=== PATIENT | female | born 1960 | race Caucasian/White ===

== ENCOUNTER 2016-04-17 13:51 | Emergency (ER) | payer MEDICARE, OTHER ==
[2016-04-17] MEDS ORDERED: SODIUM CHLORIDE 0.9% 1,000 ML IV STA (15:40)
[2016-04-17] MEDS ORDERED: HYDROmorphone 1 MG/ML 1 ML SYRINGE IVP STA (15:40)
[2016-04-17] MEDS ORDERED: RX INFO: IV CONTRAST WAS GIVEN 1 EACH MISC MISCELLANE PRN (15:40)
[2016-04-17] MEDS ORDERED: ONDANSETRON 4 MG/2 ML VIAL IVP STA (15:40)
--- NOTE | 2016-04-17 15:50 | ED ---
Abdominal Pain HPI - General Chief Complaint: Abdominal Pain Stated Complaint: abdominal pain/poss bowel obstruction Time Seen by Provider: 04/17/16 15:33 Source: patient, RN notes reviewed Mode of arrival: ambulatory Limitations: no limitations - History of Present Illness Initial Comments: 54 old female presents to the emergency department with a chief complaint of abdominal pain. Patient recently had an obstruction back in February and did have: Surgery due to the obstruction. Patient states that over the last week or so she's noticed some increased nausea and some abdominal pain and now her belly feels hard. She contacted her surgeon Dr. Sanchez about what she was feeling and he referred her to the emergency room. She was scheduled to have a CAT scan done outpatient we however her symptoms worsen so she came to the ER. The patient denies any fever or chills. She states she is having dry heaves. She states that she has had a bowel movement about 2 days ago. Patient states she is passing very minimal gas. Patient states she was concerned due to symptoms that she thought that they should be seen.Patient denies any recent fever, chills, shortness of breath, chest pain, back pain, numbness or tingling , dysuria or hematuria, constipation or diarrhea, headaches or visual changes, or any other current symptoms. - Related Data Home Medications Medication Instructions Recorded Confirmed ALPRAZolam [Xanax] 1 mg PO QID PRN 03/21/16 04/17/16 Albuterol Inhaler [Ventolin Hfa 2 puff INHALATION RT-Q4H PRN 03/21/16 04/17/16 Inhaler] DULoxetine HCL [Cymbalta] 60 mg PO DAILY 03/21/16 04/17/16 Fluticasone Nasal [place] [Flonase 1 spr EA NOSTRIL DAILY PRN 03/21/16 04/17/16 Nasal [place]] HYDROcodone/APAP 10-325MG [[place] 1 tab PO Q6H PRN 03/21/16 04/17/16 10-325] Ibuprofen [Motrin] 800 mg PO TID PRN 03/21/16 04/17/16 Promethazine [Phenergan] 25 mg PO HS PRN 03/21/16 04/17/16 SUMAtriptan SUCCINATE [Imitrex] 100 mg PO DAILY PRN 12/22/16 01/18/17 Topiramate [Topamax] 25 mg PO HS 03/21/16 04/17/16 carBAMazepine [TEGretol] 400 mg PO Q12H 03/21/16 04/17/16 hydrOXYzine HCL [Atarax] 50 mg PO TID PRN 03/21/16 04/17/16 Bisacodyl [Dulcolax] 5 mg PO BID PRN 04/17/16 04/17/16 Estradiol [Estrace] 1 mg PO DAILY 04/17/16 04/17/16 Previous Rx's Medication Instructions Recorded Docusate [Colace] 100 mg PO BID PRN #30 capsule 03/28/16 Allergies Allergy/AdvReac Type Severity Reaction Status Date / Time No Known Allergies Allergy Verified 04/17/16 15:55 Review of Systems ROS Statement: Those systems with pertinent positive or pertinent negative responses have been documented in the HPI. ROS Other: All systems not noted in ROS Statement are negative. Past Medical History Additional Past Medical History / Comment(s): anxiety, chronic back pain, ulcers , chronic samuel-bladder only holds 100ml per pt. History of Any Multi-Drug Resistant Organisms: None Reported Past Surgical History: Cholecystectomy, Hysterectomy Additional Past Surgical History / Comment(s): bladder suspension, gastric bypass, bowel obstruction Past Anesthesia/Blood Transfusion Reactions: No Reported Reaction Past Psychological History: Anxiety, Bipolar Smoking Status: Never smoker Past Alcohol Use History: None Reported Past Drug Use History: None Reported - Past Family History Mother Additional Family Medical History / Comment(s): no history General Exam - General Exam Comments Initial Comments: General: The patient is awake and alert, in no distress, and does not appear acutely ill. Eye: Pupils are equal, round and reactive to light, extra-ocular movements are intact; there is normal conjunctiva bilaterally. No signs of icterus. Ears, nose, mouth and throat: There are moist mucous membranes and no oral lesions. Neck: The neck is supple, there is no tenderness. Cardiovascular: There is a regular rate and rhythm. No murmur, rub or gallop is appreciated. Respiratory: Lungs are clear to auscultation, respirations are non-labored, breath sounds are equal. No wheezes, stridor, rales, or rhonchi. Gastrointestinal: Heart, distended, tenderness in lower quadrant of the abdomen without masses or organomegaly noted. There is no rebound or guarding present. No CVA tenderness. Bowel sounds are unremarkable. Back: There is no tenderness to palpation in the midline. There is no obvious deformity. No rashes noted. Musculoskeletal: Normal ROM, no tenderness, There is no pedal edema. There is no calf tenderness or swelling. Sensation intact. Pulses equal bilaterally 2+. Neurological: CN II-XII intact, There are no obvious motor or sensory deficits. Coordination appears grossly intact. Speech is normal. Skin: Skin is warm and dry and no rashes or lesions are noted. Psychiatric: Cooperative, appropriate mood & affect, normal judgment. Limitations: no limitations Course Vital Signs 04/17/16 04/17/16 14:35 16:32 Temperature 98.0 F Pulse Rate 84 76 Respiratory 18 14 Rate Blood Pressure 202/104 187/102 O2 Sat by Pulse 99 96 Oximetry Medical Decision Making - Medical Decision Making 55-year-old female presents emergency department with a chief complaint of abdominal pain with history of abdominal surgery. At this time patient's blood work is reviewed that does show hyponatremia. Patient did receive a liter of fluids when looking through previous Nae does appear that she does suffer from hyponatremia chronically. Patient's CAT scan results reviewed and Dr. Biswas was contacted via Dr. English for review. At this time Dr. Sanchez states he like to follow-up with the patient in the morning. He was informed of lab results as well as CT results he states he will see her in the morning at the office. This time the patient is in agreement with plan and does feel comfortable. At this time she will be discharged home. She states that she is feeling better. - Lab Data Result diagrams: 04/17/16 16:10 04/17/16 16:10 Lab Results 04/17/16 04/17/16 04/17/16 Range/Units 16:10 16:10 16:10 WBC 5.5 (3.8-10.6) k/uL RBC 3.83 (3.80-5.40) m/uL Hgb 11.6 (11.4-16.0) gm/dL Hct 34.5 (34.0-46.0) % MCV 90.2 D (80.0-100.0) fL MCH 30.2 (25.0-35.0) pg MCHC 33.5 (31.0-37.0) g/dL RDW 13.0 (11.5-15.5) % Plt Count 704 H (150-450) k/uL Neutrophils % 67 % Lymphocytes % 20 % Monocytes % 6 % Eosinophils % 4 % Basophils % 1 % Neutrophils # 3.7 (1.3-7.7) k/uL Lymphocytes # 1.1 (1.0-4.8) k/uL Monocytes # 0.3 (0-1.0) k/uL Eosinophils # 0.2 (0-0.7) k/uL Basophils # 0.0 (0-0.2) k/uL PT 9.4 (9.0-12.0) sec INR 0.9 (<1.1) APTT 23.5 (22.0-30.0) sec Sodium 123 L (137-145) mmol/L Potassium 4.3 (3.5-5.1) mmol/L Chloride 90 L (98-107) mmol/L Carbon Dioxide 21 L (22-30) mmol/L Anion Gap 12 mmol/L BUN 7 (7-17) mg/dL Creatinine 0.46 L (0.52-1.04) mg/dL Est GFR (MDRD) Af Amer >60 (>60 ml/min/1.73 sqM) Est GFR (MDRD) Non-Af >60 (>60 ml/min/1.73 sqM) Glucose 103 H (74-99) mg/dL Calcium 9.3 (8.4-10.2) mg/dL Total Bilirubin 0.4 (0.2-1.3) mg/dL AST 13 L (14-36) U/L ALT 49 (9-52) U/L Alkaline Phosphatase 196 H (38-126) U/L Total Protein 7.0 (6.3-8.2) g/dL Albumin 3.8 (3.5-5.0) g/dL Amylase 59 (30-110) U/L Urine Color Urine Appearance (Clear) Urine pH (5.0-8.0) Ur Specific [place] (1.001-1.035) Urine Protein (Negative) Urine Glucose (UA) (Negative) Urine Ketones (Negative) Urine Blood (Negative) Urine Nitrate (Negative) Urine Bilirubin (Negative) Urine Urobilinogen (<2.0) mg/dL Ur Leukocyte Esterase (Negative) 04/17/16 Range/Units 16:25 WBC (3.8-10.6) k/uL RBC (3.80-5.40) m/uL Hgb (11.4-16.0) gm/dL Hct (34.0-46.0) % MCV (80.0-100.0) fL MCH (25.0-35.0) pg MCHC (31.0-37.0) g/dL RDW (11.5-15.5) % Plt Count (150-450) k/uL Neutrophils % % Lymphocytes % % Monocytes % % Eosinophils % % Basophils % % Neutrophils # (1.3-7.7) k/uL Lymphocytes # (1.0-4.8) k/uL Monocytes # (0-1.0) k/uL Eosinophils # (0-0.7) k/uL Basophils # (0-0.2) k/uL PT (9.0-12.0) sec INR (<1.1) APTT (22.0-30.0) sec Sodium (137-145) mmol/L Potassium (3.5-5.1) mmol/L Chloride (98-107) mmol/L Carbon Dioxide (22-30) mmol/L Anion Gap mmol/L BUN (7-17) mg/dL Creatinine (0.52-1.04) mg/dL Est GFR (MDRD) Af Amer (>60 ml/min/1.73 sqM) Est GFR (MDRD) Non-Af (>60 ml/min/1.73 sqM) Glucose (74-99) mg/dL Calcium (8.4-10.2) mg/dL Total Bilirubin (0.2-1.3) mg/dL AST (14-36) U/L ALT (9-52) U/L Alkaline Phosphatase (38-126) U/L Total Protein (6.3-8.2) g/dL Albumin (3.5-5.0) g/dL Amylase (30-110) U/L Urine Color Colorless Urine Appearance Clear (Clear) Urine pH 6.5 (5.0-8.0) Ur Specific [place] 1.002 (1.001-1.035) Urine Protein Negative (Negative) Urine Glucose (UA) Negative (Negative) Urine Ketones Negative (Negative) Urine Blood Negative (Negative) Urine Nitrate Negative (Negative) Urine Bilirubin Negative (Negative) Urine Urobilinogen <2.0 (<2.0) mg/dL Ur Leukocyte Esterase Negative (Negative) - Radiology Data Radiology results: report reviewed, image reviewed Disposition Clinical Impression: Abdominal pain, Hyponatremia Disposition: HOME SELF-CARE Condition: Stable Instructions: Abdominal Pain (ED) Additional Instructions: Please use medication as discussed. Please follow up with family doctor if symptoms have not improved over the next two days. Please return to the emergency room if your symptoms increase or worsen or for any other concerns. Follow-up with Dr. Biswas in the morning. Referrals: Brenden Bolanos MD [Primary Care Provider] - 1-2 days Wilfrid Sanchez MD [Medical Doctor] - 1-2 days Time of Disposition: 18:05
[2016-04-17 16:35] LABS: Basophils % (A) 1 %; CH 31.4; CHCM 34.9; Eosinophils # (A) 0.2 k/uL (0-0.7); Eosinophils % (A) 4 %; HCT 34.5 % (34.0-46.0); HDW 2.94; HGB 11.6 gm/dL (11.4-16.0); Luc # (Auto) 0.14; Luc % (Auto) 3; Lymphocytes # (A) 1.1 k/uL (1.0-4.8); Lymphocytes % (A) 20 %; MCH 30.2 pg (25.0-35.0); MCHC 33.5 g/dL (31.0-37.0); Mean Platelet Volume 6.3; Monocytes # (A) 0.3 k/uL (0-1.0); Monocytes % (A) 6 %; Neutrophils # (A) 3.7 k/uL (1.3-7.7); Neutrophils % (A) 67 %; RBC 3.83 m/uL (3.80-5.40); WBC 5.5 k/uL (3.8-10.6); WBC (Perox) 5.79
[2016-04-17 16:42] LABS: INR 0.9 (<1.1); Partial Thromboplastin Time 23.5 sec (22.0-30.0); Prothrombin Time 9.4 sec (9.0-12.0)
[2016-04-17 16:43] LABS: MCV 90.2 fL (80.0-100.0)
[2016-04-17 16:46] LABS: ALT 49 U/L (9-52); AST 13 U/L (14-36); Alkaline Phosphatase 196 U/L (38-126); Amylase 59 U/L (30-110); Anion Gap 12 mmol/L; Blood Urea Nitrogen 7 mg/dL (7-17); Calcium 9.3 mg/dL (8.4-10.2); Carbon Dioxide 21 mmol/L (22-30); Chloride 90 mmol/L (98-107); Glucose 103 mg/dL (74-99); Non-African American GFR(MDRD) >60 (>60 ml/min/1.73 sqM); Potassium 4.3 mmol/L (3.5-5.1); Sodium 123 mmol/L (137-145); Total Bilirubin 0.4 mg/dL (0.2-1.3)
[2016-04-17 17:07] LABS: Appearance,Urine Clear (Clear); Bilirubin,Urine Negative (Negative); Glucose,Urine (UA) Negative (Negative); Ketones,Urine Negative (Negative); Leukocyte Esterase,Urine Negative (Negative); Nitrite,Urine Negative (Negative); PH, Urine 6.5 (5.0-8.0); Protein,Urine Negative (Negative); Specific Gravity,Urine 1.002 (1.001-1.035); UA Billing (MACRO vs. MICRO) CHEM; Urobilinogen,Urine <2.0 mg/dL (<2.0)
--- NOTE | 2016-04-17 17:09 | CT ---
EXAMINATION TYPE: CT abdomen pelvis w con DATE OF EXAM: 04/17/2016 4:52 PM COMPARISON: 03/21/2016 HISTORY: 55-year-old female 1 month post op obstruction surgery. Generalized pain with nausea TECHNIQUE: Contiguous axial scanning of the abdomen and pelvis following administration of 100 ml Omn ipaque 300 IV contrast. Delayed images through the kidneys and coronal/sagittal reconstructions perf ormed. CT DLP: 331.4 mGycm Automated exposure control for dose reduction was used. FINDINGS: Bilateral breast implants. Heart is normal size without pericardial effusion. Lung bases are clear without pleural effusion.. Redemonstrated intrahepatic and extrahepatic ductal dilatation with the bile duct measuring 1.5 cm. C holecystectomy clips are present. Portal venous system appears patent. No focal liver lesions seen. Adrenal glands, left kidney, spleen, pancreas appear grossly unremarkable. There are reticulations within the subcutaneous fat of the anterior abdomen and some focal thickening in the midline infraumbilical region along the anterior abdominal wall. Embedded within this thicken ing, there is a right paramedian area of 1.9 cm hyperdensity of unknown etiology, axial image 46 and coronal image 12. Numerous fluid-filled small bowel loops in the mid and lower abdomen. No dilated small bowel, free fl uid, or free air. Postsurgical changes of Sonia-en-Y gastric bypass. There appears to be some retained barium contrast w ithin some of the mid abdominal small bowel loops near the lower anastomosis. Paucity of intra-abdominal fat limits assessment for lymphadenopathy. Bladder is nondistended with Storey catheter in place. Uterus and ovaries not clearly delineated from clustered bowel loops. No abnormal fluid collection in the pelvis. Bones: No osseous destructive process. IMPRESSION: 1. SOME MILD INFLAMMATION ALONG THE MID TO LOWER ANTERIOR ABDOMINAL WALL COULD BE ON A POSTSURGICAL B ASIS. CORRELATE TO EXCLUDE CELLULITIS. 2. THERE IS FOCAL THICKENING OF THE INFRAUMBILICAL ABDOMINAL WALL MUSCULATURE ALONG THE MIDLINE WITH A RIGHT PARAMEDIAN FOCUS OF HYPERDENSITY MEASURING 1.9 CM EMBEDDED WITHIN THE MUSCULATURE. THE ETIOLO GY IS UNCERTAIN BUT DOES NOT APPEAR TO REPRESENT A FOCAL AREA OF HEMORRHAGE. POSSIBLE RETAINED SURGIC AL MATERIAL. CONSIDER TARGETED ULTRASOUND TO ATTEMPT FURTHER CHARACTERIZATION. 3. PERSISTENT INTRAHEPATIC AND EXTRA HEPATIC BILIARY DUCTAL DILATATION GREATER THAN EXPECTED POSTCHOL ECYSTECTOMY STATUS. FINDINGS MAY BE CHRONIC. CORRELATE WITH ALKALINE PHOSPHATASE AND BILIRUBIN LEVELS TO EXCLUDE BILIARY OBSTRUCTION.
[2016-04-17 18:51] VITALS: BP 165/95; PULSE 85; RESP 18; TEMP 99
== END 2016-04-17 18:52 | disposition home or self-care (01) ==
LOC: EC 13:51
DX: E87.1 Hypo-osmolality and hyponatremia (principal); R10.9 Unspecified abdominal pain; F41.9 Anxiety disorder, unspecified; F31.9 Bipolar disorder, unspecified; Z98.84 Bariatric surgery status; Z79.899 Other long term (current) drug therapy
CPT/HCPCS: 99284; 96374; 96375; 96361 ×2; 36415; 80053; 82150; 85025; 85610; 85730; 81003; 87040; 87086; 87077; 87186; 74177; J2405; J1170; Q9967

== ENCOUNTER 2016-04-24 18:38 | Inpatient (IN) | payer MEDICARE, OTHER ==
[2016-04-24] MEDS ORDERED: MELATONIN 3 MG TABLET PO PRN (20:09)
[2016-04-24] MEDS ORDERED: NALOXONE 0.4 MG/ML 1 ML VIAL IV PRN (20:09)
[2016-04-24] MEDS ORDERED: BISACODYL 5 MG TABLET.DR PO PRN (20:11)
[2016-04-24] MEDS ORDERED: hydrOXYzine HCL 25 MG TAB PO PRN (20:11)
[2016-04-24] MEDS ORDERED: FLUTICASONE 50MCG/SPRAY NASAL 16GM EA NOSTRIL PRN (20:11)
[2016-04-24] MEDS ORDERED: DOCUSATE 100 MG CAP PO PRN (20:11)
[2016-04-24] MEDS ORDERED: ALBUTEROL NEBULIZED 2.5 MG/3 ML INHALATION PRN (20:11)
[2016-04-24] MEDS ORDERED: LACTATED RINGERS 1,000 ML IV SCH (20:15)
[2016-04-24 21:02] LABS: ALT 28 U/L (9-52); AST 14 U/L (14-36); Alkaline Phosphatase 149 U/L (38-126); Amylase 100 U/L (30-110); Anion Gap 10 mmol/L; Blood Urea Nitrogen 10 mg/dL (7-17); Calcium 9.1 mg/dL (8.4-10.2); Carbon Dioxide 24 mmol/L (22-30); Chloride 100 mmol/L (98-107); Glucose 132 mg/dL (74-99); Non-African American GFR(MDRD) >60 (>60 ml/min/1.73 sqM); Phosphorous 4.2 mg/dL (2.5-4.5); Potassium 5.5 mmol/L (3.5-5.1); Sodium 134 mmol/L (137-145); Total Bilirubin 0.3 mg/dL (0.2-1.3); Total Protein 6.8 g/dL (6.3-8.2)
[2016-04-24 21:16] LABS: Basophils # (A) 0.1 k/uL (0-0.2); Basophils % (A) 1 %; CH 30.2; CHCM 31.8; Eosinophils # (A) 0.9 k/uL (0-0.7); Eosinophils % (A) 10 %; HCT 34.3 % (34.0-46.0); HDW 2.82; Hypochromasia Slight; Luc # (Auto) 0.18; Luc % (Auto) 2; Lymphocytes # (A) 1.8 k/uL (1.0-4.8); Lymphocytes % (A) 20 %; MCH 30.5 pg (25.0-35.0); Mean Platelet Volume 6.2; Monocytes # (A) 0.4 k/uL (0-1.0); Monocytes % (A) 4 %; Neutrophils # (A) 5.7 k/uL (1.3-7.7); Neutrophils % (A) 64 %; RDW 13.5 % (11.5-15.5); WBC (Perox) 9.42
[2016-04-24 21:24] LABS: MCV 95.4 fL (80.0-100.0)
[2016-04-24] MEDS: HYDROcodone/APAP 5-325MG 1 EACH TAB PO PRN (21:54)
[2016-04-24] MEDS: ALPRAZolam 0.5 MG TAB PO PRN (21:55)
[2016-04-24] MEDS: TOPIRAMATE 25 MG TAB PO SCH (21:56)
[2016-04-24] MEDS: carBAMazepine 200 MG TAB PO SCH (21:56)
[2016-04-24] MEDS: ZOLPIDEM 10 MG TAB PO SCH (22:59)
[2016-04-25] MEDS: HYDROcodone/APAP 5-325MG 1 EACH TAB PO PRN ×5 (02:20→19:48)
[2016-04-25] MEDS: ESTRADIOL 1 MG TAB PO SCH (08:04)
[2016-04-25] MEDS: DULoxetine HCL 60 MG CAPSULE.DR PO SCH (08:04)
[2016-04-25] MEDS: carBAMazepine 200 MG TAB PO SCH ×2 (08:04→21:15)
[2016-04-25] MEDS: ALPRAZolam 0.5 MG TAB PO PRN ×3 (09:22→22:47)
[2016-04-25] MEDS: KETOROLAC 30 MG/ML 1 ML VIAL IVP PRN ×2 (10:40→17:38)
[2016-04-25] MEDS ORDERED: IV VANCOMYCIN PER PHARMACY 1 EACH MISC MISCELLANE PRN (10:52)
[2016-04-25] MEDS: SUMAtriptan SUCCINATE 50 MG TAB PO PRN (11:45)
[2016-04-25] MEDS: VANCOMYCIN 1,000 MG in SODIUM CHLORIDE 0.9% 250 ML IVPB SCH ×2 (11:46→21:52)
[2016-04-25 11:50] LABS: ALT 30 U/L (9-52); AST 16 U/L (14-36); Alkaline Phosphatase 149 U/L (38-126); Anion Gap 9 mmol/L; Blood Urea Nitrogen 8 mg/dL (7-17); Calcium 8.8 mg/dL (8.4-10.2); Carbon Dioxide 25 mmol/L (22-30); Chloride 94 mmol/L (98-107); Glucose 82 mg/dL (74-99); Non-African American GFR(MDRD) >60 (>60 ml/min/1.73 sqM); Potassium 5.4 mmol/L (3.5-5.1); Sodium 128 mmol/L (137-145); Total Bilirubin 0.3 mg/dL (0.2-1.3); Total Protein 6.4 g/dL (6.3-8.2)
--- NOTE | 2016-04-25 15:06 | HP ---
DATE OF ADMISSION: Patient is transferred from [facility] because of gaping of her abdominal surgical wound. Patient had sigmoid colectomy. Patient went home and patient was complaining of severe pain in that area along with fever. Although fever is not evidenced here. Patient was complaining of bloody and pus coming out of it. Apparently as per the history I am able to get from the nursing staff from here and from the other hospital, apparently patient has a bloody drainage. No pus drainage was evident. Clinically patient has solid heart mass on palpation and apparently there is a mass on the pancreas, but I am trying to get the CAT scan from [facility] to be loaded to our system. CAT scan was done a couple days ago here. It did not show any such mass. As per that CAT scan, patient had ( ), although on clinical exam the mass is quite hard, appears to be fibroma. Anyways, the patient here did not have any fevers. Complaining of severe 10/10, sharp pain in that area where she has gaping of her surgical wound. REVIEW OF SYSTEMS: CONSTITUTIONAL: No fever, no malaise, no fatigue. HEENT: No recent visual problems or hearing problems. Denied any sore throat. CARDIOVASCULAR: No chest pain, orthopnea, PND, no palpitations, no syncope. PULMONARY: No shortness of breath, no cough, no hemoptysis. GASTROINTESTINAL: As described in HPI. NEUROLOGICAL: No headaches, no weakness, no numbness. HEMATOLOGICAL: Denies any bleeding or petechiae. GENITOURINARY: Denies any burning micturition, frequency, or urgency. MUSCULOSKELETAL/RHEUMATOLOGICAL: Denies any joint pain, swelling, or any muscle pain. ENDOCRINE: Denies any polyuria or polydipsia. The rest of the 14 point review of systems is negative. PAST MEDICAL HISTORY: Chronic low back pain. Patient has an ICD secondary to pain during her last hospitalization. History of bariatric surgery, bladder cancer surgery, cholecystectomy, hysterectomy, bladder suspension surgery. Anxiety, bipolar, former smoker. Quit smoking in 1998. Denied any alcohol abuse or any drug abuse. FAMILY HISTORY: Denied any family history of hypertension or diabetes mellitus, PHYSICAL EXAMINATION: Temperature 96.9, pulse of 69, respiratory rate of 16, blood pressure is 132/87. GENERAL: The patient is alert and oriented x3, not in any acute distress. Well developed, well nourished. HEENT: Pupils are round and equally reacting to light. EOMI. No scleral icterus. No conjunctival pallor. Normocephalic, atraumatic. No pharyngeal erythema. No thyromegaly. CARDIOVASCULAR: S1 and S2 present. No murmurs, rubs, or gallops. PULMONARY: Chest is clear to auscultation, no wheezing or crackles. ABDOMEN: Surgical site area, there is definitely gaping of wound. Clinically does not appear like patient had any infection, although there is some inflammation surrounding that area. Patient has a hard mass about 4 cm diameter on the surgical site area. MUSCULOSKELETAL: No joint swelling or deformity. EXTREMITIES: No cyanosis, clubbing, or pedal edema. NEUROLOGICAL: Gross neurological examination did not reveal any focal deficits. SKIN: No rashes. LABORATORY DATA: CBC and BMP are abnormal for low sodium of 134. It has actually gone down because of lactated Ringer's. As patient has SAIDH patient needs to be fluid restricted. ASSESSMENT AND PLAN: 1. Given her surgical site area infection cannot be ruled out. I will obtain wound cultures and consult Infectious Disease. Patient will be started on vancomycin for now. I suspect clinically patient does not appear to have any infection in the surgical site area. 2. Hyponatremia secondary to patient has a known history of syndrome of inappropriate antidiuretic hormone secretion and patient's sodium did go down because of lactated Ringer's. I will hold off on lactated Ringer's, fluid restriction to 1500 mL. 3. History of sigmoid colitis for which patient underwent sigmoid colectomy. 4. Anxiety disorder. 5. Dr. Sanchez and Infectious Disease were consulted. 6. For her psychiatric problems and migraine, patient will be continued on Imitrex, Tegretol and Duloxetine.
[2016-04-25] MEDS: ENOXAPARIN 40 MG/0.4 ML SYRINGE SQ SCH (15:09)
[2016-04-25] MEDS: PIPERACILLIN-TAZOBACTAM 3.375 GM in DEXTROSE/WATER 1 50ML.BAG IVPB SCH (15:14)
--- NOTE | 2016-04-25 16:12 | P.GSCN ---
History of Present Illness Consult date: 04/25/16 Reason for Consult: Abdominal wall hematoma History of present illness: Patient well-known to our service. 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 She has had intermittent abdominal discomforts postop. She was seen in the ER on 04/17 with abdominal pain. A CAT scan showed swelling of the abdominal wall. There was a lucency within a fluid collection in the abdominal wall which in retrospect likely represented a site of bleeding. She was seen in the office last week after that and had fullness of the abdominal wall thought to represent a probable hematoma. Yesterday the patient's incision opened up slightly with some bloody fluid. She went to the ER. The fluid collection actually seems somewhat smaller however the patient is having more tenderness in that location and even a little bit of erythema. She was admitted to our hospital for that reason. Additionally the CAT scan brought to our attention dilation of the biliary tree that was present previously however on this CAT scan there was concern for the possibility of a pancreatic mass. MRI was advised. Patient is otherwise eating without nausea or vomiting. Bowel function seems to be adequate. White blood cell count normal. Review of Systems The patient denies any acute changes in his vision or hearing, no dysphagia or odynophagia, no chest pain or shortness of breath, no dysuria or hematuria, no headache, no runny nose, no rectal bleeding or melena, no unexplained weight loss Past Medical History Additional Past Medical History / Comment(s): anxiety, chronic back pain, ulcers , chronic samuel-bladder only holds 100ml per pt."HAD PNE VACCINE 2 YEARS AGO , NOT SURE OF DATE" DR BEKAH ALVAREZ UNABLE TO VERIFY DATE AT TIME OF ADMIT. History of Any Multi-Drug Resistant Organisms: None Reported Past Surgical History: Bariatric Surgery, Bladder Surgery, Cholecystectomy, Hysterectomy Additional Past Surgical History / Comment(s): bladder suspension, gastric bypass, colon volvulus had exporatory lap w/lysis of adhesions and rt colectomy Past Anesthesia/Blood Transfusion Reactions: No Reported Reaction Past Psychological History: Anxiety, Bipolar Smoking Status: Former smoker Past Alcohol Use History: None Reported Additional Past Alcohol Use History / Comment(s): started smoking at age 16(1976 ) smoked 2 ppd, quit 1998 Past Drug Use History: None Reported - Past Family History Mother Additional Family Medical History / Comment(s): no history Father Additional Family Medical History / Comment(s): from alcoholism Medications and Allergies Home Medications Medication Instructions Recorded Confirmed Type ALPRAZolam [Xanax] 1 mg PO QID PRN 03/21/16 04/24/16 History Albuterol Inhaler [Ventolin Hfa 2 puff INHALATION RT-Q4H PRN 03/21/16 04/24/16 History Inhaler] DULoxetine HCL [Cymbalta] 60 mg PO DAILY 03/21/16 04/24/16 History Fluticasone Nasal [place] [Flonase 1 spr EA NOSTRIL DAILY PRN 03/21/16 04/24/16 History Nasal [place]] HYDROcodone/APAP 10-325MG [[place] 1 tab PO Q6H PRN 03/21/16 04/24/16 History 10-325] Ibuprofen [Motrin] 800 mg PO TID PRN 03/21/16 04/24/16 History Promethazine [Phenergan] 25 mg PO HS PRN 03/21/16 04/24/16 History SUMAtriptan SUCCINATE [Imitrex] 100 mg PO DAILY PRN 03/21/16 04/24/16 History Topiramate [Topamax] 25 mg PO HS 03/21/16 04/24/16 History carBAMazepine [TEGretol] 400 mg PO Q12H 03/21/16 04/24/16 History hydrOXYzine HCL [Atarax] 50 mg PO TID PRN 03/21/16 04/24/16 History Bisacodyl [Dulcolax] 10 mg PO DAILY PRN 04/17/16 04/24/16 History Estradiol [Estrace] 1 mg PO DAILY 04/17/16 04/24/16 History Zolpidem [Ambien] 10 mg PO HS 04/24/16 04/24/16 History Allergies Allergy/AdvReac Type Severity Reaction Status Date / Time No Known Allergies Allergy Verified 04/24/16 20:04 Surgical - Exam Vital Signs Temp Pulse Resp BP Pulse Ox 97.8 F 73 20 148/81 96 04/24/16 19:53 04/24/16 19:53 04/24/16 19:53 04/24/16 19:53 04/24/16 19:53 Physical exam: General: Elderly female appears older than stated age, thin-appearing HEENT: Normocephalic, sclerae nonicteric Abdomen: Nondistended, hematoma abdominal wall with some ecchymosis present slight erythema, mild tenderness, small wound measuring only a few millimeters in size with some old bloody drainage Extremities: No edema Neuro: Alert and oriented Results - Labs 04/24/16 20:33 04/25/16 11:01 Abnormal Lab Results - Last 24 Hours (Table) 04/24/16 04/24/16 04/25/16 Range/Units 20:33 20:33 11:01 RBC 3.60 L (3.80-5.40) m/uL Hgb 11.0 L (11.4-16.0) gm/dL Plt Count 781 H (150-450) k/uL Eosinophils # 0.9 H (0-0.7) k/uL Sodium 134 L 128 L (137-145) mmol/L Potassium 5.5 H 5.4 H (3.5-5.1) mmol/L Chloride 94 L (98-107) mmol/L Glucose 132 H (74-99) mg/dL Alkaline Phosphatase 149 H 149 H (38-126) U/L Albumin 3.4 L (3.5-5.0) g/dL Microbiology - Last 24 Hours (Table) 04/25/16 11:40 Wound Culture - Preliminary Abdomen 04/25/16 11:40 Anaerobic Culture - Preliminary Abdomen Diabetes panel 04/24/16 04/25/16 Range/Units 20:33 11:01 Sodium 134 L 128 L (137-145) mmol/L Potassium 5.5 H 5.4 H (3.5-5.1) mmol/L Chloride 100 94 L (98-107) mmol/L Carbon Dioxide 24 25 (22-30) mmol/L BUN 10 8 (7-17) mg/dL Creatinine 0.59 0.54 (0.52-1.04) mg/dL Glucose 132 H 82 (74-99) mg/dL Calcium 9.1 8.8 (8.4-10.2) mg/dL AST 14 16 (14-36) U/L ALT 28 30 (9-52) U/L Alkaline Phosphatase 149 H 149 H (38-126) U/L Total Protein 6.8 6.4 (6.3-8.2) g/dL Albumin 3.7 3.4 L (3.5-5.0) g/dL Calcium panel 04/24/16 04/25/16 Range/Units 20:33 11:01 Calcium 9.1 8.8 (8.4-10.2) mg/dL Phosphorus 4.2 (2.5-4.5) mg/dL Albumin 3.7 3.4 L (3.5-5.0) g/dL Pituitary panel 04/24/16 04/25/16 Range/Units 20:33 11:01 Sodium 134 L 128 L (137-145) mmol/L Potassium 5.5 H 5.4 H (3.5-5.1) mmol/L Chloride 100 94 L (98-107) mmol/L Carbon Dioxide 24 25 (22-30) mmol/L BUN 10 8 (7-17) mg/dL Creatinine 0.59 0.54 (0.52-1.04) mg/dL Glucose 132 H 82 (74-99) mg/dL Calcium 9.1 8.8 (8.4-10.2) mg/dL Adrenal panel 04/24/16 04/25/16 Range/Units 20:33 11:01 Sodium 134 L 128 L (137-145) mmol/L Potassium 5.5 H 5.4 H (3.5-5.1) mmol/L Chloride 100 94 L (98-107) mmol/L Carbon Dioxide 24 25 (22-30) mmol/L BUN 10 8 (7-17) mg/dL Creatinine 0.59 0.54 (0.52-1.04) mg/dL Glucose 132 H 82 (74-99) mg/dL Calcium 9.1 8.8 (8.4-10.2) mg/dL Total Bilirubin 0.3 0.3 (0.2-1.3) mg/dL AST 14 16 (14-36) U/L ALT 28 30 (9-52) U/L Alkaline Phosphatase 149 H 149 H (38-126) U/L Total Protein 6.8 6.4 (6.3-8.2) g/dL Albumin 3.7 3.4 L (3.5-5.0) g/dL Assessment and Plan (1) Abdominal wall hematoma Narrative/Plan: Patient's current CAT scan and the prior CAT scans were reviewed with radiologist today. They advise MRI to evaluate the head of the pancreas. The patient states that she has had this looked into in the past but of course she cannot provide any significant details. This previous workup took place in [place]. We would advise incision and drainage of the abdominal wall hematoma at this time. We'll proceed with that tomorrow. Risks of bleeding, infection, wound formation, possible identification of fistula formation was discussed. She understands and wishes to proceed. Status: Acute
--- NOTE | 2016-04-25 17:05 | CONS ---
DATE OF CONSULTATION: 04/25/2016 REASON FOR CONSULTATION: Abdominal wall abscess. HISTORY OF PRESENT ILLNESS: The patient is a 55-year-old female who was recently admitted to the [facility] back in February 2016 when the patient did have volvulus of the cecum and ascending colon. The patient is status post exploratory laparotomy with lysis of adhesions and right colectomy by Dr. Sanchez. The patient did seem to have some problem with a postoperative wound dehiscence and has been treated locally by her surgeon. The patient now mentioning that for the last few days though the wound has closed up the area is becoming more swollen, more red and painful. The patient described the pain to be throbbing 5 to 6 out of 10 and no radiation. The area later on opened up and drainage of some pus and blood for which the patient went to the [facility]. The patient has been evaluated at this facility. The patient did have a CT of the abdomen and pelvis; however, subsequently the patient had been transferred to the [facility] to bed evaluated by her surgeon. The patient denies any chest pain or shortness of breath and denies having fever and no diarrhea. No nausea or vomiting. REVIEW OF SYSTEMS: CONSTITUTIONAL: Positive for weakness. EYES: No complaint. ENT: No complaint. RESPIRATORY: No complaint. CARDIOVASCULAR: No complaint. GENITOURINARY: No complaint. GASTROINTESTINAL: As per HPI. MUSCULOSKELETAL: No complaint. INTEGUMENTARY: No complaint. PSYCHOLOGICAL: No complaint. ENDOCRINE: No complaint. NEUROLOGIC: No complaint. PAST MEDICAL HISTORY: Chronic back pain. Recent admission to the hospital with volvulus. Anxiety, bipolar disorder. PAST SURGICAL HISTORY: Bladder cancer surgery, bariatric surgery, cholecystectomy, hysterectomy, bladder suspension surgery, recent laparotomy and colectomy for the volvulus. SOCIAL HISTORY: The patient has history of smoking, quit back in 1998. Denies any drinking or drug use. FAMILY HISTORY: No pertinent findings noticed. ALLERGIES: No known drug allergies. Medications currently include the patient is on [place], Ventolin, Xanax, Dulcolax, Tegretol, Colace, Cymbalta, Lovenox, Flonase, Peridex, Toradol, melatonin, Narcan, Topamax, Vancomycin. On examination, blood pressure is 132/87, pulse of 59, temperature 96.9. She is 99% on room air. General description is a middle-age female lying in bed in no distress. No tachypnea or accessory muscles of respiration use. HEENT examination shows slight pallor. There is no scleral icterus. Oral mucous membrane is dry. NECK: Trachea central. There is no thyromegaly. LUNGS: Unlabored breathing. Clear to auscultation anteriorly. HEART: S1, S2 with regular rate and rhythm. ABDOMEN: Soft. She did have a midline incision. Area is swollen and red with slight blood stained drainage. Was tender to touch. No pus was expressed out. EXTREMITIES: No edema of feet. SKIN: No rash or mass palpable. NEUROLOGICAL: The patient is awake, alert, oriented x3. Mood and affect normal. LABS: Hemoglobin is 11, white count 9 with a BUN of 8, creatinine of 0.54. Potassium is 5.4. Cultures not done. DIAGNOSTIC IMPRESSION AND PLAN: Patient with abdominal wall possible abscess or infected seroma/hematoma in a patient who did have recent surgery for volvulus status post partial colectomy with postoperative problem with nonhealing of the wound. The likely organism we need to cover is both the entire gram-negative in addition to the gram-positive skin harjit. PLAN: 1. Blood cultures x2 stat. 2. Will request surgical culture both aerobic and anaerobic at time of surgical exploration. 3. Continue the patient on vancomycin. I will add Zosyn 3.375 grams IV piggyback q.8 hours. 4. Will follow up on the clinical condition and cultures to further adjust the medication if needed. Thank you for this consultation. We will follow the patient along with you.
[2016-04-25] MEDS: TOPIRAMATE 25 MG TAB PO SCH (21:15)
[2016-04-25] MEDS: ZOLPIDEM 10 MG TAB PO SCH (21:15)
--- NOTE | 2016-04-25 23:35 | MR ---
EXAMINATION TYPE: MR pancreas wo/w con DATE OF EXAM: 04/25/2016 7:36 PM COMPARISON: CT scan 04/17/2016 HISTORY: Biliary dilation evaluate for pancreatic mass CONTRAST: Standard multiplanar, multisequence MRI departmental protocol utilizing 12 mL intravenous MultiHance gadolinium contrast. FINDINGS: There is a dilated redundant common bile duct. Common bile duct measures up to 1.7 cm. Ther e is also dilation of the intrahepatic bile ducts. I see no filling defect. There is no evidence of a pancreatic mass. The distal common bile duct shows no filling defect. There is no evidence of a panc reatic mass. The pancreatic duct is slightly ectatic and measures up to 4 mm. There is no focal liver defect. There is no sign of ascites. There is no sign of pleural effusion. Spleen appears normal. Ki dneys have normal size and contour without evidence of hydronephrosis. I see no pathologic enhancemen t. There is no sign of retroperitoneal adenopathy. IMPRESSION: Dilated biliary tree extending down to the distal common bile duct. This could relate to a stricture. No common duct stone identified. No evidence of a pancreatic mass. Minimal ectasia of the pancreatic duct. No focal liver defect. There are some postsurgical changes with apparent scar tissue on the midline anterior abdominal wall that are unchanged compared to the last CT scan.
[2016-04-26] MEDS: KETOROLAC 30 MG/ML 1 ML VIAL IVP PRN ×4 (00:12→22:44)
[2016-04-26] MEDS: PIPERACILLIN-TAZOBACTAM 3.375 GM in DEXTROSE/WATER 1 50ML.BAG IVPB SCH ×3 (00:13→17:20)
[2016-04-26] MEDS: HYDROcodone/APAP 5-325MG 1 EACH TAB PO PRN ×5 (00:13→22:43)
[2016-04-26] MEDS: ZOLPIDEM 10 MG TAB PO SCH (01:46)
[2016-04-26] MEDS: ALPRAZolam 0.5 MG TAB PO PRN ×3 (05:57→18:24)
[2016-04-26] MEDS: SUMAtriptan SUCCINATE 50 MG TAB PO PRN (05:57)
[2016-04-26] MEDS ORDERED: hydrALAZINE HCL 20 MG/ML 1 ML VIAL IVP PRN (08:10)
[2016-04-26 08:39] LABS: ALT 30 U/L (9-52); AST 13 U/L (14-36); Alkaline Phosphatase 142 U/L (38-126); Anion Gap 10 mmol/L; Blood Urea Nitrogen 7 mg/dL (7-17); Calcium 8.8 mg/dL (8.4-10.2); Carbon Dioxide 23 mmol/L (22-30); Chloride 90 mmol/L (98-107); Glucose 88 mg/dL (74-99); Non-African American GFR(MDRD) >60 (>60 ml/min/1.73 sqM); Potassium 5.4 mmol/L (3.5-5.1); Sodium 123 mmol/L (137-145); Total Bilirubin 0.4 mg/dL (0.2-1.3); Total Protein 6.4 g/dL (6.3-8.2)
[2016-04-26] MEDS: VANCOMYCIN 1,000 MG in SODIUM CHLORIDE 0.9% 250 ML IVPB SCH (08:59)
[2016-04-26] MEDS: carBAMazepine 200 MG TAB PO SCH (09:00)
[2016-04-26] MEDS: ESTRADIOL 1 MG TAB PO SCH (09:01)
[2016-04-26] MEDS: DULoxetine HCL 60 MG CAPSULE.DR PO SCH (09:01)
[2016-04-26] MEDS: ENOXAPARIN 40 MG/0.4 ML SYRINGE SQ SCH ×2 (10:37→11:15)
[2016-04-26] MEDS ORDERED: IV FLUID CONTINUATION 1,000 ML IV ONE (13:32)
[2016-04-26] MEDS ORDERED: ONDANSETRON 4 MG/2 ML VIAL IVP ONE (13:56)
[2016-04-26] MEDS ORDERED: DEXAMETHASONE SOD PHOSPHATE 10 MG/ML 1 ML VIAL IV ONE (13:57)
[2016-04-26] MEDS ORDERED: fentaNYL (PF) 50 MCG/ML 2 ML AMP IV ONE (13:58)
[2016-04-26] MEDS ORDERED: MIDAZOLAM 2 MG/2 ML VIAL IVP ONE (13:58)
[2016-04-26] MEDS ORDERED: MIDAZOLAM 2 MG/2 ML VIAL ONE (14:23)
[2016-04-26] MEDS ORDERED: KETAMINE 10 MG/ML 20 ML VIAL ONE (14:23)
[2016-04-26] MEDS ORDERED: fentaNYL (PF) 50 MCG/ML 2 ML AMP ONE (14:23)
[2016-04-26] MEDS ORDERED: PROPOFOL 10 MG/ML 20 ML VIAL IV ONE (14:23)
[2016-04-26] MEDS ORDERED: HYDROmorphone (PF) 1 MG/ML ONE (14:23)
[2016-04-26] MEDS ORDERED: BUPIVACAIN-EPI 0.25%-1:200,000 30 ML VIAL SQ ONE (14:37)
[2016-04-26] MEDS ORDERED: NALOXONE 0.4 MG/ML 1 ML VIAL IV PRN (15:15)
--- NOTE | 2016-04-26 15:21 | P.PCN ---
Date of Procedure: 04/26/16 Procedure(s) Performed: PREOPERATIVE DIAGNOSIS: Abdominal wall hematoma POSTOPERATIVE DIAGNOSIS: Same PROCEDURE: Incision and drainage abdominal wall hematoma with control of bleeding SURGEON: Daniel EBL: See anesthesia record ANESTHESIA: mac COMPLICATIONS: None OPERATIVE PROCEDURE: Patient was kept on the stretcher for the procedure. She was sedated. She should've that time. The abdomen was prepped and draped. The lower midline incision was re-incised where the hematoma was noted. Dissection through the subcutaneous fat took place until a hematoma was identified. There did appear to be some separation of the fascia. Through this there was some visible clot that was evacuated using blunt dissection. As I was doing that I was able to visualize acute active bleeding from a rectus muscle blood vessel. This was just to the left of midline. This was felt to match the blush seen on the CAT scan from April 17. This was ligated at this time using [id number] 0 Vicryl sutures proximal and distal to this blood vessel that was running vertically. No further bleeding was seen at that time. Deep cultures were taken. The wound was irrigated with saline. The wound was then packed with Alejandro gauze. Penetration beyond the peritoneum did not take place. The tissues were very indurated and it was not felt that additional closure of the fascia would be of any benefit at this time. DISPOSITION: Stable to recovery room
--- NOTE | 2016-04-26 16:26 | PN ---
Patient is admitted for hematoma and patient has gaping of surgical wound from her sigmoid colectomy. Patient is going for incision and drainage for possible hematoma and not sure whether patient has an infection around the surgical site area. Because of which Infectious Disease evaluated the patient. Wound cultures are pending. The patient is on Zosyn and vancomycin as per Infectious Disease recommendations. Patient is hyponatremic. Patient is on carbamazepine, which can cause hyponatremia. Patient is known to have SAIDH and IV fluids were discontinued yesterday. In spite of which, patient became more hyponatremic with 123 sodium. Because of which I consulted Nephrology. We are obtaining urinary random sodium, urinary random creatinine, urine osmolarity and serum osmolarity. REVIEW OF SYSTEMS: CARDIOVASCULAR: No chest pain, no orthopnea, no PND, no palpitations. PULMONARY: Denied any shortness of breath. No cough or hemoptysis. GASTROINTESTINAL: Continued severe abdominal pain. NEUROLOGIC: No headaches, no weakness, no numbness. Medications were reviewed. PHYSICAL EXAMINATION: VITAL SIGNS: 97.7, pulse of 80, respiratory rate of 16, blood pressure is 161/97, saturating at 97% on room air. GENERAL: The patient is alert and oriented x3, not in any acute distress. Well developed, well nourished. HEENT: Pupils are round and equally reacting to light. EOMI. No scleral icterus. No conjunctival pallor. Normocephalic, atraumatic. No pharyngeal erythema. No thyromegaly. CARDIOVASCULAR: S1 and S2 present. No murmurs, rubs, or gallops. PULMONARY: Chest is clear to auscultation, no wheezing or crackles. ABDOMEN: Abdominal surgical site area, no significant change compared to yesterday. MUSCULOSKELETAL: No joint swelling or deformity. EXTREMITIES: No cyanosis, clubbing, or pedal edema. NEUROLOGICAL: Gross neurological examination did not reveal any focal deficits. SKIN: No rashes. ASSESSMENT AND PLAN: 1. Possible infection of the surgical site area with gaping of the surgical site area along with hematoma next to the surgical incision. 2. Hyponatremia due to above-mentioned reasons, probably due to SIADH with probable contribution from some of her medications including carbamazepine and hydroxyzine was discontinued as some of the antihistamines can cause hyponatremia. 3. History of sigmoid colitis status post sigmoid colectomy. 4. Mildly elevated blood pressures due to pain, which pain needs to be controlled rather than using p.r.n. antihypertensives. I do not recommend to use any p.o. or IV antihypertensives or p.r.n. antihypertensives. 5. Anxiety disorder. 6. The patient is going for incision and drainage today. Continue with present pain medication regimen. 7. Depression. 8. Migraines, for which patient is on sumatriptan and carbamazepine. I will leave it alone for now unless nephrology recommends to discontinue carbamazepine.
[2016-04-26] MEDS ORDERED: ONDANSETRON 4 MG/2 ML VIAL IVP PRN (17:14)
[2016-04-26] MEDS: amLODIPine 10 MG TAB PO SCH (17:14)
--- NOTE | 2016-04-26 18:03 | PN ---
DATE OF SERVICE: 04/26/2016 REASON FOR FOLLOW-UP: Abdominal wall abscess or hematoma. INTERVAL HISTORY: The patient is afebrile. He was taken to the OR, she is status post I&D of the area. She is noted to have bleeding vessel that has been stitched. The patient denies having any chest pain or shortness of breath or cough and no diarrhea. On examination, blood pressure is 159/100 with a pulse of 89. Temperature 97, she is 97% on room air. General description is a middle-age female lying in bed in no distress. RESPIRATORY SYSTEM: Unlabored breathing. Clear to auscultation anteriorly. HEART: S1, S2. Regular rate and rhythm. ABDOMEN: Soft, no tenderness. Extremities no edema of feet. LABS: Hemoglobin is 11, white count 9.0. BUN of 7, creatinine 0.59. Cultures obtained yesterday have been negative so far. DIAGNOSTIC IMPRESSION AND PLAN: Patient with abdominal pain and swelling with a question of possible abscess with infected seroma more likely a hematoma status post drainage, waiting for the cultures to finalize. Continue with supportive care.
[2016-04-26] MEDS ORDERED: VANCOMYCIN TROUGH DUE 1 EACH MISC MISCELLANE ONE (20:00)
[2016-04-26] MEDS: PROMETHAZINE INJ 12.5 MG in SODIUM CHLORIDE 0.9% 50 ML IVPB PRN (22:50)
[2016-04-27] MEDS: carBAMazepine 200 MG TAB PO SCH ×3 (00:13→20:55)
[2016-04-27] MEDS: TOPIRAMATE 25 MG TAB PO SCH ×2 (00:13→20:55)
[2016-04-27] MEDS: ALPRAZolam 0.5 MG TAB PO PRN ×4 (00:13→22:06)
[2016-04-27] MEDS: SODIUM CHLORIDE 0.9% 1,000 ML IV SCH ×3 (00:14→23:24)
[2016-04-27] MEDS: PIPERACILLIN-TAZOBACTAM 3.375 GM in DEXTROSE/WATER 1 50ML.BAG IVPB SCH ×4 (00:14→23:45)
[2016-04-27] MEDS: ZOLPIDEM 10 MG TAB PO SCH ×2 (00:48→23:24)
[2016-04-27] MEDS: HYDROcodone/APAP 5-325MG 1 EACH TAB PO PRN ×3 (04:44→20:33)
[2016-04-27] MEDS: PROMETHAZINE INJ 12.5 MG in SODIUM CHLORIDE 0.9% 50 ML IVPB PRN ×2 (04:45→22:06)
[2016-04-27] MEDS: SUMAtriptan SUCCINATE 50 MG TAB PO PRN (04:51)
[2016-04-27] MEDS: ENOXAPARIN 40 MG/0.4 ML SYRINGE SQ SCH (08:28)
[2016-04-27] MEDS: ESTRADIOL 1 MG TAB PO SCH (08:28)
[2016-04-27] MEDS: DULoxetine HCL 60 MG CAPSULE.DR PO SCH (08:28)
[2016-04-27 09:53] LABS: CH 31.1; CHCM 33.8; HCT 40.2 % (34.0-46.0); MCHC 32.5 g/dL (31.0-37.0); MCV 92.4 fL (80.0-100.0); Mean Platelet Volume 7.2; RBC 4.35 m/uL (3.80-5.40); RBC Fragment Flag Slight; RDW 13.7 % (11.5-15.5)
[2016-04-27 10:07] LABS: Anion Gap 17 mmol/L; Blood Urea Nitrogen 4 mg/dL (7-17); Calcium 9.8 mg/dL (8.4-10.2); Carbon Dioxide 21 mmol/L (22-30); Chloride 83 mmol/L (98-107); Glucose 160 mg/dL (74-99); Non-African American GFR(MDRD) >60 (>60 ml/min/1.73 sqM); Potassium 4.9 mmol/L (3.5-5.1); Sodium 121 mmol/L (137-145)
--- NOTE | 2016-04-27 10:19 | P.PN ---
Progress Note - Text The patient is stable awake alert. No nausea or vomiting. Had drainage of abdominal wall abscess with ligation of bleeding vessel. On examination she is awake alert vitals are stable. Dressings are dry. No evidence of any active bleeding. Labs are noted and unremarkable. Her graft impression stable postoperative course. Recommendation continue regular diet close monitoring. Wound care.
[2016-04-27] MEDS ORDERED: FUROSEMIDE 10 MG/ML 2 ML VIAL IV ONE ×2 (11:50→20:28)
--- NOTE | 2016-04-27 11:50 | P.NPCON ---
History of Present Illness - Reason for Consult hyponatremia - History of Present Illness Reason for consultation: Hyponatremia History of present illness: Patient is a 55-year-old female seen in renal consultation for hyponatremia. Patient developed a volvulus recently underwent right colectomy. Her surgical site was swollen and she subsequently underwent incision and drainage of the abdominal wall hematoma on April 26. Her sodium level has been progressively dropping. Sodium level was 134 on April 24 and has been progressively decreasing over the last few days and is down to 121 today. Her appetite remains poor. Does not feel hungry. Did have an episode of emesis yesterday. Denies any diarrhea. Does admit to nausea. Also Mr. pain at the surgical site. Denies chest pain or shortness of breath. Admits to good urine output. Vital signs are stable. General: The patient appeared well nourished and normally developed. HEENT: Head exam is unremarkable. Neck is without jugular venous distension. LUNGS: Lungs are clear to auscultation and percussion. Breath sounds decreased. HEART: Rate and Rhythm are regular. First and second heart sounds normal. No murmurs, rubs or gallops. ABDOMEN: Abdominal exam reveals normal bowel sounds. Non-tender and non- distended. No evidence of peritonitis. EXTREMITITES: No clubbing, cyanosis, or edema. Past Medical History Additional Past Medical History / Comment(s): anxiety, chronic back pain, ulcers , chronic samuel-bladder only holds 100ml per pt."HAD PNE VACCINE 2 YEARS AGO , NOT SURE OF DATE" DR BEKAH ALVAREZ UNABLE TO VERIFY DATE AT TIME OF ADMIT. History of Any Multi-Drug Resistant Organisms: None Reported Past Surgical History: Bariatric Surgery, Bladder Surgery, Cholecystectomy, Hysterectomy Additional Past Surgical History / Comment(s): bladder suspension, gastric bypass, colon volvulus had exporatory lap w/lysis of adhesions and rt colectomy Past Anesthesia/Blood Transfusion Reactions: No Reported Reaction Past Psychological History: Anxiety, Bipolar Smoking Status: Former smoker Past Alcohol Use History: None Reported Additional Past Alcohol Use History / Comment(s): started smoking at age 16(1976 ) smoked 2 ppd, quit 1998 Past Drug Use History: None Reported - Past Family History Mother Additional Family Medical History / Comment(s): no history Father Additional Family Medical History / Comment(s): from alcoholism Medications and Allergies Home Medications Medication Instructions Recorded Confirmed Type ALPRAZolam [Xanax] 1 mg PO QID PRN 03/21/16 04/24/16 History Albuterol Inhaler [Ventolin Hfa 2 puff INHALATION RT-Q4H PRN 03/21/16 04/24/16 History Inhaler] DULoxetine HCL [Cymbalta] 60 mg PO DAILY 03/21/16 04/24/16 History Fluticasone Nasal [place] [Flonase 1 spr EA NOSTRIL DAILY PRN 03/21/16 04/24/16 History Nasal [place]] HYDROcodone/APAP 10-325MG [[place] 1 tab PO Q6H PRN 03/21/16 04/24/16 History 10-325] Ibuprofen [Motrin] 800 mg PO TID PRN 03/21/16 04/24/16 History Promethazine [Phenergan] 25 mg PO HS PRN 03/21/16 04/24/16 History SUMAtriptan SUCCINATE [Imitrex] 100 mg PO DAILY PRN 03/21/16 04/24/16 History Topiramate [Topamax] 25 mg PO HS 03/21/16 04/24/16 History carBAMazepine [TEGretol] 400 mg PO Q12H 03/21/16 04/24/16 History hydrOXYzine HCL [Atarax] 50 mg PO TID PRN 03/21/16 04/24/16 History Bisacodyl [Dulcolax] 10 mg PO DAILY PRN 04/17/16 04/24/16 History Estradiol [Estrace] 1 mg PO DAILY 04/17/16 04/24/16 History Zolpidem [Ambien] 10 mg PO HS 04/24/16 04/24/16 History Allergies Allergy/AdvReac Type Severity Reaction Status Date / Time No Known Allergies Allergy Verified 04/24/16 20:04 Physical Exam Vitals: Vital Signs Temp Pulse Resp BP BP Pulse Ox 04/27/16 08:36 98.1 F 93 16 151/95 92 L 04/26/16 23:30 80 17 04/26/16 19:22 97 F L 80 17 169/84 96 04/26/16 18:04 96.7 F L 68 16 184/108 96 04/26/16 17:11 97 F L 100 14 196/126 95 04/26/16 16:13 97 F L 89 14 159/105 97 04/26/16 15:45 83 16 140/85 95 04/26/16 15:29 93 16 137/78 94 L 04/26/16 15:14 98.7 F 102 H 16 142/87 95 04/26/16 13:34 97.7 F 80 16 180/99 97 Intake and Output 04/26/16 04/27/16 04/27/16 22:59 06:59 14:59 Intake Total 100 1150 480 Output Total 3690 900 Balance -3590 250 480 Intake: IV 100 50 Piperacillin-Tazobactam 3 50 .375 gm In Dextrose/Water 1 50ml.bag @ 12.5 mls/hr IVPB Q8HR [facility] Rx#: [id number] Intake, IV Titration 600 Amount Promethazine Inj 12.5 mg 100 In Sodium Chloride 0.9% 50 ml @ 200 mls/hr IVPB Q6HR PRN Rx#:[id number] Sodium Chloride 0.9% 1, 500 000 ml @ 75 mls/hr IV . [id number] [facility] Rx#:[id number] Oral 500 480 Output: Urine 3650 900 Estimated Blood Loss 40 Other: Voiding Method Indwelling Catheter Indwelling Catheter Indwelling Catheter Results - Lab Results Most recent lab results Calcium 9.8 mg/dL (8.4-10.2) 04/27/16 08:51 Phosphorus 4.2 mg/dL (2.5-4.5) 04/24/16 20:33 04/27/16 08:51 04/27/16 08:51 Assessment and Plan Plan: Assessment: #1. Hyponatremia. Appears euvolemic in nature. Sodium level down to 121 today. She's been on normal saline at 75 mL an hour overnight. Urine osmolalities to 36 with a urine sodium of 98. Her BUN is 4. Etiology is still and toast diet along with a component of SIADH related to pain and nausea. Additionally she is on Toradol for pain as well as Tegretol which can cause hyponatremia. #2. Status post incision and drainage of abdominal wall hematoma on April 26. Plan: Hep-Lock IV fluids. Maintain 1.2 L fluid restriction. Add ensure with meals. Lasix 20 mg IV once today. Repeat sodium level at 6 PM today. Thank you for the consultation. I will continue to follow the patient with you during her hospital stay.
[2016-04-27] MEDS: HYDROmorphone 1 MG/ML 1 ML SYRINGE IVP PRN ×2 (11:52→16:28)
--- NOTE | 2016-04-27 12:16 | CT ---
EXAMINATION TYPE: CT brain wo con DATE OF EXAM: 04/27/2016 12:07 PM COMPARISON: NONE HISTORY: dizziness post op abdominal surgery yesterday. CT DLP: 981.7 mGycm Automated exposure control for dose reduction was used. FINDINGS: There is no acute intracranial hemorrhage, mass effect, or midline shift identified. There is mild generalized degenerative change. Faint periventricular low attenuation is nonspecific. IMPRESSION: 1. No acute intracranial hemorrhage, mass effect, or midline shift is seen. 2. Nonspecific white matter changes likely on the basis of remote microvascular ischemia.
[2016-04-27 14:58] LABS: Potassium 4.6 mmol/L (3.5-5.1)
--- NOTE | 2016-04-27 16:55 | US ---
EXAMINATION TYPE: US carotid duplex BILAT DATE OF EXAM: 04/27/2016 4:17 PM COMPARISON: No previous CLINICAL HISTORY: blurred vision, dizziness. EXAM MEASUREMENTS: RIGHT: Peak Systolic Velocity (PSV) cm/sec ----- Right CCA: 60.7 ----- Right ICA: 59.1 ----- Right ECA: 69.5 ICA/CCA ratio: 1.0 RIGHT: End Diastole cm/sec ----- Right CCA: 18.0 ----- Right ICA: 24.2 ----- Right ECA: 16.8 LEFT: Peak Systolic Velocity (PSV) cm/sec ----- Left CCA: 65.5 ----- Left ICA: 62.5 ----- Left ECA: 56.9 ICA/CCA ratio: 1.0 LEFT: End Diastole cm/sec ----- Left CCA: 21.5 ----- Left ICA: 25.8 ----- Left ECA: 16.8 VERTEBRALS (direction of flow): Right Vertebral: Antegrade Left Vertebral: Antegrade TECHNOLOGIST IMPRESSION: No elevated velocities, no significant stenosis IMPRESSION: There is antegrade flow in the vertebral arteries. The images and measurements suggest c lose to 0% stenosis in both internal carotid arteries. Criteria for Assigning % of Stenosis / Diameter reduction (Estimation based on the indirect measurements of the internal carotid artery velocities (ICA PSV). 1. Normal (no stenosis)=ICA PSV < 125 cm/s: ratio < 2.0: ICA EDV<40 cm/s. 2. Less than 50% stenosis=ICA PSV < 125 cm/s: ratio < 2.0: ICA EDV<40 cm/s. 3. 50 to 69% stenosis=ICA PSV of 125 to 230 cm/s: ration 2.0 ? 4.0: ICA EDV 40-100 cm/s. 4. Greater than 70% stenosis to near occlusion= ICA PSV > 230 cm/s: ratio > 4.0: ICA EDV > 100 cm/s. 5. Near occlusion= ICA PSV velocities may be low or undetectable: variable ratio and ICA EDV. 6. Total occlusion=unable to detect flow.
[2016-04-27] MEDS ORDERED: SODIUM CHLORIDE TAB 1 GM TAB PO STA (20:27)
[2016-04-27] MEDS: amLODIPine 10 MG TAB PO SCH (20:55)
--- NOTE | 2016-04-27 21:08 | PN ---
DATE OF SERVICE: 04/27/2016 This 55-year-old woman who was admitted with possible infection of surgical site with surgical wound also had hematoma also is being closely monitored. The patient also had hyponatremia. Dr. Palacios is following the patient closely. The patient also had some confusion. CT scan of the brain showed nonspecific white matter changes. Otherwise, a carotid Doppler was also done, which showed no acute changes. Patient is complaining of some diplopia at this time. The patient is receiving Dilaudid for pain management. PAST MEDICAL HISTORY: Reviewed. REVIEW OF SYSTEMS: CARDIOVASCULAR: No angina or palpitations. RESPIRATORY: As mentioned earlier. GI: As mentioned earlier. : No dysuria. Nervous: As mentioned earlier. The current medications are reviewed and include: 1. [place] 5 mg q.4 p.r.n. 3. Xanax 1 mg p.o. b.i.d. 4. Dulcolax 10 mg. 5. Tegretol. 6. Colace. 7. Cymbalta 60 mg. 8. Lovenox 40 mg subcu daily. 10. Dilaudid. 11. Toradol. 12. Melatonin 3 mg. 14. Zosyn IV. 15. Imitrex. 16. Topamax. 17. Ambien. Patient is alert and oriented x3. Pulse 87, blood pressure 140/94, respirations 18, temperature 97.8, pulse ox 97% on room air. HEENT: Conjunctivae normal. Oral mucosa moist. NECK: No jugular venous distention. No carotid bruit. No lymph node enlargement. CARDIOVASCULAR: S1, S2 muffled. RESPIRATORY: Breath sounds diminished at the bases. A few scattered rhonchi, no crackles. ABDOMEN: Soft, minimal tenderness. LEGS: No edema. No swelling. CENTRAL NERVOUS SYSTEM: No focal deficits. LABS: Sodium is 119. Otherwise, platelets ntd. Random sodium is 98. ASSESSMENT: 1. Abdominal wall abscess and infected hematoma secondary to recent surgery before right colonic wall also related to internal hernia that right colectomy. 2. Diplopia difficulty vision, possible acute transient ischemic attack. 3. Increased platelets. 4. Hyponatremia, possibly syndrome of inappropriate antidiuretic hormone. 5. Increased random blood sugar. 6. History of anxiety. 7. Degenerative joint disease, chronic back pain. 8. Chronic Storey catheter. 9. History of bariatric surgery. 10. History of bladder surgery. 11. History of hysterectomy. 12. Anxiety, bipolar. 13. History of nicotine dependence. 14. FULL CODE with instructions. RECOMMENDATIONS AND DISCUSSION: In this 55 -year-old woman who presented with multiple complex medical issues, we will monitor the patient closely. Continue the current medications. Continue symptomatic treatment. I would recommend neurochecks. Neurovascular work-up and as well as neurology evaluation because of new symptoms about regarding the vision. The wound cultures showed gram negative bacilli. Final ID is pending at this time. Recommend to continue the recurrent course of antibiotics. I would also recommend continued repeat labs and continue to monitor. Once again the prognosis extremely guarded because of multiple complex medical issues. Further recommendations to follow. See orders for further details. Closely follow with the surgical team. MADISYN
[2016-04-27 22:12] VITALS: RESP 16
--- NOTE | 2016-04-28 00:39 | P.CNNES ---
History of Present Illness Consult date: 04/27/16 Requesting physician: Bert Pantoja Reason for Consult: dizziness blurred vision Chief complaint: dizziness and blurred vision History of Present Illness: Patient is a 55-year-old female pain consult on by neurology for dizziness and blurred vision. Patient was transferred from [facility] due to an abdominal wound was severe pain and fever. Patient is also being evaluated inpatient for a solid heart mass, pancreas mass. Neurology is being requested to evaluate the patient's dizziness and blurred vision. Patient states she has approximately a 20 year plus history of migraines. Migraines occur approximately 2 times per week. States that she has had a daily baseline headache. Migraines are predominantly posterior to anterior bilaterally with a squeezing pressure-type pain especially in the frontal area. Patient has tried Tegretol in the past to manage her headaches. She also uses Imitrex as an abortive medication. Patient has not had a diagnostic workup for migraines in the last 10 years. Patient also states that she is taking Celexa and the headaches became more persistent on a daily basis since the initiation of Celexa several years ago while residing in [place]. She states that [facility] continued her Celexa upon moving to [place] and she expressed these concerns with them however no medication adjustments have been made. Patient did have a CT of the brain which noted no acute process but found microvascular disease and ischemia. On initial contact, the patient was supine in bed, resting comfortably, in no acute distress. Patient is alert and oriented 3. Review of Systems all systems not previously noted in HPI or negative. Past Medical History Past Medical History: No Reported History Additional Past Medical History / Comment(s): anxiety, chronic back pain, ulcers , chronic samuel-bladder only holds 100ml per pt."HAD PNE VACCINE 2 YEARS AGO , NOT SURE OF DATE" DR BEKAH ALVAREZ UNABLE TO VERIFY DATE AT TIME OF ADMIT. History of Any Multi-Drug Resistant Organisms: None Reported Past Surgical History: Bariatric Surgery, Bladder Surgery, Cholecystectomy, Hysterectomy Additional Past Surgical History / Comment(s): bladder suspension, gastric bypass, colon volvulus had exporatory lap w/lysis of adhesions and rt colectomy Past Anesthesia/Blood Transfusion Reactions: No Reported Reaction Past Psychological History: Anxiety, Bipolar Smoking Status: Former smoker Past Alcohol Use History: None Reported Additional Past Alcohol Use History / Comment(s): started smoking at age 16(1976 ) smoked 2 ppd, quit 1998 Past Drug Use History: None Reported - Past Family History Mother Family Medical History: No Reported History Additional Family Medical History / Comment(s): no history Father Family Medical History: No Reported History Additional Family Medical History / Comment(s): from alcoholism Medications and Allergies Home Medications Medication Instructions Recorded Confirmed Type ALPRAZolam [Xanax] 1 mg PO QID PRN 03/21/16 04/24/16 History Albuterol Inhaler [Ventolin Hfa 2 puff INHALATION RT-Q4H PRN 03/21/16 04/24/16 History Inhaler] DULoxetine HCL [Cymbalta] 60 mg PO DAILY 03/21/16 04/24/16 History Fluticasone Nasal [place] [Flonase 1 spr EA NOSTRIL DAILY PRN 03/21/16 04/24/16 History Nasal [place]] HYDROcodone/APAP 10-325MG [[place] 1 tab PO Q6H PRN 03/21/16 04/24/16 History 10-325] Ibuprofen [Motrin] 800 mg PO TID PRN 03/21/16 04/24/16 History Promethazine [Phenergan] 25 mg PO HS PRN 03/21/16 04/24/16 History SUMAtriptan SUCCINATE [Imitrex] 100 mg PO DAILY PRN 03/21/16 04/24/16 History Topiramate [Topamax] 25 mg PO HS 03/21/16 04/24/16 History carBAMazepine [TEGretol] 400 mg PO Q12H 03/21/16 04/24/16 History hydrOXYzine HCL [Atarax] 50 mg PO TID PRN 03/21/16 04/24/16 History Bisacodyl [Dulcolax] 10 mg PO DAILY PRN 04/17/16 04/24/16 History Estradiol [Estrace] 1 mg PO DAILY 04/17/16 04/24/16 History Zolpidem [Ambien] 10 mg PO HS 04/24/16 04/24/16 History Allergies Allergy/AdvReac Type Severity Reaction Status Date / Time No Known Allergies Allergy Verified 04/24/16 20:04 Physical Examination - Vital Signs Vital Signs: Vital Signs Temp Pulse Resp BP Pulse Ox 04/27/16 22:05 96.3 F L 82 16 131/74 99 04/27/16 16:00 87 18 04/27/16 14:45 97.8 F 87 18 144/94 96 04/27/16 08:36 98.1 F 93 16 151/95 92 L Intake and Output 04/27/16 04/27/16 04/28/16 14:59 22:59 06:59 Intake Total 1040 Output Total 900 Balance 140 Intake: Oral 1040 Output: Urine 900 Uretheral (Samuel) 900 Other: Voiding Method Indwelling Catheter Indwelling Catheter Constitutional: AOx3, cooperative Head: NC/AT Throat: Supple, no masses Respiratory: No increased work of breathing Cardiac: Regular rate and Rhythm GI: surgical site is open gaping wound. Patient has a mass noted. Musculoskeletal: strengths are equal bilaterally 5/5 in upper extremities, Lower extremity strengths are equal bilaterally at 5/5. Neurological: CN II-XII in tact, patient was AOx3, speech and language are normal, no unilateralizing weakness, no seizure activity note on physical exam. Sensation was normal. Integementary: no rash, no erythema Psychiatric: mood and affect appropriate Results - Laboratory Findings CBC and BMP: 04/27/16 08:51 04/27/16 18:58 Abnormal Lab Findings: Abnormal Labs 04/24/16 04/24/16 04/25/16 20:33 20:33 11:01 RBC 3.60 L Hgb 11.0 L Plt Count 781 H Eosinophils # 0.9 H Sodium 134 L 128 L Potassium 5.5 H 5.4 H Chloride 94 L Carbon Dioxide BUN Creatinine Glucose 132 H Osmolality AST Alkaline Phosphatase 149 H 149 H Albumin 3.4 L Ur Random Sodium 04/26/16 04/26/16 04/26/16 07:47 07:47 11:38 RBC Hgb Plt Count Eosinophils # Sodium 123 L Potassium 5.4 H Chloride 90 L Carbon Dioxide BUN Creatinine Glucose Osmolality 254 L AST 13 L Alkaline Phosphatase 142 H Albumin Ur Random Sodium 98 H 04/26/16 04/27/16 04/27/16 19:00 08:51 08:51 RBC Hgb Plt Count 945 H* Eosinophils # Sodium 122 L 121 L Potassium Chloride 83 L Carbon Dioxide 21 L BUN 4 L Creatinine 0.45 L Glucose 160 H Osmolality AST Alkaline Phosphatase Albumin Ur Random Sodium 04/27/16 04/27/16 14:14 18:58 RBC Hgb Plt Count Eosinophils # Sodium 119 L* 120 L* Potassium Chloride 83 L Carbon Dioxide 21 L BUN Creatinine Glucose Osmolality AST Alkaline Phosphatase Albumin Ur Random Sodium - Diagnostic Findings Additional findings: patient is hypokalemic. platelets are elevated at 945 Assessment and Plan (1) Migraine Narrative/Plan: patient does have a 20+ year history of migraine with daily headache. Migraines do occur approximately 1-2 times per week. On exam she has reproducible pain and greater occipital nerve palpation. Pain is bilateral from posterior to anterior. Pain becomes predominantly anterior and frontal as the headache progresses. Patient was using Tegretol in the past as her daily baseline prophylaxis medication and sumatriptan as her abortive medication. She states the Tegretol does not work and often contributed to electrolyte abnormalities. She states the sumatriptan did work intermittently when needed. Patient is no longer using Tegretol. Patient's blood pressure was most recently 130/84. Patient could potentially benefit from starting Calan 120 mg SR as her daily prophylaxis medication. She could continue the sumatriptan as her abortive medication. Since she has not had any diagnostic workup for migraine in greater than 10 years. I am going to request an EEG as well as an MRI of the brain without contrast at this time. my also going to request a carotid Doppler study at this time. ordered: Calan 120 mg SR, 1 tab, po, Qday EEG MRI Brain wo contrast Continue: Imitrex as abortive medication for migraine Neurology will continue to follow provide further recommendations and treatment as needed or warranted. I discussed the patient's pertinent medical information with Dr. Spivey. He agrees with the plan of care as implemented. Status: Acute
[2016-04-28] MEDS: ALPRAZolam 0.5 MG TAB PO PRN (06:11)
[2016-04-28] MEDS: HYDROcodone/APAP 5-325MG 1 EACH TAB PO PRN ×3 (06:11→20:25)
[2016-04-28 08:01] LABS: Anion Gap 12 mmol/L; Blood Urea Nitrogen 7 mg/dL (7-17); Carbon Dioxide 24 mmol/L (22-30); Chloride 88 mmol/L (98-107); Glucose 105 mg/dL (74-99); Non-African American GFR(MDRD) >60 (>60 ml/min/1.73 sqM); Sodium 124 mmol/L (137-145)
[2016-04-28 08:08] LABS: Basophils % (A) 1 %; CH 31.1; CHCM 34.4; Eosinophils # (A) 0.2 k/uL (0-0.7); Eosinophils % (A) 3 %; HCT 35.4 % (34.0-46.0); HGB 11.7 gm/dL (11.4-16.0); Luc # (Auto) 0.07; Luc % (Auto) 2; Lymphocytes # (A) 0.7 k/uL (1.0-4.8); Lymphocytes % (A) 15 %; MCH 30.1 pg (25.0-35.0); MCHC 33.2 g/dL (31.0-37.0); MCV 90.8 fL (80.0-100.0); Mean Platelet Volume 6.3; Monocytes # (A) 0.3 k/uL (0-1.0); Monocytes % (A) 6 %; Neutrophils # (A) 3.4 k/uL (1.3-7.7); Neutrophils % (A) 73 %; RDW 13.5 % (11.5-15.5); WBC 4.6 k/uL (3.8-10.6); WBC (Perox) 4.77
[2016-04-28] MEDS: HYDROmorphone 1 MG/ML 1 ML SYRINGE IVP PRN ×2 (08:34→17:57)
[2016-04-28] MEDS: SUMAtriptan SUCCINATE 50 MG TAB PO PRN (08:35)
[2016-04-28] MEDS: PIPERACILLIN-TAZOBACTAM 3.375 GM in DEXTROSE/WATER 1 50ML.BAG IVPB SCH ×2 (08:40→17:55)
[2016-04-28] MEDS: ESTRADIOL 1 MG TAB PO SCH (08:42)
[2016-04-28] MEDS: DULoxetine HCL 60 MG CAPSULE.DR PO SCH (08:42)
[2016-04-28] MEDS: VERAPAMIL SR 120 MG TABLET.ER PO SCH (08:42)
[2016-04-28] MEDS: ENOXAPARIN 40 MG/0.4 ML SYRINGE SQ SCH (08:42)
[2016-04-28] MEDS: carBAMazepine 200 MG TAB PO SCH ×2 (08:43→20:25)
--- NOTE | 2016-04-28 10:55 | P.PN ---
Subjective Principal diagnosis: Patient is seen in follow-up for hyponatremia. Sodium level is improving and is up to 124 today. She did receive 2 doses of Lasix yesterday. Her oral intake remains poor. Denies vomiting or diarrhea. Denies chest pain or shortness of breath. Vital signs are stable. General: The patient appeared well nourished and normally developed. HEENT: Head exam is unremarkable. Neck is without jugular venous distension. LUNGS: Lungs are clear to auscultation and percussion. Breath sounds decreased. HEART: Rate and Rhythm are regular. First and second heart sounds normal. No murmurs, rubs or gallops. ABDOMEN: Abdominal exam reveals normal bowel sounds. Non-tender and non- distended. No evidence of peritonitis. EXTREMITITES: No clubbing, cyanosis, or edema. Objective - Vital Signs Vital signs: Vital Signs Temp 97.6 F 04/28/16 08:24 Pulse 86 04/28/16 08:24 Resp 16 04/28/16 08:24 BP 137/92 04/28/16 08:24 Pulse Ox 96 04/28/16 08:24 Intake & Output 04/27/16 04/28/16 04/28/16 18:59 06:59 18:59 Intake Total 1040 540 Output Total 900 400 Balance 140 140 Intake: IV 100 Piperacillin-Tazobactam 3 100 .375 gm In Dextrose/Water 1 50ml.bag @ 12.5 mls/hr IVPB Q8HR [facility] Rx#: [id number] Intake, IV Titration 110 Amount Promethazine Inj 12.5 mg 100 In Sodium Chloride 0.9% 50 ml @ 200 mls/hr IVPB Q6HR PRN Rx#:[id number] Sodium Chloride 0.9% 1, 10 000 ml @ 75 mls/hr IV . [id number] [facility] Rx#:[id number] Oral 1040 330 Output: Urine 900 400 Uretheral (Storey) 900 400 Other: Voiding Method Indwelling Catheter Indwelling Catheter - Labs CBC & Chem 7: 04/28/16 07:33 04/28/16 07:33 Labs: Abnormal Lab Results - Last 24 Hours (Table) 04/27/16 04/27/16 04/28/16 Range/Units 14:14 18:58 07:33 Plt Count (150-450) k/uL Lymphocytes # (1.0-4.8) k/uL Sodium 119 L* 120 L* 124 L (137-145) mmol/L Chloride 83 L 88 L (98-107) mmol/L Carbon Dioxide 21 L (22-30) mmol/L Creatinine 0.50 L (0.52-1.04) mg/dL Glucose 105 H (74-99) mg/dL 04/28/16 Range/Units 07:33 Plt Count 766 H (150-450) k/uL Lymphocytes # 0.7 L (1.0-4.8) k/uL Sodium (137-145) mmol/L Chloride (98-107) mmol/L Carbon Dioxide (22-30) mmol/L Creatinine (0.52-1.04) mg/dL Glucose (74-99) mg/dL Microbiology - Last 24 Hours (Table) 04/25/16 14:41 Blood Culture - Preliminary Blood No Growth after 48 hours 04/25/16 13:51 Blood Culture - Preliminary Blood No Growth after 48 hours 04/25/16 11:40 Anaerobic Culture - Preliminary Abdomen 04/25/16 11:40 Gram Stain - Final Abdomen Wound Culture - Final 04/26/16 12:00 Gram Stain - Preliminary Abdomen Wound Culture - Preliminary Gram Neg Bacilli Assessment and Plan Plan: Assessment: #1. Hyponatremia. Appears euvolemic in nature. Sodium level improved to 124 today. Urine osmolalities to 236 with a urine sodium of 98. Her BUN was as low as 4. Etiology is tea and toast diet along with a component of SIADH related to pain and nausea. Additionally she is on Toradol for pain as well as Tegretol which can cause hyponatremia. #2. Status post incision and drainage of abdominal wall hematoma on April 26. Plan: Hep-Lock IV fluids. Maintain 1.2 L fluid restriction. Maintain ensure with meals. Repeat sodium level at 6 PM today.
[2016-04-28] MEDS: PROMETHAZINE INJ 12.5 MG in SODIUM CHLORIDE 0.9% 50 ML IVPB PRN ×2 (11:11→12:49)
[2016-04-28] MEDS: SODIUM CHLORIDE 0.9% 1,000 ML IV SCH (11:12)
--- NOTE | 2016-04-28 16:16 | P.PN ---
Progress Note - Text Patient is a stable. She is awake alert. Cheerful. In no distress. Tolerating a diet. Her graft on examination she is afebrile. Vitals are stable. Abdomen is soft. Packing show some serosanguineous fluid. No active bleeding. No pus or purulence noted. Impression stable status post drainage after abdominal wall hematoma. Cultures are noted with E. coli and VRE. Infectious disease is on the case. Continued local wound care.
[2016-04-28] MEDS ORDERED: FLUCONAZOLE 150 MG TAB PO STA (18:01)
[2016-04-28] MEDS: TOPIRAMATE 25 MG TAB PO SCH (20:25)
[2016-04-28] MEDS: amLODIPine 10 MG TAB PO SCH (20:25)
--- NOTE | 2016-04-28 22:25 | P.PN ---
Subjective Principal diagnosis: headache, blurred vision, dizziness INTERVAL UPDATE: The patient is a 55-year-old female being followed by neurology for dizziness and blurred vision. Patient was transferred from [facility] due to an abdominal wound. Patient is also being evaluated inpatient for a solid heart mask, pancreas mass. Neurology is being requested to evaluate the patient's dizziness and blurred vision and provide further monitoring and treatment. Patient states she has approximately a 20+ year history of migraines. Migraines occur approximately 2 times per week she states that she has a daily baseline headache. Migraines are predominately posterior to anterior bilaterally with a squeezing pressure-type pain especially in the frontal area. Patient has tried Tegretol in the past to manage her headaches which she states is unsuccessful. She has also tried Topamax which is also unsuccessful but she has continued the use. She also uses Imitrex as an abortive medication. When questioned regarding the lack of effectiveness of Tegretol and Topamax but continued use, the patient states that she has moved from [place] to [place] to [place] and in the process different providers have added multiple medications but have failed to remove her previous medications or wean medications. As indicated yesterday, the patient has not had a diagnostic workup for migraines in greater than 10 years. Yesterday she indicated she was taking Celexa and that her headaches became more persistent on a daily basis since initiation of Celexa several years ago while residing in [place], however this is inconsistent with her medication list. Patient did have a CT of the brain which noted no acute process but found microvascular disease. On initial contact, the patient was supine in bed, resting comfortably, in no acute distress. Patient is alert and oriented 3. Patient did have Calan 120 mg SR added to her medication regimen but it was started today and the patient could not determine any effectiveness at this time. I discussed with her that I would discontinue her Topamax. We also did discuss that her Tegretol use may also be contributing to hyponatremia which could cause increased headache. As previously noted, the patient states that the Tegretol is ineffective but it has been in use for a prolonged period of time and would require weaning. Objective - Vital Signs Vital signs: Vital Signs Temp 96.3 F L 04/28/16 21:24 Pulse 88 04/28/16 21:24 Resp 16 04/28/16 21:24 BP 105/64 04/28/16 21:24 Pulse Ox 95 04/28/16 21:24 Intake & Output 04/28/16 04/28/16 04/29/16 06:59 18:59 06:59 Intake Total 540 200 Output Total 400 800 Balance 140 -600 Intake: IV 100 Piperacillin-Tazobactam 3 100 .375 gm In Dextrose/Water 1 50ml.bag @ 12.5 mls/hr IVPB Q8HR [facility] Rx#: [id number] Intake, IV Titration 110 Amount Promethazine Inj 12.5 mg 100 In Sodium Chloride 0.9% 50 ml @ 200 mls/hr IVPB Q6HR PRN Rx#:[id number] Sodium Chloride 0.9% 1, 10 000 ml @ 75 mls/hr IV . [id number] [facility] Rx#:[id number] Oral 330 200 Output: Urine 400 800 Uretheral (Storey) 400 Other: Voiding Method Indwelling Catheter Indwelling Catheter - Exam Constitutional: AOx3, cooperative Head: NC/AT Throat: Supple, no masses Respiratory: No increased work of breathing Cardiac: Regular rate and Rhythm GI: non tender, non distended Musculoskeletal: strengths are equal bilaterally 5/5 in upper extremities, Lower extremity strengths are equal bilaterally at 5/5. Neurological: CN II-XII in tact, patient was AOx3, speech and language are normal, no unilateralizing weakness, no seizure activity note on physical exam. Sensation was normal. Integementary: no rash, no erythema Psychiatric: mood and affect appropriate - Labs CBC & Chem 7: 04/28/16 07:33 04/28/16 21:07 Labs: Abnormal Lab Results - Last 24 Hours (Table) 04/28/16 04/28/16 04/28/16 Range/Units 07:33 07:33 21:07 Plt Count 766 H (150-450) k/uL Lymphocytes # 0.7 L (1.0-4.8) k/uL Sodium 124 L 125 L (137-145) mmol/L Chloride 88 L (98-107) mmol/L Creatinine 0.50 L (0.52-1.04) mg/dL Glucose 105 H (74-99) mg/dL Microbiology - Last 24 Hours (Table) 04/25/16 14:41 Blood Culture - Preliminary Blood No Growth after 72 hours 04/25/16 13:51 Blood Culture - Preliminary Blood No Growth after 72 hours 04/26/16 12:00 Gram Stain - Final Abdomen Wound Culture - Final Escherichia coli 04/26/16 12:00 Anaerobic Culture - Preliminary Abdomen Assessment and Plan (1) Migraine Narrative/Plan: Patient does have a 20+ year history of migraine with daily headache. Migraines do occur approximately 1-2 times per week. On exam she has reproducible pain and greater occipital nerve palpation. Pain is bilateral from posterior to anterior. Pain becomes predominantly anterior and frontal as the headache progresses. Patient was using Tegretol in the past as her daily baseline prophylaxis medication, topamax and sumatriptan as her abortive medication. She states the Tegretol does not work and often contributed to electrolyte abnormalities. The topamax also appears to be ineffective as well. I am going to discontinue the Topamax at this time. The tegretol will require weaning and will most likely need to be started outpatient. Patient's blood pressure was most recently 130/84. patient will continue Calan 120 mg SR as her daily prophylaxis medication. She could continue the sumatriptan as her abortive medication. EEG is still pending. Carotid doppler noted no hemodynamically significant stenosis. Patient does have a CT of the brain which noted microvascular ischemic disease. Patient is currently receiving Toradol when necessary. As a result I will forgo starting 81 mg aspirin daily until discharge. ordered: Calan 120 mg SR, 1 tab, po, Qday EEG Discontinue Topamax Continue: Imitrex as abortive medication for migraine It is possible that the patient's hyponatremia may also be contributing to her increased head pain. The Tegretol may be contributing to the hyponatremia. We may also need to reassess the head pain further outpatient once the Tegretol weaning has been completed. Neurology will continue to follow provide further recommendations and treatment as needed or warranted. I discussed the patient's pertinent medical information with Dr. Spivey. He agrees with the plan of care as implemented. Status: Acute
[2016-04-29] MEDS: HYDROcodone/APAP 5-325MG 1 EACH TAB PO PRN ×5 (00:14→20:26)
[2016-04-29] MEDS: PIPERACILLIN-TAZOBACTAM 3.375 GM in DEXTROSE/WATER 1 50ML.BAG IVPB SCH ×4 (00:14→23:19)
[2016-04-29] MEDS: ALPRAZolam 0.5 MG TAB PO PRN ×4 (00:14→20:25)
[2016-04-29] MEDS: ZOLPIDEM 10 MG TAB PO SCH ×2 (00:31→20:31)
[2016-04-29] MEDS: HYDROmorphone 1 MG/ML 1 ML SYRINGE IVP PRN ×5 (02:06→22:23)
[2016-04-29] MEDS: DULoxetine HCL 60 MG CAPSULE.DR PO SCH (08:04)
[2016-04-29] MEDS: carBAMazepine 200 MG TAB PO SCH ×2 (08:04→20:28)
[2016-04-29] MEDS: VERAPAMIL SR 120 MG TABLET.ER PO SCH (08:04)
[2016-04-29] MEDS: ESTRADIOL 1 MG TAB PO SCH (08:04)
[2016-04-29] MEDS: ENOXAPARIN 40 MG/0.4 ML SYRINGE SQ SCH (08:05)
[2016-04-29 09:08] LABS: Anion Gap 13 mmol/L; Blood Urea Nitrogen 13 mg/dL (7-17); Calcium 8.7 mg/dL (8.4-10.2); Carbon Dioxide 25 mmol/L (22-30); Chloride 89 mmol/L (98-107); Glucose 94 mg/dL (74-99); Non-African American GFR(MDRD) >60 (>60 ml/min/1.73 sqM); Potassium 4.3 mmol/L (3.5-5.1); Sodium 127 mmol/L (137-145)
--- NOTE | 2016-04-29 09:55 | PN ---
DATE OF SERVICE: 04/28/2016 This is a 55-year-old woman who was admitted with abdominal abscess, also had some diplopia and possible migraine versus TIA. The patient is being closely monitored. The patient had E. coli grown from the wound and currently, the patient is on Zosyn. Infectious Disease following the patient closely as well. The E. coli is sensitive to Zosyn. No chest pain or palpitation. No fever. On exam, alert and oriented x3. Pulse 80, blood pressure 148/80, respirations 16 minutes, temperature is 97 degrees, pulse ox 97% on room air. HEENT: Conjunctivae normal. NECK: No jugular venous distension. CARDIOVASCULAR: S1, S2, muffled. RESPIRATORY: Breath sounds diminished at the bases. No rhonchi, no crackles. Abdomen is soft, mild diffuse tenderness. EXTREMITIES: Legs no edema, no swelling. NERVOUS SYSTEM: No focal deficits. Labs are at this time, the cultures are showing E. coli. Other labs are showing WBC 4.3, hemoglobin is 11.7. Sodium is 124. ASSESSMENT: 1. Abdominal abscess, infected hematoma secondary to recent surgery for right colonic volvulus, related to internal hernia with right colectomy. 2. Diplopia, difficulty with vision, possible acute transient ischemic attack versus migraines. 3. Increased platelets. 4. Hyponatremia, possibly SIADH. 5. Increased random blood sugar. 6. History of anxiety. 7. Degenerative joint disease and back pain, chronic. 8. Chronic Storey catheter. 9. History of bariatric surgery. 10. History of bladder surgery. 11. History of hysterectomy. 12. Anxiety, bipolar, not otherwise specified. 13. History of nicotine dependence. 14. FULL CODE with instructions. RECOMMENDATION: In this 55-year-old woman who presented with multiple complex medical issues, will monitor the patient closely. Continue with the current medications. Continue with the symptomatic treatment. Otherwise, at this time I would recommend continue with antibiotics. Continue with current medications. Guarded prognosis because of multiple complex medical issues and further antibiotic recommendation per ID. Will closely follow with Surgery. Further recommendations to follow.
--- NOTE | 2016-04-29 10:48 | P.PN ---
Subjective Principal diagnosis: Patient is seen in follow-up for hyponatremia. Sodium level is improving and is up to 127 today. Her oral intake remains poor but she is drinking Ensure protein shakes. Denies vomiting or diarrhea. Denies chest pain or shortness of breath. Vital signs are stable. General: The patient appeared well nourished and normally developed. HEENT: Head exam is unremarkable. Neck is without jugular venous distension. LUNGS: Lungs are clear to auscultation and percussion. Breath sounds decreased. HEART: Rate and Rhythm are regular. First and second heart sounds normal. No murmurs, rubs or gallops. ABDOMEN: Abdominal exam reveals normal bowel sounds. Non-tender and non- distended. No evidence of peritonitis. EXTREMITITES: No clubbing, cyanosis, or edema. Objective - Vital Signs Vital signs: Vital Signs Temp 98.1 F 04/29/16 08:10 Pulse 82 04/29/16 08:10 Resp 16 04/29/16 08:10 BP 119/73 04/29/16 08:10 Pulse Ox 96 04/29/16 08:10 Intake & Output 04/28/16 04/29/16 04/29/16 18:59 06:59 18:59 Intake Total 200 910 Output Total 800 900 Balance -600 910 -900 Intake: IV 50 Piperacillin-Tazobactam 3 50 .375 gm In Dextrose/Water 1 50ml.bag @ 12.5 mls/hr IVPB Q8HR [facility] Rx#: [id number] Oral 200 860 Output: Urine 800 900 Other: Voiding Method Indwelling Catheter Indwelling Catheter Indwelling Catheter # Bowel Movements 1 - Labs CBC & Chem 7: 04/28/16 07:33 04/29/16 07:54 Labs: Abnormal Lab Results - Last 24 Hours (Table) 04/28/16 04/29/16 Range/Units 21:07 07:54 Sodium 125 L 127 L (137-145) mmol/L Chloride 89 L (98-107) mmol/L Microbiology - Last 24 Hours (Table) 04/25/16 14:41 Blood Culture - Preliminary Blood No Growth after 72 hours 04/25/16 13:51 Blood Culture - Preliminary Blood No Growth after 72 hours 04/26/16 12:00 Gram Stain - Final Abdomen Wound Culture - Final Escherichia coli 04/26/16 12:00 Anaerobic Culture - Preliminary Abdomen Assessment and Plan Plan: Assessment: #1. Hyponatremia. Appears euvolemic in nature. Sodium level improved to 127 today. Urine osmolality to 236 with a urine sodium of 98. Her BUN was as low as 4. Etiology is tea and toast diet along with a component of SIADH related to pain and nausea. Additionally she is on Toradol for pain as well as Tegretol which can cause hyponatremia. #2. Status post incision and drainage of abdominal wall hematoma on April 26. Plan: Hep-Lock IV fluids. Maintain 1.2 L fluid restriction. Maintain ensure with meals. Repeat electrolytes in the morning.
--- NOTE | 2016-04-29 12:54 | P.PN ---
Subjective Principal diagnosis: headache, blurred vision, dizziness INTERVAL UPDATE: patient is a 55-year-old female was transferred from [facility] for abdominal surgical wound. Neurology was consulted and is following the patient for head pain, dizziness. Dizziness interval update. Patient does have a documented migraine history as noted in previous note. She was started on Calan 120 mg SR / verapamil yesterday. I also discontinued her Topamax yesterday. The patient states that it is the first 24 hour period where she has been able to have a restful night sleep without headache and a significantly reduced daytime headache. Further discussion regarding the patient's Tegretol concluded that the patient has now disclosed that the Tegretol is not only used for her migraine was also being used for her secondary psychiatric disorder. As a result this information we discussed that we may need to involve her psychiatric provider and an outpatient visit to determine a medication regimen for her that would be more beneficial given her hyponatremia history and perceived ineffectiveness as related to treating her head pain. Patient is still waiting for an EEG at this time. Patient also states that she has low back pain as a result of crush injury of proximally 20 years ago and was reportedly told that she has disc herniations at L4-5 and L5-S1. She states she has been under care of pain management while residing in [place]. He stated that her former pain provider was placed in senior care. Patient states that her pain is bilateral low back pain that radiates down the posterior right lower extremity. She has used pain medication in the past and states it has been intermittently effective. She has not had any diagnostic workup greater than 2 years. Objective - Vital Signs Vital signs: Vital Signs Temp 98.1 F 04/29/16 08:10 Pulse 82 04/29/16 08:10 Resp 16 04/29/16 08:10 BP 119/73 04/29/16 08:10 Pulse Ox 96 04/29/16 08:10 Intake & Output 04/28/16 04/29/16 04/29/16 18:59 06:59 18:59 Intake Total 200 910 Output Total 800 900 Balance -600 910 -900 Intake: IV 50 Piperacillin-Tazobactam 3 50 .375 gm In Dextrose/Water 1 50ml.bag @ 12.5 mls/hr IVPB Q8HR [facility] Rx#: [id number] Oral 200 860 Output: Urine 800 900 Other: Voiding Method Indwelling Catheter Indwelling Catheter Indwelling Catheter # Bowel Movements 1 - Exam Constitutional: AOx3, cooperative Head: NC/AT Throat: Supple, no masses Respiratory: No increased work of breathing Cardiac: Regular rate and Rhythm GI: non tender, non distended Musculoskeletal: strengths are equal bilaterally 5/5 in upper extremities, Lower extremity strengths are equal bilaterally at 5/5. patient has reproducible pain with both extension and flexion at the waist. Patient also has pain into the bilateral lower extremities right greater than left in the posterior legs consistent with the S1 dermatome. patient has negative straight leg raise, negative provocative testing for sacroiliac dysfunction. Neurological: CN II-XII in tact, patient was AOx3, speech and language are normal, no unilateralizing weakness, no seizure activity note on physical exam. Sensation was normal. Integementary: no rash, no erythema Psychiatric: mood and affect appropriate - Labs CBC & Chem 7: 04/28/16 07:33 04/29/16 07:54 Labs: Abnormal Lab Results - Last 24 Hours (Table) 04/28/16 04/29/16 Range/Units 21:07 07:54 Sodium 125 L 127 L (137-145) mmol/L Chloride 89 L (98-107) mmol/L Microbiology - Last 24 Hours (Table) 04/25/16 11:40 Anaerobic Culture - Final Abdomen 04/25/16 14:41 Blood Culture - Preliminary Blood No Growth after 72 hours 04/25/16 13:51 Blood Culture - Preliminary Blood No Growth after 72 hours 04/26/16 12:00 Gram Stain - Final Abdomen Wound Culture - Final Escherichia coli 04/26/16 12:00 Anaerobic Culture - Preliminary Abdomen Assessment and Plan (1) Migraine Narrative/Plan: 1. Head pain/migraine: Patient does have a 20+ year history of migraine with daily headache. Migraines do occur approximately 1-2 times per week. On exam she has reproducible pain and greater occipital nerve palpation. Pain is bilateral from posterior to anterior. Pain becomes predominantly anterior and frontal as the headache progresses. Patient was using Tegretol in the past as her daily baseline prophylaxis medication, topamax and sumatriptan as her abortive medication. She states the Tegretol does not work and often contributed to electrolyte abnormalities. Topamax was discontinued. The tegretol will require weaning and will most likely need to be started outpatient. Patient's blood pressure was most recently 130/84. Patient was started on Calan 120 mg, SR yesterday and she reports significant improvement in headache management. Patient have a CT of the brain with no acute process noted however she did have microvascular ischemia noted on imaging. EEG is still pending. Continue: Imitrex as abortive medication for migraine Calan 120 mg, SR, 1 tab, po, QDAY It is possible that the patient's hyponatremia may also be contributing to her increased head pain. The Tegretol may be contributing to the hyponatremia. We may also need to reassess the head pain further outpatient once the Tegretol weaning has been completed. If the patient's EEG is within normal limits, the patient can be cleared from a neurological standpoint for discharge.: Continue all medications as previously noted. 2. Lumbago: Patient states she has a history of low back injury with previous diagnosis of lumbar DDD and possible lumbar radiculopathy. Low back pain started as a result of a traumatic crush injury while at work. She was treating with a prior pain provider in [place] which included primarily oral pain medication. She does not have any diagnostic workup in the last 2 years. On exam her findings are consistent with possible lumbar DDD. I will conduct further workup outpatient to include an NCS/EMG of the lower extremities as well as an MRI of the lumbar spine. Further treatment options will be discussed once results of imaging and testing are received outpatient. I discussed the patient's pertinent medical information with Dr. Spivey. He agrees with the plan of care as implemented. Status: Acute
--- NOTE | 2016-04-29 13:20 | PN ---
DATE OF SERVICE: 04/28/2016 REASON FOR FOLLOW-UP: Abdominal wall abscess or infected seroma. INTERVAL HISTORY: The patient is afebrile. The patient is status post drainage of the infected hematoma. The patient tolerated the procedure. The patient denies having any chest pain, shortness of breath or cough or any diarrhea. On examination, blood pressure is 105/64 with a pulse of 80, temperature 96.3. She is 95% on room air. General description is an middle-aged female, lying in bed in no distress. RESPIRATORY SYSTEM: Unlabored breathing. Clear to auscultation anteriorly. HEART: S1, S2. Regular rate and rhythm. ABDOMEN: Soft. Wound is currently packed. Extremities no edema of feet. LABS: Hemoglobin is 11.7, white count 4.6 with a BUN of 7, creatinine 0.50. Wound culture with an E. coli. DIAGNOSTIC IMPRESSION AND PLAN: Patient with abdominal wall infected hematoma status post drainage. Cultures with an Escherichia coli. At this time, the patient will continue on Zosyn. However, will be able to finish therapy with oral antibiotics. Continue supportive care. MADISYN
--- NOTE | 2016-04-29 19:31 | PN ---
DATE OF SERVICE: 04/29/2016 This 55 -year-old woman who was admitted with abdominal abscess is being closely monitored. The patient is complaining of abdominal pain. Seen and evaluated the patient along with nurse practitioner. Please refer to the nurse practitioner notes and impression documented as a scribe for further information. Further recommendations to follow. Prognosis guarded.
--- NOTE | 2016-04-29 20:25 | P.PN ---
Subjective Principal diagnosis: Abdominal wall hematoma Patient states her pain is about the same. Decreased swelling at the surgical site. She is afebrile. Cultures are reviewed. Objective - Vital Signs Vital signs: Vital Signs Temp 98.1 F 04/29/16 08:10 Pulse 82 04/29/16 08:10 Resp 16 04/29/16 16:00 BP 119/73 04/29/16 08:10 Pulse Ox 96 04/29/16 08:10 Intake & Output 04/29/16 04/29/16 04/30/16 06:59 18:59 06:59 Intake Total 910 710 Output Total 1300 Balance 910 -590 Intake: IV 50 50 Piperacillin-Tazobactam 3 50 50 .375 gm In Dextrose/Water 1 50ml.bag @ 12.5 mls/hr IVPB Q8HR [facility] Rx#: [id number] Oral 860 660 Output: Urine 1300 Other: Voiding Method Indwelling Catheter Indwelling Catheter # Bowel Movements 1 - Exam Abdomen: Soft, mild distention, mild induration at the surgical site, wound clean with minimal serosanguineous drainage, no erythema - Labs CBC & Chem 7: 04/28/16 07:33 04/29/16 07:54 Labs: Abnormal Lab Results - Last 24 Hours (Table) 04/28/16 04/29/16 Range/Units 21:07 07:54 Sodium 125 L 127 L (137-145) mmol/L Chloride 89 L (98-107) mmol/L Microbiology - Last 24 Hours (Table) 04/25/16 14:41 Blood Culture - Preliminary Blood No Growth after 96 hours 04/25/16 13:51 Blood Culture - Preliminary Blood No Growth after 96 hours 04/25/16 11:40 Anaerobic Culture - Final Abdomen Assessment and Plan (1) Abdominal wall hematoma Narrative/Plan: Continue IV antibiotics. Continue local wound care. If the patient's pain persists would consider repeating CAT scan with oral and IV contrast. Would like to wait for the hematoma to improve prior to doing so. Status: Acute
[2016-04-29] MEDS: amLODIPine 10 MG TAB PO SCH (20:28)
--- NOTE | 2016-04-29 22:20 | P.PN ---
Subjective Date of service 04/29/2016 Progress note being dictated for Dr. Pantoja. Interval history: This is a 55-year-old female admitted with abdominal abscess/ hematoma, status post I and D. Wound cultures positive with E. coli , maintained on Zosyn as per infectious disease. Afebrile. Complains of abdominal pain. Denies chest pain, palpitations or increasing shortness of breath. Continues on fluid restrictions with Sodium improving, up to 127. Objective - Vital Signs Vital signs: Vital Signs Temp 98.1 F 04/29/16 08:10 Pulse 82 04/29/16 08:10 Resp 16 04/29/16 08:10 BP 119/73 04/29/16 08:10 Pulse Ox 96 04/29/16 08:10 Intake & Output 04/28/16 04/29/16 04/29/16 18:59 06:59 18:59 Intake Total 200 910 360 Output Total 800 900 Balance -600 910 -540 Intake: IV 50 Piperacillin-Tazobactam 3 50 .375 gm In Dextrose/Water 1 50ml.bag @ 12.5 mls/hr IVPB Q8HR [facility] Rx#: [id number] Oral 200 860 360 Output: Urine 800 900 Other: Voiding Method Indwelling Catheter Indwelling Catheter Indwelling Catheter # Bowel Movements 1 - Exam PHYSICAL EXAM: VITAL SIGNS: As above GENERAL: [Sitting up in bed, tired appearing] HEENT: conjunctiva normal.] NECK: [Supple, no JVD] RESPIRATORY EFFORT: Normal [] LUNGS: [Lungs clear, no crackles, no wheezing] CARDIOVASCULAR[regular S1 and S2, no edema] GI: [Abdomen soft, mildly distended with diffuse tenderness, dressing clean dry and intact, positive bowel sounds.] PSYCH: [Alert and oriented -3, mood and affect normal.] NEURO: [No focal deficits] Microbiology 04/25/16 14:41 Blood Blood Culture - Preliminary No Growth after 96 hours 04/25/16 13:51 Blood Blood Culture - Preliminary No Growth after 96 hours 04/25/16 11:40 Abdomen Anaerobic Culture - Final 04/26/16 12:00 Abdomen Gram Stain - Final 04/26/16 12:00 Abdomen Wound Culture - Final Escherichia coli 04/26/16 12:00 Abdomen Anaerobic Culture - Preliminary 04/25/16 11:40 Abdomen Gram Stain - Final 04/25/16 11:40 Abdomen Wound Culture - Final - Labs CBC & Chem 7: 04/28/16 07:33 04/29/16 07:54 Labs: Abnormal Lab Results - Last 24 Hours (Table) 04/28/16 04/29/16 Range/Units 21:07 07:54 Sodium 125 L 127 L (137-145) mmol/L Chloride 89 L (98-107) mmol/L Microbiology - Last 24 Hours (Table) 04/25/16 13:51 Blood Culture - Preliminary Blood No Growth after 96 hours 04/25/16 11:40 Anaerobic Culture - Final Abdomen 04/25/16 14:41 Blood Culture - Preliminary Blood No Growth after 72 hours 04/26/16 12:00 Gram Stain - Final Abdomen Wound Culture - Final Escherichia coli 04/26/16 12:00 Anaerobic Culture - Preliminary Abdomen Assessment and Plan Plan: 1. Abdominal abscess, infected hematoma secondary to recent surgery for right colonic volvulus, related to internal hernia with right colectomy. Wound Culture with E. coli 2. Diplopia, difficulty with vision, possible acute TIA versus migraines 3. Increased platelet 4. Hyponatremia, possibly SIADH 5. History of anxiety 6. Degenerative joint disease with chronic back pain 7. Chronic Storey catheter 8. Anxiety, bipolar, not otherwise specified 9. Multiple surgeries; bariatric surgery, bladder surgery, hysterectomy 10. History of nicotine dependence Plan: Continue on current medication regime, antibiotics, monitoring and symptomatic treatment. Increase ambulation. Per infectious disease, oral antibiotics at discharge. Pain management as per surgery. Maintain fluid restrictions. Close monitoring of electrolytes with repeat labs ordered for a.m. Discharge planning in progress for tomorrow, pending surgery"s clearance. Prognosis guarded given multiple complex medical issues. The impression and plan of care has been dictated as directed. : I performed a H&P examination of this patient and discussed the same with the dictator. I agree with the dictator's note. Any additional findings/opinions/ etc. will be noted.
--- NOTE | 2016-04-29 22:20 | PN ---
DATE OF SERVICE: 04/29/2016 REASON FOR FOLLOWUP: Abdominal wound infected hematoma. INTERVAL HISTORY: The patient is afebrile. She has been breathing comfortably. Pain to the abdominal wall seems to have slightly improved. Denies having any chest pain, shortness of breath or cough. On examination, blood pressure is 119/73 with a pulse of 82, temperature 98.1. She is 96% on room air. General description is a middle-aged female lying in bed in no distress. RESPIRATORY SYSTEM: Unlabored breathing. Clear to auscultation anteriorly. HEART: S1, S2. Regular rate and rhythm. ABDOMEN: Soft. Abdominal wall wound with slight blood-tinged drainage at the base. Surrounding swelling and redness have improved. No drainage. LABS: White count of 4.6. BUN of 13, creatinine 0.64. DIAGNOSTIC IMPRESSION AND PLAN: Patient with abdominal wall infected hematoma. Culture positive for E. coli. Patient is currently maintained on Zosyn, which will be switched to Rocephin. She will be able to finish therapy with p.o. Ceftin along with Aquacel Silver packing to the wound. Continue with supportive care. MADISYN
[2016-04-30] MEDS: HYDROcodone/APAP 5-325MG 1 EACH TAB PO PRN ×3 (00:50→13:49)
[2016-04-30] MEDS: PROMETHAZINE INJ 12.5 MG in SODIUM CHLORIDE 0.9% 50 ML IVPB PRN ×2 (01:10→04:26)
[2016-04-30] MEDS: ENOXAPARIN 40 MG/0.4 ML SYRINGE SQ SCH (07:47)
[2016-04-30] MEDS: PIPERACILLIN-TAZOBACTAM 3.375 GM in DEXTROSE/WATER 1 50ML.BAG IVPB SCH (07:47)
[2016-04-30] MEDS: ESTRADIOL 1 MG TAB PO SCH (07:48)
[2016-04-30] MEDS: DULoxetine HCL 60 MG CAPSULE.DR PO SCH (07:48)
[2016-04-30] MEDS: carBAMazepine 200 MG TAB PO SCH (07:48)
[2016-04-30] MEDS: VERAPAMIL SR 120 MG TABLET.ER PO SCH (07:48)
[2016-04-30] MEDS: HYDROmorphone 1 MG/ML 1 ML SYRINGE IVP PRN (07:52)
[2016-04-30 08:00] VITALS: BP 115/72; PULSE 84; TEMP 97.4
--- NOTE | 2016-04-30 08:18 | EEG ---
DATE OF SERVICE: 04/29/2016 REASON FOR TESTING: Dizziness. AGE: 55Y DESCRIPTION OF THE PROCEDURE: This EEG was performed using a 21-channel digital electroencephalograph, following international 10 to 20 system. DESCRIPTION OF THE RECORDING: From the beginning of the tracing, and with the patient's eyes closed, the background rhythm was mostly consisting of 8 to 9 Hz alpha frequency in the posterior occipital leads. No obvious asymmetry is seen. Photic stimulation was performed with a minimal driving response seen. No pathological waves were elicited. Frequent muscle and movement artifacts are seen. Hyperventilation was not performed. Later in the tracing, the patient does reach stage II of sleep and occasional sleep spindles are seen. No epileptiform discharges were seen. Her EKG lead showed a regular rate and rhythm. INTERPRETATION: This asleep and awake EEG can be considered within normal limits. There was no asymmetry seen. No epileptiform discharges were noticed. The absence of epileptiform discharges does not rule out the diagnosis of epilepsy, therefore, clinical correlation is recommended.
[2016-04-30 09:16] LABS: Anion Gap 11 mmol/L; Blood Urea Nitrogen 10 mg/dL (7-17); Calcium 8.9 mg/dL (8.4-10.2); Carbon Dioxide 25 mmol/L (22-30); Chloride 94 mmol/L (98-107); Glucose 93 mg/dL (74-99); Non-African American GFR(MDRD) >60 (>60 ml/min/1.73 sqM); Potassium 4.9 mmol/L (3.5-5.1); Sodium 130 mmol/L (137-145)
[2016-04-30] MEDS: SUMAtriptan SUCCINATE 50 MG TAB PO PRN (09:35)
[2016-04-30] MEDS: ALPRAZolam 0.5 MG TAB PO PRN (09:35)
--- NOTE | 2016-04-30 10:40 | P.PN ---
Subjective Principal diagnosis: Patient is seen in follow-up for hyponatremia. Sodium level is improving and is up to 130 today. Her oral intake remains poor but she is drinking Ensure protein shakes. Denies vomiting or diarrhea. Denies chest pain or shortness of breath. Vital signs are stable. General: The patient appeared well nourished and normally developed. HEENT: Head exam is unremarkable. Neck is without jugular venous distension. LUNGS: Lungs are clear to auscultation and percussion. Breath sounds decreased. HEART: Rate and Rhythm are regular. First and second heart sounds normal. No murmurs, rubs or gallops. ABDOMEN: Abdominal exam reveals normal bowel sounds. Non-tender and non- distended. No evidence of peritonitis. EXTREMITITES: No clubbing, cyanosis, or edema. Objective - Vital Signs Vital signs: Vital Signs Temp 97.4 F L 04/30/16 07:59 Pulse 84 04/30/16 07:59 Resp 16 04/30/16 07:59 BP 115/72 04/30/16 07:59 Pulse Ox 97 04/30/16 07:59 Intake & Output 04/29/16 04/30/16 04/30/16 18:59 06:59 18:59 Intake Total 710 140 Output Total 1300 1220 Balance -590 -1080 Intake: IV 50 50 Piperacillin-Tazobactam 3 50 50 .375 gm In Dextrose/Water 1 50ml.bag @ 12.5 mls/hr IVPB Q8HR [facility] Rx#: [id number] Intake, IV Titration 90 Amount IV Fluid Continuation 1, 40 000 ml As IV .[facility] Rx#:[id number] Promethazine Inj 12.5 mg 50 In Sodium Chloride 0.9% 50 ml @ 200 mls/hr IVPB Q6HR [facility] Rx#:[id number] Oral 660 Output: Urine 1300 1220 Other: Voiding Method Indwelling Catheter Indwelling Catheter Indwelling Catheter # Voids 1 - Labs CBC & Chem 7: 04/28/16 07:33 04/30/16 08:16 Labs: Abnormal Lab Results - Last 24 Hours (Table) 04/30/16 Range/Units 08:16 Sodium 130 L (137-145) mmol/L Chloride 94 L (98-107) mmol/L Microbiology - Last 24 Hours (Table) 04/25/16 14:41 Blood Culture - Preliminary Blood No Growth after 96 hours 04/25/16 13:51 Blood Culture - Preliminary Blood No Growth after 96 hours 04/25/16 11:40 Anaerobic Culture - Final Abdomen Assessment and Plan Plan: Assessment: #1. Hyponatremia. Appears euvolemic in nature. Sodium level improved to 130 today. Urine osmolality to 236 with a urine sodium of 98. Her BUN was as low as 4. Etiology is tea and toast diet along with a component of SIADH related to pain and nausea. Additionally she is on Toradol for pain as well as Tegretol which can cause hyponatremia. #2. Status post incision and drainage of abdominal wall hematoma on April 26. Plan: Hep-Lock IV fluids. Maintain 1.2 L fluid restriction. Maintain ensure with meals. Repeat electrolytes in the morning. Stable to be discharged home from nephrology standpoint and follow-up as an outpatient in the next 2 weeks.
--- NOTE | 2016-04-30 12:31 | PN ---
DATE OF SERVICE: 04/30/2015 Reason for followup is infected abdominal wall hematoma. INTERVAL HISTORY: The patient is afebrile. She is currently breathing comfortably. Denies any significant chest pain or shortness of breath or cough. No abdominal pain or any diarrhea. On examination, blood pressure 115/72 with a pulse of 84, temperature 97.4. She is 97% on room air. General description is a middle-age female, lying in bed in no distress. RESPIRATORY SYSTEM: Unlabored breathing. Clear to auscultation anteriorly. HEART: S1, S2 regular rate and rhythm. ABDOMEN: Soft, no tenderness. LABS: BUN of 10, creatinine 0.55. Wound culture with an E. coli. DIAGNOSTIC IMPRESSION AND PLAN: Patient with abdominal wall infected hematoma, status post drainage. Culture with an Escherichia coli. Plan will be to finish therapy with p.o. Ceftin for 10 days and outpatient follow. Continue supportive care.
--- NOTE | 2016-04-30 14:00 | P.PN ---
Subjective Principal diagnosis: Abdominal wall hematoma Patient says her pain is less today. She is quite anxious to go home today. She is tolerating her diet. She is afebrile. Objective - Vital Signs Vital signs: Vital Signs Temp 97.4 F L 04/30/16 07:59 Pulse 84 04/30/16 07:59 Resp 16 04/30/16 07:59 BP 115/72 04/30/16 07:59 Pulse Ox 97 04/30/16 07:59 Intake & Output 04/29/16 04/30/16 04/30/16 18:59 06:59 18:59 Intake Total 710 140 440 Output Total 1300 1220 Balance -590 -1080 440 Intake: IV 50 50 Piperacillin-Tazobactam 3 50 50 .375 gm In Dextrose/Water 1 50ml.bag @ 12.5 mls/hr IVPB Q8HR [facility] Rx#: [id number] Intake, IV Titration 90 Amount IV Fluid Continuation 1, 40 000 ml As IV .[facility] Rx#:[id number] Promethazine Inj 12.5 mg 50 In Sodium Chloride 0.9% 50 ml @ 200 mls/hr IVPB Q6HR [facility] Rx#:[id number] Oral 660 440 Output: Urine 1300 1220 Other: Voiding Method Indwelling Catheter Indwelling Catheter Indwelling Catheter # Voids 1 - Exam Abdomen: Soft, nondistended, mild tenderness, wound clean - Labs CBC & Chem 7: 04/28/16 07:33 04/30/16 08:16 Labs: Abnormal Lab Results - Last 24 Hours (Table) 04/30/16 Range/Units 08:16 Sodium 130 L (137-145) mmol/L Chloride 94 L (98-107) mmol/L Microbiology - Last 24 Hours (Table) 04/26/16 12:00 Anaerobic Culture - Final Abdomen 04/25/16 14:41 Blood Culture - Preliminary Blood No Growth after 96 hours 04/25/16 13:51 Blood Culture - Preliminary Blood No Growth after 96 hours 04/25/16 11:40 Anaerobic Culture - Final Abdomen Assessment and Plan (1) Abdominal wall hematoma Narrative/Plan: Continue local wound care. Continue antibiotics per infectious disease. Follow -up one week. Status: Acute
--- NOTE | 2016-05-01 11:54 | DS ---
DATE OF ADMISSION: 04/24/2016 DATE OF DISCHARGE: 04/30/2016 DATE OF SERVICE: 04/30/2016 FINAL DIAGNOSES: 1. Abdominal abscess, infected hematoma, possibly secondary to recent surgery for right colonic volvulus related to internal hernia with right colectomy. Wound culture with Escherichia coli. 2. Diplopia, difficulty with vision, possible transient ischemic attack versus migraines. 3. Increased platelets. 4. Hyponatremia, possibly syndrome of inappropriate antidiuretic hormone secretion. 5. History of anxiety. 6. Degenerative joint disease with chronic back pain. 7. Chronic indwelling Storey catheter. 8. Anxiety, bipolar, not otherwise specified. 9. Multiple surgeries, bariatric surgery, bladder surgery, hysterectomy. 10. History of nicotine dependence. DISCHARGE DISPOSITION: The patient will be discharged in a stable condition with guarded prognosis. Discharge cleared by multiple consultants including Surgery. HISTORY OF PRESENT ILLNESS: [id number] woman with a past medical history of multiple medical problems admitted with significant abdominal infection and other medical problems as mentioned earlier. Patient also was evaluated during hospitalization by Neurology and as well as Infectious Disease and Surgery. Care was coordinated. Patient improved significantly. On exam, vitals are stable. CARDIOVASCULAR: S1 and S2 muffled. ABDOMEN: Soft, nontender. NERVOUS SYSTEM: No focal deficits. LABS: 11.7. Sodium is improved to 130. The patient will be discharged in stable condition with guarded prognosis with the following advice: 1. Diet is cardiac. 2. Activity limited until followup. 3. Follow up with Dr. Brenden Bolanos in 2 to 3 days. 4. Follow up with Dr. Sanchez, Dr. Spivey, Dr. Franks, and Dr. Damico as recommended. Medications prior to admission include: 1. Xanax 1 mg p.o. q.i.d. p.r.n. 2. Ventolin HFA 2 puffs q.4 p.r.n. 3. Dulcolax 5 mg p.o. daily p.r.n. 4. Ceftin 500 mg p.o. b.i.d. for 10 days. 5. Cymbalta 60 mg p.o. daily. 6. Colace 100 mg b.i.d. p.r.n. 7. Estrace 1 mg p.o. daily. 8. Flonase one spray daily p.r.n. 9. [place] 10 mg q.6 p.r.n. 10. Phenergan 25 mg q.h.s. p.r.n. 11. Sumatriptan 100 mg daily p.r.n. 12. Topamax 25 mg p.o. q.h.s. 13. Isoptin SR 120 mg p.o. daily. 14. Ambien 10 mg q.h.s. 15. Norvasc 10 mg p.o. q.h.s. 16. Tegretol 400 mg p.o. b.i.d. 17. Atarax 50 mg t.i.d. p.r.n. Once again, the patient will be discharged in stable condition with guarded prognosis. MTDD
== END 2016-04-30 14:39 | disposition home health service (06) | DRG 908 ==
LOC: 5MS5E 19:15
PROVIDERS: ADMIT Internal Medicine; ATTEND Internal Medicine
PROC: 0W3F0ZZ Control Bleeding in Abdominal Wall, Open Approach (ICD-10-PCS; principal; 2016-04-26 11:05)
PROC: 0J980ZZ Drainage of Abdomen Subcutaneous Tissue and Fascia, Open Approach (ICD-10-PCS; principal; 2016-04-26 11:05)
DX: L76.32 Postprocedural hematoma of skin and subcutaneous tissue following other procedure (principal); L02.211 Cutaneous abscess of abdominal wall; E22.2 Syndrome of inappropriate secretion of antidiuretic hormone; G45.9 Transient cerebral ischemic attack, unspecified; M96.843 Postprocedural seroma of a musculoskeletal structure following other procedure; F31.9 Bipolar disorder, unspecified; F41.9 Anxiety disorder, unspecified; G43.909 Migraine, unspecified, not intractable, without status migrainosus; G89.29 Other chronic pain; B96.20 Unspecified Escherichia coli [E. coli] as the cause of diseases classified elsewhere; K86.9 Disease of pancreas, unspecified; Z85.51 Personal history of malignant neoplasm of bladder; Z87.891 Personal history of nicotine dependence; Z90.49 Acquired absence of other specified parts of digestive tract; Z90.710 Acquired absence of both cervix and uterus; Z95.810 Presence of automatic (implantable) cardiac defibrillator; Z98.84 Bariatric surgery status; Z79.899 Other long term (current) drug therapy
CPT/HCPCS: 70450; 74183; 80048; 80051; 80053; 82150; 83690; 83930; 83935; 84100; 84133; 84295; 84300; 85025; 85027; 87040; 87070; 87075; 87077; 87186; 87205; 93880; 95819; 99152; 99153

== ENCOUNTER → 2016-05-16 | Outpatient (CLI) | payer MEDICARE, OTHER ==
--- NOTE | 2016-05-16 13:01 | MR ---
EXAMINATION TYPE: MR lumbar spine wo con DATE OF EXAM: 05/16/2016 7:51 AM COMPARISON: CT abdomen and pelvis April 24, 2016. Outside MRI lumbar spine report August 03, 2014. HISTORY: Lumbago per order. Low back pain for years going into right lower extremity per patient. TECHNIQUE: Multiplanar, multisequence imaging of the lumbar spine is performed without IV contrast. FINDINGS: Sagittal images of the lumbar spine show vertebral body heights and alignment to appear sat isfactory. Multilevel disc desiccation is present. Disc space heights are fairly well-maintained. The re is increased signal posteriorly consistent with annular tear L5-S1 level. No large posterior disc herniations are seen on sagittal images. The conus medullaris is normal in position and signal ending at inferior L1 vertebral body level. The bone marrow signal intensity is within normal limits. No s ignificant spurring is seen. Axial images show the T12-L1, L1-L2, L2-L3, and L3-L4 levels to appear within normal limits. Axial images at L4-L5 level show mild facet degenerative changes and ligament flavum hypertrophy mild ly effacing posterior lateral thecal sac on axial image 8. Bilateral neural foramina remain patent. Axial images at the L5-S1 level show mild facet degenerative changes bilaterally. There is small cent ral disc protrusion minimally effacing anterior thecal sac, bilateral neural foramina are patent. May be partially duplicated collecting system on the right with central pelvic fullness and proximal ureter prominence redemonstrated when correlating with older CTs. 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 Consider IVP or CT urogram correlation.
== END | disposition home or self-care (01) ==
LOC: RADMRIMAIN 06:55
PROVIDERS: ATTEND Psychiatry & Neurology Pain Medicine
DX: M47.816 Spondylosis without myelopathy or radiculopathy, lumbar region (principal)
CPT/HCPCS: 72148

== ENCOUNTER → 2016-12-16 | Outpatient (CLI) | payer MEDICARE, OTHER ==
--- NOTE | 2016-12-16 15:36 | MR ---
EXAMINATION TYPE: MR brain wo con DATE OF EXAM: 12/16/2016 COMPARISON: CT 04/27/2016 HISTORY: 56-year-old female headaches, dizziness TECHNIQUE: Multiplanar, multisequence images of the brain and brainstem were acquired without IV con trast. Diffusion weighted imaging is performed. FINDINGS: No evidence for acute infarction, hemorrhage, mass, mass effect, midline shift, herniation, effacemen t of basal cisterns, or extra-axial fluid collection. The ventricles and sulci are age-appropriate with mild generalized supratentorial volume loss. Major intracranial flow voids are intact. T2/FLAIR weighted sequences show mild to moderate scattered bright white matter foci in the subcortic al and deep white matter of both cerebral hemispheres numbering approximately 10-15 left and 15-20 on the right Midline structures demonstrate normal morphology. The craniocervical junction is normal. Mucosal thickening ethmoid air cells. Globes are intact. Opacification within the left-sided mastoid air cells. IMPRESSION: 1. No acute intracranial abnormality seen. Mild age-related atrophy. 2. T2 bright white matter foci in both cerebral hemispheres with mild to moderate scattered burden. F indings are nonspecific but most likely related to changes of chronic small vessel ischemic disease. Findings can also be seen in the setting of chronic migraines, vasculitis, hypertension, and demyeli nating disease. 3. Trapped fluid in the left mastoid air cells. Correlate for any mastoid pain to exclude mastoiditis .
== END | disposition home or self-care (01) ==
LOC: RADMRIMAIN 10:35
PROVIDERS: ATTEND Psychiatry & Neurology Neurology
DX: G31.9 Degenerative disease of nervous system, unspecified (principal); R90.82 White matter disease, unspecified
CPT/HCPCS: 70551

== ENCOUNTER 2016-12-18 12:27 | Observation (INO) | payer MEDICARE, OTHER ==
[2016-12-18] MEDS ORDERED: SODIUM CHLORIDE 0.9% 500 ML IV STA (13:12)
[2016-12-18 13:31] LABS: Basophils # (A) 0.1 k/uL (0-0.2); Basophils % (A) 1 %; CH 22.8; CHCM 28.5; Eosinophils # (A) 0.4 k/uL (0-0.7); Eosinophils % (A) 6 %; HCT 26.2 % (34.0-46.0); HGB 7.7 gm/dL (11.4-16.0); Hypochromasia Marked; Luc # (Auto) 0.22; Luc % (Auto) 3; Lymphocytes # (A) 1.3 k/uL (1.0-4.8); Lymphocytes % (A) 17 %; MCH 23.6 pg (25.0-35.0); MCHC 29.4 g/dL (31.0-37.0); MCV 80.4 fL (80.0-100.0); Mean Platelet Volume 7.2; Monocytes # (A) 0.5 k/uL (0-1.0); Monocytes % (A) 7 %; Neutrophils # (A) 5.1 k/uL (1.3-7.7); Neutrophils % (A) 67 %; RBC 3.25 m/uL (3.80-5.40); RDW 15.6 % (11.5-15.5); WBC 7.7 k/uL (3.8-10.6); WBC (Perox) 7.43
--- NOTE | 2016-12-18 13:31 | ED ---
General Adult HPI - General Chief complaint: Recheck/Abnormal Lab/Rx Stated complaint: Diff Breathing Time Seen by Provider: 12/18/16 12:54 Source: patient, RN notes reviewed, old records reviewed Mode of arrival: ambulatory Limitations: no limitations - History of Present Illness Initial comments: 56-year-old female presents for evaluation generalized fatigue and weakness. This is been present for weeks to months. She does have a history of chronic anemia. She was seen by her primary care physician supporting had outpatient laboratory studies drawn yesterday noted to have a hemoglobin of 7.4. She does not know her baseline hemoglobin just no she has anemia, and according to the patient this is secondary to lack of production. Denies any symptoms of bleeding, no vaginal no rectal bleeding. No abdominal pain or chest pain. No nausea vomiting or diarrhea. Patient does report some easy bruising. - Related Data Home Medications Medication Instructions Recorded Confirmed ALPRAZolam [Xanax] 1 mg PO QID 03/21/16 12/18/16 Albuterol Inhaler [Ventolin Hfa 2 puff INHALATION RT-Q4H PRN 03/21/16 12/18/16 Inhaler] DULoxetine HCL [Cymbalta] 60 mg PO DAILY 03/21/16 12/18/16 Fluticasone Nasal [place] [Flonase 1 spr EA NOSTRIL DAILY PRN 03/21/16 12/18/16 Nasal Leckrone] HYDROcodone/APAP 10-325MG [[place] 1 tab PO Q6H PRN 03/21/16 12/18/16 10-325] Promethazine [Phenergan] 25 mg PO Q12H PRN 03/21/16 12/18/16 SUMAtriptan SUCCINATE [Imitrex] 100 mg PO DAILY PRN 03/21/16 12/18/16 carBAMazepine [TEGretol] 400 mg PO Q12H 03/21/16 12/18/16 hydrOXYzine HCL [Atarax] 50 mg PO TID PRN 03/21/16 12/18/16 Bisacodyl [Dulcolax] 10 mg PO DAILY PRN 04/17/16 12/18/16 Zolpidem [Ambien] 10 mg PO HS PRN 04/24/16 12/18/16 Aspirin 325 mg PO QID PRN 12/18/16 12/18/16 Cyclobenzaprine [Flexeril] 10 mg PO DAILY PRN 12/18/16 12/18/16 DULoxetine HCL [Cymbalta] 30 mg PO DAILY 12/18/16 12/18/16 Dicyclomine [Bentyl] 20 mg PO QID 12/18/16 12/18/16 Estradiol [Estrace] 1 mg PO DAILY 12/18/16 12/18/16 Lisinopril [Zestril] 10 mg PO DAILY 12/18/16 12/18/16 Topiramate [Topamax] 100 mg PO BID 12/18/16 12/18/16 Previous Rx's Medication Instructions Recorded amLODIPine [Norvasc] 10 mg PO HS #30 tab 04/29/16 Allergies Allergy/AdvReac Type Severity Reaction Status Date / Time No Known Allergies Allergy Verified 12/18/16 13:31 Review of Systems ROS Statement: Those systems with pertinent positive or pertinent negative responses have been documented in the HPI. ROS Other: All systems not noted in ROS Statement are negative. Past Medical History Past Medical History: Blood Disorder Additional Past Medical History / Comment(s): anxiety, chronic back pain, ulcers , chronic samuel-bladder only holds 100ml per pt."HAD PNE VACCINE 2 YEARS AGO , NOT SURE OF DATE" DR BEKAH ALVAREZ UNABLE TO VERIFY DATE AT TIME OF ADMIT. History of Any Multi-Drug Resistant Organisms: None Reported Past Surgical History: Bariatric Surgery, Bladder Surgery, Cholecystectomy, Hysterectomy Additional Past Surgical History / Comment(s): bladder suspension, gastric bypass, colon volvulus had exporatory lap w/lysis of adhesions and rt colectomy Past Anesthesia/Blood Transfusion Reactions: No Reported Reaction Past Psychological History: Anxiety, Bipolar Smoking Status: Former smoker Past Alcohol Use History: None Reported Past Drug Use History: None Reported - Past Family History Mother Family Medical History: No Reported History Additional Family Medical History / Comment(s): no history Father Family Medical History: No Reported History Additional Family Medical History / Comment(s): from alcoholism General Exam Limitations: no limitations General appearance: alert, in no apparent distress Head exam: Present: atraumatic, normocephalic Eye exam: Present: normal appearance, PERRL ENT exam: Present: normal exam, mucous membranes moist Neck exam: Present: normal inspection. Absent: meningismus Respiratory exam: Present: normal lung sounds bilaterally. Absent: respiratory distress Cardiovascular Exam: Present: regular rate, normal rhythm GI/Abdominal exam: Present: soft. Absent: distended, tenderness Rectal exam: Present: normal inspection, normal rectal tone. Absent: black stool Extremities exam: Present: normal inspection, normal capillary refill. Absent: pedal edema Neurological exam: Present: alert, oriented X3. Absent: motor sensory deficit Psychiatric exam: Present: normal affect, normal mood Skin exam: Present: warm, dry, intact. Absent: cyanosis, diaphoretic Course Vital Signs 12/18/16 12/18/16 12/18/16 12:49 13:22 13:27 Temperature 98.7 F Pulse Rate 101 H 91 Respiratory 24 26 H 18 Rate Blood Pressure 142/71 146/74 O2 Sat by Pulse 97 100 Oximetry 12/18/16 12/18/16 14:27 15:17 Temperature 97.4 F L Pulse Rate 82 82 Respiratory 18 18 Rate Blood Pressure 164/74 151/123 O2 Sat by Pulse 98 96 Oximetry EKG Findings - EKG Comments: EKG Findings:: EKG shows normal sinus rhythm, ventricular rate 93, para 160, QRS duration 102, QTC 447, no ST segment elevation or depression Medical Decision Making - Medical Decision Making 56 yo female presents with chief complaint of generalized weakness and fatigue. Outpatient laboratory studies reveal hemoglobin 7.4. Baseline in March of this year was 11.7. Repeat hemoglobin reveal 7.7. There is no active signs of bleeding, Hemoccult is negative. White blood cell count normal 7.7, there is mild hyponatremia with sodium 132. Troponin negative. Urinalysis is positive for nitrate and 1 wbc, no antibiotics were initiated, urine culture is pending. Patient's generalized weakness likely secondary to anemia. No active signs of bleeding. Patient is given 1 unit of packed RBCs. She will be admitted for further treatment and evaluation. She is placed on 75 mL normal saline per hour for mild hyponatremia. Repeat laboratory studies are ordered for the morning. Diagnosis: Symptomatically anemia - Lab Data Result diagrams: 12/18/16 13:09 12/18/16 13:09 Lab Results 12/18/16 12/18/16 12/18/16 Range/Units 13:09 13:09 13:09 WBC 7.7 (3.8-10.6) k/uL RBC 3.25 L (3.80-5.40) m/uL Hgb 7.7 L (11.4-16.0) gm/dL Hct 26.2 L (34.0-46.0) % MCV 80.4 (80.0-100.0) fL MCH 23.6 L (25.0-35.0) pg MCHC 29.4 L (31.0-37.0) g/dL RDW 15.6 H (11.5-15.5) % Plt Count 389 (150-450) k/uL Neutrophils % 67 % Lymphocytes % 17 % Monocytes % 7 % Eosinophils % 6 % Basophils % 1 % Neutrophils # 5.1 (1.3-7.7) k/uL Lymphocytes # 1.3 (1.0-4.8) k/uL Monocytes # 0.5 (0-1.0) k/uL Eosinophils # 0.4 (0-0.7) k/uL Basophils # 0.1 (0-0.2) k/uL Hypochromasia Marked PT (9.0-12.0) sec INR (<1.2) APTT (22.0-30.0) sec Sodium 132 L (137-145) mmol/L Potassium 4.1 (3.5-5.1) mmol/L Chloride 102 (98-107) mmol/L Carbon Dioxide 19 L (22-30) mmol/L Anion Gap 11 mmol/L BUN 9 (7-17) mg/dL Creatinine 0.60 (0.52-1.04) mg/dL Est GFR (MDRD) Af Amer >60 (>60 ml/min/1.73 sqM) Est GFR (MDRD) Non-Af >60 (>60 ml/min/1.73 sqM) Glucose 164 H (74-99) mg/dL Calcium 8.5 (8.4-10.2) mg/dL Magnesium 1.8 (1.6-2.3) mg/dL Total Bilirubin <0.1 L (0.2-1.3) mg/dL AST 17 (14-36) U/L ALT 31 (9-52) U/L Alkaline Phosphatase 173 H (38-126) U/L Total Creatine Kinase 65 (30-135) U/L CK-MB (CK-2) 0.9 (0.0-2.4) ng/mL CK-MB (CK-2) Rel Index 1.4 Troponin I <0.012 (0.000-0.034) ng/mL Total Protein 6.3 (6.3-8.2) g/dL Albumin 3.7 (3.5-5.0) g/dL Urine Color Urine Appearance (Clear) Urine pH (5.0-8.0) Ur Specific [place] (1.001-1.035) Urine Protein (Negative) Urine Glucose (UA) (Negative) Urine Ketones (Negative) Urine Blood (Negative) Urine Nitrite (Negative) Urine Bilirubin (Negative) Urine Urobilinogen (<2.0) mg/dL Ur Leukocyte Esterase (Negative) Urine WBC (0-5) /hpf Amorphous Sediment (None) /hpf Urine Bacteria (None) /hpf Urine Mucus (None) /hpf Stool Occult Blood (Negative) Blood Type Blood Type Recheck Antibody Screen Crossmatch Spec Expiration Date 12/18/16 12/18/16 12/18/16 Range/Units 13:09 13:09 13:09 WBC (3.8-10.6) k/uL RBC (3.80-5.40) m/uL Hgb (11.4-16.0) gm/dL Hct (34.0-46.0) % MCV (80.0-100.0) fL MCH (25.0-35.0) pg MCHC (31.0-37.0) g/dL RDW (11.5-15.5) % Plt Count (150-450) k/uL Neutrophils % % Lymphocytes % % Monocytes % % Eosinophils % % Basophils % % Neutrophils # (1.3-7.7) k/uL Lymphocytes # (1.0-4.8) k/uL Monocytes # (0-1.0) k/uL Eosinophils # (0-0.7) k/uL Basophils # (0-0.2) k/uL Hypochromasia PT 9.4 (9.0-12.0) sec INR 0.9 (<1.2) APTT 18.8 L (22.0-30.0) sec Sodium (137-145) mmol/L Potassium (3.5-5.1) mmol/L Chloride (98-107) mmol/L Carbon Dioxide (22-30) mmol/L Anion Gap mmol/L BUN (7-17) mg/dL Creatinine (0.52-1.04) mg/dL Est GFR (MDRD) Af Amer (>60 ml/min/1.73 sqM) Est GFR (MDRD) Non-Af (>60 ml/min/1.73 sqM) Glucose (74-99) mg/dL Calcium (8.4-10.2) mg/dL Magnesium (1.6-2.3) mg/dL Total Bilirubin (0.2-1.3) mg/dL AST (14-36) U/L ALT (9-52) U/L Alkaline Phosphatase (38-126) U/L Total Creatine Kinase (30-135) U/L CK-MB (CK-2) (0.0-2.4) ng/mL CK-MB (CK-2) Rel Index Troponin I (0.000-0.034) ng/mL Total Protein (6.3-8.2) g/dL Albumin (3.5-5.0) g/dL Urine Color Urine Appearance (Clear) Urine pH (5.0-8.0) Ur Specific [place] (1.001-1.035) Urine Protein (Negative) Urine Glucose (UA) (Negative) Urine Ketones (Negative) Urine Blood (Negative) Urine Nitrite (Negative) Urine Bilirubin (Negative) Urine Urobilinogen (<2.0) mg/dL Ur Leukocyte Esterase (Negative) Urine WBC (0-5) /hpf Amorphous Sediment (None) /hpf Urine Bacteria (None) /hpf Urine Mucus (None) /hpf Stool Occult Blood Negative (Negative) Blood Type A Positive Blood Type Recheck No Antibody Screen NEGATIVE Crossmatch See Detail Spec Expiration Date 12/21/2016 - 230812/18/16 Range/Units 13:30 WBC (3.8-10.6) k/uL RBC (3.80-5.40) m/uL Hgb (11.4-16.0) gm/dL Hct (34.0-46.0) % MCV (80.0-100.0) fL MCH (25.0-35.0) pg MCHC (31.0-37.0) g/dL RDW (11.5-15.5) % Plt Count (150-450) k/uL Neutrophils % % Lymphocytes % % Monocytes % % Eosinophils % % Basophils % % Neutrophils # (1.3-7.7) k/uL Lymphocytes # (1.0-4.8) k/uL Monocytes # (0-1.0) k/uL Eosinophils # (0-0.7) k/uL Basophils # (0-0.2) k/uL Hypochromasia PT (9.0-12.0) sec INR (<1.2) APTT (22.0-30.0) sec Sodium (137-145) mmol/L Potassium (3.5-5.1) mmol/L Chloride (98-107) mmol/L Carbon Dioxide (22-30) mmol/L Anion Gap mmol/L BUN (7-17) mg/dL Creatinine (0.52-1.04) mg/dL Est GFR (MDRD) Af Amer (>60 ml/min/1.73 sqM) Est GFR (MDRD) Non-Af (>60 ml/min/1.73 sqM) Glucose (74-99) mg/dL Calcium (8.4-10.2) mg/dL Magnesium (1.6-2.3) mg/dL Total Bilirubin (0.2-1.3) mg/dL AST (14-36) U/L ALT (9-52) U/L Alkaline Phosphatase (38-126) U/L Total Creatine Kinase (30-135) U/L CK-MB (CK-2) (0.0-2.4) ng/mL CK-MB (CK-2) Rel Index Troponin I (0.000-0.034) ng/mL Total Protein (6.3-8.2) g/dL Albumin (3.5-5.0) g/dL Urine Color Light Yellow Urine Appearance Clear (Clear) Urine pH 6.0 (5.0-8.0) Ur Specific [place] 1.003 (1.001-1.035) Urine Protein Negative (Negative) Urine Glucose (UA) 1+ H (Negative) Urine Ketones Negative (Negative) Urine Blood Negative (Negative) Urine Nitrite Positive H (Negative) Urine Bilirubin Negative (Negative) Urine Urobilinogen <2.0 (<2.0) mg/dL Ur Leukocyte Esterase Trace H (Negative) Urine WBC 1 (0-5) /hpf Amorphous Sediment Rare H (None) /hpf Urine Bacteria Rare H (None) /hpf Urine Mucus Rare H (None) /hpf Stool Occult Blood (Negative) Blood Type Blood Type Recheck Antibody Screen Crossmatch Spec Expiration Date Disposition Clinical Impression: Symptomatic anemia Disposition: ADMITTED IP TO THIS [facility] Condition: Stable Referrals: Brenden Bolanos MD [Primary Care Provider] - 1-2 days Decision to Admit Reason: Admit from EC Decision Date: 12/18/16 Decision Time: 15:23
[2016-12-18 13:41] LABS: ALT 31 U/L (9-52); AST 17 U/L (14-36); Alkaline Phosphatase 173 U/L (38-126); Anion Gap 11 mmol/L; Blood Urea Nitrogen 9 mg/dL (7-17); Calcium 8.5 mg/dL (8.4-10.2); Carbon Dioxide 19 mmol/L (22-30); Chloride 102 mmol/L (98-107); Glucose 164 mg/dL (74-99); Magnesium 1.8 mg/dL (1.6-2.3); Non-African American GFR(MDRD) >60 (>60 ml/min/1.73 sqM); Potassium 4.1 mmol/L (3.5-5.1); Sodium 132 mmol/L (137-145); Total Bilirubin <0.1 mg/dL (0.2-1.3); Total Protein 6.3 g/dL (6.3-8.2)
[2016-12-18 13:45] LABS: INR 0.9 (<1.2); Prothrombin Time 9.4 sec (9.0-12.0)
[2016-12-18 13:48] LABS: Partial Thromboplastin Time 18.8 sec (22.0-30.0)
[2016-12-18 13:58] LABS: Amorphous Sediment,Urine Rare /hpf; Appearance,Urine Clear (Clear); Bacteria,Urine Rare /hpf; Bilirubin,Urine Negative (Negative); Glucose,Urine (UA) 1+ (Negative); Ketones,Urine Negative (Negative); Leukocyte Esterase,Urine Trace (Negative); Mucus,Urine Rare /hpf; Nitrite,Urine Positive (Negative); Particle Count 5918; Protein,Urine Negative (Negative); Specific Gravity,Urine 1.003 (1.001-1.035); UA Billing (MACRO vs. MICRO) MICRO; Urobilinogen,Urine <2.0 mg/dL (<2.0); WBC,Urine 1 /hpf (0-5)
[2016-12-18 14:00] LABS: Creatine Kinase 65 U/L (30-135)
[2016-12-18 14:14] LABS: Creatine Kinase MB 0.9 ng/mL (0.0-2.4); Troponin I <0.012 ng/mL (0.000-0.034)
[2016-12-18] MEDS ORDERED: NALOXONE 0.4 MG/ML 1 ML VIAL IV PRN (15:18)
[2016-12-18] MEDS ORDERED: ACETAMINOPHEN TAB 325 MG TAB PO PRN (15:18)
[2016-12-18] MEDS ORDERED: TEMAZEPAM 15 MG CAP PO PRN (15:18)
[2016-12-18] MEDS ORDERED: amLODIPine 10 MG TAB PO STA (15:30)
[2016-12-18] MEDS ORDERED: SODIUM CHLORIDE 0.9% 1,000 ML IV SCH (15:30)
[2016-12-18] MEDS ORDERED: ALPRAZolam 0.5 MG TAB PO STA (15:30)
[2016-12-18 17:19] VITALS: BMI 32.8
[2016-12-18] MEDS ORDERED: ZOLPIDEM 10 MG TAB PO PRN (18:35)
[2016-12-18] MEDS ORDERED: hydrOXYzine HCL 25 MG TAB PO PRN (18:35)
[2016-12-18] MEDS ORDERED: PROMETHAZINE 25 MG TAB PO PRN (18:35)
[2016-12-18] MEDS ORDERED: RX INFO: IV CONTRAST WAS GIVEN 1 EACH MISC MISCELLANE PRN (18:49)
--- NOTE | 2016-12-18 19:11 | XR ---
EXAMINATION TYPE: XR chest 2V DATE OF EXAM: 12/18/2016 COMPARISON: NONE HISTORY: Dyspnea TECHNIQUE: Frontal and lateral views of the chest are obtained. FINDINGS: There is no focal air space opacity, pleural effusion, or pneumothorax seen. The cardiac silhouette size is within normal limits. The osseous structures are intact. IMPRESSION: No acute cardiopulmonary process.
--- NOTE | 2016-12-18 20:02 | CT ---
EXAMINATION TYPE: CT angio chest DATE OF EXAM: 12/18/2016 7:32 PM COMPARISON: NONE HISTORY: Shortness of breath and chest discomfort CT DLP: 346 mGycm Automated exposure control for dose reduction was used. CONTRAST: CTA scan of the thorax is performed with IV Contrast, patient injected with 100 mL of Omnipaque 350, pulmonary embolism protocol. . FINDINGS: LUNGS: The lungs are grossly clear, there is no concerning parenchymal mass. In the right midlung zon e anteriorly is a 1 cm calcification, consistent with incidental healed granuloma in the anterior seg ment right upper lobe. There is no pleural effusion or pneumothorax seen. The tracheobronchial tree is patent. MEDIASTINUM: There is satisfactory enhancement of the pulmonary artery and its branches, there is no CT evidence for pulmonary embolism. There are no greater than 1 cm hilar or mediastinal lymph nodes. The heart is unremarkable. No pericardial effusion is seen. OTHER: No additional significant abnormality is seen. IMPRESSION: NO ACUTE PROCESS.
[2016-12-18] MEDS: ALPRAZolam 0.5 MG TAB PO SCH (20:30)
[2016-12-18] MEDS: carBAMazepine 200 MG TAB PO SCH (20:30)
[2016-12-18] MEDS: DICYCLOMINE 20 MG TAB PO SCH (20:30)
[2016-12-18] MEDS: amLODIPine 10 MG TAB PO SCH (20:30)
[2016-12-18] MEDS: TOPIRAMATE 100 MG TAB PO SCH (20:30)
[2016-12-18] MEDS: HYDROcodone/APAP 10-325MG 1 EACH TAB PO PRN (20:31)
--- NOTE | 2016-12-18 20:59 | HP ---
HISTORY AND PHYSICAL DATE OF ADMISSION: 12/18/2016. PRESENTING COMPLAINT: Short of breath. HISTORY OF PRESENTING COMPLAINT: This is a pleasant 56-year-old patient who follows with Dr. Bolanos. Chronic stable medical conditions include anxiety, osteoarthritis, bipolar disorder, hypertension, chronic Storey for a small bladder. She follows with Dr. Spivey for back pain, looking at a TENS unit. Patient presented with a multitude of symptoms; for the last 2 months patient has been noting that she is getting more and more short of breath, getting tired very easily. Patient since March of this year has put on about 60 pounds. The patient also noticed some swelling of the lower extremity. The patient's appetite has been fair. Patient has some tender bruising on the skin, especially in the upper extremity. Sometimes she feels a bit dizzy. Bowels are okay. Denies any blood in the urine. Denies any obvious cough. REVIEW OF SYSTEMS: CONSTITUTIONAL: Weak, tired. Weight gain. HEENT: Occasional dizziness. RESPIRATORY: As above. CARDIOVASCULAR: No chest pain. GASTROINTESTINAL: As above. GENITOURINARY: Has a chronic Storey catheter. DERMATOLOGICAL: Some pain from bruising in the upper extremity. HEMATOLOGICAL: As above. LYMPHATICS: None. PSYCHIATRY: Bipolar. NEUROLOGICAL: No numbness or tingling. MUSCULOSKELETAL: Low back pain. PAST MEDICAL HISTORY: 1. Anxiety. 2. Osteoarthritis. 3. Bipolar. 4. Hypertension. 5. Chronic Storey for a small bladder. 6. Low back pain. PAST SURGICAL HISTORY: 1. Bariatric surgery. 2. Bladder surgery. 3. Cholecystectomy. 4. Hysterectomy. 5. Bladder suspension. 6. Gastric bypass. 7. Colon volvulus; had exploratory laparotomy with lysis of adhesions and right colectomy. SOCIAL HISTORY: Started smoking at the age of 16 and smoked 2 packs a day for 22 years. No alcohol. Lives by herself. FAMILY HISTORY: Reviewed; noncontributory to presentation. HOME MEDICATIONS: 1. Atarax 50 mg p.o. t.i.d. p.r.n. 2. Tegretol 400 mg p.o. q.12. 3. Norvasc 10 mg p.o. at bedtime. 4. Ambien 10 mg p.o. at bedtime p.r.n. 5. Topamax 100 mg p.o. b.i.d. 6. Imitrex 100 mg p.o. daily p.r.n. 7. Phenergan 25 mg q.12 p.r.n. 8. Zestril 10 mg p.o. daily. 9. [place] 10 one tablet q.6 p.r.n. 10.Flonase 1 spray each nostril daily p.r.n. 11.Estrace 1 mg p.o. daily. 12.Bentyl 20 mg p.o. q.i.d. 13.Cymbalta 90 mg p.o. daily. 14.Flexeril 10 mg p.o. daily p.r.n. 15.Dulcolax 10 mg p.o. daily. 16.Aspirin 325 p.o. q.i.d. p.r.n. 17.Ventolin HFA 2 puffs q.4 p.r.n. 18.Xanax 1 mg p.o. q.i.d. ALLERGIES: NONE. PHYSICAL EXAMINATION: VITAL SIGNS ON PRESENTATION: Temperature 97.4, pulse 82, respiratory rate 18, blood pressure 151/123, pulse ox 96% on 2 L. GENERAL APPEARANCE: Well built; BMI 32.8. Sitting up. Slightly short of breath. EYES: Pupils equal.. Conjunctivae normal. HEENT: Oral cavity normal. NECK: JVD not raised. Mass not palpable. RESPIRATORY: Effort normal. LUNGS: Fair air entry. CARDIOVASCULAR: First and second sounds normal with minimal edema. ABDOMEN: Soft, nontender. Liver and spleen not palpable. LYMPHATIC: No lymph node palpable in neck or axillae. PSYCHIATRY: Alert and oriented x3. Mood and affect slightly anxious-appearing. DERMATOLOGICAL: Areas of reddened and discolored skin and very slight tenderness involving the upper extremity. Irregular borders, macular in nature. INVESTIGATIONS: White count 7.7, hemoglobin 7.7, platelets 389. Pro time 9.4. Potassium 4.1, bicarb 19. BUN and creatinine are normal. Troponin negative. UA positive for glucose, negative for protein. ASSESSMENT: 1. This is a patient who has a multitude of symptoms, including shortness of breath, going on for 6 months, about a 60-pound weight gain, painful bruising on the upper extremity, headache, dizziness; could be dealing with an autoimmune disorder here. 2. Because of shortness of breath, will rule out pulmonary embolism. 3. Bipolar disorder. 4. Essential hypertension. 5. Primary osteoarthritis in multiple joints, bilateral. 6. Chronic Storey catheter for a small bladder. 7. Chronic low back pain. PLAN: At this point we will do a D-dimer and also do a CT of the chest. Will also check patient's thyroid function to make sure patient is not hypothyroid. Will also send off an ESR, CRP and antinuclear antibodies. Will do a plain chest x-ray and order a 2D echocardiogram. Care was discussed with the patient. MMODL / IJN: [id number] /
[2016-12-18] MEDS: CYCLOBENZAPRINE 10 MG TAB PO PRN (21:00)
[2016-12-19] MEDS: HYDROcodone/APAP 10-325MG 1 EACH TAB PO PRN ×3 (03:24→22:17)
[2016-12-19 06:16] LABS: Anisocytosis Slight; Basophils # (A) 0.1 k/uL (0-0.2); Basophils % (A) 1 %; CH 24.1; CHCM 30.4; Eosinophils # (A) 0.4 k/uL (0-0.7); Eosinophils % (A) 7 %; HCT 28.9 % (34.0-46.0); HDW 3.85; HGB 8.3 gm/dL (11.4-16.0); Hypochromasia Marked; Luc # (Auto) 0.12; Luc % (Auto) 2; Lymphocytes # (A) 0.9 k/uL (1.0-4.8); Lymphocytes % (A) 18 %; MCH 23.1 pg (25.0-35.0); MCHC 28.9 g/dL (31.0-37.0); MCV 79.7 fL (80.0-100.0); Mean Platelet Volume 7.2; Monocytes # (A) 0.4 k/uL (0-1.0); Monocytes % (A) 8 %; Neutrophils # (A) 3.4 k/uL (1.3-7.7); Neutrophils % (A) 64 %; Poikilocytosis Slight; RBC 3.62 m/uL (3.80-5.40); RDW 16.4 % (11.5-15.5); WBC 5.3 k/uL (3.8-10.6)
[2016-12-19 06:26] LABS: ALT 29 U/L (9-52); AST 15 U/L (14-36); Alkaline Phosphatase 168 U/L (38-126); Anion Gap 8 mmol/L; Blood Urea Nitrogen 8 mg/dL (7-17); Calcium 8.8 mg/dL (8.4-10.2); Carbon Dioxide 22 mmol/L (22-30); Chloride 103 mmol/L (98-107); Glucose 93 mg/dL (74-99); Non-African American GFR(MDRD) >60 (>60 ml/min/1.73 sqM); Potassium 5.3 mmol/L (3.5-5.1); Sodium 133 mmol/L (137-145); Total Bilirubin 0.2 mg/dL (0.2-1.3); Total Protein 6.1 g/dL (6.3-8.2)
[2016-12-19] MEDS: ESTRADIOL 0.5 MG TAB PO SCH (08:23)
[2016-12-19] MEDS: DULoxetine HCL 60 MG CAPSULE.DR PO SCH (08:24)
[2016-12-19] MEDS: LISINOPRIL 10 MG TAB PO SCH (08:24)
[2016-12-19] MEDS: carBAMazepine 200 MG TAB PO SCH ×2 (08:24→22:18)
[2016-12-19] MEDS: TOPIRAMATE 100 MG TAB PO SCH ×2 (08:24→22:19)
[2016-12-19] MEDS: ALPRAZolam 0.5 MG TAB PO SCH ×4 (08:24→22:19)
[2016-12-19] MEDS: DICYCLOMINE 20 MG TAB PO SCH ×4 (08:24→22:19)
[2016-12-19] MEDS ORDERED: SUMAtriptan SUCCINATE 50 MG TAB PO PRN (09:00)
[2016-12-19] MEDS ORDERED: SUMAtriptan SUCCINATE 50 MG TAB PO STA ×2 (09:07→09:59)
[2016-12-19] MEDS: PANTOPRAZOLE 40 MG/10 ML VIAL IV SCH (09:59)
[2016-12-19] MEDS: DULoxetine HCL 30 MG CAPSULE.DR PO SCH (09:59)
--- NOTE | 2016-12-19 11:04 | ECHOF ---
Referral Reason: MEASUREMENTS -------- HEIGHT: 154.9 cm WEIGHT: 78.5 kg BP: 127/75 RVIDd: 1.9 cm (< 3.3) IVSd: 1.0 cm (0.6 - 1.1) LVIDd: 4.5 cm (3.9 - 5.3) LVPWd: 1.1 cm (0.6 - 1.1) IVSs: 1.2 cm LVIDs: 3.6 cm LVPWs: 1.3 cm LAESV Index (A-L): 33.32 ml/m Ao Diam: 3.1 cm (2.0 - 3.7) AV Cusp: 2.0 cm (1.5 - 2.6) LA Diam: 3.4 cm (2.7 - 3.8) MV EXCURSION: 19.436 mm (> 18.000) MV EF SLOPE: 94 mm/s (70 - 150) EPSS: 1.2 cm MV E Omar: 0.67 m/s MV DecT: 275 ms MV A Omar: 1.00 m/s MV E/A Ratio: 0.67 AR PHT: 996 ms FINDINGS -------- Sinus rhythm. This was a technically adequate study. Pt. Has Breast inplants The left ventricular size is normal. Left ventricular wall thickness is normal. Overall left ventricular systolic function is normal with, an EF between 55 - 60 %. The right ventricle is normal in size and function. LA is midly dilated 29-33ml/m2. The right atrium is normal in size. Aortic valve is trileaflet and is mildly thickened. There is mild aortic regurgitation. The aortic pressure half-time by doppler is 996ms. There is no evidence of aortic stenosis. The mitral valve leaflets are mildly thickened. There is trace mitral regurgitation. Trace tricuspid regurgitation present. The pulmonic valve was not well visualized. The aortic root size is normal. Normal inferior vena cava with normal inspiratory collapse consistent with estimated right atrial pressure of 5 mmHg. The pericardium is normal. There is no pericardial effusion. CONCLUSIONS -------- 1. Sinus rhythm. 2. The mitral valve leaflets are mildly thickened. 3. There is trace mitral regurgitation. 4. Trace tricuspid regurgitation present. 5. The pulmonic valve was not well visualized. 6. The aortic root size is normal. 7. There is no pericardial effusion. 8. This was a technically adequate study. 9. Pt. Has Breast inplants 10. The left ventricular size is normal. 11. Overall left ventricular systolic function is normal with, an EF between 55 - 60 %. 12. LA is midly dilated 29-33ml/m2. 13. Aortic valve is trileaflet and is mildly thickened. 14. There is mild aortic regurgitation. 15. The aortic pressure half-time by doppler is 996ms. EDITOR IN CHIEF: Martin Goddard RDCS
--- NOTE | 2016-12-19 18:18 | PN ---
PROGRESS NOTE DATE OF SERVICE: 12/19/2016. PRESENT COMPLAINT: Short of breath. INTERVAL HISTORY: This is a patient who presents with multitude of symptoms. Ct scan, PE is ruled out. Patient feels a bit better. Psychiatry was consulted to check into if this anxiety causing the symptoms. The patient states she is overall feeling better. REVIEW OF SYSTEMS: Done for constitutional, cardiovascular, GI, pulmonary; relevant findings as above. CURRENT MEDICATIONS: Current medications are resumed. PHYSICAL EXAMINATION: Temperature 98, pulse 88, respiratory rate 18, blood pressure 159/81, pulse of 96% room air. GENERAL APPEARANCE: Sitting up, comfortable. EYES: Pupils equal. Conjunctivae normal. NECK: JVD not raised. Mass not palpable. RESPIRATORY: Effort normal. LUNGS: Fair air entry. CARDIOVASCULAR: First and second sounds normal. No edema. ABDOMEN: Soft, nontender. PSYCHIATRY: Alert and oriented x3. Slightly anxious appearing. INVESTIGATIONS: White count 5.3, hemoglobin 8.3, ESR is 26, D-dimer 0.47, BUN 8, creatinine 0.50, troponin times 1 negative. C-reactive protein normal at 5.6. TSH is normal. Chest CTA is unremarkable. 2D echocardiogram unremarkable. ASSESSMENT: 1. Bipolar disorder. 2. Essential hypertension. 3. Primary osteoarthritis of multiple joints, bilateral. 4. Chronic Storey catheter for a small bladder. 5. Chronic low back pain, probably from arthritis. PLAN: Hypothyroid has been ruled out. PE has been ruled out. 2D echocardiogram was unremarkable. Will get a pulmonary opinion to make sure there is nothing else is going on. Patient may have a significant anxiety component. Care was discussed with the patient. MMODL / IJN: [id number] /
[2016-12-19] MEDS ORDERED: RX INFO: IV CONTRAST WAS GIVEN 1 EACH MISC MISCELLANE PRN (18:54)
--- NOTE | 2016-12-19 18:55 | P.CNPUL ---
History of Present Illness Consult date: 12/19/16 Reason for consult: dyspnea History of present illness: A 56-year-old female patient who was admitted to the hospital because of worsening shortness of breath. I was asked to evaluate this patient for dyspnea. She denies having any cough sputum production chest tightness or wheezing. No pleurisy. No hemoptysis. No angina. No swelling lower extremities. She is a nonsmoker and she does not have any previous history of lung disease or disorders. CT angios the chest was done that showed no evidence of any pulmonary embolism and there was no parenchymal lung abnormalities. Echocardiogram is also within normal without any valvular heart disease and the patient has a normal LV function without evidence of any pulmonary hypertension. The patient was noted to have a drop in hemoglobin down to 7.7. This is a new onset anemia knowing that the patient's previous hemoglobin from earlier this year was as high as 13.0. Denies having any GI bleeding. No melanotic stool. No hematemesis. No abdominal distention. No previous history of hemolysis. No history of any vaginal bleeding. The patient has a chronic history of iron deficiency. She has received IV iron transfusions in the past. She has also received packed RBC transfusions. The unit of blood that was given to her during this current admission maintenance less short of breath. The patient has undergone gastric bypass surgery many years back. She has also undergone previous colon surgery for obstruction. Her MCV is low and there is potentially possibility of iron deficiency. Stool for occult was negative. Urinalysis negative. Rest of the electrodes are all negative. The cardiac enzyme is also negative. Patient has been fluctuating in her weight. At one point she is to wait 260 pounds and she underwent. It surgery and she lost weight significantly and she was around 200 pounds. Currently she is 60 pounds up. No signs of any fluid overload. No lower extremity edema. Review of Systems Constitutional: Reports fatigue, Reports weight gain Eyes: denies blurred vision, denies bulging eye, denies decreased vision Ears: deny: decreased hearing, ear discharge, earache Ears, nose, mouth and throat: Denies headache, Denies sore throat Cardiovascular: Reports decreased exercise tolerance, Reports dyspnea on exertion, Reports shortness of breath Respiratory: Reports dyspnea Gastrointestinal: Denies abdominal pain, Denies diarrhea, Denies nausea, Denies vomiting Genitourinary: Denies dysuria, Denies hematuria Musculoskeletal: Denies myalgias Musculoskeletal: absent: ankle pain, ankle stiffness, ankle swelling Integumentary: Denies pruritus, Denies rash Neurological: Denies numbness, Denies weakness Psychiatric: Denies anxiety, Denies depression Endocrine: Denies fatigue, Denies weight change Past Medical History Past Medical History: Blood Disorder, Hypertension Additional Past Medical History / Comment(s): Obesity with previous bariatric surgery, fluctuating body weight, general anxiety disorder, bipolar disorder, hypertension, chronic back pain, history of iron deficiency, history of anemia History of Any Multi-Drug Resistant Organisms: None Reported Past Surgical History: Bariatric Surgery, Bladder Surgery, Cholecystectomy, Hysterectomy Additional Past Surgical History / Comment(s): bladder suspension, gastric bypass, colon volvulus had exporatory lap w/lysis of adhesions and rt colectomy Past Anesthesia/Blood Transfusion Reactions: No Reported Reaction Past Psychological History: Anxiety, Bipolar, Depression Smoking Status: Former smoker Past Alcohol Use History: None Reported Additional Past Alcohol Use History / Comment(s): started smoking at age 16(1976 ) smoked 2 ppd, quit 1998 Past Drug Use History: None Reported - Past Family History Mother Family Medical History: No Reported History Additional Family Medical History / Comment(s): no history Father Family Medical History: No Reported History Additional Family Medical History / Comment(s): from alcoholism Medications and Allergies Home Medications Medication Instructions Recorded Confirmed Type ALPRAZolam [Xanax] 1 mg PO QID 03/21/16 12/18/16 History Albuterol Inhaler [Ventolin Hfa 2 puff INHALATION RT-Q4H PRN 03/21/16 12/18/16 History Inhaler] DULoxetine HCL [Cymbalta] 60 mg PO DAILY 03/21/16 12/18/16 History Fluticasone Nasal [place] [Flonase 1 spr EA NOSTRIL DAILY PRN 03/21/16 12/18/16 History Nasal [place]] HYDROcodone/APAP 10-325MG [[place] 1 tab PO Q6H PRN 03/21/16 12/18/16 History 10-325] Promethazine [Phenergan] 25 mg PO Q12H PRN 03/21/16 12/18/16 History SUMAtriptan SUCCINATE [Imitrex] 100 mg PO DAILY PRN 03/21/16 12/18/16 History carBAMazepine [TEGretol] 400 mg PO Q12H 03/21/16 12/18/16 History hydrOXYzine HCL [Atarax] 50 mg PO TID PRN 03/21/16 12/18/16 History Bisacodyl [Dulcolax] 10 mg PO DAILY PRN 04/17/16 12/18/16 History Zolpidem [Ambien] 10 mg PO HS PRN 04/24/16 12/18/16 History amLODIPine [Norvasc] 10 mg PO HS #30 tab 04/29/16 12/18/16 Rx Aspirin 325 mg PO QID PRN 12/18/16 12/18/16 History Cyclobenzaprine [Flexeril] 10 mg PO DAILY PRN 12/18/16 12/18/16 History DULoxetine HCL [Cymbalta] 30 mg PO DAILY 12/18/16 12/18/16 History Dicyclomine [Bentyl] 20 mg PO QID 12/18/16 12/18/16 History Estradiol [Estrace] 1 mg PO DAILY 12/18/16 12/18/16 History Lisinopril [Zestril] 10 mg PO DAILY 12/18/16 12/18/16 History Topiramate [Topamax] 100 mg PO BID 12/18/16 12/18/16 History Allergies Allergy/AdvReac Type Severity Reaction Status Date / Time No Known Allergies Allergy Verified 12/18/16 13:31 Physical Exam Vitals: Vital Signs Temp Pulse Resp BP Pulse Ox 12/19/16 16:00 88 18 12/19/16 15:41 98.0 F 88 18 159/81 96 12/19/16 12:00 99 18 12/19/16 08:00 97.9 F 99 18 158/86 98 12/19/16 03:42 76 16 12/19/16 03:37 98.4 F 85 16 127/75 97 12/18/16 23:24 84 16 12/18/16 20:00 86 16 12/18/16 19:26 98.3 F 94 16 179/80 100 Intake and Output 12/19/16 12/19/16 12/19/16 06:59 14:59 22:59 Intake Total 980 300 Output Total 450 Balance -450 980 300 Intake: Oral 980 300 Output: Urine 450 Other: Voiding Method Indwelling Catheter Indwelling Catheter Indwelling Catheter The patient appeared well nourished and normally developed. Vital signs as documented. Head exam is unremarkable. No scleral icterus or corneal arcus noted. Neck is without jugular venous distension, thyromegaly, or carotid bruits. Carotid upstrokes are brisk bilaterally. Lungs are clear to auscultation and percussion. Cardiac exam reveals the PMI to be normally sized and situated. Rhythm is regular. First and second heart sounds normal. No murmurs, rubs or gallops. Abdominal exam reveals normal bowel sounds, no masses , no organomegaly and no aortic enlargement. There is a scar of previous abdominal surgery over the anterior abdominal wall. No masses could be palpated.. Extremities are nonedematous and both femoral and pedal pulses are normal. Neurologically she is awake and alert and there is no focal neurological deficits. Skin examination is negative for ulcers wounds or cellulitis. Skeletal examination is negative for arthritis or joint swelling or deformities. Results - Laboratory Findings CBC and BMP: 12/19/16 05:50 12/19/16 05:50 PT/INR, D-dimer PT 9.4 sec (9.0-12.0) 12/18/16 13:09 INR 0.9 (<1.2) 12/18/16 13:09 D-Dimer 0.47 mg/L FEU (<0.60) 12/18/16 19:36 Abnormal lab findings: Abnormal Labs 12/18/16 12/18/16 12/18/16 13:09 13:09 13:09 RBC 3.25 L Hgb 7.7 L Hct 26.2 L MCV MCH 23.6 L MCHC 29.4 L RDW 15.6 H Lymphocytes # ESR APTT 18.8 L Sodium 132 L Potassium Carbon Dioxide 19 L Creatinine Glucose 164 H Total Bilirubin <0.1 L Alkaline Phosphatase 173 H Total Protein Urine Glucose (UA) Urine Nitrite Ur Leukocyte Esterase Amorphous Sediment Urine Bacteria Urine Mucus Crossmatch 12/18/16 12/18/16 12/18/16 13:09 13:30 19:36 RBC Hgb Hct MCV MCH MCHC RDW Lymphocytes # ESR 26 H APTT Sodium Potassium Carbon Dioxide Creatinine Glucose Total Bilirubin Alkaline Phosphatase Total Protein Urine Glucose (UA) 1+ H Urine Nitrite Positive H Ur Leukocyte Esterase Trace H Amorphous Sediment Rare H Urine Bacteria Rare H Urine Mucus Rare H Crossmatch See Detail 12/19/16 12/19/16 05:50 05:50 RBC 3.62 L Hgb 8.3 L Hct 28.9 L MCV 79.7 L MCH 23.1 L MCHC 28.9 L RDW 16.4 H Lymphocytes # 0.9 L ESR APTT Sodium 133 L Potassium 5.3 H Carbon Dioxide Creatinine 0.50 L Glucose Total Bilirubin Alkaline Phosphatase 168 H Total Protein 6.1 L Urine Glucose (UA) Urine Nitrite Ur Leukocyte Esterase Amorphous Sediment Urine Bacteria Urine Mucus Crossmatch - Diagnostic Findings CT scan - chest: image reviewed Assessment and Plan Plan: Assessment 1 exertional dyspnea, most likely on the basis of anemia. Noted the patient's hemoglobin was essentially within normal limits and the beginning of the year and she has dropped her hemoglobin to a significantly low level of 7.7. She has been transfused with a unit of packed RBC. She has low MCV. Strongly suspect iron deficiency. Other vitamin deficiency including B12 for deficiencies need to be ruled out especially with her previous gastric surgeries. Her recent 60 pounds with commands also contributes to her shortness of breath. No obvious pulmonary or cardiac causes for dyspnea. 2 previous history of obesity with bariatric surgery/gastric bypass surgery 3 previous history of right colectomy for colonic volvulus 4 generalized anxiety disorder 5 bipolar disorder 6 hypertension 7 chronic back pain Plan Check iron studies. Check B12 levels. Check folate. Hematology consultation for possible IV iron supplementation now and probably two-stage on outpatient basis. CAT scan of the abdomen and pelvis to make sure there is no gastrointestinal source of blood loss or iron deficiency. No active pulmonary issues for now and her shortness of breath is probably secondary to the above- mentioned. No evidence of hemolysis.
[2016-12-19 19:30] LABS: Iron 46 ug/dL (37-170)
[2016-12-19] MEDS: IOHEXOL 350 MG/ML 25 ML BOTTLE (ORAL USE) PO PRN ×2 (19:42→20:28)
[2016-12-19 20:20] LABS: Vitamin B12 174 pg/mL (239-931)
--- NOTE | 2016-12-19 21:25 | CT ---
EXAMINATION TYPE: CT abdomen pelvis w con DATE OF EXAM: 12/19/2016 COMPARISON: 04/24/2016 HISTORY: Anemia. CT DLP: 796 mGycm Automated exposure control for dose reduction was used. TECHNIQUE: Helical acquisition of images was performed from the lung bases through the pelvis. CONTRAST: Performed with Oral Contrast and with IV Contrast, patient injected with 100 mL of Omnipaque 300. FINDINGS: Lung bases are clear. There is no pleural effusion. There are bilateral breast implants. There is no pericardial effusion. There is dilation of the biliary tree. There are clips from cholecystectomy. The common bile duct rosalinda sures 13 mm. Common hepatic duct measures 1.5 cm. There is no evidence of a pancreatic mass. There ar e surgical clips from bariatric surgery. Spleen appears normal. There is no adrenal mass. Kidneys show satisfactory contrast opacification. There is no hydronephrosi s. There is cortical thinning in the lower pole of the right kidney. There is no retroperitoneal josé miguel opathy. There is no ascites. I see no intestinal wall thickening. There are no dilated loops. There i s a Storey catheter in the urinary bladder. There is no evidence of bowel obstruction. I see no bony d estructive process. IMPRESSION: CHRONICALLY DILATED BILIARY TREE SIMILAR TO CT SCAN OF 03/21/2016. CORTICAL THINNING IN THE LOWER POLE RIGHT KIDNEY PROBABLY IS DUE TO CHRONIC PYELONEPHRITIS THAT IS AL SO UNCHANGED. CHANGES OF BARIATRIC SURGERY ON THE STOMACH. NO SIGN OF ACUTE ABDOMEN AND PELVIS.
[2016-12-19] MEDS: amLODIPine 10 MG TAB PO SCH (22:19)
[2016-12-19 23:42] VITALS: RESP 16
[2016-12-20] MEDS: CYCLOBENZAPRINE 10 MG TAB PO PRN (00:39)
[2016-12-20 01:00] LABS: Iron Saturation 10.14 (12.00-45.00)
[2016-12-20 07:08] VITALS: BP 138/89; PULSE 94; TEMP 97.7
[2016-12-20] MEDS: PANTOPRAZOLE 40 MG/10 ML VIAL IV SCH (09:08)
[2016-12-20] MEDS: DULoxetine HCL 60 MG CAPSULE.DR PO SCH (09:09)
[2016-12-20] MEDS: carBAMazepine 200 MG TAB PO SCH (09:09)
[2016-12-20] MEDS: LISINOPRIL 10 MG TAB PO SCH (09:09)
[2016-12-20] MEDS: ALPRAZolam 0.5 MG TAB PO SCH (09:09)
[2016-12-20] MEDS: DICYCLOMINE 20 MG TAB PO SCH (09:09)
[2016-12-20] MEDS: ESTRADIOL 0.5 MG TAB PO SCH (09:09)
[2016-12-20] MEDS: TOPIRAMATE 100 MG TAB PO SCH (09:09)
[2016-12-20] MEDS: DULoxetine HCL 30 MG CAPSULE.DR PO SCH (09:09)
[2016-12-20] MEDS: HYDROcodone/APAP 10-325MG 1 EACH TAB PO PRN (09:13)
[2016-12-20] MEDS ORDERED: SODIUM FERRIC GLUCONAT-SUCROSE 125 MG in SODIUM CHLORIDE 0.9% 100 ML IVPB ONE (10:47)
--- NOTE | 2016-12-20 18:40 | DS ---
DISCHARGE SUMMARY DATE OF ADMISSION: 12/19/2016. DATE OF DISCHARGE: 12/20/2016 FINAL DIAGNOSES: 1. Short of breath from anemia. 2. Bipolar disorder, controlled. 3. Essential hypertension. 4. Primary osteoarthritis multiple joints, bilateral. 5. Chronic Storey catheter for a small bladder. 6. Chronic low back pain likely arthritis. 7. Microcytic anemia. HOSPITAL COURSE: This patient presented which shortness of breath. Chest CTA was negative for PE. 2D echocardiogram showed preserved LV function. EF 55-60%. Patient did have a CT scan of the abdomen and pelvis. That did not show any acute manifestation. Patient later on did tell me that she has been worked up for low anemia by Oncologist back in [place]. No cause was found. Patient has microcytic anemia with low iron reserves. The patient is given IV iron today. The patient's antinuclear antibody was negative. TSH was normal. The patient's folate level was normal. The patient has good microcytic anemia. The patient did have a colonoscopy and EGD that was negative she says about 3 years ago. I will have patient follow up with Dr. Moran as an outpatient. If he feels the need, then possible further endoscopy can be done. Care was discussed in detail with the patient. We also discussed with Dr. Stanley earlier today. EXAMINATION: Lungs are clear. Cardiovascular: First and second sounds are normal. DISCHARGE MEDICATIONS: 1. Xanax 1 mg p.o. q.i.d. 2. Ventolin HFA 2 puffs q.4h p.r.n. 3. Cymbalta 60 mg a day. 4. Flonase 1 spray each nostril daily p.r.n. 5. [place] 10 q.6h p.r.n. 6. Phenergan 25 mg p.o. q.12 p.r.n. 7. Imitrex 100 mg p.o. daily. 8. 400 mg p.o. q.12. 9. Atarax 50 mg p.o. t.i.d. p.r.n. 10.Dulcolax 10 mg p.o. daily. 11.Ambien 10 mg p.o. q.h.s. p.r.n. 12.Norvasc 10 mg p.o. q.h.s. 13.Aspirin 325 mg p.o. q.i.d. p.r.n. 14.Flexeril 10 mg p.o. daily p.r.n. 15.Cymbalta 30 mg p.o. daily. 16.Bentyl 20 mg p.o. q.i.d. 17.Estrace 1 mg p.o. daily. 18.Zestril 10 mg p.o. daily. 19.Topamax 100 mg p.o. b.i.d. Follow up with Dr. Moran in [address] Bolanos in 1 week. Discharge planning more than 35 minutes. MMODL / IJN: [id number] /
== END 2016-12-20 11:52 | disposition home or self-care (01) ==
LOC: EC 12:27 → 3OBS 15:18
PROVIDERS: ADMIT Hospitalist; ATTEND Hospitalist
DX: D50.9 Iron deficiency anemia, unspecified (principal); F31.9 Bipolar disorder, unspecified; F41.1 Generalized anxiety disorder; M15.9 Polyosteoarthritis, unspecified; I10 Essential (primary) hypertension; E87.1 Hypo-osmolality and hyponatremia; G89.29 Other chronic pain; E66.9 Obesity, unspecified; Z98.84 Bariatric surgery status; Z87.891 Personal history of nicotine dependence; Z79.899 Other long term (current) drug therapy; Z79.890 Hormone replacement therapy; Z90.49 Acquired absence of other specified parts of digestive tract
CPT/HCPCS: 36415; 71020; 71275; 74177; 80053; 81001; 82272; 82550; 82553; 82607; 82728; 82746; 83540; 83550; 83735; 84443; 84484; 85025; 85379; 85610; 85652; 85730; 86038; 86140; 86850; 86900; 86901; 86920; 87077; 87086; 87186; 93005; 93306; 96361; 96374; 96376; 99285

== ENCOUNTER 2017-10-20 08:51 | Inpatient (IN) | payer MEDICARE, OTHER ==
[2017-10-20] MEDS ORDERED: SODIUM CHLORIDE 0.9% 2,000 ML IV STA (09:08)
--- NOTE | 2017-10-20 09:12 | ED ---
Female Urogenital HPI - General Source: patient, RN notes reviewed Mode of arrival: ambulatory Limitations: no limitations <Abdulaziz Cook - Last Filed: 10/20/17 10:29> <Rivera Schwarz - Last Filed: 10/20/17 10:38> - General Chief complaint: Urogenital Stated complaint: UTI Time Seen by Provider: 10/20/17 09:00 - History of Present Illness Initial comments: 56-year-old female presents emergency Department chief complaint of abdominal pain and back pain. Patient states that she wears a catheter chronically secondary to bladder mesh surgery. Patient states that she wears catheter and sometimes has to self cath. She states that she was not getting much drainage so she self cathed last night and noticed that there was pus and blood. She states that she's been having on and off urinary tract infection since June. Patient states that she feels very ill at this time. She admits to some nausea no vomiting no diarrhea no constipation. Denies chest pain shortness of breath. (Abdulaziz Cook) - Related Data Home Medications Medication Instructions Recorded Confirmed ALPRAZolam [Xanax] 1 mg PO QID 03/21/16 10/20/17 Albuterol Inhaler [Ventolin Hfa 2 puff INHALATION RT-Q4H PRN 03/21/16 10/20/17 Inhaler] DULoxetine HCL [Cymbalta] 60 mg PO DAILY 03/21/16 10/20/17 HYDROcodone/APAP 10-325MG [[place] 1 tab PO Q6H PRN 03/21/16 10/20/17 10-325] SUMAtriptan SUCCINATE [Imitrex] 100 mg PO DAILY PRN 03/21/16 10/20/17 carBAMazepine [TEGretol] 400 mg PO Q12H 03/21/16 10/20/17 Zolpidem [Ambien] 10 mg PO HS PRN 04/24/16 10/20/17 Cyclobenzaprine [Flexeril] 10 mg PO DAILY PRN 12/18/16 10/20/17 DULoxetine HCL [Cymbalta] 30 mg PO DAILY 12/18/16 10/20/17 Lisinopril [Zestril] 10 mg PO DAILY 12/18/16 10/20/17 Topiramate [Topamax] 100 mg PO BID 12/18/16 10/20/17 Previous Rx's Medication Instructions Recorded amLODIPine [Norvasc] 10 mg PO HS #30 tab 04/29/16 Allergies Allergy/AdvReac Type Severity Reaction Status Date / Time No Known Allergies Allergy Verified 10/20/17 09:00 Review of Systems ROS Other: All systems not noted in ROS Statement are negative. <JoeyAbdulaziz Edgar - Last Filed: 10/20/17 10:29> ROS Other: All systems not noted in ROS Statement are negative. <Rivera Schwarz - Last Filed: 10/20/17 10:38> ROS Statement: Those systems with pertinent positive or pertinent negative responses have been documented in the HPI. Past Medical History Past Medical History: Blood Disorder, Hypertension Additional Past Medical History / Comment(s): Obesity with previous bariatric surgery, fluctuating body weight, general anxiety disorder, bipolar disorder, hypertension, chronic back pain, history of iron deficiency, history of anemia History of Any Multi-Drug Resistant Organisms: None Reported Past Surgical History: Bariatric Surgery, Bladder Surgery, Cholecystectomy, Hysterectomy Additional Past Surgical History / Comment(s): bladder suspension, gastric bypass, colon volvulus had exporatory lap w/lysis of adhesions and rt colectomy Past Anesthesia/Blood Transfusion Reactions: No Reported Reaction Past Psychological History: Anxiety, Bipolar, Depression Smoking Status: Former smoker Past Alcohol Use History: None Reported Past Drug Use History: None Reported - Past Family History Mother Family Medical History: No Reported History Additional Family Medical History / Comment(s): no history Father Family Medical History: No Reported History Additional Family Medical History / Comment(s): from alcoholism <JoeyAbdulaziz Hernández - Last Filed: 10/20/17 10:29> General Exam Limitations: no limitations General appearance: alert, in no apparent distress Respiratory exam: Present: normal lung sounds bilaterally. Absent: respiratory distress, wheezes, rales, rhonchi, stridor Cardiovascular Exam: Present: normal rhythm, tachycardia, normal heart sounds. Absent: systolic murmur, diastolic murmur, rubs, gallop, clicks GI/Abdominal exam: Present: soft, tenderness (Moderate suprapubic tenderness), normal bowel sounds. Absent: distended, guarding, rebound, rigid Back exam: Present: CVA tenderness (R), CVA tenderness (L) Skin exam: Present: warm, dry, intact, normal color. Absent: rash <JoeyAbdulaziz Hernández - Last Filed: 10/20/17 10:29> Course <Abdulaziz Cook - Last Filed: 10/20/17 10:29> <Rivera Schwarz - Last Filed: 10/20/17 10:38> Vital Signs 10/20/17 10/20/17 08:51 10:25 Temperature 97.6 F Pulse Rate 133 H 109 H Respiratory 20 18 Rate Blood Pressure 122/86 139/72 O2 Sat by Pulse 99 99 Oximetry - Reevaluation(s) Reevaluation #1: 10/20/17 10:38 I did personally see the patient and examined the patient. I reviewed and agree with the PA findings including all diagnostic interpretations and treatment plans is written was otherwise stated. I did discuss case Dr. Pantoja. Patient will be admitted for evaluation. Patient did receive IV fluids and IV antibiotics. Her heart rate he has improved markedly. She still has some mild abdominal pain she has some nonspecific tenderness to palpation with no guarding or rebound. She denies any alcohol use. She is status post cholecystectomy. (Rivera Schwarz) Medical Decision Making - Lab Data Result diagrams: 10/20/17 09:31 10/20/17 09:31 <Abdulaziz Cook - Last Filed: 10/20/17 10:29> - Lab Data Result diagrams: 10/20/17 09:31 10/20/17 09:31 <Rivera Schwarz - Last Filed: 10/20/17 10:38> - Lab Data Lab Results 10/20/17 10/20/17 10/20/17 Range/Units 09:31 09:31 09:31 WBC 6.9 (3.8-10.6) k/uL RBC 5.43 H (3.80-5.40) m/uL Hgb 15.5 (11.4-16.0) gm/dL Hct 48.0 H (34.0-46.0) % MCV 88.4 (80.0-100.0) fL MCH 28.6 (25.0-35.0) pg MCHC 32.4 (31.0-37.0) g/dL RDW 17.4 H (11.5-15.5) % Plt Count 547 H (150-450) k/uL Neutrophils % 80 % Lymphocytes % 12 % Monocytes % 6 % Eosinophils % 1 % Basophils % 0 % Neutrophils # 5.5 (1.3-7.7) k/uL Lymphocytes # 0.8 L (1.0-4.8) k/uL Monocytes # 0.4 (0-1.0) k/uL Eosinophils # 0.1 (0-0.7) k/uL Basophils # 0.0 (0-0.2) k/uL Anisocytosis Slight Sodium 130 L (137-145) mmol/L Potassium 4.3 (3.5-5.1) mmol/L Chloride 92 L (98-107) mmol/L Carbon Dioxide 23 (22-30) mmol/L Anion Gap 15 mmol/L BUN 5 L (7-17) mg/dL Creatinine 0.78 (0.52-1.04) mg/dL Est GFR (CKD-EPI)AfAm >90 (>60 ml/min/1.73 sqM) Est GFR (CKD-EPI)NonAf 84 (>60 ml/min/1.73 sqM) Glucose 122 H (74-99) mg/dL Plasma Lactic Acid Jaswinder 1.3 (0.7-2.0) mmol/L Calcium 9.8 (8.4-10.2) mg/dL Total Bilirubin 0.9 (0.2-1.3) mg/dL AST 40 H (14-36) U/L ALT 24 (9-52) U/L Alkaline Phosphatase 240 H (38-126) U/L Total Protein 7.9 (6.3-8.2) g/dL Albumin 4.5 (3.5-5.0) g/dL Amylase 182 H (30-110) U/L Lipase 793 H (23-300) U/L Urine Color Urine Appearance (Clear) Urine pH (5.0-8.0) Ur Specific [place] (1.001-1.035) Urine Protein (Negative) Urine Glucose (UA) (Negative) Urine Ketones (Negative) Urine Blood (Negative) Urine Nitrite (Negative) Urine Bilirubin (Negative) Urine Urobilinogen (<2.0) mg/dL Ur Leukocyte Esterase (Negative) Urine RBC (0-5) /hpf Urine WBC (0-5) /hpf Ur Squamous Epith Cells (0-4) /hpf Urine Bacteria (None) /hpf Hyaline Casts (0-2) /lpf Urine Mucus (None) /hpf 10/20/17 Range/Units 09:31 WBC (3.8-10.6) k/uL RBC (3.80-5.40) m/uL Hgb (11.4-16.0) gm/dL Hct (34.0-46.0) % MCV (80.0-100.0) fL MCH (25.0-35.0) pg MCHC (31.0-37.0) g/dL RDW (11.5-15.5) % Plt Count (150-450) k/uL Neutrophils % % Lymphocytes % % Monocytes % % Eosinophils % % Basophils % % Neutrophils # (1.3-7.7) k/uL Lymphocytes # (1.0-4.8) k/uL Monocytes # (0-1.0) k/uL Eosinophils # (0-0.7) k/uL Basophils # (0-0.2) k/uL Anisocytosis Sodium (137-145) mmol/L Potassium (3.5-5.1) mmol/L Chloride (98-107) mmol/L Carbon Dioxide (22-30) mmol/L Anion Gap mmol/L BUN (7-17) mg/dL Creatinine (0.52-1.04) mg/dL Est GFR (CKD-EPI)AfAm (>60 ml/min/1.73 sqM) Est GFR (CKD-EPI)NonAf (>60 ml/min/1.73 sqM) Glucose (74-99) mg/dL Plasma Lactic Acid Jaswinder (0.7-2.0) mmol/L Calcium (8.4-10.2) mg/dL Total Bilirubin (0.2-1.3) mg/dL AST (14-36) U/L ALT (9-52) U/L Alkaline Phosphatase (38-126) U/L Total Protein (6.3-8.2) g/dL Albumin (3.5-5.0) g/dL Amylase (30-110) U/L Lipase (23-300) U/L Urine Color Yellow Urine Appearance Cloudy H (Clear) Urine pH 6.0 (5.0-8.0) Ur Specific [place] 1.022 (1.001-1.035) Urine Protein 1+ H (Negative) Urine Glucose (UA) Negative (Negative) Urine Ketones 1+ H (Negative) Urine Blood Small H (Negative) Urine Nitrite Negative (Negative) Urine Bilirubin Negative (Negative) Urine Urobilinogen <2.0 (<2.0) mg/dL Ur Leukocyte Esterase Large H (Negative) Urine RBC 7 H (0-5) /hpf Urine WBC 90 H (0-5) /hpf Ur Squamous Epith Cells 5 H (0-4) /hpf Urine Bacteria Rare H (None) /hpf Hyaline Casts 13 H (0-2) /lpf Urine Mucus Rare H (None) /hpf Disposition Time of Disposition: 10:30 <Abdulaziz Cook - Last Filed: 10/20/17 10:29> <Rivera Schwarz - Last Filed: 10/20/17 10:38> Clinical Impression: Acute pancreatitis, Pyelonephritis Disposition: ADMITTED IP TO THIS [facility] Condition: Stable Referrals: Brenden Bolanos MD [Primary Care Provider] - 1-2 days Addendum entered and electronically signed by Abdulaziz Cook PA-C 10/20/17 10: 35: EKG performed at 10:06 sinus tachycardia with rate of 1:15 ND 132 QRS 86 QTC/ QTC 350/484
[2017-10-20] MEDS ORDERED: ONDANSETRON 4 MG/2 ML VIAL IVP STA (09:39)
[2017-10-20] MEDS ORDERED: KETOROLAC 30 MG/ML 1 ML VIAL IVP STA (09:39)
[2017-10-20 09:52] LABS: Anisocytosis Slight; Basophils % (A) 0 %; Eosinophils # (A) 0.1 k/uL (0-0.7); Eosinophils % (A) 1 %; HGB 15.5 gm/dL (11.4-16.0); Lymphocytes # (A) 0.8 k/uL (1.0-4.8); Lymphocytes % (A) 12 %; MCH 28.6 pg (25.0-35.0); MCHC 32.4 g/dL (31.0-37.0); MCV 88.4 fL (80.0-100.0); Mean Platelet Volume 6.5; Monocytes # (A) 0.4 k/uL (0-1.0); Monocytes % (A) 6 %; Neutrophils # (A) 5.5 k/uL (1.3-7.7); Neutrophils % (A) 80 %; Platelet Count 547 k/uL (150-450); RBC 5.43 m/uL (3.80-5.40); RDW 17.4 % (11.5-15.5); WBC 6.9 k/uL (3.8-10.6)
[2017-10-20 10:01] LABS: ALT 24 U/L (9-52); AST 40 U/L (14-36); Albumin 4.5 g/dL (3.5-5.0); Alkaline Phosphatase 240 U/L (38-126); Amylase 182 U/L (30-110); Anion Gap 15 mmol/L; Blood Urea Nitrogen 5 mg/dL (7-17); Calcium 9.8 mg/dL (8.4-10.2); Carbon Dioxide 23 mmol/L (22-30); Chloride 92 mmol/L (98-107); Glucose 122 mg/dL (74-99); Lipase 793 U/L (23-300); Sodium 130 mmol/L (137-145); Total Bilirubin 0.9 mg/dL (0.2-1.3); Total Protein 7.9 g/dL (6.3-8.2)
[2017-10-20 10:12] LABS: Appearance,Urine Cloudy (Clear); Bacteria,Urine Rare /hpf; Bilirubin,Urine Negative (Negative); Blood,Urine Small (Negative); Color,Urine Yellow; Glucose,Urine (UA) Negative (Negative); Hyaline Casts,Urine 13 /lpf (0-2); Ketones,Urine 1+ (Negative); Leukocyte Esterase,Urine Large (Negative); Mucus,Urine Rare /hpf; Nitrite,Urine Negative (Negative); Protein,Urine 1+ (Negative); RBC,Urine 7 /hpf (0-5); Specific Gravity,Urine 1.022 (1.001-1.035); Squamous Epithelial Cell,Urine 5 /hpf (0-4); Urobilinogen,Urine <2.0 mg/dL (<2.0); WBC,Urine 90 /hpf (0-5)
[2017-10-20 10:16] LABS: Potassium 4.3 mmol/L (3.5-5.1)
[2017-10-20] MEDS ORDERED: cefTRIAXone IN SWFI 1,000 MG/10 ML SYRINGE IVP STA (10:27)
[2017-10-20] MEDS ORDERED: MORPHINE SULFATE 4 MG/ML SYRINGE IV PRN (10:32)
[2017-10-20] MEDS ORDERED: ACETAMINOPHEN TAB 325 MG TAB PO PRN (10:32)
[2017-10-20] MEDS ORDERED: KETOROLAC 30 MG/ML 1 ML VIAL IVP PRN (10:32)
[2017-10-20] MEDS ORDERED: ZOLPIDEM 10 MG TAB PO PRN (10:34)
[2017-10-20] MEDS ORDERED: CYCLOBENZAPRINE 10 MG TAB PO PRN (10:34)
--- NOTE | 2017-10-20 10:54 | XR ---
EXAMINATION TYPE: XR KUB DATE OF EXAM: 10/20/2017 CLINICAL DATA: 56-year-old female with low back pain and abdominal pain, PHH COMPARISON: None FINDINGS: Lung bases are clear. Postsurgical nancy just below the GE junction. Cholecystectomy clips are also present. A single borderline dilated small bowel loop in the left paramedian mid abdomen at 3.0 cm is nonspeci fic. No differential air-fluid levels. Scattered colonic gas is present particularly on the right. No evidence for free intraperitoneal air. Pelvic phleboliths on the right. IMPRESSION: 1. Solitary prominent loop of small bowel in the left paramedian mid abdomen could represent a region al ileus or enteritis. 2. Overall nonobstructive bowel gas pattern. No free air.
[2017-10-20] MEDS: SODIUM CHLORIDE 0.9% 1,000 ML IV SCH (11:00)
[2017-10-20] MEDS ORDERED: LISINOPRIL 10 MG TAB PO STA (14:30)
[2017-10-20] MEDS: ONDANSETRON 4 MG/2 ML VIAL IVP PRN ×2 (14:33→22:50)
[2017-10-20] MEDS: HYDROcodone/APAP 10-325MG 1 EACH TAB PO PRN ×2 (14:35→19:26)
[2017-10-20] MEDS: carBAMazepine 200 MG TAB PO SCH (14:36)
[2017-10-20] MEDS: ALPRAZolam 1 MG TAB PO SCH ×2 (14:36→19:26)
[2017-10-20] MEDS ORDERED: ALBUTEROL NEBULIZED 2.5 MG/3 ML INHALATION PRN (15:02)
[2017-10-20] MEDS ORDERED: TEMAZEPAM 15 MG CAP PO PRN (15:04)
--- NOTE | 2017-10-20 16:08 | HP ---
HISTORY AND PHYSICAL DATE OF SERVICE: 10/20/2017 CHIEF COMPLAINT: Abdominal pain. HISTORY OF PRESENT ILLNESS: This 56-year-old woman with a past history of bipolar, hypertension, history of DJD, history of chronic Storey catheter, history of chronic low back pain being followed by Dr. Bolanos in the outpatient setting was complaining of abdominal pain. Patient also had chronic pain syndrome also. The pain is situated in the front of the abdomen and back of the abdomen. Patient has also had significant retching and nausea also. The patient also was evaluated by Dr. Sanchez and was planning EGD as an outpatient for GERD apparently. Because of increasing complaints, patient came to [facility] and admitted for further evaluation. Patient is admitted for further evaluation and treatment. On admission, the amylase was found to be 182, lipase 793. UA showed some evidence of UTI also. There is no history of fever, rigors. No history of headache, loss of consciousness, seizures. PAST MEDICAL HISTORY: History of hypertension, history of obesity, previous bariatric surgery, history of bladder surgery, cholecystectomy, anxiety, bipolar depression. MEDICATIONS: Prior to admission include: 1. Cymbalta 120 mg p.o. q.h.s. 2. Desyrel 100 mg p.o. q.h.s. 3. Hydrocodone 20 mg t.i.d. p.r.n. 4. BuSpar 5 mg p.o. b.i.d. 5. Tegretol 400 mg p.o. b.i.d. 6. Norvasc 10 mg p.o. q.a.m. 7. Ambien 10 mg q.h.s. 8. Imitrex 100 mg p.o. daily p.r.n. 9. Zestril 10 mg daily. 10.Flexeril 10 mg daily p.r.n. 11.Ventolin HFA 2 puffs q.4h p.r.n. 12.Xanax 1 mg p.o. q.i.d. ALLERGIES: None. FAMILY HISTORY: No history of heart disease or strokes in the family. SOCIAL HISTORY: There is previous history of smoking. No history of alcohol intake. REVIEW OF SYSTEMS: ENT: No diminished vision. No diminished hearing. CARDIOVASCULAR: No angina or palpitations. RESPIRATORY: No cough. GI: As mentioned earlier. : No dysuria. NERVOUS SYSTEM: No numbness or weakness. ALLERGY/IMMUNOLOGY: No asthma or hayfever. MUSCULOSKELETAL: As mentioned earlier. HEMATOLOGY/ONCOLOGY: No history of anemia. ENDOCRINE: No history of diabetes or hypothyroidism. CONSTITUTIONAL: As mentioned earlier. DERMATOLOGY: Negative. RHEUMATOLOGY: Negative. PSYCHIATRY: As mentioned earlier. PHYSICAL EXAMINATION: GENERAL: The patient is alert and oriented times three. VITAL SIGNS: Pulse is 108, blood pressure 172/82. Respirations 18, temperature 97.2, pulse ox 98% on room air. HEENT: Conjunctivae normal. Oral mucosa moist. NECK is no jugular venous distention. No carotid bruit. No lymph nodes enlargement. CARDIOVASCULAR: S1-S2, no S3, no S4. RESPIRATORY: Breath sounds diminished in the bases. No rhonchi. No crackles. ABDOMEN: Soft, nontender. No mass palpable. Soft, mild diffuse tenderness in the epigastrium. No guarding. No rigidity. No mass palpable. LEGS: No edema and no swelling. NERVOUS SYSTEM: Higher functions as mentioned earlier. Moves all four extremities. No focal deficits. LYMPHATICS: No lymph nodes palpable in the neck, axillae or groin. SKIN: No ulcer, rash or bleeding. LAB STUDIES: WBC 6.9, hemoglobin 15.5, sodium 130, potassium 4.3. Alkaline phosphatase 240. UA noted. ASSESSMENT: 1. Abdominal pain possible acute pancreatitis. 2. Acute urinary tract infection. 3. Hyponatremia. 4. History of bariatric surgery. 5. Hypertension. 6. History of gastroesophageal reflux disease. 7. History of anxiety. 8. History of bipolar. 9. Anxiety/bipolar depression. 10.History of nicotine dependence. 11.Chronic back pain. 12.History of iron-deficiency anemia. 13.History of gastric bypass. 14.History of colonic volvulus. RECOMMENDATIONS AND DISCUSSION: In this 56-year-old woman who presented with multiple complex medical issues, we will monitor the patient closely. Continue the current medications, management and symptomatic treatment. CT scan of the abdomen and pelvis. I would also recommend consultation with surgery and Gastroenterology. Guarded prognosis because of multiple complex medical issues. Empiric antibiotics to cover UTI, cultures, repeat labs. See orders for details. The prognosis guarded because of multiple complex medical issues and further recommendations to follow. Discussed with the patient at length. Copy forwarded to Dr. Dodd, who is the primary physician. MMODL / IJN: [id number] /
--- NOTE | 2017-10-20 17:43 | P.GSCN ---
History of Present Illness Consult date: 10/20/17 Reason for Consult: GERD, vomiting History of present illness: Patient is known to our service. She underwent a previous right colectomy for cecal volvulus. She has a history of previous gastric bypass as well. She had been scheduled for a upper endoscopy in August however the patient canceled that procedure. She said at home she was noticing her urine was quite thick and cloudy. She had a fever at home as high as 101. She had some back discomfort. She thought she may be having an ascending urinary infection. She came to the hospital with progression of her upper abdominal pain and nausea and vomiting. She has been taking Phenergan at home for her intractable vomiting issues. She was found have elevated amylase and lipase. Urinalysis does suggest the possibility of acute infection. Patient denies history of pancreatitis in the past. No hematemesis. Review of Systems The patient denies any acute changes in vision or hearing, no dysphagia or odynophagia, no chest pain or shortness of breath, no dysuria or hematuria, no headache, no runny nose, no rectal bleeding or melena, no unexplained weight loss Past Medical History Past Medical History: Blood Disorder, Hypertension Additional Past Medical History / Comment(s): past Obesity with previous bariatric surgery, fluctuating body weight, endometreosis,general anxiety disorder, bipolar disorder, hypertension, chronic back pain, history of iron deficiency,"low rbc's" history of anemia requiring blood transfusions, uti, falls and in may with fall had fx to lt hip but no sx, dizzy spells, chronic samuel cath- bladder only holds 100 ml's. pt stated it was changed today 10-20-17 History of Any Multi-Drug Resistant Organisms: None Reported Past Surgical History: Appendectomy, Bariatric Surgery, Bladder Surgery, Section, Cholecystectomy, Hysterectomy, Tubal Ligation Additional Past Surgical History / Comment(s): bladder suspension, gastric bypass, colon volvulus had exporatory lap w/lysis of adhesions and rt colectomy Past Anesthesia/Blood Transfusion Reactions: No Reported Reaction Additional Past Anesthesia/Blood Transfusion Reaction / Comm: blood trandfusion - no reaction Smoking Status: Former smoker - Past Family History Mother Family Medical History: No Reported History Additional Family Medical History / Comment(s): no history Father Family Medical History: No Reported History Additional Family Medical History / Comment(s): from alcoholism Medications and Allergies Home Medications Medication Instructions Recorded Confirmed Type ALPRAZolam [Xanax] 1 mg PO QID 03/21/16 10/20/17 History Albuterol Inhaler [Ventolin Hfa 2 puff INHALATION RT-Q4H PRN 03/21/16 10/20/17 History Inhaler] DULoxetine HCL [Cymbalta] 120 mg PO HS 03/21/16 10/20/17 History HYDROcodone/APAP 10-325MG [[place] 1 tab PO TID PRN 03/21/16 10/20/17 History 10-325] SUMAtriptan SUCCINATE [Imitrex] 100 mg PO DAILY PRN 03/21/16 10/20/17 History carBAMazepine [TEGretol] 400 mg PO Q12H 03/21/16 10/20/17 History Zolpidem [Ambien] 10 mg PO HS PRN 04/24/16 10/20/17 History amLODIPine [Norvasc] 10 mg PO HS #30 tab 04/29/16 10/20/17 Rx Cyclobenzaprine [Flexeril] 10 mg PO DAILY PRN 12/18/16 10/20/17 History Lisinopril [Zestril] 10 mg PO DAILY 12/18/16 10/20/17 History busPIRone HCl [Buspar] 5 mg PO BID 10/20/17 10/20/17 History traZODone HCL [Desyrel] 100 mg PO HS 10/20/17 10/20/17 History Allergies Allergy/AdvReac Type Severity Reaction Status Date / Time No Known Allergies Allergy Verified 10/20/17 09:00 Surgical - Exam Vital Signs Temp Pulse Resp BP Pulse Ox 97.6 F 133 H 20 122/86 99 10/20/17 08:51 10/20/17 08:51 10/20/17 08:51 10/20/17 08:51 10/20/17 08:51 Physical exam: General: Well-developed, well-nourished HEENT: Normocephalic, sclerae nonicteric Abdomen: Epigastric tenderness, nondistended Extremities: No edema Neuro: Alert and oriented Results - Labs 10/20/17 09:31 10/20/17 09:31 Abnormal Lab Results - Last 24 Hours (Table) 10/20/17 10/20/17 10/20/17 Range/Units 09:31 09:31 09:31 RBC 5.43 H (3.80-5.40) m/uL Hct 48.0 H (34.0-46.0) % RDW 17.4 H (11.5-15.5) % Plt Count 547 H (150-450) k/uL Lymphocytes # 0.8 L (1.0-4.8) k/uL Sodium 130 L (137-145) mmol/L Chloride 92 L (98-107) mmol/L BUN 5 L (7-17) mg/dL Glucose 122 H (74-99) mg/dL AST 40 H (14-36) U/L Alkaline Phosphatase 240 H (38-126) U/L Amylase 182 H (30-110) U/L Lipase 793 H (23-300) U/L Urine Appearance Cloudy H (Clear) Urine Protein 1+ H (Negative) Urine Ketones 1+ H (Negative) Urine Blood Small H (Negative) Ur Leukocyte Esterase Large H (Negative) Urine RBC 7 H (0-5) /hpf Urine WBC 90 H (0-5) /hpf Ur Squamous Epith Cells 5 H (0-4) /hpf Urine Bacteria Rare H (None) /hpf Hyaline Casts 13 H (0-2) /lpf Urine Mucus Rare H (None) /hpf Microbiology - Last 24 Hours (Table) 10/20/17 09:31 Urine Culture - Preliminary Urine,Catheterized Diabetes panel 10/20/17 Range/Units 09:31 Sodium 130 L (137-145) mmol/L Potassium 4.3 (3.5-5.1) mmol/L Chloride 92 L (98-107) mmol/L Carbon Dioxide 23 (22-30) mmol/L BUN 5 L (7-17) mg/dL Creatinine 0.78 (0.52-1.04) mg/dL Glucose 122 H (74-99) mg/dL Calcium 9.8 (8.4-10.2) mg/dL AST 40 H (14-36) U/L ALT 24 (9-52) U/L Alkaline Phosphatase 240 H (38-126) U/L Total Protein 7.9 (6.3-8.2) g/dL Albumin 4.5 (3.5-5.0) g/dL Calcium panel 10/20/17 Range/Units 09:31 Calcium 9.8 (8.4-10.2) mg/dL Albumin 4.5 (3.5-5.0) g/dL Pituitary panel 10/20/17 Range/Units 09:31 Sodium 130 L (137-145) mmol/L Potassium 4.3 (3.5-5.1) mmol/L Chloride 92 L (98-107) mmol/L Carbon Dioxide 23 (22-30) mmol/L BUN 5 L (7-17) mg/dL Creatinine 0.78 (0.52-1.04) mg/dL Glucose 122 H (74-99) mg/dL Calcium 9.8 (8.4-10.2) mg/dL Adrenal panel 10/20/17 Range/Units 09:31 Sodium 130 L (137-145) mmol/L Potassium 4.3 (3.5-5.1) mmol/L Chloride 92 L (98-107) mmol/L Carbon Dioxide 23 (22-30) mmol/L BUN 5 L (7-17) mg/dL Creatinine 0.78 (0.52-1.04) mg/dL Glucose 122 H (74-99) mg/dL Calcium 9.8 (8.4-10.2) mg/dL Total Bilirubin 0.9 (0.2-1.3) mg/dL AST 40 H (14-36) U/L ALT 24 (9-52) U/L Alkaline Phosphatase 240 H (38-126) U/L Total Protein 7.9 (6.3-8.2) g/dL Albumin 4.5 (3.5-5.0) g/dL Assessment and Plan (1) Intractable vomiting Narrative/Plan: Patient's symptoms could be on the basis of pancreatitis or the patient's underlying urinary tract infection. If symptoms persist recommend upper endoscopy during this hospitalization. We'll follow closely with you. Current Visit: Yes Status: Acute Code(s): R11.10 - VOMITING, UNSPECIFIED SNOMED Code(s): 745767093
[2017-10-20] MEDS: DULoxetine HCL 60 MG CAPSULE.DR PO SCH (20:36)
[2017-10-20] MEDS: HEPARIN SODIUM,PORCINE 5,000 UNIT/ML 1 ML VIAL SQ SCH (20:36)
[2017-10-20] MEDS: busPIRone HCl 5 MG TAB PO SCH (20:36)
[2017-10-20] MEDS: amLODIPine 10 MG TAB PO SCH (20:36)
[2017-10-20] MEDS: traZODone HCL 100 MG TAB PO SCH (20:36)
[2017-10-20] MEDS: PANTOPRAZOLE 40 MG/10 ML VIAL IVP SCH (20:37)
[2017-10-20] MEDS ORDERED: TOPIRAMATE 100 MG TAB PO SCH (21:00)
[2017-10-21] MEDS: HYDROcodone/APAP 10-325MG 1 EACH TAB PO PRN ×4 (00:53→23:21)
[2017-10-21] MEDS: ALPRAZolam 1 MG TAB PO SCH ×5 (00:53→21:38)
[2017-10-21] MEDS: carBAMazepine 200 MG TAB PO SCH ×3 (00:53→20:08)
[2017-10-21] MEDS: SODIUM CHLORIDE 0.9% 1,000 ML IV SCH ×2 (03:33→12:59)
[2017-10-21 06:27] LABS: Amphetamine Screen,Urine Not Detected (NotDetected); Barbiturate Screen,Urine Not Detected (NotDetected); Benzodiazepines Screen,Urine Detected (NotDetected); Cocaine Screen,Urine Not Detected (NotDetected); Methadone Screen, Urine Not Detected (NotDetected); Opiate Screen,Urine Detected (NotDetected); Oxycodone Screen, Urine Not Detected (NotDetected); Phencyclidine Screen,Urine Not Detected (NotDetected); Tricyclic Antidepressant,Urine Not Detected (NotDetected); Urn Cannabinoid Scrn Not Detected (NotDetected)
[2017-10-21] MEDS: SUMAtriptan SUCCINATE 50 MG TAB PO PRN (06:35)
[2017-10-21 08:29] LABS: Anisocytosis Slight; Basophils % (A) 1 %; Eosinophils # (A) 0.1 k/uL (0-0.7); Eosinophils % (A) 2 %; HCT 43.4 % (34.0-46.0); HGB 13.3 gm/dL (11.4-16.0); Lymphocytes % (A) 23 %; MCH 27.9 pg (25.0-35.0); MCHC 30.8 g/dL (31.0-37.0); MCV 90.8 fL (80.0-100.0); Mean Platelet Volume 6.3; Monocytes # (A) 0.3 k/uL (0-1.0); Monocytes % (A) 7 %; Neutrophils # (A) 2.8 k/uL (1.3-7.7); Neutrophils % (A) 66 %; Platelet Count 430 k/uL (150-450); RBC 4.78 m/uL (3.80-5.40); RDW 17.6 % (11.5-15.5); WBC 4.2 k/uL (3.8-10.6)
--- NOTE | 2017-10-21 08:33 | P.CONS ---
History of Present Illness - Reason for Consult Consult date: 10/21/17 Pancreatitis Requesting physician: Annel Pantoja - History of Present Illness 56-year-old female with a history of chronic indwelling Samuel catheter chronic UTI; pseudomonas and E. coli, gastric bypass, colonic volvulus status post surgery 2 months ago, bipolar depression, admitted abdominal pain acute on chronic chronic UTI pyuria fever. Consult requested for pancreatitis. Patient states around 10-14 days ago she developed pain in the mid epigastrium as well as in the bilateral lower abdomen retroperitoneal region thought it was related to her chronic UTIs. She is a history of remote acalculous cholecystectomy many years ago. Admission lipase 793 presently 377. Amylase 182 presently 86. Total bilirubin 0.9. AST 40. ALT 24. AP to 40. Today total bilirubin is 0.2. AST 23. ALT 36. AP 188. White count 4.2. Hemoglobin 13.3. BUN less than 2. Creatinine 0.6. No history of pancreatitis. No history of alcoholism or autoimmune disorders. Her medications have changed over the last few months she was placed on BuSpar 3 months ago, Macrobid 3 weeks ago and trazodone 2-3 months ago. Upon review of medical record she has a history of dilated biliary tree was normal liver enzymes. CT abdomen and pelvis March and November 2016 reported dilation of biliary tree intra-and extrahepatic measuring 13 mm. Common hepatic duct 1.5 cm. No evidence of pancreatic mass. MRI pancreas March 2016 reported a dilated redundant CBD measuring up to 1.7 cm with no filling defect. No evidence of pancreatic mass. Pancreatic duct slightly ectatic measuring up to 4 mm no focal liver defect. Dilated biliary tree extends down to the distal common bile duct possibly related to a stricture. RICHY screen in 2017 negative. Review of Systems Constitutional: Denies fever, chills, sweats, weight gain, or loss. HEENT: Negative for migraines, blurred vision or loss, earaches, drainage, tinnitus, oral mucosal lesions, dysphagia, or odynophagia. CARDIAC: Negative for chest pain, arrhythmias, or palpitation. RESPIRATORY: Negative for shortness of breath, hemoptysis, cough, or sputum production. GI: See HPI for pertinent findings. : Chronic indwelling catheter with chronic UTIs. GYNc: Negative vaginal discharge. MUSCULOSKELETAL: Negative for muscle aches, swelling, arthritis, and arthralgias. NEUROLOGIC: Negative for stroke or TIA. ENDOCRINE: Negative for thyroid problems. SKIN: Negative for rash or itching. PSYCHIATRIC: History of bipolar depression. Past Medical History Past Medical History: Blood Disorder, Hypertension Additional Past Medical History / Comment(s): past Obesity with previous bariatric surgery, fluctuating body weight, endometreosis,general anxiety disorder, bipolar disorder, hypertension, chronic back pain, history of iron deficiency,"low rbc's" history of anemia requiring blood transfusions, uti, falls and in may with fall had fx to lt hip but no sx, dizzy spells, chronic samuel cath- bladder only holds 100 ml's. pt stated it was changed today 10-20-17 History of Any Multi-Drug Resistant Organisms: None Reported Past Surgical History: Appendectomy, Bariatric Surgery, Bladder Surgery, Section, Cholecystectomy, Hysterectomy, Tubal Ligation Additional Past Surgical History / Comment(s): bladder suspension, gastric bypass, colon volvulus had exporatory lap w/lysis of adhesions and rt colectomy Past Anesthesia/Blood Transfusion Reactions: No Reported Reaction Additional Past Anesthesia/Blood Transfusion Reaction / Comm: blood trandfusion - no reaction Smoking Status: Former smoker - Past Family History Mother Family Medical History: No Reported History Additional Family Medical History / Comment(s): no history Father Family Medical History: No Reported History Additional Family Medical History / Comment(s): from alcoholism Medications and Allergies Home Medications Medication Instructions Recorded Confirmed Type ALPRAZolam [Xanax] 1 mg PO QID 03/21/16 10/20/17 History Albuterol Inhaler [Ventolin Hfa 2 puff INHALATION RT-Q4H PRN 03/21/16 10/20/17 History Inhaler] DULoxetine HCL [Cymbalta] 120 mg PO HS 03/21/16 10/20/17 History HYDROcodone/APAP 10-325MG [[place] 1 tab PO TID PRN 03/21/16 10/20/17 History 10-325] SUMAtriptan SUCCINATE [Imitrex] 100 mg PO DAILY PRN 03/21/16 10/20/17 History carBAMazepine [TEGretol] 400 mg PO Q12H 03/21/16 10/20/17 History Zolpidem [Ambien] 10 mg PO HS PRN 04/24/16 10/20/17 History amLODIPine [Norvasc] 10 mg PO HS #30 tab 04/29/16 10/20/17 Rx Cyclobenzaprine [Flexeril] 10 mg PO DAILY PRN 12/18/16 10/20/17 History Lisinopril [Zestril] 10 mg PO DAILY 12/18/16 10/20/17 History busPIRone HCl [Buspar] 5 mg PO BID 10/20/17 10/20/17 History traZODone HCL [Desyrel] 100 mg PO HS 10/20/17 10/20/17 History Allergies Allergy/AdvReac Type Severity Reaction Status Date / Time No Known Allergies Allergy Verified 10/20/17 09:00 Physical Exam Vitals: Vital Signs Temp Pulse Pulse Resp BP BP Pulse Ox 10/21/17 05:17 97.9 F 104 H 16 122/81 96 10/20/17 23:16 16 10/20/17 21:03 98.1 F 114 H 16 137/87 96 10/20/17 17:18 108 H 146/83 10/20/17 15:27 97.6 F 113 H 18 196/104 99 10/20/17 14:28 108 H 18 172/80 96 10/20/17 10:25 109 H 18 139/72 99 10/20/17 08:51 97.6 F 133 H 20 122/86 99 Intake and Output 10/20/17 10/21/17 10/21/17 22:59 06:59 14:59 Other: # Voids 0 General appearance: The patient is alert, oriented, in no acute distress. HET: Head is normocephalic and atraumatic. Pupils are equal and reactive. Oropharynx is clear without lesions. Neck: Supple without lymphadenopathy. Trachea midline. Heart: S1 S2. Regular rate and rhythm. Lungs: No crackles or wheezes are heard. Abdomen: Soft, very mild midepigastric tenderness, nondistended with bowel sounds. No peritoneal signs. No palpable organomegaly or masses. Extremities: Normal skin color and turgor. No cyanosis, rash, ulceration, clubbing, or edema. Radial and pedal pulses are 2/4 bilaterally. Samuel with clear rahul urine. Neurological: No focal deficits. Strength and sensation are grossly intact. Results CBC & Chem 7: 10/21/17 07:36 10/20/17 09:31 Labs: Abnormal Lab Results - Last 24 Hours (Table) 10/20/17 10/20/17 10/20/17 Range/Units 09:31 09:31 09:31 RBC 5.43 H (3.80-5.40) m/uL Hct 48.0 H (34.0-46.0) % RDW 17.4 H (11.5-15.5) % Plt Count 547 H (150-450) k/uL Lymphocytes # 0.8 L (1.0-4.8) k/uL Sodium 130 L (137-145) mmol/L Chloride 92 L (98-107) mmol/L BUN 5 L (7-17) mg/dL Glucose 122 H (74-99) mg/dL AST 40 H (14-36) U/L Alkaline Phosphatase 240 H (38-126) U/L Amylase 182 H (30-110) U/L Lipase 793 H (23-300) U/L Urine Appearance Cloudy H (Clear) Urine Protein 1+ H (Negative) Urine Ketones 1+ H (Negative) Urine Blood Small H (Negative) Ur Leukocyte Esterase Large H (Negative) Urine RBC 7 H (0-5) /hpf Urine WBC 90 H (0-5) /hpf Ur Squamous Epith Cells 5 H (0-4) /hpf Urine Bacteria Rare H (None) /hpf Hyaline Casts 13 H (0-2) /lpf Urine Mucus Rare H (None) /hpf Urine Opiates Screen (NotDetected) U Benzodiazepines Scrn (NotDetected) 10/21/17 Range/Units 05:56 RBC (3.80-5.40) m/uL Hct (34.0-46.0) % RDW (11.5-15.5) % Plt Count (150-450) k/uL Lymphocytes # (1.0-4.8) k/uL Sodium (137-145) mmol/L Chloride (98-107) mmol/L BUN (7-17) mg/dL Glucose (74-99) mg/dL AST (14-36) U/L Alkaline Phosphatase (38-126) U/L Amylase (30-110) U/L Lipase (23-300) U/L Urine Appearance (Clear) Urine Protein (Negative) Urine Ketones (Negative) Urine Blood (Negative) Ur Leukocyte Esterase (Negative) Urine RBC (0-5) /hpf Urine WBC (0-5) /hpf Ur Squamous Epith Cells (0-4) /hpf Urine Bacteria (None) /hpf Hyaline Casts (0-2) /lpf Urine Mucus (None) /hpf Urine Opiates Screen Detected H (NotDetected) U Benzodiazepines Scrn Detected H (NotDetected) Microbiology - Last 24 Hours (Table) 10/20/17 09:31 Urine Culture - Preliminary Urine,Catheterized Comments: Previous CT abdomen and pelvis/MRI pancreas [address] Jackman Assessment and Plan (1) Acute pancreatitis Narrative/Plan: 56-year-old female with a history of chronic indwelling Samuel catheter and chronic UTIs admitted with acute UTI with elevated pancreatic enzymes consistent with acute pancreatitis. Etiology of pancreatitis unclear. History of dilated biliary tree with normal liver enzymes. Previous MRI pancreas imaging suggestive of possible CBD stricture disease. Other differentials to consider is medication related but felt to be less likely. Current Visit: Yes Status: Acute Code(s): K85.90 - ACUTE PANCREATITIS WITHOUT NECROSIS OR INFECTION, UNSP SNOMED Code(s): 471789184 (2) History of gastric bypass Current Visit: Yes Status: Acute Code(s): Z98.84 - BARIATRIC SURGERY STATUS SNOMED Code(s): 195617200 (3) UTI (urinary tract infection) Current Visit: Yes Status: Acute Code(s): N39.0 - URINARY TRACT INFECTION, SITE NOT SPECIFIED SNOMED Code(s): 94107384 Plan: 1. Lipase/amylase today. Ca 19-9. Triglyceride level. 2. Clear liquids; pancreas enzymes improved. IV hydration. 3. Outpatient EUS discussed. ERCP not indicated at this time. Will follow with you. Thank you for this kind referral and the opportunity to participate in the care of your patient. This consultation was discussed with Dr. Jackman. The impression and plan of care have been directed as dictated.
[2017-10-21 08:50] LABS: ALT 36 U/L (9-52); AST 23 U/L (14-36); Albumin 3.7 g/dL (3.5-5.0); Alkaline Phosphatase 188 U/L (38-126); Amylase 86 U/L (30-110); Anion Gap 11 mmol/L; Blood Urea Nitrogen <2 mg/dL (7-17); Calcium 9.2 mg/dL (8.4-10.2); Carbon Dioxide 27 mmol/L (22-30); Chloride 99 mmol/L (98-107); Glucose 103 mg/dL (74-99); Lipase 377 U/L (23-300); Potassium 4.2 mmol/L (3.5-5.1); Sodium 137 mmol/L (137-145); Total Bilirubin 0.2 mg/dL (0.2-1.3); Total Protein 6.1 g/dL (6.3-8.2)
[2017-10-21] MEDS ORDERED: DULoxetine HCL 60 MG CAPSULE.DR PO SCH (09:00)
[2017-10-21] MEDS: cefTRIAXone IN SWFI 1,000 MG/10 ML SYRINGE IVP SCH (09:08)
[2017-10-21] MEDS: HEPARIN SODIUM,PORCINE 5,000 UNIT/ML 1 ML VIAL SQ SCH ×2 (09:08→20:09)
[2017-10-21] MEDS: PANTOPRAZOLE 40 MG/10 ML VIAL IVP SCH ×2 (09:08→20:09)
[2017-10-21] MEDS: busPIRone HCl 5 MG TAB PO SCH ×2 (09:09→20:08)
[2017-10-21] MEDS: DULoxetine HCL 60 MG CAPSULE.DR PO SCH (09:09)
[2017-10-21] MEDS: LISINOPRIL 10 MG TAB PO SCH (09:09)
[2017-10-21] MEDS ORDERED: FLUCONAZOLE 150 MG TAB PO SCH (10:45)
[2017-10-21 11:49] VITALS: BMI 26.6
--- NOTE | 2017-10-21 12:14 | ECHOF ---
Referral Reason:tachycardia MEASUREMENTS -------- HEIGHT: 157.5 cm WEIGHT: 66.2 kg BP: IVSd: 1.1 cm (0.6 - 1.1) LVIDd: 4.5 cm (3.9 - 5.3) LVPWd: 1.3 cm (0.6 - 1.1) IVSs: 1.5 cm LVIDs: 2.9 cm LVPWs: 1.6 cm LA Diam: 3.1 cm (2.7 - 3.8) Ao Diam: 3.1 cm (2.0 - 3.7) AV Cusp: 2.1 cm (1.5 - 2.6) LA Diam: 3.7 cm (2.7 - 3.8) MV EXCURSION: 16.594 mm (> 18.000) MV EF SLOPE: 71 mm/s (70 - 150) EPSS: 0.3 cm MV E Omar: 0.59 m/s MV DecT: 238 ms MV A Omar: 0.97 m/s MV E/A Ratio: 0.61 FINDINGS -------- Sinus rhythm. This was a technically good study. LV size, wall thickness and systolic function are normal, with an EF greater than 55%. The left sixto tricular size is normal. The right ventricle is normal in size. The left atrial size is normal. The right atrial size is normal. Trace to mild aortic regurgitation. Mild mitral annular calcification present. Mild mitral regurgitation is present. Mild tricuspid regurgitation present. There is no evidence of pulmonary hypertension. The right v entricular systolic pressure, as measured by Doppler, is {RVSP}. There is no pulmonic regurgitation present. The aortic root size is normal. There is no pericardial effusion. CONCLUSIONS -------- 1. LV size, wall thickness and systolic function are normal, with an EF greater than 55%. 2. The left ventricular size is normal. 3. The right ventricle is normal in size. 4. The left atrial size is normal. 5. The right atrial size is normal. 6. Trace to mild aortic regurgitation. 7. Mild mitral annular calcification present. 8. Mild mitral regurgitation is present. 9. Mild tricuspid regurgitation present. 10. There is no evidence of pulmonary hypertension. 11. The right ventricular systolic pressure, as measured by Doppler, is {RVSP}. 12. There is no pulmonic regurgitation present. 13. The aortic root size is normal. 14. There is no pericardial effusion. PROBATE JUDGE: Wendi Hurtado RDCS
--- NOTE | 2017-10-21 14:03 | PN ---
PROGRESS NOTE DATE OF SERVICE: 10/21/2017 This 56-year-old woman was admitted with abdominal pain, also had acute pancreatitis. Patient also had features of UTI. The EKG showed normal progression of R-waves in the EKG. A 2D echo which ordered today showed ejection fraction of more than 50% and mild valvular abnormalities. The CBC 4.2, hemoglobin is 13.8, and alkaline phosphatase 188, total protein 6.1, lipase of 377 today. PAST MEDICAL HISTORY: Reviewed. REVIEW OF SYSTEMS: CARDIOVASCULAR: No angina, palpitations as mentioned earlier. RESPIRATORY: No cough, no hemoptysis. GI: As mentioned earlier. : No dysuria. NERVOUS SYSTEM: No numbness or weakness. CURRENT MEDICATIONS ARE REVIEWED INCLUDE: 1. Tylenol 650 q.6 p.r.n. 2. [place] 10 mg p.r.n. 3. Xanax 1 mg p.o. q.i.d. 4. Norvasc 10 mg. 5. BuSpar 5 mg p.o. b.i.d. 6. Tegretol 400 mg b.i.d. 7. Rocephin 1 g daily. 8. Flexeril 10 mg daily. 9. Cymbalta 120 mg q.h.s. 10.Heparin 5,000 subcu b.i.d. 11.Toradol 30 mg q.6 p.r.n. 12.Zestril 10 mg p.o. daily. 13.Morphine sulfate 4 mg p.o. p.r.n. 14.Zofran 4 mg q.8 p.r.n. 15.Protonix 40 mg b.i.d. 16.Imitrex 100 mg p.o. daily. 17.Restoril 50 mg q.h.s. 18.Desyrel 200 mg q.h.s. 19.Ambien 10 mg q.h.s. p.r.n. PHYSICAL EXAM: Patient is alert, oriented x3, pulse 104, blood pressure 120/81, respiration 16, temperature 97.9, pulse ox 94% on room air. HEENT: Conjunctivae normal. Oral mucosa moist. Neck is no jugular venous distention. No lymph node enlargement. CARDIOVASCULAR: S1, S, no S3, S4. RESPIRATORY: Breath sounds diminished at the bases, no rhonchi, no crackles. ABDOMEN: Soft. Mild diffuse discomfort on palpation. No guarding. No rigidity. No mass palpable. LEGS: No edema, no swelling. NERVOUS SYSTEM: Higher functions as mentioned earlier, moves all 4 limbs. LYMPHATICS: No lymph node enlargement in neck or axillae. SKIN: No ulcer, rashes or bleeding. LABS: WBC 4.8, hemoglobin 13.3, sodium 137, potassium 4.2. Amylase 86 and lipase is 377. ASSESSMENT: 1. Abdominal pain, possibly acute pancreatitis. 2. Acute urinary tract infection. 3. Non-progression R-waves on the EKG. 4. Hyponatremia. 5. History of bariatric surgery. 6. Hypertension. 7. History of gastroesophageal reflux disease. 8. Anxiety. 9. Bipolar. 10.History of history of nicotine dependence. 11.Chronic back pain since admission. 12.History of gastric bypass. 13.History of chronic volvulus. RECOMMENDATION: Recommend to continue current management and symptomatic treatment. Will repeat the labs. Continue the current medications. Advance diet, EGD. The patient is not feeling better. Otherwise, patient might need an endoscopic ultrasound or even MRCP because of the previous history of gastric bypass. As far as the EKG findings are concerned, I would also recommend Cardiology evaluation and set of troponins as well. Overall prognosis guarded because of multiple complex medical issues as mentioned earlier. See orders for details. Discussed status with the patient. Further recommendation to follow. Will closely follow with multiple consultants. ALBA / JANUARY: [id number] /
--- NOTE | 2017-10-21 14:23 | P.CRDCN ---
History of Present Illness History of present illness: Mrs. Carlson is a pleasant 56-year-old female past medical history significant for hypertension, bipolar, iron deficient anemia requiring transfusions, chronic indwelling catheter and previous bariatric surgery. She denies history of coronary artery disease and has never seen a coordinator skill training program for any reason. We have been asked to see her in consultation for abnormal EKG. She presented to the hospital yesterday with symptoms of abdominal pain and abnormal urine and her catheter bag. She has been diagnosed with urinary tract infection as well as acute pancreatitis. She denies symptoms of chest pain, shortness of breath, palpitations, dizziness, nausea or vomiting. She has been seen in consultation by GI service as well as surgery. No plan for an acute intervention at this time. EKG reveals sinus mechanism with poor R-wave progression. Echocardiogram reveals preserved left ventricular systolic function with ejection fraction greater than 55%, mild MR and mild TR. Laboratory data reviewed, hemoglobin 13.3, platelets 430, sodium 137, potassium 4.2, creatinine 0.63, cardiac enzymes negative 1. Current cardiac medications include lisinopril 10 mg daily, Norvasc 10 mg daily. She also takes Cymbalta, Desyrel, Utopia, BuSpar, Tegretol, Ambien, Imitrex, Flexeril, Ventolin and Xanax. Review of Systems At the time my exam: CONSTITUTIONAL: Denies fever. Denies chills. EYES: Denies blurred vision. Denies vision changes. Denies eye pain. EARS, NOSE, MOUTH & THROAT: Denies headache. Denies sore throat. Denies ear pain. CARDIOVASCULAR: Denies chest pain. Denies shortness of breath. Denies orthopnea. Denies PND. Denies palpitations. RESPIRATORY: Denies cough. GASTROINTESTINAL: Complains of lower abdominal pain. Denies diarrhea. Denies constipation. Denies nausea. Denies vomiting. MUSCULOSKELETAL: Denies myalgias. INTEGUMENTARY: Denies pruitis. Denies rash. NEUROLOGIC: Denies numbness. Denies tingling. Denies weakness. PSYCHIATRIC: Denies anxiety. Denies depression. ENDOCRINE: Denies fatigue. Denies weight change. Denies polydipsia. Denies polyurina. GENITOURINARY: Denies burning, hematuria or urgency with micturation. HEMATOLOGIC: Denies history of anemia. Denies bleeding. Past Medical History Past Medical History: Blood Disorder, Hypertension Additional Past Medical History / Comment(s): past Obesity with previous bariatric surgery, fluctuating body weight, endometreosis,general anxiety disorder, bipolar disorder, hypertension, chronic back pain, history of iron deficiency,"low rbc's" history of anemia requiring blood transfusions, uti, falls and in may with fall had fx to lt hip but no sx, dizzy spells, chronic samuel cath- bladder only holds 100 ml's. pt stated it was changed today 10-20-17 History of Any Multi-Drug Resistant Organisms: None Reported Past Surgical History: Appendectomy, Bariatric Surgery, Bladder Surgery, Section, Cholecystectomy, Hysterectomy, Tubal Ligation Additional Past Surgical History / Comment(s): bladder suspension, gastric bypass, colon volvulus had exporatory lap w/lysis of adhesions and rt colectomy Past Anesthesia/Blood Transfusion Reactions: No Reported Reaction Additional Past Anesthesia/Blood Transfusion Reaction / Comment(s): blood trandfusion- no reaction Smoking Status: Former smoker - Past Family History Mother Family Medical History: No Reported History Additional Family Medical History / Comment(s): no history Father Family Medical History: No Reported History Additional Family Medical History / Comment(s): from alcoholism Medications and Allergies Home Medications Medication Instructions Recorded Confirmed Type ALPRAZolam [Xanax] 1 mg PO QID 03/21/16 10/20/17 History Albuterol Inhaler [Ventolin Hfa 2 puff INHALATION RT-Q4H PRN 03/21/16 10/20/17 History Inhaler] DULoxetine HCL [Cymbalta] 120 mg PO HS 03/21/16 10/20/17 History HYDROcodone/APAP 10-325MG [Utopia 1 tab PO TID PRN 03/21/16 10/20/17 History 10-325] SUMAtriptan SUCCINATE [Imitrex] 100 mg PO DAILY PRN 03/21/16 10/20/17 History carBAMazepine [TEGretol] 400 mg PO Q12H 03/21/16 10/20/17 History Zolpidem [Ambien] 10 mg PO HS PRN 04/24/16 10/20/17 History amLODIPine [Norvasc] 10 mg PO HS #30 tab 04/29/16 10/20/17 Rx Cyclobenzaprine [Flexeril] 10 mg PO DAILY PRN 12/18/16 10/20/17 History Lisinopril [Zestril] 10 mg PO DAILY 12/18/16 10/20/17 History busPIRone HCl [Buspar] 5 mg PO BID 10/20/17 10/20/17 History traZODone HCL [Desyrel] 100 mg PO HS 10/20/17 10/20/17 History Allergies Allergy/AdvReac Type Severity Reaction Status Date / Time No Known Allergies Allergy Verified 10/20/17 09:00 Physical Exam Vitals: Vital Signs Temp Pulse Pulse Resp BP BP Pulse Ox 10/21/17 08:00 104 H 16 10/21/17 05:17 97.9 F 104 H 16 122/81 96 10/20/17 23:16 16 10/20/17 21:03 98.1 F 114 H 16 137/87 96 10/20/17 17:18 108 H 146/83 10/20/17 15:27 97.6 F 113 H 18 196/104 99 10/20/17 14:28 108 H 18 172/80 96 Intake and Output 10/20/17 10/21/17 10/21/17 22:59 06:59 14:59 Intake Total 1780 Balance 1780 Intake: Intake, IV Titration 450 Amount Sodium Chloride 0.9% 1, 450 000 ml @ 75 mls/hr IV . [id number] [facility] Rx#:[id number] Oral 1330 Other: # Voids 0 2 Weight 66.224 kg Blood pressure 122/81 heart rate 104 afebrile maintaining oxygen saturation on room air GENERAL: This is a 56-year-old female in no apparent distress at the time of my examination. HEENT: Head is atraumatic, normocephalic. Pupils are equal, round. Sclerae anicteric. Conjunctivae are clear. Mucous membranes of the mouth are moist. Neck is supple. There is no jugular venous distention. No carotid bruit is heard. LUNGS: Clear to auscultation no wheezes, rales or rhonchi. No chest wall tenderness is noted on palpation or with deep breathing. HEART: Regular rate and rhythm without murmurs, rubs or gallops. S1 and S2 heard. ABDOMEN: Soft, nontender. Bowel sounds are heard. No organomegaly noted. EXTREMITIES: No evidence of peripheral edema and no calf tenderness noted. VASCULAR: Radial and dorsalis pedis pulses palpated, no evidence of clubbing. NEUROLOGIC: Patient is awake, alert and oriented x3. Results 10/21/17 07:36 10/21/17 07:36 Cardiac Enzymes 10/21/17 10/21/17 Range/Units 07:36 07:36 AST 23 (14-36) U/L Troponin I 0.023 (0.000-0.034) ng/mL Lipids 10/21/17 Range/Units 07:36 Triglycerides 77 (<150) mg/dL CBC 10/21/17 Range/Units 07:36 WBC 4.2 (3.8-10.6) k/uL RBC 4.78 (3.80-5.40) m/uL Hgb 13.3 (11.4-16.0) gm/dL Hct 43.4 (34.0-46.0) % Plt Count 430 (150-450) k/uL Comprehensive Metabolic Panel 10/21/17 Range/Units 07:36 Sodium 137 (137-145) mmol/L Potassium 4.2 (3.5-5.1) mmol/L Chloride 99 (98-107) mmol/L Carbon Dioxide 27 (22-30) mmol/L BUN <2 L (7-17) mg/dL Creatinine 0.63 (0.52-1.04) mg/dL Glucose 103 H (74-99) mg/dL Calcium 9.2 (8.4-10.2) mg/dL AST 23 (14-36) U/L ALT 36 (9-52) U/L Alkaline Phosphatase 188 H (38-126) U/L Total Protein 6.1 L (6.3-8.2) g/dL Albumin 3.7 (3.5-5.0) g/dL Current Medications Generic Name Dose Route Start Last Admin Trade Name Freq PRN Reason Stop Dose Admin Acetaminophen 650 mg 10/20/17 10:32 Tylenol Tab PO Q6HR PRN Mild Pain or Fever > 100.5 Hydrocodone Bitart/Acetaminophen 1 each 10/20/17 10:34 10/21/17 09:43 Utopia 10 PO 1 each Q6H PRN Administration MODERATE Pain Albuterol Sulfate 2.5 mg 10/20/17 15:02 Ventolin Nebulized INHALATION RT-Q4H PRN Shortness Of Breath Alprazolam 1 mg 10/20/17 13:00 10/21/17 12:58 Xanax PO 1 mg QID [facility] Administration Amlodipine Besylate 10 mg 10/20/17 21:00 10/20/17 20:36 Norvasc PO 10 mg HS [facility] Administration Buspirone HCl 5 mg 10/20/17 21:00 10/21/17 09:09 Buspar PO 5 mg BID [facility] Administration Carbamazepine 400 mg 10/20/17 11:00 10/21/17 09:09 Tegretol PO 400 mg Q12HR [facility] Administration Ceftriaxone Sodium 1,000 mg 10/21/17 09:00 10/21/17 09:08 Rocephin IVP 1,000 mg Q24HR [facility] Administration Cyclobenzaprine HCl 10 mg 10/20/17 10:34 Flexeril PO DAILY PRN Muscle Spasm Duloxetine HCl 120 mg 10/20/17 21:00 10/21/17 09:09 Cymbalta PO 120 mg HS [facility] Administration Heparin Sodium (Porcine) 5,000 unit 10/20/17 21:00 10/21/17 09:08 Heparin SQ 5,000 unit Q12HR [facility] Administration Sodium Chloride 1,000 mls @ 75 mls/hr 10/20/17 10:45 10/21/17 12:59 Saline 0.9% IV 75 mls/hr .[id number] [facility] Administration Ketorolac Tromethamine 30 mg 10/20/17 10:32 Toradol IVP 10/25/17 10:33 Q6HR PRN Moderate Pain Lisinopril 10 mg 10/21/17 09:00 10/21/17 09:09 Zestril PO 10 mg DAILY [facility] Administration Morphine Sulfate 4 mg 10/20/17 10:32 Morphine Sulfate (Inj) IV Q4HR PRN Severe Pain Ondansetron HCl 4 mg 10/20/17 10:32 10/20/17 22:50 Zofran IVP 4 mg Q8HR PRN Administration Nausea And Vomiting Pantoprazole Sodium 40 mg 10/20/17 21:00 10/21/17 09:08 Protonix IVP 40 mg BID [facility] Administration Sumatriptan Succinate 100 mg 10/20/17 10:34 10/21/17 06:35 Imitrex PO 100 mg DAILY PRN Administration Migraine Headache Temazepam 15 mg 10/20/17 15:04 Restoril PO HS PRN Insomnia Trazodone HCl 100 mg 10/20/17 21:00 10/20/17 20:36 Desyrel PO 100 mg HS [facility] Administration Zolpidem Tartrate 10 mg 10/20/17 10:34 Ambien PO HS PRN Insomnia Intake and Output 10/20/17 10/21/17 10/21/17 22:59 06:59 14:59 Intake Total 1780 Balance 1780 Intake: Intake, IV Titration 450 Amount Sodium Chloride 0.9% 1, 450 000 ml @ 75 mls/hr IV . [id number] [facility] Rx#:[id number] Oral 1330 Other: # Voids 0 2 Weight 66.224 kg Patient Weight 10/22/17 06:59 Weight 66.224 kg 10/21/17 07:36 10/21/17 07:36 Assessment and Plan Assessment: ASSESSMENT Abnormal EKG with evidence of poor R-wave progression. No symptoms of angina. Acute pancreatitis, amylase 182 on admission down to 86 today, lipase 793 on admission down to 377 today. Urinary tract infection Hypertension, controlled PLAN Echocardiogram has been ordered and obtained and reveals preserved left ventricular systolic function with no evidence of heart failure. Ongoing medical management of acute pancreatitis and urinary tract infection. No further cardiac workup at this time. Follow-up with Dr. Jackman in 2-3 weeks for outpatient stress testing. Thank you kindly for this consultation. Nurse Practitioner note has been reviewed, I agree with a documented findings and plan of care. Patient was seen and examined.
--- NOTE | 2017-10-21 16:20 | P.PN ---
Subjective Progress Note Date: 10/21/17 Principal diagnosis: Epigastric pain, GERD Patient feels better today. Her nausea and vomiting have improved. She is tolerating liquids. She is asking for more to drink. She was seen by GI earlier today. Pancreatic enzymes improved. Objective - Vital Signs Vital signs: Vital Signs Temp 98.3 F 10/21/17 13:59 Pulse 108 H 10/21/17 13:59 Resp 16 10/21/17 13:59 BP 154/89 10/21/17 13:59 Pulse Ox 94 L 10/21/17 13:59 Intake & Output 10/20/17 10/21/17 10/21/17 18:59 06:59 18:59 Intake Total 1780 Balance 1780 Weight 66.224 kg 66.224 kg Intake: Intake, IV Titration 450 Amount Sodium Chloride 0.9% 1, 450 000 ml @ 75 mls/hr IV . [id number] [facility] Rx#:[id number] Oral 1330 Other: # Voids 0 2 - Exam Abdomen: Soft, nondistended, mild epigastric tenderness - Labs CBC & Chem 7: 10/21/17 07:36 10/21/17 07:36 Labs: Abnormal Lab Results - Last 24 Hours (Table) 10/21/17 10/21/17 10/21/17 Range/Units 05:56 07:36 07:36 MCHC 30.8 L (31.0-37.0) g/dL RDW 17.6 H (11.5-15.5) % BUN <2 L (7-17) mg/dL Glucose 103 H (74-99) mg/dL Alkaline Phosphatase 188 H (38-126) U/L Total Protein 6.1 L (6.3-8.2) g/dL Lipase 377 H (23-300) U/L Urine Opiates Screen Detected H (NotDetected) U Benzodiazepines Scrn Detected H (NotDetected) Microbiology - Last 24 Hours (Table) 10/20/17 09:31 Urine Culture - Final Urine,Catheterized 10/20/17 09:31 Blood Culture - Preliminary Blood No Growth after 24 hours Assessment and Plan (1) Intractable vomiting Narrative/Plan: Continue clear liquids for now. Increase diet tomorrow if tolerates. Possible upper endoscopy as outpatient. Agree with GIs evaluation. Consider outpatient endoscopic ultrasound. Current Visit: Yes Status: Acute Code(s): R11.10 - VOMITING, UNSPECIFIED SNOMED Code(s): 852394085
[2017-10-21] MEDS: amLODIPine 10 MG TAB PO SCH (20:08)
[2017-10-21] MEDS: traZODone HCL 100 MG TAB PO SCH (20:08)
[2017-10-21] MEDS ORDERED: MORPHINE ORAL SOLN 10 MG/5 ML CUP PO PRN (20:46)
[2017-10-22 02:35] LABS: Anisocytosis Slight; Basophils % (A) 1 %; Eosinophils # (A) 0.2 k/uL (0-0.7); Eosinophils % (A) 4 %; HCT 39.8 % (34.0-46.0); HGB 12.1 gm/dL (11.4-16.0); Hypochromasia Slight; Lymphocytes # (A) 1.4 k/uL (1.0-4.8); Lymphocytes % (A) 39 %; MCH 27.8 pg (25.0-35.0); MCHC 30.5 g/dL (31.0-37.0); MCV 91.1 fL (80.0-100.0); Mean Platelet Volume 6.1; Monocytes # (A) 0.2 k/uL (0-1.0); Monocytes % (A) 6 %; Neutrophils # (A) 1.7 k/uL (1.3-7.7); Neutrophils % (A) 48 %; Platelet Count 395 k/uL (150-450); RBC 4.36 m/uL (3.80-5.40); RDW 17.3 % (11.5-15.5); WBC 3.6 k/uL (3.8-10.6)
[2017-10-22 02:46] LABS: ALT 32 U/L (9-52); AST 17 U/L (14-36); Albumin 2.9 g/dL (3.5-5.0); Alkaline Phosphatase 142 U/L (38-126); Amylase 126 U/L (30-110); Anion Gap 6 mmol/L; Blood Urea Nitrogen <2 mg/dL (7-17); Calcium 8.6 mg/dL (8.4-10.2); Carbon Dioxide 26 mmol/L (22-30); Chloride 104 mmol/L (98-107); Glucose 100 mg/dL (74-99); Lipase 991 U/L (23-300); Sodium 136 mmol/L (137-145); Total Bilirubin <0.1 mg/dL (0.2-1.3); Total Protein 5.1 g/dL (6.3-8.2)
[2017-10-22 03:00] LABS: Potassium 2.9 mmol/L (3.5-5.1)
[2017-10-22] MEDS ORDERED: Potassium Replacement Protocol 1 EACH MISC MISCELLANE PRN (03:02)
[2017-10-22] MEDS: SODIUM CHLORIDE 0.9% 1,000 ML IV SCH (04:02)
[2017-10-22] MEDS: POTASSIUM CHLORIDE ER 20 MEQ TAB.ER PO SCH ×3 (04:03→05:36)
[2017-10-22] MEDS: HYDROcodone/APAP 10-325MG 1 EACH TAB PO PRN (05:36)
[2017-10-22] MEDS: ONDANSETRON 4 MG/2 ML VIAL IVP PRN (05:39)
[2017-10-22] MEDS: ALPRAZolam 1 MG TAB PO SCH ×3 (09:00→17:41)
[2017-10-22] MEDS: busPIRone HCl 5 MG TAB PO SCH ×2 (09:01→21:21)
[2017-10-22] MEDS: carBAMazepine 200 MG TAB PO SCH ×2 (09:01→21:21)
[2017-10-22] MEDS: HEPARIN SODIUM,PORCINE 5,000 UNIT/ML 1 ML VIAL SQ SCH ×2 (09:02→21:20)
[2017-10-22] MEDS: cefTRIAXone IN SWFI 1,000 MG/10 ML SYRINGE IVP SCH (09:02)
[2017-10-22] MEDS: LISINOPRIL 10 MG TAB PO SCH (09:03)
[2017-10-22] MEDS: PANTOPRAZOLE 40 MG/10 ML VIAL IVP SCH ×2 (09:04→21:21)
[2017-10-22] MEDS: SUMAtriptan SUCCINATE 50 MG TAB PO PRN (09:25)
[2017-10-22] MEDS ORDERED: ONDANSETRON 4 MG/2 ML VIAL IVP STA (10:14)
--- NOTE | 2017-10-22 10:16 | P.PN ---
Subjective Progress Note Date: 10/22/17 Principal diagnosis: Pancreatitis Increase in epigastric abdominal discomfort this morning with nausea and no emesis. Afebrile. Pancreatic enzymes increase this morning. Triglyceride level and CA-19-9 unremarkable. Objective - Vital Signs Vital signs: Vital Signs Temp 97.6 F 10/22/17 05:17 Pulse 104 H 10/22/17 05:17 Resp 16 10/22/17 05:17 BP 142/76 10/22/17 05:17 Pulse Ox 99 10/22/17 05:17 Intake & Output 10/21/17 10/22/17 10/22/17 18:59 06:59 18:59 Intake Total 1780 490 Balance 1780 490 Weight 66.224 kg Intake: Intake, IV Titration 450 250 Amount Sodium Chloride 0.9% 1, 450 250 000 ml @ 75 mls/hr IV . [id number] [facility] Rx#:[id number] Oral 1330 240 Other: Voiding Method Indwelling Catheter Indwelling Catheter # Voids 2 2 - Exam General appearance: The patient is alert, oriented, in no acute distress. HET: Head is normocephalic and atraumatic. Pupils are equal and reactive. Oropharynx is clear without lesions. Neck: Supple without lymphadenopathy. Trachea midline. Heart: S1 S2. Regular rate and rhythm. Lungs: No crackles or wheezes are heard. Abdomen: Soft, midepigastric tenderness, nondistended with bowel sounds. No peritoneal signs. No palpable organomegaly or masses. Extremities: Normal skin color and turgor. No cyanosis, rash, ulceration, clubbing, or edema. Radial and pedal pulses are 2/4 bilaterally. Storey clear rahul urine. Neurological: No focal deficits. Strength and sensation are grossly intact. - Labs CBC & Chem 7: 10/22/17 02:19 10/22/17 10:52 Labs: Abnormal Lab Results - Last 24 Hours (Table) 10/22/17 10/22/17 Range/Units 02:19 02:19 WBC 3.6 L (3.8-10.6) k/uL MCHC 30.5 L (31.0-37.0) g/dL RDW 17.3 H (11.5-15.5) % Sodium 136 L (137-145) mmol/L Potassium 2.9 L* (3.5-5.1) mmol/L BUN <2 L (7-17) mg/dL Glucose 100 H (74-99) mg/dL Total Bilirubin <0.1 L (0.2-1.3) mg/dL Alkaline Phosphatase 142 H (38-126) U/L Total Protein 5.1 L (6.3-8.2) g/dL Albumin 2.9 L (3.5-5.0) g/dL Amylase 126 H (30-110) U/L Lipase 991 H (23-300) U/L Microbiology - Last 24 Hours (Table) 10/20/17 09:31 Urine Culture - Final Urine,Catheterized 10/20/17 09:31 Blood Culture - Preliminary Blood No Growth after 24 hours Assessment and Plan (1) Acute pancreatitis Narrative/Plan: 56-year-old female with a history of chronic indwelling Storey catheter and chronic UTIs admitted with acute UTI with elevated pancreatic enzymes consistent with acute pancreatitis. Etiology of pancreatitis unclear. History of dilated biliary tree with normal liver enzymes. Previous MRI pancreas imaging suggestive of possible CBD stricture disease. Other differentials to consider is peptic ulcer disease possible medication related but medications felt to be less likely. Current Visit: Yes Status: Acute Code(s): K85.90 - ACUTE PANCREATITIS WITHOUT NECROSIS OR INFECTION, UNSP SNOMED Code(s): 219300087 (2) History of gastric bypass Current Visit: Yes Status: Acute Code(s): Z98.84 - BARIATRIC SURGERY STATUS SNOMED Code(s): 160645159 (3) UTI (urinary tract infection) Current Visit: Yes Status: Acute Code(s): N39.0 - URINARY TRACT INFECTION, SITE NOT SPECIFIED SNOMED Code(s): 63957928 Plan: 1. Patient is receiving Protonix 40 mg IV twice daily. Continue with antinausea medications. Decrease diet to clear liquids. Outpatient endoscopic ultrasound recommended GI office will assist with scheduling. Repeat CMP/ pancreatic enzymes in a.m. We'll continue to follow with you. Assessment and plan a care discussed with Dr. Jackman
[2017-10-22 11:27] LABS: ALT 37 U/L (9-52); AST 21 U/L (14-36); Albumin 3.7 g/dL (3.5-5.0); Alkaline Phosphatase 175 U/L (38-126); Anion Gap 10 mmol/L; Blood Urea Nitrogen <2 mg/dL (7-17); Calcium 9.2 mg/dL (8.4-10.2); Carbon Dioxide 25 mmol/L (22-30); Chloride 102 mmol/L (98-107); Glucose 70 mg/dL (74-99); Magnesium 1.6 mg/dL (1.6-2.3); Potassium 3.4 mmol/L (3.5-5.1); Sodium 137 mmol/L (137-145); Total Bilirubin 0.1 mg/dL (0.2-1.3); Total Protein 6.3 g/dL (6.3-8.2)
[2017-10-22] MEDS: MORPHINE SULFATE 2 MG/ML SYRINGE IVP PRN ×3 (11:37→21:32)
[2017-10-22] MEDS ORDERED: SODIUM CHLORIDE 0.9% 1,000 ML with POTASSIUM CHLORIDE 40 MEQ IV SCH ×2 (11:45)
--- NOTE | 2017-10-22 12:33 | P.PN ---
Subjective Progress Note Date: 10/22/17 Principal diagnosis: Epigastric pain, GERD Patient ate some solid food this morning and following that develop some nausea and vomiting. She had some ongoing discomfort as well. Lipase increased today. CA-19-9 was normal. Objective - Vital Signs Vital signs: Vital Signs Temp 97.6 F 10/22/17 05:17 Pulse 104 H 10/22/17 05:17 Resp 16 10/22/17 05:17 BP 142/76 10/22/17 05:17 Pulse Ox 99 10/22/17 05:17 Intake & Output 10/21/17 10/22/17 10/22/17 18:59 06:59 18:59 Intake Total 1780 490 Balance 1780 490 Weight 66.224 kg Intake: Intake, IV Titration 450 250 Amount Sodium Chloride 0.9% 1, 450 250 000 ml @ 75 mls/hr IV . [id number] [facility] Rx#:[id number] Oral 1330 240 Other: Voiding Method Indwelling Catheter Indwelling Catheter # Voids 2 2 - Exam Abdomen: Soft, mild epigastric tenderness - Labs CBC & Chem 7: 10/22/17 02:19 10/22/17 10:52 Labs: Abnormal Lab Results - Last 24 Hours (Table) 10/22/17 10/22/17 10/22/17 Range/Units 02:19 02:19 10:52 WBC 3.6 L (3.8-10.6) k/uL MCHC 30.5 L (31.0-37.0) g/dL RDW 17.3 H (11.5-15.5) % Sodium 136 L (137-145) mmol/L Potassium 2.9 L* 3.4 L (3.5-5.1) mmol/L BUN <2 L <2 L (7-17) mg/dL Creatinine 0.50 L (0.52-1.04) mg/dL Glucose 100 H 70 L (74-99) mg/dL Total Bilirubin <0.1 L 0.1 L (0.2-1.3) mg/dL Alkaline Phosphatase 142 H 175 H (38-126) U/L Total Protein 5.1 L (6.3-8.2) g/dL Albumin 2.9 L (3.5-5.0) g/dL Amylase 126 H (30-110) U/L Lipase 991 H (23-300) U/L Microbiology - Last 24 Hours (Table) 10/20/17 09:31 Blood Culture - Preliminary Blood No Growth after 48 hours 10/20/17 09:31 Urine Culture - Final Urine,Catheterized Assessment and Plan (1) Intractable vomiting Narrative/Plan: Decreased diet to full liquids for now. Recheck labs tomorrow. Current Visit: Yes Status: Acute Code(s): R11.10 - VOMITING, UNSPECIFIED SNOMED Code(s): 386340408
[2017-10-22] MEDS: 0.9% NACL WITH KCL 40 MEQ/L 1,000 ML IV SCH (12:59)
[2017-10-22] MEDS ORDERED: LORazepam 2 MG/ML INJ IV PRN (13:38)
--- NOTE | 2017-10-22 15:02 | PN ---
PROGRESS NOTE DATE OF SERVICE: 10/22/2017 This is a 56-year-old woman with a past medical history of multiple medical problems, admitted with features of acute pancreatitis. The patient is complaining of abdominal pain, amylase, lipase levels are high today. No chest pain. No palpitations. No fever. PHYSICAL EXAM: Alert and oriented x3. The pulse is 104, blood pressure 140/76, respiration 16, temperature 97.6, pulse ox 91% on room air. HEENT: Conjunctivae normal. Neck is no jugular venous distension. CARDIOVASCULAR: S1, S, muffled. RESPIRATION: Breath sounds diminished at the bases, no rhonchi, no crackles. Abdomen is soft, mild diffuse tenderness. LEGS: No edema, no swelling. NERVOUS SYSTEM: No focal deficits. LABS: WBC 3.6, hemoglobin is 12.8, sodium 135, potassium 3.4. ASSESSMENT: 1. Abdominal pain, possible acute pancreatitis. 2. Urinary tract infection. 3. Non-progressive R-waves on the EKG. 4. Hyponatremia. 5. History of bariatric surgery. 6. Hypertension. 7. History of gastroesophageal reflux disease. 8. Anxiety. 9. Bipolar. 10.Remote history of nicotine dependence. 11.Chronic back pain since admission. 12.History of gastric bypass. 13.History of chronic volvulus. RECOMMENDATION: Recommend to continue current management and symptomatic treatment. Otherwise at this time, I would also recommend MRCP and continue to monitor. Guarded prognosis. Further recommendations to follow. Closely follow with Surgery. MMYENIFERL / LIBBYN: [id number] /
--- NOTE | 2017-10-22 16:34 | CT ---
EXAMINATION TYPE: CT pancreas biphase DATE OF EXAM: 10/22/2017 COMPARISON: 12/19/2016 HISTORY: 56-year-old female with pain, Pancreatitis TECHNIQUE: Contiguous axial scanning of the abdomen following administration of 100 ml Isovue-370 IV contrast. Coronal/sagittal reconstructions performed. CT DLP: 316.6 mGycm Automated exposure control for dose reduction was used. FINDINGS: Partially visualized bilateral breast implants. Heart normal size without pericardial effusion. A sma ll hiatal hernia. Post surgical changes of Tati-en-Y gastric bypass. No abnormality identified at eit her the upper or lower anastomosis. Patient is status post cholecystectomy. Suspect peribiliary cysts at the carole hepatis measuring up t o 5.3 x 2.2 cm, not significantly changed. Stable prominence to the bile duct at 9 mm and stable mild to moderate intrahepatic biliary ductal dilatation. Portal venous system is patent. Adrenal glands, left kidney, and spleen show no gross abnormal body. 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 Pancreas is atrophic with mild prominence to the main pancreatic duct, mildly dilated at 4 mm. This a ppears increased as compared to 12/19/2016. No distal obstructing mass is identified. No peripancreati c fluid collection. Relatively homogeneous enhancement throughout the pancreas. No dilated small bowel, free fluid, or free air. There is right hemicolectomy with ileocolonic anasto mosis at the transverse colon. Prominent fluid-filled small bowel loops and colon. No mesenteric or retroperitoneal lymphadenopathy seen. Bones: No osseous destructive process. IMPRESSION: 1. NO SPECIFIC CT FINDINGS OF ACUTE PANCREATITIS. THE MAIN PANCREATIC DUCT IS BORDERLINE TO MILDLY DI LATED AT 4 MM, SLIGHTLY INCREASED FROM PRIOR. NO OBSTRUCTING LESION IS IDENTIFIED. NOTE THAT MILD ACU TE PANCREATITIS MAY NOT BE EVIDENT BY CT. 2. SUSPECT PERIBILIARY CYSTS AT THE CAROLE HEPATIS MEASURING UP TO 5.3 CM, SIMILAR TO 12/19/2016. SIMIL AR MILD TO MODERATE INTRAHEPATIC BILIARY DUCTAL DILATATION. 3. SMALL HIATAL HERNIA WITH POSTSURGICAL CHANGES OF TATI-EN-Y GASTRIC BYPASS. 4. PROMINENT FLUID-FILLED SMALL BOWEL LOOPS AND FLUID WITHIN THE COLON WELL. CORRELATE FOR POSSIBL E ENTERITIS.
[2017-10-22] MEDS: amLODIPine 10 MG TAB PO SCH (21:21)
[2017-10-22] MEDS: DULoxetine HCL 60 MG CAPSULE.DR PO SCH (21:21)
[2017-10-22] MEDS: traZODone HCL 100 MG TAB PO SCH (21:22)
[2017-10-23] MEDS ORDERED: ALPRAZolam 1 MG TAB ONE (03:20)
[2017-10-23] MEDS: ALPRAZolam 1 MG TAB PO SCH ×5 (04:56→22:08)
[2017-10-23] MEDS: 0.9% NACL WITH KCL 40 MEQ/L 1,000 ML IV SCH ×2 (04:57→15:59)
[2017-10-23] MEDS: MORPHINE SULFATE 2 MG/ML SYRINGE IVP PRN ×3 (06:06→19:57)
[2017-10-23 07:50] LABS: Anisocytosis Slight; Basophils % (A) 1 %; Eosinophils # (A) 0.1 k/uL (0-0.7); Eosinophils % (A) 4 %; HCT 38.6 % (34.0-46.0); HGB 12.3 gm/dL (11.4-16.0); Lymphocytes # (A) 0.9 k/uL (1.0-4.8); Lymphocytes % (A) 32 %; MCV 90.8 fL (80.0-100.0); Mean Platelet Volume 7.2; Monocytes # (A) 0.2 k/uL (0-1.0); Monocytes % (A) 8 %; Neutrophils # (A) 1.5 k/uL (1.3-7.7); Neutrophils % (A) 54 %; Platelet Count 331 k/uL (150-450); RBC 4.24 m/uL (3.80-5.40); RDW 17.7 % (11.5-15.5); WBC 2.8 k/uL (3.8-10.6)
[2017-10-23 07:53] LABS: ALT 32 U/L (9-52); AST 15 U/L (14-36); Albumin 3.4 g/dL (3.5-5.0); Alkaline Phosphatase 150 U/L (38-126); Amylase 98 U/L (30-110); Anion Gap 9 mmol/L; Blood Urea Nitrogen <2 mg/dL (7-17); Calcium 8.9 mg/dL (8.4-10.2); Carbon Dioxide 23 mmol/L (22-30); Chloride 101 mmol/L (98-107); Glucose 97 mg/dL (74-99); Lipase 425 U/L (23-300); Potassium 4.2 mmol/L (3.5-5.1); Sodium 133 mmol/L (137-145); Total Bilirubin 0.1 mg/dL (0.2-1.3); Total Protein 5.7 g/dL (6.3-8.2)
[2017-10-23] MEDS: ONDANSETRON 4 MG/2 ML VIAL IVP PRN (08:16)
[2017-10-23] MEDS: PANTOPRAZOLE 40 MG/10 ML VIAL IVP SCH ×2 (08:17→20:05)
[2017-10-23] MEDS: HEPARIN SODIUM,PORCINE 5,000 UNIT/ML 1 ML VIAL SQ SCH ×2 (08:17→20:05)
[2017-10-23] MEDS: busPIRone HCl 5 MG TAB PO SCH ×2 (08:17→20:04)
[2017-10-23] MEDS: LISINOPRIL 10 MG TAB PO SCH (08:17)
[2017-10-23] MEDS: cefTRIAXone IN SWFI 1,000 MG/10 ML SYRINGE IVP SCH (08:17)
[2017-10-23] MEDS: carBAMazepine 200 MG TAB PO SCH ×2 (08:18→20:05)
[2017-10-23] MEDS: HYDROcodone/APAP 10-325MG 1 EACH TAB PO PRN (09:52)
[2017-10-23] MEDS: SUMAtriptan SUCCINATE 50 MG TAB PO PRN (10:55)
--- NOTE | 2017-10-23 12:25 | P.PN ---
Subjective Progress Note Date: 10/23/17 Principal diagnosis: Pancreatitis Feels better today. Abdominal pain improved. Lipase improved. Requesting diet advancement. Objective - Vital Signs Vital signs: Vital Signs Temp 97.5 F L 10/23/17 05:00 Pulse 109 H 10/23/17 05:00 Resp 16 10/23/17 05:00 BP 109/66 10/23/17 05:00 Pulse Ox 94 L 10/23/17 05:00 Intake & Output 10/22/17 10/23/17 10/23/17 18:59 06:59 18:59 Intake Total 600 1450 990 Balance 600 1450 990 Weight 66.224 kg Intake: Intake, IV Titration 600 750 Amount 0.9% NaCl with KCl 40 Meq 225 750 /l 1,000 ml @ 75 mls/hr IV .[id number] [facility] Rx#: [id number] Sodium Chloride 0.9% 1, 375 000 ml @ 75 mls/hr IV . [id number] [facility] Rx#:[id number] Oral 1450 240 Other: Voiding Method Indwelling Catheter Indwelling Catheter Indwelling Catheter # Voids 2 - Exam General appearance: The patient is alert, oriented, in no acute distress. HET: Head is normocephalic and atraumatic. Pupils are equal and reactive. Oropharynx is clear without lesions. Neck: Supple without lymphadenopathy. Trachea midline. Heart: S1 S2. Regular rate and rhythm. Lungs: No crackles or wheezes are heard. Abdomen: Soft, midepigastric tenderness, nondistended with bowel sounds. No peritoneal signs. No palpable organomegaly or masses. Extremities: Normal skin color and turgor. No cyanosis, rash, ulceration, clubbing, or edema. Radial and pedal pulses are 2/4 bilaterally. Storey clear rahul urine. Neurological: No focal deficits. Strength and sensation are grossly intact. - Labs CBC & Chem 7: 10/23/17 06:31 10/23/17 06:31 Labs: Abnormal Lab Results - Last 24 Hours (Table) 10/23/17 10/23/17 Range/Units 06:31 06:31 WBC 2.8 L (3.8-10.6) k/uL RDW 17.7 H (11.5-15.5) % Lymphocytes # 0.9 L (1.0-4.8) k/uL Sodium 133 L (137-145) mmol/L BUN <2 L (7-17) mg/dL Total Bilirubin 0.1 L (0.2-1.3) mg/dL Alkaline Phosphatase 150 H (38-126) U/L Total Protein 5.7 L (6.3-8.2) g/dL Albumin 3.4 L (3.5-5.0) g/dL Lipase 425 H (23-300) U/L Microbiology - Last 24 Hours (Table) 10/20/17 09:31 Blood Culture - Preliminary Blood No Growth after 72 hours Assessment and Plan (1) Acute pancreatitis Narrative/Plan: 56-year-old female with a history of chronic indwelling Storey catheter and chronic UTIs admitted with acute UTI with elevated pancreatic enzymes consistent with acute pancreatitis. Etiology of pancreatitis unclear. History of dilated biliary tree with normal liver enzymes. Previous MRI pancreas imaging suggestive of possible CBD stricture disease. Other differentials to consider is medication related but felt to be less likely. Current Visit: Yes Status: Acute Code(s): K85.90 - ACUTE PANCREATITIS WITHOUT NECROSIS OR INFECTION, UNSP SNOMED Code(s): 288986733 (2) History of gastric bypass Current Visit: Yes Status: Acute Code(s): Z98.84 - BARIATRIC SURGERY STATUS SNOMED Code(s): 510969759 (3) UTI (urinary tract infection) Current Visit: Yes Status: Acute Code(s): N39.0 - URINARY TRACT INFECTION, SITE NOT SPECIFIED SNOMED Code(s): 81851705 Plan: 1. ERCP/EUS arranged through [facility] system; [facility] will notify patient in next 2-4 business days. 2. Low-fat diet. Supportive measures. Assessment and plan a care discussed with Dr. Jackman
--- NOTE | 2017-10-23 15:25 | P.PN ---
Subjective Progress Note Date: 10/23/17 Principal diagnosis: Epigastric pain, GERD Patient feels better today. Pains is improved. She is tolerating her diet. Labs are likewise improved. CAT scan shows no significant new changes from prior CAT scan. Objective - Vital Signs Vital signs: Vital Signs Temp 97.6 F 10/23/17 14:04 Pulse 109 H 10/23/17 14:04 Resp 16 10/23/17 14:04 BP 131/80 10/23/17 14:04 Pulse Ox 97 10/23/17 14:04 Intake & Output 10/22/17 10/23/17 10/23/17 18:59 06:59 18:59 Intake Total 600 1450 2790 Balance 600 1450 2790 Weight 66.224 kg Intake: Intake, IV Titration 600 1350 Amount 0.9% NaCl with KCl 40 Meq 225 1350 /l 1,000 ml @ 75 mls/hr IV .[id number] [facility] Rx#: [id number] Sodium Chloride 0.9% 1, 375 000 ml @ 75 mls/hr IV . [id number] [facility] Rx#:[id number] Oral 1450 1440 Other: Voiding Method Indwelling Catheter Indwelling Catheter Indwelling Catheter # Voids 2 - Exam Abdomen: Soft, nondistended, mild epigastric tenderness - Labs CBC & Chem 7: 10/23/17 06:31 10/23/17 06:31 Labs: Abnormal Lab Results - Last 24 Hours (Table) 10/23/17 10/23/17 Range/Units 06:31 06:31 WBC 2.8 L (3.8-10.6) k/uL RDW 17.7 H (11.5-15.5) % Lymphocytes # 0.9 L (1.0-4.8) k/uL Sodium 133 L (137-145) mmol/L BUN <2 L (7-17) mg/dL Total Bilirubin 0.1 L (0.2-1.3) mg/dL Alkaline Phosphatase 150 H (38-126) U/L Total Protein 5.7 L (6.3-8.2) g/dL Albumin 3.4 L (3.5-5.0) g/dL Lipase 425 H (23-300) U/L Microbiology - Last 24 Hours (Table) 10/20/17 09:31 Blood Culture - Preliminary Blood No Growth after 72 hours Assessment and Plan (1) Intractable vomiting Narrative/Plan: Agree with advancing diet. Outpatient EUS arranged by GI. Likely discharge tomorrow. Current Visit: Yes Status: Acute Code(s): R11.10 - VOMITING, UNSPECIFIED SNOMED Code(s): 107786491
--- NOTE | 2017-10-23 18:45 | PN ---
PROGRESS NOTE DATE OF SERVICE: 10/23/2017 This 56-year-old woman presented with acute pancreatitis, also had significant possibly complicated biliary system as well as possible stenosis. The patient had biliary stricture apparently previously. Gastroenterology planning a referral for endoscopic ultrasound. No chest pain. No palpitations. No fever. Surgery is following the patient closely. EXAM: Alert and oriented x3. Pulse is 109, blood pressure 109/60, respirations 16, temperature 97.4, pulse ox 94% on room air. HEENT: Conjunctivae normal. NECK: No jugular venous distention. CARDIOVASCULAR: S1, S2 muffled. RESPIRATORY: Breath sounds diminished in the bases. No rhonchi. No crackles. ABDOMEN: Soft. Mild diffuse tenderness. LEGS: No edema. NERVOUS SYSTEM: No focal deficits. LABS: WBC 2.9, hemoglobin is 12.3. Sodium 133 and lipase is 425. ASSESSMENT: 1. Abdominal pain, possible acute pancreatitis. 2. Urinary tract infection. 3. Nonprogressive R wave on the EKG. 4. Hyponatremia. 5. History of bariatric surgery. 6. Hypertension. 7. History of gastroesophageal reflux disease. 8. Anxiety. 9. Bipolar. 10.Remote history of nicotine dependence. 11.Chronic low back pain. 12.History of gastric bypass. RECOMMENDATIONS AND DISCUSSION: Recommend to continue current medical management and continue symptomatic treatment. Otherwise, advance diet. Repeat labs. Guarded prognosis because of multiple complex medical issues. Further recommendations to follow. MMODL / IJN: [id number] /
[2017-10-23] MEDS: amLODIPine 10 MG TAB PO SCH (20:04)
[2017-10-23] MEDS: DULoxetine HCL 60 MG CAPSULE.DR PO SCH (20:05)
[2017-10-23] MEDS: traZODone HCL 100 MG TAB PO SCH (22:08)
[2017-10-24] MEDS: MORPHINE SULFATE 2 MG/ML SYRINGE IVP PRN (00:14)
[2017-10-24] MEDS: HYDROcodone/APAP 10-325MG 1 EACH TAB PO PRN (05:44)
[2017-10-24] MEDS: 0.9% NACL WITH KCL 40 MEQ/L 1,000 ML IV SCH (05:46)
[2017-10-24 05:57] VITALS: BP 129/85; PULSE 74; RESP 18; TEMP 97.6
[2017-10-24 07:55] LABS: Anisocytosis Slight; Basophils % (A) 1 %; Eosinophils # (A) 0.1 k/uL (0-0.7); Eosinophils % (A) 3 %; HCT 39.7 % (34.0-46.0); HGB 12.3 gm/dL (11.4-16.0); Lymphocytes % (A) 31 %; MCH 28.3 pg (25.0-35.0); MCHC 30.9 g/dL (31.0-37.0); MCV 91.5 fL (80.0-100.0); Mean Platelet Volume 6.9; Monocytes # (A) 0.2 k/uL (0-1.0); Monocytes % (A) 6 %; Neutrophils # (A) 1.9 k/uL (1.3-7.7); Neutrophils % (A) 58 %; Platelet Count 341 k/uL (150-450); RBC 4.34 m/uL (3.80-5.40); RDW 17.6 % (11.5-15.5); WBC 3.3 k/uL (3.8-10.6)
[2017-10-24 08:07] LABS: ALT 27 U/L (9-52); AST 15 U/L (14-36); Albumin 3.5 g/dL (3.5-5.0); Alkaline Phosphatase 145 U/L (38-126); Amylase 94 U/L (30-110); Anion Gap 8 mmol/L; Blood Urea Nitrogen 3 mg/dL (7-17); Carbon Dioxide 25 mmol/L (22-30); Chloride 98 mmol/L (98-107); Glucose 102 mg/dL (74-99); Lipase 219 U/L (23-300); Potassium 5.3 mmol/L (3.5-5.1); Sodium 131 mmol/L (137-145); Total Bilirubin 0.2 mg/dL (0.2-1.3); Total Protein 5.9 g/dL (6.3-8.2)
[2017-10-24] MEDS: HEPARIN SODIUM,PORCINE 5,000 UNIT/ML 1 ML VIAL SQ SCH (08:51)
[2017-10-24] MEDS: PANTOPRAZOLE 40 MG/10 ML VIAL IVP SCH (08:51)
[2017-10-24] MEDS: carBAMazepine 200 MG TAB PO SCH (08:52)
[2017-10-24] MEDS: LISINOPRIL 10 MG TAB PO SCH (08:52)
[2017-10-24] MEDS: busPIRone HCl 5 MG TAB PO SCH (08:52)
[2017-10-24] MEDS: ALPRAZolam 1 MG TAB PO SCH (08:58)
[2017-10-24] MEDS: cefTRIAXone IN SWFI 1,000 MG/10 ML SYRINGE IVP SCH (08:58)
[2017-10-24] MEDS: ONDANSETRON 4 MG/2 ML VIAL IVP PRN (09:11)
--- NOTE | 2017-10-24 11:47 | P.PN ---
Subjective Progress Note Date: 10/24/17 Principal diagnosis: Pancreatitis Feels better. Lipase within normal limits. Discharge anticipated today. Minimal abdominal pain. Objective - Vital Signs Vital signs: Vital Signs Temp 97.6 F 10/24/17 05:56 Pulse 74 10/24/17 05:56 Resp 18 10/24/17 05:56 BP 129/85 10/24/17 05:56 Pulse Ox 94 L 10/24/17 05:56 Intake & Output 10/23/17 10/24/17 10/24/17 18:59 06:59 18:59 Intake Total 2790 1860 Output Total 2700 Balance 2790 -840 Weight 66.224 kg Intake: Intake, IV Titration 1350 900 Amount 0.9% NaCl with KCl 40 Meq 1350 900 /l 1,000 ml @ 75 mls/hr IV .[id number] [facility] Rx#: [id number] Oral 1440 960 Output: Urine 2700 Other: Voiding Method Indwelling Catheter Indwelling Catheter Indwelling Catheter - Exam General appearance: The patient is alert, oriented, in no acute distress. HET: Head is normocephalic and atraumatic. Pupils are equal and reactive. Oropharynx is clear without lesions. Neck: Supple without lymphadenopathy. Trachea midline. Heart: S1 S2. Regular rate and rhythm. Lungs: No crackles or wheezes are heard. Abdomen: Soft, midepigastric tenderness, nondistended with bowel sounds. No peritoneal signs. No palpable organomegaly or masses. Extremities: Normal skin color and turgor. No cyanosis, rash, ulceration, clubbing, or edema. Radial and pedal pulses are 2/4 bilaterally. Storey clear rahul urine. Neurological: No focal deficits. Strength and sensation are grossly intact. - Labs CBC & Chem 7: 10/24/17 06:38 10/24/17 06:38 Labs: Abnormal Lab Results - Last 24 Hours (Table) 10/24/17 10/24/17 Range/Units 06:38 06:38 WBC 3.3 L (3.8-10.6) k/uL MCHC 30.9 L (31.0-37.0) g/dL RDW 17.6 H (11.5-15.5) % Sodium 131 L (137-145) mmol/L Potassium 5.3 H (3.5-5.1) mmol/L BUN 3 L (7-17) mg/dL Glucose 102 H (74-99) mg/dL Alkaline Phosphatase 145 H (38-126) U/L Total Protein 5.9 L (6.3-8.2) g/dL Microbiology - Last 24 Hours (Table) 10/20/17 09:31 Blood Culture - Preliminary Blood No Growth after 72 hours Assessment and Plan (1) Acute pancreatitis Narrative/Plan: 56-year-old female with a history of chronic indwelling Storey catheter and chronic UTIs admitted with acute UTI with elevated pancreatic enzymes consistent with acute pancreatitis. Etiology of pancreatitis unclear. History of dilated biliary tree with normal liver enzymes. Previous MRI pancreas imaging suggestive of possible CBD stricture disease. Other differentials to consider is medication related but felt to be less likely. Current Visit: Yes Status: Acute Code(s): K85.90 - ACUTE PANCREATITIS WITHOUT NECROSIS OR INFECTION, UNSP SNOMED Code(s): 894319883 (2) History of gastric bypass Current Visit: Yes Status: Acute Code(s): Z98.84 - BARIATRIC SURGERY STATUS SNOMED Code(s): 665896756 (3) UTI (urinary tract infection) Current Visit: Yes Status: Acute Code(s): N39.0 - URINARY TRACT INFECTION, SITE NOT SPECIFIED SNOMED Code(s): 21921946 Plan: 1. ERCP/EUS arranged through [facility] system; [facility] will notify patient in next 2-4 business days. 2. Low-fat diet. Supportive measures. DC per medicine and consultants. Assessment and plan a care discussed with Dr. Jackman
--- NOTE | 2017-10-24 15:31 | DS ---
DISCHARGE SUMMARY DATE OF SERVICE: 10/24/2017. FINAL DIAGNOSES: 1. Abdominal pain possible acute pancreatitis, improved. 2. Urinary tract infection. 4. Hyponatremia. 5. History of bariatric surgery. 6. Hypertension. 7. Gastroesophageal reflux disease. 8. Anxiety, bipolar. 9. History of remote nicotine dependence. 10.Chronic low back pain. 11.History of gastric bypass. DISCHARGE DISPOSITION: The patient is discharged in stable condition with guarded prognosis. HISTORY OF PRESENT ILLNESS: This 56-year-old woman with a past history of multiple medical problems was admitted with abdominal pain. The possibility of pancreatitis is considered. Patient treated symptomatically. Gastroenteritis saw the patient. The patient had complicated lesions and extrahepatic pancreatic duct stenosis also is a possibility. Dr. Jackman recommend outpatient endoscopic ultrasound, possibly at a tertiary care center. On exam, vitals are stable. Cardiovascular: S1, S2 Abdomen: Soft. Nervous System: No focal deficits. The patient improved significantly. Patient discharged in stable condition with guarded prognosis. DISCHARGE ADVICE: 1. Diet is soft, bland, low-fat. 2. Follow up with Dr. Bolanos in 2-3 days. 3. Follow with Gastroenterology as recommended. MEDICATIONS: 1. Ventolin HFA 2 puffs p.r.n. 2. Xanax 1 mg p.o. q.i.d. 3. buspar 5 mg p.o. b.i.d. 4. Tegretol 400 mg p.o. b.i.d. 5. Flexeril 10 mg daily. 6. Cymbalta 120 mg q.h.s. 7. [place] 10 mg t.i.d. p.r.n. 8. Zestril 10 mg p.o. daily. 9. Imitrex 100 mg p.o. daily p.r.n. 10.Desyrel 100 mg p.o. q.h.s. 11.Ambien 10 mg q.h.s. p.r.n. 12.Norvasc 10 mg p.o. q.h.s. Once again, the patient will be discharged in stable condition with guarded prognosis. MMODL / IJN: [id number] / MTDD
[2017-10-25] MEDS ORDERED: PANTOPRAZOLE 40 MG TABLET PO SCH (09:00)
== END 2017-10-24 13:11 | disposition home or self-care (01) | DRG 439 ==
LOC: EC 08:51 → 5MS5E 10:56 → OBSVTOIN 10-23 08:14
PROVIDERS: ADMIT Hospitalist; ATTEND Hospitalist
DX: K85.90 Acute pancreatitis without necrosis or infection, unspecified (principal); T83.511A Infection and inflammatory reaction due to indwelling urethral catheter, initial encounter; E87.1 Hypo-osmolality and hyponatremia; N39.0 Urinary tract infection, site not specified; K21.9 Gastro-esophageal reflux disease without esophagitis; I10 Essential (primary) hypertension; G89.4 Chronic pain syndrome; F31.9 Bipolar disorder, unspecified; F41.1 Generalized anxiety disorder; M54.5 Low back pain; Y73.2 Prosthetic and other implants, materials and accessory gastroenterology and urology devices associated with adverse incidents; Z79.899 Other long term (current) drug therapy; Z98.84 Bariatric surgery status; Z90.49 Acquired absence of other specified parts of digestive tract; Z87.891 Personal history of nicotine dependence; Z90.710 Acquired absence of both cervix and uterus; Z98.51 Tubal ligation status; Z87.440 Personal history of urinary (tract) infections; Z86.19 Personal history of other infectious and parasitic diseases
CPT/HCPCS: 36415; 51798; 74018; 74160; 80053; 80306; 81001; 82150; 83605; 83690; 83735; 84478; 84484; 85025; 86301; 87040; 87086; 93005; 93306; 96361; 96374; 96375; 96376; 99285

== ENCOUNTER 2019-02-02 11:11 | Inpatient (IN) | payer MEDICARE, OTHER ==
[2019-02-02] MEDS ORDERED: SODIUM CHLORIDE 0.9% 500 ML 500 ML IV STA (11:44)
--- NOTE | 2019-02-02 11:53 | ED ---
General Adult HPI - General Source: patient, EMS, RN notes reviewed Mode of arrival: EMS Limitations: no limitations <Abdulaziz Cook - Last Filed: 02/02/19 16:49> <Karol Purvis - Last Filed: 02/05/19 01:18> - General Chief complaint: Shortness of Breath Stated complaint: Anemia Time Seen by Provider: 02/02/19 11:18 - History of Present Illness Initial comments: This a 58-year-old female presents emergency department via EMS with chief complaint of weakness, shortness of breath. Patient states she has not felt well over the last couple weeks. Patient states that she had bladder surgery and urostomy formed. Patient states that she had a neurogenic bladder. Patient states she had stents removed weeks ago and states that she felt that symptoms worsen. She reports no fevers chills. She states she just feels very fatigued cannot ambulate without feeling short of breath. She denies any current chest p ain, headache or dizziness (Abdulaziz Cook) - Related Data Home Medications Medication Instructions Recorded Confirmed ALPRAZolam [Xanax] 1 mg PO QID 03/21/16 02/02/19 Albuterol Inhaler [Ventolin Hfa 2 puff INHALATION RT-Q4H PRN 03/21/16 02/02/19 Inhaler] DULoxetine HCL [Cymbalta] 120 mg PO DAILY 03/21/16 02/02/19 HYDROcodone/APAP 10-325MG [[place] 1 tab PO TID PRN 03/21/16 02/02/19 10-325] SUMAtriptan SUCCINATE [Imitrex] 100 mg PO DAILY PRN 03/21/16 02/02/19 carBAMazepine [TEGretol] 400 mg PO Q12H 03/21/16 02/02/19 Cyclobenzaprine [Flexeril] 10 mg PO DAILY PRN 12/18/16 02/02/19 traZODone HCL [Desyrel] 100 mg PO HS PRN 10/20/17 02/02/19 Cetirizine HCl 10 mg PO DAILY PRN 02/02/19 02/02/19 Dicyclomine [Bentyl] 20 mg PO QID 02/02/19 02/02/19 Lisinopril [Zestril] 40 mg PO HS 02/02/19 02/02/19 Metoprolol Tartrate 25 mg PO BID 02/02/19 02/02/19 Prochlorperazine [Compazine] 10 mg PO TID PRN 02/02/19 02/02/19 busPIRone HCL 15 mg PO TID 02/02/19 02/02/19 Previous Rx's Medication Instructions Recorded amLODIPine [Norvasc] 10 mg PO HS #30 tab 04/29/16 Allergies Allergy/AdvReac Type Severity Reaction Status Date / Time No Known Allergies Allergy Verified 02/02/19 17:39 Review of Systems ROS Other: All systems not noted in ROS Statement are negative. <Abdulaziz Cook - Last Filed: 02/02/19 16:49> ROS Other: All systems not noted in ROS Statement are negative. <Karol Purvis - Last Filed: 02/05/19 01:18> ROS Statement: Those systems with pertinent positive or pertinent negative responses have been documented in the HPI. Past Medical History Past Medical History: Blood Disorder, Hypertension Additional Past Medical History / Comment(s): past Obesity with previous bariatric surgery, fluctuating body weight, endometreosis,general anxiety disorder, bipolar disorder, hypertension, chronic back pain, history of iron deficiency,"low rbc's" history of anemia requiring blood transfusions, uti,falls and in may with fall had fx to lt hip but no sx, dizzy spells, chronic samuel cath- bladder only holds 100 ml's. pt stated it was changed today 10-20-17 History of Any Multi-Drug Resistant Organisms: None Reported Past Surgical History: Appendectomy, Bariatric Surgery, Bladder Surgery, Andry arean Section, Cholecystectomy, Hysterectomy, Tubal Ligation Additional Past Surgical History / Comment(s): bladder suspension, gastric bypass, colon volvulus had exporatory lap w/lysis of adhesions and rt colectomy Past Anesthesia/Blood Transfusion Reactions: No Reported Reaction Additional Past Anesthesia/Blood Transfusion Reaction / Comment(s): blood trandfusion- no reaction Past Psychological History: Anxiety, Bipolar, Depression Smoking Status: Former smoker Past Alcohol Use History: None Reported Past Drug Use History: None Reported - Past Family History Mother Family Medical History: No Reported History Additional Family Medical History / Comment(s): no history Father Family Medical History: No Reported History Additional Family Medical History / Comment(s): from alcoholism <Abdulaziz Cook - Last Filed: 02/02/19 16:49> General Exam Limitations: no limitations General appearance: alert, in no apparent distress Head exam: Present: atraumatic, normocephalic, normal inspection Eye exam: Present: normal appearance, PERRL, EOMI. Absent: scleral icterus, conjunctival injection, periorbital swelling Respiratory exam: Present: normal lung sounds bilaterally. Absent: respiratory distress, wheezes, rales, rhonchi, stridor Cardiovascular Exam: Present: normal rhythm, tachycardia, normal heart sounds. Absent: systolic murmur, diastolic murmur, rubs, gallop, clicks GI/Abdominal exam: Present: soft, normal bowel sounds, other (Urostomy noted, no erythema). Absent: distended, tenderness, guarding, rebound, rigid Back exam: Absent: CVA tenderness (R), CVA tenderness (L) Neurological exam: Present: alert Skin exam: Present: warm, dry, intact, normal color. Absent: rash <Abdulaziz Cook - Last Filed: 02/02/19 16:49> Course Vital Signs 02/02/19 02/02/19 02/02/19 11:27 11:39 12:59 Temperature 97.4 F L 97.0 F L Pulse Rate 105 H 114 H Respiratory 18 18 18 Rate Blood Pressure 118/88 119/89 O2 Sat by Pulse 99 98 Oximetry 02/02/19 02/02/19 02/02/19 13:00 14:12 16:27 Temperature 97.0 F L Pulse Rate 114 H 103 H 109 H Respiratory 18 18 18 Rate Blood Pressure 119/89 107/84 119/78 O2 Sat by Pulse 98 100 97 Oximetry 02/02/19 17:51 Temperature Pulse Rate 101 H Respiratory 18 Rate Blood Pressure 119/78 O2 Sat by Pulse 100 Oximetry Medical Decision Making - Lab Data Result diagrams: 02/02/19 13:15 02/02/19 13:15 <Abdulaziz Cook - Last Filed: 02/02/19 16:49> - Lab Data Result diagrams: 02/02/19 13:15 02/04/19 19:44 <Karol Purvis - Last Filed: 02/05/19 01:18> - Medical Decision Making Patient's found to have metabolic acidosis 9 and gap, this may related to her urostomy or other causes at this time. Patient states does have exertional dyspnea which is concerning. Patient will be admitted for further evaluation (Abdulaziz Cook) I was available for consultation in the emergency department. The history and physical exam were done by the midlevel provider. I was consulted for this patients care. I reviewed the case with the midlevel provider and based on their presentation of the patient, I agree with the assessment, medical decision making and plan of care as documented. I evaluated the patient myself. I discussed the case with Dr. Zhang who accepted admission of the patient. He requested that nephrology be placed on consult. Chart was dictated using [employer] dictation software. Attempts were made to correct any dictation errors however some typographical errors may persist. (Karol Purvis) - Lab Data Lab Results 02/02/19 02/02/19 02/02/19 Range/Units 13:15 13:15 13:15 WBC 8.3 (3.8-10.6) k/uL RBC 4.62 (3.80-5.40) m/uL Hgb 13.1 (11.4-16.0) gm/dL Hct 41.6 (34.0-46.0) % MCV 90.1 (80.0-100.0) fL MCH 28.3 (25.0-35.0) pg MCHC 31.4 (31.0-37.0) g/dL RDW 16.3 H (11.5-15.5) % Plt Count 656 H (150-450) k/uL Neutrophils % (Manual) 69 % Lymphocytes % (Manual) 23 % Monocytes % (Manual) 7 % Eosinophils % (Manual) 1 % Neutrophils # (Manual) 5.73 (1.3-7.7) k/uL Lymphocytes # (Manual) 1.91 (1.0-4.8) k/uL Monocytes # (Manual) 0.58 (0-1.0) k/uL Eosinophils # (Manual) 0.08 (0-0.7) k/uL Nucleated RBCs 0 (0-0) /100 WBC Manual Slide Review Performed Hypochromasia Marked Anisocytosis Slight PT 9.7 (9.0-12.0) sec INR 0.9 (<1.2) APTT 24.1 (22.0-30.0) sec D-Dimer 0.67 H (<0.60) mg/L FEU Sodium 135 L (137-145) mmol/L Potassium 4.5 (3.5-5.1) mmol/L Chloride 113 H (98-107) mmol/L Carbon Dioxide 8 L* (22-30) mmol/L Anion Gap 14 mmol/L BUN 22 H (7-17) mg/dL Creatinine 1.08 H (0.52-1.04) mg/dL Est GFR (CKD-EPI)AfAm 65 (>60 ml/min/1.73 sqM) Est GFR (CKD-EPI)NonAf 56 (>60 ml/min/1.73 sqM) Glucose 109 H (74-99) mg/dL Plasma Lactic Acid Jaswinder (0.7-2.0) mmol/L Calcium 10.4 H (8.4-10.2) mg/dL Magnesium 1.9 (1.6-2.3) mg/dL Total Bilirubin 0.3 (0.2-1.3) mg/dL AST 17 (14-36) U/L ALT 23 (9-52) U/L Alkaline Phosphatase 145 H (38-126) U/L Troponin I (0.000-0.034) ng/mL NT-Pro-B Natriuret Pep pg/mL Total Protein 8.1 (6.3-8.2) g/dL Albumin 4.5 (3.5-5.0) g/dL Urine Color Urine Appearance (Clear) Urine pH (5.0-8.0) Ur Specific [place] (1.001-1.035) Urine Protein (Negative) Urine Glucose (UA) (Negative) Urine Ketones (Negative) Urine Blood (Negative) Urine Nitrite (Negative) Urine Bilirubin (Negative) Urine Urobilinogen (<2.0) mg/dL Ur Leukocyte Esterase (Negative) Urine WBC (0-5) /hpf Ur Squamous Epith Cells (0-4) /hpf Amorphous Sediment (None) /hpf Urine Bacteria (None) /hpf Hyaline Casts (0-2) /lpf Urine Mucus (None) /hpf 02/02/19 02/02/19 02/02/19 Range/Units 13:15 13:15 13:15 WBC (3.8-10.6) k/uL RBC (3.80-5.40) m/uL Hgb (11.4-16.0) gm/dL Hct (34.0-46.0) % MCV (80.0-100.0) fL MCH (25.0-35.0) pg MCHC (31.0-37.0) g/dL RDW (11.5-15.5) % Plt Count (150-450) k/uL Neutrophils % (Manual) % Lymphocytes % (Manual) % Monocytes % (Manual) % Eosinophils % (Manual) % Neutrophils # (Manual) (1.3-7.7) k/uL Lymphocytes # (Manual) (1.0-4.8) k/uL Monocytes # (Manual) (0-1.0) k/uL Eosinophils # (Manual) (0-0.7) k/uL Nucleated RBCs (0-0) /100 WBC Manual Slide Review Hypochromasia Anisocytosis PT (9.0-12.0) sec INR (<1.2) APTT (22.0-30.0) sec D-Dimer (<0.60) mg/L FEU Sodium (137-145) mmol/L Potassium (3.5-5.1) mmol/L Chloride (98-107) mmol/L Carbon Dioxide (22-30) mmol/L Anion Gap mmol/L BUN (7-17) mg/dL Creatinine (0.52-1.04) mg/dL Est GFR (CKD-EPI)AfAm (>60 ml/min/1.73 sqM) Est GFR (CKD-EPI)NonAf (>60 ml/min/1.73 sqM) Glucose (74-99) mg/dL Plasma Lactic Acid Jaswinder 1.1 (0.7-2.0) mmol/L Calcium (8.4-10.2) mg/dL Magnesium (1.6-2.3) mg/dL Total Bilirubin (0.2-1.3) mg/dL AST (14-36) U/L ALT (9-52) U/L Alkaline Phosphatase (38-126) U/L Troponin I <0.012 (0.000-0.034) ng/mL NT-Pro-B Natriuret Pep 42 pg/mL Total Protein (6.3-8.2) g/dL Albumin (3.5-5.0) g/dL Urine Color Urine Appearance (Clear) Urine pH (5.0-8.0) Ur Specific [place] (1.001-1.035) Urine Protein (Negative) Urine Glucose (UA) (Negative) Urine Ketones (Negative) Urine Blood (Negative) Urine Nitrite (Negative) Urine Bilirubin (Negative) Urine Urobilinogen (<2.0) mg/dL Ur Leukocyte Esterase (Negative) Urine WBC (0-5) /hpf Ur Squamous Epith Cells (0-4) /hpf Amorphous Sediment (None) /hpf Urine Bacteria (None) /hpf Hyaline Casts (0-2) /lpf Urine Mucus (None) /hpf 02/02/19 02/03/19 02/03/19 Range/Units 14:09 09:49 18:05 WBC (3.8-10.6) k/uL RBC (3.80-5.40) m/uL Hgb (11.4-16.0) gm/dL Hct (34.0-46.0) % MCV (80.0-100.0) fL MCH (25.0-35.0) pg MCHC (31.0-37.0) g/dL RDW (11.5-15.5) % Plt Count (150-450) k/uL Neutrophils % (Manual) % Lymphocytes % (Manual) % Monocytes % (Manual) % Eosinophils % (Manual) % Neutrophils # (Manual) (1.3-7.7) k/uL Lymphocytes # (Manual) (1.0-4.8) k/uL Monocytes # (Manual) (0-1.0) k/uL Eosinophils # (Manual) (0-0.7) k/uL Nucleated RBCs (0-0) /100 WBC Manual Slide Review Hypochromasia Anisocytosis PT (9.0-12.0) sec INR (<1.2) APTT (22.0-30.0) sec D-Dimer (<0.60) mg/L FEU Sodium 134 L (137-145) mmol/L Potassium 3.7 (3.5-5.1) mmol/L Chloride 112 H (98-107) mmol/L Carbon Dioxide 14 L (22-30) mmol/L Anion Gap 8 mmol/L BUN 20 H (7-17) mg/dL Creatinine 0.95 (0.52-1.04) mg/dL Est GFR (CKD-EPI)AfAm 76 (>60 ml/min/1.73 sqM) Est GFR (CKD-EPI)NonAf 66 (>60 ml/min/1.73 sqM) Glucose 111 H (74-99) mg/dL Plasma Lactic Acid [place] (0.7-2.0) mmol/L Calcium 9.3 (8.4-10.2) mg/dL Magnesium (1.6-2.3) mg/dL Total Bilirubin (0.2-1.3) mg/dL AST (14-36) U/L ALT (9-52) U/L Alkaline Phosphatase (38-126) U/L Troponin I (0.000-0.034) ng/mL NT-Pro-B Natriuret Pep pg/mL Total Protein (6.3-8.2) g/dL Albumin (3.5-5.0) g/dL Urine Color Yellow Yellow Urine Appearance Cloudy H Clear (Clear) Urine pH 7.0 7.0 (5.0-8.0) Ur Specific [place] 1.011 1.014 (1.001-1.035) Urine Protein 1+ H 1+ H (Negative) Urine Glucose (UA) Negative Negative (Negative) Urine Ketones Negative Negative (Negative) Urine Blood Trace H Negative (Negative) Urine Nitrite Negative Negative (Negative) Urine Bilirubin Negative Negative (Negative) Urine Urobilinogen 2.0 <2.0 (<2.0) mg/dL Ur Leukocyte Esterase Large H Moderate H (Negative) Urine WBC 7 H 5 (0-5) /hpf Ur Squamous Epith Cells <1 <1 (0-4) /hpf Amorphous Sediment Occasional H Few H (None) /hpf Urine Bacteria Many H (None) /hpf Hyaline Casts 5 H (0-2) /lpf Urine Mucus Rare H (None) /hpf Disposition <Abdulaziz Cook - Last Filed: 02/02/19 16:49> <Karol Purvis - Last Filed: 02/05/19 01:18> Clinical Impression: Metabolic acidosis, normal anion gap (NAG), Exertional dyspnea Disposition: ADMITTED IP TO THIS [facility] Condition: Fair
--- NOTE | 2019-02-02 12:34 | XR ---
EXAMINATION TYPE: XR chest 2V DATE OF EXAM: 02/02/2019 COMPARISON: 12/18/2016 HISTORY: Shortness of breath for 2 weeks TECHNIQUE: Frontal and lateral views of the chest are obtained. FINDINGS: Pulmonary hyperinflation suggests underlying COPD. There is no focal air space opacity, pl eural effusion, or pneumothorax seen. The cardiac silhouette size is within normal limits. The oss eous structures are intact. Thoracic nerve root stimulator is seen, new from the prior. Cholecystecto my clips are present. Diffuse osseous demineralization is present. Thoracic kyphosis is noted with mi ld degenerative changes of the thoracic spine. IMPRESSION: No acute cardiopulmonary process. Findings suggest underlying COPD.
[2019-02-02 13:50] LABS: INR 0.9 (<1.2); Partial Thromboplastin Time 24.1 sec (22.0-30.0); Prothrombin Time 9.7 sec (9.0-12.0)
[2019-02-02 13:52] LABS: Albumin 4.5 g/dL (3.5-5.0); Calcium 10.4 mg/dL (8.4-10.2); Magnesium 1.9 mg/dL (1.6-2.3); Potassium 4.5 mmol/L (3.5-5.1); Total Bilirubin 0.3 mg/dL (0.2-1.3); Total Protein 8.1 g/dL (6.3-8.2)
[2019-02-02 14:00] LABS: D-Dimer 0.67 mg/L FEU (<0.60)
[2019-02-02 14:20] LABS: Anisocytosis Slight; HCT 41.6 % (34.0-46.0); HGB 13.1 gm/dL (11.4-16.0); Hypochromasia Marked; MCH 28.3 pg (25.0-35.0); MCHC 31.4 g/dL (31.0-37.0); MCV 90.1 fL (80.0-100.0); Mean Platelet Volume 5.5; Platelet Count 656 k/uL (150-450); RBC 4.62 m/uL (3.80-5.40); RDW 16.3 % (11.5-15.5); WBC 8.3 k/uL (3.8-10.6)
[2019-02-02 14:39] LABS: Amorphous Sediment,Urine Occasional /hpf; Appearance,Urine Cloudy (Clear); Bacteria,Urine Many /hpf; Bilirubin,Urine Negative (Negative); Blood,Urine Trace (Negative); Color,Urine Yellow; Glucose,Urine (UA) Negative (Negative); Hyaline Casts,Urine 5 /lpf (0-2); Ketones,Urine Negative (Negative); Leukocyte Esterase,Urine Large (Negative); Mucus,Urine Rare /hpf; Nitrite,Urine Negative (Negative); Protein,Urine 1+ (Negative); Specific Gravity,Urine 1.011 (1.001-1.035); Squamous Epithelial Cell,Urine <1 /hpf (0-4)
[2019-02-02 14:49] LABS: Eosinophils # (M) 0.08 k/uL (0-0.7); Lymphocytes # (M) 1.91 k/uL (1.0-4.8); Monocytes # (M) 0.58 k/uL (0-1.0); Neutrophils % (M) 69 %; Nucleated Red Blood Cells 0 /100 WBC (0-0); Total Cells Counted 100
--- NOTE | 2019-02-02 15:16 | CT ---
EXAMINATION TYPE: CT abdomen pelvis w con DATE OF EXAM: 02/02/2019 HISTORY: pain recent bladder surgery. Abdominal pain. CT DLP: 410.5mGycm Automated Exposure Control for Dose Reduction was Utilized. CONTRAST: CT scan of the abdomen and pelvis is performed with IV Contrast, patient injected with 800 mL of Isov ue 370. COMPARISON: CT dated 10/22/2017 FINDINGS: LUNG BASES: Visualized portions of the chest are discussed on the CT chest dictation of the same date . LIVER/GB: There is similar appearance of intrahepatic and extra hepatic biliary ductal dilatation in comparison to the exam of 10/22/2017. This is preferential within the left hepatic lobe. Gallbladder s urgically absent. Again choledochal cyst is possible as etiology. Main pancreatic duct is upper limit s of normal but has not increased in size from the prior exam. The liver is enlarged in craniocaudal dimension measuring 20.0 cm. PANCREAS: Pancreatic duct is upper limits of normal. Pancreas enhances homogeneously. SPLEEN: No splenomegaly. ADRENALS: No nodularity or thickening. KIDNEYS: Urinary bladder is surgically absent. Ileal conduit has been performed. There is a duplex co llecting system on the right with atrophic lower pole moiety, stable from the prior of 10/22/2017. Luke ateral mild hydronephrosis is new, right greater than left. Kidneys are overall enhance symmetrically with delayed excretion BOWEL: Postsurgical changes are seen of the bowel with multiple small bowel anastomotic sites to form ileal conduit. Small bowel displays air-fluid levels without dilation suggesting ileus. LYMPH NODES: No greater than 1cm abdominal or pelvic lymph nodes are appreciated. OSSEOUS STRUCTURES: No significant abnormality is seen. OTHER: Bilateral breast implants are partially visualized. Spinal nerve root stimulator is also parti ally visualized IMPRESSION: 1. Small bowel air-fluid levels and postoperative changes, likely postoperative ileus. No dilated bow el to suggest obstruction. 2. New hydronephrosis, right greater than left, but overall mild bilaterally.
--- NOTE | 2019-02-02 15:27 | CT ---
EXAMINATION TYPE: CT chest angio for PE DATE OF EXAM: 02/02/2019 COMPARISON: NONE HISTORY: pain recent bladder surgery CT DLP: 237 mGycm. Automated Exposure Control for Dose Reduction was Utilized. CONTRAST: CTA scan of the thorax is performed with IV Contrast, patient injected with 80 mL of Isovue 370, pulm onary embolism protocol. MIP Images are created on CT scanner and reviewed. FINDINGS: LUNGS: The lungs are grossly clear, there is no concerning parenchymal mass or nodule identified. T here is no pleural effusion or pneumothorax seen. The tracheobronchial tree is patent. Calcified pul monary nodule in the right middle lobe measures 8 mm and represents a benign granuloma. MEDIASTINUM: There is satisfactory enhancement of the pulmonary artery and its branches, there is no CT evidence for pulmonary embolism. There are no greater than 1 cm hilar or mediastinal lymph nodes. No cardiomegaly or pericardial effusion is seen. No significant coronary calcifications are seen g iven the limitation of the angiographic phase of enhancement. OTHER: Posterior diaphragmatic rent and herniation of mesenteric fat is seen on sagittal image 123 an d axial image 121 on the left. Postsurgical changes of the stomach. Bilateral breast implants are par tially visualized. IMPRESSION: 1. No evidence of pulmonary embolus. 2. No acute pulmonary pathology is seen.
[2019-02-02] MEDS ORDERED: ACETAMINOPHEN TAB 325 MG TAB PO PRN (16:52)
[2019-02-02] MEDS ORDERED: NALOXONE 0.4 MG/ML 1 ML VIAL IV PRN (16:52)
[2019-02-02] MEDS ORDERED: HYDROcodone/APAP 10-325MG 1 EACH TAB PO ONE (16:55)
[2019-02-02] MEDS ORDERED: SODIUM CHLORIDE 0.9% 1,000 ML IV SCH (17:00)
[2019-02-02] MEDS: ALPRAZolam 1 MG TAB PO SCH ×2 (19:32→21:04)
[2019-02-02] MEDS ORDERED: ALBUTEROL NEBULIZED 2.5 MG/3 ML INHALATION PRN (20:15)
[2019-02-02] MEDS ORDERED: CYCLOBENZAPRINE 10 MG TAB PO PRN (20:15)
[2019-02-02] MEDS ORDERED: LORATADINE 10 MG TAB PO PRN (20:15)
[2019-02-02] MEDS ORDERED: traZODone HCL 100 MG TAB PO PRN (20:15)
[2019-02-02] MEDS ORDERED: PROCHLORPERAZINE 10 MG TAB PO PRN (20:15)
[2019-02-02] MEDS ORDERED: busPIRone HCl 5 MG TAB PO SCH (21:00)
[2019-02-02] MEDS ORDERED: LISINOPRIL 20 MG TAB PO SCH (21:00)
[2019-02-02] MEDS ORDERED: amLODIPine 10 MG TAB PO SCH (21:00)
[2019-02-02] MEDS: METOPROLOL TARTRATE 25 MG TAB PO SCH (21:03)
[2019-02-02] MEDS: carBAMazepine 200 MG TAB PO SCH (21:04)
[2019-02-02] MEDS: busPIRone HCl 5 MG TAB PO SCH (21:04)
[2019-02-02] MEDS: DICYCLOMINE 20 MG TAB PO SCH (21:07)
[2019-02-02] MEDS: SUMAtriptan SUCCINATE 50 MG TAB PO PRN (21:58)
[2019-02-03] MEDS: DEXTROSE 5% IN WATER 1,000 ML with SODIUM BICARB (1 MEQ/ML) 150 ML IV SCH ×3 (00:03→20:26)
[2019-02-03] MEDS: HYDROcodone/APAP 10-325MG 1 EACH TAB PO PRN ×2 (03:35→10:57)
[2019-02-03] MEDS ORDERED: LISINOPRIL 10 MG TAB PO SCH (09:00)
[2019-02-03] MEDS ORDERED: INFLUENZA VACCINE (6 MOS+) 60 MCG/0.5 ML SYRINGE IM ONE (09:00)
[2019-02-03 10:16] LABS: Calcium 9.3 mg/dL (8.4-10.2); Potassium 3.7 mmol/L (3.5-5.1)
[2019-02-03] MEDS: METOPROLOL TARTRATE 25 MG TAB PO SCH ×2 (10:25→20:39)
[2019-02-03] MEDS: DULoxetine HCL 60 MG CAPSULE.DR PO SCH (10:32)
[2019-02-03] MEDS: ALPRAZolam 1 MG TAB PO SCH ×2 (10:33→12:47)
[2019-02-03] MEDS: busPIRone HCl 5 MG TAB PO SCH ×3 (10:33→21:51)
[2019-02-03] MEDS: DICYCLOMINE 20 MG TAB PO SCH ×4 (10:33→21:51)
[2019-02-03] MEDS: carBAMazepine 200 MG TAB PO SCH ×2 (10:33→20:40)
--- NOTE | 2019-02-03 14:35 | CONS ---
CONSULTATION REASON FOR CONSULT: Renal failure, metabolic acidosis. HISTORY OF PRESENT ILLNESS: Patient is a 58-year-old female who recently had bladder surgery with creation of urostomy. This was done about 2 weeks ago. Details are not available. Patient states that since surgery she has been feeling sick. She has not been eating much. She was increasingly weak and came into the hospital. There is no prior history of kidney diseases. Serum creatinine was 1.0 mg/dL. CO2 was only 8. Patient has had output from her urostomy. She was started on bicarb drip yesterday. CO2 is up to 14 today, serum creatinine 0.95. No history of use of metformin prior to admission. PAST MEDICAL HISTORY: Significant for obesity with previous history of bariatric surgery, endometriosis, bipolar disorder, hypertension, chronic back pain. History of multiple UTIs. Previous chronic Storey catheter placement with the history of neurogenic bladder. PAST SURGICAL HISTORY: Appendectomy, bariatric surgery, multiple bladder surgeries, , cholecystectomy, hysterectomy, tubal ligation, gastric bypass surgery for colon volvulus and explorative lap with lysis of adhesions and right colectomy. SOCIAL HISTORY: Patient is a former smoker. No history of drug abuse or alcohol abuse. MEDICATIONS: At home prior to admission included Norvasc, Zestril, BuSpar, Flexeril, Ambien, Desyrel, Xanax, Cymbalta, Imitrex, Tegretol. ALLERGIES: None. PHYSICAL EXAMINATION: Patient is comfortable, awake. She is not in any acute distress. She is, however, not feeling well. Blood pressure this morning was 85/60, heart rate 101 per minute, she is afebrile Examination of the heart S1, S2. Examination of the lungs, bilateral breath sounds are heard. Abdomen is soft, non-tender. Examination of lower extremities shows no evidence of edema. CREDENTIALING ANALYST exam grossly intact, urostomy is intact. LABS: Reveal sodium 134, potassium 3.7, chloride 112, CO2 is 14, BUN 20, creatinine 0.95. UA shows 1+ protein, large leukocyte esterase, WBC 7, hyaline cast 5. ASSESSMENT: 1. Acute kidney injury, prerenal currently improved. 2. Severe metabolic acidosis and anion non gap associated with gastrointestinal fluid loss with formation of ileal loop urostomy. Currently maintained on IV bicarb and improving. 3. Mild hypercalcemia. Initially, currently improved, mainly associated with volume depletion. 4. Status post recent bladder surgery, details not available with creation of a urostomy. 5. History of right colectomy for a volvulus. 6. History of repeated urinary tract infections. 7. Pyuria rule out urinary tract infection. PLAN: Continue IV bicarb. Increase bicarb drip to 100 mL an hour. Blood pressure is not elevated. Continue off the TAYLOR inhibitors. If blood pressure remains low, we can also hold the Lopressor. I will discontinue the Norvasc as well for now. \Follow up on urine cultures and repeat labs in a.m. Thank you for this consultation. Will continue to follow the patient with you during her hospitalization. MMODL / IJN: [id number] /
--- NOTE | 2019-02-03 16:50 | P.HPIM ---
History of Present Illness H&P Date: 02/03/19 Chief Complaint: Weak and tired History of presenting complaint: This is a 58-year-old patient of Dr. Bolanos. Chronic stable medical conditions include hypertension, obesity with previous pediatric surgery, anxiety disorder, bipolar disorder, hypertension, chronic back pain,. Patient had repeated blood infection with UTI and a chronic Samuel catheter for 2 years. Because of that patient underwent partial bladder resection on January 08 undergo [facility]. urostomy was created. Subsequently bilateral kidney stents were removed. The urostomy bag has been working fine. But patient since then has noted that she been having increasing pain which she describes in the kidneys. Decreased oral intake. Having chills. Becoming tired rundown and lethargic. She lives in [facility] and because [place] is a long drive reluctant for the same she decided to come in to the ER here. Patient is found to be severely acidotic with a bicarb of 8. IV fluids and bicarbonate was started. Patient denies any fever but has had chills. Oral intake has not been good. Review of systems: GEN.: Weak tired chills EYES: None HEENT: None NECK: None RESPIRATORY: None CARDIOVASCULAR: None GASTROINTESTINAL: None GENITOURINARY: As above MUSCULOSKELETAL: Some joint complaints LYMPHATICS: None HEMATOLOGICAL: None PSYCHIATRY: Anxious NEUROLOGICAL: None Social history: Patient otherwise lives alone some to has a daughter at home. May use a cane. Patient smoked for close to 20 years and stopped in 1998. After 2 packs a day. No alcohol. Family history: Reviewed, noncontributory to presentation Physical examination: VITAL SIGNS: 97.4, 105, 18, 11 8/88, 99% on 2 L GENERAL: BMI 25.6, sitting up in bed rather tired lethargic but arousable able to talk. EYES: Pupils equal. Conjunctiva normal. HEENT: External appearance of nose and ears normal, oral cavity grossly normal. NECK: JVD not raised; masses not palpable. HEART: First and second heart sounds are normal; no edema. LUNGS: Respiratory rate normal; clear to auscultation. ABDOMEN: Soft, nontender, liver spleen not palpable, no masses palpable, midline scar is present, urostomy bag with urine in place. PSYCH: Patient able to answer questions, lethargic but able to answer questionsl. NEUROLOGICAL: Cranial nerves grossly intact; no facial asymmetry, power and sensation grossly intact. LYMPHATICS: No lymph nodes palpable in the axilla and neck INVESTIGATIONS, reviewed in the clinical context: White count 8.3 hemoglobin 13.1 platelets 656 potassium 4.5. Bicarb 8 BUN 22 creatinine 1.08 UA positive for leukoesterase, 7 wbc, bacteria Assessment: -This is a patient with rather extensive medical history with recurrent UTIs and cystitis. Patient had what appears to be a partial bladder surgery with the creation of urostomy. Patient also had stents removed from both the kidneys. Patient is having increasing pain including chills poor oral intake. Concern for underlying infection -Acute metabolic encephalopathy, could be from infection, also note that patient is rather hefty dose of Xanax -Acute UTI with infection of the urinary tract -Acute metabolic acidosis with hyperchloremia -Clinical dehydration -Essential hypertension -Bipolar disorder Plan: -Patient started on IV fluids. Bicarb supplementation. Home medications resumed. We'll cut back on the dose of Xanax 0.5 mg 3 times a day as patient rather lethargic. Nephrology was consulted. Home medications resumed. Patient started and IV ceftriaxone. Urine and blood cultures will be done. Care was discussed with the patient. Lovenox for DVT prophylaxis. Past Medical History Past Medical History: Blood Disorder, Hypertension Additional Past Medical History / Comment(s): past Obesity with previous bariatric surgery, fluctuating body weight, endometreosis,general anxiety disorder, bipolar disorder, hypertension, chronic back pain, history of iron deficiency,"low rbc's" history of anemia requiring blood transfusions, uti,falls and in may with fall had fx to lt hip but no sx, dizzy spells, chronic samuel cath- bladder only holds 100 ml's. pt stated it was changed today 10-20-17 History of Any Multi-Drug Resistant Organisms: None Reported Past Surgical History: Appendectomy, Bariatric Surgery, Bladder Surgery, Section, Cholecystectomy, Hysterectomy, Tubal Ligation Additional Past Surgical History / Comment(s): bladder suspension, gastric bypass, colon volvulus had exporatory lap w/lysis of adhesions and rt colectomy Past Anesthesia/Blood Transfusion Reactions: No Reported Reaction Additional Past Anesthesia/Blood Transfusion Reaction / Comment(s): blood trandfusion- no reaction Past Psychological History: Anxiety, Bipolar, Depression Additional Psychological History / Comment(s): pt lives alone in [address] [facility] home but she stays on first floor. uses cane or walker-has dizzy spells at times and hx of falls. idc Smoking Status: Former smoker Past Alcohol Use History: None Reported Additional Past Alcohol Use History / Comment(s): started smoking at age 16(1976) smoked 2 ppd, quit 1998 Past Drug Use History: None Reported - Past Family History Mother Family Medical History: No Reported History Additional Family Medical History / Comment(s): no history Father Family Medical History: No Reported History Additional Family Medical History / Comment(s): from alcoholism Medications and Allergies Home Medications Medication Instructions Recorded Confirmed Type ALPRAZolam [Xanax] 1 mg PO QID 03/21/16 02/02/19 History Albuterol Inhaler [Ventolin Hfa 2 puff INHALATION RT-Q4H PRN 03/21/16 02/02/19 History Inhaler] DULoxetine HCL [Cymbalta] 120 mg PO DAILY 03/21/16 02/02/19 History HYDROcodone/APAP 10-325MG [Lerona 1 tab PO TID PRN 03/21/16 02/02/19 History 10-325] SUMAtriptan SUCCINATE [Imitrex] 100 mg PO DAILY PRN 03/21/16 02/02/19 History carBAMazepine [TEGretol] 400 mg PO Q12H 03/21/16 02/02/19 History amLODIPine [Norvasc] 10 mg PO HS #30 tab 04/29/16 02/02/19 Rx Cyclobenzaprine [Flexeril] 10 mg PO DAILY PRN 12/18/16 02/02/19 History traZODone HCL [Desyrel] 100 mg PO HS PRN 10/20/17 02/02/19 History Cetirizine HCl 10 mg PO DAILY PRN 02/02/19 02/02/19 History Dicyclomine [Bentyl] 20 mg PO QID 02/02/19 02/02/19 History Lisinopril [Zestril] 40 mg PO HS 02/02/19 02/02/19 History Metoprolol Tartrate 25 mg PO BID 02/02/19 02/02/19 History Prochlorperazine [Compazine] 10 mg PO TID PRN 02/02/19 02/02/19 History busPIRone HCL 15 mg PO TID 02/02/19 02/02/19 History Allergies Allergy/AdvReac Type Severity Reaction Status Date / Time No Known Allergies Allergy Verified 02/02/19 17:39 Physical Exam Vitals: Vital Signs Temp Pulse Pulse Resp BP BP Pulse Ox 02/03/19 07:35 97.6 F 101 H 18 85/60 99 02/03/19 04:00 97.4 F L 100 18 113/80 99 02/03/19 00:00 97.6 F 79 18 113/79 100 02/02/19 19:00 98.5 F 113 H 18 137/83 100 02/02/19 17:51 101 H 18 119/78 100 02/02/19 16:27 109 H 18 119/78 97 02/02/19 14:12 103 H 18 107/84 100 02/02/19 13:00 97.0 F L 114 H 18 119/89 98 02/02/19 12:59 97.0 F L 114 H 18 119/89 98 02/02/19 11:39 18 02/02/19 11:27 97.4 F L 105 H 18 118/88 99 Intake and Output 02/02/19 02/03/19 02/03/19 22:59 06:59 14:59 Intake Total 160 540 Output Total 750 Balance -590 540 Intake: Intake, IV Titration 160 Amount Dextrose 5% in Water 1, 160 000 ml @ 80 mls/hr IV . [id number] HARRIET with Sodium Bicarb (1 Meq/ml) 150 ml Rx#:[id number] Oral 240 Other 300 Output: Urine 750 Other: Voiding Method Ileal Conduit (Right) Ileal Conduit (Right) Results CBC & Chem 7: 02/02/19 13:15 02/03/19 09:49 Labs: Abnormal Lab Results - Last 24 Hours (Table) 02/02/19 02/02/19 02/02/19 Range/Units 13:15 13:15 13:15 RDW 16.3 H (11.5-15.5) % Plt Count 656 H (150-450) k/uL D-Dimer 0.67 H (<0.60) mg/L FEU Sodium 135 L (137-145) mmol/L Chloride 113 H (98-107) mmol/L Carbon Dioxide 8 L* (22-30) mmol/L BUN 22 H (7-17) mg/dL Creatinine 1.08 H (0.52-1.04) mg/dL Glucose 109 H (74-99) mg/dL Calcium 10.4 H (8.4-10.2) mg/dL Alkaline Phosphatase 145 H (38-126) U/L Urine Appearance (Clear) Urine Protein (Negative) Urine Blood (Negative) Ur Leukocyte Esterase (Negative) Urine WBC (0-5) /hpf Amorphous Sediment (None) /hpf Urine Bacteria (None) /hpf Hyaline Casts (0-2) /lpf Urine Mucus (None) /hpf 02/02/19 02/03/19 Range/Units 14:09 09:49 RDW (11.5-15.5) % Plt Count (150-450) k/uL D-Dimer (<0.60) mg/L FEU Sodium 134 L (137-145) mmol/L Chloride 112 H (98-107) mmol/L Carbon Dioxide 14 L (22-30) mmol/L BUN 20 H (7-17) mg/dL Creatinine (0.52-1.04) mg/dL Glucose 111 H (74-99) mg/dL Calcium (8.4-10.2) mg/dL Alkaline Phosphatase (38-126) U/L Urine Appearance Cloudy H (Clear) Urine Protein 1+ H (Negative) Urine Blood Trace H (Negative) Ur Leukocyte Esterase Large H (Negative) Urine WBC 7 H (0-5) /hpf Amorphous Sediment Occasional H (None) /hpf Urine Bacteria Many H (None) /hpf Hyaline Casts 5 H (0-2) /lpf Urine Mucus Rare H (None) /hpf Thrombosis Risk Factor Assmnt - Choose All That Apply Each Factor Represents 1 point: Age 41-60 years, Obesity (BMI >25) Thrombosis Risk Factor Assessment Total Risk Factor Score: 2 Thrombosis Risk Factor Assessment Level: Low Risk
[2019-02-03] MEDS: ENOXAPARIN 40 MG/0.4 ML SYRINGE SQ SCH (17:06)
[2019-02-03] MEDS: ALPRAZolam 0.5 MG TAB PO SCH ×2 (18:19→21:54)
[2019-02-03] MEDS: ONDANSETRON 4 MG/2 ML VIAL IVP PRN (18:19)
[2019-02-03 18:54] LABS: Amorphous Sediment,Urine Few /hpf; Appearance,Urine Clear (Clear); Bilirubin,Urine Negative (Negative); Blood,Urine Negative (Negative); Color,Urine Yellow; Glucose,Urine (UA) Negative (Negative); Ketones,Urine Negative (Negative); Leukocyte Esterase,Urine Moderate (Negative); Nitrite,Urine Negative (Negative); Protein,Urine 1+ (Negative); Specific Gravity,Urine 1.014 (1.001-1.035); Squamous Epithelial Cell,Urine <1 /hpf (0-4); Urobilinogen,Urine <2.0 mg/dL (<2.0)
[2019-02-03] MEDS: LACTATED RINGERS 250 ML IV SCH ×4 (20:26→22:47)
[2019-02-04] MEDS: LACTATED RINGERS 250 ML IV SCH ×4 (02:38→19:47)
[2019-02-04] MEDS ORDERED: DEXTROSE 5% IN WATER 1,000 ML with SODIUM BICARB (1 MEQ/ML) 150 ML IV SCH (05:15)
[2019-02-04] MEDS: METOPROLOL TARTRATE 25 MG TAB PO SCH ×2 (07:51→20:16)
[2019-02-04] MEDS: busPIRone HCl 5 MG TAB PO SCH ×3 (07:59→20:15)
[2019-02-04] MEDS: ONDANSETRON 4 MG/2 ML VIAL IVP PRN (07:59)
[2019-02-04] MEDS: ENOXAPARIN 40 MG/0.4 ML SYRINGE SQ SCH (08:00)
[2019-02-04] MEDS: carBAMazepine 200 MG TAB PO SCH ×2 (08:00→20:16)
[2019-02-04] MEDS: ALPRAZolam 0.5 MG TAB PO SCH ×4 (08:00→20:17)
[2019-02-04] MEDS: DULoxetine HCL 60 MG CAPSULE.DR PO SCH (08:00)
[2019-02-04] MEDS: DICYCLOMINE 20 MG TAB PO SCH ×4 (08:00→20:16)
[2019-02-04 09:43] LABS: Calcium 8.5 mg/dL (8.4-10.2); Magnesium 1.6 mg/dL (1.6-2.3); Potassium 3.1 mmol/L (3.5-5.1)
[2019-02-04] MEDS: POTASSIUM CHLORIDE ER 20 MEQ TAB.ER PO SCH ×2 (10:03→10:58)
[2019-02-04] MEDS: SODIUM CHLORIDE 0.9% 1,000 ML IV SCH (10:04)
--- NOTE | 2019-02-04 10:13 | P.PN ---
Subjective Patient is seen in follow-up for acute kidney injury. GFR is back to baseline. Denies chest pain. Does get dyspneic with exertion. Continues to have good output from urostomy. Oral intake is gradually improving. Vital signs are stable. General: The patient appeared well nourished and normally developed. HEENT: Head exam is unremarkable. Neck is without jugular venous distension. LUNGS: Lungs are clear to auscultation and percussion. Breath sounds decreased. HEART: Rate and Rhythm are regular. First and second heart sounds normal. No mu rmurs, rubs or gallops. ABDOMEN: Abdominal exam reveals normal bowel sounds. Non-tender and non-dis tended. No evidence of peritonitis. EXTREMITITES: No clubbing, cyanosis, or edema. Objective - Vital Signs Vital signs: Vital Signs Temp 97.7 F 02/04/19 07:15 Pulse 87 02/04/19 07:15 Resp 18 02/04/19 07:15 BP 99/60 02/04/19 08:07 Pulse Ox 100 02/04/19 07:15 Intake & Output 02/03/19 02/04/19 02/04/19 18:59 06:59 18:59 Intake Total 540 600 240 Output Total 900 Balance 540 -300 240 Intake: Oral 240 600 240 Other 300 Output: Urine 900 Other: Voiding Method Ileal Conduit (Right) Ileal Conduit (Right) Ileal Conduit (Right) # Voids 2 - Labs CBC & Chem 7: 02/02/19 13:15 02/04/19 09:15 Labs: Abnormal Lab Results - Last 24 Hours (Table) 02/03/19 02/03/19 02/04/19 Range/Units 09:49 18:05 09:15 Sodium 134 L 133 L (137-145) mmol/L Potassium 3.1 L (3.5-5.1) mmol/L Chloride 112 H (98-107) mmol/L Carbon Dioxide 14 L 21 L (22-30) mmol/L BUN 20 H 19 H (7-17) mg/dL Glucose 111 H 120 H (74-99) mg/dL Urine Protein 1+ H (Negative) Ur Leukocyte Esterase Moderate H (Negative) Amorphous Sediment Few H (None) /hpf Microbiology - Last 24 Hours (Table) 02/03/19 18:15 Urine Culture - Preliminary Urine,Clean Catch 02/02/19 16:02 Blood Culture - Preliminary Blood No Growth after 24 hours Assessment and Plan Plan: Assessment: 1. Mild acute kidney injury mostly prerenal improving with IV hydration. GFR back to baseline. 2. Metabolic acidosis, non-gap, secondary to GI losses. Improving with bicarb drip. 3. Hypokalemia secondary to intracellular shifting from IV bicarb. 4. Mild hypomagnesemia from GI losses. 5. Recent bladder surgery with creation of urostomy. 6. Hypercalcemia secondary to volume contraction. Resolved. Plan: Discontinue bicarbonate drip. Start normal saline at 70 mL an hour. Add oral sodium bicarbonate. Replace potassium. Replace magnesium. Encourage oral intake. Repeat electrolytes in the morning.
[2019-02-04] MEDS: MAGNESIUM SULFATE-D5W PMX 1 GM in DEXTROSE/WATER 1 100ML.BAG IVPB SCH ×2 (10:16→12:04)
[2019-02-04] MEDS: SODIUM BICARBONATE TAB 650 MG TAB PO SCH ×2 (10:58→20:16)
[2019-02-04] MEDS: HYDROcodone/APAP 10-325MG 1 EACH TAB PO PRN ×2 (12:18→20:16)
[2019-02-04 20:24] LABS: Magnesium 2.2 mg/dL (1.6-2.3); Potassium 3.7 mmol/L (3.5-5.1)
--- NOTE | 2019-02-04 21:44 | P.PN ---
Progress Note - Text Progress Note Date: 02/04/19 Chief Complaint: Weak and tired History of presenting complaint: This is a 58-year-old patient of Dr. Bolanos. Chronic stable medical conditions include hypertension, obesity with previous pediatric surgery, anxiety disorder, bipolar disorder, hypertension, chronic back pain,. Patient had repeated blood infection with UTI and a chronic Storey catheter for 2 years. Because of that patient underwent partial bladder resection on January 08 undergo [facility]. urostomy was created. Subsequently bilateral kidney stents were removed. The urostomy bag has been working fine. But patient since then has noted that she been having increasing pain which she describes in the kidneys. Decreased oral intake. Having chills. Becoming tired rundown and lethargic. She lives in [facility] and because [place] is a long drive reluctant for the same she decided to come in to the ER here. Patient is found to be severely acidotic with a bicarb of 8. IV fluids and bicarbonate was started. Patient denies any fever but has had chills. Oral intake has not been good. Admitted with-severe acidosis, acute UTI, metabolic encephalopathy, dehydration. Does of Xanax was cut back to half. Today-patient is more awake today. Still tired. Reluctant to be out of bed. Did eat some food.. Getting IV fluids. Review of systems: Was done for constitutional, cardiovascular, GI, pulmonary. relevant finding as above Active Medications Acetaminophen (Tylenol Tab) 650 mg PO Q6HR PRN PRN Reason: Mild Pain or Fever > 100.5 Last Admin: 02/03/19 16:55 Dose: 650 mg Documented by: Hydrocodone Bitart/Acetaminophen ([place] 10) 1 each PO TID PRN PRN Reason: Pain Last Admin: 02/04/19 20:16 Dose: 1 each Documented by: Albuterol Sulfate (Ventolin Nebulized) 2.5 mg INHALATION RT-Q4H PRN PRN Reason: Shortness Of Breath Alprazolam (Xanax) 0.5 mg PO QID [facility] Stop: 02/05/19 06:00 Last Admin: 02/04/19 20:17 Dose: 0.5 mg Documented by: Buspirone HCl (Buspar) 15 mg PO TID [facility] Last Admin: 02/04/19 20:15 Dose: 15 mg Documented by: Carbamazepine (Tegretol) 400 mg PO Q12H [facility] Last Admin: 02/04/19 20:16 Dose: 400 mg Documented by: Cyclobenzaprine HCl (Flexeril) 10 mg PO DAILY PRN PRN Reason: Muscle Spasm Dicyclomine HCl (Bentyl) 10 mg PO TID [facility] Duloxetine HCl (Cymbalta) 120 mg PO DAILY [facility] Last Admin: 02/04/19 08:00 Dose: 120 mg Documented by: Enoxaparin Sodium (Lovenox) 40 mg SQ DAILY [facility] Last Admin: 02/04/19 08:00 Dose: 40 mg Documented by: Ceftriaxone Sodium 1 gm/ (Sodium Chloride) 50 mls @ 100 mls/hr IVPB Q24HR [facility] Last Admin: 02/04/19 08:39 Dose: 100 mls/hr Documented by: Sodium Chloride (Saline 0.9%) 1,000 mls @ 70 mls/hr IV .[id number] [facility] Last Admin: 02/04/19 10:04 Dose: 70 mls/hr Documented by: Loratadine (Claritin) 10 mg PO DAILY PRN PRN Reason: Allergy Symptoms Metoprolol Tartrate (Lopressor) 25 mg PO BID [facility] Last Admin: 02/04/19 20:16 Dose: 25 mg Documented by: Naloxone HCl (Narcan) 0.2 mg IV Q2M PRN PRN Reason: Opioid Reversal Ondansetron HCl (Zofran) 4 mg IVP Q8HR PRN PRN Reason: Nausea And Vomiting Last Admin: 02/04/19 07:59 Dose: 4 mg Documented by: Prochlorperazine Maleate (Compazine) 10 mg PO TID PRN PRN Reason: Nausea Sodium Bicarbonate (Sodium Bicarbonate Tab) 650 mg PO BID [facility] Last Admin: 02/04/19 20:16 Dose: 650 mg Documented by: Sumatriptan Succinate (Imitrex) 100 mg PO DAILY PRN PRN Reason: Migraine Headache Last Admin: 02/02/19 21:58 Dose: 100 mg Documented by: Trazodone HCl (Desyrel) 100 mg PO HS PRN PRN Reason: Insomnia Physical examination: VITAL SIGNS: 97.7, 87, 18, 99/68, her percent room air GENERAL: Sitting up in bed, tired but a bit more awake. EYES: Pupils equal. Conjunctiva normal. HEENT: External appearance of nose and ears normal, oral cavity grossly normal. NECK: JVD not raised; masses not palpable. HEART: First and second heart sounds are normal; no edema. LUNGS: Respiratory rate normal; clear to auscultation. ABDOMEN: Soft, nontender, liver spleen not palpable, no masses palpable, midline scar is present, urostomy bag with urine in place. PSYCH: Answering questions. INVESTIGATIONS, reviewed in the clinical context: Potassium 3.1 creatinine 0.9 urine culture gram-negative bacilli, bicarb 21 Previous testing White count 8.3 hemoglobin 13.1 platelets 656 potassium 4.5. Bicarb 8 BUN 22 creatinine 1.08 UA positive for leukoesterase, 7 wbc, bacteria Assessment: -Acute metabolic encephalopathy, could be from infection, also note that patient is rather hefty dose of Xanax -Acute UTI with infection of the urinary tract -Acute metabolic acidosis with hyperchloremia, bicarb coming up -Clinical dehydration -Essential hypertension -Bipolar disorder -Symptomatic hypotension from fluid loss -Hypokalemia improving Plan: Xanax will be discontinued later tonight. That'll can also make sedated. We'll cut the dose to half. Patient continues on IV ceftriaxone. Other medications to continue. Being followed by nephrology.
[2019-02-04] MEDS: DICYCLOMINE 10 MG CAP PO SCH (21:51)
[2019-02-05] MEDS: ONDANSETRON 4 MG/2 ML VIAL IVP PRN ×2 (03:32→08:53)
[2019-02-05] MEDS: SODIUM CHLORIDE 0.9% 1,000 ML IV SCH ×2 (03:56→15:54)
[2019-02-05 05:59] LABS: Calcium 8.5 mg/dL (8.4-10.2); Magnesium 2.2 mg/dL (1.6-2.3); Potassium 3.8 mmol/L (3.5-5.1)
[2019-02-05] MEDS: ENOXAPARIN 40 MG/0.4 ML SYRINGE SQ SCH (08:41)
[2019-02-05] MEDS: METOPROLOL TARTRATE 25 MG TAB PO SCH ×2 (08:42→21:21)
[2019-02-05] MEDS: DULoxetine HCL 60 MG CAPSULE.DR PO SCH (08:42)
[2019-02-05] MEDS: DICYCLOMINE 10 MG CAP PO SCH ×2 (08:42→16:31)
[2019-02-05] MEDS: busPIRone HCl 5 MG TAB PO SCH ×3 (08:42→21:21)
[2019-02-05] MEDS: SODIUM BICARBONATE TAB 650 MG TAB PO SCH ×2 (08:44→21:21)
[2019-02-05] MEDS: carBAMazepine 200 MG TAB PO SCH ×2 (08:44→21:21)
[2019-02-05] MEDS: HYDROcodone/APAP 10-325MG 1 EACH TAB PO PRN ×2 (08:44→16:18)
--- NOTE | 2019-02-05 16:11 | P.PN ---
Progress Note - Text Progress Note Date: 02/05/19 Chief Complaint: Weak and tired History of presenting complaint: This is a 58-year-old patient of Dr. Bolanos. Chronic stable medical conditions include hypertension, obesity with previous pediatric surgery, anxiety disorder, bipolar disorder, hypertension, chronic back pain,. Patient had repeated blood infection with UTI and a chronic Storey catheter for 2 years. Because of that patient underwent partial bladder resection on January 08 undergo [facility]. urostomy was created. Subsequently bilateral kidney stents were removed. The urostomy bag has been working fine. But patient since then has noted that she been having increasing pain which she describes in the kidneys. Decreased oral intake. Having chills. Becoming tired rundown and lethargic. She lives in [facility] and because [place] is a long drive reluctant for the same she decided to come in to the ER here. Patient is found to be severely acidotic with a bicarb of 8. IV fluids and bicarbonate was started. Patient denies any fever but has had chills. Oral intake has not been good. Admitted with-severe acidosis, acute UTI, metabolic encephalopathy, dehydration. Dose of Bentyl was cut back. Has that can cause sedation lethargic. Xanax was discontinued that reason 2. Zestril was discontinued because of low blood pressure. Today-Remains tired. more awake. Xanax was discontinued). Dose of Bentyl was cut back. Oral intake has been variable. Review of systems: Was done for constitutional, cardiovascular, GI, pulmonary. relevant finding as above Active Medications Acetaminophen (Tylenol Tab) 650 mg PO Q6HR PRN PRN Reason: Mild Pain or Fever > 100.5 Last Admin: 02/03/19 16:55 Dose: 650 mg Documented by: Hydrocodone Bitart/Acetaminophen ([place] 10) 1 each PO TID PRN PRN Reason: Pain Last Admin: 02/05/19 08:44 Dose: 1 each Documented by: Albuterol Sulfate (Ventolin Nebulized) 2.5 mg INHALATION RT-Q4H PRN PRN Reason: Shortness Of Breath Buspirone HCl (Buspar) 15 mg PO TID [facility] Last Admin: 02/05/19 08:42 Dose: 15 mg Documented by: Carbamazepine (Tegretol) 400 mg PO Q12H [facility] Last Admin: 02/05/19 08:44 Dose: 400 mg Documented by: Cyclobenzaprine HCl (Flexeril) 10 mg PO DAILY PRN PRN Reason: Muscle Spasm Last Admin: 02/05/19 12:26 Dose: 10 mg Documented by: Dicyclomine HCl (Bentyl) 10 mg PO TID [facility] Last Admin: 02/05/19 08:42 Dose: 10 mg Documented by: Duloxetine HCl (Cymbalta) 120 mg PO DAILY [facility] Last Admin: 02/05/19 08:42 Dose: 120 mg Documented by: Enoxaparin Sodium (Lovenox) 40 mg SQ DAILY [facility] Last Admin: 02/05/19 08:41 Dose: 40 mg Documented by: Ceftriaxone Sodium 1 gm/ (Sodium Chloride) 50 mls @ 100 mls/hr IVPB Q24HR [facility] Last Admin: 02/05/19 08:53 Dose: 100 mls/hr Documented by: Sodium Chloride (Saline 0.9%) 1,000 mls @ 70 mls/hr IV .[id number] [facility] Last Admin: 02/05/19 15:54 Dose: Not Given Documented by: Loratadine (Claritin) 10 mg PO DAILY PRN PRN Reason: Allergy Symptoms Metoprolol Tartrate (Lopressor) 25 mg PO BID [facility] Last Admin: 02/05/19 08:42 Dose: 25 mg Documented by: Naloxone HCl (Narcan) 0.2 mg IV Q2M PRN PRN Reason: Opioid Reversal Ondansetron HCl (Zofran) 4 mg IVP Q8HR PRN PRN Reason: Nausea And Vomiting Last Admin: 02/05/19 08:53 Dose: 4 mg Documented by: Prochlorperazine Maleate (Compazine) 10 mg PO TID PRN PRN Reason: Nausea Sodium Bicarbonate (Sodium Bicarbonate Tab) 650 mg PO BID [facility] Last Admin: 02/05/19 08:44 Dose: 650 mg Documented by: Sumatriptan Succinate (Imitrex) 100 mg PO DAILY PRN PRN Reason: Migraine Headache Last Admin: 02/02/19 21:58 Dose: 100 mg Documented by: Trazodone HCl (Desyrel) 100 mg PO HS PRN PRN Reason: Insomnia Physical examination: VITAL SIGNS: 97.8, 85, 16, 11 8/78, 98% room air GENERAL: Sitting up in bed, tired, but more awake. EYES: Pupils equal. Conjunctiva normal. HEENT: External appearance of nose and ears normal, oral cavity grossly normal. NECK: JVD not raised; masses not palpable. HEART: First and second heart sounds are normal; no edema. LUNGS: Respiratory rate normal; clear to auscultation. ABDOMEN: Soft, nontender, liver spleen not palpable, no masses palpable, midline scar is present, urostomy bag with urine in place. PSYCH: AAO 3 INVESTIGATIONS, reviewed in the clinical context: Potassium 3.8 creatinine 0.83 Urine culture gram-negative bacilli Previous testing White count 8.3 hemoglobin 13.1 platelets 656 potassium 4.5. Bicarb 8 BUN 22 creatinine 1.08 UA positive for leukoesterase, 7 wbc, bacteria Assessment: -Acute metabolic encephalopathy, could be from infection, also note that patient is rather hefty dose of Xanax. Dose of Bentyl was cut back and also Xanax was discontinued. -Acute UTI with infection of the urinary tract, but gram-negative bacilli -Acute metabolic acidosis with hyperchloremia, bicarb coming up -Clinical dehydration -Essential hypertension -Bipolar disorder -Symptomatic hypotension from fluid loss -Hypokalemia improving -Recent urostomy creation with removal of stents from both the kidneys recently Plan: We'll stop the Bentyl also completely. Continue with IV fluids. Patient encouraged to be out of bed. Follow with nephrology. Awaiting urine culture. We'll consult psychiatrist to see if some of the psych meds can be scaled back.
[2019-02-06] MEDS: HYDROcodone/APAP 10-325MG 1 EACH TAB PO PRN ×3 (00:30→15:37)
[2019-02-06] MEDS: ONDANSETRON 4 MG/2 ML VIAL IVP PRN (05:09)
[2019-02-06] MEDS: SODIUM CHLORIDE 0.9% 1,000 ML IV SCH (05:53)
[2019-02-06 07:32] VITALS: RESP 19
[2019-02-06] MEDS: ENOXAPARIN 40 MG/0.4 ML SYRINGE SQ SCH (08:25)
[2019-02-06] MEDS: SODIUM BICARBONATE TAB 650 MG TAB PO SCH (08:25)
[2019-02-06] MEDS: carBAMazepine 200 MG TAB PO SCH (08:25)
[2019-02-06] MEDS: DULoxetine HCL 60 MG CAPSULE.DR PO SCH (08:26)
[2019-02-06] MEDS: busPIRone HCl 5 MG TAB PO SCH ×2 (08:26→16:47)
[2019-02-06] MEDS: METOPROLOL TARTRATE 25 MG TAB PO SCH (08:26)
[2019-02-06] MEDS: SUMAtriptan SUCCINATE 50 MG TAB PO PRN (10:10)
--- NOTE | 2019-02-06 13:06 | P.DS ---
Providers Date of admission: 02/04/19 09:11 Attending physician: Maurilio Zhang Consults: 02/02/19 16:53 Consult Physician Urgent Consulting Provider: Reta Landers Consult Reason/Comments: Metabolic acidosis non-anion gap Do you want consulting provider notified?: Yes 02/05/19 16:09 Consult Physician Routine Consulting Provider: Juan Cooper Consult Reason/Comments: eval psy meds-lethargic Do you want consulting provider notified?: Yes Primary care physician: [facility] Course: 4-year-old female was admitted with altered mental status probably secondary to toxic encephalopathy from medications rather than urinary Tract infection. Patient has Klebsiella in the urine which is pansensitive and this is secondary to asymptomatic bacteriuria patient already received antibiotics and completed therapy with 3 more days of antibiotics. Patient is on multiple medications that can cause confusion and altered mental status including trazodone which was cut down into half and patient is on high-dose of Xanax which is being discontinued at this time. Patient blood pressure is low amlodipine was discontinued. Bentyl was discontinued as well. PHYSICAL EXAMINATION: GENERAL: The patient is alert and oriented x3, not in any acute distress. Well developed, well nourished. HEENT: Pupils are round and equally reacting to light. EOMI. No scleral icterus. No conjunctival pallor. Normocephalic, atraumatic. No pharyngeal erythema. No thyromegaly. CARDIOVASCULAR: S1 and S2 present. No murmurs, rubs, or gallops. PULMONARY: Chest is clear to auscultation, no wheezing or crackles. ABDOMEN: Soft, nontender, nondistended, normoactive bowel sounds. No palpable organomegaly. MUSCULOSKELETAL: No joint swelling or deformity. EXTREMITIES: No cyanosis, clubbing, or pedal edema. NEUROLOGICAL: Gross neurological examination did not reveal any focal deficits. SKIN: No rashes. -acute toxic encephalopathy from medications. -Possibly of urinary tract infection cannot be ruled out completely but most probably has asymptomatic bacteriuria -essential hypertension -bipolar disorder for other medical problems and hospice physician course please refer to dictation from Dr. Zhang from yesterday Patient Condition at Discharge: Fair Plan - Discharge Summary New Discharge Prescriptions: New Cefuroxime Axetil [Ceftin] 500 mg PO BID 3 Days #6 tab Continue carBAMazepine [TEGretol] 400 mg PO Q12H SUMAtriptan SUCCINATE [Imitrex] 100 mg PO DAILY PRN PRN Reason: Migraine Headache Albuterol Inhaler [Ventolin Hfa Inhaler] 2 puff INHALATION RT-Q4H PRN PRN Reason: Shortness Of Breath HYDROcodone/APAP 10-325MG [[place] 10-325] 1 tab PO TID PRN PRN Reason: Pain DULoxetine HCL [Cymbalta] 120 mg PO DAILY Cyclobenzaprine [Flexeril] 10 mg PO DAILY PRN PRN Reason: Muscle Spasm busPIRone HCL 15 mg PO TID Lisinopril [Zestril] 40 mg PO HS Metoprolol Tartrate 25 mg PO BID Cetirizine HCl 10 mg PO DAILY PRN PRN Reason: Allergy Symptoms Discontinued ALPRAZolam [Xanax] 1 mg PO QID amLODIPine [Norvasc] 10 mg PO HS #30 tab traZODone HCL [Desyrel] 100 mg PO HS PRN PRN Reason: Insomnia Dicyclomine [Bentyl] 20 mg PO QID Prochlorperazine [Compazine] 10 mg PO TID PRN PRN Reason: Nausea Discharge Medication List Albuterol Inhaler [Ventolin Hfa Inhaler] 2 puff INHALATION RT-Q4H PRN 03/21/16 [History] DULoxetine HCL [Cymbalta] 120 mg PO DAILY 03/21/16 [History] HYDROcodone/APAP 10-325MG [[place] 10-325] 1 tab PO TID PRN 03/21/16 [History] SUMAtriptan SUCCINATE [Imitrex] 100 mg PO DAILY PRN 03/21/16 [History] carBAMazepine [TEGretol] 400 mg PO Q12H 03/21/16 [History] Cyclobenzaprine [Flexeril] 10 mg PO DAILY PRN 12/18/16 [History] Cetirizine HCl 10 mg PO DAILY PRN 02/02/19 [History] Lisinopril [Zestril] 40 mg PO HS 02/02/19 [History] Metoprolol Tartrate 25 mg PO BID 02/02/19 [History] busPIRone HCL 15 mg PO TID 02/02/19 [History] Cefuroxime Axetil [Ceftin] 500 mg PO BID 3 Days #6 tab 02/06/19 [Rx] Follow up Appointment(s)/Referral(s): Brenden Bolanos MD [Primary Care Provider] - 3 Days (office closed at time of discharge. Please call to make appointment.) Discharge Disposition: HOME SELF-CARE
[2019-02-06 15:09] VITALS: BP 132/88; PULSE 82; TEMP 97.9
--- NOTE | 2019-02-06 16:01 | PN ---
PROGRESS NOTE Patient is seen for followup for acute kidney injury, severe metabolic acidosis. Renal function is improved. Acidosis is improved as well. The patient is off of the IV bicarb. She is maintained on oral bicarb. Serum creatinine is down to 0.8 from 1.0 on initial admission. The patient feels well. She has good output from the urostomy. She is being discharged today. PHYSICAL EXAMINATION: Blood pressure this morning was 163/95, heart rate 63 per minute, she is afebrile. Examination of the heart S1, S2. Examination of lungs, decreased breath sounds at the bases. Abdomen is soft, nontender. CRISIS INTERVENTION SPECIALIST exam grossly intact. LABS: Show sodium 135, potassium 3.8, chloride 109, BUN 15, creatinine 0.83. UA unremarkable with 1+ protein noted. ASSESSMENT: 1. Acute kidney injury, prerenal, currently resolved. 2. Severe metabolic acidosis secondary to GI fluid loss through the ileal loop urostomy, currently improved post bicarb drip. Continue with oral sodium bicarb for now. 3. Urinary tract infection with urine culture growing Klebsiella oxytoca, maintained on antibiotics. PLAN: Continue oral sodium bicarb. Okay for discharge. Follow up as outpatient in about 2 weeks time. MMODL / IJN: [id number] /
--- NOTE | 2019-02-06 19:38 | CONS ---
CONSULTATION DATE OF SERVICE: 02/06/2019 IDENTIFYING DATA: This patient is a 58-year-old female who was admitted to the medical floor for acute mental status changes. We are asked to consult regarding the same. HISTORY OF PRESENT ILLNESS: The patient has been seen by internal medicine and worked up. They have already written the order for her to be discharged once psychiatrically clear. The assumption is that the patient experienced a delirium secondary to polypharmacy. She had undergone a bladder procedure recently and was placed on [place] and Flexeril. This was in the context of her already taking Xanax 1 mg 4 times daily. During this hospitalization, the Xanax was discontinued. She was continued on her other psychotropic medications including BuSpar, Cymbalta, trazodone, and Tegretol. The patient states that her mood is fine. She does feel a little anxious. She reports no symptoms of depression. She does not feel sad. She endorses no tearfulness or crying spells. She reports no hopeless thinking. She denies having any suicidal ideation, intent, or plan. She is endorsing no auditory or visual hallucinations or any specific delusions. She does report a history of manic episodes where she will have decreased need for sleep, increased energy, racing thoughts, increased goal-directed activity, etc. She feels that these symptoms have been sufficiently managed with the Tegretol. She reports having no access to firearms at home. PAST PSYCHIATRIC HISTORY: She has had approximately 2 prior inpatient psychiatric hospitalizations. The last one was 10 years ago. She currently works with a Dr. Douglas via [employer] through [facility]. She works with a therapist at [facility] in [place]. No history of suicide attempts. She is currently prescribed BuSpar 15 mg 3 times daily, Cymbalta 120 mg daily, trazodone 100 mg at bedtime but she states that is unnecessary, Tegretol 400 mg twice daily. She was on Xanax 1 mg 4 times daily, but that was discontinued during this hospitalization. PAST MEDICAL HISTORY: She presented with metabolic acidosis, hypertension, chronic back pain, suspected urinary tract infection. CHEMICAL DEPENDENCY HISTORY: She reports no use of alcohol, marijuana, or illicit drugs. She has never been placed in residential treatment for chemical dependency reasons. FAMILY PSYCHIATRIC HISTORY: Several family members known to have depression and anxiety. No suicides in the family. FAMILY CHEMICAL DEPENDENCY HISTORY: Her father was known to have an alcohol use disorder. SOCIAL HISTORY: The patient is 58 years old. She is . She has 3 children. She currently resides with her son. She is unemployed and is on disability for her psychiatric illness. She went as far as high school. LEGAL HISTORY: Unknown. ABUSE HISTORY: None reported. MENTAL STATUS EXAM: The patient is a female appearing her stated age. She is seated upright in bed. She is dressed in hospital attire. Eye contact is appropriate. She is alert throughout our interaction. Speech is fluent, spontaneous, nonpressured. She answers questions appropriately. She reports her mood is mildly anxious. She denies having any suicidal ideation, intent, or plan. She is reporting no homicidal ideation, intent, or plan. She does not feel hopeless. She is endorsing no auditory visual hallucinations or any specific delusions. There is no observed evidence of psychosis. She demonstrates no tangential thinking, loose associations or flight of ideas. She does not appear hypomanic or manic at this time. Insight and judgment have improved. In reviewing the records, she is oriented to person, place, and date. She demonstrates no verbal or physical aggressiveness. She demonstrates future oriented thinking. IMPRESSIONS: Bipolar 1 disorder, most recent depressed; anxiety, unspecified. PLAN: The patient will continue on her BuSpar 15 mg 3 times daily, Cymbalta 120 mg daily. She states she does not really need the trazodone. I would recommend discontinuing it in that case. She will continue on Tegretol 400 mg twice daily. It was noted that her sodium level has been mildly low. This could be affect from the Tegretol which could be looked into further. No Tegretol level was drawn. I agree with discontinuing the Xanax. We discussed the dangers of using a benzodiazepine with opiate analgesics. Additionally, the dose seemed to be high given her age and the chronic use. She is encouraged to speak with her outpatient psychiatrist to discuss this further. She may benefit from changing the Cymbalta as she is unsure if it is still providing benefit and more help is needed and prevent anxiety symptoms. She will continue working with her individual therapist. At this time, there is no imminent safety risk. She does not require inpatient psychiatric hospitalization. She is instructed to return to the hospital with any acute safety concerns. MMODL / IJN: [id number] /
== END 2019-02-06 17:20 | disposition home health service (06) | DRG 682 ==
LOC: EC 11:11 → 1SOBS 16:56 → OBSVTOIN 02-04 09:11 → 4SSUR 02-05 09:49
PROVIDERS: ADMIT Hospitalist; ATTEND Hospitalist
DX: N17.9 Acute kidney failure, unspecified (principal); G92 Toxic encephalopathy; E87.2 Acidosis; I95.9 Hypotension, unspecified; E87.8 Other disorders of electrolyte and fluid balance, not elsewhere classified; E83.42 Hypomagnesemia; E83.52 Hypercalcemia; N31.9 Neuromuscular dysfunction of bladder, unspecified; R82.71 Bacteriuria; E86.0 Dehydration; Z23 Encounter for immunization; T50.905A Adverse effect of unspecified drugs, medicaments and biological substances, initial encounter; Z43.6 Encounter for attention to other artificial openings of urinary tract; D50.9 Iron deficiency anemia, unspecified; E87.6 Hypokalemia; I10 Essential (primary) hypertension; F31.9 Bipolar disorder, unspecified; F41.1 Generalized anxiety disorder; G89.29 Other chronic pain; M54.9 Dorsalgia, unspecified; Z79.899 Other long term (current) drug therapy; Z87.440 Personal history of urinary (tract) infections; Z98.84 Bariatric surgery status; Z91.81 History of falling; Z90.710 Acquired absence of both cervix and uterus; Z90.49 Acquired absence of other specified parts of digestive tract; Z90.6 Acquired absence of other parts of urinary tract; Z98.51 Tubal ligation status; Z87.891 Personal history of nicotine dependence; Z81.1 Family history of alcohol abuse and dependence; Z87.81 Personal history of (healed) traumatic fracture
CPT/HCPCS: 36415; 71046; 71275; 74177; 80048; 80053; 81001; 83605; 83735; 83880; 84132; 84484; 85025; 85379; 85610; 85730; 87040; 87077; 87086; 87186; 90686; 93005; 96360; 96361; 99285

== ENCOUNTER 2019-04-20 10:18 | Inpatient (IN) | payer MEDICARE ==
[2019-04-20] MEDS ORDERED: SODIUM CHLORIDE 0.9% 1,000 ML IV STA (10:41)
[2019-04-20] MEDS ORDERED: ONDANSETRON 4 MG/2 ML VIAL IVP STA (10:41)
[2019-04-20] MEDS ORDERED: MORPHINE SULFATE 4 MG/ML SYRINGE IV STA (10:41)
--- NOTE | 2019-04-20 10:42 | ED ---
Abdominal Pain HPI <Rivera Kinney - Last Filed: 04/20/19 13:18> - General Source: patient, EMS Mode of arrival: EMS Limitations: no limitations <Lee Mustafa - Last Filed: 04/20/19 20:58> - General Chief Complaint: Abdominal Pain Stated Complaint: abdominal pain Time Seen by Provider: 04/20/19 10:33 - History of Present Illness Initial Comments: Patient is 58-year-old female presenting to the emergency department with a chief complaint of possible kidney infection. Patient reports she had an uroostomy placed in December due to recurrent UTIs from self cathing after many years. Patient states she had 3 kidney infections ever since December. Patient reports is currently feels like that as well. Patient reports nausea with multiple episodes of nonbilious, nonbloody vomiting. Patient reports over the last day she has dry heaves because she cannot keep anything down. Patient does report chills but denies any fevers. Patient states the urine is drastically darker. Patient also reports diffuse abdominal tenderness and bilateral flank pain. Patient states she went to her primary care and was started on Bactrim. Patient denies any improvement in symptoms. (Lee Mustafa) - Related Data Home Medications Medication Instructions Recorded Confirmed Albuterol Inhaler [Ventolin Hfa 2 puff INHALATION RT-Q4H PRN 03/21/16 04/20/19 Inhaler] DULoxetine HCL [Cymbalta] 120 mg PO DAILY 03/21/16 04/20/19 HYDROcodone/APAP 10-325MG [[place] 1 tab PO TID PRN 03/21/16 04/20/19 10-325] SUMAtriptan SUCCINATE [Imitrex] 100 mg PO DAILY PRN 03/21/16 04/20/19 carBAMazepine [TEGretol] 400 mg PO Q12H 03/21/16 04/20/19 Lisinopril [Zestril] 40 mg PO HS 02/02/19 04/20/19 Metoprolol Tartrate 25 mg PO BID 02/02/19 04/20/19 busPIRone HCL 15 mg PO TID 02/02/19 04/20/19 ALPRAZolam [Xanax] 1 mg PO QID PRN 04/20/19 04/20/19 Cetirizine HCl [Zyrtec] 10 mg PO DAILY 04/20/19 04/20/19 Clobetasol Propionate [Temovate 1 applic TOPICAL DAILY PRN 04/20/19 04/20/19 0.05% Cream] Dicyclomine HCl 20 mg PO TID PRN 04/20/19 04/20/19 Diphenoxylate HCl/Atropine 1 tab PO QID PRN 04/20/19 04/20/19 [Lomotil 2.5-0.025 mg Tablet] Fluticasone Nasal [place] [Flonase 1 spray EA NOSTRIL DAILY 04/20/19 04/20/19 Nasal [place]] Promethazine HCl 25 mg PO Q12H 04/20/19 04/20/19 Sulfamethox-Tmp 800-160Mg [Bactrim 1 tab PO Q12HR 04/20/19 04/20/19 DS 800-160 mg] Tiotropium [place] [Spiriva] 1 cap INHALATION RT-DAILY 04/20/19 04/20/19 Topiramate [Topamax] 100 mg PO QID 04/20/19 04/20/19 Allergies Allergy/AdvReac Type Severity Reaction Status Date / Time No Known Allergies Allergy Verified 04/20/19 14:40 Review of Systems ROS Other: All systems not noted in ROS Statement are negative. <Rivera Kinney - Last Filed: 04/20/19 13:18> ROS Other: All systems not noted in ROS Statement are negative. <Lee Mustafa - Last Filed: 04/20/19 20:58> ROS Statement: Those systems with pertinent positive or pertinent negative responses have been documented in the HPI. Past Medical History Past Medical History: Blood Disorder, Hypertension Additional Past Medical History / Comment(s): past Obesity with previous bariatric surgery, fluctuating body weight, endometreosis,general anxiety disorder, bipolar disorder, hypertension, chronic back pain, history of iron deficiency,"low rbc's" history of anemia requiring blood transfusions, uti,falls and in may with fall had fx to lt hip but no sx, dizzy spells, chronic samuel cath- bladder only holds 100 ml's. pt stated it was changed today 10-20-17 History of Any Multi-Drug Resistant Organisms: None Reported Past Surgical History: Appendectomy, Bariatric Surgery, Bladder Surgery, Section, Cholecystectomy, Hysterectomy, Tubal Ligation Additional Past Surgical History / Comment(s): bladder suspension, gastric bypass, colon volvulus had exporatory lap w/lysis of adhesions and rt colectomy Past Anesthesia/Blood Transfusion Reactions: No Reported Reaction Additional Past Anesthesia/Blood Transfusion Reaction / Comment(s): blood trandfusion- no reaction Past Psychological History: Anxiety, Bipolar, Depression Smoking Status: Former smoker Past Alcohol Use History: None Reported Past Drug Use History: None Reported - Past Family History Mother Family Medical History: No Reported History Additional Family Medical History / Comment(s): no history Father Family Medical History: No Reported History Additional Family Medical History / Comment(s): from alcoholism <Lee Mustafa - Last Filed: 04/20/19 20:58> General Exam Limitations: no limitations <Lee Mustafa - Last Filed: 04/20/19 20:58> Course <Rivera Kinney - Last Filed: 04/20/19 13:18> Vital Signs 04/20/19 04/20/19 04/20/19 10:26 11:05 13:00 Temperature 97.9 F Pulse Rate 67 87 87 Respiratory 20 18 18 Rate Blood Pressure 97/70 87/70 129/74 O2 Sat by Pulse 90 L 99 98 Oximetry 04/20/19 14:40 Temperature Pulse Rate 98 Respiratory 18 Rate Blood Pressure 105/75 O2 Sat by Pulse 98 Oximetry - Reevaluation(s) Reevaluation #1: 04/20/19 13:18 EKG: Normal sinus rhythm, incomplete left bundle branch block, rate of 86, MO interval 176, QRS duration 108 on the QTC 461, no ST segment elevation, similar compared to previous EKG January 2019. (Rivera Kinney) Medical Decision Making - Lab Data Result diagrams: 04/20/19 10:57 04/20/19 10:57 <Rivera Kinney - Last Filed: 04/20/19 13:18> - Lab Data Result diagrams: 04/20/19 10:57 04/20/19 10:57 <Lee Mustafa - Last Filed: 04/20/19 20:58> - Lab Data Lab Results 01/21/20 01/21/20 01/21/20 Range/Units 10:57 10:57 10:57 WBC 9.4 (3.8-10.6) k/uL RBC 4.36 (3.80-5.40) m/uL Hgb 13.4 (11.4-16.0) gm/dL Hct 43.9 (34.0-46.0) % MCV 100.7 H (80.0-100.0) fL MCH 30.8 (25.0-35.0) pg MCHC 30.6 L (31.0-37.0) g/dL RDW 20.3 H (11.5-15.5) % Plt Count 677 H (150-450) k/uL Neutrophils % 87 % Lymphocytes % 7 % Monocytes % 4 % Eosinophils % 1 % Basophils % 1 % Neutrophils # 8.2 H (1.3-7.7) k/uL Lymphocytes # 0.6 L (1.0-4.8) k/uL Monocytes # 0.3 (0-1.0) k/uL Eosinophils # 0.1 (0-0.7) k/uL Basophils # 0.1 (0-0.2) k/uL Hypochromasia Marked Anisocytosis Moderate Macrocytosis Moderate Sodium 135 L (137-145) mmol/L Potassium 5.0 (3.5-5.1) mmol/L Chloride 111 H (98-107) mmol/L Carbon Dioxide 6 L* (22-30) mmol/L Anion Gap 18 mmol/L BUN 43 H (7-17) mg/dL Creatinine 3.76 H (0.52-1.04) mg/dL Est GFR (CKD-EPI)AfAm 14 (>60 ml/min/1.73 sqM) Est GFR (CKD-EPI)NonAf 12 (>60 ml/min/1.73 sqM) Glucose 113 H (74-99) mg/dL Plasma Lactic Acid J[place] (0.7-2.0) mmol/L Calcium 9.4 (8.4-10.2) mg/dL Total Bilirubin 0.6 (0.2-1.3) mg/dL AST 22 (14-36) U/L ALT 17 (4-34) U/L Alkaline Phosphatase 160 H (38-126) U/L Total Protein 8.5 H (6.3-8.2) g/dL Albumin 4.9 (3.5-5.0) g/dL Urine Color Yellow Urine Appearance Clear (Clear) Urine pH 8.0 (5.0-8.0) Ur Specific [place] 1.011 (1.001-1.035) Urine Protein 1+ H (Negative) Urine Glucose (UA) Negative (Negative) Urine Ketones Negative (Negative) Urine Blood Trace H (Negative) Urine Nitrite Negative (Negative) Urine Bilirubin Negative (Negative) Urine Urobilinogen <2.0 (<2.0) mg/dL Ur Leukocyte Esterase Trace H (Negative) Urine RBC 2 (0-5) /hpf Urine WBC 4 (0-5) /hpf Urine Bacteria Rare H (None) /hpf Urine Mucus Rare H (None) /hpf 04/20/19 Range/Units 10:57 WBC (3.8-10.6) k/uL RBC (3.80-5.40) m/uL Hgb (11.4-16.0) gm/dL Hct (34.0-46.0) % MCV (80.0-100.0) fL MCH (25.0-35.0) pg MCHC (31.0-37.0) g/dL RDW (11.5-15.5) % Plt Count (150-450) k/uL Neutrophils % % Lymphocytes % % Monocytes % % Eosinophils % % Basophils % % Neutrophils # (1.3-7.7) k/uL Lymphocytes # (1.0-4.8) k/uL Monocytes # (0-1.0) k/uL Eosinophils # (0-0.7) k/uL Basophils # (0-0.2) k/uL Hypochromasia Anisocytosis Macrocytosis Sodium (137-145) mmol/L Potassium (3.5-5.1) mmol/L Chloride (98-107) mmol/L Carbon Dioxide (22-30) mmol/L Anion Gap mmol/L BUN (7-17) mg/dL Creatinine (0.52-1.04) mg/dL Est GFR (CKD-EPI)AfAm (>60 ml/min/1.73 sqM) Est GFR (CKD-EPI)NonAf (>60 ml/min/1.73 sqM) Glucose (74-99) mg/dL Plasma Lactic Acid J[place]inder 1.2 (0.7-2.0) mmol/L Calcium (8.4-10.2) mg/dL Total Bilirubin (0.2-1.3) mg/dL AST (14-36) U/L ALT (4-34) U/L Alkaline Phosphatase (38-126) U/L Total Protein (6.3-8.2) g/dL Albumin (3.5-5.0) g/dL Urine Color Urine Appearance (Clear) Urine pH (5.0-8.0) Ur Specific [place] (1.001-1.035) Urine Protein (Negative) Urine Glucose (UA) (Negative) Urine Ketones (Negative) Urine Blood (Negative) Urine Nitrite (Negative) Urine Bilirubin (Negative) Urine Urobilinogen (<2.0) mg/dL Ur Leukocyte Esterase (Negative) Urine RBC (0-5) /hpf Urine WBC (0-5) /hpf Urine Bacteria (None) /hpf Urine Mucus (None) /hpf Disposition <Rivera Kinney - Last Filed: 04/20/19 13:18> Is patient prescribed a controlled substance at d/c from ED?: No Time of Disposition: 14:17 <Lee Mustafa - Last Filed: 04/20/19 20:58> Clinical Impression: Acute kidney injury Disposition: ADMITTED IP TO THIS HOSP Condition: Fair
[2019-04-20 11:14] LABS: Anisocytosis Moderate; Basophils # (A) 0.1 k/uL (0-0.2); Basophils % (A) 1 %; Eosinophils # (A) 0.1 k/uL (0-0.7); Eosinophils % (A) 1 %; HCT 43.9 % (34.0-46.0); HGB 13.4 gm/dL (11.4-16.0); Hypochromasia Marked; Lymphocytes # (A) 0.6 k/uL (1.0-4.8); Lymphocytes % (A) 7 %; MCH 30.8 pg (25.0-35.0); MCHC 30.6 g/dL (31.0-37.0); MCV 100.7 fL (80.0-100.0); Macrocytosis Moderate; Monocytes # (A) 0.3 k/uL (0-1.0); Monocytes % (A) 4 %; Neutrophils # (A) 8.2 k/uL (1.3-7.7); Neutrophils % (A) 87 %; Platelet Count 677 k/uL (150-450); RBC 4.36 m/uL (3.80-5.40); RDW 20.3 % (11.5-15.5); WBC 9.4 k/uL (3.8-10.6)
[2019-04-20 11:18] LABS: Appearance,Urine Clear (Clear); Bacteria,Urine Rare /hpf; Bilirubin,Urine Negative (Negative); Blood,Urine Trace (Negative); Color,Urine Yellow; Glucose,Urine (UA) Negative (Negative); Ketones,Urine Negative (Negative); Leukocyte Esterase,Urine Trace (Negative); Mucus,Urine Rare /hpf; Nitrite,Urine Negative (Negative); Protein,Urine 1+ (Negative); RBC,Urine 2 /hpf (0-5); Specific Gravity,Urine 1.011 (1.001-1.035); Urobilinogen,Urine <2.0 mg/dL (<2.0); WBC,Urine 4 /hpf (0-5)
[2019-04-20 11:22] LABS: Albumin 4.9 g/dL (3.5-5.0); Calcium 9.4 mg/dL (8.4-10.2); Total Bilirubin 0.6 mg/dL (0.2-1.3); Total Protein 8.5 g/dL (6.3-8.2)
[2019-04-20] MEDS ORDERED: SODIUM CHLORIDE 0.9% 500 ML 500 ML IV ONE (12:13)
[2019-04-20] MEDS ORDERED: SODIUM CHLORIDE 0.9% 1,000 ML IV SCH (12:15)
--- NOTE | 2019-04-20 12:43 | CT ---
EXAMINATION TYPE: CT abdomen pelvis wo con DATE OF EXAM: 04/20/2019 COMPARISON: 02/02/2019 HISTORY: Generalized abdominal pain, nausea, vomiting CT DLP: 378.6 mGycm Automated exposure control for dose reduction was used. TECHNIQUE: Helical acquisition of images was performed from the lung bases through the pelvis. FINDINGS: LUNG BASES: No significant abnormality is appreciated. LIVER/GB: There is similar appearance of intrahepatic and extra hepatic biliary ductal dilatation in comparison to the prior exam. This is preferential within the left hepatic lobe. Gallbladder surgical ly absent. Again choledochal cyst is possible as etiology. Main pancreatic duct is upper limits of no rmal but has not increased in size from the prior exam. The liver is enlarged in craniocaudal dimensi on measuring 20.0 cm. PANCREAS: No significant abnormality is seen. SPLEEN: No significant abnormality is seen. ADRENALS: No significant abnormality is seen. KIDNEYS: Urinary bladder is surgically absent. Ileal conduit has been performed. There is a duplex co llecting system on the right with atrophic lower pole moiety, stable from the prior exam. Right-sided mild pelvocaliectasis is stable. Kidneys are overall enhance symmetrically with delayed excretion ADENOPATHY: None visualized. OSSEOUS STRUCTURES: Vacuum disc at L2-3 degenerative disc. BOWEL: Postsurgical changes are seen of the bowel with multiple small bowel anastomotic sites to for m ileal conduit. Bowel gas pattern nonspecific. OTHER: Bilateral breast implants are partially visualized. Spinal nerve root stimulator is also parti ally visualized . Aorta of normal caliber. IMPRESSION: 1. Extensive postsurgical change with a few prominent small bowel loops which are fluid-filled may be postoperative although an ileus or partial obstructive pattern in the differential diagnosis. 2 intra and extrahepatic biliary ductal dilation likely related to previous cholecystectomy. Correlat e with MRCP or ERCP as clinically warranted. Lack of contrast limits assessment of the ampullary and pancreatic region. 3. Mild bilateral pelvocaliectasis greater on the right is stable from the prior exam. No obstructing stone. Suspect a duplicated collecting system on the right with atrophy of the lower pole right kidn ey.
[2019-04-20] MEDS ORDERED: HYDROmorphone 1 MG/ML 1 ML SYRINGE IVP STA (13:20)
[2019-04-20] MEDS ORDERED: cefTRIAXone IN SWFI 1,000 MG/10 ML SYRINGE IVP STA (13:20)
[2019-04-20] MEDS ORDERED: HYDROmorphone 1 MG/ML 1 ML SYRINGE IVP PRN (14:15)
[2019-04-20] MEDS ORDERED: HYDROmorphone 0.5 MG/0.5 ML SYRINGE IVP PRN (14:15)
[2019-04-20] MEDS ORDERED: NALOXONE 0.4 MG/ML 1 ML VIAL IV PRN (14:15)
[2019-04-20] MEDS ORDERED: ONDANSETRON 4 MG/2 ML VIAL IVP PRN (14:15)
--- NOTE | 2019-04-20 14:49 | US ---
EXAMINATION TYPE: US abdomen limited DATE OF EXAM: 04/20/2019 COMPARISON: CT earlier today and older CTs CLINICAL HISTORY: ruq abd us . abd pain, cholecystectomy, abn CT EXAM MEASUREMENTS: Liver Length: 15.9 cm Gallbladder Wall: N/A CBD: 1.4 cm Right Kidney: 9.9 x 4.5 x 3.4 cm pt has urostomy under ribcage and bowel gas that limits views Pancreas: very limited views Liver: dilated intrahepatic ducts with no obvious source Gallbladder: Surgically absent Evidence for sonographic Hyman's sign: no CBD: dilated with no obvious obstruction seen Right Kidney: appearance of double collecting system with atrophied inferior lobe as seen on CT Suboptimal study due to urostomy and overlying bowel gas. Suboptimal evaluation of pancreas on images saved, recent CT shows no obvious pancreatic mass, portions of duct appear dilated. Visualized liver is heterogeneously hyperechoic confirmation of moderate central intrahepatic biliary dilatation. Als o demonstration of mild to moderate dilatation of common bile duct. Gallbladder surgically absent. Li mited images right kidney show no gross hydronephrosis. IMPRESSION: Suboptimal study, Patient has persistent fairly moderate central intrahepatic and extra h epatic biliary dilatation which has not significantly changed from original CT March 21, 2016 and multiple interval CTs and MRIs. More mild pancreatic ductal dilatation with double duct sign also not significantly changed from prior studies. Correlate clinically.
[2019-04-20 15:41] LABS: VBG PH 7.04 (7.31-7.41)
[2019-04-20] MEDS: DEXTROSE 5% IN WATER 1,000 ML with SODIUM BICARB (1 MEQ/ML) 150 ML IV SCH (18:21)
[2019-04-20] MEDS ORDERED: ALBUTEROL NEBULIZED 2.5 MG/3 ML INHALATION PRN (20:01)
[2019-04-20] MEDS ORDERED: SUMAtriptan SUCCINATE 50 MG TAB PO PRN (20:01)
[2019-04-20] MEDS ORDERED: DIPHENOX-ATROP 2.5-0.025 MG 1 EACH TAB PO PRN (20:01)
[2019-04-20] MEDS ORDERED: DICYCLOMINE 20 MG TAB PO PRN (20:01)
[2019-04-20] MEDS ORDERED: CLOBETASOL PROP 0.05% CR 15GM TOPICAL PRN (20:01)
[2019-04-20] MEDS ORDERED: LISINOPRIL 20 MG TAB PO SCH (21:00)
[2019-04-20] MEDS: carBAMazepine 200 MG TAB PO SCH (21:13)
[2019-04-20] MEDS: METOPROLOL TARTRATE 25 MG TAB PO SCH (21:13)
[2019-04-20] MEDS: PROMETHAZINE 25 MG TAB PO SCH (21:14)
[2019-04-20] MEDS: busPIRone HCl 5 MG TAB PO SCH (21:14)
[2019-04-20] MEDS: TOPIRAMATE 100 MG TAB PO SCH (21:14)
[2019-04-20] MEDS: HYDROcodone/APAP 10-325MG 1 EACH TAB PO PRN (21:14)
[2019-04-21] MEDS: DEXTROSE 5% IN WATER 1,000 ML with SODIUM BICARB (1 MEQ/ML) 150 ML IV SCH ×3 (03:51→20:51)
[2019-04-21 07:00] LABS: Glucose,Whole Blood 120 mg/dL (75-99)
[2019-04-21] MEDS: IPRATROPIUM 0.5 MG/2.5 ML NEBU INHALATION SCH ×4 (07:27→19:38)
[2019-04-21 08:03] LABS: Calcium 8.2 mg/dL (8.4-10.2); Magnesium 2.2 mg/dL (1.6-2.3)
[2019-04-21] MEDS: DULoxetine HCL 60 MG CAPSULE.DR PO SCH (08:31)
[2019-04-21] MEDS: FLUTICASONE 50MCG/SPRAY NASAL 16GM EA NOSTRIL SCH (08:31)
[2019-04-21] MEDS: PROMETHAZINE 25 MG TAB PO SCH ×2 (08:32→21:16)
[2019-04-21] MEDS: METOPROLOL TARTRATE 25 MG TAB PO SCH ×2 (08:32→21:16)
[2019-04-21] MEDS: TOPIRAMATE 100 MG TAB PO SCH ×4 (08:32→22:23)
[2019-04-21] MEDS: busPIRone HCl 5 MG TAB PO SCH ×3 (08:32→22:22)
[2019-04-21] MEDS: LORATADINE 10 MG TAB PO SCH (08:32)
[2019-04-21] MEDS: carBAMazepine 200 MG TAB PO SCH ×2 (08:32→21:17)
[2019-04-21] MEDS: LORazepam 2 MG/ML INJ IV PRN ×2 (08:40→21:17)
[2019-04-21] MEDS: HYDROcodone/APAP 10-325MG 1 EACH TAB PO PRN ×2 (08:41→21:16)
--- NOTE | 2019-04-21 10:02 | P.NPCON ---
History of Present Illness - Reason for Consult acute renal failure, metabolic acidosis - History of Present Illness Reason for consultation: Acute kidney injury and metabolic acidosis History of present illness: Patient is a 58-year-old female seen in renal consultation for acute kidney injury and metabolic acidosis. Patient's creatinine on admission was 3.76 and is 3.5 today. Bicarb level was 6 and I started her on isotonic bicarbonate drip last night. It is up to 10 this morning. Patient has a urostomy and states she's had multiple urinary infections since. Patient states the last few days oral intake has been poor and she's been having episodes of vomiting and diarrhea. She admits to a fall lower to her urine and also dark color. She denies regular use of nonsteroidals. She does report chills. Patient states she was started on Bactrim for the UTI and has been taking it for the last few days. However she has not noticed improvement in her symptoms. Patient is afebrile. Hemodynamically stable. She is also taking lisinopril 40 mg once daily. Last dose was given last night. She did receive a dose of IV Rocephin in the ER last night. No hydronephrosis noted on CAT scan. Vital signs are stable. General: The patient appeared well nourished and normally developed. HEENT: Head exam is unremarkable. Neck is without jugular venous distension. LUNGS: Lungs are clear to auscultation and percussion. Breath sounds decreased. HEART: Rate and Rhythm are regular. First and second heart sounds normal. No murmurs, rubs or gallops. ABDOMEN: Abdominal exam reveals normal bowel sounds. Non-tender and non- distended. No evidence of peritonitis. EXTREMITITES: No clubbing, cyanosis, or edema. Past Medical History Past Medical History: Blood Disorder, Hypertension Additional Past Medical History / Comment(s): past Obesity with previous bariatric surgery, fluctuating body weight, endometreosis,general anxiety di sorder, bipolar disorder, hypertension, chronic back pain, history of iron deficiency,"low rbc's" history of anemia requiring blood transfusions, uti,falls and in may with fall had fx to lt hip but no sx, dizzy spells, chronic samuel cath- bladder only holds 100 ml's. pt stated it was changed today 10-20-17 History of Any Multi-Drug Resistant Organisms: None Reported Past Surgical History: Appendectomy, Bariatric Surgery, Bladder Surgery, Kanu suman Section, Cholecystectomy, Hysterectomy, Tubal Ligation Additional Past Surgical History / Comment(s): bladder suspension, gastric bypass, colon volvulus had exporatory lap w/lysis of adhesions and rt colectomy Past Anesthesia/Blood Transfusion Reactions: No Reported Reaction Additional Past Anesthesia/Blood Transfusion Reaction / Comment(s): blood trandfusion- no reaction Past Psychological History: Anxiety, Bipolar, Depression Smoking Status: Former smoker Past Alcohol Use History: None Reported Past Drug Use History: None Reported - Past Family History Mother Family Medical History: No Reported History Additional Family Medical History / Comment(s): no history Father Family Medical History: No Reported History Additional Family Medical History / Comment(s): from alcoholism Medications and Allergies Home Medications Medication Instructions Recorded Confirmed Type Albuterol Inhaler [Ventolin Hfa 2 puff INHALATION RT-Q4H PRN 03/21/16 04/20/19 History Inhaler] DULoxetine HCL [Cymbalta] 120 mg PO DAILY 03/21/16 04/20/19 History HYDROcodone/APAP 10-325MG [[place] 1 tab PO TID PRN 03/21/16 04/20/19 History 10-325] SUMAtriptan SUCCINATE [Imitrex] 100 mg PO DAILY PRN 03/21/16 04/20/19 History carBAMazepine [TEGretol] 400 mg PO Q12H 03/21/16 04/20/19 History Lisinopril [Zestril] 40 mg PO HS 02/02/19 04/20/19 History Metoprolol Tartrate 25 mg PO BID 02/02/19 04/20/19 History busPIRone HCL 15 mg PO TID 02/02/19 04/20/19 History ALPRAZolam [Xanax] 1 mg PO QID PRN 04/20/19 04/20/19 History Cetirizine HCl [Zyrtec] 10 mg PO DAILY 04/20/19 04/20/19 History Clobetasol Propionate [Temovate 1 applic TOPICAL DAILY PRN 04/20/19 04/20/19 History 0.05% Cream] Dicyclomine HCl 20 mg PO TID PRN 04/20/19 04/20/19 History Diphenoxylate HCl/Atropine 1 tab PO QID PRN 04/20/19 04/20/19 History [Lomotil 2.5-0.025 mg Tablet] Fluticasone Nasal [place] [Flonase 1 spray EA NOSTRIL DAILY 04/20/19 04/20/19 History Nasal [place]] Promethazine HCl 25 mg PO Q12H 04/20/19 04/20/19 History Sulfamethox-Tmp 800-160Mg [Bactrim 1 tab PO Q12HR 04/20/19 04/20/19 History DS 800-160 mg] Tiotropium [place] [Spiriva] 1 cap INHALATION RT-DAILY 04/20/19 04/20/19 History Topiramate [Topamax] 100 mg PO QID 04/20/19 04/20/19 History Allergies Allergy/AdvReac Type Severity Reaction Status Date / Time No Known Allergies Allergy Verified 04/20/19 14:40 Physical Exam Vitals: Vital Signs Temp Pulse Pulse Resp BP BP Pulse Ox 04/21/19 07:39 70 04/21/19 07:28 74 04/21/19 04:46 97.6 F 79 16 92/60 93 L 04/20/19 22:31 98.1 F 91 16 119/64 100 04/20/19 15:30 97.7 F 89 18 137/77 98 04/20/19 14:40 98 18 105/75 98 04/20/19 13:00 87 18 129/74 98 04/20/19 11:05 87 18 87/70 99 04/20/19 10:26 97.9 F 67 20 97/70 90 L Intake and Output 04/20/19 04/21/19 04/21/19 22:59 06:59 14:59 Intake Total 590 1500 Balance 590 1500 Intake: Intake, IV Titration 1500 Amount Dextrose 5% in Water 1, 1500 000 ml @ 125 mls/hr IV . Q9H12M HARRIET with Sodium Bicarb (1 Meq/ml) 150 ml Rx#:[id number] Oral 590 Other: Voiding Method Ileal Conduit (Right) Ileal Conduit (Right) Weight 61.689 kg Results - Lab Results Most recent lab results Calcium 8.2 mg/dL (8.4-10.2) L 04/21/19 07:20 Magnesium 2.2 mg/dL (1.6-2.3) 04/21/19 07:20 04/20/19 10:57 04/21/19 07:20 Assessment and Plan Plan: Assessment: 1. Acute kidney injury mostly prerenal secondary to intravascular volume depletion from vomiting, diarrhea and further worsened with the use of lisinopril. She was also on Bactrim which will impair creatinine secretion. Creatinine 3.76 on admission and is 2.5 today. Baseline creatinine near 1. 2. Metabolic acidosis secondary to acute kidney injury, diarrhea and fluid loss through ileal loop urostomy. Additionally she is also on Topamax which will induce bicarb loss leading to acidosis. 3. Hyponatremia secondary to acute kidney injury. 4. Benign hypertension. Controlled. 5. Status post urinary bladder removal with ileal conduit. Plan: Maintain isotonic bicarbonate drip to be run at 125 mL an hour. Discontinue lisinopril. Follow-up cultures. Repeat electrolytes in the morning. Thank you for the consultation. I will continue to follow the patient with you during her hospital stay.
--- NOTE | 2019-04-21 11:52 | P.GSCN ---
History of Present Illness Consult date: 04/21/19 Reason for Consult: Abdominal pain History of present illness: 4-year-old female known to our service. Patient with history of previous gastri c bypass. 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 Patient with known intra-abdominal adhesions. Apparently was having recurrent urinary infections and decided to undergo cystectomy with ileal loop conduit. Recently he has had some abdominal bloating, dry heaves, back pain. Describes recent kidney infections and believes that is the etiology. Last bowel movement 2 days ago. Was taking Imodium for diarrhea which she deals with on a chronic basis. CAT scan was performed which showed some distended bowel loops ileus versus obstruction cannot be excluded. Review of Systems The patient denies any acute changes in vision or hearing, no dysphagia or odynophagia, no chest pain or shortness of breath, no dysuria or hematuria, no headache, no runny nose, no rectal bleeding or melena, no unexplained weight loss Past Medical History Past Medical History: Blood Disorder, Hypertension Additional Past Medical History / Comment(s): past Obesity with previous mc atric surgery, fluctuating body weight, endometreosis,general anxiety disorder, bipolar disorder, hypertension, chronic back pain, history of iron deficiency,"low rbc's" history of anemia requiring blood transfusions, uti,falls and in may with fall had fx to lt hip but no sx, dizzy spells, chronic samuel cath- bladder only holds 100 ml's. pt stated it was changed today 10-20-17 History of Any Multi-Drug Resistant Organisms: None Reported Past Surgical History: Appendectomy, Bariatric Surgery, Bladder Surgery, Section, Cholecystectomy, Hysterectomy, Tubal Ligation Additional Past Surgical History / Comment(s): bladder suspension, gastric bypass, colon volvulus had exporatory lap w/lysis of adhesions and rt colectomy Past Anesthesia/Blood Transfusion Reactions: No Reported Reaction Additional Past Anesthesia/Blood Transfusion Reaction / Comm: blood trandfusion- no reaction Past Psychological History: Anxiety, Bipolar, Depression Smoking Status: Former smoker Past Alcohol Use History: None Reported Past Drug Use History: None Reported - Past Family History Mother Family Medical History: No Reported History Additional Family Medical History / Comment(s): no history Father Family Medical History: No Reported History Additional Family Medical History / Comment(s): from alcoholism Medications and Allergies Home Medications Medication Instructions Recorded Confirmed Type Albuterol Inhaler [Ventolin Hfa 2 puff INHALATION RT-Q4H PRN 03/21/16 04/20/19 History Inhaler] DULoxetine HCL [Cymbalta] 120 mg PO DAILY 03/21/16 04/20/19 History HYDROcodone/APAP 10-325MG [[place] 1 tab PO TID PRN 03/21/16 04/20/19 History 10-325] SUMAtriptan SUCCINATE [Imitrex] 100 mg PO DAILY PRN 03/21/16 04/20/19 History carBAMazepine [TEGretol] 400 mg PO Q12H 03/21/16 04/20/19 History Lisinopril [Zestril] 40 mg PO HS 02/02/19 04/20/19 History Metoprolol Tartrate 25 mg PO BID 02/02/19 04/20/19 History busPIRone HCL 15 mg PO TID 02/02/19 04/20/19 History ALPRAZolam [Xanax] 1 mg PO QID PRN 04/20/19 04/20/19 History Cetirizine HCl [Zyrtec] 10 mg PO DAILY 04/20/19 04/20/19 History Clobetasol Propionate [Temovate 1 applic TOPICAL DAILY PRN 04/20/19 04/20/19 History 0.05% Cream] Dicyclomine HCl 20 mg PO TID PRN 04/20/19 04/20/19 History Diphenoxylate HCl/Atropine 1 tab PO QID PRN 04/20/19 04/20/19 History [Lomotil 2.5-0.025 mg Tablet] Fluticasone Nasal [place] [Flonase 1 spray EA NOSTRIL DAILY 04/20/19 04/20/19 History Nasal [place]] Promethazine HCl 25 mg PO Q12H 04/20/19 04/20/19 History Sulfamethox-Tmp 800-160Mg [Bactrim 1 tab PO Q12HR 04/20/19 04/20/19 History DS 800-160 mg] Tiotropium [place] [Spiriva] 1 cap INHALATION RT-DAILY 04/20/19 04/20/19 History Topiramate [Topamax] 100 mg PO QID 04/20/19 04/20/19 History Allergies Allergy/AdvReac Type Severity Reaction Status Date / Time No Known Allergies Allergy Verified 04/20/19 14:40 Surgical - Exam Vital Signs Temp Pulse Resp BP Pulse Ox 97.9 F 67 20 97/70 90 L 04/20/19 10:26 04/20/19 10:26 04/20/19 10:26 04/20/19 10:26 04/20/19 10:26 Physical exam: General: Well-developed, well-nourished HEENT: Normocephalic, sclerae nonicteric Abdomen: Mild distention, mild diffuse tenderness, right-sided ostomy, midline incision healed nicely Extremities: No edema Neuro: Alert and oriented Results - Labs 04/20/19 10:57 04/21/19 07:20 Abnormal Lab Results - Last 24 Hours (Table) 04/20/19 04/21/19 04/21/19 Range/Units 15:01 06:58 07:20 VBG pH 7.04 L* (7.31-7.41) VBG pCO2 27 L (37-51) mmHg VBG HCO3 7 L* (24-28) mmol/L Sodium 132 L (137-145) mmol/L Chloride 110 H (98-107) mmol/L Carbon Dioxide 10 L (22-30) mmol/L BUN 47 H (7-17) mg/dL Creatinine 3.50 H (0.52-1.04) mg/dL POC Glucose (mg/dL) 120 H (75-99) mg/dL Calcium 8.2 L (8.4-10.2) mg/dL Diabetes panel 04/21/19 Range/Units 07:20 Sodium 132 L (137-145) mmol/L Potassium 4.0 (3.5-5.1) mmol/L Chloride 110 H (98-107) mmol/L Carbon Dioxide 10 L (22-30) mmol/L BUN 47 H (7-17) mg/dL Creatinine 3.50 H (0.52-1.04) mg/dL Glucose 99 (74-99) mg/dL Calcium 8.2 L (8.4-10.2) mg/dL Calcium panel 04/21/19 Range/Units 07:20 Calcium 8.2 L (8.4-10.2) mg/dL Pituitary panel 04/21/19 Range/Units 07:20 Sodium 132 L (137-145) mmol/L Potassium 4.0 (3.5-5.1) mmol/L Chloride 110 H (98-107) mmol/L Carbon Dioxide 10 L (22-30) mmol/L BUN 47 H (7-17) mg/dL Creatinine 3.50 H (0.52-1.04) mg/dL Glucose 99 (74-99) mg/dL Calcium 8.2 L (8.4-10.2) mg/dL Adrenal panel 04/21/19 Range/Units 07:20 Sodium 132 L (137-145) mmol/L Potassium 4.0 (3.5-5.1) mmol/L Chloride 110 H (98-107) mmol/L Carbon Dioxide 10 L (22-30) mmol/L BUN 47 H (7-17) mg/dL Creatinine 3.50 H (0.52-1.04) mg/dL Glucose 99 (74-99) mg/dL Calcium 8.2 L (8.4-10.2) mg/dL Assessment and Plan (1) Abdominal pain Narrative/Plan: Patient with abdominal pain and dry heaves. Some distention. Ileus versus small bowel obstruction suspected. Continue IV hydration for acute renal injury. Will begin clear liquids and advance to full liquids if tolerates. We'll follow. Current Visit: Yes Status: Acute Code(s): R10.9 - UNSPECIFIED ABDOMINAL PAIN SNOMED Code(s): 44402336
--- NOTE | 2019-04-21 17:35 | P.HPIM ---
History of Present Illness H&P Date: 04/21/19 Chief Complaint: Weak and tired History of presenting complaint: This is a 58-year-old patient of Dr. Bolanos. Chronic stable medical conditions include hypertension, obesity with previous bariatric surgery, anxiety disorder, bipolar disorder, hypertension, chronic back pain,. Patient had repeated blood infection with UTI and a chronic Samuel catheter for 2 years. Therefore patient underwent partial bladder resection on January 08, 2019 [facility]. urostomy was created. Subsequently bilateral kidney stents were removed. Patient presents feeling weak tired rundown very poor appetite. Tired lethargic. Low-grade fever. Barely eating. Decreased output through the urostomy bag. Found to be hypotensive in the ER. No bowel movement for 4 days. Normally has a bowel movement every day. Review of systems: GEN.: Weak tired chills EYES: None HEENT: None NECK: None RESPIRATORY: None CARDIOVASCULAR: None GASTROINTESTINAL: None GENITOURINARY: As above MUSCULOSKELETAL: Some joint complaints LYMPHATICS: None HEMATOLOGICAL: None PSYCHIATRY: Anxious NEUROLOGICAL: None Social history: lives alone, sometimes daughter at home. May use a cane. Patient smoked for close to 20 years and stopped in 1998. 2 packs a day. No alcohol. Family history: Reviewed, noncontributory to presentation Physical examination: VITAL SIGNS: 97.9, 67, 20, 97/70, 90% on room air GENERAL: BMI 24.9, laying in bed rather tired a bit lethargic EYES: Pupils equal. Conjunctiva normal. HEENT: External appearance of nose and ears normal, oral cavity grossly normal. NECK: JVD not raised; masses not palpable. HEART: First and second heart sounds are normal; no edema. LUNGS: Respiratory rate normal; clear to auscultation. ABDOMEN: Soft, nontender, liver spleen not palpable, no masses palpable, midline scar is present, urostomy bag PSYCH: Tired but able to answer questions NEUROLOGICAL: Cranial nerves grossly intact; no facial asymmetry, power and sensation grossly intact. LYMPHATICS: No lymph nodes palpable in the axilla and neck INVESTIGATIONS, reviewed in the clinical context: White count 9.4 hemoglobin 13.4 platelets 677 Sodium 135 potassium 5 bicarb 6 bun 43 crit was 3.76 Labs from 02/05/2019 showed a BUN [address] abdomen-possible ileus or partial obstructive pattern Assessment: -Severe AK I, likely prerenal from decreased oral intake and also patient being on Bactrim -Probable ileus, cannot rule out mechanical bowel obstruction less appears less likely. Abdomen otherwise is soft -Acute metabolic encephalopathy, probably from renal failure -Acute UTI with infection of the urinary tract -Acute severe metabolic acidosis from renal failure -Clinical dehydration -Essential hypertension -Bipolar disorder -Bladder surgery with ileal conduit Plan: Patient started and IV fluids. Bicarbonate. Bactrim has been discontinued. Follow I's closely. General surgery and nephrology was consulted. Patient was initially nothing by mouth started on clear liquid diet. Advance to full liquid as tolerated-per surgery. Repeat labs. Possible UTI. Discussed with patient. Past Medical History Past Medical History: Blood Disorder, Hypertension Additional Past Medical History / Comment(s): past Obesity with previous bariatric surgery, fluctuating body weight, endometreosis,general anxiety disorder, bipolar disorder, hypertension, chronic back pain, history of iron deficiency,"low rbc's" history of anemia requiring blood transfusions, uti,falls and in may with fall had fx to lt hip but no sx, dizzy spells, chronic samuel cath- bladder only holds 100 ml's. pt stated it was changed today 10-20-17 History of Any Multi-Drug Resistant Organisms: None Reported Past Surgical History: Appendectomy, Bariatric Surgery, Bladder Surgery, Section, Cholecystectomy, Hysterectomy, Tubal Ligation Additional Past Surgical History / Comment(s): bladder suspension, gastric bypass, colon volvulus had exporatory lap w/lysis of adhesions and rt colectomy Past Anesthesia/Blood Transfusion Reactions: No Reported Reaction Additional Past Anesthesia/Blood Transfusion Reaction / Comment(s): blood trandfusion- no reaction Past Psychological History: Anxiety, Bipolar, Depression Smoking Status: Former smoker Past Alcohol Use History: None Reported Past Drug Use History: None Reported - Past Family History Mother Family Medical History: No Reported History Additional Family Medical History / Comment(s): no history Father Family Medical History: No Reported History Additional Family Medical History / Comment(s): from alcoholism Medications and Allergies Home Medications Medication Instructions Recorded Confirmed Type Albuterol Inhaler [Ventolin Hfa 2 puff INHALATION RT-Q4H PRN 03/21/16 04/20/19 History Inhaler] DULoxetine HCL [Cymbalta] 120 mg PO DAILY 03/21/16 04/20/19 History HYDROcodone/APAP 10-325MG [[place] 1 tab PO TID PRN 03/21/16 04/20/19 History 10-325] SUMAtriptan SUCCINATE [Imitrex] 100 mg PO DAILY PRN 03/21/16 04/20/19 History carBAMazepine [TEGretol] 400 mg PO Q12H 03/21/16 04/20/19 History Lisinopril [Zestril] 40 mg PO HS 02/02/19 04/20/19 History Metoprolol Tartrate 25 mg PO BID 02/02/19 04/20/19 History busPIRone HCL 15 mg PO TID 02/02/19 04/20/19 History ALPRAZolam [Xanax] 1 mg PO QID PRN 04/20/19 04/20/19 History Cetirizine HCl [Zyrtec] 10 mg PO DAILY 04/20/19 04/20/19 History Clobetasol Propionate [Temovate 1 applic TOPICAL DAILY PRN 04/20/19 04/20/19 History 0.05% Cream] Dicyclomine HCl 20 mg PO TID PRN 04/20/19 04/20/19 History Diphenoxylate HCl/Atropine 1 tab PO QID PRN 04/20/19 04/20/19 History [Lomotil 2.5-0.025 mg Tablet] Fluticasone Nasal [place] [Flonase 1 spray EA NOSTRIL DAILY 04/20/19 04/20/19 History Nasal [place]] Promethazine HCl 25 mg PO Q12H 04/20/19 04/20/19 History Sulfamethox-Tmp 800-160Mg [Bactrim 1 tab PO Q12HR 04/20/19 04/20/19 History DS 800-160 mg] Tiotropium [place] [Spiriva] 1 cap INHALATION RT-DAILY 04/20/19 04/20/19 History Topiramate [Topamax] 100 mg PO QID 04/20/19 04/20/19 History Allergies Allergy/AdvReac Type Severity Reaction Status Date / Time No Known Allergies Allergy Verified 04/20/19 14:40 Physical Exam Vitals: Vital Signs Temp Pulse Pulse Resp BP BP Pulse Ox 04/21/19 07:39 70 04/21/19 07:28 74 04/21/19 04:46 97.6 F 79 16 92/60 93 L 04/20/19 22:31 98.1 F 91 16 119/64 100 04/20/19 15:30 97.7 F 89 18 137/77 98 04/20/19 14:40 98 18 105/75 98 04/20/19 13:00 87 18 129/74 98 04/20/19 11:05 87 18 87/70 99 Intake and Output 04/20/19 04/21/19 04/21/19 22:59 06:59 14:59 Intake Total 590 1500 Balance 590 1500 Intake: Intake, IV Titration 1500 Amount Dextrose 5% in Water 1, 1500 000 ml @ 125 mls/hr IV . Q9H12M [place] with Sodium Bicarb (1 Meq/ml) 150 ml Rx#:[id number] Oral 590 Other: Voiding Method Ileal Conduit (Right) Ileal Conduit (Right) Weight 61.689 kg Results CBC & Chem 7: 04/20/19 10:57 04/21/19 07:20 Labs: Abnormal Lab Results - Last 24 Hours (Table) 04/20/19 04/20/19 04/20/19 Range/Units 10:57 10:57 10:57 MCV 100.7 H (80.0-100.0) fL MCHC 30.6 L (31.0-37.0) g/dL RDW 20.3 H (11.5-15.5) % Plt Count 677 H (150-450) k/uL Neutrophils # 8.2 H (1.3-7.7) k/uL Lymphocytes # 0.6 L (1.0-4.8) k/uL VBG pH (7.31-7.41) VBG pCO2 (37-51) mmHg VBG HCO3 (24-28) mmol/L Sodium 135 L (137-145) mmol/L Chloride 111 H (98-107) mmol/L Carbon Dioxide 6 L* (22-30) mmol/L BUN 43 H (7-17) mg/dL Creatinine 3.76 H (0.52-1.04) mg/dL Glucose 113 H (74-99) mg/dL POC Glucose (mg/dL) (75-99) mg/dL Calcium (8.4-10.2) mg/dL Alkaline Phosphatase 160 H (38-126) U/L Total Protein 8.5 H (6.3-8.2) g/dL Urine Protein 1+ H (Negative) Urine Blood Trace H (Negative) Ur Leukocyte Esterase Trace H (Negative) Urine Bacteria Rare H (None) /hpf Urine Mucus Rare H (None) /hpf 04/20/19 04/21/19 04/21/19 Range/Units 15:01 06:58 07:20 MCV (80.0-100.0) fL MCHC (31.0-37.0) g/dL RDW (11.5-15.5) % Plt Count (150-450) k/uL Neutrophils # (1.3-7.7) k/uL Lymphocytes # (1.0-4.8) k/uL VBG pH 7.04 L* (7.31-7.41) VBG pCO2 27 L (37-51) mmHg VBG HCO3 7 L* (24-28) mmol/L Sodium 132 L (137-145) mmol/L Chloride 110 H (98-107) mmol/L Carbon Dioxide 10 L (22-30) mmol/L BUN 47 H (7-17) mg/dL Creatinine 3.50 H (0.52-1.04) mg/dL Glucose (74-99) mg/dL POC Glucose (mg/dL) 120 H (75-99) mg/dL Calcium 8.2 L (8.4-10.2) mg/dL Alkaline Phosphatase (38-126) U/L Total Protein (6.3-8.2) g/dL Urine Protein (Negative) Urine Blood (Negative) Ur Leukocyte Esterase (Negative) Urine Bacteria (None) /hpf Urine Mucus (None) /hpf Thrombosis Risk Factor Assmnt - Choose All That Apply Each Factor Represents 1 point: Age 41-60 years Each Risk Factor Represents 3 Points: History of DVT/PE Thrombosis Risk Factor Assessment Total Risk Factor Score: 4 Thrombosis Risk Factor Assessment Level: Moderate Risk
[2019-04-21] MEDS: ENOXAPARIN 40 MG/0.4 ML SYRINGE SQ SCH (18:11)
[2019-04-22] MEDS: DEXTROSE 5% IN WATER 1,000 ML with SODIUM BICARB (1 MEQ/ML) 150 ML IV SCH (05:26)
[2019-04-22] MEDS: IPRATROPIUM 0.5 MG/2.5 ML NEBU INHALATION SCH ×4 (07:07→21:37)
[2019-04-22 07:54] LABS: Calcium 8.2 mg/dL (8.4-10.2); Magnesium 2.1 mg/dL (1.6-2.3); Potassium 3.4 mmol/L (3.5-5.1)
[2019-04-22] MEDS: DULoxetine HCL 60 MG CAPSULE.DR PO SCH (08:45)
[2019-04-22] MEDS: FLUTICASONE 50MCG/SPRAY NASAL 16GM EA NOSTRIL SCH (08:45)
[2019-04-22] MEDS: METOPROLOL TARTRATE 25 MG TAB PO SCH ×2 (08:45→21:43)
[2019-04-22] MEDS: busPIRone HCl 5 MG TAB PO SCH ×3 (08:45→21:51)
[2019-04-22] MEDS: carBAMazepine 200 MG TAB PO SCH ×2 (08:45→21:43)
[2019-04-22] MEDS: LORATADINE 10 MG TAB PO SCH (08:47)
[2019-04-22] MEDS: PROMETHAZINE 25 MG TAB PO SCH ×2 (08:47→21:43)
[2019-04-22] MEDS: TOPIRAMATE 100 MG TAB PO SCH ×4 (08:47→21:43)
[2019-04-22] MEDS: HYDROcodone/APAP 10-325MG 1 EACH TAB PO PRN ×2 (08:56→18:21)
[2019-04-22] MEDS: LORazepam 2 MG/ML INJ IV PRN ×2 (08:56→21:51)
[2019-04-22] MEDS ORDERED: POTASSIUM CHLORIDE ER 20 MEQ TAB.ER PO STA (10:44)
--- NOTE | 2019-04-22 10:45 | P.PN ---
Subjective Patient is seen in follow-up for acute kidney injury and metabolic acidosis. Renal function is improving. Metabolic acidosis is also improving. She is currently maintained on bicarb drip. Currently on full liquid diet but had diarrhea as she states she is lactose intolerant. No chest pain or shortness of breath. No edema. Vital signs are stable. General: The patient appeared well nourished and normally developed. HEENT: Head exam is unremarkable. Neck is without jugular venous distension. LUNGS: Lungs are clear to auscultation and percussion. Breath sounds decreased. HEART: Rate and Rhythm are regular. First and second heart sounds normal. No murmurs, rubs or gallops. ABDOMEN: Abdominal exam reveals normal bowel sounds. Non-tender and non- distended. No evidence of peritonitis. EXTREMITITES: No clubbing, cyanosis, or edema. Objective - Vital Signs Vital signs: Vital Signs Temp 98.2 F 04/22/19 04:59 Pulse 70 04/22/19 04:59 Resp 16 04/22/19 04:59 BP 103/55 04/22/19 04:59 Pulse Ox 99 04/22/19 04:59 Intake & Output 04/21/19 04/22/19 04/22/19 18:59 06:59 18:59 Intake Total 1600 1375 Balance 1600 1375 Intake: Intake, IV Titration 1000 1375 Amount Dextrose 5% in Water 1, 1000 1375 000 ml @ 125 mls/hr IV . Q9H12M [place] with Sodium Bicarb (1 Meq/ml) 150 ml Rx#:[id number] Oral 600 Other: Voiding Method Ileal Conduit (Right) Ileal Conduit (Right) # Voids 4 1 - Labs CBC & Chem 7: 04/20/19 10:57 04/22/19 06:56 Labs: Abnormal Lab Results - Last 24 Hours (Table) 04/22/19 Range/Units 06:56 Sodium 133 L (137-145) mmol/L Potassium 3.4 L (3.5-5.1) mmol/L Carbon Dioxide 19 L (22-30) mmol/L BUN 39 H (7-17) mg/dL Creatinine 1.83 H (0.52-1.04) mg/dL Glucose 114 H (74-99) mg/dL Calcium 8.2 L (8.4-10.2) mg/dL Microbiology - Last 24 Hours (Table) 04/20/19 15:01 Blood Culture - Preliminary Blood No Growth after 24 hours Assessment and Plan Plan: Assessment: 1. Acute kidney injury mostly prerenal secondary to intravascular volume depletion from vomiting, diarrhea and further worsened with the use of lisinopril. She was also on Bactrim which will impair creatinine secretion. Creatinine 3.76 on admission and is 1.83 today. Baseline creatinine near 1. 2. Metabolic acidosis secondary to acute kidney injury, diarrhea and fluid loss through ileal loop urostomy. Additionally she is also on Topamax which will induce bicarb loss leading to acidosis. Improving. 3. Hyponatremia secondary to acute kidney injury. Better. 4. Benign hypertension. Controlled. 5. Status post urinary bladder removal with ileal conduit. 6. Hypokalemia secondary to intracellular shifting from IV bicarb. Magnesium normal. Plan: Discontinue bicarbonate drip. Add oral sodium bicarbonate. Start normal saline at 75 mL an hour. Replace potassium. 40 mEq today. Discontinued lisinopril. Repeat electrolytes in the morning.
[2019-04-22] MEDS: SODIUM CHLORIDE 0.9% 1,000 ML IV SCH (12:08)
[2019-04-22] MEDS: SODIUM BICARBONATE TAB 650 MG TAB PO SCH ×2 (12:08→21:43)
--- NOTE | 2019-04-22 15:20 | P.PN ---
Subjective Progress Note Date: 04/22/19 Principal diagnosis: Abdominal pain Patient doing better today. Her pain is improved. She did move her bowels. They were loose. No nausea or vomiting. Tolerating full liquids. She would like more solid food now. Objective - Vital Signs Vital signs: Vital Signs Temp 98 F 04/22/19 11:18 Pulse 75 04/22/19 13:10 Resp 16 04/22/19 11:18 BP 132/76 04/22/19 11:18 Pulse Ox 98 04/22/19 11:18 Intake & Output 04/21/19 04/22/19 04/22/19 18:59 06:59 18:59 Intake Total 1600 1375 Balance 1600 1375 Intake: Intake, IV Titration 1000 1375 Amount Dextrose 5% in Water 1, 1000 1375 000 ml @ 125 mls/hr IV . Q9H12M [place] with Sodium Bicarb (1 Meq/ml) 150 ml Rx#:[id number] Oral 600 Other: Voiding Method Ileal Conduit (Right) Ileal Conduit (Right) Ileal Conduit (Right) # Voids 4 1 - Exam Abdomen: Soft, nondistended, nontender, ostomy functioning - Labs CBC & Chem 7: 04/20/19 10:57 04/22/19 06:56 Labs: Abnormal Lab Results - Last 24 Hours (Table) 04/22/19 Range/Units 06:56 Sodium 133 L (137-145) mmol/L Potassium 3.4 L (3.5-5.1) mmol/L Carbon Dioxide 19 L (22-30) mmol/L BUN 39 H (7-17) mg/dL Creatinine 1.83 H (0.52-1.04) mg/dL Glucose 114 H (74-99) mg/dL Calcium 8.2 L (8.4-10.2) mg/dL Microbiology - Last 24 Hours (Table) 04/20/19 15:01 Blood Culture - Preliminary Blood No Growth after 24 hours Assessment and Plan (1) Abdominal pain Narrative/Plan: Begin dysphagia diet. Ambulate. Suspect ileus rather than PSBO. I will be out of town after this evening. We'll sign off. Please reconsult service with any issues. Current Visit: Yes Status: Acute Code(s): R10.9 - UNSPECIFIED ABDOMINAL PAIN SNOMED Code(s): 48800096
[2019-04-22] MEDS: ENOXAPARIN 40 MG/0.4 ML SYRINGE SQ SCH (18:13)
[2019-04-23] MEDS: SODIUM CHLORIDE 0.9% 1,000 ML IV SCH ×2 (00:26→14:43)
[2019-04-23] MEDS: IPRATROPIUM 0.5 MG/2.5 ML NEBU INHALATION SCH ×4 (07:29→20:34)
[2019-04-23 07:53] LABS: Calcium 8.2 mg/dL (8.4-10.2); Potassium 3.7 mmol/L (3.5-5.1)
[2019-04-23] MEDS: TOPIRAMATE 100 MG TAB PO SCH ×4 (08:31→21:02)
[2019-04-23] MEDS: PROMETHAZINE 25 MG TAB PO SCH ×2 (08:31→20:26)
[2019-04-23] MEDS: DULoxetine HCL 60 MG CAPSULE.DR PO SCH (08:31)
[2019-04-23] MEDS: SODIUM BICARBONATE TAB 650 MG TAB PO SCH ×3 (08:31→21:03)
[2019-04-23] MEDS: carBAMazepine 200 MG TAB PO SCH ×2 (08:31→20:27)
[2019-04-23] MEDS: METOPROLOL TARTRATE 25 MG TAB PO SCH ×2 (08:31→20:26)
[2019-04-23] MEDS: busPIRone HCl 5 MG TAB PO SCH ×3 (08:31→21:03)
[2019-04-23] MEDS: FLUTICASONE 50MCG/SPRAY NASAL 16GM EA NOSTRIL SCH (08:31)
[2019-04-23] MEDS: LORATADINE 10 MG TAB PO SCH (08:31)
[2019-04-23] MEDS: HYDROcodone/APAP 10-325MG 1 EACH TAB PO PRN ×2 (09:22→17:43)
--- NOTE | 2019-04-23 11:02 | P.PN ---
Subjective Patient is seen in follow-up for acute kidney injury and metabolic acidosis. Renal function is improving. Bicarb is stable. She is currently maintained on normal saline. She is complaining of abdominal cramping and diarrhea. Oral intake is fair. Vital signs are stable. General: The patient appeared well nourished and normally developed. HEENT: Head exam is unremarkable. Neck is without jugular venous distension. LUNGS: Lungs are clear to auscultation and percussion. Breath sounds decreased. HEART: Rate and Rhythm are regular. First and second heart sounds normal. No murmurs, rubs or gallops. ABDOMEN: Abdominal exam reveals normal bowel sounds. Soft. Generalized tenderness. EXTREMITITES: No clubbing, cyanosis, or edema. Objective - Vital Signs Vital signs: Vital Signs Temp 97.6 F 04/23/19 05:00 Pulse 72 04/23/19 07:46 Resp 16 04/23/19 05:00 BP 90/60 04/23/19 05:00 Pulse Ox 98 04/23/19 05:00 Intake & Output 04/22/19 04/23/19 04/23/19 18:59 06:59 18:59 Intake Total 300 825 Output Total 600 Balance -300 825 Intake: Intake, IV Titration 300 825 Amount Sodium Chloride 0.9% 1, 300 825 000 ml @ 75 mls/hr IV . [id number] [facility] Rx#:[id number] Output: Urine 600 Other: Voiding Method Ileal Conduit (Right) Ileal Conduit (Right) # Voids 2 - Labs CBC & Chem 7: 04/20/19 10:57 04/23/19 06:59 Labs: Abnormal Lab Results - Last 24 Hours (Table) 04/23/19 Range/Units 06:59 Chloride 111 H (98-107) mmol/L Carbon Dioxide 18 L (22-30) mmol/L BUN 28 H (7-17) mg/dL Calcium 8.2 L (8.4-10.2) mg/dL Microbiology - Last 24 Hours (Table) 04/20/19 15:01 Blood Culture - Preliminary Blood No Growth after 48 hours Assessment and Plan Plan: Assessment: 1. Acute kidney injury mostly prerenal secondary to intravascular volume depletion from vomiting, diarrhea and further worsened with the use of lisinopril. She was also on Bactrim which will impair creatinine secretion. Creatinine 3.76 on admission and is 1.04 today. Baseline creatinine near 1. 2. Metabolic acidosis secondary to acute kidney injury, diarrhea and fluid loss through ileal loop urostomy. Additionally she is also on Topamax which will induce bicarb loss leading to acidosis. Improving. 3. Hyponatremia secondary to acute kidney injury. Better. 4. Benign hypertension. Controlled. 5. Status post urinary bladder removal with ileal conduit. 6. Hypokalemia secondary to intracellular shifting from IV bicarb. Magnesium normal. Better. Plan: Maintain normal saline at 75 mL an hour. Increase bicarb dose to 1300 mg 3 times a day. Discontinued lisinopril. Repeat electrolytes in the morning.
--- NOTE | 2019-04-23 11:16 | P.PN ---
Progress Note - Text Progress Note Date: 04/22/19 Chief Complaint: Weak and tired History of presenting complaint: This is a 58-year-old patient of Dr. Bolanos. Chronic stable medical conditions include hypertension, obesity with previous bariatric surgery, anxiety disorder, bipolar disorder, hypertension, chronic back pain,. Patient had repeated blood infection with UTI and a chronic Storey catheter for 2 years. Therefore patient underwent partial bladder resection on January 08, 2019 [facility]. urostomy was created. Subsequently bilateral kidney stents were removed. Patient presents feeling weak tired rundown very poor appetite. Tired lethargic. Low-grade fever. Barely eating. Decreased output through the urostomy bag. Found to be hypotensive in the ER. No bowel movement for 4 days. Normally has a bowel movement every day. Patient admitted with-acute kidney injury, prerenal and also being on Bactrim, probable ileus, acute metabolic encephalopathy from renal failure, acute UTI and acute metabolic acidosis from renal failure. Today-more alert. Did tolerate a full liquid diet. Wishing the diet to be advanced. Has been out of bed. Urostomy is working better. Urine color is lightened up Review of systems: Was done for constitutional, cardiovascular, GI, pulmonary. relevant finding as above Active Medications Hydrocodone Bitart/Acetaminophen ([place] 10) 1 each PO TID PRN PRN Reason: Moderate Pain Last Admin: 04/23/19 09:22 Dose: 1 each Documented by: Albuterol Sulfate (Ventolin Nebulized) 2.5 mg INHALATION RT-Q4H PRN PRN Reason: Shortness Of Breath Buspirone HCl (Buspar) 15 mg PO TID [facility] Last Admin: 04/23/19 08:31 Dose: 15 mg Documented by: Carbamazepine (Tegretol) 400 mg PO Q12HR [facility] Last Admin: 04/23/19 08:31 Dose: 400 mg Documented by: Clobetasol Propionate (Temovate) 1 applic TOPICAL DAILY PRN PRN Reason: Rash Dicyclomine HCl (Bentyl) 20 mg PO TID PRN PRN Reason: Stomach Pain Diphenoxylate HCl/Atropine (Lomotil) 1 each PO QID PRN PRN Reason: Diarrhea Duloxetine HCl (Cymbalta) 120 mg PO DAILY [facility] Last Admin: 04/23/19 08:31 Dose: 120 mg Documented by: Enoxaparin Sodium (Lovenox) 40 mg SQ DAILY@1800 [facility] Last Admin: 04/22/19 18:13 Dose: 40 mg Documented by: Fluticasone Propionate (Flonase Nasal [place]) 1 spray EA NOSTRIL DAILY [facility] Last Admin: 04/23/19 08:31 Dose: 1 spray Documented by: Sodium Chloride (Saline 0.9%) 1,000 mls @ 75 mls/hr IV .[id number] [facility] Last Admin: 04/23/19 00:26 Dose: 75 mls/hr Documented by: Ipratropium [place] (Atrovent Nebulized) 0.5 mg INHALATION RT-QID [facility] Last Admin: 04/23/19 10:56 Dose: 0.5 mg Documented by: Loratadine (Claritin) 10 mg PO DAILY [facility] Last Admin: 04/23/19 08:31 Dose: 10 mg Documented by: Lorazepam (Ativan) 0.5 mg IV Q6HR PRN PRN Reason: Anxiety Last Admin: 04/22/19 21:51 Dose: 0.5 mg Documented by: Metoprolol Tartrate (Lopressor) 25 mg PO BID [facility] Last Admin: 04/23/19 08:31 Dose: 25 mg Documented by: Naloxone HCl (Narcan) 0.2 mg IV Q2M PRN PRN Reason: Opioid Reversal Ondansetron HCl (Zofran) 4 mg IVP Q8HR PRN PRN Reason: Nausea And Vomiting Last Admin: 04/22/19 15:45 Dose: 4 mg Documented by: Promethazine HCl (Phenergan) 25 mg PO Q12HR [facility] Last Admin: 04/23/19 08:31 Dose: 25 mg Documented by: Sodium Bicarbonate (Sodium Bicarbonate Tab) 1,300 mg PO TID [facility] Sumatriptan Succinate (Imitrex) 100 mg PO DAILY PRN PRN Reason: Migraine Headache Last Admin: 04/22/19 15:46 Dose: 100 mg Documented by: Topiramate (Topamax) 100 mg PO QID [facility] Last Admin: 04/23/19 08:31 Dose: 100 mg Documented by: Physical examination: VITAL SIGNS: 98, 71, 18, 132/76, 98% on room air GENERAL: Laying in bed, for more awake EYES: Pupils equal. Conjunctiva normal. HEENT: External appearance of nose and ears normal, oral cavity grossly normal. NECK: JVD not raised; masses not palpable. HEART: First and second heart sounds are normal; no edema. LUNGS: Respiratory rate normal; clear to auscultation. ABDOMEN: Soft, nontender, liver spleen not palpable, no masses palpable, midline scar is present, urostomy bag PSYCH: AO three. Mood and affect normal NEUROLOGICAL: Cranial nerves grossly intact; no facial asymmetry, power and sensation grossly intact. LYMPHATICS: No lymph nodes palpable in the axilla and neck INVESTIGATIONS, reviewed in the clinical context: Potassium 3.4 bun 39 and creatinine 1.83 bicarbonate 19 Previous testing White count 9.4 hemoglobin 13.4 platelets 677 Sodium 135 potassium 5 bicarb 6 bun 43 crit was 3.76 Labs from 02/05/2019 showed a BUN [address] abdomen-possible ileus or partial obstructive pattern Assessment: -Severe AK I, likely prerenal from decreased oral intake and also patient being on Bactrim, improving significantly -Probable ileus, cannot rule out mechanical bowel obstruction less appears less likely. Abdomen otherwise is soft -Acute metabolic encephalopathy, probably from renal failure, improving -Acute UTI with infection of the urinary tract -Acute severe metabolic acidosis from renal failure, improving -Clinical dehydration -Essential hypertension -Bipolar disorder -Bladder surgery with ileal conduit Plan: Patient doing much better. More awake. That has been addressed. Repeat labs in the morning. Hopefully can be discharged tomorrow.
[2019-04-23] MEDS: ENOXAPARIN 40 MG/0.4 ML SYRINGE SQ SCH (17:41)
[2019-04-23 21:57] VITALS: RESP 16
[2019-04-24] MEDS: SODIUM CHLORIDE 0.9% 1,000 ML IV SCH (02:00)
[2019-04-24] MEDS: DULoxetine HCL 60 MG CAPSULE.DR PO SCH (07:05)
[2019-04-24] MEDS: LORATADINE 10 MG TAB PO SCH (07:06)
[2019-04-24] MEDS: SODIUM BICARBONATE TAB 650 MG TAB PO SCH (07:06)
[2019-04-24] MEDS: carBAMazepine 200 MG TAB PO SCH (07:06)
[2019-04-24] MEDS: TOPIRAMATE 100 MG TAB PO SCH ×2 (07:06→12:43)
[2019-04-24] MEDS: PROMETHAZINE 25 MG TAB PO SCH (07:07)
[2019-04-24] MEDS: METOPROLOL TARTRATE 25 MG TAB PO SCH (07:07)
[2019-04-24] MEDS: FLUTICASONE 50MCG/SPRAY NASAL 16GM EA NOSTRIL SCH (07:07)
[2019-04-24] MEDS: busPIRone HCl 5 MG TAB PO SCH (07:12)
[2019-04-24] MEDS: IPRATROPIUM 0.5 MG/2.5 ML NEBU INHALATION SCH ×2 (07:13→11:36)
[2019-04-24] MEDS: HYDROcodone/APAP 10-325MG 1 EACH TAB PO PRN (07:29)
[2019-04-24 08:00] LABS: African American GFR (CKD) >90 (>60 ml/min/1.73 sqM); Anion Gap 8 mmol/L; Blood Urea Nitrogen 21 mg/dL (7-17); Calcium 8.3 mg/dL (8.4-10.2); Carbon Dioxide 18 mmol/L (22-30); Chloride 114 mmol/L (98-107); Glucose 92 mg/dL (74-99); Magnesium 1.7 mg/dL (1.6-2.3); Non-African American GFR(CKD) 84 (>60 ml/min/1.73 sqM); Potassium 3.6 mmol/L (3.5-5.1); Sodium 140 mmol/L (137-145)
--- NOTE | 2019-04-24 12:16 | P.PN ---
Subjective Principal diagnosis: Acute kidney injury Probable ileus Acute metabolic encephalopathy Acute UTI Acute metabolic acidosis from renal failure. 58-year-old patient of Dr. Bolanos. Chronic stable medical conditions include hypertension, obesity with previous bariatric surgery, anxiety disorder, bipolar disorder, hypertension, chronic back pain,. Patient had repeated blood infection with UTI and a chronic Storey catheter for 2 years. Therefore patient underwent partial bladder resection on January 08, 2019 [facility]. urostomy was created. Subsequently bilateral kidney stents were removed. Patient presents feeling weak tired rundown very poor appetite. Tired lethargic. Low-grade fever. Barely eating. Decreased output through the urostomy bag. Found to be hypotensive in the ER. No bowel movement for 4 days. Normally has a bowel movement every day. Patient admitted with-acute kidney injury, prerenal and also being on Bactrim, probable ileus, acute metabolic encephalopathy from renal failure, acute UTI and acute metabolic acidosis from renal failure. Objective - Vital Signs Vital signs: Vital Signs Temp 97.5 F L 04/23/19 12:34 Pulse 68 04/23/19 17:11 Resp 18 04/23/19 12:34 BP 105/71 04/23/19 12:34 Pulse Ox 98 04/23/19 12:34 Intake & Output 04/23/19 04/23/19 04/24/19 06:59 18:59 06:59 Intake Total 825 600 Balance 825 600 Intake: Intake, IV Titration 825 600 Amount Sodium Chloride 0.9% 1, 825 600 000 ml @ 75 mls/hr IV . [id number] [facility] Rx#:[id number] Other: Voiding Method Ileal Conduit (Right) Ileal Conduit (Right) # Voids 2 - Exam - Constitutional General appearance: Present: average body habitus, cooperative, no acute distress - EENT Eyes: Present: anicteric sclerae, EOMI, PERRLA, normal appearance ENT: Present: hearing grossly normal, normal oropharynx Ears: bilateral: normal - Neck Neck: Present: normal ROM. Absent: lymphadenopathy, rigidity, thyromegaly Carotids: negative: bruit present Thyroid: bilateral: normal size, negative: enlarged, nodule - Respiratory Respiratory: bilateral: CTA, negative: rales, rhonchi, wheezing - Cardiovascular Rhythm: regular Heart sounds: normal: S1, S2 Abnormal Heart Sounds: Absent: systolic murmur, diastolic murmur - Gastrointestinal General gastrointestinal: Present: normal bowel sounds, soft. Absent: distended, organomegaly, tenderness - Genitourinary Genitourinary Comment(s): deferred - Integumentary Integumentary: Present: normal turgor. Absent: jaundiced, rash, ulcer - Neurologic Neurologic: Present: CNII-XII intact. Absent: focal deficits - Musculoskeletal Musculoskeletal: Present: gait normal, strength equal bilaterally - Psychiatric Psychiatric: Present: A&O x's 3, appropriate affect, intact judgment & insight - Labs CBC & Chem 7: 04/20/19 10:57 04/24/19 07:13 Labs: Abnormal Lab Results - Last 24 Hours (Table) 04/23/19 Range/Units 06:59 Chloride 111 H (98-107) mmol/L Carbon Dioxide 18 L (22-30) mmol/L BUN 28 H (7-17) mg/dL Calcium 8.2 L (8.4-10.2) mg/dL Microbiology - Last 24 Hours (Table) 04/20/19 15:01 Blood Culture - Preliminary Blood No Growth after 72 hours Assessment and Plan Assessment: -Severe AK I, likely prerenal from decreased oral intake and also patient being on Bactrim, improving significantly -Probable ileus, cannot rule out mechanical bowel obstruction less appears less likely. Abdomen otherwise is soft -Acute metabolic encephalopathy, probably from renal failure, improving -Acute UTI with infection of the urinary tract -Acute severe metabolic acidosis from renal failure, improving -Clinical dehydration -Essential hypertension -Bipolar disorder -Bladder surgery with ileal conduit Patient has shown marked clinical improvement; I will plan to continue current management and monitor blood work closely with possible discharge in next 24 hours if remains stable
[2019-04-24 12:17] VITALS: BP 113/75; PULSE 74; TEMP 97.8
== END 2019-04-24 14:24 | disposition home or self-care (01) | DRG 682 ==
LOC: EC 10:18 → 5NMEDONC 13:52
PROVIDERS: ADMIT Hospitalist; ATTEND Hospitalist
DX: N17.9 Acute kidney failure, unspecified (principal); G93.41 Metabolic encephalopathy; E87.1 Hypo-osmolality and hyponatremia; E87.2 Acidosis; N39.0 Urinary tract infection, site not specified; K56.7 Ileus, unspecified; E86.0 Dehydration; E87.6 Hypokalemia; F31.9 Bipolar disorder, unspecified; F41.1 Generalized anxiety disorder; I10 Essential (primary) hypertension; Z79.899 Other long term (current) drug therapy; Z87.440 Personal history of urinary (tract) infections; Z87.891 Personal history of nicotine dependence; Z90.710 Acquired absence of both cervix and uterus; Z93.6 Other artificial openings of urinary tract status; Z98.84 Bariatric surgery status; Z98.51 Tubal ligation status; Z90.49 Acquired absence of other specified parts of digestive tract; Z98.890 Other specified postprocedural states
CPT/HCPCS: 36415; 74176; 76705; 80048; 80053; 81001; 82803; 83605; 83735; 85025; 87040; 93005; 94640; 94760; 96361; 96374; 96375; 99285

== ENCOUNTER 2019-06-10 10:47 | Emergency (ER) | payer MEDICARE, OTHER ==
[2019-06-10 11:04] VITALS: RESP 18; TEMP 98.1
[2019-06-10] MEDS ORDERED: MORPHINE SULFATE 4 MG/ML SYRINGE IV STA (11:23)
[2019-06-10] MEDS ORDERED: SODIUM CHLORIDE 0.9% 500 ML 500 ML IV STA (11:23)
[2019-06-10] MEDS ORDERED: SODIUM CHLORIDE 0.9% 1,000 ML IV STA (11:23)
[2019-06-10] MEDS ORDERED: ONDANSETRON 4 MG/2 ML VIAL IVP STA (11:23)
[2019-06-10 11:55] LABS: Anisocytosis Slight; Basophils % (A) 1 %; Eosinophils # (A) 0.1 k/uL (0-0.7); Eosinophils % (A) 3 %; HCT 41.2 % (34.0-46.0); HGB 13.1 gm/dL (11.4-16.0); Hypochromasia Slight; Lymphocytes # (A) 0.6 k/uL (1.0-4.8); Lymphocytes % (A) 15 %; MCH 30.6 pg (25.0-35.0); MCHC 31.8 g/dL (31.0-37.0); MCV 96.2 fL (80.0-100.0); Macrocytosis Slight; Mean Platelet Volume 6.8; Monocytes # (A) 0.3 k/uL (0-1.0); Monocytes % (A) 8 %; Neutrophils # (A) 2.9 k/uL (1.3-7.7); Neutrophils % (A) 72 %; Platelet Count 546 k/uL (150-450); RBC 4.28 m/uL (3.80-5.40); RDW 17.1 % (11.5-15.5)
[2019-06-10 12:08] LABS: Albumin 4.8 g/dL (3.5-5.0); Calcium 9.7 mg/dL (8.4-10.2); Potassium 3.9 mmol/L (3.5-5.1); Total Bilirubin 0.3 mg/dL (0.2-1.3); Total Protein 8.1 g/dL (6.3-8.2)
--- NOTE | 2019-06-10 12:08 | XR ---
EXAMINATION TYPE: XR chest 2V DATE OF EXAM: 06/10/2019 COMPARISON: 02/02/2019 TECHNIQUE: PA and lateral views submitted. HISTORY: Shortness of breath FINDINGS: The lungs are clear and there is no pneumothorax, pleural effusion, or focal pneumonia. Stimulator device overlying the thoracic spine. No overt failure. Hyperinflation of the lungs. I curvature the s pine. Vague nodule right lung apex measuring 1 cm. Hypertrophic and degenerative change of the spine. Surgical clips in the abdomen. IMPRESSION: 1. No acute process. Vague nodule right lung apex measuring 1 cm. Recommend apical lordotic view of t he chest. 2. Correlate for COPD
[2019-06-10 12:22] LABS: Amorphous Sediment,Urine Rare /hpf; Appearance,Urine Cloudy (Clear); Bacteria,Urine Rare /hpf; Bilirubin,Urine Negative (Negative); Blood,Urine Negative (Negative); Color,Urine Yellow; Glucose,Urine (UA) Negative (Negative); Hyaline Casts,Urine 1 /lpf (0-2); Ketones,Urine Negative (Negative); Leukocyte Esterase,Urine Small (Negative); Nitrite,Urine Negative (Negative); Protein,Urine Trace (Negative); RBC,Urine 1 /hpf (0-5); Specific Gravity,Urine 1.011 (1.001-1.035); Urobilinogen,Urine <2.0 mg/dL (<2.0); WBC,Urine 5 /hpf (0-5)
--- NOTE | 2019-06-10 12:44 | ED ---
General Adult HPI - General Chief complaint: Nausea/Vomiting/Diarrhea Stated complaint: SOB, back pain Time Seen by Provider: 06/10/19 11:06 Source: patient, RN notes reviewed Mode of arrival: ambulatory Limitations: no limitations - History of Present Illness Initial comments: This a 58-year-old female presents emergency Department chief complaint nausea vomiting. Patient states that she feels that she is dehydrated, and renal failure again. Patient had 2 bouts of renal failure related to her urinary stoma. Patient states that she's had hospitalizations for hydration. Patient denies any fevers or chills. She states she has had intermittent right flank pain no chest pain. She has ongoing shortness of breath which has been evaluated extensively states has not worsened usual. She has no exertional symptoms. Patient denies any leg pain, leg swelling. - Related Data Home Medications Medication Instructions Recorded Confirmed Albuterol Inhaler [Ventolin Hfa 2 puff INHALATION RT-Q4H PRN 03/21/16 04/20/19 Inhaler] DULoxetine HCL [Cymbalta] 120 mg PO DAILY 03/21/16 04/20/19 HYDROcodone/APAP 10-325MG [[place] 1 tab PO TID PRN 03/21/16 04/20/19 10-325] SUMAtriptan SUCCINATE [Imitrex] 100 mg PO DAILY PRN 03/21/16 04/20/19 carBAMazepine [TEGretol] 400 mg PO Q12H 03/21/16 04/20/19 Lisinopril [Zestril] 40 mg PO HS 02/02/19 04/20/19 Metoprolol Tartrate 25 mg PO BID 02/02/19 04/20/19 busPIRone HCL 15 mg PO TID 02/02/19 04/20/19 ALPRAZolam [Xanax] 1 mg PO QID PRN 04/20/19 04/20/19 Cetirizine HCl [Zyrtec] 10 mg PO DAILY 04/20/19 04/20/19 Clobetasol Propionate [Temovate 1 applic TOPICAL DAILY PRN 04/20/19 04/20/19 0.05% Cream] Dicyclomine HCl 20 mg PO TID PRN 04/20/19 04/20/19 Diphenoxylate HCl/Atropine 1 tab PO QID PRN 04/20/19 04/20/19 [Lomotil 2.5-0.025 mg Tablet] Fluticasone Nasal [place] [Flonase 1 spray EA NOSTRIL DAILY 04/20/19 04/20/19 Nasal [place]] Promethazine HCl 25 mg PO Q12H 04/20/19 04/20/19 Tiotropium [place] [Spiriva] 1 cap INHALATION RT-DAILY 04/20/19 04/20/19 Topiramate [Topamax] 100 mg PO QID 04/20/19 04/20/19 Previous Rx's Medication Instructions Recorded Sodium Bicarbonate Tab 1,300 mg PO TID #30 tab 04/24/19 Ondansetron Odt [Zofran Odt] 4 mg PO Q8HR PRN #14 tab 06/10/19 Allergies Allergy/AdvReac Type Severity Reaction Status Date / Time No Known Allergies Allergy Verified 06/10/19 11:04 Review of Systems ROS Statement: Those systems with pertinent positive or pertinent negative responses have been documented in the HPI. ROS Other: All systems not noted in ROS Statement are negative. Past Medical History Past Medical History: Blood Disorder, Hypertension Additional Past Medical History / Comment(s): past Obesity with previous bariatric surgery, fluctuating body weight, endometreosis,general anxiety disor tk, bipolar disorder, hypertension, chronic back pain, history of iron deficiency,"low rbc's" history of anemia requiring blood transfusions, uti,falls and in may with fall had fx to lt hip but no sx, dizzy spells, chronic samuel cath- bladder only holds 100 ml's. pt stated it was changed today 10-20-17 History of Any Multi-Drug Resistant Organisms: None Reported Past Surgical History: Appendectomy, Bariatric Surgery, Bladder Surgery, Section, Cholecystectomy, Hysterectomy, Tubal Ligation Additional Past Surgical History / Comment(s): bladder suspension, gastric bypass, colon volvulus had exporatory lap w/lysis of adhesions and rt colectomy Past Anesthesia/Blood Transfusion Reactions: No Reported Reaction Additional Past Anesthesia/Blood Transfusion Reaction / Comment(s): blood trandfusion- no reaction Past Psychological History: Anxiety, Bipolar, Depression Smoking Status: Former smoker Past Alcohol Use History: None Reported Past Drug Use History: None Reported - Past Family History Mother Family Medical History: No Reported History Additional Family Medical History / Comment(s): no history Father Family Medical History: No Reported History Additional Family Medical History / Comment(s): from alcoholism General Exam Limitations: no limitations General appearance: alert, in no apparent distress Head exam: Present: atraumatic, normocephalic, normal inspection Eye exam: Present: normal appearance, PERRL, EOMI. Absent: scleral icterus, conjunctival injection, periorbital swelling ENT exam: Present: normal exam, normal oropharynx, mucous membranes moist, TM's normal bilaterally Neck exam: Present: normal inspection, full ROM. Absent: tenderness, meningismus, lymphadenopathy Respiratory exam: Present: normal lung sounds bilaterally. Absent: respiratory distress, wheezes, rales, rhonchi, stridor Cardiovascular Exam: Present: normal rhythm, tachycardia, normal heart sounds. Absent: systolic murmur, diastolic murmur, rubs, gallop, clicks GI/Abdominal exam: Present: soft, tenderness (Mild right upper), normal bowel sounds. Absent: distended, guarding, rebound, rigid Back exam: Present: CVA tenderness (R). Absent: CVA tenderness (L) Neurological exam: Present: alert, oriented X3, CN II-XII intact Skin exam: Present: warm, dry, intact, normal color. Absent: rash Course Vital Signs 06/10/19 06/10/19 06/10/19 11:01 12:00 12:52 Temperature 98.1 F Pulse Rate 120 H 103 H 111 H Respiratory 18 18 18 Rate Blood Pressure 125/88 143/111 160/110 O2 Sat by Pulse 98 97 97 Oximetry Medical Decision Making - Medical Decision Making 4-year-old female presented emergency from for right flank pain, nausea vomiting up feeling well. She has no complaints of chest pain or shortness breath at this time. She was concerned that she was in renal failure as she's had recurrent symptoms of this. Patient was hydrated given antiemetics she feels greatly improved. Patient we discharged stable condition return parameters were discussed. - Lab Data Result diagrams: 06/10/19 11:30 06/10/19 11:30 Lab Results 06/10/19 06/10/19 06/10/19 Range/Units 11:30 11:30 11:30 WBC 4.0 (3.8-10.6) k/uL RBC 4.28 (3.80-5.40) m/uL Hgb 13.1 (11.4-16.0) gm/dL Hct 41.2 (34.0-46.0) % MCV 96.2 (80.0-100.0) fL MCH 30.6 (25.0-35.0) pg MCHC 31.8 (31.0-37.0) g/dL RDW 17.1 H (11.5-15.5) % Plt Count 546 H (150-450) k/uL Neutrophils % 72 % Lymphocytes % 15 % Monocytes % 8 % Eosinophils % 3 % Basophils % 1 % Neutrophils # 2.9 (1.3-7.7) k/uL Lymphocytes # 0.6 L (1.0-4.8) k/uL Monocytes # 0.3 (0-1.0) k/uL Eosinophils # 0.1 (0-0.7) k/uL Basophils # 0.0 (0-0.2) k/uL Hypochromasia Slight Anisocytosis Slight Macrocytosis Slight Sodium 132 L (137-145) mmol/L Potassium 3.9 (3.5-5.1) mmol/L Chloride 97 L (98-107) mmol/L Carbon Dioxide 24 (22-30) mmol/L Anion Gap 11 mmol/L BUN 9 (7-17) mg/dL Creatinine 1.01 (0.52-1.04) mg/dL Est GFR (CKD-EPI)AfAm 70 (>60 ml/min/1.73 sqM) Est GFR (CKD-EPI)NonAf 61 (>60 ml/min/1.73 sqM) Glucose 116 H (74-99) mg/dL Plasma Lactic Acid [place] (0.7-2.0) mmol/L Calcium 9.7 (8.4-10.2) mg/dL Total Bilirubin 0.3 (0.2-1.3) mg/dL AST 22 (14-36) U/L ALT 15 (4-34) U/L Alkaline Phosphatase 135 H (38-126) U/L Troponin I (0.000-0.034) ng/mL Total Protein 8.1 (6.3-8.2) g/dL Albumin 4.8 (3.5-5.0) g/dL Amylase 165 H (30-110) U/L Lipase 257 (23-300) U/L Urine Color Yellow Urine Appearance Cloudy H (Clear) Urine pH 7.0 (5.0-8.0) Ur Specific [place] 1.011 (1.001-1.035) Urine Protein Trace H (Negative) Urine Glucose (UA) Negative (Negative) Urine Ketones Negative (Negative) Urine Blood Negative (Negative) Urine Nitrite Negative (Negative) Urine Bilirubin Negative (Negative) Urine Urobilinogen <2.0 (<2.0) mg/dL Ur Leukocyte Esterase Small H (Negative) Urine RBC 1 (0-5) /hpf Urine WBC 5 (0-5) /hpf Amorphous Sediment Rare H (None) /hpf Urine Bacteria Rare H (None) /hpf Hyaline Casts 1 (0-2) /lpf 06/10/19 06/10/19 Range/Units 11:30 11:30 WBC (3.8-10.6) k/uL RBC (3.80-5.40) m/uL Hgb (11.4-16.0) gm/dL Hct (34.0-46.0) % MCV (80.0-100.0) fL MCH (25.0-35.0) pg MCHC (31.0-37.0) g/dL RDW (11.5-15.5) % Plt Count (150-450) k/uL Neutrophils % % Lymphocytes % % Monocytes % % Eosinophils % % Basophils % % Neutrophils # (1.3-7.7) k/uL Lymphocytes # (1.0-4.8) k/uL Monocytes # (0-1.0) k/uL Eosinophils # (0-0.7) k/uL Basophils # (0-0.2) k/uL Hypochromasia Anisocytosis Macrocytosis Sodium (137-145) mmol/L Potassium (3.5-5.1) mmol/L Chloride (98-107) mmol/L Carbon Dioxide (22-30) mmol/L Anion Gap mmol/L BUN (7-17) mg/dL Creatinine (0.52-1.04) mg/dL Est GFR (CKD-EPI)AfAm (>60 ml/min/1.73 sqM) Est GFR (CKD-EPI)NonAf (>60 ml/min/1.73 sqM) Glucose (74-99) mg/dL Plasma Lactic Acid [place] 1.8 (0.7-2.0) mmol/L Calcium (8.4-10.2) mg/dL Total Bilirubin (0.2-1.3) mg/dL AST (14-36) U/L ALT (4-34) U/L Alkaline Phosphatase (38-126) U/L Troponin I <0.012 (0.000-0.034) ng/mL Total Protein (6.3-8.2) g/dL Albumin (3.5-5.0) g/dL Amylase (30-110) U/L Lipase (23-300) U/L Urine Color Urine Appearance (Clear) Urine pH (5.0-8.0) Ur Specific [place] (1.001-1.035) Urine Protein (Negative) Urine Glucose (UA) (Negative) Urine Ketones (Negative) Urine Blood (Negative) Urine Nitrite (Negative) Urine Bilirubin (Negative) Urine Urobilinogen (<2.0) mg/dL Ur Leukocyte Esterase (Negative) Urine RBC (0-5) /hpf Urine WBC (0-5) /hpf Amorphous Sediment (None) /hpf Urine Bacteria (None) /hpf Hyaline Casts (0-2) /lpf Disposition Clinical Impression: Nausea & vomiting, Abdominal pain Disposition: HOME SELF-CARE Condition: Stable Instructions (If sedation given, give patient instructions): Acute Nausea and Vomiting (ED) Additional Instructions: Please return to the Emergency Department if symptoms worsen or any other concerns. Prescriptions: Ondansetron Odt [Zofran Odt] 4 mg PO Q8HR PRN #14 tab PRN Reason: Nausea Is patient prescribed a controlled substance at d/c from ED?: No Referrals: Brenden Bolanos MD [Primary Care Provider] - 1-2 days Time of Disposition: 13:37
[2019-06-10 13:54] VITALS: BP 156/106; PULSE 110
== END 2019-06-10 13:51 | disposition home or self-care (01) ==
LOC: EC 10:47
DX: R11.2 Nausea with vomiting, unspecified (principal); R10.9 Unspecified abdominal pain; F41.9 Anxiety disorder, unspecified; F31.9 Bipolar disorder, unspecified; I10 Essential (primary) hypertension; G89.29 Other chronic pain; M54.9 Dorsalgia, unspecified; D64.9 Anemia, unspecified; Z79.899 Other long term (current) drug therapy; Z90.49 Acquired absence of other specified parts of digestive tract; Z98.84 Bariatric surgery status; Z87.19 Personal history of other diseases of the digestive system; Z87.891 Personal history of nicotine dependence
CPT/HCPCS: 36415; 93005; 80053; 82150; 83605; 83690; 84484; 85025; 81001; 71046; 96374; 96375; 96361 ×2; 99285; J2270; J2405

== ENCOUNTER 2019-08-04 11:51 | Inpatient (IN) | payer MEDICARE, OTHER ==
[2019-08-04] MEDS ORDERED: ONDANSETRON 4 MG/2 ML VIAL IVP STA (12:08)
[2019-08-04] MEDS ORDERED: HYDROmorphone 1 MG/ML 1 ML SYRINGE IVP STA (12:08)
[2019-08-04] MEDS ORDERED: SODIUM CHLORIDE 0.9% 1,000 ML IV STA ×2 (12:08)
[2019-08-04] MEDS ORDERED: IOPAMIDOL CONTRAST (ORAL USE) VIAL PO PRN (12:08)
[2019-08-04] MEDS ORDERED: FAMOTIDINE 20 MG/2 ML VIAL IV STA (12:09)
--- NOTE | 2019-08-04 12:12 | ED ---
General Adult HPI - General Stated complaint: Nausea Vomiting Time Seen by Provider: 08/04/19 11:52 Source: patient, RN notes reviewed Mode of arrival: EMS Limitations: no limitations - History of Present Illness Initial comments: Patient is a pleasant 58-year-old female presenting to the emergency Department with complaints of nausea and vomiting and dry heaves. Patient states symptoms have been occurring for the past 6 days. Patient does have history of similar symptoms previously. Patient does have urostomy and gets discomfort in this area with associated dry heaves. Patient is unclear why. No constipation or diarrhea. No fevers. - Related Data Home Medications Medication Instructions Recorded Confirmed Albuterol Inhaler (Mhu) [Ventolin 2 puff INHALATION RT-Q4H PRN 03/21/16 04/20/19 Hfa Inhaler (Mhu)] DULoxetine HCL [Cymbalta] 120 mg PO DAILY 03/21/16 04/20/19 HYDROcodone/APAP 10-325MG [[place] 1 tab PO TID PRN 03/21/16 04/20/19 10-325] SUMAtriptan SUCCINATE [Imitrex] 100 mg PO DAILY PRN 03/21/16 04/20/19 carBAMazepine [TEGretol] 400 mg PO Q12H 03/21/16 04/20/19 Lisinopril [Zestril] 40 mg PO HS 02/02/19 04/20/19 Metoprolol Tartrate 25 mg PO BID 02/02/19 04/20/19 busPIRone HCL 15 mg PO TID 02/02/19 04/20/19 ALPRAZolam [Xanax] 1 mg PO QID PRN 04/20/19 04/20/19 Cetirizine HCl [Zyrtec] 10 mg PO DAILY 04/20/19 04/20/19 Clobetasol Propionate [Temovate 1 applic TOPICAL DAILY PRN 04/20/19 04/20/19 0.05% Cream] Dicyclomine HCl 20 mg PO TID PRN 04/20/19 04/20/19 Diphenoxylate HCl/Atropine 1 tab PO QID PRN 04/20/19 04/20/19 [Lomotil 2.5-0.025 mg Tablet] Fluticasone Nasal [place] [Flonase 1 spray EA NOSTRIL DAILY 04/20/19 04/20/19 Nasal [place]] Promethazine HCl 25 mg PO Q12H 04/20/19 04/20/19 Tiotropium [place] [Spiriva] 1 cap INHALATION RT-DAILY 04/20/19 04/20/19 Topiramate [Topamax] 100 mg PO QID 04/20/19 04/20/19 Previous Rx's Medication Instructions Recorded Sodium Bicarbonate Tab 1,300 mg PO TID #30 tab 04/24/19 Ondansetron Odt [Zofran Odt] 4 mg PO Q8HR PRN #14 tab 06/10/19 Allergies Allergy/AdvReac Type Severity Reaction Status Date / Time No Known Allergies Allergy Verified 06/10/19 11:04 Review of Systems ROS Statement: Those systems with pertinent positive or pertinent negative responses have been documented in the HPI. ROS Other: All systems not noted in ROS Statement are negative. Constitutional: Denies: fever Eyes: Denies: eye pain ENT: Denies: ear pain Respiratory: Denies: dyspnea Cardiovascular: Denies: chest pain Endocrine: Denies: fatigue Gastrointestinal: Reports: abdominal pain, nausea, vomiting Genitourinary: Denies: dysuria Musculoskeletal: Denies: arthralgia Skin: Denies: rash Neurological: Denies: weakness Past Medical History Past Medical History: Blood Disorder, Hypertension Additional Past Medical History / Comment(s): past Obesity with previous bariatric surgery, fluctuating body weight, endometreosis,general anxiety disorder, bipolar disorder, hypertension, chronic back pain, history of iron deficiency,"low rbc's" history of anemia requiring blood transfusions, uti,falls and in may with fall had fx to lt hip but no sx, dizzy spells, chronic samuel cath- bladder only holds 100 ml's. pt stated it was changed today 10-20-17 History of Any Multi-Drug Resistant Organisms: None Reported Past Surgical History: Appendectomy, Bariatric Surgery, Bladder Surgery, Section, Cholecystectomy, Hysterectomy, Tubal Ligation Additional Past Surgical History / Comment(s): bladder suspension, gastric bypass, colon volvulus had exporatory lap w/lysis of adhesions and rt colectomy Past Anesthesia/Blood Transfusion Reactions: No Reported Reaction Additional Past Anesthesia/Blood Transfusion Reaction / Comment(s): blood trandfusion- no reaction Past Psychological History: Anxiety, Bipolar, Depression Smoking Status: Former smoker Past Alcohol Use History: None Reported Past Drug Use History: None Reported - Past Family History Mother Family Medical History: No Reported History Additional Family Medical History / Comment(s): no history Father Family Medical History: No Reported History Additional Family Medical History / Comment(s): from alcoholism General Exam Limitations: no limitations General appearance: alert, in no apparent distress Eye exam: Present: normal appearance, PERRL ENT exam: Present: normal oropharynx Neck exam: Present: normal inspection Respiratory exam: Present: normal lung sounds bilaterally Cardiovascular Exam: Present: regular rate, normal rhythm Expanded Peripheral pulses: 2+: Posterior Tibialis (R), Posterior Tibialis (L) GI/Abdominal exam: Present: soft, tenderness (Moderate, more so in the epigastric and right side), normal bowel sounds, other (Urostomy is present). Absent: distended, guarding, rebound, rigid, pulsatile mass Extremities exam: Present: normal inspection Neurological exam: Present: alert Psychiatric exam: Present: normal affect, normal mood Skin exam: Present: normal color Course Vital Signs 08/04/19 08/04/19 08/04/19 11:56 12:00 12:11 Temperature 98.3 F Pulse Rate 79 80 Respiratory 26 H 16 Rate Blood Pressure 162/113 172/103 O2 Sat by Pulse 100 100 98 Oximetry 08/04/19 08/04/19 08/04/19 12:30 13:00 13:30 Temperature Pulse Rate 73 84 84 Respiratory 17 14 14 Rate Blood Pressure 166/110 160/110 O2 Sat by Pulse 100 100 99 Oximetry EKG Findings - EKG Comments: EKG Findings:: Normal sinus rhythm 78. NH 126. QRS 92. QT 426. QTc 45. Left axis. Septal Q waves. No acute ST change. Medical Decision Making - Medical Decision Making Patient evaluated and resting comfortably in bed. Patient updated on results and plan. Patient states she does have history of pancreatitis once previously. Patient states she does not drink alcohol. Patient states she has had previous cholecystectomy. - Lab Data Result diagrams: 08/04/19 12:05 08/04/19 12:05 Lab Results 08/04/19 08/04/19 08/04/19 Range/Units 12:05 12:05 12:05 WBC 5.8 (3.8-10.6) k/uL RBC 4.69 (3.80-5.40) m/uL Hgb 14.2 (11.4-16.0) gm/dL Hct 46.0 (34.0-46.0) % MCV 97.9 (80.0-100.0) fL MCH 30.2 (25.0-35.0) pg MCHC 30.8 L (31.0-37.0) g/dL RDW 16.5 H (11.5-15.5) % Plt Count 551 H (150-450) k/uL Neutrophils % 88 % Lymphocytes % 6 % Monocytes % 4 % Eosinophils % 0 % Basophils % 0 % Neutrophils # 5.1 (1.3-7.7) k/uL Lymphocytes # 0.4 L (1.0-4.8) k/uL Monocytes # 0.3 (0-1.0) k/uL Eosinophils # 0.0 (0-0.7) k/uL Basophils # 0.0 (0-0.2) k/uL Hypochromasia Slight Anisocytosis Slight Macrocytosis Slight PT 9.5 (9.0-12.0) sec INR 0.9 (<1.2) APTT 20.8 L (22.0-30.0) sec Sodium (137-145) mmol/L Potassium (3.5-5.1) mmol/L Chloride (98-107) mmol/L Carbon Dioxide (22-30) mmol/L Anion Gap mmol/L BUN (7-17) mg/dL Creatinine (0.52-1.04) mg/dL Est GFR (CKD-EPI)AfAm (>60 ml/min/1.73 sqM) Est GFR (CKD-EPI)NonAf (>60 ml/min/1.73 sqM) Glucose (74-99) mg/dL Calcium (8.4-10.2) mg/dL Total Bilirubin (0.2-1.3) mg/dL AST (14-36) U/L ALT (4-34) U/L Alkaline Phosphatase (38-126) U/L Total Protein (6.3-8.2) g/dL Albumin (3.5-5.0) g/dL Amylase (30-110) U/L Lipase (23-300) U/L Urine Color Yellow Urine Appearance Turbid H (Clear) Urine pH 7.0 (5.0-8.0) Ur Specific [place] 1.014 (1.001-1.035) Urine Protein 1+ H (Negative) Urine Glucose (UA) Negative (Negative) Urine Ketones Negative (Negative) Urine Blood Small H (Negative) Urine Nitrite Negative (Negative) Urine Bilirubin Negative (Negative) Urine Urobilinogen <2.0 (<2.0) mg/dL Ur Leukocyte Esterase Negative (Negative) Urine RBC 3 (0-5) /hpf Urine WBC 5 (0-5) /hpf Ur Squamous Epith Cells <1 (0-4) /hpf Amorphous Sediment Rare H (None) /hpf Urine Bacteria Occasional H (None) /hpf Urine Mucus Rare H (None) /hpf 08/04/19 Range/Units 12:05 WBC (3.8-10.6) k/uL RBC (3.80-5.40) m/uL Hgb (11.4-16.0) gm/dL Hct (34.0-46.0) % MCV (80.0-100.0) fL MCH (25.0-35.0) pg MCHC (31.0-37.0) g/dL RDW (11.5-15.5) % Plt Count (150-450) k/uL Neutrophils % % Lymphocytes % % Monocytes % % Eosinophils % % Basophils % % Neutrophils # (1.3-7.7) k/uL Lymphocytes # (1.0-4.8) k/uL Monocytes # (0-1.0) k/uL Eosinophils # (0-0.7) k/uL Basophils # (0-0.2) k/uL Hypochromasia Anisocytosis Macrocytosis PT (9.0-12.0) sec INR (<1.2) APTT (22.0-30.0) sec Sodium 132 L (137-145) mmol/L Potassium 3.8 (3.5-5.1) mmol/L Chloride 106 (98-107) mmol/L Carbon Dioxide 13 L (22-30) mmol/L Anion Gap 13 mmol/L BUN 15 (7-17) mg/dL Creatinine 1.10 H (0.52-1.04) mg/dL Est GFR (CKD-EPI)AfAm 63 (>60 ml/min/1.73 sqM) Est GFR (CKD-EPI)NonAf 55 (>60 ml/min/1.73 sqM) Glucose 133 H (74-99) mg/dL Calcium 9.7 (8.4-10.2) mg/dL Total Bilirubin 0.4 (0.2-1.3) mg/dL AST 22 (14-36) U/L ALT 14 (4-34) U/L Alkaline Phosphatase 119 (38-126) U/L Total Protein 8.0 (6.3-8.2) g/dL Albumin 4.7 (3.5-5.0) g/dL Amylase 246 H (30-110) U/L Lipase 1325 H (23-300) U/L Urine Color Urine Appearance (Clear) Urine pH (5.0-8.0) Ur Specific [place] (1.001-1.035) Urine Protein (Negative) Urine Glucose (UA) (Negative) Urine Ketones (Negative) Urine Blood (Negative) Urine Nitrite (Negative) Urine Bilirubin (Negative) Urine Urobilinogen (<2.0) mg/dL Ur Leukocyte Esterase (Negative) Urine RBC (0-5) /hpf Urine WBC (0-5) /hpf Ur Squamous Epith Cells (0-4) /hpf Amorphous Sediment (None) /hpf Urine Bacteria (None) /hpf Urine Mucus (None) /hpf - Radiology Data Radiology results: report reviewed (Computed tomography scan of the abdomen pelvis does not show any acute abnormality.) Disposition Clinical Impression: Acute pancreatitis Disposition: ADMITTED IP TO THIS HOSP Is patient prescribed a controlled substance at d/c from ED?: No Referrals: Brenden Bolanos MD [Primary Care Provider] - 1-2 days Decision Time: 13:55
[2019-08-04 12:45] LABS: Anisocytosis Slight; Basophils % (A) 0 %; Eosinophils % (A) 0 %; HGB 14.2 gm/dL (11.4-16.0); Hypochromasia Slight; Lymphocytes # (A) 0.4 k/uL (1.0-4.8); Lymphocytes % (A) 6 %; MCH 30.2 pg (25.0-35.0); MCHC 30.8 g/dL (31.0-37.0); MCV 97.9 fL (80.0-100.0); Macrocytosis Slight; Mean Platelet Volume 6.8; Monocytes # (A) 0.3 k/uL (0-1.0); Monocytes % (A) 4 %; Neutrophils # (A) 5.1 k/uL (1.3-7.7); Neutrophils % (A) 88 %; Platelet Count 551 k/uL (150-450); RBC 4.69 m/uL (3.80-5.40); RDW 16.5 % (11.5-15.5); WBC 5.8 k/uL (3.8-10.6)
[2019-08-04 13:04] LABS: Amorphous Sediment,Urine Rare /hpf; Appearance,Urine Turbid (Clear); Bacteria,Urine Occasional /hpf; Bilirubin,Urine Negative (Negative); Blood,Urine Small (Negative); Color,Urine Yellow; Glucose,Urine (UA) Negative (Negative); Ketones,Urine Negative (Negative); Leukocyte Esterase,Urine Negative (Negative); Mucus,Urine Rare /hpf; Nitrite,Urine Negative (Negative); Protein,Urine 1+ (Negative); RBC,Urine 3 /hpf (0-5); Specific Gravity,Urine 1.014 (1.001-1.035); Squamous Epithelial Cell,Urine <1 /hpf (0-4); Urobilinogen,Urine <2.0 mg/dL (<2.0); WBC,Urine 5 /hpf (0-5)
[2019-08-04 13:10] LABS: INR 0.9 (<1.2); Prothrombin Time 9.5 sec (9.0-12.0)
[2019-08-04 13:13] LABS: Partial Thromboplastin Time 20.8 sec (22.0-30.0)
--- NOTE | 2019-08-04 13:31 | CT ---
EXAMINATION TYPE: CT abdomen pelvis w con DATE OF EXAM: 08/04/2019 HISTORY: Abdominal pain. CT DLP: 532.8mGycm Automated Exposure Control for Dose Reduction was Utilized. CONTRAST: CT scan of the abdomen and pelvis is performed without oral but with IV Contrast, patient injected wi th 100 mL of Isovue 300. COMPARISON: Prior CT April 20, 2019 and older CTs FINDINGS: LUNG BASES: Partial visualization of bilateral breast implants. LIVER/GB: Redemonstration of cholecystectomy clips. Redemonstration of mild to moderate central predo minating left intrahepatic biliary dilatation and mild extra hepatic biliary dilatation without obstr ucting mass or calculus. Right lobe hepatomegaly redemonstrated PANCREAS: No significant abnormality is seen. SPLEEN: No significant abnormality is seen. ADRENALS: No significant abnormality is seen. KIDNEYS: Cortical scarring lower pole of the right kidney redemonstrated. Symmetric cortical medullar y uptake and excretion with persistent mild right-sided hydronephrosis. Absent bladder redemonstrated . BOWEL: Suboptimal evaluation without enteric contrast. Surgical changes epigastric region from gastri c bypass procedure again seen. Additional surgical sutures scattered throughout the abdomen and upper pelvis. Slightly prominent fecal filled colonic loop near sutures in the anterior midabdomen below u mbilicus. Stable right mid abdominal ostomy. No suspicious overall smaller large bowel dilatation. UTERUS/ADNEXA: Uterus surgically absent or markedly atrophic. Surgical clips bilateral pelvis. Scatte red bilateral pelvic phleboliths. LYMPH NODES: No greater than 1cm abdominal or pelvic lymph nodes are appreciated. OSSEOUS STRUCTURES: No significant abnormality is seen. OTHER: Left posterior Spinal stimulator device ascends the thoracic spinal canal. IMPRESSION: No significant new or acute finding is seen to account for patient's clinical symptoms. N o significant change from prior CTs.
[2019-08-04 13:37] LABS: Albumin 4.7 g/dL (3.5-5.0); Calcium 9.7 mg/dL (8.4-10.2); Potassium 3.8 mmol/L (3.5-5.1); Total Bilirubin 0.4 mg/dL (0.2-1.3)
[2019-08-04] MEDS ORDERED: LABETALOL 5 MG/ML VIAL MDV IVP STA (13:45)
[2019-08-04] MEDS ORDERED: NALOXONE 0.4 MG/ML 1 ML VIAL IV PRN (13:56)
[2019-08-04] MEDS ORDERED: PANTOPRAZOLE 40 MG/10 ML VIAL IV SCH (14:00)
[2019-08-04] MEDS: ONDANSETRON 4 MG/2 ML VIAL IVP PRN (14:05)
[2019-08-04] MEDS: SODIUM CHLORIDE 0.9% 1,000 ML IV SCH ×2 (15:52→21:18)
[2019-08-04] MEDS: HYDROmorphone 1 MG/ML 1 ML SYRINGE IVP PRN ×2 (16:53→20:21)
[2019-08-04] MEDS ORDERED: SUMAtriptan SUCCINATE 50 MG TAB PO PRN (17:43)
[2019-08-04] MEDS ORDERED: DICYCLOMINE 20 MG TAB PO PRN (17:43)
[2019-08-04] MEDS ORDERED: TRIMETHOBENZAMIDE 100 MG/ML 2 ML VIAL IM PRN (19:26)
--- NOTE | 2019-08-04 19:45 | P.HPIM ---
History of Present Illness H&P Date: 08/04/19 Chief Complaint: Abdominal pain History of presenting complaint: This is a 58-year-old patient of Dr. Bolanos. Chronic stable medical conditions include hypertension, obesity with previous bariatric surgery, anxiety disorder, bipolar disorder, hypertension, chronic back pain,. Patient had repeated blood infection with UTI and a chronic Storey catheter for 2 years. underwent partial bladder resection on January 08, 2019 [facility]. urostomy was created. Subsequently bilateral kidney stents were removed. Patient now presents with nausea vomiting predominantly dry heaving for about 6 days. Having upper abdominal epigastric pain going to the back. Denies any fever or chills. Not able to keep much down. Tired rundown. Occasional bowel movement. Patient found to have acute pancreatitis admitted for the same. Review of systems: GEN.: Weak tired EYES: None HEENT: None NECK: None RESPIRATORY: None CARDIOVASCULAR: None GASTROINTESTINAL: As above GENITOURINARY: None MUSCULOSKELETAL: Some joint complaints LYMPHATICS: None HEMATOLOGICAL: None PSYCHIATRY: Anxious NEUROLOGICAL: None Social history: Lives with son. May use a cane. Patient smoked for close to 20 years and stopped in 1998. 2 packs a day. No alcohol. Family history: Reviewed, noncontributory to presentation Physical examination: VITAL SIGNS: 98.3, 80, 16, 170 201 103, 98% on room air GENERAL: BMI 21.3, sitting up in bed, tired awake EYES: Pupils equal. Conjunctiva normal. HEENT: External appearance of nose and ears normal, oral cavity grossly normal. NECK: JVD not raised; masses not palpable. HEART: First and second heart sounds are normal; no edema. LUNGS: Respiratory rate normal; clear to auscultation. ABDOMEN: Soft, upper abdominal tenderness, no guarding or rigidity, liver spleen not palpable, no masses palpable, midline scar is present, urostomy bag-with wyatt ar urine PSYCH: AO - times three. Mood and affect normal NEUROLOGICAL: Cranial nerves grossly intact; no facial asymmetry, power and sensation grossly intact. LYMPHATICS: No lymph nodes palpable in the axilla and neck INVESTIGATIONS, reviewed in the clinical context: White count 5.8 hemoglobin 14.2 platelets 551 potassium 3.8 bun 15 creatinine 1.10 bicarb 13 Amylase 246 lipase 1325 EKG tracing personally reviewed by me-no sinus rhythm Computed tomography scan of the abdomen-no significant acute findings Previous testing: Creatinine was 0.77 on April 24 Assessment: -Acute idiopathic pancreatitis in the patient's was previously had cholecystectomy -Acute kidney injury likely prerenal to baseline creatinine of 0.77 -Acute metabolic acidosis from renal failure, -Essential hypertension -Bipolar disorder -Bladder surgery with ileal conduit Plan: Patient has been made nothing by mouth. Been given IV fluids. We'll add bicarbonate. Lovenox for DVT prophylaxis. Other medications to continue. Care was discussed with the patient. Questions answered. Past Medical History Past Medical History: Blood Disorder, Hypertension Additional Past Medical History / Comment(s): past Obesity with previous bariatric surgery, fluctuating body weight, endometreosis,general anxiety disorder, bipolar disorder, hypertension, chronic back pain, history of iron deficiency,"low rbc's" history of anemia requiring blood transfusions, uti,falls and in may with fall had fx to lt hip but no sx, dizzy spells, History of Any Multi-Drug Resistant Organisms: None Reported Past Surgical History: Appendectomy, Bariatric Surgery, Bladder Surgery, Section, Cholecystectomy, Hysterectomy, Tubal Ligation Additional Past Surgical History / Comment(s): bladder suspension, gastric bypass, colon volvulus had exporatory lap w/lysis of adhesions and rt colectomy Past Anesthesia/Blood Transfusion Reactions: No Reported Reaction Additional Past Anesthesia/Blood Transfusion Reaction / Comment(s): blood tr andfusion- no reaction Past Psychological History: Anxiety, Bipolar, Depression Additional Psychological History / Comment(s): pt lives alone in 2 story home but she stays on first floor. uses cane or walker-has dizzy spells at times and hx of falls. idc Smoking Status: Former smoker Past Alcohol Use History: None Reported Additional Past Alcohol Use History / Comment(s): started smoking at age 16(1976) smoked 2 ppd, quit 1998 Past Drug Use History: None Reported - Past Family History Mother Family Medical History: No Reported History Additional Family Medical History / Comment(s): no history Father Family Medical History: No Reported History Additional Family Medical History / Comment(s): from alcoholism Medications and Allergies Home Medications Medication Instructions Recorded Confirmed Type DULoxetine HCL [Cymbalta] 60 mg PO BID 03/21/16 08/04/19 History HYDROcodone/APAP 10-325MG [[place] 1 tab PO TID 03/21/16 08/04/19 History 10-325] SUMAtriptan SUCCINATE [Imitrex] 100 mg PO BID PRN 03/21/16 08/04/19 History carBAMazepine [TEGretol] 400 mg PO BID 03/21/16 08/04/19 History Lisinopril [Zestril] 40 mg PO DAILY 02/02/19 08/04/19 History Metoprolol Tartrate 25 mg PO BID 02/02/19 08/04/19 History busPIRone HCL 15 mg PO TID 02/02/19 08/04/19 History ALPRAZolam [Xanax] 1 mg PO QID 04/20/19 08/04/19 History Dicyclomine HCl 20 mg PO TID PRN 04/20/19 08/04/19 History Diphenoxylate HCl/Atropine 1 tab PO BID 04/20/19 08/04/19 History [Lomotil 2.5-0.025 mg Tablet] Fluticasone Nasal [place] [Flonase 1 spray EA NOSTRIL DAILY 04/20/19 08/04/19 History Nasal [place]] Promethazine HCl 25 mg PO BID 04/20/19 08/04/19 History Albuterol Inhaler [Ventolin Hfa 2 puff INHALATION RT-DAILY 08/04/19 08/04/19 History Inhaler] Butalb/APAP/Caff 50-325-40Mg 1 tab PO Q4H PRN 08/04/19 08/04/19 History [Fioricet 50-325-40] amLODIPine [Norvasc] 10 mg PO DAILY 08/04/19 08/04/19 History traZODone HCL [Desyrel] 100 mg PO HS 08/04/19 08/04/19 History Allergies Allergy/AdvReac Type Severity Reaction Status Date / Time No Known Allergies Allergy Verified 08/04/19 16:34 Physical Exam Vitals: Vital Signs Temp Pulse Pulse Resp BP BP Pulse Ox 08/04/19 16:12 98 F 77 18 157/108 99 08/04/19 16:00 77 18 08/04/19 14:13 71 16 135/97 98 08/04/19 13:30 84 14 160/110 99 08/04/19 13:00 84 14 100 08/04/19 12:30 73 17 166/110 100 08/04/19 12:11 98.3 F 80 16 172/103 98 08/04/19 12:00 79 26 H 162/113 100 08/04/19 11:56 100 Intake and Output 08/04/19 08/04/19 08/04/19 06:59 14:59 22:59 Other: Weight 54.431 kg 54.431 kg Results CBC & Chem 7: 08/04/19 12:05 08/04/19 12:05 Labs: Abnormal Lab Results - Last 24 Hours (Table) 08/04/19 08/04/19 08/04/19 Range/Units 12:05 12:05 12:05 MCHC 30.8 L (31.0-37.0) g/dL RDW 16.5 H (11.5-15.5) % Plt Count 551 H (150-450) k/uL Lymphocytes # 0.4 L (1.0-4.8) k/uL APTT 20.8 L (22.0-30.0) sec Sodium (137-145) mmol/L Carbon Dioxide (22-30) mmol/L Creatinine (0.52-1.04) mg/dL Glucose (74-99) mg/dL Amylase (30-110) U/L Lipase (23-300) U/L Urine Appearance Turbid H (Clear) Urine Protein 1+ H (Negative) Urine Blood Small H (Negative) Amorphous Sediment Rare H (None) /hpf Urine Bacteria Occasional H (None) /hpf Urine Mucus Rare H (None) /hpf 08/04/19 Range/Units 12:05 MCHC (31.0-37.0) g/dL RDW (11.5-15.5) % Plt Count (150-450) k/uL Lymphocytes # (1.0-4.8) k/uL APTT (22.0-30.0) sec Sodium 132 L (137-145) mmol/L Carbon Dioxide 13 L (22-30) mmol/L Creatinine 1.10 H (0.52-1.04) mg/dL Glucose 133 H (74-99) mg/dL Amylase 246 H (30-110) U/L Lipase 1325 H (23-300) U/L Urine Appearance (Clear) Urine Protein (Negative) Urine Blood (Negative) Amorphous Sediment (None) /hpf Urine Bacteria (None) /hpf Urine Mucus (None) /hpf
[2019-08-04] MEDS: ENOXAPARIN 40 MG/0.4 ML SYRINGE SQ SCH (20:14)
[2019-08-04] MEDS: carBAMazepine 200 MG TAB PO SCH (20:59)
[2019-08-04] MEDS: DULoxetine HCL 60 MG CAPSULE.DR PO SCH (20:59)
[2019-08-04] MEDS: PROMETHAZINE 25 MG TAB PO SCH (20:59)
[2019-08-04] MEDS: METOPROLOL TARTRATE 25 MG TAB PO SCH ×2 (20:59→21:17)
[2019-08-04] MEDS: traZODone HCL 100 MG TAB PO SCH (21:00)
[2019-08-04] MEDS: busPIRone HCl 5 MG TAB PO SCH (21:08)
[2019-08-04] MEDS: ALPRAZolam 1 MG TAB PO PRN (21:17)
[2019-08-04] MEDS ORDERED: ASPIRIN 325 MG TAB PO STA (21:19)
[2019-08-05] MEDS: ONDANSETRON 4 MG/2 ML VIAL IVP PRN (05:44)
[2019-08-05] MEDS: HYDROmorphone 1 MG/ML 1 ML SYRINGE IVP PRN ×5 (05:47→22:14)
[2019-08-05 07:37] LABS: African American GFR (CKD) >90 (>60 ml/min/1.73 sqM); Amylase 264 U/L (30-110); Anion Gap 11 mmol/L; Blood Urea Nitrogen 10 mg/dL (7-17); Calcium 8.5 mg/dL (8.4-10.2); Carbon Dioxide 12 mmol/L (22-30); Chloride 110 mmol/L (98-107); Glucose 96 mg/dL (74-99); Non-African American GFR(CKD) >90 (>60 ml/min/1.73 sqM); Potassium 3.6 mmol/L (3.5-5.1); Sodium 133 mmol/L (137-145)
[2019-08-05] MEDS: ALBUTEROL NEBULIZED 2.5 MG/3 ML INHALATION SCH (07:42)
[2019-08-05] MEDS: PROMETHAZINE 25 MG TAB PO SCH ×2 (08:55→21:21)
[2019-08-05] MEDS: ALPRAZolam 1 MG TAB PO PRN ×2 (08:55→17:07)
[2019-08-05] MEDS: LISINOPRIL 20 MG TAB PO SCH (08:55)
[2019-08-05] MEDS: METOPROLOL TARTRATE 25 MG TAB PO SCH ×2 (08:56→21:20)
[2019-08-05] MEDS: carBAMazepine 200 MG TAB PO SCH ×2 (08:56→21:20)
[2019-08-05] MEDS: DULoxetine HCL 60 MG CAPSULE.DR PO SCH ×2 (08:56→21:20)
[2019-08-05] MEDS: amLODIPine 10 MG TAB PO SCH (08:57)
[2019-08-05] MEDS: ASPIRIN 81 MG PO SCH (08:57)
[2019-08-05] MEDS: busPIRone HCl 5 MG TAB PO SCH ×3 (08:57→21:21)
[2019-08-05] MEDS: FLUTICASONE 50MCG/SPRAY NASAL 16GM EA NOSTRIL SCH (09:01)
[2019-08-05] MEDS: SODIUM CHLORIDE 0.9% 1,000 ML IV SCH ×3 (09:04→21:23)
[2019-08-05 09:42] LABS: Cholesterol 237 mg/dL (<200); Triglycerides 173 mg/dL (<150)
--- NOTE | 2019-08-05 09:42 | ECHOF ---
Referral Reason:Trop elevated MEASUREMENTS -------- HEIGHT: 160.0 cm WEIGHT: 54.4 kg BP: 150/90 IVSd: 1.7 cm (0.6 - 1.1) LVIDd: 2.3 cm (3.9 - 5.3) LVPWd: 1.6 cm (0.6 - 1.1) IVSs: 1.4 cm LVIDs: 1.3 cm LVPWs: 1.9 cm Ao Diam: 2.6 cm (2.0 - 3.7) AV Cusp: 1.4 cm (1.5 - 2.6) LA Diam: 2.8 cm (2.7 - 3.8) MV EXCURSION: 19.027 mm (> 18.000) MV EF SLOPE: 46 mm/s (70 - 150) EPSS: 0.9 cm MV E Omar: 0.54 m/s MV DecT: 164 ms MV A Omar: 0.95 m/s MV E/A Ratio: 0.57 AV maxP.80 mmHg AV meanP.71 mmHg AR PHT: 574 ms RAP: 5.00 mmHg RVSP: 13.83 mmHg FINDINGS -------- Sinus rhythm. This was a technically adequate study. Pt. Has Breast inplants The left ventricular size is normal. There is severe concentric left ventricular hypertrophy. Ove rall left ventricular systolic function is normal with, an EF between 60 - 65 %. Possible LVOT Obst ruction with a max gradient of 22mmHg. The right ventricle is normal in size. The left atrial size is normal. The right atrial size is normal. Aortic valve is trileaflet and is mildly thickened. There is mild aortic valve sclerosis. There i s mild aortic regurgitation. Peak/mean gradient across the Aortic Valve is 16.80mmHg / 9.71mmHg. The mitral valve is normal. There is trace mitral regurgitation. The tricuspid valve appears structurally normal. Trace tricuspid regurgitation present. There is no pulmonic regurgitation present. The aortic root size is normal. Normal inferior vena cava with normal inspiratory collapse consistent with estimated right atrial pre ssure of 5 mmHg. There is a trivial pericardial effusion present. CONCLUSIONS -------- 1. Sinus rhythm. 2. This was a technically adequate study. 3. Pt. Has Breast inplants 4. The left ventricular size is normal. 5. There is severe concentric left ventricular hypertrophy. 6. Overall left ventricular systolic function is normal with, an EF between 60 - 65 %. 7. Possible LVOT Obstruction with a max peak gradientof 22 mmHg. 8. The right ventricle is normal in size. 9. The left atrial size is normal. 10. The right atrial size is normal. 11. Aortic valve is trileaflet and is mildly thickened. 12. There is mild aortic valve sclerosis. 13. There is mild aortic regurgitation. 14. Peak/mean gradient across the Aortic Valve is 16.80mmHg / 9.71mmHg. 15. The mitral valve is normal. 16. There is trace mitral regurgitation. 17. The tricuspid valve appears structurally normal. 18. Trace tricuspid regurgitation present. 19. There is no pulmonic regurgitation present. 20. The aortic root size is normal. 21. Normal inferior vena cava with normal inspiratory collapse consistent with estimated right atrial pressure of 5 mmHg. 22. There is a trivial pericardial effusion present. IRRIGATION PUMP INSTALLER: Tea Ureña RDCS
[2019-08-05 09:50] LABS: LDL Cholesterol,Calculated 63 mg/dL (0-99)
[2019-08-05 09:53] LABS: HDL Cholesterol 139 mg/dL (40-60)
[2019-08-05] MEDS ORDERED: FAMOTIDINE 20 MG TAB PO SCH (10:15)
--- NOTE | 2019-08-05 10:47 | P.CRDCN ---
History of Present Illness History of present illness: HISTORY OF PRESENTING ILLNESS This is a pleasant 58-year-old female past medical history significant for hypertension, bariatric surgery, anemia requiring blood transfusions, multiple abdominal surgeries and bipolar disorder. She denies prior history of coronary artery disease and does not follow in the office with a neuro intensivist physician. She states she has never undergone any cardiac testing in the past. We have been asked to see in consultation for elevated troponin. She presented to the hospital with symptoms of nausea, vomiting, weakness, right upper quadrant abdominal pain and shortness of breath that has been going on for the previous one week. She states she has been unable to tolerate oral intake and has been feeling increasingly weak and short of breath. On arrival her lipase was noted to be 1325 with an amylase of 246. She has been diagnosed with acute pancreatitis and being treated with antibiotics and pain management. Troponin levels were tract indicating 0.336 and 0.272. She denies chest pain, dizziness or palpitations. She attributes her shortness of breath to increased weakness secondary to poor oral intake. Prior to becoming ill she states she walked reg ularly and denied exertional chest pain or shortness of breath. Echocardiogram revealed preserved LV systolic function with ejection fraction 60-65%, severe concentric LVH, possible LVOT obstruction with a peak max gradient of 22 mmHg, mild aortic regurgitation with a mean gradient of 9 mmHg across the valve. DIAGNOSTICS EKG reveals sinus mechanism heart rate of 78, poor R-wave progression and n onspecific ST changes with left axis deviation. Consistent with previous EKGs. No acute changes noted. CT of the abdomen and pelvis unremarkable. Laboratory reviewed, troponin 0.336, 0.272, and T proBNP 1200, sodium 133, potassium 3.6, creatinine 0.69 down from 1.1 on admission, triglycerides 173, LDL 63, HDL 139 and total cholesterol 237, WBC 5.8, hemoglobin 14.2 and platelets 551. Current cardiac medications include lisinopril 40 mg daily, metoprolol 25 mg twice a day and amlodipine 10 mg daily. REVIEW OF SYSTEMS At the time of my exam: CONSTITUTIONAL: Denies fever or chills. CARDIOVASCULAR: Denies chest pain, shortness of breath, orthopnea, PND or palpitations. RESPIRATORY: Denies cough. GASTROINTESTINAL: Complains of right upper quadrant abdominal pain. Denies diarrhea, constipation, nausea or vomiting. MUSCULOSKELETAL: Denies myalgias. NEUROLOGIC: Denies numbness, tingling or weakness. ENDOCRINE: Denies fatigue, weight change, polydipsia or polyurina. GENITOURINARY: Denies burning, hematuria or urgency with micturation. HEMATOLOGIC: Denies history of anemia or bleeding. PHYSICAL EXAMINATION Blood pressure 150/90 heart rate 92 afebrile and maintaining oxygen saturation on nasal cannula. CONSTITUTIONAL: No apparent distress. HEENT: Head is normocephalic. Pupils are equal, round. Sclerae anicteric. Mucous membranes of the mouth are moist. No JVD. No carotid bruit. CHEST EXAMINATION: Lungs are clear to auscultation. No chest wall tenderness is noted on palpation or with deep breathing. HEART EXAMINATION: Regular rate and rhythm. S1, S2 heard. Soft systolic ejec tion murmur at the left sternal border, no gallops or rub. ABDOMEN: Soft, mildly tender on the right. Positive bowel sounds. EXTREMITIES: 2+ peripheral pulses, no lower extremity edema and no calf ten derness. NEUROLOGIC EXAMINATION: Patient is awake, alert and oriented x3. ASSESSMENT Acute pancreatitis Troponin elevation of unclear etiology, no symptoms suggestive of angina and no EKG changes. Echocardiogram reviewed and reveals no evidence of wall motion abnormality. Hypertension History of anemia PLAN Echocardiogram reviewed reveals no evidence of wall motion abnormality. She has no symptoms suggestive of acute coronary syndrome. Recommend optimizing her medical therapy at this time. When pancreatitis has resolved we will pursue outpatient stress testing. Initiate aspirin 81 mg daily and atorvastatin 40 mg daily. Continue lisinopril, metoprolol and amlodipine as previously ordered. Thank you kindly for this consultation. Nurse Practitioner note has been reviewed, I agree with a documented findings and plan of care. Patient was seen and examined. Past Medical History Past Medical History: Blood Disorder, Hypertension Additional Past Medical History / Comment(s): past Obesity with previous bariatric surgery, fluctuating body weight, endometreosis,general anxiety disorder, bipolar disorder, hypertension, chronic back pain, history of iron deficiency,"low rbc's" history of anemia requiring blood transfusions, uti,falls and in may with fall had fx to lt hip but no sx, dizzy spells, History of Any Multi-Drug Resistant Organisms: None Reported Past Surgical History: Appendectomy, Bariatric Surgery, Bladder Surgery, Section, Cholecystectomy, Hysterectomy, Tubal Ligation Additional Past Surgical History / Comment(s): bladder suspension, gastric bypass, colon volvulus had exporatory lap w/lysis of adhesions and rt colectomy Past Anesthesia/Blood Transfusion Reactions: No Reported Reaction Additional Past Anesthesia/Blood Transfusion Reaction / Comment(s): blood trandfusion- no reaction Past Psychological History: Anxiety, Bipolar, Depression Additional Psychological History / Comment(s): pt lives alone in 2 story home but she stays on first floor. uses cane or walker-has dizzy spells at times and hx of falls. idc Smoking Status: Former smoker Past Alcohol Use History: None Reported Additional Past Alcohol Use History / Comment(s): started smoking at age 16(1976) smoked 2 ppd, quit 1998 Past Drug Use History: None Reported - Past Family History Mother Family Medical History: No Reported History Additional Family Medical History / Comment(s): no history Father Family Medical History: No Reported History Additional Family Medical History / Comment(s): from alcoholism Medications and Allergies Home Medications Medication Instructions Recorded Confirmed Type DULoxetine HCL [Cymbalta] 60 mg PO BID 03/21/16 08/04/19 History HYDROcodone/APAP 10-325MG [[place] 1 tab PO TID 03/21/16 08/04/19 History 10-325] SUMAtriptan SUCCINATE [Imitrex] 100 mg PO BID PRN 03/21/16 08/04/19 History carBAMazepine [TEGretol] 400 mg PO BID 03/21/16 08/04/19 History Lisinopril [Zestril] 40 mg PO DAILY 02/02/19 08/04/19 History Metoprolol Tartrate 25 mg PO BID 02/02/19 08/04/19 History busPIRone HCL 15 mg PO TID 02/02/19 08/04/19 History ALPRAZolam [Xanax] 1 mg PO QID 04/20/19 08/04/19 History Dicyclomine HCl 20 mg PO TID PRN 04/20/19 08/04/19 History Diphenoxylate HCl/Atropine 1 tab PO BID 04/20/19 08/04/19 History [Lomotil 2.5-0.025 mg Tablet] Fluticasone Nasal [place] [Flonase 1 spray EA NOSTRIL DAILY 04/20/19 08/04/19 History Nasal [place]] Promethazine HCl 25 mg PO BID 04/20/19 08/04/19 History Albuterol Inhaler [Ventolin Hfa 2 puff INHALATION RT-DAILY 08/04/19 08/04/19 History Inhaler] Butalb/APAP/Caff 50-325-40Mg 1 tab PO Q4H PRN 08/04/19 08/04/19 History [Fioricet 50-325-40] amLODIPine [Norvasc] 10 mg PO DAILY 08/04/19 08/04/19 History traZODone HCL [Desyrel] 100 mg PO HS 08/04/19 08/04/19 History Allergies Allergy/AdvReac Type Severity Reaction Status Date / Time No Known Allergies Allergy Verified 08/04/19 16:34 Physical Exam Vitals: Vital Signs Temp Pulse Pulse Resp BP BP Pulse Ox 08/05/19 07:55 92 08/05/19 07:43 92 08/05/19 05:00 98.1 F 90 16 150/90 96 08/04/19 21:00 97.5 F L 92 16 160/99 97 08/04/19 16:12 98 F 77 18 157/108 99 08/04/19 16:00 77 18 08/04/19 14:13 71 16 135/97 98 08/04/19 13:30 84 14 160/110 99 08/04/19 13:00 84 14 100 08/04/19 12:30 73 17 166/110 100 08/04/19 12:11 98.3 F 80 16 172/103 98 08/04/19 12:00 79 26 H 162/113 100 08/04/19 11:56 100 Intake and Output 08/04/19 08/05/19 08/05/19 22:59 06:59 14:59 Intake Total 480 960 Output Total 750 Balance 480 210 Intake: Intake, IV Titration 480 960 Amount Sodium Chloride 0.9% 1, 480 960 000 ml @ 120 mls/hr IV . Q8H20M [facility] Rx#:[id number] Output: Urine 750 Other: Voiding Method Ileal Conduit (Right) Ileal Conduit (Right) Weight 54.431 kg Results 08/04/19 12:05 08/05/19 05:50 Cardiac Enzymes 08/04/19 08/04/19 08/05/19 Range/Units 12:05 20:03 05:50 AST 22 (14-36) U/L Troponin I 0.336 H* 0.272 H* (0.000-0.034) ng/mL Coagulation 08/04/19 Range/Units 12:05 PT 9.5 (9.0-12.0) sec APTT 20.8 L (22.0-30.0) sec Lipids 08/05/19 Range/Units 05:50 Triglycerides 173 H (<150) mg/dL Cholesterol 237 H (<200) mg/dL HDL Cholesterol 139 H (40-60) mg/dL CBC 08/04/19 Range/Units 12:05 WBC 5.8 (3.8-10.6) k/uL RBC 4.69 (3.80-5.40) m/uL Hgb 14.2 (11.4-16.0) gm/dL Hct 46.0 (34.0-46.0) % Plt Count 551 H (150-450) k/uL Comprehensive Metabolic Panel 08/04/19 08/05/19 Range/Units 12:05 05:50 Sodium 132 L 133 L (137-145) mmol/L Potassium 3.8 3.6 (3.5-5.1) mmol/L Chloride 106 110 H (98-107) mmol/L Carbon Dioxide 13 L 12 L (22-30) mmol/L BUN 15 10 (7-17) mg/dL Creatinine 1.10 H 0.69 (0.52-1.04) mg/dL Glucose 133 H 96 (74-99) mg/dL Calcium 9.7 8.5 (8.4-10.2) mg/dL AST 22 (14-36) U/L ALT 14 (4-34) U/L Alkaline Phosphatase 119 (38-126) U/L Total Protein 8.0 (6.3-8.2) g/dL Albumin 4.7 (3.5-5.0) g/dL Current Medications Generic Name Dose Route Start Last Admin Trade Name Freq PRN Reason Stop Dose Admin Acetaminophen/Butalbital/Caffeine 1 each 08/04/19 17:43 Fioricet 50-325-40 PO Q4H PRN Migraine Headache Albuterol Sulfate 2.5 mg 08/05/19 08:00 08/05/19 07:42 Ventolin Nebulized INHALATION 2.5 mg RT-DAILY [facility]RIET Administration Alprazolam 1 mg 08/04/19 17:43 08/05/19 08:55 Xanax PO 1 mg QID PRN Administration Anxiety Amlodipine Besylate 10 mg 08/05/19 09:00 08/05/19 08:57 Norvasc PO 10 mg DAILY HARRIET Administration Aspirin 81 mg 08/05/19 09:00 08/05/19 08:57 Aspirin PO 81 mg DAILY HARRIET Administration Atorvastatin Calcium 40 mg 08/05/19 09:30 Lipitor PO DAILY HARRIET Buspirone HCl 15 mg 08/04/19 22:00 08/05/19 08:57 Buspar PO 15 mg TID HARRIET Administration Carbamazepine 400 mg 08/04/19 21:00 08/05/19 08:56 Tegretol PO 400 mg BID [facility] Administration Dicyclomine HCl 20 mg 08/04/19 17:43 Bentyl PO TID PRN Pain Diphenoxylate HCl/Atropine 1 each 08/04/19 21:00 Lomotil PO BID PRN Diarrhea Duloxetine HCl 60 mg 08/04/19 21:00 08/05/19 08:56 Cymbalta PO 60 mg BID [facility] Administration Enoxaparin Sodium 40 mg 08/04/19 20:00 08/04/19 20:14 Lovenox SQ 40 mg DAILY [facility] Administration Famotidine 20 mg 08/05/19 10:15 Pepcid PO BID [facility] Fluticasone Propionate 1 spray 08/05/19 09:00 08/05/19 09:01 Flonase Nasal [place] EA NOSTRIL Not Given DAILY [facility] Hydromorphone HCl 1 mg 08/04/19 13:56 08/05/19 08:54 Dilaudid IVP 1 mg Q3HR PRN Administration Severe Pain Sodium Chloride 1,000 mls @ 120 mls/hr 08/04/19 14:00 08/05/19 09:04 Saline 0.9% IV 120 mls/hr .Q8H20M [facility] Administration Iopamidol 30 ml 08/04/19 12:08 Isovue-300 (For Oral Use) PO 08/05/19 12:[address] Scan Lisinopril 40 mg 08/05/19 09:00 08/05/19 08:55 Zestril PO 40 mg DAILY [facility] Administration Metoprolol Tartrate 25 mg 08/04/19 21:00 08/05/19 08:56 Lopressor PO 25 mg BID [facility] Administration Naloxone HCl 0.2 mg 08/04/19 13:56 Narcan IV Q2M PRN Opioid Reversal Ondansetron HCl 4 mg 08/04/19 13:56 08/05/19 05:44 Zofran IVP 4 mg Q8HR PRN Administration Nausea And Vomiting Promethazine HCl 25 mg 08/04/19 21:00 08/05/19 08:55 Phenergan PO 25 mg BID [facility] Administration Sumatriptan Succinate 100 mg 08/04/19 17:43 Imitrex PO BID PRN Migraine Headache Trazodone HCl 100 mg 08/04/19 21:00 08/04/19 21:00 Desyrel PO Not Given HS [facility] Trimethobenzamide HCl 200 mg 08/04/19 19:26 08/04/19 20:14 Tigan IM 200 mg Q6HR PRN Administration Nausea And Vomiting Intake and Output 08/04/19 08/05/19 08/05/19 22:59 06:59 14:59 Intake Total 480 960 Output Total 750 Balance 480 210 Intake: Intake, IV Titration 480 960 Amount Sodium Chloride 0.9% 1, 480 960 000 ml @ 120 mls/hr IV . Q8H20M [facility] Rx#:[id number] Output: Urine 750 Other: Voiding Method Ileal Conduit (Right) Ileal Conduit (Right) Weight 54.431 kg 08/04/19 12:05 08/05/19 05:50
--- NOTE | 2019-08-05 12:37 | XR ---
EXAMINATION TYPE: XR chest 1V DATE OF EXAM: 08/05/2019 HISTORY: Shortness of breath. COMPARISON: 06/10/2019 TECHNIQUE: Single view of the chest is submitted. FINDINGS: Demonstrated are scattered senescent parenchymal change. There is no evidence for focal infiltrate. The heart is stable. Hilar and mediastinal structures are within normal limits. Degenerative changes are seen of the dorsal spine. IMPRESSION: 1. Chronic changes without evidence for acute pulmonary disease.
[2019-08-05] MEDS: ENOXAPARIN 40 MG/0.4 ML SYRINGE SQ SCH (13:44)
[2019-08-05] MEDS: PANTOPRAZOLE 40 MG/10 ML VIAL IVP SCH ×2 (13:45→21:21)
[2019-08-05] MEDS: ATORVASTATIN 40 MG TAB PO SCH (13:45)
--- NOTE | 2019-08-05 15:28 | P.CONS ---
History of Present Illness - Reason for Consult Consult date: 08/05/19 Pancreatitis Requesting physician: Maurilio Zhang - Chief Complaint Nausea, abdominal pain, dry heaving - History of Present Illness 58-year-old female with multiple medical comorbidities including hypertension, bariatric surgery, anxiety, bipolar disorder, hypertension, chronic back pain and partial bladder resection in 2019 with urostomy formation who presented due to nausea, dry heaving and abdominal pain. The patient for symptoms of one week of nausea, weakness and dry heaving. She does have a remote history of gastric bypass. She was also hospitalized in the past for acute uncomplicated pancreatitis. At that time no triggers were found as the patient reports a prior history of cholecystectomy at the time of her gastric bypass and no history of heavy alcohol use. The patient does believe she had EGD and colonoscopy within the past few years. She did have 1 episode of diarrhea a few days ago however this is resolved. She denies any problems with dysphagia or odynophagia but does report frequent episodes of reflux with associated nausea. Review of Systems REVIEW OF SYSTEMS: CONSTITUTIONAL: Denies any fevers, chills, weight change or fatigue. CARDIOVASCULAR: Denies any chest pain, palpitations high or low blood pressures RESPIRATORY: Denies any shortness of breath, hemoptysis or cough. GENITOURINARY: Extensive genitourinary history with prior partial bladder resection with urostomy formation. MUSCULOSKELETAL: No weakness reported. SKIN: Denies any new rashes or lesions, jaundice or pallor. PSYCHIATRIC: Denies any depression at this time but does have a history of anxiety and bipolar disorder. NEUROLOGY: Denies headache, denies any new focal deficits. EARS/NOSE/THROAT: No recent hearing change, congestion, nasal discharge or sore throat. EYES: No pain in eyes, discharge or change in vision. GASTROINTESTINAL: As per HPI. Past Medical History Past Medical History: Blood Disorder, Hypertension Additional Past Medical History / Comment(s): past Obesity with previous bariatric surgery, fluctuating body weight, endometreosis,general anxiety disorder, bipolar disorder, hypertension, chronic back pain, history of iron deficiency,"low rbc's" history of anemia requiring blood transfusions, uti,falls and in may with fall had fx to lt hip but no sx, dizzy spells, History of Any Multi-Drug Resistant Organisms: None Reported Past Surgical History: Appendectomy, Bariatric Surgery, Bladder Surgery, Section, Cholecystectomy, Hysterectomy, Tubal Ligation Additional Past Surgical History / Comment(s): bladder suspension, gastric bypass, colon volvulus had exporatory lap w/lysis of adhesions and rt colectomy Past Anesthesia/Blood Transfusion Reactions: No Reported Reaction Additional Past Anesthesia/Blood Transfusion Reaction / Comm: blood trandfusion- no reaction Past Psychological History: Anxiety, Bipolar, Depression Additional Psychological History / Comment(s): pt lives alone in 2 story home but she stays on first floor. uses cane or walker-has dizzy spells at times and hx of falls. idc Smoking Status: Former smoker Past Alcohol Use History: None Reported Additional Past Alcohol Use History / Comment(s): started smoking at age 16(1976) smoked 2 ppd, quit 1998 Past Drug Use History: None Reported - Past Family History Mother Family Medical History: No Reported History Additional Family Medical History / Comment(s): no history Father Family Medical History: No Reported History Additional Family Medical History / Comment(s): from alcoholism Medications and Allergies Home Medications Medication Instructions Recorded Confirmed Type DULoxetine HCL [Cymbalta] 60 mg PO BID 03/21/16 08/04/19 History HYDROcodone/APAP 10-325MG [[place] 1 tab PO TID 03/21/16 08/04/19 History 10-325] SUMAtriptan SUCCINATE [Imitrex] 100 mg PO BID PRN 03/21/16 08/04/19 History carBAMazepine [TEGretol] 400 mg PO BID 03/21/16 08/04/19 History Lisinopril [Zestril] 40 mg PO DAILY 02/02/19 08/04/19 History Metoprolol Tartrate 25 mg PO BID 02/02/19 08/04/19 History busPIRone HCL 15 mg PO TID 02/02/19 08/04/19 History ALPRAZolam [Xanax] 1 mg PO QID 04/20/19 08/04/19 History Dicyclomine HCl 20 mg PO TID PRN 04/20/19 08/04/19 History Diphenoxylate HCl/Atropine 1 tab PO BID 04/20/19 08/04/19 History [Lomotil 2.5-0.025 mg Tablet] Fluticasone Nasal [place] [Flonase 1 spray EA NOSTRIL DAILY 04/20/19 08/04/19 History Nasal [place]] Promethazine HCl 25 mg PO BID 04/20/19 08/04/19 History Albuterol Inhaler [Ventolin Hfa 2 puff INHALATION RT-DAILY 08/04/19 08/04/19 History Inhaler] Butalb/APAP/Caff 50-325-40Mg 1 tab PO Q4H PRN 08/04/19 08/04/19 History [Fioricet 50-325-40] amLODIPine [Norvasc] 10 mg PO DAILY 08/04/19 08/04/19 History traZODone HCL [Desyrel] 100 mg PO HS 08/04/19 08/04/19 History Allergies Allergy/AdvReac Type Severity Reaction Status Date / Time No Known Allergies Allergy Verified 08/04/19 16:34 Physical Exam Vitals: Vital Signs Temp Pulse Pulse Resp BP Pulse Ox 08/05/19 12:01 97.4 F L 75 16 133/88 100 08/05/19 07:55 92 08/05/19 07:43 92 08/05/19 05:00 98.1 F 90 16 150/90 96 08/04/19 21:00 97.5 F L 92 16 160/99 97 08/04/19 16:12 98 F 77 18 157/108 99 08/04/19 16:00 77 18 Intake and Output 08/05/19 08/05/19 08/05/19 06:59 14:59 22:59 Intake Total 960 Output Total 750 Balance 210 Intake: Intake, IV Titration 960 Amount Sodium Chloride 0.9% 1, 960 000 ml @ 120 mls/hr IV . Q8H20M [facility] Rx#:[id number] Output: Urine 750 Other: Voiding Method Ileal Conduit (Right) On physical examination, patient appears comfortable in no apparent distress. HEAD: Normocephalic, atraumatic. EYES: No scleral icterus. No conjunctival injection. MOUTH: No lesions, tongue midline. NECK: Trachea midline, no gross abnormalities. CHEST: Clear to auscultation with no wheezing or rhonchi appreciated. HEART: Regular rate and rhythm. ABDOMEN: Soft, mildly tender to palpation. Bowel sounds are positive. No org anomegaly. No guarding or rigidity. EXTREMITIES: No pedal edema. SKIN: No rashes, no jaundice. NEUROLOGIC: Alert and oriented x3. No focal deficits. Results CBC & Chem 7: 08/04/19 12:05 08/05/19 05:50 Labs: Abnormal Lab Results - Last 24 Hours (Table) 08/04/19 08/05/19 08/05/19 Range/Units 20:03 05:50 05:50 Sodium 133 L (137-145) mmol/L Chloride 110 H (98-107) mmol/L Carbon Dioxide 12 L (22-30) mmol/L Troponin I 0.336 H* 0.272 H* (0.000-0.034) ng/mL Triglycerides (<150) mg/dL Cholesterol (<200) mg/dL HDL Cholesterol (40-60) mg/dL Amylase 264 H (30-110) U/L Lipase 2351 H (23-300) U/L 08/05/19 Range/Units 05:50 Sodium (137-145) mmol/L Chloride (98-107) mmol/L Carbon Dioxide (22-30) mmol/L Troponin I (0.000-0.034) ng/mL Triglycerides 173 H (<150) mg/dL Cholesterol 237 H (<200) mg/dL HDL Cholesterol 139 H (40-60) mg/dL Amylase (30-110) U/L Lipase (23-300) U/L CT scan - abdomen: report reviewed (No significant new or acute findings on computed tomography scan of the abdomen) Assessment and Plan (1) Acute pancreatitis Narrative/Plan: 58-year-old female presenting with complaints of nausea, retching, vomiting, weakness and abdominal pain. Found to have markedly elevated lipase at 2314 with amylase elevated at 264. Liver enzymes within normal limits with total bilirubin 0.4, alkaline phosphatase 119, AST 22 and ALT 14. No acute findings on computed tomography scan of the abdomen but given patient's reports of abdominal pain in association with nausea and elevated lipase patient is being treated for acute uncomplicated pancreatitis. Prior episode in the past with no trigger found at that time. She reports prior history of cholecystectomy. She denies any excessive alcohol use. At this time we'll continue supportive care and order autoimmune workup for pancreatitis. Current Visit: Yes Status: Acute Code(s): K85.90 - ACUTE PANCREATITIS WITHOUT NECROSIS OR INFECTION, UNSP SNOMED Code(s): 485370652 (2) Abdominal pain Current Visit: No Status: Acute Code(s): R10.9 - UNSPECIFIED ABDOMINAL PAIN SNOMED Code(s): 98242736 (3) History of gastric bypass Current Visit: No Status: Acute Code(s): Z98.84 - BARIATRIC SURGERY STATUS SNOMED Code(s): 896151304 (4) Intractable vomiting Current Visit: No Status: Acute Code(s): R11.10 - VOMITING, UNSPECIFIED SNOMED Code(s): 226464558 Plan: Supportive care Clear liquid diet IV fluid hydration Pain control RICHY and IgG 4 ordered to rule out autoimmune pancreatitis Protonix twice daily added with Pepcid change to nightly for possible uncontr olled reflux Ultrasound of the abdomen ordered Thank you for allowing us to participate in the care of the patient we will continue to follow
--- NOTE | 2019-08-05 19:26 | P.PN ---
Progress Note - Text Progress Note Date: 08/05/19 Chief Complaint: Abdominal pain History of presenting complaint: This is a 58-year-old patient of Dr. Bolanos. Chronic stable medical conditions include hypertension, obesity with previous bariatric surgery, anxiety disorder, bipolar disorder, hypertension, chronic back pain,. Patient had repeated blood infection with UTI and a chronic Storey catheter for 2 years. underwent partial bladder resection on January 08, 2019 [facility]. urostomy was created. Subsequently bilateral kidney stents were removed. Patient now presents with nausea vomiting predominantly dry heaving for about 6 days. Having upper abdominal epigastric pain going to the back. Denies any fever or chills. Not able to keep much down. Tired rundown. Occasional bowel movement. Admitted-with acute pancreatitis. Made nothing by mouth. Start on IV fluids. Patient also had positive troponins. No cardiac symptoms. Today-slightly decreased epigastric pain. Did tolerate some clear liquid.. Review of systems: Was done for constitutional, cardiovascular, GI, pulmonary. relevant finding as above Active Medications Acetaminophen/Butalbital/Caffeine (Fioricet 50-325-40) 1 each PO Q4H PRN PRN Reason: Migraine Headache Albuterol Sulfate (Ventolin Nebulized) 2.5 mg INHALATION RT-DAILY [facility] Last Admin: 08/05/19 07:42 Dose: 2.5 mg Documented by: Alprazolam (Xanax) 1 mg PO QID PRN PRN Reason: Anxiety Last Admin: 08/05/19 17:07 Dose: 1 mg Documented by: Amlodipine Besylate (Norvasc) 10 mg PO DAILY [facility] Last Admin: 08/05/19 08:57 Dose: 10 mg Documented by: Aspirin (Aspirin) 81 mg PO DAILY [facility] Last Admin: 08/05/19 08:57 Dose: 81 mg Documented by: Atorvastatin Calcium (Lipitor) 40 mg PO DAILY [facility] Last Admin: 08/05/19 13:45 Dose: 40 mg Documented by: Buspirone HCl (Buspar) 15 mg PO TID [facility] Last Admin: 08/05/19 17:08 Dose: 15 mg Documented by: Carbamazepine (Tegretol) 400 mg PO BID [facility] Last Admin: 08/05/19 08:56 Dose: 400 mg Documented by: Dicyclomine HCl (Bentyl) 20 mg PO TID PRN PRN Reason: Pain Diphenoxylate HCl/Atropine (Lomotil) 1 each PO BID PRN PRN Reason: Diarrhea Duloxetine HCl (Cymbalta) 60 mg PO BID [facility] Last Admin: 08/05/19 08:56 Dose: 60 mg Documented by: Enoxaparin Sodium (Lovenox) 40 mg SQ DAILY [facility] Last Admin: 08/05/19 13:44 Dose: 40 mg Documented by: Famotidine (Pepcid) 20 mg PO [facility] Fluticasone Propionate (Flonase Nasal [place]) 1 spray EA NOSTRIL DAILY [facility] Last Admin: 08/05/19 09:01 Dose: Not Given Documented by: Hydromorphone HCl (Dilaudid) 1 mg IVP Q3HR PRN PRN Reason: Severe Pain Last Admin: 08/05/19 17:07 Dose: 1 mg Documented by: Sodium Chloride (Saline 0.9%) 1,000 mls @ 120 mls/hr IV .Q8H20M [facility] Last Admin: 08/05/19 09:04 Dose: 120 mls/hr Documented by: Lisinopril (Zestril) 40 mg PO DAILY [facility] Last Admin: 08/05/19 08:55 Dose: 40 mg Documented by: Metoprolol Tartrate (Lopressor) 25 mg PO BID [facility] Last Admin: 08/05/19 08:56 Dose: 25 mg Documented by: Naloxone HCl (Narcan) 0.2 mg IV Q2M PRN PRN Reason: Opioid Reversal Ondansetron HCl (Zofran) 4 mg IVP Q8HR PRN PRN Reason: Nausea And Vomiting Last Admin: 08/05/19 05:44 Dose: 4 mg Documented by: Pantoprazole Sodium (Protonix) 40 mg IVP BID [facility] Last Admin: 08/05/19 13:45 Dose: 40 mg Documented by: Promethazine HCl (Phenergan) 25 mg PO BID [facility] Last Admin: 08/05/19 08:55 Dose: 25 mg Documented by: Sumatriptan Succinate (Imitrex) 100 mg PO BID PRN PRN Reason: Migraine Headache Trazodone HCl (Desyrel) 100 mg PO [facility] Last Admin: 08/04/19 21:00 Dose: Not Given Documented by: Trimethobenzamide HCl (Tigan) 200 mg IM Q6HR PRN PRN Reason: Nausea And Vomiting Last Admin: 08/04/19 20:14 Dose: 200 mg Documented by: Physical examination: VITAL SIGNS: 97.4, 75, 16, 133/88, 100% on room air GENERAL: Propped up in bed, not in distress EYES: Pupils equal. Conjunctiva normal. HEENT: External appearance of nose and ears normal, oral cavity grossly normal. NECK: JVD not raised; masses not palpable. HEART: First and second heart sounds are normal; no edema. LUNGS: Respiratory rate normal; clear to auscultation. ABDOMEN: Soft, some upper abdominal tenderness, no guarding or rigidity, liver spleen not palpable, no masses palpable, midline scar is present, urostomy bag- with clear urine PSYCH: AO - times three. Mood and affect normal INVESTIGATIONS, reviewed in the clinical context: Progression 3.6 creatinine 0.69 Troponin I 0.336, 0.272 proBNP 1200 Amylase 264 lipase 2351 2-D echocardiogram-EF 60%. No wall motion a day. Previous testing White count 5.8 hemoglobin 14.2 platelets 551 potassium 3.8 bun 15 creatinine 1.10 bicarb 13 Amylase 246 lipase 1325 EKG tracing personally reviewed by me-no sinus rhythm Computed tomography scan of the abdomen-no significant acute findings Creatinine was 0.77 on April 24 Assessment: -Acute idiopathic pancreatitis in the patient's was previously had cholecystectomy-biochemically worsening -Acute kidney injury likely prerenal to baseline creatinine of 0.77, POA- improved -Acute metabolic acidosis from renal failure,-slow to respond -Essential hypertension -Bipolar disorder -Bladder surgery with ileal conduit -Troponin leak but no cardiac symptoms. Seen by cardiac surgery. For further o utpatient workup Plan: Acute the patient on clear liquids. Not addressed is currently. Follow with GI. That's and also autoimmune antibody testing. Patient denies any chest pain. Discussed with the patient. Repeat labs.
[2019-08-05] MEDS: BUTALB/APAP/CAFF 50-325-40MG TAB PO PRN (19:39)
[2019-08-05] MEDS: FAMOTIDINE 20 MG TAB PO SCH (21:20)
[2019-08-05] MEDS: traZODone HCL 100 MG TAB PO SCH (21:21)
[2019-08-05] MEDS ORDERED: HYDROmorphone 1 MG/ML 1 ML SYRINGE ONE (23:53)
[2019-08-06] MEDS: SODIUM CHLORIDE 0.9% 1,000 ML IV SCH ×3 (05:43→21:06)
[2019-08-06] MEDS: HYDROmorphone 1 MG/ML 1 ML SYRINGE IVP PRN ×4 (05:44→20:53)
[2019-08-06 06:31] LABS: African American GFR (CKD) >90 (>60 ml/min/1.73 sqM); Anion Gap 5 mmol/L; Calcium 7.8 mg/dL (8.4-10.2); Carbon Dioxide 16 mmol/L (22-30); Chloride 111 mmol/L (98-107); Glucose 94 mg/dL (74-99); Non-African American GFR(CKD) >90 (>60 ml/min/1.73 sqM); Sodium 132 mmol/L (137-145)
[2019-08-06 06:35] LABS: Blood Urea Nitrogen 4 mg/dL (7-17); Potassium 3.1 mmol/L (3.5-5.1)
[2019-08-06] MEDS: ALBUTEROL NEBULIZED 2.5 MG/3 ML INHALATION SCH (07:38)
[2019-08-06] MEDS ORDERED: Potassium Replacement Protocol 1 EACH MISC MISCELLANE PRN (07:43)
[2019-08-06] MEDS: ONDANSETRON 4 MG/2 ML VIAL IVP PRN (08:34)
[2019-08-06] MEDS: PANTOPRAZOLE 40 MG/10 ML VIAL IVP SCH ×2 (08:38→20:54)
[2019-08-06] MEDS: ATORVASTATIN 40 MG TAB PO SCH (08:38)
[2019-08-06] MEDS: LISINOPRIL 20 MG TAB PO SCH (08:38)
[2019-08-06] MEDS: ENOXAPARIN 40 MG/0.4 ML SYRINGE SQ SCH (08:38)
[2019-08-06] MEDS: FLUTICASONE 50MCG/SPRAY NASAL 16GM EA NOSTRIL SCH (08:38)
[2019-08-06] MEDS: amLODIPine 10 MG TAB PO SCH (08:38)
[2019-08-06] MEDS: POTASSIUM CHLORIDE ER 20 MEQ TAB.ER PO SCH ×2 (08:39→08:43)
[2019-08-06] MEDS: METOPROLOL TARTRATE 25 MG TAB PO SCH ×2 (08:39→20:57)
[2019-08-06] MEDS: busPIRone HCl 5 MG TAB PO SCH ×3 (08:39→20:54)
[2019-08-06] MEDS: ASPIRIN 81 MG PO SCH (08:39)
[2019-08-06] MEDS: PROMETHAZINE 25 MG TAB PO SCH ×2 (08:39→20:59)
[2019-08-06] MEDS: DULoxetine HCL 60 MG CAPSULE.DR PO SCH ×2 (08:41→20:55)
[2019-08-06] MEDS: carBAMazepine 200 MG TAB PO SCH ×2 (08:41→20:56)
[2019-08-06] MEDS: ALPRAZolam 1 MG TAB PO PRN (08:52)
--- NOTE | 2019-08-06 10:45 | P.PN ---
Subjective HISTORY OF PRESENTING ILLNESS This is a pleasant 58-year-old female past medical history significant for hypertension, bariatric surgery, anemia requiring blood transfusions, multiple abdominal surgeries and bipolar disorder. 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 She is seen and examined sitting up in bed in no acute distress. She continues to be mildly nauseated but no vomiting. She is tolerating a clear liquid diet. No complaints of chest pain, shortness of breath or palpitations. Blood pressure 104/69 heart rate 84 afebrile and maintaining oxygen saturation on room air. Laboratory data reviewed, sodium 132, potassium 3.1, creatinine 0.64 and lipase 1718. PHYSICAL EXAMINATION CONSTITUTIONAL: No apparent distress. HEENT: Head is normocephalic. Pupils are equal, round. Sclerae anicteric. Mucous membranes of the mouth are moist. No JVD. No carotid bruit. CHEST EXAMINATION: Lungs are clear to auscultation. No chest wall tenderness is noted on palpation or with deep breathing. HEART EXAMINATION: Regular rate and rhythm. S1, S2 heard. Soft systolic ejection murmur at the left sternal border, no gallops or rub. EXTREMITIES: 2+ peripheral pulses, no lower extremity edema and no calf tenderness. ASSESSMENT Acute pancreatitis Troponin elevation of unclear etiology, no symptoms suggestive of angina and no EKG changes. Echocardiogram reviewed and reveals no evidence of wall motion abnormality. Hypokalemia Hypertension History of anemia PLAN Replace potassium per protocol. Ongoing medical management and treatment of pancreatitis. Recommend stress test in the office in one to 2 weeks after discharge. Continue aspirin, atorvastatin and beta blockers previously ordered. Nurse Practitioner note has been reviewed, I agree with a documented findings and plan of care. Patient was seen and examined. Objective - Vital Signs Vital signs: Vital Signs Temp 97.9 F 08/06/19 05:00 Pulse 84 08/06/19 07:50 Resp 16 08/06/19 05:00 BP 104/69 08/06/19 05:00 Pulse Ox 99 08/06/19 05:00 Intake & Output 08/05/19 08/06/19 08/06/19 18:59 06:59 18:59 Intake Total 960 2240 Output Total 1000 Balance 960 1240 Intake: Intake, IV Titration 960 1440 Amount Sodium Chloride 0.9% 1, 960 1440 000 ml @ 120 mls/hr IV . Q8H20M [facility] Rx#:[id number] Oral 800 Output: Urine 1000 Other: Voiding Method Ileal Conduit (Right) Ileal Conduit (Right) Ileal Conduit (Right) - Labs CBC & Chem 7: 08/04/19 12:05 08/06/19 05:27 Labs: Abnormal Lab Results - Last 24 Hours (Table) 08/06/19 Range/Units 05:27 Sodium 132 L (137-145) mmol/L Potassium 3.1 L (3.5-5.1) mmol/L Chloride 111 H (98-107) mmol/L Carbon Dioxide 16 L (22-30) mmol/L BUN 4 L (7-17) mg/dL Calcium 7.8 L (8.4-10.2) mg/dL Lipase 1718 H (23-300) U/L
--- NOTE | 2019-08-06 11:05 | US ---
EXAMINATION TYPE: US abdomen complete DATE OF EXAM: 08/06/2019 COMPARISON: CT dated 08/04/2019 CLINICAL HISTORY: pancreatitis. EXAM MEASUREMENTS: Liver Length: 15.9 cm Gallbladder Wall: Surgically absent CBD: 1.4 cm Spleen: 8.4 cm Right Kidney: 10.4 x 3.2 x 4.2 cm Left Kidney: 10.0 5.7 x 5.1 cm Patient of small stature with tight intercostal spaces and ostomy right midline taking up large port ion of abdomen. Technically difficult, limited study. Pancreas: Obscured by bowel gas Liver: wnl as seen, limited views other than intrahepatic biliary ductal dilatation. Gallbladder: Surgically absent Evidence for sonographic Hyman's sign: CBD: dilated with intrahepatic duct dilitation Spleen: very limited visualization Right Kidney: portions visualized wnl, limited visualization Left Kidney: portions visualized wnl, limited visualization Upper IVC: wnl Abd Aorta: wnl The liver is homogenous with intrahepatic and extra hepatic biliary ductal dilatation. The intrahepa tic portion of the IVC and proximal abdominal aorta are within normal limits. Common bile duct is dil ated and gallbladder surgically absent. The visualized portions of the pancreas are homogenous. The spleen is poorly visualized. Kidneys are symmetric and free of hydronephrosis. No renal lesions ar e seen. IMPRESSION: 1. Pancreas is obscured by bowel gas in this patient with pancreatitis. 2. Degree of common bile duct dilatation is above expected for a postcholecystectomy patient and intr ahepatic biliary ductal dilatation is present. Therefore MRCP could evaluate for distal biliary stric ture or obstructing calculus. Correlate with serum laboratory values.
[2019-08-06 11:50] LABS: Total Bilirubin 0.3 mg/dL (0.2-1.3)
[2019-08-06 13:30] LABS: IgG Subclass 3 31.7 mg/dL (11.0-85.0); IgG Subclass 4 55.2 mg/dL (3.0-175.0)
[2019-08-06] MEDS ORDERED: BISACODYL 10 MG SUPP RECTAL STA (13:31)
--- NOTE | 2019-08-06 17:26 | P.PN ---
Progress Note - Text Progress Note Date: 08/06/19 Chief Complaint: Abdominal pain History of presenting complaint: This is a 58-year-old patient of Dr. Bolanos. Chronic stable medical conditions include hypertension, obesity with previous bariatric surgery, anxiety disorder, bipolar disorder, hypertension, chronic back pain,. Patient had repeated blood infection with UTI and a chronic Storey catheter for 2 years. underwent partial bladder resection on January 08, 2019 [facility]. urostomy was created. Subsequently bilateral kidney stents were removed. Patient now presents with nausea vomiting predominantly dry heaving for about 6 days. Having upper abdominal epigastric pain going to the back. Denies any fever or chills. Not able to keep much down. Tired rundown. Occasional bowel movement. Admitted-with acute pancreatitis. Made nothing by mouth. Start on IV fluids. Patient also had positive troponins. No cardiac symptoms.-Not felt to be acute Sylvester syndrome. Today-. Remains on clear liquids. Still having epigastric discomfort. No fever no chills. Review of systems: Was done for constitutional, cardiovascular, GI, pulmonary. relevant finding as above Active Medications Acetaminophen/Butalbital/Caffeine (Fioricet 50-325-40) 1 each PO Q4H PRN PRN Reason: Migraine Headache Last Admin: 08/05/19 19:39 Dose: 1 each Documented by: Albuterol Sulfate (Ventolin Nebulized) 2.5 mg INHALATION RT-DAILY [facility] Last Admin: 08/06/19 07:38 Dose: 2.5 mg Documented by: Alprazolam (Xanax) 1 mg PO QID PRN PRN Reason: Anxiety Last Admin: 08/06/19 08:52 Dose: 1 mg Documented by: Amlodipine Besylate (Norvasc) 10 mg PO DAILY [facility] Last Admin: 08/06/19 08:38 Dose: 10 mg Documented by: Aspirin (Aspirin) 81 mg PO DAILY [facility] Last Admin: 08/06/19 08:39 Dose: 81 mg Documented by: Atorvastatin Calcium (Lipitor) 40 mg PO DAILY [facility] Last Admin: 08/06/19 08:38 Dose: 40 mg Documented by: Buspirone HCl (Buspar) 15 mg PO TID [facility] Last Admin: 08/06/19 17:20 Dose: 15 mg Documented by: Carbamazepine (Tegretol) 400 mg PO BID [facility] Last Admin: 08/06/19 08:41 Dose: 400 mg Documented by: Dicyclomine HCl (Bentyl) 20 mg PO TID PRN PRN Reason: Pain Diphenoxylate HCl/Atropine (Lomotil) 1 each PO BID PRN PRN Reason: Diarrhea Duloxetine HCl (Cymbalta) 60 mg PO BID [facility] Last Admin: 08/06/19 08:41 Dose: 60 mg Documented by: Enoxaparin Sodium (Lovenox) 40 mg SQ DAILY [facility] Last Admin: 08/06/19 08:38 Dose: 40 mg Documented by: Famotidine (Pepcid) 20 mg PO HS [facility] Last Admin: 08/05/19 21:20 Dose: 20 mg Documented by: Fluticasone Propionate (Flonase Nasal [place]) 1 spray EA NOSTRIL DAILY [facility] Last Admin: 08/06/19 08:38 Dose: 1 spray Documented by: Hydromorphone HCl (Dilaudid) 1 mg IVP Q3HR PRN PRN Reason: Severe Pain Last Admin: 08/06/19 12:05 Dose: 1 mg Documented by: Sodium Chloride (Saline 0.9%) 1,000 mls @ 120 mls/hr IV .Q8H20M [facility] Last Admin: 08/06/19 12:06 Dose: 120 mls/hr Documented by: Lisinopril (Zestril) 40 mg PO DAILY [facility] Last Admin: 08/06/19 08:38 Dose: 40 mg Documented by: Metoprolol Tartrate (Lopressor) 25 mg PO BID [facility] Last Admin: 08/06/19 08:39 Dose: 25 mg Documented by: Miscellaneous Information (Potassium Per Protocol) 1 each MISCELLANE DAILY PRN; Protocol PRN Reason: Per Protocol Naloxone HCl (Narcan) 0.2 mg IV Q2M PRN PRN Reason: Opioid Reversal Ondansetron HCl (Zofran) 4 mg IVP Q8HR PRN PRN Reason: Nausea And Vomiting Last Admin: 08/06/19 08:34 Dose: 4 mg Documented by: Pantoprazole Sodium (Protonix) 40 mg IVP BID [facility] Last Admin: 08/06/19 08:38 Dose: 40 mg Documented by: Promethazine HCl (Phenergan) 25 mg PO BID [facility] Last Admin: 08/06/19 08:39 Dose: 25 mg Documented by: Sumatriptan Succinate (Imitrex) 100 mg PO BID PRN PRN Reason: Migraine Headache Trazodone HCl (Desyrel) 100 mg PO HS [facility] Last Admin: 08/05/19 21:21 Dose: 100 mg Documented by: Trimethobenzamide HCl (Tigan) 200 mg IM Q6HR PRN PRN Reason: Nausea And Vomiting Last Admin: 08/04/19 20:14 Dose: 200 mg Documented by: Physical examination: VITAL SIGNS: 97.9, 78, 16, 104/69, 99% room air GENERAL: Sitting at the edge of the bed, slightly uncomfortable EYES: Pupils equal. Conjunctiva normal. HEENT: External appearance of nose and ears normal, oral cavity grossly normal. NECK: JVD not raised; masses not palpable. HEART: First and second heart sounds are normal; no edema. LUNGS: Respiratory rate normal; clear to auscultation. ABDOMEN: Soft, upper abdominal tenderness, no guarding or rigidity, liver spleen not palpable, no masses palpable, midline scar is present, urostomy bag- with clear urine PSYCH: AO - times three. Mood and affect normal INVESTIGATIONS, reviewed in the clinical context: Potassium 3.1 creatinine 0.64 Lipase 1718 IgG1 5.0, IgG 2-53, IgG 331.7, IgG 455.2, RICHY screen-negative Previous testing White count 5.8 hemoglobin 14.2 platelets 551 potassium 3.8 bun 15 creatinine 1.10 bicarb 13 Amylase 246 lipase 1325 EKG tracing personally reviewed by me-no sinus rhythm Computed tomography scan of the abdomen-no significant acute findings Creatinine was 0.77 on April 24 Troponin I 0.336, 0.272 proBNP 1200 Amylase 264 lipase 2351 2-D echocardiogram-EF 60%. No wall motion abnormality Assessment: -Acute idiopathic pancreatitis in the patient's was previously had cholecystectomy-biochemically slow to respond -Acute kidney injury likely prerenal to baseline creatinine of 0.77, POA- improved -Acute metabolic acidosis from renal failure,-slow to respond -Essential hypertension -Bipolar disorder -Bladder surgery with ileal conduit -Troponin leak but no cardiac symptoms. Seen by cardiac surgery. For further outpatient workup Plan: Discussed with the patient. We'll keep the patient on clear liquids for today. Hopefully can start full liquids the morning. Repeat lipase in the morning. Discussed with the patient. Increase activity.
[2019-08-06] MEDS: traZODone HCL 100 MG TAB PO SCH (20:55)
[2019-08-06] MEDS: FAMOTIDINE 20 MG TAB PO SCH (20:55)
[2019-08-07] MEDS: HYDROmorphone 1 MG/ML 1 ML SYRINGE IVP PRN ×5 (02:45→21:07)
[2019-08-07] MEDS: ALPRAZolam 1 MG TAB PO PRN (02:46)
[2019-08-07] MEDS: SODIUM CHLORIDE 0.9% 1,000 ML IV SCH ×3 (05:16→21:03)
[2019-08-07] MEDS: ALBUTEROL NEBULIZED 2.5 MG/3 ML INHALATION SCH (07:28)
--- NOTE | 2019-08-07 08:23 | P.PN ---
Subjective Progress Note Date: 08/06/19 Principal diagnosis: Abdominal pain, pancreatitis Patient is lying in bed still reporting abdominal pain. No nausea vomiting. Has tolerated some liquids. No bowel movements reported. Objective - Vital Signs Vital signs: Vital Signs Temp 97.6 F 08/07/19 05:00 Pulse 88 08/07/19 07:50 Resp 16 08/07/19 05:00 BP 100/66 08/07/19 05:00 Pulse Ox 100 08/07/19 05:00 Intake & Output 08/06/19 08/07/19 08/07/19 18:59 06:59 18:59 Intake Total 960 830 Balance 960 830 Intake: IV 240 Sodium Chloride 0.9% 1, 240 000 ml @ 120 mls/hr IV . Q8H20M [facility] Rx#:[id number] Intake, IV Titration 960 Amount Sodium Chloride 0.9% 1, 960 000 ml @ 120 mls/hr IV . Q8H20M [facility] Rx#:[id number] Oral 590 Other: Voiding Method Ileal Conduit (Right) Ileal Conduit (Right) - Exam On physical examination, patient appears comfortable in no apparent distress. HEAD: Normocephalic, atraumatic. EYES: No scleral icterus. No conjunctival injection. MOUTH: No lesions, tongue midline. NECK: Trachea midline, no gross abnormalities. ABDOMEN: Soft, urostomy noted intact. Bowel sounds are positive. No organomegaly. No guarding or rigidity. EXTREMITIES: No pedal edema. SKIN: No rashes, no jaundice. NEUROLOGIC: Alert and oriented x3. No focal deficits. - Labs CBC & Chem 7: 08/04/19 12:05 08/06/19 05:27 Assessment and Plan (1) Acute pancreatitis Narrative/Plan: 58-year-old female presenting with complaints of nausea, retching, vomiting, weakness and abdominal pain. Found to have markedly elevated lipase at 2314 with amylase elevated at 264. Liver enzymes within normal limits with total bilirubin 0.4, alkaline phosphatase 119, AST 22 and ALT 14. No acute findings on computed tomography scan of the abdomen but given patient's reports of abdominal pain in association with nausea and elevated lipase patient is being treated for acute uncomplicated pancreatitis. Prior episode in the past with no trigger found at that time. She reports prior history of cholecystectomy. She denies any excessive alcohol use. At this time we'll continue supportive care and order autoimmune workup for pancreatitis. Current Visit: Yes Status: Acute Code(s): K85.90 - ACUTE PANCREATITIS WITHOUT NECROSIS OR INFECTION, UNSP SNOMED Code(s): 335881690 (2) Abdominal pain Current Visit: No Status: Acute Code(s): R10.9 - UNSPECIFIED ABDOMINAL PAIN SNOMED Code(s): 98011111 (3) History of gastric bypass Current Visit: No Status: Acute Code(s): Z98.84 - BARIATRIC SURGERY STATUS SNOMED Code(s): 710617490 (4) Intractable vomiting Current Visit: No Status: Acute Code(s): R11.10 - VOMITING, UNSPECIFIED SNOMED Code(s): 168984246 Plan: Supportive care Clear liquid diet, advance as tolerated IV fluid hydration Pain control RICHY and IgG 4 ordered to rule out autoimmune pancreatitis Protonix twice daily added with Pepcid change to nightly for possible uncontrolled reflux Dulcolax suppository ordered Ultrasound of the abdomen reviewed, no plan for MRCP in the setting of normal liver enzymes Thank you for allowing us to participate in the care of the patient we will continue to follow
[2019-08-07] MEDS: ENOXAPARIN 40 MG/0.4 ML SYRINGE SQ SCH (08:39)
[2019-08-07] MEDS: PROMETHAZINE 25 MG TAB PO SCH ×2 (08:39→21:00)
[2019-08-07] MEDS: ASPIRIN 81 MG PO SCH (08:39)
[2019-08-07] MEDS: amLODIPine 10 MG TAB PO SCH (08:39)
[2019-08-07] MEDS: ATORVASTATIN 40 MG TAB PO SCH (08:39)
[2019-08-07] MEDS: LISINOPRIL 20 MG TAB PO SCH (08:39)
[2019-08-07] MEDS: carBAMazepine 200 MG TAB PO SCH ×2 (08:39→21:00)
[2019-08-07] MEDS: PANTOPRAZOLE 40 MG/10 ML VIAL IVP SCH ×2 (08:39→21:00)
[2019-08-07] MEDS: busPIRone HCl 5 MG TAB PO SCH ×3 (08:39→21:00)
[2019-08-07] MEDS: DULoxetine HCL 60 MG CAPSULE.DR PO SCH ×2 (08:39→21:00)
[2019-08-07] MEDS: METOPROLOL TARTRATE 25 MG TAB PO SCH ×2 (08:39→21:00)
[2019-08-07] MEDS: FLUTICASONE 50MCG/SPRAY NASAL 16GM EA NOSTRIL SCH (08:49)
--- NOTE | 2019-08-07 09:55 | P.PN ---
Subjective This is a 58-year-old patient of Dr. Bolanos. Chronic stable medical conditions include hypertension, obesity with previous bariatric surgery, anxiety disorder, bipolar disorder, hypertension, chronic back pain,. Patient had repeated blood infection with UTI and a chronic Storey catheter for 2 years. underwent partial bladder resection on January 08, 2019 [facility]. urostomy was created. Subsequently bilateral kidney stents were removed. Patient now presents with nausea vomiting predominantly dry heaving for about 6 days. Having upper abdominal epigastric pain going to the back. Denies any fever or chills. Not able to keep much down. Tired rundown. Occasional bowel movement. Admitted-with acute pancreatitis. Made nothing by mouth. Start on IV fluids. Patient also had positive troponins. No cardiac symptoms.-Not felt to be acute Sylvester syndrome. Today-. Remains on clear liquids. Still having epigastric discomfort. No fever no chills. 08/07/2019 Patient is awake and alert, in bed comfortable. She tolerated her liquid diet but she denies nausea vomiting, she still complaining from abdominal pain stating that's is about 8.5-9/10 in severity however significantly improved compared to admission. Yesterday she had laxative suppository and since then this morning she had some good bowel movement. Her blood pressure on the low normal signs and this morning it was 100/66, she is also normal saline and 120 m L per hour. She is on 3 blood pressure medication and we going to hold Norvasc and continue with lisinopril and metoprolol Patient feels hungry and wants her diet to be advanced. When asked she does not know why she takes Tegretol at home, she denies history of seizure but could be due to her bipolar disorder Abdominal ultrasound showing biliary dilatation and recommended MRCP by radiologist however when asked patient has neurostimulator for her back pain. We got to follow up with GI service Discussed with staff Review of systems CONSTITUTIONAL: No fever, no malaise, no fatigue. HEENT: No recent visual problems or hearing problems. Denied any sore throat. CARDIOVASCULAR: No orthopnea, PND, no palpitations, no syncope. PULMONARY: No shortness of breath, no cough, no hemoptysis. NEUROLOGICAL: No headaches, no weakness, no numbness. HEMATOLOGICAL: Denies any bleeding or petechiae. GENITOURINARY: Denies any burning micturition, frequency, or urgency. MUSCULOSKELETAL/RHEUMATOLOGICAL: Denies any joint pain, swelling, or any muscle pain. ENDOCRINE: Denies any polyuria or polydipsia. Active Medications Generic Name Dose Route Start Last Admin Trade Name Freq PRN Reason Stop Dose Admin Acetaminophen/Butalbital/Caffeine 1 each 08/04/19 17:43 08/05/19 19:39 Fioricet 50-325-40 PO 1 each Q4H PRN Administration Migraine Headache Albuterol Sulfate 2.5 mg 08/05/19 08:00 08/07/19 07:28 Ventolin Nebulized INHALATION 2.5 mg RT-DAILY [facility] Administration Alprazolam 1 mg 08/04/19 17:43 08/07/19 02:46 Xanax PO 1 mg QID PRN Administration Anxiety Aspirin 81 mg 08/05/19 09:00 08/07/19 08:39 Aspirin PO 81 mg DAILY [facility] Administration Atorvastatin Calcium 40 mg 08/05/19 09:30 08/07/19 08:39 Lipitor PO 40 mg DAILY [facility] Administration Buspirone HCl 15 mg 08/04/19 22:00 08/07/19 08:39 Buspar PO 15 mg TID [facility] Administration Carbamazepine 400 mg 08/04/19 21:00 08/07/19 08:39 Tegretol PO 400 mg BID [facility] Administration Dicyclomine HCl 20 mg 08/04/19 17:43 Bentyl PO TID PRN Pain Diphenoxylate HCl/Atropine 1 each 08/04/19 21:00 Lomotil PO BID PRN Diarrhea Duloxetine HCl 60 mg 08/04/19 21:00 08/07/19 08:39 Cymbalta PO 60 mg BID [facility] Administration Enoxaparin Sodium 40 mg 08/04/19 20:00 08/07/19 08:39 Lovenox SQ 40 mg DAILY [facility] Administration Famotidine 20 mg 08/05/19 21:00 08/06/19 20:55 Pepcid PO 20 mg HS [facility] Administration Fluticasone Propionate 1 spray 08/05/19 09:00 08/07/19 08:49 Flonase Nasal [place] EA NOSTRIL 1 spray DAILY HAR[facility]ET Administration Hydromorphone HCl 1 mg 08/04/19 13:56 08/07/19 08:46 Dilaudid IVP 1 mg Q3HR PRN Administration Severe Pain Sodium Chloride 1,000 mls @ 120 mls/hr 08/04/19 14:00 08/07/19 05:16 Saline 0.9% IV 120 mls/hr .Q8H20M [facility] Administration Lisinopril 40 mg 08/05/19 09:00 08/07/19 08:39 Zestril PO 40 mg DAILY HAR[facility]ET Administration Metoprolol Tartrate 25 mg 08/04/19 21:00 08/07/19 08:39 Lopressor PO 25 mg BID [facility] Administration Miscellaneous Information 1 each 08/06/19 07:43 Potassium Per Protocol MISCELLANE DAILY PRN Per Protocol Protocol Naloxone HCl 0.2 mg 08/04/19 13:56 Narcan IV Q2M PRN Opioid Reversal Ondansetron HCl 4 mg 08/04/19 13:56 08/06/19 08:34 Zofran IVP 4 mg Q8HR PRN Administration Nausea And Vomiting Pantoprazole Sodium 40 mg 08/05/19 12:00 08/07/19 08:39 Protonix IVP 40 mg BID [facility] Administration Promethazine HCl 25 mg 08/04/19 21:00 08/07/19 08:39 Phenergan PO 25 mg BID [facility] Administration Sumatriptan Succinate 100 mg 08/04/19 17:43 Imitrex PO BID PRN Migraine Headache Trazodone HCl 100 mg 08/04/19 21:00 08/06/19 20:55 Desyrel PO 100 mg HS [facility] Administration Trimethobenzamide HCl 200 mg 08/04/19 19:26 08/04/19 20:14 Tigan IM 200 mg Q6HR PRN Administration Nausea And Vomiting Objective - Vital Signs Vital signs: Vital Signs Temp 97.6 F 08/07/19 05:00 Pulse 88 08/07/19 07:50 Resp 16 08/07/19 05:00 BP 100/66 08/07/19 05:00 Pulse Ox 100 08/07/19 05:00 Intake & Output 08/06/19 08/07/19 08/07/19 18:59 06:59 18:59 Intake Total 960 830 Balance 960 830 Intake: IV 240 Sodium Chloride 0.9% 1, 240 000 ml @ 120 mls/hr IV . Q8H20M [facility] Rx#:[id number] Intake, IV Titration 960 Amount Sodium Chloride 0.9% 1, 960 000 ml @ 120 mls/hr IV . Q8H20M [facility] Rx#:[id number] Oral 590 Other: Voiding Method Ileal Conduit (Right) Ileal Conduit (Right) Ileal Conduit (Right) - Exam GENERAL: The patient is alert and oriented x3, not in any acute distress. Well developed, well nourished. HEENT: Pupils are round and equally reacting to light. EOMI. No scleral icterus. No conjunctival pallor. Normocephalic, atraumatic. No pharyngeal erythema. No thyromegaly. CARDIOVASCULAR: S1 and S2 present. No murmurs, rubs, or gallops. PULMONARY: Chest is clear to auscultation, no wheezing or crackles. -ABDOMEN: Soft, epigastric tenderness, nondistended, normoactive bowel sounds. No palpable organomegaly. urostomy bag-with clear urine MUSCULOSKELETAL: No joint swelling or deformity. EXTREMITIES: No cyanosis, clubbing, or pedal edema. NEUROLOGICAL: Gross neurological examination did not reveal any focal deficits. SKIN: No rashes. no petechiae. - Labs CBC & Chem 7: 08/04/19 12:05 08/06/19 05:27 Assessment and Plan Assessment: -Acute idiopathic pancreatitis in the patient's was previously had continue with IV fluid, Protonix, pain management -Biliary tract dilatation, internal more than external. 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 With known to follow up with GI service -Acute kidney injury likely prerenal, improved -Troponin leak but no cardiac symptoms. Seen by cardiac surgery. For further outpatient workup. Continue with medical therapy -Essential hypertension -Bipolar disorder, not in activity -History of Bladder surgery with ileal conduit DVT prophylaxis: Lovenox GI prophylaxis: Protonix Prognosis is guarded
[2019-08-07] MEDS: BUTALB/APAP/CAFF 50-325-40MG TAB PO PRN (15:29)
[2019-08-07] MEDS: ONDANSETRON 4 MG/2 ML VIAL IVP PRN (16:55)
[2019-08-07] MEDS: traZODone HCL 100 MG TAB PO SCH (21:00)
[2019-08-07] MEDS: FAMOTIDINE 20 MG TAB PO SCH (21:00)
[2019-08-08] MEDS: HYDROmorphone 1 MG/ML 1 ML SYRINGE IVP PRN ×3 (03:56→21:58)
[2019-08-08] MEDS: SODIUM CHLORIDE 0.9% 1,000 ML IV SCH ×2 (05:13→21:18)
[2019-08-08 06:27] LABS: Anisocytosis Slight; Basophils % (A) 1 %; Eosinophils # (A) 0.3 k/uL (0-0.7); Eosinophils % (A) 6 %; HCT 33.8 % (34.0-46.0); Hypochromasia Marked; Lymphocytes # (A) 1.3 k/uL (1.0-4.8); Lymphocytes % (A) 25 %; MCH 31.4 pg (25.0-35.0); MCHC 31.1 g/dL (31.0-37.0); MCV 101.1 fL (80.0-100.0); Macrocytosis Moderate; Mean Platelet Volume 7.3; Monocytes # (A) 0.3 k/uL (0-1.0); Monocytes % (A) 6 %; Neutrophils # (A) 3.1 k/uL (1.3-7.7); Neutrophils % (A) 62 %; Platelet Count 375 k/uL (150-450); RBC 3.34 m/uL (3.80-5.40); RDW 17.2 % (11.5-15.5)
[2019-08-08 06:41] LABS: HGB 10.5 gm/dL (11.4-16.0)
[2019-08-08 06:50] LABS: ALT 10 U/L (4-34); AST 15 U/L (14-36); African American GFR (CKD) >90 (>60 ml/min/1.73 sqM); Albumin 2.6 g/dL (3.5-5.0); Alkaline Phosphatase 72 U/L (38-126); Anion Gap 6 mmol/L; Bilirubin,Unconjugated 0.2 mg/dL (0.0-1.1); Blood Urea Nitrogen 3 mg/dL (7-17); Calcium 7.8 mg/dL (8.4-10.2); Carbon Dioxide 16 mmol/L (22-30); Chloride 111 mmol/L (98-107); Glucose 80 mg/dL (74-99); Non-African American GFR(CKD) >90 (>60 ml/min/1.73 sqM); Potassium 3.8 mmol/L (3.5-5.1); Sodium 133 mmol/L (137-145); Total Bilirubin <0.1 mg/dL (0.2-1.3); Total Protein 5.1 g/dL (6.3-8.2)
[2019-08-08] MEDS: ALBUTEROL NEBULIZED 2.5 MG/3 ML INHALATION SCH (07:25)
[2019-08-08] MEDS: DULoxetine HCL 60 MG CAPSULE.DR PO SCH ×2 (09:37→21:09)
[2019-08-08] MEDS: METOPROLOL TARTRATE 25 MG TAB PO SCH ×2 (09:37→21:09)
[2019-08-08] MEDS: PROMETHAZINE 25 MG TAB PO SCH ×2 (09:37→21:10)
[2019-08-08] MEDS: busPIRone HCl 5 MG TAB PO SCH ×3 (09:37→22:48)
[2019-08-08] MEDS: ATORVASTATIN 40 MG TAB PO SCH (09:37)
[2019-08-08] MEDS: ENOXAPARIN 40 MG/0.4 ML SYRINGE SQ SCH (09:37)
[2019-08-08] MEDS: ASPIRIN 81 MG PO SCH (09:37)
[2019-08-08] MEDS: PANTOPRAZOLE 40 MG/10 ML VIAL IVP SCH ×2 (09:37→21:10)
[2019-08-08] MEDS: LISINOPRIL 20 MG TAB PO SCH (09:38)
[2019-08-08] MEDS: carBAMazepine 200 MG TAB PO SCH ×2 (09:38→21:10)
--- NOTE | 2019-08-08 09:50 | P.PN ---
Subjective This is a 58-year-old patient of Dr. Bolanos. Chronic stable medical conditions include hypertension, obesity with previous bariatric surgery, anxiety disorder, bipolar disorder, hypertension, chronic back pain,. Patient had repeated blood infection with UTI and a chronic Storey catheter for 2 years. underwent partial bladder resection on January 08, 2019 [facility]. urostomy was created. Subsequently bilateral kidney stents were removed. Patient now presents with nausea vomiting predominantly dry heaving for about 6 days. Having upper abdominal epigastric pain going to the back. Denies any fever or chills. Not able to keep much down. Tired rundown. Occasional bowel movement. Admitted-with acute pancreatitis. Made nothing by mouth. Start on IV fluids. Patient also had positive troponins. No cardiac symptoms.-Not felt to be acute Sylvester syndrome. Today-. Remains on clear liquids. Still having epigastric discomfort. No fever no chills. 08/07/2019 Patient is awake and alert, in bed comfortable. She tolerated her liquid diet but she denies nausea vomiting, she still complaining from abdominal pain stating that's is about 8.5-9/10 in severity however significantly improved compared to admission. Yesterday she had laxative suppository and since then this morning she had some good bowel movement. Her blood pressure on the low normal signs and this morning it was 100/66, she is also normal saline and 120 m L per hour. She is on 3 blood pressure medication and we going to hold Norvasc and continue with lisinopril and metoprolol Patient feels hungry and wants her diet to be advanced. When asked she does not know why she takes Tegretol at home, she denies history of seizure but could be due to her bipolar disorder Abdominal ultrasound showing biliary dilatation and recommended MRCP by radiologist however when asked patient has neurostimulator for her back pain. We got to follow up with GI service Discussed with staff 08/08/2019 Patient still complaining from same abdominal pain, however she needs her diet slowly because she has nausea however she is on antiemetic medication. Patient denies vomiting. She had bowel movement yesterday after suppository. She is passing gases. She is able to walk in the room with no difficulties. Radiologist recommended MRCP for her dilated biliary tract, however MRI cannot be done because of her neurostimulator, follow-up with GI team for further recommendation Review of systems CONSTITUTIONAL: No fever, no malaise, no fatigue. HEENT: No recent visual problems or hearing problems. Denied any sore throat. CARDIOVASCULAR: No orthopnea, PND, no palpitations, no syncope. PULMONARY: No shortness of breath, no cough, no hemoptysis. NEUROLOGICAL: No headaches, no weakness, no numbness. HEMATOLOGICAL: Denies any bleeding or petechiae. GENITOURINARY: Denies any burning micturition, frequency, or urgency. MUSCULOSKELETAL/RHEUMATOLOGICAL: Denies any joint pain, swelling, or any muscle pain. ENDOCRINE: Denies any polyuria or polydipsia. Active Medications Generic Name Dose Route Start Last Admin Trade Name Freq PRN Reason Stop Dose Admin Acetaminophen/Butalbital/Caffeine 1 each 08/04/19 17:43 08/07/19 15:29 Fioricet 50-325-40 PO 1 each Q4H PRN Administration Migraine Headache Albuterol Sulfate 2.5 mg 08/05/19 08:00 08/08/19 07:25 Ventolin Nebulized INHALATION 2.5 mg RT-DAILY [facility] Administration Alprazolam 1 mg 08/04/19 17:43 08/07/19 02:46 Xanax PO 1 mg QID PRN Administration Anxiety Aspirin 81 mg 08/05/19 09:00 08/08/19 09:37 Aspirin PO 81 mg DAILY [facility] Administration Atorvastatin Calcium 40 mg 08/05/19 09:30 08/08/19 09:37 Lipitor PO 40 mg DAILY [facility] Administration Buspirone HCl 15 mg 08/04/19 22:00 08/08/19 09:37 Buspar PO 15 mg TID [facility]ET Administration Carbamazepine 400 mg 08/04/19 21:00 08/08/19 09:38 Tegretol PO 400 mg BID HAR[facility]ET Administration Dicyclomine HCl 20 mg 08/04/19 17:43 Bentyl PO TID PRN Pain Diphenoxylate HCl/Atropine 1 each 08/04/19 21:00 Lomotil PO BID PRN Diarrhea Duloxetine HCl 60 mg 08/04/19 21:00 08/08/19 09:37 Cymbalta PO 60 mg BID HAR[facility] Administration Enoxaparin Sodium 40 mg 08/04/19 20:00 08/08/19 09:37 Lovenox SQ 40 mg DAILY HARRIET Administration Famotidine 20 mg 08/05/19 21:00 08/07/19 21:00 Pepcid PO 20 mg HS HARRIET Administration Fluticasone Propionate 1 spray 08/05/19 09:00 08/07/19 08:49 Flonase Nasal [place] EA NOSTRIL 1 spray DAILY HARRIET Administration Hydromorphone HCl 1 mg 08/04/19 13:56 08/08/19 03:56 Dilaudid IVP 1 mg Q3HR PRN Administration Severe Pain Sodium Chloride 1,000 mls @ 120 mls/hr 08/04/19 14:00 08/08/19 05:13 Saline 0.9% IV 120 mls/hr .Q8H20M [facility] Administration Lisinopril 40 mg 08/05/19 09:00 08/08/19 09:38 Zestril PO 40 mg DAILY HAR[facility] Administration Metoprolol Tartrate 25 mg 08/04/19 21:00 08/08/19 09:37 Lopressor PO 25 mg BID HARRIET Administration Miscellaneous Information 1 each 08/06/19 07:43 Potassium Per Protocol MISCELLANE DAILY PRN Per Protocol Protocol Naloxone HCl 0.2 mg 08/04/19 13:56 Narcan IV Q2M PRN Opioid Reversal Ondansetron HCl 4 mg 08/04/19 13:56 08/07/19 16:55 Zofran IVP 4 mg Q8HR PRN Administration Nausea And Vomiting Pantoprazole Sodium 40 mg 08/05/19 12:00 08/08/19 09:37 Protonix IVP 40 mg BID HAR[facility] Administration Promethazine HCl 25 mg 08/04/19 21:00 08/08/19 09:37 Phenergan PO 25 mg BID HAR[facility]ET Administration Sumatriptan Succinate 100 mg 08/04/19 17:43 Imitrex PO BID PRN Migraine Headache Trazodone HCl 100 mg 08/04/19 21:00 08/07/19 21:00 Desyrel PO 100 mg HS [facility] Administration Trimethobenzamide HCl 200 mg 08/04/19 19:26 08/04/19 20:14 Tigan IM 200 mg Q6HR PRN Administration Nausea And Vomiting Objective - Vital Signs Vital signs: Vital Signs Temp 97.4 F L 08/08/19 03:59 Pulse 99 08/08/19 07:35 Resp 16 08/08/19 03:59 BP 123/84 08/08/19 03:59 Pulse Ox 99 08/08/19 07:26 Intake & Output 08/07/19 08/08/19 08/08/19 18:59 06:59 18:59 Intake Total 940 2030 Balance 940 2030 Intake: IV 940 480 Sodium Chloride 0.9% 1, 940 480 000 ml @ 120 mls/hr IV . Q8H20M [facility] Rx#:[id number] Intake, IV Titration 960 Amount Sodium Chloride 0.9% 1, 960 000 ml @ 120 mls/hr IV . Q8H20M [facility] Rx#:[id number] Oral 590 Other: Voiding Method Ileal Conduit (Right) Ileal Conduit (Right) - Exam GENERAL: The patient is alert and oriented x3, not in any acute distress. Well developed, well nourished. HEENT: Pupils are round and equally reacting to light. EOMI. No scleral icterus. No conjunctival pallor. Normocephalic, atraumatic. No pharyngeal erythema. No thyromegaly. CARDIOVASCULAR: S1 and S2 present. No murmurs, rubs, or gallops. PULMONARY: Chest is clear to auscultation, no wheezing or crackles. -ABDOMEN: Soft, epigastric tenderness, nondistended, normoactive bowel sounds. No palpable organomegaly. urostomy bag-with clear urine MUSCULOSKELETAL: No joint swelling or deformity. EXTREMITIES: No cyanosis, clubbing, or pedal edema. NEUROLOGICAL: Gross neurological examination did not reveal any focal deficits. SKIN: No rashes. no petechiae. - Labs CBC & Chem 7: 08/08/19 05:31 08/08/19 05:31 Labs: Abnormal Lab Results - Last 24 Hours (Table) 08/07/19 08/08/19 08/08/19 Range/Units 09:45 05:31 05:31 RBC 3.34 L (3.80-5.40) m/uL Hgb 10.5 L D (11.4-16.0) gm/dL Hct 33.8 L (34.0-46.0) % MCV 101.1 H (80.0-100.0) fL RDW 17.2 H (11.5-15.5) % Sodium 133 L (137-145) mmol/L Chloride 111 H (98-107) mmol/L Carbon Dioxide 16 L (22-30) mmol/L BUN 3 L (7-17) mg/dL Calcium 7.8 L (8.4-10.2) mg/dL Total Bilirubin <0.1 L (0.2-1.3) mg/dL Total Protein 5.1 L (6.3-8.2) g/dL Albumin 2.6 L (3.5-5.0) g/dL Lipase 725 H 573 H (23-300) U/L Assessment and Plan Assessment: -Acute idiopathic pancreatitis in the patient's was previously had continue with IV fluid, Protonix, pain management -Biliary tract dilatation, internal more than external. 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 With known to follow up with GI service -Acute kidney injury likely prerenal, improved -Troponin leak but no cardiac symptoms. Seen by cardiac surgery. For further outpatient workup. Continue with medical therapy -Essential hypertension -Bipolar disorder, not in activity -History of Bladder surgery with ileal conduit DVT prophylaxis: Lovenox GI prophylaxis: Protonix Prognosis is guarded
--- NOTE | 2019-08-08 10:08 | P.PN ---
Subjective Progress Note Date: 08/07/19 Principal diagnosis: Abdominal pain, pancreatitis Patient is lying in bed reporting that she is feeling somewhat better. Bowel movement after suppository yesterday. No nausea or vomiting. Objective - Vital Signs Vital signs: Vital Signs Temp 97.6 F 08/07/19 13:00 Pulse 87 08/07/19 13:00 Resp 18 08/07/19 13:00 BP 107/71 08/07/19 13:00 Pulse Ox 99 08/07/19 13:00 Intake & Output 08/06/19 08/07/19 08/07/19 18:59 06:59 18:59 Intake Total 960 830 940 Balance 960 830 940 Intake: IV 240 940 Sodium Chloride 0.9% 1, 240 940 000 ml @ 120 mls/hr IV . Q8H20M [facility] Rx#:[id number] Intake, IV Titration 960 Amount Sodium Chloride 0.9% 1, 960 000 ml @ 120 mls/hr IV . Q8H20M [facility] Rx#:[id number] Oral 590 Other: Voiding Method Ileal Conduit (Right) Ileal Conduit (Right) Ileal Conduit (Right) - Exam On physical examination, patient appears comfortable in no apparent distress. HEAD: Normocephalic, atraumatic. EYES: No scleral icterus. No conjunctival injection. MOUTH: No lesions, tongue midline. NECK: Trachea midline, no gross abnormalities. ABDOMEN: Soft, urostomy noted intact. Bowel sounds are positive. No organomegaly. No guarding or rigidity. EXTREMITIES: No pedal edema. SKIN: No rashes, no jaundice. NEUROLOGIC: Alert and oriented x3. No focal deficits. - Labs CBC & Chem 7: 08/08/19 05:31 08/08/19 05:31 Labs: Abnormal Lab Results - Last 24 Hours (Table) 08/07/19 Range/Units 09:45 Lipase 725 H (23-300) U/L Assessment and Plan (1) Acute pancreatitis Narrative/Plan: 58-year-old female presenting with complaints of nausea, retching, vomiting, weakness and abdominal pain. Found to have markedly elevated lipase at 2314 with amylase elevated at 264. Liver enzymes within normal limits with total bilirubin 0.4, alkaline phosphatase 119, AST 22 and ALT 14. No acute findings on computed tomography scan of the abdomen but given patient's reports of abdominal pain in association with nausea and elevated lipase patient is being treated for acute uncomplicated pancreatitis. Prior episode in the past with no trigger found at that time. She reports prior history of cholecystectomy. She denies any excessive alcohol use. 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
[2019-08-08] MEDS: ONDANSETRON 4 MG/2 ML VIAL IVP PRN (10:59)
[2019-08-08] MEDS: FLUTICASONE 50MCG/SPRAY NASAL 16GM EA NOSTRIL SCH (10:59)
[2019-08-08] MEDS: BUTALB/APAP/CAFF 50-325-40MG TAB PO PRN (10:59)
[2019-08-08] MEDS: DIPHENOX-ATROP 2.5-0.025 MG 1 EACH TAB PO PRN (17:44)
--- NOTE | 2019-08-08 19:55 | P.PN ---
Subjective Progress Note Date: 08/08/19 Principal diagnosis: Abdominal pain, pancreatitis Patient is lying in bed reporting that she is feeling somewhat better. She has been able to tolerate oral for diet. Abdominal pain slowly improving. Objective - Vital Signs Vital signs: Vital Signs Temp 97.4 F L 08/08/19 03:59 Pulse 99 08/08/19 07:35 Resp 16 08/08/19 03:59 BP 123/84 08/08/19 03:59 Pulse Ox 99 08/08/19 07:26 Intake & Output 08/07/19 08/08/19 08/08/19 18:59 06:59 18:59 Intake Total 940 2030 Output Total 1000 Balance 940 2030 -1000 Intake: IV 940 480 Sodium Chloride 0.9% 1, 940 480 000 ml @ 120 mls/hr IV . Q8H20M [facility] Rx#:[id number] Intake, IV Titration 960 Amount Sodium Chloride 0.9% 1, 960 000 ml @ 120 mls/hr IV . Q8H20M [facility] Rx#:[id number] Oral 590 Output: Urine 1000 Other: Voiding Method Ileal Conduit (Right) Ileal Conduit (Right) - Exam On physical examination, patient appears comfortable in no apparent distress. HEAD: Normocephalic, atraumatic. EYES: No scleral icterus. No conjunctival injection. MOUTH: No lesions, tongue midline. NECK: Trachea midline, no gross abnormalities. ABDOMEN: Soft, urostomy noted intact. Bowel sounds are positive. No organomeg tara. No guarding or rigidity. EXTREMITIES: No pedal edema. SKIN: No rashes, no jaundice. NEUROLOGIC: Alert and oriented x3. No focal deficits. - Labs CBC & Chem 7: 08/08/19 05:31 08/08/19 05:31 Labs: Abnormal Lab Results - Last 24 Hours (Table) 08/08/19 08/08/19 Range/Units 05:31 05:31 RBC 3.34 L (3.80-5.40) m/uL Hgb 10.5 L D (11.4-16.0) gm/dL Hct 33.8 L (34.0-46.0) % MCV 101.1 H (80.0-100.0) fL RDW 17.2 H (11.5-15.5) % Sodium 133 L (137-145) mmol/L Chloride 111 H (98-107) mmol/L Carbon Dioxide 16 L (22-30) mmol/L BUN 3 L (7-17) mg/dL Calcium 7.8 L (8.4-10.2) mg/dL Total Bilirubin <0.1 L (0.2-1.3) mg/dL Total Protein 5.1 L (6.3-8.2) g/dL Albumin 2.6 L (3.5-5.0) g/dL Lipase 573 H (23-300) U/L Assessment and Plan (1) Acute pancreatitis Narrative/Plan: 58-year-old female presenting with complaints of nausea, retching, vomiting, weakness and abdominal pain. Found to have markedly elevated lipase at 2314 with amylase elevated at 264. Liver enzymes within normal limits with total bilirubin 0.4, alkaline phosphatase 119, AST 22 and ALT 14. No acute findings on computed tomography scan of the abdomen but given patient's reports of abdominal pain in association with nausea and elevated lipase patient is being treated for acute uncomplicated pancreatitis. Prior episode in the past with no trigger found at that time. She reports prior history of cholecystectomy. She denies any excessive alcohol use. 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
[2019-08-08] MEDS: FAMOTIDINE 20 MG TAB PO SCH (21:09)
[2019-08-08] MEDS: traZODone HCL 100 MG TAB PO SCH (21:10)
[2019-08-09] MEDS: HYDROmorphone 1 MG/ML 1 ML SYRINGE IVP PRN ×2 (04:57→08:24)
[2019-08-09] MEDS: SODIUM CHLORIDE 0.9% 1,000 ML IV SCH ×3 (05:05→20:28)
[2019-08-09 06:19] LABS: Anisocytosis Slight; Basophils % (A) 1 %; Eosinophils # (A) 0.3 k/uL (0-0.7); Eosinophils % (A) 7 %; HCT 37.7 % (34.0-46.0); HGB 11.4 gm/dL (11.4-16.0); Hypochromasia Marked; Lymphocytes # (A) 0.8 k/uL (1.0-4.8); Lymphocytes % (A) 15 %; MCH 31.1 pg (25.0-35.0); MCHC 30.3 g/dL (31.0-37.0); MCV 102.5 fL (80.0-100.0); Macrocytosis Moderate; Mean Platelet Volume 7.3; Monocytes # (A) 0.3 k/uL (0-1.0); Monocytes % (A) 6 %; Neutrophils # (A) 3.6 k/uL (1.3-7.7); Neutrophils % (A) 71 %; Platelet Count 363 k/uL (150-450); RBC 3.68 m/uL (3.80-5.40); RDW 17.5 % (11.5-15.5)
[2019-08-09 06:41] LABS: ALT 11 U/L (4-34); AST 16 U/L (14-36); African American GFR (CKD) >90 (>60 ml/min/1.73 sqM); Albumin 2.8 g/dL (3.5-5.0); Alkaline Phosphatase 76 U/L (38-126); Anion Gap 5 mmol/L; Blood Urea Nitrogen 4 mg/dL (7-17); Calcium 7.9 mg/dL (8.4-10.2); Carbon Dioxide 18 mmol/L (22-30); Chloride 113 mmol/L (98-107); Glucose 84 mg/dL (74-99); Non-African American GFR(CKD) >90 (>60 ml/min/1.73 sqM); Potassium 3.9 mmol/L (3.5-5.1); Sodium 136 mmol/L (137-145); Total Bilirubin 0.1 mg/dL (0.2-1.3); Total Protein 5.5 g/dL (6.3-8.2)
[2019-08-09] MEDS: ASPIRIN 81 MG PO SCH (08:09)
[2019-08-09] MEDS: ONDANSETRON 4 MG/2 ML VIAL IVP PRN (08:09)
[2019-08-09] MEDS: busPIRone HCl 5 MG TAB PO SCH ×3 (08:09→23:02)
[2019-08-09] MEDS: ENOXAPARIN 40 MG/0.4 ML SYRINGE SQ SCH (08:09)
[2019-08-09] MEDS: LISINOPRIL 20 MG TAB PO SCH (08:10)
[2019-08-09] MEDS: PROMETHAZINE 25 MG TAB PO SCH ×2 (08:11→20:44)
[2019-08-09] MEDS: METOPROLOL TARTRATE 25 MG TAB PO SCH ×2 (08:11→20:44)
[2019-08-09] MEDS: PANTOPRAZOLE 40 MG/10 ML VIAL IVP SCH ×2 (08:11→20:44)
[2019-08-09] MEDS: DULoxetine HCL 60 MG CAPSULE.DR PO SCH ×2 (08:11→20:44)
[2019-08-09] MEDS: ATORVASTATIN 40 MG TAB PO SCH (08:11)
[2019-08-09] MEDS: carBAMazepine 200 MG TAB PO SCH ×2 (08:12→20:45)
[2019-08-09] MEDS: FLUTICASONE 50MCG/SPRAY NASAL 16GM EA NOSTRIL SCH (08:13)
[2019-08-09] MEDS: DIPHENOX-ATROP 2.5-0.025 MG 1 EACH TAB PO PRN (08:24)
[2019-08-09] MEDS: ALBUTEROL NEBULIZED 2.5 MG/3 ML INHALATION SCH (08:58)
[2019-08-09] MEDS ORDERED: HYDROcodone/APAP 5-325MG 1 EACH TAB PO SCH (09:02)
[2019-08-09] MEDS ORDERED: DICYCLOMINE 20 MG TAB PO STA (09:03)
--- NOTE | 2019-08-09 09:06 | P.PN ---
Subjective This is a 58-year-old patient of Dr. Bolanos. Chronic stable medical conditions include hypertension, obesity with previous bariatric surgery, anxiety disorder, bipolar disorder, hypertension, chronic back pain,. Patient had repeated blood infection with UTI and a chronic Storey catheter for 2 years. underwent partial bladder resection on January 08, 2019 [facility]. urostomy was created. Subsequently bilateral kidney stents were removed. Patient now presents with nausea vomiting predominantly dry heaving for about 6 days. Having upper abdominal epigastric pain going to the back. Denies any fever or chills. Not able to keep much down. Tired rundown. Occasional bowel movement. Admitted-with acute pancreatitis. Made nothing by mouth. Start on IV fluids. Patient also had positive troponins. No cardiac symptoms.-Not felt to be acute Sylvester syndrome. Today-. Remains on clear liquids. Still having epigastric discomfort. No fever no chills. 08/07/2019 Patient is awake and alert, in bed comfortable. She tolerated her liquid diet but she denies nausea vomiting, she still complaining from abdominal pain stating that's is about 8.5-9/10 in severity however significantly improved compared to admission. Yesterday she had laxative suppository and since then this morning she had some good bowel movement. Her blood pressure on the low normal signs and this morning it was 100/66, she is also normal saline and 120 m L per hour. She is on 3 blood pressure medication and we going to hold Norvasc and continue with lisinopril and metoprolol Patient feels hungry and wants her diet to be advanced. When asked she does not know why she takes Tegretol at home, she denies history of seizure but could be due to her bipolar disorder Abdominal ultrasound showing biliary dilatation and recommended MRCP by radiologist however when asked patient has neurostimulator for her back pain. We got to follow up with GI service Discussed with staff 08/08/2019 Patient still complaining from same abdominal pain, however she needs her diet slowly because she has nausea however she is on antiemetic medication. Patient denies vomiting. She had bowel movement yesterday after suppository. She is passing gases. She is able to walk in the room with no difficulties. Radiologist recommended MRCP for her dilated biliary tract, however MRI cannot be done because of her neurostimulator, follow-up with GI team for further recommendation 08/09/2019 Patient states that her abdominal pain still there but improved since admission, she still have some nausea. And today she reports diarrhea although yesterday told me she has 2 bowel movements with suppositories. Patient expected to be discharged today since she's been cleared by GI service however due to her new development of diarrhea we will monitor her one day and check the stool for C. diff Objective - Vital Signs Vital signs: Vital Signs Temp 98.0 F 08/09/19 05:00 Pulse 99 08/09/19 08:10 Resp 16 08/09/19 05:00 BP 114/76 08/09/19 08:10 Pulse Ox 98 08/09/19 05:00 Intake & Output 08/08/19 08/09/19 08/09/19 18:59 06:59 18:59 Intake Total 540 1550 Output Total 4200 2600 Balance -3660 -1050 Intake: Intake, IV Titration 960 Amount Sodium Chloride 0.9% 1, 960 000 ml @ 120 mls/hr IV . Q8H20M [facility] Rx#:[id number] Oral 540 590 Output: Urine 4200 2600 Other: Voiding Method Ileal Conduit (Right) Ileal Conduit (Right) # Bowel Movements 1 - Exam GENERAL: The patient is alert and oriented x3, not in any acute distress. Well developed, well nourished. HEENT: Pupils are round and equally reacting to light. EOMI. No scleral icterus. No conjunctival pallor. Normocephalic, atraumatic. No pharyngeal erythema. No thyromegaly. CARDIOVASCULAR: S1 and S2 present. No murmurs, rubs, or gallops. PULMONARY: Chest is clear to auscultation, no wheezing or crackles. -ABDOMEN: Soft, epigastric tenderness, no rebound tenderness. nondistended, normoactive bowel sounds. No palpable organomegaly. urostomy bag-with clear urine MUSCULOSKELETAL: No joint swelling or deformity. EXTREMITIES: No cyanosis, clubbing, or pedal edema. NEUROLOGICAL: Gross neurological examination did not reveal any focal deficits. SKIN: No rashes. no petechiae. - Labs CBC & Chem 7: 08/09/19 05:56 08/09/19 05:56 Labs: Abnormal Lab Results - Last 24 Hours (Table) 08/09/19 08/09/19 Range/Units 05:56 05:56 RBC 3.68 L (3.80-5.40) m/uL MCV 102.5 H (80.0-100.0) fL MCHC 30.3 L (31.0-37.0) g/dL RDW 17.5 H (11.5-15.5) % Lymphocytes # 0.8 L (1.0-4.8) k/uL Sodium 136 L (137-145) mmol/L Chloride 113 H (98-107) mmol/L Carbon Dioxide 18 L (22-30) mmol/L BUN 4 L (7-17) mg/dL Calcium 7.9 L (8.4-10.2) mg/dL Total Bilirubin 0.1 L (0.2-1.3) mg/dL Total Protein 5.5 L (6.3-8.2) g/dL Albumin 2.8 L (3.5-5.0) g/dL Lipase 534 H (23-300) U/L Assessment and Plan Assessment: -Acute idiopathic pancreatitis. Discontinue IV fluid, encourage oral hydration. Continue with Protonix, pain management. But because of her diarrhea we will check for C. diff and monitor -Biliary tract dilatation, internal more than external. No need for MRCP in view of normal liver enzymes by GI service -Acute kidney injury likely prerenal, resolved -Troponin leak but no cardiac symptoms. Seen by cardiac surgery. For further outpatient workup. Continue with medical therapy -Essential hypertension -Bipolar disorder, not in activity -History of Bladder surgery with ileal conduit DVT prophylaxis: Lovenox GI prophylaxis: Protonix Prognosis is guarded Possible discharge in 2448 hrs.
[2019-08-09] MEDS: HYDROcodone/APAP 5-325MG 1 EACH TAB PO PRN (14:52)
[2019-08-09] MEDS: BUTALB/APAP/CAFF 50-325-40MG TAB PO PRN (15:48)
[2019-08-09] MEDS ORDERED: ALPRAZolam 0.5 MG TAB PO STA (15:59)
[2019-08-09 20:43] VITALS: RESP 16
[2019-08-09] MEDS: traZODone HCL 100 MG TAB PO SCH (20:44)
[2019-08-09] MEDS: FAMOTIDINE 20 MG TAB PO SCH (20:45)
[2019-08-10] MEDS: BUTALB/APAP/CAFF 50-325-40MG TAB PO PRN (03:38)
[2019-08-10 05:38] VITALS: TEMP 97.4
[2019-08-10] MEDS: SODIUM CHLORIDE 0.9% 1,000 ML IV SCH ×2 (06:54→08:49)
[2019-08-10] MEDS: METOPROLOL TARTRATE 25 MG TAB PO SCH (06:56)
--- NOTE | 2019-08-10 08:22 | P.DS ---
Providers Date of admission: 08/04/19 13:56 Attending physician: Maurilio Zhang Consults: 08/05/19 04:23 Consult Physician Routine Consulting Provider: Meagan Brantley Consult Reason/Comments: Elevated trop Do you want consulting provider notified?: Yes, Notify in am Primary care physician: Brenden Cici [facility] Course: Diagnoses: -Acute idiopathic pancreatitis -Biliary tract dilatation, internal more than external. -Sinusitis with postnasal drip -Acute kidney injury likely prerenal, improved -Troponin leak but no cardiac symptoms. -Essential hypertension -Bipolar disorder, not in activity -History of Bladder surgery with ileal conduit Hospital course: This is a 58-year-old patient of Dr. Bolanos. Chronic stable medical conditions include hypertension, obesity with previous bariatric surgery, anxiety disorder, bipolar disorder, hypertension, chronic back pain,. Patient had repeated blood infection with UTI and a chronic Storey catheter for 2 years. underwent partial bladder resection on January 08, 2019 [facility]. urostomy was created. Subsequently bilateral kidney stents were removed. Patient now presents with nausea vomiting for about 6 days. Having upper abdominal epigastric pain going to the back. Patient found to have acute pancreatitis with elevated lipase up to 1325, she was treated with IV fluids, pain management and bowel rest as well as Protonix. Patient has been evaluated by manager ems. Patient showed interval improvement and on the day of discharge patient is tolerating diet, no nausea vomiting, having regular bowel movement and abdominal pain is significantly improved and patient does not want pain medication upon discharge. Workup for the cause of pancreatitis was unrevealing including normal RICHY and IgG4. for her biliary dilatation No need for MRCP in view of normal liver enzymes as per GI team. Also patient found to have troponin leak but no evidence of cardiac injury. Patient has been evaluated by skoog operator recommended to continue with medical treatment with aspirin, statin and beta emma with a recommendation for outpatient follow-up for possible stress test in the office in 1-2 weeks. Patient agrees with her appointment with Dr. Gutiérrez The day of discharge patient has no chest pain no dyspnea, no change in urine habits. No fever. Patient wants to go home. However she has some sinusitis and postnasal drip and asking for some medicine to help her with that, patient was started on Claritin and 1 dose of pseudoephedrine Patient was cleared for discharge by gastroenterology and cardiology services Problems and management plan were discussed with the patient and he verbalized understanding and acceptance Patient was found stable and can be discharged home however he needs follow-up as an outpatient. Patient was instructed to follow up with PCP Dr. Cici Wilcox within one week and patient agrees. Also patient agrees with appointment with Dr. Gutiérrez on 08/18. Also patient agrees with Dr. Jackman manager ems appointment on 08/24 -Gen: patient is a AAOx3, no distress, mild sinus tenderness CVS: S1-S2, RRR, no murmur Lungs: B/L CTA, no wheezing -Abdomen: soft, no distention, mild epigastric tenderness with no rebound tenderness or guarding and significantly improved, positive bowel sounds Extremity: no leg edema or induration Time spent more than 35 minutes Plan - Discharge Summary Discharge Rx Participant: No New Discharge Prescriptions: No Action carBAMazepine [TEGretol] 400 mg PO BID SUMAtriptan SUCCINATE [Imitrex] 100 mg PO BID PRN PRN Reason: Migraine Headache HYDROcodone/APAP 10-325MG [[place] 10-325] 1 tab PO TID DULoxetine HCL [Cymbalta] 60 mg PO BID busPIRone HCL 15 mg PO TID Lisinopril [Zestril] 40 mg PO DAILY Metoprolol Tartrate 25 mg PO BID ALPRAZolam [Xanax] 1 mg PO QID Fluticasone Nasal [place] [Flonase Nasal [place]] 1 spray EA NOSTRIL DAILY Promethazine HCl 25 mg PO BID Diphenoxylate HCl/Atropine [Lomotil 2.5-0.025 mg Tablet] 1 tab PO BID Dicyclomine HCl 20 mg PO TID PRN PRN Reason: Pain Albuterol Inhaler [Ventolin Hfa Inhaler] 2 puff INHALATION RT-DAILY amLODIPine [Norvasc] 10 mg PO DAILY Butalb/APAP/Caff 50-325-40Mg [Fioricet 50-325-40] 1 tab PO Q4H PRN PRN Reason: Migraine Headache traZODone HCL [Desyrel] 100 mg PO HS Discharge Medication List DULoxetine HCL [Cymbalta] 60 mg PO BID 03/21/16 [History] HYDROcodone/APAP 10-325MG [[place] 10-325] 1 tab PO TID 03/21/16 [History] SUMAtriptan SUCCINATE [Imitrex] 100 mg PO BID PRN 03/21/16 [History] carBAMazepine [TEGretol] 400 mg PO BID 03/21/16 [History] Lisinopril [Zestril] 40 mg PO DAILY 02/02/19 [History] Metoprolol Tartrate 25 mg PO BID 02/02/19 [History] busPIRone HCL 15 mg PO TID 02/02/19 [History] ALPRAZolam [Xanax] 1 mg PO QID 04/20/19 [History] Dicyclomine HCl 20 mg PO TID PRN 04/20/19 [History] Diphenoxylate HCl/Atropine [Lomotil 2.5-0.025 mg Tablet] 1 tab PO BID 04/20/19 [History] Fluticasone Nasal [place] [Flonase Nasal [place]] 1 spray EA NOSTRIL DAILY 04/20/19 [History] Promethazine HCl 25 mg PO BID 04/20/19 [History] Albuterol Inhaler [Ventolin Hfa Inhaler] 2 puff INHALATION RT-DAILY 08/04/19 [History] Butalb/APAP/Caff 50-325-40Mg [Fioricet 50-325-40] 1 tab PO Q4H PRN 08/04/19 [History] amLODIPine [Norvasc] 10 mg PO DAILY 08/04/19 [History] traZODone HCL [Desyrel] 100 mg PO HS 08/04/19 [History] Follow up Appointment(s)/Referral(s): Ren Christopher MD [STAFF PHYSICIAN] - 08/19/19 10:30 am Brenden Bolanos MD [Primary Care Provider] - 1-2 days Angeline Jackman MD [STAFF PHYSICIAN] - 08/25/19 1:15 pm (Concert Singer, for your pancreatitis and biliary dilatation)
[2019-08-10 08:37] VITALS: BP 123/84
[2019-08-10] MEDS: busPIRone HCl 5 MG TAB PO SCH (08:46)
[2019-08-10] MEDS: PROMETHAZINE 25 MG TAB PO SCH (08:46)
[2019-08-10] MEDS: carBAMazepine 200 MG TAB PO SCH (08:46)
[2019-08-10] MEDS: LISINOPRIL 20 MG TAB PO SCH (08:46)
[2019-08-10] MEDS: ASPIRIN 81 MG PO SCH (08:46)
[2019-08-10] MEDS: ATORVASTATIN 40 MG TAB PO SCH (08:46)
[2019-08-10] MEDS: DULoxetine HCL 60 MG CAPSULE.DR PO SCH (08:46)
[2019-08-10] MEDS: ENOXAPARIN 40 MG/0.4 ML SYRINGE SQ SCH (08:47)
[2019-08-10] MEDS: PANTOPRAZOLE 40 MG/10 ML VIAL IVP SCH (08:48)
[2019-08-10] MEDS: FLUTICASONE 50MCG/SPRAY NASAL 16GM EA NOSTRIL SCH (08:48)
[2019-08-10] MEDS ORDERED: PSEUDOEPHEDRINE 30 MG TAB PO ONE (09:00)
[2019-08-10] MEDS ORDERED: LORATADINE 10 MG TAB PO SCH (09:00)
[2019-08-10] MEDS: ALBUTEROL NEBULIZED 2.5 MG/3 ML INHALATION SCH (09:05)
[2019-08-10 09:14] VITALS: PULSE 90
[2019-08-10] MEDS: HYDROcodone/APAP 5-325MG 1 EACH TAB PO PRN (09:57)
== END 2019-08-10 10:52 | disposition home or self-care (01) | DRG 439 ==
LOC: EC 11:51 → 5NMEDONC 13:56
PROVIDERS: ADMIT Hospitalist; ATTEND Hospitalist
DX: K85.00 Idiopathic acute pancreatitis without necrosis or infection (principal); N17.9 Acute kidney failure, unspecified; E87.2 Acidosis; K83.8 Other specified diseases of biliary tract; E87.6 Hypokalemia; F31.9 Bipolar disorder, unspecified; F41.1 Generalized anxiety disorder; G89.29 Other chronic pain; I10 Essential (primary) hypertension; K21.9 Gastro-esophageal reflux disease without esophagitis; R09.82 Postnasal drip; R19.7 Diarrhea, unspecified; R79.89 Other specified abnormal findings of blood chemistry; M54.9 Dorsalgia, unspecified; J32.9 Chronic sinusitis, unspecified; Z11.59 Encounter for screening for other viral diseases; Z79.899 Other long term (current) drug therapy; Z87.891 Personal history of nicotine dependence; Z90.49 Acquired absence of other specified parts of digestive tract; Z90.710 Acquired absence of both cervix and uterus; Z91.81 History of falling; Z98.84 Bariatric surgery status; Z98.51 Tubal ligation status; Z90.6 Acquired absence of other parts of urinary tract; Z87.440 Personal history of urinary (tract) infections; Z81.1 Family history of alcohol abuse and dependence
CPT/HCPCS: 36415; 71045; 74177; 76700; 80048; 80053; 80061; 81001; 82150; 82247; 82248; 82787; 83690; 83880; 84075; 84450; 84460; 84484; 85025; 85610; 85730; 86038; 87635; 93005; 93306; 94640; 94760; 96361; 96374; 96375; 99285

== ENCOUNTER 2019-12-14 11:10 | Inpatient (IN) | payer MEDICARE, OTHER ==
[2019-12-14] MEDS ORDERED: ONDANSETRON 4 MG/2 ML VIAL IVP STA (11:33)
[2019-12-14] MEDS ORDERED: SODIUM CHLORIDE 0.9% 1,000 ML IV STA ×2 (11:33)
[2019-12-14] MEDS ORDERED: MORPHINE SULFATE 4 MG/ML SYRINGE IV STA (11:33)
--- NOTE | 2019-12-14 11:38 | ED ---
Abdominal Pain HPI - General Source: patient, RN notes reviewed, old records reviewed Mode of arrival: ambulatory Limitations: no limitations <Venus Waller - Last Filed: 12/14/19 15:45> <Bird Devlin - Last Filed: 12/14/19 16:02> - General Chief Complaint: Abdominal Pain Stated Complaint: chest pain Time Seen by Provider: 12/14/19 11:16 - History of Present Illness Initial Comments: Patient is a 59-year-old female who presents emergency department today for evaluation for upper abdominal pain radiating towards her back. She reports it feels like a vice rappelled to squeezing on her abdomen. Patient has extensive surgical history including cholecystectomy as well as Patient does have a colostomy. Patient states that she feels like this is her previous bouts of pancreatitis. Patient states that she has been feeling sick with nausea and dry heaving for the past week. She's been laying in bed most of the time. Patient states that she's had morbid diarrhea loose stool output in her ostomy site. She states that her urine is very dark. (Venus Waller) - Related Data Home Medications Medication Instructions Recorded Confirmed DULoxetine HCL [Cymbalta] 60 mg PO BID 03/21/16 12/14/19 HYDROcodone/APAP 10-325MG [[place] 1 tab PO TID 03/21/16 12/14/19 10-325] SUMAtriptan SUCCINATE [Imitrex] 100 mg PO BID PRN 03/21/16 12/14/19 carBAMazepine [TEGretol] 400 mg PO BID 03/21/16 12/14/19 Metoprolol Tartrate 25 mg PO BID 02/02/19 12/14/19 busPIRone HCL 15 mg PO TID 02/02/19 12/14/19 lisinopriL [Zestril] 40 mg PO DAILY 02/02/19 12/14/19 ALPRAZolam [Xanax] 1 mg PO QID 04/20/19 12/14/19 Dicyclomine HCl 20 mg PO TID PRN 04/20/19 12/14/19 Fluticasone Nasal [place] [Flonase 1 spray EA NOSTRIL DAILY 04/20/19 12/14/19 Nasal [place]] Promethazine HCl 25 mg PO BID 04/20/19 12/14/19 Albuterol Inhaler [Ventolin Hfa 2 puff INHALATION RT-DAILY 08/04/19 12/14/19 Inhaler] Butalb/APAP/Caff 50-325-40Mg 1 tab PO Q4H PRN 08/04/19 12/14/19 [Fioricet 50-325-40] traZODone HCL [Desyrel] 100 mg PO HS 08/04/19 12/14/19 Pantoprazole [Protonix] 40 mg PO DAILY 12/14/19 12/14/19 Pravastatin Sodium [Pravachol] 10 mg PO DAILY 12/14/19 12/14/19 Tiotropium 18 Mcg/Puff [Spiriva] 1 puff INHALATION RT-DAILY 12/14/19 12/14/19 Previous Rx's Medication Instructions Recorded Aspirin 81 mg PO DAILY #30 chew 08/10/19 Famotidine [Pepcid] 20 mg PO HS #30 tab 08/10/19 Ondansetron [Zofran] 4 mg PO Q8HR PRN #20 tab 08/10/19 Allergies Allergy/AdvReac Type Severity Reaction Status Date / Time No Known Allergies Allergy Verified 12/14/19 11:52 Review of Systems ROS Other: All systems not noted in ROS Statement are negative. <Venus Waller - Last Filed: 12/14/19 15:45> ROS Other: All systems not noted in ROS Statement are negative. <Bird Devlin - Last Filed: 12/14/19 16:02> ROS Statement: Those systems with pertinent positive or pertinent negative responses have been documented in the HPI. Past Medical History Past Medical History: Blood Disorder, Hypertension Additional Past Medical History / Comment(s): past Obesity with previous bariatric surgery, fluctuating body weight, endometreosis,general anxiety disorder, bipolar disorder, hypertension, chronic back pain, history of iron deficiency,"low rbc's" history of anemia requiring blood transfusions, uti,falls and in may with fall had fx to lt hip but no sx, dizzy spells, History of Any Multi-Drug Resistant Organisms: None Reported Past Surgical History: Appendectomy, Bariatric Surgery, Bladder Surgery, Section, Cholecystectomy, Hysterectomy, Tubal Ligation Additional Past Surgical History / Comment(s): bladder suspension, gastric bypass, colon volvulus had exporatory lap w/lysis of adhesions and rt colectomy Past Anesthesia/Blood Transfusion Reactions: No Reported Reaction Additional Past Anesthesia/Blood Transfusion Reaction / Comment(s): blood trandfusion- no reaction Past Psychological History: Anxiety, Bipolar, Depression Smoking Status: Current every day smoker Past Alcohol Use History: Occasional Past Drug Use History: None Reported - Past Family History Mother Family Medical History: No Reported History Additional Family Medical History / Comment(s): no history Father Family Medical History: No Reported History Additional Family Medical History / Comment(s): from alcoholism <Venus Waller - Last Filed: 12/14/19 15:45> General Exam Limitations: no limitations General appearance: alert, in no apparent distress Head exam: Present: atraumatic, normocephalic, normal inspection Eye exam: Present: normal appearance, PERRL, EOMI. Absent: scleral icterus, conjunctival injection, periorbital swelling ENT exam: Present: normal exam, mucous membranes moist Neck exam: Present: normal inspection. Absent: tenderness, meningismus, lymphadenopathy Respiratory exam: Present: normal lung sounds bilaterally. Absent: respiratory distress, wheezes, rales, rhonchi, stridor Cardiovascular Exam: Present: regular rate, normal rhythm, normal heart sounds. Absent: systolic murmur, diastolic murmur, rubs, gallop, clicks GI/Abdominal exam: Present: tenderness, guarding (epigastric ), normal bowel sounds. Absent: soft, distended, rebound, rigid Extremities exam: Present: normal inspection, full ROM, normal capillary refill. Absent: tenderness, pedal edema, joint swelling, calf tenderness Back exam: Present: normal inspection Neurological exam: Present: alert, oriented X3, CN II-XII intact Psychiatric exam: Present: normal affect, normal mood Skin exam: Present: warm, dry, intact, normal color. Absent: rash <Venus Waller - Last Filed: 12/14/19 15:45> - General Exam Comments Initial Comments: 59-year-old female. Patient appears in moderate discomfort. Generally weak. (Venus Waller) Course <Venus Waller - Last Filed: 12/14/19 15:45> Vital Signs 12/14/19 12/14/19 12/14/19 11:13 12:40 13:28 Temperature 98.0 F Pulse Rate 93 82 79 Respiratory 18 18 16 Rate Blood Pressure 182/115 200/106 185/104 O2 Sat by Pulse 99 98 99 Oximetry 12/14/19 15:08 Temperature Pulse Rate 92 Respiratory 18 Rate Blood Pressure 158/88 O2 Sat by Pulse 99 Oximetry - Reevaluation(s) Reevaluation #1: 12/14/19 14:16 Patient was found be hypertensive. She states she's not been on her blood pressure medication for the past week. (Venus Waller) Medical Decision Making - Lab Data Result diagrams: 12/14/19 11:47 12/14/19 11:47 - Radiology Data Radiology results: report reviewed <Venus Waller - Last Filed: 12/14/19 15:45> - Lab Data Result diagrams: 12/14/19 11:47 12/14/19 11:47 <Bird Devlin - Last Filed: 12/14/19 16:02> - Medical Decision Making Patient is a 59-year-old female who presents today with severe upper abdominal pain. She feels like it is a squeezing band on her upper abdomen for the past week. She had nausea and vomiting. Patient appears in significant discomfort. Patient was given IV fluids and lab work obtained. Labs reviewed, amylase lipase were within normal limits as Patient suspect she had pancreatitis. had persistent abdominal pain and ended up going for CT. There is evidence of biliary dilation. Patient may need further evaluation with ERCP. She has had previous cholecystectomy and has ostomy. Patient continued to have severe pain after multiple doses of pain medication. I did discuss with Dr. Devlin from discussed with Dr. Baeza, with consult to GI. (Venus Waller) Patient reevaluated and reexamined by myself, Dr. Devlin. I do agree with NINI sandhu. This includes diagnostic interpretation treatment plan. Patient is resting comfortably in bed stating that second dose of pain medication and starting to improve things. Abdomen is soft with moderate epigastric tenderness. Patient updated on results and plan. Case was discussed in detail with Dr. Zhang, who will admit covered for Dr. Bolanos. Gastroenterology will be placed on consult for probable ERCP. (Bird Devlin) - Lab Data Lab Results 12/14/19 12/14/19 12/14/19 Range/Units 11:47 11:47 11:47 WBC 9.0 (3.8-10.6) k/uL RBC 3.69 L (3.80-5.40) m/uL Hgb 10.6 L (11.4-16.0) gm/dL Hct 35.4 (34.0-46.0) % MCV 95.9 (80.0-100.0) fL MCH 28.9 (25.0-35.0) pg MCHC 30.1 L (31.0-37.0) g/dL RDW 16.8 H (11.5-15.5) % Plt Count 611 H (150-450) k/uL Neutrophils % 75 % Lymphocytes % 13 % Monocytes % 7 % Eosinophils % 3 % Basophils % 1 % Neutrophils # 6.8 (1.3-7.7) k/uL Lymphocytes # 1.1 (1.0-4.8) k/uL Monocytes # 0.7 (0-1.0) k/uL Eosinophils # 0.3 (0-0.7) k/uL Basophils # 0.0 (0-0.2) k/uL Hypochromasia Marked Poikilocytosis Slight Anisocytosis Slight PT 9.6 (9.0-12.0) sec INR 0.9 (<1.2) APTT 21.4 L (22.0-30.0) sec Sodium 131 L (137-145) mmol/L Potassium 4.2 (3.5-5.1) mmol/L Chloride 103 (98-107) mmol/L Carbon Dioxide 20 L (22-30) mmol/L Anion Gap 8 mmol/L BUN 7 (7-17) mg/dL Creatinine 0.74 (0.52-1.04) mg/dL Est GFR (CKD-EPI)AfAm >90 (>60 ml/min/1.73 sqM) Est GFR (CKD-EPI)NonAf 88 (>60 ml/min/1.73 sqM) Glucose 107 H (74-99) mg/dL Plasma Lactic Acid Jaswinder (0.7-2.0) mmol/L Calcium 9.1 (8.4-10.2) mg/dL Total Bilirubin 0.5 (0.2-1.3) mg/dL AST 23 (14-36) U/L ALT 9 (4-34) U/L Alkaline Phosphatase 128 H (38-126) U/L Troponin I (0.000-0.034) ng/mL Total Protein 7.1 (6.3-8.2) g/dL Albumin 4.2 (3.5-5.0) g/dL Amylase 147 H (30-110) U/L Lipase 213 (23-300) U/L Urine Color Urine Appearance (Clear) Urine pH (5.0-8.0) Ur Specific [place] (1.001-1.035) Urine Protein (Negative) Urine Glucose (UA) (Negative) Urine Ketones (Negative) Urine Blood (Negative) Urine Nitrite (Negative) Urine Bilirubin (Negative) Urine Urobilinogen (<2.0) mg/dL Ur Leukocyte Esterase (Negative) Urine RBC (0-5) /hpf Urine WBC (0-5) /hpf Amorphous Sediment (None) /hpf Urine Bacteria (None) /hpf Hyaline Casts (0-2) /lpf 12/14/19 12/14/19 12/14/19 Range/Units 11:47 11:47 12:14 WBC (3.8-10.6) k/uL RBC (3.80-5.40) m/uL Hgb (11.4-16.0) gm/dL Hct (34.0-46.0) % MCV (80.0-100.0) fL MCH (25.0-35.0) pg MCHC (31.0-37.0) g/dL RDW (11.5-15.5) % Plt Count (150-450) k/uL Neutrophils % % Lymphocytes % % Monocytes % % Eosinophils % % Basophils % % Neutrophils # (1.3-7.7) k/uL Lymphocytes # (1.0-4.8) k/uL Monocytes # (0-1.0) k/uL Eosinophils # (0-0.7) k/uL Basophils # (0-0.2) k/uL Hypochromasia Poikilocytosis Anisocytosis PT (9.0-12.0) sec INR (<1.2) APTT (22.0-30.0) sec Sodium (137-145) mmol/L Potassium (3.5-5.1) mmol/L Chloride (98-107) mmol/L Carbon Dioxide (22-30) mmol/L Anion Gap mmol/L BUN (7-17) mg/dL Creatinine (0.52-1.04) mg/dL Est GFR (CKD-EPI)AfAm (>60 ml/min/1.73 sqM) Est GFR (CKD-EPI)NonAf (>60 ml/min/1.73 sqM) Glucose (74-99) mg/dL Plasma Lactic Acid Jas[place]inder 1.0 (0.7-2.0) mmol/L Calcium (8.4-10.2) mg/dL Total Bilirubin (0.2-1.3) mg/dL AST (14-36) U/L ALT (4-34) U/L Alkaline Phosphatase (38-126) U/L Troponin I <0.012 (0.000-0.034) ng/mL Total Protein (6.3-8.2) g/dL Albumin (3.5-5.0) g/dL Amylase (30-110) U/L Lipase (23-300) U/L Urine Color Yellow Urine Appearance Cloudy H (Clear) Urine pH 6.5 (5.0-8.0) Ur Specific [place] 1.016 (1.001-1.035) Urine Protein Trace H (Negative) Urine Glucose (UA) Negative (Negative) Urine Ketones Negative (Negative) Urine Blood Negative (Negative) Urine Nitrite Positive H (Negative) Urine Bilirubin Negative (Negative) Urine Urobilinogen <2.0 (<2.0) mg/dL Ur Leukocyte Esterase Large H (Negative) Urine RBC 1 (0-5) /hpf Urine WBC 7 H (0-5) /hpf Amorphous Sediment Rare H (None) /hpf Urine Bacteria Moderate H (None) /hpf Hyaline Casts 1 (0-2) /lpf - Radiology Data EKG shows normal sinus rhythm with sinus arrhythmia. Anteroseptal infarct age undetermined. Abnormal EKG. Ventricular rate 60 bpm. Pulse 148 ms. She taoism is 92 ms. QT QTc is 380/412 ms. Borderline heart size. Otherwise just chronic changes underlying COPD. Acute process noted. X-ray she has diffuse small air-fluid levels in the midabdomen representing regional ileus or enteritis. Overall noninjected bowel gas pattern given colonic air. Right lower quadrant ostomy. Surgical changes below GE junction. (Venus Waller) Disposition Is patient prescribed a controlled substance at d/c from ED?: No Time of Disposition: 15:48 <Venus Waller - Last Filed: 12/14/19 15:45> <Bird Devlin - Last Filed: 12/14/19 16:02> Clinical Impression: Dilation of biliary tract, Intractable abdominal pain Disposition: ADMITTED IP TO THIS HOSP Condition: Stable Referrals: Brenden Bolanos MD [Primary Care Provider] - 1-2 days
[2019-12-14 12:06] LABS: Anisocytosis Slight; Basophils % (A) 1 %; Eosinophils # (A) 0.3 k/uL (0-0.7); Eosinophils % (A) 3 %; HCT 35.4 % (34.0-46.0); HGB 10.6 gm/dL (11.4-16.0); Hypochromasia Marked; Lymphocytes # (A) 1.1 k/uL (1.0-4.8); Lymphocytes % (A) 13 %; MCH 28.9 pg (25.0-35.0); MCHC 30.1 g/dL (31.0-37.0); MCV 95.9 fL (80.0-100.0); Mean Platelet Volume 6.5; Monocytes # (A) 0.7 k/uL (0-1.0); Monocytes % (A) 7 %; Neutrophils # (A) 6.8 k/uL (1.3-7.7); Neutrophils % (A) 75 %; Platelet Count 611 k/uL (150-450); Poikilocytosis Slight; RBC 3.69 m/uL (3.80-5.40); RDW 16.8 % (11.5-15.5)
[2019-12-14 12:18] LABS: ALT 9 U/L (4-34); AST 23 U/L (14-36); African American GFR (CKD) >90 (>60 ml/min/1.73 sqM); Albumin 4.2 g/dL (3.5-5.0); Alkaline Phosphatase 128 U/L (38-126); Amylase 147 U/L (30-110); Anion Gap 8 mmol/L; Blood Urea Nitrogen 7 mg/dL (7-17); Calcium 9.1 mg/dL (8.4-10.2); Carbon Dioxide 20 mmol/L (22-30); Chloride 103 mmol/L (98-107); Glucose 107 mg/dL (74-99); Non-African American GFR(CKD) 88 (>60 ml/min/1.73 sqM); Sodium 131 mmol/L (137-145); Total Bilirubin 0.5 mg/dL (0.2-1.3); Total Protein 7.1 g/dL (6.3-8.2)
[2019-12-14 12:27] LABS: Potassium 4.2 mmol/L (3.5-5.1)
[2019-12-14 12:36] LABS: INR 0.9 (<1.2); Prothrombin Time 9.6 sec (9.0-12.0)
[2019-12-14 12:41] LABS: Partial Thromboplastin Time 21.4 sec (22.0-30.0)
[2019-12-14] MEDS ORDERED: SODIUM CHLORIDE 0.9% 1,000 ML IV ONE (12:46)
[2019-12-14 12:47] LABS: Amorphous Sediment,Urine Rare /hpf; Appearance,Urine Cloudy (Clear); Bacteria,Urine Moderate /hpf; Bilirubin,Urine Negative (Negative); Blood,Urine Negative (Negative); Color,Urine Yellow; Glucose,Urine (UA) Negative (Negative); Hyaline Casts,Urine 1 /lpf (0-2); Ketones,Urine Negative (Negative); Leukocyte Esterase,Urine Large (Negative); Nitrite,Urine Positive (Negative); PH, Urine 6.5 (5.0-8.0); Protein,Urine Trace (Negative); RBC,Urine 1 /hpf (0-5); Specific Gravity,Urine 1.016 (1.001-1.035); Urobilinogen,Urine <2.0 mg/dL (<2.0); WBC,Urine 7 /hpf (0-5)
--- NOTE | 2019-12-14 13:02 | XR ---
EXAMINATION TYPE: XR chest 2V DATE OF EXAM: 12/14/2019 COMPARISON: 08/05/2019 HISTORY: 59-year-old female with chest and abdominal pain TECHNIQUE: PA and lateral views FINDINGS: Heart borderline enlarged. Aorta and pulmonary vasculature within normal limits. Mild interstitial pr ominence is unchanged. Mild hyperinflation. No consolidation or pleural effusion. Spinal stimulator a rray extending to the mid thoracic spinal canal. IMPRESSION: Borderline heart size. Otherwise, chronic changes, possible underlying COPD, without acute process se en.
--- NOTE | 2019-12-14 13:04 | XR ---
EXAMINATION TYPE: XR KUB DATE OF EXAM: 12/14/2019 Comparison: 10/20/2017 Clinical History: 59-year-old female chest, abdominal pain Findings: Generator device projects at the left SI joint. Spinal stimulator array extending up into the thoraci c spinal canal. Cholecystectomy clips. Surgical nancy below the GE junction. An ostomy is noted at the right lower quadrant. Scattered colonic air with air and stool extending distally to the rectum. Surgical clips in both gin es of the pelvis. Small air-fluid levels in the mid abdomen. No dilated small bowel seen. No evidence for free intraperitoneal air. Impression: 1. A few small air-fluid levels in the mid abdomen could represent a regional ileus or enteritis. Ove rall nonobstructive pattern given the colonic air. 2. Right lower quadrant ostomy. Surgical changes below the GE junction.
[2019-12-14] MEDS ORDERED: LABETALOL 5 MG/ML VIAL MDV IVP STA ×2 (13:34→16:47)
[2019-12-14] MEDS ORDERED: HYDROmorphone 1 MG/ML 1 ML SYRINGE IVP STA ×2 (15:17→16:20)
--- NOTE | 2019-12-14 15:25 | CT ---
EXAMINATION TYPE: CT abdomen pelvis w con DATE OF EXAM: 12/14/2019 COMPARISON: CT 08/04/2019 HISTORY: RUQ pain, nausea, vomiting CT DLP: 538.9 mGycm Automated exposure control for dose reduction was used. TECHNIQUE: Helical acquisition of images from the lung bases through the pelvis have been completed. CONTRAST: Performed without Oral Contrast and with IV Contrast, patient injected with 100 mL of Isovue 300. FINDINGS: Postop changes are noted to the bowel. There is an ostomy in the right lower quadrant. LUNG BASES: No significant abnormality is appreciated. AORTA: No significant abnormality is appreciated. LIVER/GB: The dilated intra and extrahepatic biliary ducts, postcholecystectomy change shows a simila r appearance, there is some slight interval progression in dilation of the biliary system however. PANCREAS: Pancreatic duct shows some progression in dilated appearance as compared to prior to approx imately 5 to 6 mm SPLEEN: No significant abnormality is seen. ADRENALS: No significant abnormality is seen. KIDNEYS: No significant abnormality is seen. REPRODUCTIVE ORGANS: Not seen as on prior BOWEL: No evident bowel obstruction. Postop changes are noted the gastroesophageal junction as on pr ior. Small bowel folds show some areas of thickening fluid-filled appearance. FREE AIR: No Free Air visible. ASCITES: None visible. PELVIC ADENOPATHY: None visualized. RETROPERITONEAL ADENOPATHY: No Retroperitoneal Adenopathy visible. URINARY BLADDER: No significant abnormality is seen. OSSEOUS STRUCTURES: No significant interval change is seen. There is left gluteal generator present, leads are present in the posterior thoracic spinal canal as on prior IMPRESSION: THERE HAS BEEN PROGRESSIVE INTERVAL DILATION OF THE BILIARY SYSTEM, CONSIDER ENDOSCOPY TO EVALUATE FO R AMPULLARY MASS OR DISTAL OBSTRUCTION. POSTOP CHANGES.
[2019-12-14] MEDS ORDERED: IBUPROFEN 400 MG TAB PO PRN (15:49)
[2019-12-14] MEDS ORDERED: ACETAMINOPHEN TAB 325 MG TAB PO PRN (15:49)
[2019-12-14] MEDS ORDERED: MORPHINE SULFATE 4 MG/ML SYRINGE IV PRN (15:49)
[2019-12-14] MEDS ORDERED: NALOXONE 0.4 MG/ML 1 ML VIAL IV PRN (15:49)
[2019-12-14] MEDS ORDERED: ONDANSETRON 4 MG/2 ML VIAL IVP PRN (15:49)
[2019-12-14] MEDS ORDERED: SODIUM CHLORIDE 0.9% 1,000 ML IV SCH (16:00)
[2019-12-14] MEDS: ALPRAZolam 1 MG TAB PO SCH ×2 (17:52→20:57)
[2019-12-14] MEDS: HYDROmorphone 1 MG/ML 1 ML SYRINGE IVP PRN ×2 (20:08→23:12)
--- NOTE | 2019-12-14 20:46 | P.HPIM ---
History of Present Illness H&P Date: 12/14/19 Chief Complaint: Epigastric pain History of presenting complaint: This is a 59-year-old patient of Dr. Bolanos. Chronic stable medical conditions include hypertension, obesity with previous bariatric surgery, , bipolar disorder, hypertension, chronic back pain,. Patient had repeated blood infection with UTI and a chronic Storey catheter for 2 years. underwent partial bladder resection on January 08, 2019 [facility]. urostomy was created. Subsequently bilateral kidney stents were removed. In June of this 2019 patient been admitted with acute idiopathic pancreatitis. Patient now presenting with 1 week of increasing pain in the epigastric area she described as stabbing pain. Also feels like a tight band across the area. Significant nausea. Not able to eat because of the same. Daughter has an appetite. No fever no chills. Computed tomography scan in the ER was nonspecific.. Review of systems: GEN.: tired EYES: None HEENT: None NECK: None RESPIRATORY: None CARDIOVASCULAR: None GASTROINTESTINAL: As above GENITOURINARY: None MUSCULOSKELETAL: Some joint pains LYMPHATICS: None HEMATOLOGICAL: None PSYCHIATRY: Anxious NEUROLOGICAL: None Past medical history to include: Hypertension, obesity with previous bariatric surgery, bipolar disorder, hypertension, chronic back pain, partial bladder resection with the urostomy, pancreatitis, chronic back pain with pain stimulator Social history: Lives alone . Patient smoked for close to 20 years and stopped in 1998. 2 packs a day. Recently started smoking again. No alcohol. Family history: Reviewed, noncontributory to presentation Physical examination: VITAL SIGNS: 98, 93, 18, 180-115, 99% on room air GENERAL: BMI 24.3, sitting up in bed, uncomfortable EYES: Pupils equal. Conjunctiva normal. HEENT: External appearance of nose and ears normal, oral cavity grossly normal. NECK: JVD not raised; masses not palpable. HEART: First and second heart sounds are normal; no edema. LUNGS: Respiratory rate normal; clear to auscultation. ABDOMEN: Soft, epigastric tenderness, no guarding or rigidity, liver spleen not palpable, no masses palpable, midline scar is present, urostomy bag-with clear urine PSYCH: AO - times three. Mood and affect normal NEUROLOGICAL: Cranial nerves grossly intact; no facial asymmetry, power and sensation grossly intact. LYMPHATICS: No lymph nodes palpable in the axilla and neck INVESTIGATIONS, reviewed in the clinical context: White count 9 hemoglobin 10.6 platelets 611 potassium 4.2 sodium 131 creatinine 0.74 amylase 147 lipase 213 UA positive for nitrite leukoesterase WBC EKG tracing personally reviewed by me-normal sinus rhythm with poor R-wave progression Chest x-ray film personally reviewed by me-lungs clear Previous testing: Creatinine was 0.77 on April 24 Assessment: -Acute epigastric pain in a patient for a week. Nausea. No vomiting. Computed tomography scan of the abdomen is unremarkable. Lipase is normal. Patient's had a previous gastric bypass surgery. Several years ago. This could be a low- grade pancreatitis. -Acute metabolic acidosis -Essential hypertension -Bipolar disorder -History of Bladder surgery with ileal conduit -Hyponatremia -Acute UTI with cystitis Plan: We will make the patient nothing by mouth. IV fluids with bicarbonate. Medications to continue. Consult GI and general surgery. DVT prophylaxis. Care was discussed with the patient. Past Medical History Past Medical History: Asthma, Blood Disorder, Chest Pain / Angina, Hearing Disorder / Deafness, Hypertension, Musculoskeletal Disorder, Osteoarthritis (OA), Pneumonia Additional Past Medical History / Comment(s): fluctuating body weight, endometreosis, chronic back pain with pain stimulator, history of iron deficiency,"low rbc's" history of anemia requiring blood transfusions, uti, falls and in may with fall had fx to left hip but no sx, dizzy spells, carpal tunnel History of Any Multi-Drug Resistant Organisms: None Reported Past Surgical History: Appendectomy, Bariatric Surgery, Bladder Surgery, Section, Cholecystectomy, Hysterectomy, Tubal Ligation Additional Past Surgical History / Comment(s): bladder suspension, gastric bypass, colon volvulus had exporatory lap w/lysis of adhesions and rt colectomy, urostomy Past Anesthesia/Blood Transfusion Reactions: No Reported Reaction Additional Past Anesthesia/Blood Transfusion Reaction / Comment(s): blood trandfusion- no reaction Past Psychological History: Anxiety, Bipolar, Depression Additional Psychological History / Comment(s): pt lives alone in 2 story home but she stays on first floor. uses cane or walker-has dizzy spells at times and hx of falls. idc Smoking Status: Current every day smoker Past Alcohol Use History: Occasional Additional Past Alcohol Use History / Comment(s): started smoking at age 16(1976) smoked 2 ppd, quit 1998, restarted smoking recently less than a pack a day Past Drug Use History: None Reported - Past Family History Mother Family Medical History: No Reported History Additional Family Medical History / Comment(s): no history Father Family Medical History: No Reported History Additional Family Medical History / Comment(s): from alcoholism, gout Brother(s) Additional Family Medical History / Comment(s): seizure Medications and Allergies Home Medications Medication Instructions Recorded Confirmed Type DULoxetine HCL [Cymbalta] 60 mg PO BID 03/21/16 12/14/19 History HYDROcodone/APAP 10-325MG [[place] 1 tab PO TID 03/21/16 12/14/19 History 10-325] SUMAtriptan SUCCINATE [Imitrex] 100 mg PO BID PRN 03/21/16 12/14/19 History carBAMazepine [TEGretol] 400 mg PO BID 03/21/16 12/14/19 History Metoprolol Tartrate 25 mg PO BID 02/02/19 12/14/19 History busPIRone HCL 15 mg PO TID 02/02/19 12/14/19 History lisinopriL [Zestril] 40 mg PO DAILY 02/02/19 12/14/19 History ALPRAZolam [Xanax] 1 mg PO QID 04/20/19 12/14/19 History Dicyclomine HCl 20 mg PO TID PRN 04/20/19 12/14/19 History Fluticasone Nasal [place] [Flonase 1 spray EA NOSTRIL DAILY 04/20/19 12/14/19 History Nasal [place]] Promethazine HCl 25 mg PO BID 04/20/19 12/14/19 History Albuterol Inhaler [Ventolin Hfa 2 puff INHALATION RT-DAILY 08/04/19 12/14/19 History Inhaler] Butalb/APAP/Caff 50-325-40Mg 1 tab PO Q4H PRN 08/04/19 12/14/19 History [Fioricet 50-325-40] traZODone HCL [Desyrel] 100 mg PO HS 08/04/19 12/14/19 History Aspirin 81 mg PO DAILY #30 chew 08/10/19 12/14/19 Rx Famotidine [Pepcid] 20 mg PO HS #30 tab 08/10/19 12/14/19 Rx Ondansetron [Zofran] 4 mg PO Q8HR PRN #20 tab 08/10/19 12/14/19 Rx Pantoprazole [Protonix] 40 mg PO DAILY 12/14/19 12/14/19 History Pravastatin Sodium [Pravachol] 10 mg PO DAILY 12/14/19 12/14/19 History Tiotropium 18 Mcg/Puff [Spiriva] 1 puff INHALATION RT-DAILY 12/14/19 12/14/19 History Allergies Allergy/AdvReac Type Severity Reaction Status Date / Time No Known Allergies Allergy Verified 12/14/19 11:52 Physical Exam Vitals: Vital Signs Temp Pulse Pulse Resp BP BP Pulse Ox 12/14/19 20:22 98.0 F 70 17 99 12/14/19 17:21 98 F 71 16 174/99 99 12/14/19 17:00 71 18 159/99 96 12/14/19 16:44 74 18 188/104 98 12/14/19 16:19 84 18 190/99 98 12/14/19 15:08 92 18 158/88 99 12/14/19 13:28 79 16 185/104 99 12/14/19 12:40 82 18 200/106 98 12/14/19 11:13 98.0 F 93 18 182/115 99 Intake and Output 12/14/19 12/14/19 12/14/19 06:59 14:59 22:59 Other: Voiding Method Ileal Conduit (Right) Weight 61.235 kg 60.2 kg Results CBC & Chem 7: 12/14/19 11:47 12/14/19 11:47 Labs: Abnormal Lab Results - Last 24 Hours (Table) 12/14/19 12/14/19 12/14/19 Range/Units 11:47 11:47 11:47 RBC 3.69 L (3.80-5.40) m/uL Hgb 10.6 L (11.4-16.0) gm/dL MCHC 30.1 L (31.0-37.0) g/dL RDW 16.8 H (11.5-15.5) % Plt Count 611 H (150-450) k/uL APTT 21.4 L (22.0-30.0) sec Sodium 131 L (137-145) mmol/L Carbon Dioxide 20 L (22-30) mmol/L Glucose 107 H (74-99) mg/dL Alkaline Phosphatase 128 H (38-126) U/L Amylase 147 H (30-110) U/L Urine Appearance (Clear) Urine Protein (Negative) Urine Nitrite (Negative) Ur Leukocyte Esterase (Negative) Urine WBC (0-5) /hpf Amorphous Sediment (None) /hpf Urine Bacteria (None) /hpf 12/14/19 Range/Units 12:14 RBC (3.80-5.40) m/uL Hgb (11.4-16.0) gm/dL MCHC (31.0-37.0) g/dL RDW (11.5-15.5) % Plt Count (150-450) k/uL APTT (22.0-30.0) sec Sodium (137-145) mmol/L Carbon Dioxide (22-30) mmol/L Glucose (74-99) mg/dL Alkaline Phosphatase (38-126) U/L Amylase (30-110) U/L Urine Appearance Cloudy H (Clear) Urine Protein Trace H (Negative) Urine Nitrite Positive H (Negative) Ur Leukocyte Esterase Large H (Negative) Urine WBC 7 H (0-5) /hpf Amorphous Sediment Rare H (None) /hpf Urine Bacteria Moderate H (None) /hpf Thrombosis Risk Factor Assmnt - Choose All That Apply Other Risk Factors: Yes Each Risk Factor Represents 2 Points: Age 61-74 years Other congenital or acquired thrombophilia - If yes, enter type in comment: No Thrombosis Risk Factor Assessment Total Risk Factor Score: 2 Thrombosis Risk Factor Assessment Level: Low Risk
[2019-12-14] MEDS: METOPROLOL TARTRATE 25 MG TAB PO SCH (20:57)
[2019-12-14] MEDS: DULoxetine HCL 60 MG CAPSULE.DR PO SCH (20:57)
[2019-12-14] MEDS: busPIRone HCl 5 MG TAB PO SCH (20:57)
[2019-12-14] MEDS: carBAMazepine 200 MG TAB PO SCH (20:58)
[2019-12-14] MEDS: DEXTROSE 5%-0.45% NACL 1,000 ML with SODIUM BICARB (1 MEQ/ML) 50 ML IV SCH ×2 (22:21)
[2019-12-15] MEDS: HYDROmorphone 1 MG/ML 1 ML SYRINGE IVP PRN ×7 (02:36→21:22)
[2019-12-15] MEDS: DEXTROSE 5%-0.45% NACL 1,000 ML with SODIUM BICARB (1 MEQ/ML) 50 ML IV SCH ×6 (05:48→21:26)
[2019-12-15] MEDS: DULoxetine HCL 60 MG CAPSULE.DR PO SCH ×2 (08:02→21:19)
[2019-12-15] MEDS: carBAMazepine 200 MG TAB PO SCH ×2 (08:02→21:20)
[2019-12-15] MEDS: lisinopriL 20 MG TAB PO SCH (08:02)
[2019-12-15] MEDS: ALPRAZolam 1 MG TAB PO SCH ×4 (08:02→21:20)
[2019-12-15] MEDS: busPIRone HCl 5 MG TAB PO SCH ×3 (08:02→21:20)
[2019-12-15] MEDS: PANTOPRAZOLE 40 MG/10 ML VIAL IV SCH (08:03)
[2019-12-15] MEDS: METOPROLOL TARTRATE 25 MG TAB PO SCH ×2 (08:07→21:19)
[2019-12-15] MEDS: ALBUTEROL NEBULIZED 2.5 MG/3 ML INHALATION SCH (09:05)
[2019-12-15 09:23] LABS: ALT 8 U/L (4-34); AST 17 U/L (14-36); African American GFR (CKD) >90 (>60 ml/min/1.73 sqM); Albumin 3.1 g/dL (3.5-5.0); Alkaline Phosphatase 89 U/L (38-126); Amylase 83 U/L (30-110); Anion Gap 4 mmol/L; Blood Urea Nitrogen 2 mg/dL (7-17); Calcium 8.3 mg/dL (8.4-10.2); Carbon Dioxide 26 mmol/L (22-30); Chloride 105 mmol/L (98-107); Glucose 121 mg/dL (74-99); Non-African American GFR(CKD) >90 (>60 ml/min/1.73 sqM); Potassium 3.8 mmol/L (3.5-5.1); Sodium 135 mmol/L (137-145); Total Bilirubin 0.2 mg/dL (0.2-1.3); Total Protein 5.6 g/dL (6.3-8.2)
[2019-12-15] MEDS: METOCLOPRAMIDE 5 MG/ML 2 ML VIAL IVP SCH ×2 (13:03→18:27)
[2019-12-15] MEDS: SUMAtriptan succinate 50 MG TAB PO PRN (13:03)
--- NOTE | 2019-12-15 13:23 | P.GSCN ---
<Alejandrina Rey - Last Filed: 12/15/19 13:13> History of Present Illness Consult date: 12/15/19 History of present illness: CHIEF COMPLAINT: Abdominal pain HISTORY OF PRESENT ILLNESS: This is a 59-year-old female with a known past medical history of gastric bypass, right colectomy for a right sided colonic volvulus and known intra-abdominal adhesions. Patient has urostomy due to recurrent blood infections with UTI. She also has a history of chronic pancreatitis, iron deficiency anemia and pancreatitis. Patient presents to the emergency room with complaints of epigastric abdominal pain that radiates to her back. She has had the pain for about a week. She reports the pain is intermi ttent didn't and it can become sharp and squeezing. She has been having dry heaves no actual vomiting. She admits to having chills. Denies fever. And we have been consulted for patient's abdominal pain. PAST MEDICAL HISTORY: See list. PAST SURGICAL HISTORY: See list. MEDICATIONS: See list. ALLERGIES: See list. SOCIAL HISTORY: No illicit drug use. REVIEW OF SYSTEMS: CONSTITUTIONAL: Denies fever or chills. HEENT: Denies blurred vision, vision changes, or eye pain. Denies hemoptysis CARDIOVASCULAR: Denies chest pain or pressure. RESPIRATORY: No shortness of breath. GASTROINTESTINAL: See HPI for pertinent findings HEMATOLOGIC: Denies bleeding disorders. GENITOURINARY: Denies any blood in urine or increased urinary frequency. SKIN: Denies pruitis. Denies rash. PHYSICAL EXAM: VITAL SIGNS: Reviewed GENERAL: Well-developed in no acute distress. HEENT: No sclera icterus. Extraocular movements grossly intact. Moist buccal mucosa. Head is atraumatic, normocephalic. No nasal drainage. ABDOMEN: Soft. Epigastric tenderness to palpation. Nondistended NEUROLOGIC: Alert and oriented. Cranial nerves II through XII grossly intact. LABORATORY DATA: WBC 9.0 hemoglobin 10.6 AST 17 ALT 8 alk phos 128 down to 89 lipase 245 amylase 147 down to 83 IMAGING: Computed tomography scan of the abdomen and pelvis there has been progressive interval dilation of the biliary system. ASSESSMENT: 1. Epigastric abdominal pain 2. Chronic pancreatitis 3. History of gastric bypass PLAN: -No surgical intervention planned -Await GI evaluation and recommendations Physician Automatic Oven Operator note has been reviewed by physician. Signing provider agrees with the documented findings, assessment, and plan of care. Past Medical History Past Medical History: Asthma, Blood Disorder, Chest Pain / Angina, Hearing Disorder / Deafness, Hypertension, Musculoskeletal Disorder, Osteoarthritis (OA), Pneumonia Additional Past Medical History / Comment(s): fluctuating body weight, endometreosis, chronic back pain with pain stimulator, history of iron deficiency,"low rbc's" history of anemia requiring blood transfusions, uti, falls and in may with fall had fx to left hip but no sx, dizzy spells, carpal tunnel History of Any Multi-Drug Resistant Organisms: None Reported Past Surgical History: Appendectomy, Bariatric Surgery, Bladder Surgery, Section, Cholecystectomy, Hysterectomy, Tubal Ligation Additional Past Surgical History / Comment(s): bladder suspension, gastric bypass, colon volvulus had exporatory lap w/lysis of adhesions and rt colectomy, urostomy Past Anesthesia/Blood Transfusion Reactions: No Reported Reaction Additional Past Anesthesia/Blood Transfusion Reaction / Comm: blood trandfusion- no reaction Past Psychological History: Anxiety, Bipolar, Depression Additional Psychological History / Comment(s): pt lives alone in 2 story home but she stays on first floor. uses cane or walker-has dizzy spells at times and hx of falls. idc Smoking Status: Current every day smoker Past Alcohol Use History: Occasional Additional Past Alcohol Use History / Comment(s): started smoking at age 16(1976) smoked 2 ppd, quit 1998, restarted smoking recently less than a pack a day Past Drug Use History: None Reported - Past Family History Mother Family Medical History: No Reported History Additional Family Medical History / Comment(s): no history Father Family Medical History: No Reported History Additional Family Medical History / Comment(s): from alcoholism, gout Brother(s) Additional Family Medical History / Comment(s): seizure Medications and Allergies Home Medications Medication Instructions Recorded Confirmed Type DULoxetine HCL [Cymbalta] 60 mg PO BID 03/21/16 12/14/19 History HYDROcodone/APAP 10-325MG [[place] 1 tab PO TID 03/21/16 12/14/19 History 10-325] SUMAtriptan SUCCINATE [Imitrex] 100 mg PO BID PRN 03/21/16 12/14/19 History carBAMazepine [TEGretol] 400 mg PO BID 03/21/16 12/14/19 History Metoprolol Tartrate 25 mg PO BID 02/02/19 12/14/19 History busPIRone HCL 15 mg PO TID 02/02/19 12/14/19 History lisinopriL [Zestril] 40 mg PO DAILY 02/02/19 12/14/19 History ALPRAZolam [Xanax] 1 mg PO QID 04/20/19 12/14/19 History Dicyclomine HCl 20 mg PO TID PRN 04/20/19 12/14/19 History Fluticasone Nasal [place] [Flonase 1 spray EA NOSTRIL DAILY 04/20/19 12/14/19 Hi story Nasal [place]] Promethazine HCl 25 mg PO BID 04/20/19 12/14/19 History Albuterol Inhaler [Ventolin Hfa 2 puff INHALATION RT-DAILY 08/04/19 12/14/19 History Inhaler] Butalb/APAP/Caff 50-325-40Mg 1 tab PO Q4H PRN 08/04/19 12/14/19 History [Fioricet 50-325-40] traZODone HCL [Desyrel] 100 mg PO HS 08/04/19 12/14/19 History Aspirin 81 mg PO DAILY #30 chew 08/10/19 12/14/19 Rx Famotidine [Pepcid] 20 mg PO HS #30 tab 08/10/19 12/14/19 Rx Ondansetron [Zofran] 4 mg PO Q8HR PRN #20 tab 08/10/19 12/14/19 Rx Pantoprazole [Protonix] 40 mg PO DAILY 12/14/19 12/14/19 History Pravastatin Sodium [Pravachol] 10 mg PO DAILY 12/14/19 12/14/19 History Tiotropium 18 Mcg/Puff [Spiriva] 1 puff INHALATION RT-DAILY 12/14/19 12/14/19 History Allergies Allergy/AdvReac Type Severity Reaction Status Date / Time No Known Allergies Allergy Verified 12/14/19 11:52 Surgical - Exam Vital Signs Temp Pulse Resp BP Pulse Ox 98.0 F 93 18 182/115 99 12/14/19 11:13 12/14/19 11:13 12/14/19 11:13 12/14/19 11:13 12/14/19 11:13 Results - Labs 12/14/19 11:47 12/15/19 08:57 Abnormal Lab Results - Last 24 Hours (Table) 12/15/19 Range/Units 08:57 Sodium 135 L (137-145) mmol/L BUN 2 L (7-17) mg/dL Glucose 121 H (74-99) mg/dL Calcium 8.3 L (8.4-10.2) mg/dL Total Protein 5.6 L (6.3-8.2) g/dL Albumin 3.1 L (3.5-5.0) g/dL Microbiology - Last 24 Hours (Table) 12/14/19 12:14 Urine Culture - Preliminary Urine,Clean Catch Diabetes panel 12/15/19 Range/Units 08:57 Sodium 135 L (137-145) mmol/L Potassium 3.8 (3.5-5.1) mmol/L Chloride 105 (98-107) mmol/L Carbon Dioxide 26 (22-30) mmol/L BUN 2 L (7-17) mg/dL Creatinine 0.52 (0.52-1.04) mg/dL Glucose 121 H (74-99) mg/dL Calcium 8.3 L (8.4-10.2) mg/dL AST 17 (14-36) U/L ALT 8 (4-34) U/L Alkaline Phosphatase 89 (38-126) U/L Total Protein 5.6 L (6.3-8.2) g/dL Albumin 3.1 L (3.5-5.0) g/dL Calcium panel 12/15/19 Range/Units 08:57 Calcium 8.3 L (8.4-10.2) mg/dL Albumin 3.1 L (3.5-5.0) g/dL Pituitary panel 12/15/19 Range/Units 08:57 Sodium 135 L (137-145) mmol/L Potassium 3.8 (3.5-5.1) mmol/L Chloride 105 (98-107) mmol/L Carbon Dioxide 26 (22-30) mmol/L BUN 2 L (7-17) mg/dL Creatinine 0.52 (0.52-1.04) mg/dL Glucose 121 H (74-99) mg/dL Calcium 8.3 L (8.4-10.2) mg/dL Adrenal panel 12/15/19 Range/Units 08:57 Sodium 135 L (137-145) mmol/L Potassium 3.8 (3.5-5.1) mmol/L Chloride 105 (98-107) mmol/L Carbon Dioxide 26 (22-30) mmol/L BUN 2 L (7-17) mg/dL Creatinine 0.52 (0.52-1.04) mg/dL Glucose 121 H (74-99) mg/dL Calcium 8.3 L (8.4-10.2) mg/dL Total Bilirubin 0.2 (0.2-1.3) mg/dL AST 17 (14-36) U/L ALT 8 (4-34) U/L Alkaline Phosphatase 89 (38-126) U/L Total Protein 5.6 L (6.3-8.2) g/dL Albumin 3.1 L (3.5-5.0) g/dL <Wilfrid Sanchez - Last Filed: 12/15/19 18:23> History of Present Illness History of present illness: As above. Patient with history of choledocholithiasis. CAT scan results noted. Await GI input. Will follow. Surgical - Exam Vital Signs Temp Pulse Resp BP Pulse Ox 98.0 F 93 18 182/115 99 12/14/19 11:13 12/14/19 11:13 12/14/19 11:13 12/14/19 11:13 12/14/19 11:13 Results - Labs 12/14/19 11:47 12/15/19 08:57 Abnormal Lab Results - Last 24 Hours (Table) 12/15/19 Range/Units 08:57 Sodium 135 L (137-145) mmol/L BUN 2 L (7-17) mg/dL Glucose 121 H (74-99) mg/dL Calcium 8.3 L (8.4-10.2) mg/dL Total Protein 5.6 L (6.3-8.2) g/dL Albumin 3.1 L (3.5-5.0) g/dL Microbiology - Last 24 Hours (Table) 12/14/19 12:14 Urine Culture - Preliminary Urine,Clean Catch Diabetes panel 12/15/19 Range/Units 08:57 Sodium 135 L (137-145) mmol/L Potassium 3.8 (3.5-5.1) mmol/L Chloride 105 (98-107) mmol/L Carbon Dioxide 26 (22-30) mmol/L BUN 2 L (7-17) mg/dL Creatinine 0.52 (0.52-1.04) mg/dL Glucose 121 H (74-99) mg/dL Calcium 8.3 L (8.4-10.2) mg/dL AST 17 (14-36) U/L ALT 8 (4-34) U/L Alkaline Phosphatase 89 (38-126) U/L Total Protein 5.6 L (6.3-8.2) g/dL Albumin 3.1 L (3.5-5.0) g/dL Calcium panel 12/15/19 Range/Units 08:57 Calcium 8.3 L (8.4-10.2) mg/dL Albumin 3.1 L (3.5-5.0) g/dL Pituitary panel 12/15/19 Range/Units 08:57 Sodium 135 L (137-145) mmol/L Potassium 3.8 (3.5-5.1) mmol/L Chloride 105 (98-107) mmol/L Carbon Dioxide 26 (22-30) mmol/L BUN 2 L (7-17) mg/dL Creatinine 0.52 (0.52-1.04) mg/dL Glucose 121 H (74-99) mg/dL Calcium 8.3 L (8.4-10.2) mg/dL Adrenal panel 12/15/19 Range/Units 08:57 Sodium 135 L (137-145) mmol/L Potassium 3.8 (3.5-5.1) mmol/L Chloride 105 (98-107) mmol/L Carbon Dioxide 26 (22-30) mmol/L BUN 2 L (7-17) mg/dL Creatinine 0.52 (0.52-1.04) mg/dL Glucose 121 H (74-99) mg/dL Calcium 8.3 L (8.4-10.2) mg/dL Total Bilirubin 0.2 (0.2-1.3) mg/dL AST 17 (14-36) U/L ALT 8 (4-34) U/L Alkaline Phosphatase 89 (38-126) U/L Total Protein 5.6 L (6.3-8.2) g/dL Albumin 3.1 L (3.5-5.0) g/dL
--- NOTE | 2019-12-15 15:31 | P.PN ---
Progress Note - Text Progress Note Date: 12/15/19 Chief Complaint: Epigastric pain History of presenting complaint: This is a 59-year-old patient of Dr. Bolanos. Chronic stable medical conditions include hypertension, obesity with previous bariatric surgery, , bipolar disorder, hypertension, chronic back pain,. Patient had repeated blood infection with UTI and a chronic Storey catheter for 2 years. underwent partial bladder resection on January 08, 2019 [facility]. urostomy was created. Subsequently bilateral kidney stents were removed. In June of this 2019 patient been admitted with acute idiopathic pancreatitis. Patient now presenting with 1 week of increasing pain in the epigastric area she described as stabbing pain. Also feels like a tight band across the area. Significant nausea. Not able to eat because of the same. she has a fair appetite. No fever no chills. Computed tomography scan in the ER was nonspecific.. today-patient has been nothing by mouth except for ice chips. Getting IV fluids. Having nausea. Epigastric still pain present but to be decreased Review of systems: Was done for constitutional, cardiovascular, GI, pulmonary. relevant finding as above Active Medications Acetaminophen (Acetaminophen Tab 325 Mg Tab) 650 mg PO Q6HR PRN PRN Reason: Mild Pain or Fever > 100.5 Last Admin: 12/15/19 08:06 Dose: 650 mg Documented by: Albuterol Sulfate (Albuterol Nebulized 2.5 Mg/3 Ml) 2.5 mg INHALATION RT-DAILY [facility] Last Admin: 12/15/19 09:05 Dose: 2.5 mg Documented by: Alprazolam (Alprazolam 1 Mg Tab) 1 mg PO QID [facility] Last Admin: 12/15/19 13:03 Dose: 1 mg Documented by: Buspirone HCl (Buspirone Hcl 5 Mg Tab) 15 mg PO TID [facility] Last Admin: 12/15/19 15:11 Dose: 15 mg Documented by: Carbamazepine (Carbamazepine 200 Mg Tab) 400 mg PO BID [facility] Last Admin: 12/15/19 08:02 Dose: 400 mg Documented by: Duloxetine HCl (Duloxetine Hcl 60 Mg Capsule.) 60 mg PO BID [facility] Last Admin: 12/15/19 08:02 Dose: 60 mg Documented by: Hydromorphone HCl (Hydromorphone 1 Mg/Ml 1 Ml Syringe) 1 mg IVP Q3HR PRN PRN Reason: Severe Pain Last Admin: 12/15/19 15:08 Dose: 1 mg Documented by: Ceftriaxone Sodium 1 gm/ (Sodium Chloride) 50 mls @ 100 mls/hr IVPB Q24H [facility] Last Admin: 12/14/19 20:14 Dose: 100 mls/hr Documented by: Sodium Bicarbonate 50 ml/ (Dextrose/Sodium Chloride) 1,050 mls @ 130 mls/hr IV .Q8H5M [facility] Last Admin: 12/15/19 13:32 Dose: 130 mls/hr Documented by: Ibuprofen (Ibuprofen 400 Mg Tab) 400 mg PO Q6HR PRN PRN Reason: Mild Pain or Fever > 100.5 Lisinopril (Lisinopril 20 Mg Tab) 40 mg PO DAILY [facility] Last Admin: 12/15/19 08:02 Dose: 40 mg Documented by: Metoclopramide HCl (Metoclopramide 5 Mg/Ml 2 Ml Vial) 10 mg IVP Q6HR [facility] Last Admin: 12/15/19 13:03 Dose: 10 mg Documented by: Metoprolol Tartrate (Metoprolol Tartrate 25 Mg Tab) 25 mg PO BID [facility] Last Admin: 12/15/19 08:07 Dose: 25 mg Documented by: Morphine Sulfate (Morphine Sulfate 4 Mg/Ml Syringe) 4 mg IV Q4HR PRN PRN Reason: Severe Pain Naloxone HCl (Naloxone 0.4 Mg/Ml 1 Ml Vial) 0.2 mg IV Q2M PRN PRN Reason: Opioid Reversal Pantoprazole Sodium (Pantoprazole 40 Mg/10 Ml Vial) 40 mg IV DAILY [facility] Last Admin: 12/15/19 08:03 Dose: 40 mg Documented by: Sumatriptan Succinate (Sumatriptan Succinate 50 Mg Tab) 100 mg PO BID PRN PRN Reason: Migraine Headache Last Admin: 12/15/19 13:03 Dose: 100 mg Documented by: Physical examination: VITAL SIGNS: 97.9, 80, 16, 139/75, 97% on room air GENERAL: sitting on bed, awake EYES: Pupils equal. Conjunctiva normal. HEENT: External appearance of nose and ears normal, oral cavity grossly normal. NECK: JVD not raised; masses not palpable. HEART: First and second heart sounds are normal; no edema. LUNGS: Respiratory rate normal; clear to auscultation. ABDOMEN: Soft, epigastric tenderness, no guarding or rigidity, liver spleen not palpable, no masses palpable, midline scar is present, urostomy bag-with clear urine PSYCH: AO - times three. Mood and affect normal INVESTIGATIONS, reviewed in the clinical context: Potassium 3.8 creatinine 0.5 bicarbonate 26 Admission testing White count 9 hemoglobin 10.6 platelets 611 potassium 4.2 sodium 131 creatinine 0.74 amylase 147 lipase 213 UA positive for nitrite leukoesterase WBC EKG tracing personally reviewed by me-normal sinus rhythm with poor R-wave progression Chest x-ray film personally reviewed by me-lungs clear Previous testing: Creatinine was 0.77 on April 24 Assessment: -Acute epigastric pain in a patient for a week. Nausea. No vomiting. Computed tomography scan of the abdomen is unremarkable. Lipase is normal. Patient's had a previous gastric bypass surgery. Several years ago. This could be a low- grade pancreatitis.acute gastritis is in the differential -Acute metabolic acidosis -improved -Essential hypertension -Bipolar disorder -History of Bladder surgery with ileal conduit -Hyponatremia -Acute UTI with cystitis Plan: await input from GI. Patient may benefit from EGD. Still having nausea. change antiemetic to Reglan
--- NOTE | 2019-12-15 22:41 | CONS ---
CONSULTATION DATE OF DICTATION: 12/15/2019 REASON FOR CONSULTATION: Epigastric pain. HISTORY OF PRESENT ILLNESS: The patient is a 59-year-old pleasant white female who came to the emergency room complaining of epigastric pain for the last one week's duration. She has been having these symptoms intermittently on and off for the last 2 years' duration. She states that she had about 3 episodes of acute pancreatitis requiring hospitalization. However, for the last one week her epigastric pain is progressively getting worse associated with multiple episodes of nausea and vomiting. She denies any heartburn, reports no dysphagia or odynophagia. She did have a CT of the abdomen and pelvis done that showed dilated common bile duct and pancreatic duct. However, serum transaminases are within normal limits. Review of the office records showed that she was evaluated in the office in May of 2018. She had an endoscopic ultrasound of the pancreas at [facility] because of dilated biliary system which did not show any pancreatic mass. PAST MEDICAL HISTORY: Her past medical history is significant for prior bariatric surgery, history of bipolar disorder, hypertension, chronic back pain, hyperlipidemia, history of recurrent pancreatitis, bladder cancer, for which she underwent bladder resection with urostomy, and pain stimulator for chronic back pain. PAST SURGICAL HISTORY: Bladder resection with urostomy, pain stimulator placement, history of cholecystectomy. MEDICATIONS: Medications at home include Spiriva, Desyrel, Zestril, tegretol, buspirone, Imitrex, promethazine, Pravachol, Protonix, Zofran, metoprolol, Flonase, Pepcid, [place], Cymbalta, Ventolin, Xanax, aspirin and dicyclomine. ALLERGIES: NONE. SOCIAL HISTORY: No smoking. No alcohol use. FAMILY HISTORY: Unremarkable. REVIEW OF SYSTEMS: CARDIOPULMONARY: No chest pain or shortness of breath. GENITOURINARY: No dysuria or hematuria. MUSCULOSKELETAL: Unremarkable. SKIN: Unremarkable. ENDOCRINE: Unremarkable. PSYCHIATRIC: Unremarkable. NEUROLOGY: Unremarkable. ENT/VISION: Unremarkable. CONSTITUTIONAL: No recent weight loss. No fever, chills, night sweats. PHYSICAL EXAMINATION: She appears comfortable. No apparent distress. Vital signs are stable. Blood pressure 139/75, pulse rate 80, temperature 97.9. HEENT examination unremarkable. Conjunctivae pink. Sclerae anicteric. Oral cavity no lesions. NECK: No JVD or lymph node enlargement. CHEST: Clear to auscultation. HEART: Regular rate and rhythm. ABDOMEN: Soft. Tenderness in the epigastric area. Bowel sounds are positive. No organomegaly. EXTREMITIES: No pedal edema. SKIN: No rashes. NEUROLOGIC: Alert and oriented x3. No focal deficits. LABS: Amylase is 147, lipase is 213. AST, ALT, T-bilirubin and alkaline phosphatase are within normal limits. WBC 9, hemoglobin 10.6. Platelets 611. PT/INR normal. Basic metabolic panel is normal. Urinalysis showed positive nitrite and large leukocyte esterase. IMPRESSION: Severe epigastric pain for the last one week's duration. Normal amylase and lipase. CT of the abdomen showed dilated biliary system but normal serum transaminases noted. As mentioned earlier, she did have an EUS of the pancreas done for dilated CBD and PD in May of 2018 at [facility] that was unremarkable. Recent CT scan did not show any evidence of any pancreatic mass. Her last upper endoscopy was again done at the time of EUS in May of 2018. That was unremarkable other than prior bariatric surgery. RECOMMENDATIONS: 1. Protonix 40 mg twice daily. 2. Start her on a clear liquid diet. 3. Pain medications as needed. 4. Antiemetics. 5. Repeat labs in the morning. 6. No plans for any endoscopic intervention at the present time. 7. Will follow with you closely. Thank you for this consultation. MMODL / IJN: [id number] /
[2019-12-16] MEDS: METOCLOPRAMIDE 5 MG/ML 2 ML VIAL IVP SCH ×3 (00:30→12:01)
[2019-12-16] MEDS: HYDROmorphone 1 MG/ML 1 ML SYRINGE IVP PRN ×4 (00:30→12:01)
[2019-12-16] MEDS: SUMAtriptan succinate 50 MG TAB PO PRN (05:04)
[2019-12-16] MEDS: DEXTROSE 5%-0.45% NACL 1,000 ML with SODIUM BICARB (1 MEQ/ML) 50 ML IV SCH ×4 (05:51→13:00)
[2019-12-16] MEDS: ALBUTEROL NEBULIZED 2.5 MG/3 ML INHALATION SCH (07:19)
[2019-12-16 07:56] VITALS: PULSE 79; RESP 16
[2019-12-16] MEDS: ALPRAZolam 1 MG TAB PO SCH ×2 (08:02→12:01)
[2019-12-16] MEDS: METOPROLOL TARTRATE 25 MG TAB PO SCH (08:02)
[2019-12-16] MEDS: DULoxetine HCL 60 MG CAPSULE.DR PO SCH (08:02)
[2019-12-16] MEDS: lisinopriL 20 MG TAB PO SCH (08:02)
[2019-12-16] MEDS: busPIRone HCl 5 MG TAB PO SCH ×2 (08:02→16:13)
[2019-12-16] MEDS: PANTOPRAZOLE 40 MG/10 ML VIAL IV SCH (08:02)
[2019-12-16] MEDS: carBAMazepine 200 MG TAB PO SCH (08:08)
[2019-12-16] MEDS ORDERED: PANTOPRAZOLE 40 MG/10 ML VIAL IVP SCH (09:00)
[2019-12-16 09:38] LABS: Amylase 82 U/L (30-110)
--- NOTE | 2019-12-16 12:51 | P.PN ---
Subjective Progress Note Date: 12/16/19 Principal diagnosis: epigastric pain This is 59-year-old white female who came to the emergency department complaining of epigastric pain for the last week. She's been having these symptoms intermittently on and off for the past 2 years. She's also had a approximately 3 episodes of pancreatitis requiring hospitalization, she states the anus reminding her of the pain she has with the pancreatitis. She had several episodes of nausea and vomiting, has not had any since hospitalization. She states she still has some mild epigastric pain however is somewhat better. She had a CT of the abdomen and pelvis which showed dilated common bile duct and pancreatic duct however her serum transaminases are within normal limits. She is also had prior CT scans in the past showing common bile duct and pancreatic duct dilation. A repeat amylase and lipase was done this morning, amylase 82, Lipase 180. Objective - Vital Signs Vital signs: Vital Signs Temp 97.9 F 12/16/19 07:55 Pulse 79 12/16/19 08:11 Resp 16 12/16/19 08:11 BP 129/78 12/16/19 07:55 Pulse Ox 97 12/16/19 07:55 Intake & Output 12/15/19 12/16/19 12/16/19 18:59 06:59 18:59 Intake Total 1560 Output Total 900 1375 Balance -900 185 Intake: Intake, IV Titration 1560 Amount Dextrose 5%-0.45% NaCl 1, 1560 000 ml @ 130 mls/hr IV . Q8H5M HAR[place] with Sodium Bicarb (1 Meq/ml) 50 ml Rx#:[id number] Output: Urine 900 1375 Other: Voiding Method Ileal Conduit (Right) Ileal Conduit (Right) # Voids 1 - Exam General appearance: The patient is alert, oriented, in no acute distress. HET: Head is normocephalic and atraumatic. Conjunctiva pink. Sclera anicteric. Neck: Supple without lymphadenopathy. Trachea midline. Abdomen: Soft, mild tenderness in the epigastric region nondistended with bowel sounds. No palpable organomegaly or masses. No guarding or rigidity. Extremities: Normal skin color and turgor. Pedal edema. Neurological: No focal deficits. And oriented 3. - Labs CBC & Chem 7: 12/14/19 11:47 12/15/19 08:57 Labs: Microbiology - Last 24 Hours (Table) 12/14/19 12:14 Urine Culture - Preliminary Urine,Clean Catch Gram Neg Bacilli Assessment and Plan Assessment: Severe epigastric pain for the last week's duration. Normal amylase and lipase. CT of the abdomen showed dilated biliary system but normal serum transaminases noted. As mentioned earlier she did have an EUS of the pancreas done for dilated CBD and PD in May 2018 at [facility] that was unremarkable. Recent computed tomography scan did not show any evidence of any pancreatic mass. Her last upper endoscopy was again done at the time of the EUS in May 2018. That was unremarkable other than prior bariatric surgery. Plan: 1. Protonix 40 mg twice daily 2. Advance diet as tolerated 3. Pain medications as needed 4. Antiemetics 5. Repeat labs in the morning 6. No plans for any endoscopic interventions at the present time. 7. She may be discharged home from a gastroenterology standpoint. The impression and plan of care has been dictated as directed. Dr. Emely Jackman I performed a history and examination of this patient, discussed the same with the dictator. I agree with the dictator's note ,documented as a scribe. Any additional findings or plans will be noted.
--- NOTE | 2019-12-16 12:54 | P.PN ---
Subjective Progress Note Date: 12/16/19 Principal diagnosis: Epigastric pain Patient still having upper abdominal pain however it is improved. She is asking more food choices at this time. No nausea or vomiting. No bowel movement. Labs are normal. GI evaluation noted. Objective - Vital Signs Vital signs: Vital Signs Temp 97.9 F 12/16/19 07:55 Pulse 79 12/16/19 08:11 Resp 16 12/16/19 08:11 BP 129/78 12/16/19 07:55 Pulse Ox 97 12/16/19 07:55 Intake & Output 12/15/19 12/16/19 12/16/19 18:59 06:59 18:59 Intake Total 1560 Output Total 900 1375 Balance -900 185 Intake: Intake, IV Titration 1560 Amount Dextrose 5%-0.45% NaCl 1, 1560 000 ml @ 130 mls/hr IV . Q8H5M [place] with Sodium Bicarb (1 Meq/ml) 50 ml Rx#:[id number] Output: Urine 900 1375 Other: Voiding Method Ileal Conduit (Right) Ileal Conduit (Right) # Voids 1 - Exam Abdomen: Soft, nondistended, mild epigastric tenderness - Labs CBC & Chem 7: 12/14/19 11:47 12/15/19 08:57 Labs: Microbiology - Last 24 Hours (Table) 12/14/19 12:14 Urine Culture - Preliminary Urine,Clean Catch Gram Neg Bacilli Assessment and Plan (1) Abdominal pain Narrative/Plan: Patient's abdominal pain has been improving. Etiology certainly may represent chronic pancreatitis. No surgical intervention planned at this time. We'll advance diet. Continue antiacids. Current Visit: No Status: Acute Code(s): R10.9 - UNSPECIFIED ABDOMINAL PAIN SNOMED Code(s): 49715006
[2019-12-16 14:59] VITALS: BP 141/84; TEMP 97.8
--- NOTE | 2019-12-17 22:52 | P.DS ---
Providers Date of admission: 12/14/19 16:00 Expected date of discharge: 12/16/19 Attending physician: Maurilio Zhang Consults: 12/14/19 15:49 Consult Physician Stat Consulting Provider: Angeline Jackman Consult Reason/Comments: biliary dilation Do you want consulting provider notified?: Yes 12/14/19 20:08 Consult Physician Routine Consulting Provider: Wilfrid Sanchez Consult Reason/Comments: abd pain Do you want consulting provider notified?: Yes Primary care physician: [facility] Course: Chief Complaint: Epigastric pain History of presenting complaint: This is a 59-year-old patient of Dr. Bolanos. Chronic stable medical conditions include hypertension, obesity with previous bariatric surgery, , bipolar disorder, hypertension, chronic back pain,. Patient had repeated blood infection with UTI and a chronic Storey catheter for 2 years. underwent partial bladder resection on January 08, 2019 [facility]. urostomy was created. Subsequently bilateral kidney stents were removed. In June of this year 2019 patient been admitted with acute idiopathic pancreatitis. Patient now presenting with 1 week of increasing pain in the epigastric area she described as stabbing pain. Also feels like a tight band across the area. Significant nausea. Not able to eat because of the same. she has a fair appetite. No fever no chills. Computed tomography scan in the ER was nonspecific.. Per gastroenterology-patient had endoscopic ultrasound the pancreas and an different hospital because of a dilated bili system and did not show any band headache mass. today-patient has been nothing by mouth except for ice chips. Getting IV fluids. Having nausea. She was managed conservatively. Started back on liquids. She tolerated. Told her to remain on full liquids and advance to soft bland diet. She may need a repeat EGD down the road. Care was discussed with GI and patient in detail. Questions answered. Discussion and discharge planning more than 35 minutes Consultation: Dr. Emely Jackman from GI Dr. Gomez from general surgery Physical examination: VITAL SIGNS: 97.9, 79, 16, 129/78, 97% room air GENERAL: sitting on bed, awake EYES: Pupils equal. Conjunctiva normal. HEENT: External appearance of nose and ears normal, oral cavity grossly normal. NECK: JVD not raised; masses not palpable. HEART: First and second heart sounds are normal; no edema. LUNGS: Respiratory rate normal; clear to auscultation. ABDOMEN: Soft, decreased epigastric tenderness, no guarding or rigidity, liver spleen not palpable, no masses palpable, midline scar is present, urostomy bag- with clear urine PSYCH: AO - times three. Mood and affect normal INVESTIGATIONS, reviewed in the clinical context: Potassium 3.8 creatinine 0.5 bicarbonate 26 amylase 82, lipase 180 Admission testing White count 9 hemoglobin 10.6 platelets 611 potassium 4.2 sodium 131 creatinine 0.74 amylase 147 lipase 213 UA positive for nitrite leukoesterase WBC EKG tracing personally reviewed by me-normal sinus rhythm with poor R-wave progression Chest x-ray film personally reviewed by me-lungs clear Previous testing: Creatinine was 0.77 on April 24 Assessment: -Acute epigastric pain in a patient for a week. Nausea. No vomiting. Computed tomography scan of the abdomen is unremarkable. Lipase is normal. Patient's had a previous gastric bypass surgery. Several years ago. This could be a low- grade pancreatitis.acute gastritis is in the differential. Endoscopy ultrasound at an different hospital in 2019 unremarkable. -Acute metabolic acidosis -improved -Essential hypertension -Bipolar disorder -History of Bladder surgery with ileal conduit -Hyponatremia -Acute UTI with cystitis from Klebsiella pneumoniae Plan: [place] home Patient Condition at Discharge: Stable Plan - Discharge Summary Discharge Rx Participant: Yes New Discharge Prescriptions: New Cephalexin [Keflex] 250 mg PO Q8HR #9 capsule Continue carBAMazepine [TEGretol] 400 mg PO BID SUMAtriptan SUCCINATE [Imitrex] 100 mg PO BID PRN PRN Reason: Migraine Headache DULoxetine HCL [Cymbalta] 60 mg PO BID busPIRone HCL 15 mg PO TID lisinopriL [Zestril] 40 mg PO DAILY Metoprolol Tartrate 25 mg PO BID ALPRAZolam [Xanax] 1 mg PO QID Fluticasone Nasal [place] [Flonase Nasal [place]] 1 spray EA NOSTRIL DAILY Dicyclomine HCl 20 mg PO TID PRN PRN Reason: Pain Albuterol Inhaler [Ventolin Hfa Inhaler] 2 puff INHALATION RT-DAILY Butalb/APAP/Caff 50-325-40Mg [Fioricet 50-325-40] 1 tab PO Q4H PRN PRN Reason: Migraine Headache traZODone HCL [Desyrel] 100 mg PO HS Aspirin 81 mg PO DAILY #30 chew Ondansetron [Zofran] 4 mg PO Q8HR PRN #20 tab PRN Reason: Nausea And Vomiting Pravastatin Sodium [Pravachol] 10 mg PO DAILY Tiotropium 18 Mcg/Puff [Spiriva] 1 puff INHALATION RT-DAILY Changed HYDROcodone/APAP 10-325MG [[place] 10-325] 1 tab PO TID PRN #0 PRN Reason: Pain Pantoprazole [Protonix] 40 mg PO BID #60 tab Discontinued Promethazine HCl 25 mg PO BID Famotidine [Pepcid] 20 mg PO HS #30 tab Discharge Medication List DULoxetine HCL [Cymbalta] 60 mg PO BID 03/21/16 [History] SUMAtriptan SUCCINATE [Imitrex] 100 mg PO BID PRN 03/21/16 [History] carBAMazepine [TEGretol] 400 mg PO BID 03/21/16 [History] Metoprolol Tartrate 25 mg PO BID 02/02/19 [History] busPIRone HCL 15 mg PO TID 02/02/19 [History] lisinopriL [Zestril] 40 mg PO DAILY 02/02/19 [History] ALPRAZolam [Xanax] 1 mg PO QID 04/20/19 [History] Dicyclomine HCl 20 mg PO TID PRN 04/20/19 [History] Fluticasone Nasal [place] [Flonase Nasal [place]] 1 spray EA NOSTRIL DAILY 04/20/19 [History] Albuterol Inhaler [Ventolin Hfa Inhaler] 2 puff INHALATION RT-DAILY 08/04/19 [History] Butalb/APAP/Caff 50-325-40Mg [Fioricet 50-325-40] 1 tab PO Q4H PRN 08/04/19 [ History] traZODone HCL [Desyrel] 100 mg PO HS 08/04/19 [History] Aspirin 81 mg PO DAILY #30 chew 08/10/19 [Rx] Ondansetron [Zofran] 4 mg PO Q8HR PRN #20 tab 08/10/19 [Rx] Pravastatin Sodium [Pravachol] 10 mg PO DAILY 12/14/19 [History] Tiotropium 18 Mcg/Puff [Spiriva] 1 puff INHALATION RT-DAILY 12/14/19 [History] Cephalexin [Keflex] 250 mg PO Q8HR #9 capsule 12/16/19 [Rx] HYDROcodone/APAP 10-325MG [[place] 10-325] 1 tab PO TID PRN #0 12/16/19 [Rx] Pantoprazole [Protonix] 40 mg PO BID #60 tab 12/16/19 [Rx] Follow up Appointment(s)/Referral(s): Wilfrid Sanchez MD [Medical Doctor] - 1 Week Brenden Bolanos MD [Primary Care Provider] - 1-2 days Patient Instructions/Handouts: Soft Diet (DC), Full Liquid Diet (DC) Activity/Diet/Wound Care/Special Instructions: Soft diet Discharge Disposition: HOME SELF-CARE
--- NOTE | 2019-12-23 06:13 | CDI ---
Documentation Clarification Form Date: 12/23/2019 05:00:00 AM From: Yolanda Dawn Phone: If you have a question about this query, please contact Patricia Taylor Evidence Specialist at [phone] between 8am and 5pm. Admit Date: 12/16/2019 12:50:00 PM Patient Name: Nehemiah Carlson Visit Number: [id number] Discharge Date: 12/16/2019 05:42:00 PM ATTENTION: The Clinical Documentation Specialists (CDI) and [facility] Coding Staff appreciate your assistance in clarifying documentation. Please respond to the clarification below the line at the bottom and electronically sign. The CDI & [facility] Coding staff will review the response and follow-up if needed. Please note: Queries are made part of the Legal Health Record. If you have any questions, please contact the author of this message via ITS. Dr. Maurilio Zhang Pancreatitis is documented in the DCS as "This could be a low grade pancreatitis. Acute gastritis is in the differential. GI consult documents chronic pancreattis. Please clarify the acuity of the patients low grade pancreatitis. Patient history/risk factors: Clinical Indicators: Radiology: dilation of biliary system Labs:Amylast 147 Vital Signs: 98.0 F, 93 bpm, 18, 182/115, 99% RA Other Clinical Indicators: epigastric pain Treatment: NPO IV fluids with bcarbonate, home meds to continue Consults: GI consult chronic pancreatitis In your professional opinion, can you clarify the acuity of the pancreatitis: Acuity Acute Acute on Chronic Chronic Other, please specify ____ Unable to determine Etiology Alcohol induced Biliary Cytomegaloviral Drug induced Gallstone Idiopathic Other, please specify Unable to determine unable to determine MTDD
== END 2019-12-16 17:42 | disposition home or self-care (01) | DRG 391 ==
LOC: EC 11:10 → 1SOBS 16:00 → OBSVTOIN 12-16 12:50 → UNDODISOB 12-16 17:42
PROVIDERS: ADMIT Hospitalist; ATTEND Hospitalist
DX: K29.00 Acute gastritis without bleeding (principal); K85.90 Acute pancreatitis without necrosis or infection, unspecified; N30.00 Acute cystitis without hematuria; E87.1 Hypo-osmolality and hyponatremia; E87.2 Acidosis; K86.1 Other chronic pancreatitis; B96.1 Klebsiella pneumoniae [K. pneumoniae] as the cause of diseases classified elsewhere; J45.909 Unspecified asthma, uncomplicated; Z98.84 Bariatric surgery status; E78.5 Hyperlipidemia, unspecified; F17.210 Nicotine dependence, cigarettes, uncomplicated; F31.9 Bipolar disorder, unspecified; F41.1 Generalized anxiety disorder; H91.90 Unspecified hearing loss, unspecified ear; I10 Essential (primary) hypertension; K83.8 Other specified diseases of biliary tract; Z91.81 History of falling; Z90.710 Acquired absence of both cervix and uterus; Z93.3 Colostomy status; Z93.6 Other artificial openings of urinary tract status; Z79.82 Long term (current) use of aspirin; Z79.899 Other long term (current) drug therapy; Z85.51 Personal history of malignant neoplasm of bladder; Z90.49 Acquired absence of other specified parts of digestive tract; D50.9 Iron deficiency anemia, unspecified; Z60.2 Problems related to living alone; Z87.01 Personal history of pneumonia (recurrent); M19.90 Unspecified osteoarthritis, unspecified site; Z87.440 Personal history of urinary (tract) infections; Z98.51 Tubal ligation status; Z87.81 Personal history of (healed) traumatic fracture; M54.9 Dorsalgia, unspecified; G89.29 Other chronic pain; Z90.6 Acquired absence of other parts of urinary tract; Z81.1 Family history of alcohol abuse and dependence; Z82.0 Family history of epilepsy and other diseases of the nervous system
CPT/HCPCS: 36415; 71046; 74018; 74177; 80053; 81001; 82150; 83605; 83690; 84484; 85025; 85610; 85730; 87077; 87086; 87186; 93005; 94640; 96361; 96374; 96375; 99285

== ENCOUNTER 2020-02-14 09:35 | Emergency (ER) | payer MEDICARE, OTHER ==
[2020-02-14 09:41] VITALS: PULSE 85; RESP 18; TEMP 98.2
[2020-02-14] MEDS ORDERED: HYDROmorphone 0.5 MG/0.5 ML SYRINGE IVP STA (10:03)
[2020-02-14] MEDS ORDERED: ONDANSETRON 4 MG/2 ML VIAL IVP STA (10:03)
[2020-02-14] MEDS ORDERED: SODIUM CHLORIDE 0.9% 1,000 ML IV STA (10:03)
--- NOTE | 2020-02-14 10:10 | ED ---
General Adult HPI - General Chief complaint: Abdominal Pain Stated complaint: Abd pain Time Seen by Provider: 02/14/20 09:43 Source: patient Mode of arrival: ambulatory Limitations: no limitations - History of Present Illness Initial comments: Dictation was produced using [employer] dictation software. please excuse any grammatical, word or spelling errors. This patient was cared for during a federal and state declared state of emergency secondary to Covid 19 Chief Complaint: 59-year-old female with extensive history of abdominal surgery presents with abdominal pain for a couple weeks. History of Present Illness: An is a 59-year-old female she has extensive history of abdominal surgery. Patient states she has multiple episodes of bowel obstructions, biliary duct obstruction, urostomy. She states for the last couple weeks she's been having dry heaving, vomiting and low-grade temperatures. She states that she has not measured a temperature that her temperatures are subjective. She decided come to the emergency department because her symptoms haven't been getting better. Patient has had multiple surgeries in multiple [facility] states. Her surgeon in this area is Dr. Sanchez. Most recently patient was admitted to the hospital for for abdominal pain 2 months ago where she was evaluated by gastroenterology and general surgery. She the CT done at that time showing no acute processes. At that time she was diagnosed with acute urinary tract infection. The ROS documented in this emergency department record has been reviewed and confirmed by me. Those systems with pertinent positive or negative responses have been documented in the HPI. All other systems are other negative and/or noncontributory. PHYSICAL EXAM: General Impression: Alert and oriented x3, not in acute distress HEENT: Normocephalic atraumatic, extra-ocular movements intact, pupils equal and reactive to light bilaterally, mucous membranes moist. Cardiovascular: Heart regular rate and rhythm Chest: Able to complete full sentences, no retractions, no tachypnea Abdomen: abdomen soft, diffuse abdominal tenderness worse in the left upper and left lower quadrant, urostomy bag in place, stoma is pink and well perfused, multiple abdominal scars non-distended, no organomegaly Musculoskeletal: Pulses present and equal in all extremities, no peripheral edema Motor: no focal deficits noted Neurological: CN II-XII grossly intact, no focal motor or sensory deficits noted Skin: Intact with no visualized rashes Psych: Normal affect and mood ED course: 59-year-old female with history of chronic abdominal pain, extensive history of abdominal surgeries presents today with abdominal pain for a couple weeks. vital signs upon arrival are within acceptable limits. Laboratory evaluation obtained. CBC is within patient's usual limits. Coag panel is negative. Metabolic panel within acceptable limits. Lipase is negative. Abdominal labs are within acceptable limits. Urinalysis shows positive for nitrites. Acute abdominal series shows nonobstructive bowel gas pattern. Patient reevaluated at bedside and found to be stable medical condition. She is tolerating oral intake. Patient given 1 g ceftriaxone. She is given antibiotics for urinary tract infection. Patient is strongly advised to follow-up with her general surgeon in the area for outpatient management of symptoms. Also advised follow-up with PCP. Return parameters discussed. Patient requested Imitrex for her headache that she did not complain of upon initial arrival. She continues to have benign physical examination. No neuro deficits noted. He continues to look well-appearing. Patient be discharged. - Related Data Home Medications Medication Instructions Recorded Confirmed DULoxetine HCL [Cymbalta] 60 mg PO BID 03/21/16 02/14/20 SUMAtriptan SUCCINATE [Imitrex] 100 mg PO DAILY PRN 03/21/16 02/14/20 carBAMazepine [TEGretol] 400 mg PO BID 03/21/16 02/14/20 Metoprolol Tartrate 25 mg PO BID 02/02/19 02/14/20 busPIRone HCL 15 mg PO TID 02/02/19 02/14/20 ALPRAZolam [Xanax] 1 mg PO QID 04/20/19 02/14/20 Dicyclomine HCl 20 mg PO TID PRN 04/20/19 02/14/20 Fluticasone Nasal [place] [Flonase 1 spray EA NOSTRIL DAILY 04/20/19 02/14/20 Nasal [place]] Albuterol Inhaler [Ventolin Hfa 2 puff INHALATION RT-Q4H PRN 08/04/19 02/14/20 Inhaler] Butalb/APAP/Caff 50-325-40Mg 1 tab PO Q4H PRN 08/04/19 02/14/20 [Fioricet 50-325-40] traZODone HCL [Desyrel] 100 mg PO HS 08/04/19 02/14/20 Pravastatin Sodium [Pravachol] 10 mg PO HS 12/14/19 02/14/20 Tiotropium 18 Mcg/Puff [Spiriva] 1 puff INHALATION RT-DAILY 12/14/19 02/14/20 HYDROcodone/APAP 10-325MG [[place] 1 tab PO BID PRN 02/14/20 02/14/20 10-325] Promethazine [Phenergan] 25 mg PO Q12H PRN 02/14/20 02/14/20 Previous Rx's Medication Instructions Recorded Ondansetron [Zofran] 4 mg PO Q8HR PRN #20 tab 08/10/19 Pantoprazole [Protonix] 40 mg PO BID #60 tab 12/16/19 Allergies Allergy/AdvReac Type Severity Reaction Status Date / Time No Known Allergies Allergy Verified 02/14/20 10:33 Review of Systems ROS Statement: Those systems with pertinent positive or pertinent negative responses have been documented in the HPI. ROS Other: All systems not noted in ROS Statement are negative. Past Medical History Past Medical History: Asthma, Blood Disorder, Chest Pain / Angina, Hearing Disorder / Deafness, Hypertension, Musculoskeletal Disorder, Osteoarthritis (OA), Pneumonia Additional Past Medical History / Comment(s): fluctuating body weight, endometreosis, chronic back pain with pain stimulator, history of iron defici ency,"low rbc's" history of anemia requiring blood transfusions, uti, falls and in may with fall had fx to left hip but no sx, dizzy spells, carpal tunnel History of Any Multi-Drug Resistant Organisms: None Reported Past Surgical History: Appendectomy, Bariatric Surgery, Bladder Surgery, Section, Cholecystectomy, Hysterectomy, Tubal Ligation Additional Past Surgical History / Comment(s): bladder suspension, gastric bypass, colon volvulus had exporatory lap w/lysis of adhesions and rt colectomy, urostomy Past Anesthesia/Blood Transfusion Reactions: No Reported Reaction Additional Past Anesthesia/Blood Transfusion Reaction / Comment(s): blood trandfusion- no reaction Past Psychological History: Anxiety, Bipolar, Depression Smoking Status: Current every day smoker Past Alcohol Use History: None Reported Past Drug Use History: None Reported - Past Family History Mother Family Medical History: No Reported History Additional Family Medical History / Comment(s): no history Father Family Medical History: No Reported History Additional Family Medical History / Comment(s): from alcoholism, gout Brother(s) Additional Family Medical History / Comment(s): seizure General Exam Limitations: no limitations Course Vital Signs 02/14/20 09:36 Temperature 98.2 F Pulse Rate 85 Respiratory 18 Rate Blood Pressure 157/93 O2 Sat by Pulse 100 Oximetry Medical Decision Making - Lab Data Result diagrams: 02/14/20 10:00 02/14/20 10:00 Lab Results 02/14/20 02/14/20 02/14/20 Range/Units 10:00 10:00 10:00 WBC 10.4 (3.8-10.6) k/uL RBC 3.67 L (3.80-5.40) m/uL Hgb 9.5 L (11.4-16.0) gm/dL Hct 32.6 L (34.0-46.0) % MCV 88.7 D (80.0-100.0) fL MCH 26.0 (25.0-35.0) pg MCHC 29.3 L (31.0-37.0) g/dL RDW 16.1 H (11.5-15.5) % Plt Count 615 H (150-450) k/uL MPV 7.3 Neutrophils % 86 % Lymphocytes % 5 % Monocytes % 6 % Eosinophils % 1 % Basophils % 0 % Neutrophils # 9.0 H (1.3-7.7) k/uL Lymphocytes # 0.5 L (1.0-4.8) k/uL Monocytes # 0.6 (0-1.0) k/uL Eosinophils # 0.1 (0-0.7) k/uL Basophils # 0.0 (0-0.2) k/uL Hypochromasia Marked Anisocytosis Slight PT (9.0-12.0) sec INR (<1.2) APTT (22.0-30.0) sec Sodium 131 L (137-145) mmol/L Potassium 4.0 (3.5-5.1) mmol/L Chloride 101 (98-107) mmol/L Carbon Dioxide 23 (22-30) mmol/L Anion Gap 7 mmol/L BUN 6 L (7-17) mg/dL Creatinine 0.65 (0.52-1.04) mg/dL Est GFR (CKD-EPI)AfAm >90 (>60 ml/min/1.73 sqM) Est GFR (CKD-EPI)NonAf >90 (>60 ml/min/1.73 sqM) Glucose 101 H (74-99) mg/dL Plasma Lactic Acid Jaswinder (0.7-2.0) mmol/L Calcium 8.8 (8.4-10.2) mg/dL Total Bilirubin 0.3 (0.2-1.3) mg/dL Conjugated Bilirubin 0.0 (0.0-0.3) mg/dL Unconjugated Bilirubin 0.0 (0.0-1.1) mg/dL Delta Bilirubin 0.3 H (0.0-0.2) mg/dL AST 32 (14-36) U/L ALT 29 (4-34) U/L Alkaline Phosphatase 168 H (38-126) U/L Total Protein 6.8 (6.3-8.2) g/dL Albumin 3.9 (3.5-5.0) g/dL Lipase 41 (23-300) U/L Urine Color Yellow Urine Appearance Clear (Clear) Urine pH 6.5 (5.0-8.0) Ur Specific [place] 1.017 (1.001-1.035) Urine Protein Trace H (Negative) Urine Glucose (UA) Negative (Negative) Urine Ketones Negative (Negative) Urine Blood Negative (Negative) Urine Nitrite Positive H (Negative) Urine Bilirubin Negative (Negative) Urine Urobilinogen <2.0 (<2.0) mg/dL Ur Leukocyte Esterase Small H (Negative) Urine RBC <1 (0-5) /hpf Urine WBC 4 (0-5) /hpf Urine Bacteria Occasional H (None) /hpf 02/14/20 02/14/20 Range/Units 10:00 10:00 WBC (3.8-10.6) k/uL RBC (3.80-5.40) m/uL Hgb (11.4-16.0) gm/dL Hct (34.0-46.0) % MCV (80.0-100.0) fL MCH (25.0-35.0) pg MCHC (31.0-37.0) g/dL RDW (11.5-15.5) % Plt Count (150-450) k/uL MPV Neutrophils % % Lymphocytes % % Monocytes % % Eosinophils % % Basophils % % Neutrophils # (1.3-7.7) k/uL Lymphocytes # (1.0-4.8) k/uL Monocytes # (0-1.0) k/uL Eosinophils # (0-0.7) k/uL Basophils # (0-0.2) k/uL Hypochromasia Anisocytosis PT 9.3 (9.0-12.0) sec INR 0.9 (<1.2) APTT 22.1 (22.0-30.0) sec Sodium (137-145) mmol/L Potassium (3.5-5.1) mmol/L Chloride (98-107) mmol/L Carbon Dioxide (22-30) mmol/L Anion Gap mmol/L BUN (7-17) mg/dL Creatinine (0.52-1.04) mg/dL Est GFR (CKD-EPI)AfAm (>60 ml/min/1.73 sqM) Est GFR (CKD-EPI)NonAf (>60 ml/min/1.73 sqM) Glucose (74-99) mg/dL Plasma Lactic Acid Jaswinder 1.7 (0.7-2.0) mmol/L Calcium (8.4-10.2) mg/dL Total Bilirubin (0.2-1.3) mg/dL Conjugated Bilirubin (0.0-0.3) mg/dL Unconjugated Bilirubin (0.0-1.1) mg/dL Delta Bilirubin (0.0-0.2) mg/dL AST (14-36) U/L ALT (4-34) U/L Alkaline Phosphatase (38-126) U/L Total Protein (6.3-8.2) g/dL Albumin (3.5-5.0) g/dL Lipase (23-300) U/L Urine Color Urine Appearance (Clear) Urine pH (5.0-8.0) Ur Specific [place] (1.001-1.035) Urine Protein (Negative) Urine Glucose (UA) (Negative) Urine Ketones (Negative) Urine Blood (Negative) Urine Nitrite (Negative) Urine Bilirubin (Negative) Urine Urobilinogen (<2.0) mg/dL Ur Leukocyte Esterase (Negative) Urine RBC (0-5) /hpf Urine WBC (0-5) /hpf Urine Bacteria (None) /hpf Disposition Clinical Impression: UTI (urinary tract infection), Abdominal pain Disposition: HOME SELF-CARE Condition: Good Instructions (If sedation given, give patient instructions): Abdominal Pain (ED) Additional Instructions: Please seek immediate medical attention with any worsening abdominal symptoms especially worsening abdominal pain, intractable nausea and vomiting and c onstitutional symptoms. Otherwise you are strongly advised to follow up with your primary care physician and your general surgeon. Is patient prescribed a controlled substance at d/c from ED?: No Referrals: Brenden Bolanos MD [Primary Care Provider] - 1-2 days Wilfrid Sanchez MD [Medical Doctor] - 1-2 days Time of Disposition: 11:36
[2020-02-14 10:48] LABS: Anisocytosis Slight; Basophils % (A) 0 %; Eosinophils # (A) 0.1 k/uL (0-0.7); Eosinophils % (A) 1 %; HCT 32.6 % (34.0-46.0); HGB 9.5 gm/dL (11.4-16.0); Hypochromasia Marked; Lymphocytes # (A) 0.5 k/uL (1.0-4.8); Lymphocytes % (A) 5 %; MCHC 29.3 g/dL (31.0-37.0); Mean Platelet Volume 7.3; Monocytes # (A) 0.6 k/uL (0-1.0); Monocytes % (A) 6 %; Neutrophils % (A) 86 %; Platelet Count 615 k/uL (150-450); RBC 3.67 m/uL (3.80-5.40); RDW 16.1 % (11.5-15.5); WBC 10.4 k/uL (3.8-10.6)
[2020-02-14 10:55] LABS: ALT 29 U/L (4-34); AST 32 U/L (14-36); African American GFR (CKD) >90 (>60 ml/min/1.73 sqM); Albumin 3.9 g/dL (3.5-5.0); Alkaline Phosphatase 168 U/L (38-126); Anion Gap 7 mmol/L; Bilirubin, Delta 0.3 mg/dL (0.0-0.2); Blood Urea Nitrogen 6 mg/dL (7-17); Calcium 8.8 mg/dL (8.4-10.2); Carbon Dioxide 23 mmol/L (22-30); Chloride 101 mmol/L (98-107); Glucose 101 mg/dL (74-99); Lipase 41 U/L (23-300); Non-African American GFR(CKD) >90 (>60 ml/min/1.73 sqM); Sodium 131 mmol/L (137-145); Total Bilirubin 0.3 mg/dL (0.2-1.3); Total Protein 6.8 g/dL (6.3-8.2)
[2020-02-14 10:58] LABS: Appearance,Urine Clear (Clear); Bacteria,Urine Occasional /hpf; Bilirubin,Urine Negative (Negative); Blood,Urine Negative (Negative); Color,Urine Yellow; Glucose,Urine (UA) Negative (Negative); Ketones,Urine Negative (Negative); Leukocyte Esterase,Urine Small (Negative); Nitrite,Urine Positive (Negative); PH, Urine 6.5 (5.0-8.0); Protein,Urine Trace (Negative); RBC,Urine <1 /hpf (0-5); Specific Gravity,Urine 1.017 (1.001-1.035); Urobilinogen,Urine <2.0 mg/dL (<2.0); WBC,Urine 4 /hpf (0-5)
[2020-02-14 11:04] LABS: MCV 88.7 fL (80.0-100.0)
[2020-02-14 11:05] LABS: INR 0.9 (<1.2); Partial Thromboplastin Time 22.1 sec (22.0-30.0); Prothrombin Time 9.3 sec (9.0-12.0)
[2020-02-14] MEDS ORDERED: cefTRIAXone IN SWFI 1,000 MG/10 ML SYRINGE IVP STA (11:10)
--- NOTE | 2020-02-14 11:22 | XR ---
EXAMINATION TYPE: XR abdomen acute w cxr DATE OF EXAM: 02/14/2020 COMPARISON: NONE HISTORY: Pain TECHNIQUE: Single view of the chest and 2 views of the abdomen are submitted. FINDINGS: Single view of the chest fails demonstrate evidence for acute pulmonary disease. There is no evidence for pneumoperitoneum. Few small scattered air-fluid levels are noted. No definite obstructive change. No sizeable air fluid levels.No mass effects are seen. It sided ostomy noted. No unusual calcifications. IMPRESSION: 1. Nonspecific nonobstructive bowel gas pattern.
[2020-02-14] MEDS ORDERED: SUMAtriptan succinate 25 MG TAB PO STA (11:35)
[2020-02-14 11:41] VITALS: BP 169/101
--- NOTE | 2020-02-14 12:03 | ED ---
Medical Decision Making - Lab Data Result diagrams: 02/14/20 10:00 02/14/20 10:00 Lab Results 02/14/20 02/14/20 02/14/20 Range/Units 10:00 10:00 10:00 WBC 10.4 (3.8-10.6) k/uL RBC 3.67 L (3.80-5.40) m/uL Hgb 9.5 L (11.4-16.0) gm/dL Hct 32.6 L (34.0-46.0) % MCV 88.7 D (80.0-100.0) fL MCH 26.0 (25.0-35.0) pg MCHC 29.3 L (31.0-37.0) g/dL RDW 16.1 H (11.5-15.5) % Plt Count 615 H (150-450) k/uL MPV 7.3 Neutrophils % 86 % Lymphocytes % 5 % Monocytes % 6 % Eosinophils % 1 % Basophils % 0 % Neutrophils # 9.0 H (1.3-7.7) k/uL Lymphocytes # 0.5 L (1.0-4.8) k/uL Monocytes # 0.6 (0-1.0) k/uL Eosinophils # 0.1 (0-0.7) k/uL Basophils # 0.0 (0-0.2) k/uL Hypochromasia Marked Anisocytosis Slight PT (9.0-12.0) sec INR (<1.2) APTT (22.0-30.0) sec Sodium 131 L (137-145) mmol/L Potassium 4.0 (3.5-5.1) mmol/L Chloride 101 (98-107) mmol/L Carbon Dioxide 23 (22-30) mmol/L Anion Gap 7 mmol/L BUN 6 L (7-17) mg/dL Creatinine 0.65 (0.52-1.04) mg/dL Est GFR (CKD-EPI)AfAm >90 (>60 ml/min/1.73 sqM) Est GFR (CKD-EPI)NonAf >90 (>60 ml/min/1.73 sqM) Glucose 101 H (74-99) mg/dL Plasma Lactic Acid Jaswinder (0.7-2.0) mmol/L Calcium 8.8 (8.4-10.2) mg/dL Total Bilirubin 0.3 (0.2-1.3) mg/dL Conjugated Bilirubin 0.0 (0.0-0.3) mg/dL Unconjugated Bilirubin 0.0 (0.0-1.1) mg/dL Delta Bilirubin 0.3 H (0.0-0.2) mg/dL AST 32 (14-36) U/L ALT 29 (4-34) U/L Alkaline Phosphatase 168 H (38-126) U/L Total Protein 6.8 (6.3-8.2) g/dL Albumin 3.9 (3.5-5.0) g/dL Lipase 41 (23-300) U/L Urine Color Yellow Urine Appearance Clear (Clear) Urine pH 6.5 (5.0-8.0) Ur Specific [place] 1.017 (1.001-1.035) Urine Protein Trace H (Negative) Urine Glucose (UA) Negative (Negative) Urine Ketones Negative (Negative) Urine Blood Negative (Negative) Urine Nitrite Positive H (Negative) Urine Bilirubin Negative (Negative) Urine Urobilinogen <2.0 (<2.0) mg/dL Ur Leukocyte Esterase Small H (Negative) Urine RBC <1 (0-5) /hpf Urine WBC 4 (0-5) /hpf Urine Bacteria Occasional H (None) /hpf 02/14/20 02/14/20 Range/Units 10:00 10:00 WBC (3.8-10.6) k/uL RBC (3.80-5.40) m/uL Hgb (11.4-16.0) gm/dL Hct (34.0-46.0) % MCV (80.0-100.0) fL MCH (25.0-35.0) pg MCHC (31.0-37.0) g/dL RDW (11.5-15.5) % Plt Count (150-450) k/uL MPV Neutrophils % % Lymphocytes % % Monocytes % % Eosinophils % % Basophils % % Neutrophils # (1.3-7.7) k/uL Lymphocytes # (1.0-4.8) k/uL Monocytes # (0-1.0) k/uL Eosinophils # (0-0.7) k/uL Basophils # (0-0.2) k/uL Hypochromasia Anisocytosis PT 9.3 (9.0-12.0) sec INR 0.9 (<1.2) APTT 22.1 (22.0-30.0) sec Sodium (137-145) mmol/L Potassium (3.5-5.1) mmol/L Chloride (98-107) mmol/L Carbon Dioxide (22-30) mmol/L Anion Gap mmol/L BUN (7-17) mg/dL Creatinine (0.52-1.04) mg/dL Est GFR (CKD-EPI)AfAm (>60 ml/min/1.73 sqM) Est GFR (CKD-EPI)NonAf (>60 ml/min/1.73 sqM) Glucose (74-99) mg/dL Plasma Lactic Acid Jaswinder 1.7 (0.7-2.0) mmol/L Calcium (8.4-10.2) mg/dL Total Bilirubin (0.2-1.3) mg/dL Conjugated Bilirubin (0.0-0.3) mg/dL Unconjugated Bilirubin (0.0-1.1) mg/dL Delta Bilirubin (0.0-0.2) mg/dL AST (14-36) U/L ALT (4-34) U/L Alkaline Phosphatase (38-126) U/L Total Protein (6.3-8.2) g/dL Albumin (3.5-5.0) g/dL Lipase (23-300) U/L Urine Color Urine Appearance (Clear) Urine pH (5.0-8.0) Ur Specific [place] (1.001-1.035) Urine Protein (Negative) Urine Glucose (UA) (Negative) Urine Ketones (Negative) Urine Blood (Negative) Urine Nitrite (Negative) Urine Bilirubin (Negative) Urine Urobilinogen (<2.0) mg/dL Ur Leukocyte Esterase (Negative) Urine RBC (0-5) /hpf Urine WBC (0-5) /hpf Urine Bacteria (None) /hpf Disposition Clinical Impression: UTI (urinary tract infection), Abdominal pain Disposition: HOME SELF-CARE Condition: Good Instructions (If sedation given, give patient instructions): Abdominal Pain (ED) Additional Instructions: Please seek immediate medical attention with any worsening abdominal symptoms especially worsening abdominal pain, intractable nausea and vomiting and constitutional symptoms. Otherwise you are strongly advised to follow up with your primary care physician and your general surgeon. Prescriptions: Cephalexin [Keflex] 500 mg PO Q6HR 7 Days #28 cap Is patient prescribed a controlled substance at d/c from ED?: No Referrals: Wilfrid Sanchez MD [Medical Doctor] - 1-2 days Brenden Bolanos MD [Primary Care Provider] - 1-2 days Time of Disposition: 12:03
== END 2020-02-14 11:55 | disposition home or self-care (01) ==
LOC: EC 09:35
DX: N39.0 Urinary tract infection, site not specified (principal); F41.9 Anxiety disorder, unspecified; F31.9 Bipolar disorder, unspecified; J45.909 Unspecified asthma, uncomplicated; I10 Essential (primary) hypertension; M19.90 Unspecified osteoarthritis, unspecified site; F17.200 Nicotine dependence, unspecified, uncomplicated; Z79.899 Other long term (current) drug therapy; Z90.89 Acquired absence of other organs; Z90.49 Acquired absence of other specified parts of digestive tract; Z98.51 Tubal ligation status
CPT/HCPCS: 36415; 80053; 82248; 83605; 83690; 85025; 85610; 85730; 81001; 74022; 99284; 96374; 96375 ×2; 96361; J2405; J0696; J1170

== ENCOUNTER 2020-03-11 09:51 | Emergency (ER) | payer MEDICARE, OTHER ==
[2020-03-11] MEDS ORDERED: SODIUM CHLORIDE 0.9% 1,000 ML IV STA (10:12)
[2020-03-11] MEDS ORDERED: SODIUM CHLORIDE 0.9% 500 ML 500 ML IV STA (10:12)
[2020-03-11] MEDS ORDERED: ONDANSETRON 4 MG/2 ML VIAL IVP STA (10:12)
[2020-03-11] MEDS ORDERED: HYDROmorphone 0.5 MG/0.5 ML SYRINGE IVP STA (10:12)
[2020-03-11 10:40] LABS: Calcium 9.2 mg/dL (8.4-10.2); Potassium 3.6 mmol/L (3.5-5.1); Total Bilirubin 0.4 mg/dL (0.2-1.3); Total Protein 7.8 g/dL (6.3-8.2)
[2020-03-11 10:58] LABS: Amorphous Sediment,Urine Occasional /hpf; Appearance,Urine Clear (Clear); Bacteria,Urine Occasional /hpf; Bilirubin,Urine Negative (Negative); Blood,Urine Negative (Negative); Color,Urine Yellow; Glucose,Urine (UA) Negative (Negative); Hyaline Casts,Urine 3 /lpf (0-2); Ketones,Urine Negative (Negative); Leukocyte Esterase,Urine Small (Negative); Mucus,Urine Rare /hpf; Nitrite,Urine Positive (Negative); PH, Urine 6.5 (5.0-8.0); Protein,Urine 1+ (Negative); RBC,Urine 1 /hpf (0-5); Specific Gravity,Urine 1.011 (1.001-1.035); Urobilinogen,Urine <2.0 mg/dL (<2.0); WBC,Urine 9 /hpf (0-5)
[2020-03-11 11:10] LABS: Anisocytosis Slight; Basophils # (A) 0.1 k/uL (0-0.2); Basophils % (A) 1 %; Eosinophils # (A) 0.1 k/uL (0-0.7); Eosinophils % (A) 0 %; HCT 37.6 % (34.0-46.0); HGB 11.7 gm/dL (11.4-16.0); Hypochromasia Moderate; Lymphocytes # (A) 0.8 k/uL (1.0-4.8); Lymphocytes % (A) 6 %; MCH 26.1 pg (25.0-35.0); MCHC 31.1 g/dL (31.0-37.0); Mean Platelet Volume 7.5; Monocytes # (A) 0.7 k/uL (0-1.0); Monocytes % (A) 5 %; Neutrophils # (A) 12.9 k/uL (1.3-7.7); Neutrophils % (A) 88 %; Platelet Count 869 k/uL (150-450); RBC 4.48 m/uL (3.80-5.40); RDW 18.1 % (11.5-15.5); WBC 14.6 k/uL (3.8-10.6)
[2020-03-11] MEDS ORDERED: cefTRIAXone IN SWFI 1,000 MG/10 ML SYRINGE IVP STA (12:11)
--- NOTE | 2020-03-11 12:11 | ED ---
Abdominal Pain HPI - General Chief Complaint: Abdominal Pain Stated Complaint: abd. pain nausea Time Seen by Provider: 03/11/20 09:58 Source: patient, RN notes reviewed Mode of arrival: ambulatory Limitations: no limitations - History of Present Illness Initial Comments: This a 59-year-old female presents emergency Department with chief complaint of chronic abdominal pain, nausea. Patient has chronic abdominal issues in which she's had pancreatitis, multiple abdominal surgeries, patient has urostomy secondary to prior chronic indwelling catheter and neurogenic bladder. Patient has been emergency from several times for similar complaints she states this is not new which she just feels worse today. Patient denies any fevers or chills no chest pain no sick but shortness breath fevers chills. Patient states that she did not complete her antibiotics from prior ER visit. Patient has not follow-up with her PCP in office. - Related Data Home Medications Medication Instructions Recorded Confirmed DULoxetine HCL [Cymbalta] 60 mg PO BID 03/21/16 03/11/20 SUMAtriptan SUCCINATE [Imitrex] 100 mg PO DAILY PRN 03/21/16 03/11/20 carBAMazepine [TEGretol] 400 mg PO BID 03/21/16 03/11/20 Metoprolol Tartrate 25 mg PO BID 02/02/19 03/11/20 busPIRone HCL 15 mg PO TID 02/02/19 03/11/20 ALPRAZolam [Xanax] 1 mg PO QID 04/20/19 03/11/20 Dicyclomine HCl 20 mg PO TID PRN 04/20/19 03/11/20 Fluticasone Nasal [place] [Flonase 1 spray EA NOSTRIL DAILY 04/20/19 03/11/20 Nasal [place]] Albuterol Inhaler [Ventolin Hfa 2 puff INHALATION RT-Q4H PRN 08/04/19 03/11/20 Inhaler] Butalb/APAP/Caff 50-325-40Mg 1 tab PO Q4H PRN 08/04/19 03/11/20 [Fioricet 50-325-40] traZODone HCL [Desyrel] 100 mg PO HS 08/04/19 03/11/20 Pravastatin Sodium [Pravachol] 10 mg PO HS 12/14/19 03/11/20 Tiotropium 18 Mcg/Puff [Spiriva] 1 puff INHALATION RT-DAILY 12/14/19 03/11/20 HYDROcodone/APAP 10-325MG [[place] 1 tab PO BID PRN 02/14/20 03/11/20 10-325] Promethazine [Phenergan] 25 mg PO Q12H PRN 02/14/20 03/11/20 Acetaminophen Tab [Tylenol] 650 mg PO Q4H PRN 03/11/20 03/11/20 Ascorbic Acid [Vitamin C] 1,000 mg PO DAILY 03/11/20 03/11/20 Glucosam/Mukund-Msm1/C/Steve/Bosw 1 tab PO DAILY 03/11/20 03/11/20 [Glucosamine-Chondroitin Tablet] Multivitamins, Thera [Multivitamin 1 tab PO DAILY 03/11/20 03/11/20 (formulary)] Previous Rx's Medication Instructions Recorded Ondansetron [Zofran] 4 mg PO Q8HR PRN #20 tab 08/10/19 Pantoprazole [Protonix] 40 mg PO BID #60 tab 12/16/19 Nitrofurantoin Monohyd/M-Cryst 100 mg PO Q12HR #14 cap 03/11/20 [Macrobid] Omeprazole [PriLOSEC] 40 mg PO DAILY #14 cap 03/11/20 Ondansetron Odt [Zofran Odt] 4 mg PO Q8HR PRN #14 tab 03/11/20 Promethazine Suppository 25 mg RECTAL QID PRN #14 supp 03/11/20 [Phenergan] Allergies Allergy/AdvReac Type Severity Reaction Status Date / Time No Known Allergies Allergy Verified 03/11/20 10:44 Review of Systems ROS Statement: Those systems with pertinent positive or pertinent negative responses have been documented in the HPI. ROS Other: All systems not noted in ROS Statement are negative. Past Medical History Past Medical History: Asthma, Blood Disorder, Chest Pain / Angina, Hearing Disorder / Deafness, Hypertension, Musculoskeletal Disorder, Osteoarthritis (OA), Pneumonia Additional Past Medical History / Comment(s): fluctuating body weight, endometreosis, chronic back pain with pain stimulator, history of iron deficiency,"low rbc's" history of anemia requiring blood transfusions, uti, fa lls and in may with fall had fx to left hip but no sx, dizzy spells, carpal tunnel History of Any Multi-Drug Resistant Organisms: None Reported Past Surgical History: Appendectomy, Bariatric Surgery, Bladder Surgery, Section, Cholecystectomy, Hysterectomy, Tubal Ligation Additional Past Surgical History / Comment(s): bladder suspension, gastric bypass, colon volvulus had exporatory lap w/lysis of adhesions and rt colectomy, urostomy Past Anesthesia/Blood Transfusion Reactions: No Reported Reaction Additional Past Anesthesia/Blood Transfusion Reaction / Comment(s): blood trandfusion- no reaction Past Psychological History: Anxiety, Bipolar, Depression Smoking Status: Current every day smoker Past Alcohol Use History: None Reported Past Drug Use History: None Reported - Past Family History Mother Family Medical History: No Reported History Additional Family Medical History / Comment(s): no history Father Family Medical History: No Reported History Additional Family Medical History / Comment(s): from alcoholism, gout Brother(s) Additional Family Medical History / Comment(s): seizure General Exam Limitations: no limitations General appearance: alert, in no apparent distress Head exam: Present: atraumatic, normocephalic, normal inspection Eye exam: Present: normal appearance, PERRL, EOMI. Absent: scleral icterus, conjunctival injection, periorbital swelling ENT exam: Present: normal exam, normal oropharynx, mucous membranes moist Neck exam: Present: normal inspection, full ROM. Absent: tenderness, mening ismus, lymphadenopathy Respiratory exam: Present: normal lung sounds bilaterally. Absent: respiratory distress, wheezes, rales, rhonchi, stridor Cardiovascular Exam: Present: regular rate, normal rhythm, normal heart sounds. Absent: systolic murmur, diastolic murmur, rubs, gallop, clicks GI/Abdominal exam: Present: soft, tenderness (Mild diffuse), normal bowel sounds. Absent: distended, guarding, rebound, rigid Course Vital Signs 03/11/20 09:54 Temperature 97.9 F Pulse Rate 99 Respiratory 16 Rate Blood Pressure 116/89 O2 Sat by Pulse 99 Oximetry - Reevaluation(s) Reevaluation #1: 03/11/20 12:08 I did go in and reevaluate the patient patient has progressively comfortably sitting up in no signs of distress and no pain. Updated on results Medical Decision Making - Medical Decision Making 59-year-old with chronic abdominal pain presented for reevaluation. Patient has mild dehydration, mild acute kidney injury. Patient has had no vomiting she is tolerated oral intake. Patient checked that she's up with GI and PCP. She does have nitrite positive urine and which she'll be given antibiotics for urine culture was performed. Patient will be discharged with antiemetics orally and rectally. - Lab Data Result diagrams: 03/11/20 10:22 03/11/20 10:22 Lab Results 03/11/20 03/11/20 03/11/20 Range/Units 10:22 10: 10:22 WBC 14.6 H (3.8-10.6) k/uL RBC 4.48 (3.80-5.40) m/uL Hgb 11.7 (11.4-16.0) gm/dL Hct 37.6 (34.0-46.0) % MCV 84.0 (80.0-100.0) fL MCH 26.1 (25.0-35.0) pg MCHC 31.1 (31.0-37.0) g/dL RDW 18.1 H (11.5-15.5) % Plt Count 869 H (150-450) k/uL MPV 7.5 Neutrophils % 88 % Lymphocytes % 6 % Monocytes % 5 % Eosinophils % 0 % Basophils % 1 % Neutrophils # 12.9 H (1.3-7.7) k/uL Lymphocytes # 0.8 L (1.0-4.8) k/uL Monocytes # 0.7 (0-1.0) k/uL Eosinophils # 0.1 (0-0.7) k/uL Basophils # 0.1 (0-0.2) k/uL Hypochromasia Moderate Anisocytosis Slight Sodium 130 L (137-145) mmol/L Potassium 3.6 (3.5-5.1) mmol/L Chloride 103 (98-107) mmol/L Carbon Dioxide 14 L (22-30) mmol/L Anion Gap 13 mmol/L BUN 13 (7-17) mg/dL Creatinine 1.11 H (0.52-1.04) mg/dL Est GFR (CKD-EPI)AfAm 62 (>60 ml/min/1.73 sqM) Est GFR (CKD-EPI)NonAf 54 (>60 ml/min/1.73 sqM) Glucose 144 H (74-99) mg/dL Plasma Lactic Acid [place] (0.7-2.0) mmol/L Calcium 9.2 (8.4-10.2) mg/dL Total Bilirubin 0.4 (0.2-1.3) mg/dL AST 22 (14-36) U/L ALT 10 (4-34) U/L Alkaline Phosphatase 151 H (38-126) U/L Total Protein 7.8 (6.3-8.2) g/dL Albumin 4.0 (3.5-5.0) g/dL Amylase 77 (30-110) U/L Lipase 135 (23-300) U/L Urine Color Yellow Urine Appearance Clear (Clear) Urine pH 6.5 (5.0-8.0) Ur Specific [place] 1.011 (1.001-1.035) Urine Protein 1+ H (Negative) Urine Glucose (UA) Negative (Negative) Urine Ketones Negative (Negative) Urine Blood Negative (Negative) Urine Nitrite Positive H (Negative) Urine Bilirubin Negative (Negative) Urine Urobilinogen <2.0 (<2.0) mg/dL Ur Leukocyte Esterase Small H (Negative) Urine RBC 1 (0-5) /hpf Urine WBC 9 H (0-5) /hpf Amorphous Sediment Occasional H (None) /hpf Urine Bacteria Occasional H (None) /hpf Hyaline Casts 3 H (0-2) /lpf Urine Mucus Rare H (None) /hpf 12/12 Range/Units 10:22 WBC (3.8-10.6) k/uL RBC (3.80-5.40) m/uL Hgb (11.4-16.0) gm/dL Hct (34.0-46.0) % MCV (80.0-100.0) fL MCH (25.0-35.0) pg MCHC (31.0-37.0) g/dL RDW (11.5-15.5) % Plt Count (150-450) k/uL MPV Neutrophils % % Lymphocytes % % Monocytes % % Eosinophils % % Basophils % % Neutrophils # (1.3-7.7) k/uL Lymphocytes # (1.0-4.8) k/uL Monocytes # (0-1.0) k/uL Eosinophils # (0-0.7) k/uL Basophils # (0-0.2) k/uL Hypochromasia Anisocytosis Sodium (137-145) mmol/L Potassium (3.5-5.1) mmol/L Chloride (98-107) mmol/L Carbon Dioxide (22-30) mmol/L Anion Gap mmol/L BUN (7-17) mg/dL Creatinine (0.52-1.04) mg/dL Est GFR (CKD-EPI)AfAm (>60 ml/min/1.73 sqM) Est GFR (CKD-EPI)NonAf (>60 ml/min/1.73 sqM) Glucose (74-99) mg/dL Plasma Lactic Acid [place] 1.4 (0.7-2.0) mmol/L Calcium (8.4-10.2) mg/dL Total Bilirubin (0.2-1.3) mg/dL AST (14-36) U/L ALT (4-34) U/L Alkaline Phosphatase (38-126) U/L Total Protein (6.3-8.2) g/dL Albumin (3.5-5.0) g/dL Amylase (30-110) U/L Lipase (23-300) U/L Urine Color Urine Appearance (Clear) Urine pH (5.0-8.0) Ur Specific [place] (1.001-1.035) Urine Protein (Negative) Urine Glucose (UA) (Negative) Urine Ketones (Negative) Urine Blood (Negative) Urine Nitrite (Negative) Urine Bilirubin (Negative) Urine Urobilinogen (<2.0) mg/dL Ur Leukocyte Esterase (Negative) Urine RBC (0-5) /hpf Urine WBC (0-5) /hpf Amorphous Sediment (None) /hpf Urine Bacteria (None) /hpf Hyaline Casts (0-2) /lpf Urine Mucus (None) /hpf Disposition Clinical Impression: UTI (urinary tract infection), Chronic abdominal pain, Nausea & vomiting, Abdominal pain Disposition: HOME SELF-CARE Condition: Stable Instructions (If sedation given, give patient instructions): Abdominal Pain (ED) Additional Instructions: Please return to the Emergency Department if symptoms worsen or any other concerns. Prescriptions: Nitrofurantoin Monohyd/M-Cryst [Macrobid] 100 mg PO Q12HR #14 cap Promethazine Suppository [Phenergan] 25 mg RECTAL QID PRN #14 supp PRN Reason: Nausea Omeprazole [PriLOSEC] 40 mg PO DAILY #14 cap Ondansetron Odt [Zofran Odt] 4 mg PO Q8HR PRN #14 tab PRN Reason: Nausea Is patient prescribed a controlled substance at d/c from ED?: No Referrals: Brenden Bolanos MD [Primary Care Provider] - 1-2 days Angeline Jackman MD [STAFF PHYSICIAN] - 1-2 days Time of Disposition: 12:11
[2020-03-11] MEDS ORDERED: cefTRIAXone 1,000 MG VIAL (IM USE) IM STA (12:24)
[2020-03-11 12:49] VITALS: BP 114/84; PULSE 94; RESP 18; TEMP 98.3
== END 2020-03-11 12:49 | disposition home or self-care (01) ==
LOC: EC 09:51
DX: N39.0 Urinary tract infection, site not specified (principal); E86.0 Dehydration; J45.909 Unspecified asthma, uncomplicated; F41.9 Anxiety disorder, unspecified; F31.9 Bipolar disorder, unspecified; I10 Essential (primary) hypertension; F17.200 Nicotine dependence, unspecified, uncomplicated; Z79.51 Long term (current) use of inhaled steroids; Z79.899 Other long term (current) drug therapy; Z90.49 Acquired absence of other specified parts of digestive tract; Z90.710 Acquired absence of both cervix and uterus
CPT/HCPCS: 36415; 80053; 82150; 83605; 83690; 85025; 81001; 99284; 96374; 96375; 96372; 96361; J2405; J0696; J1170

== ENCOUNTER 2020-06-02 10:24 | Day surgery (SDC) | payer MEDICARE, OTHER ==
[2020-05-30 10:05] VITALS: BMI 19.8
[~2020-06-02 10:24] MED LIST: LACTATED RINGERS 1,000 ML IV SCH
[2020-06-02 10:59] VITALS: TEMP 98
[2020-06-02] MEDS ORDERED: ONDANSETRON 4 MG/2 ML VIAL ONE ×2 (11:16→13:03)
[2020-06-02] MEDS ORDERED: LIDOCAINE 1% (10MG/ML) FOR IV START INTRADERMA ONE (11:20)
[2020-06-02] MEDS ORDERED: LIDOCAINE 1% INJ 10MG/ML (20 ML MDV) ONE (12:09)
[2020-06-02] MEDS ORDERED: PROPOFOL 10 MG/ML 20 ML VIAL IV ONE (12:09)
--- NOTE | 2020-06-02 12:21 | P.PCN ---
Date of Procedure: 06/02/20 Procedure(s) Performed: BRIEF HISTORY: Patient is a 59-year-old, pleasant, white female scheduled for an upper endoscopy as a part of evaluation of severe epigastric pain for the last 2 months duration. She lost 40 pounds since onset of the symptoms. recent CAT scan of the abdomen and pelvis showed dilated common bile and pancreatic duct but no evidence of pancreatic mass. LFTs are normal. She did have years of the pancreas at [facility] in October 2017 for similar findings that was unremarkable. She also has prior history of gastric bypass surgery. PROCEDURE PERFORMED: Esophagogastroduodenoscopy The biopsy. PREOPERATIVE DIAGNOSIS: Severe epigastric pain and progressive weight loss of 40 pounds of 2 months duration. IV sedation per anesthesia. PROCEDURE: After informed consent was obtained, the patient was brought into the endoscopy unit. IV sedation was administered by Anesthesia under continuous monitoring. Initially the Olympus GIF-140 video endoscope was inserted into the mouth. Esophagus intubated without any difficulty. It was gradually advanced into the stomach. The gastric pouch appeared normal. The Sonia-en-Y anastomosis appeared normal. The scope was advanced into 60 cm into the jejunum that appeared normal. At this time the scope was withdrawn. There was no anastomotic ulcers The pathology.. The scope was then withdrawn into the esophagus. The GE junction was located at 35 cm from the incisors. Small hiatal hernia noted. The esophagus appeared normal. There were no erosions or ulcerations seen Biopsies were done from the distal esophagus and the patient tolerated the procedure well. IMPRESSION: 1. Normal gastric pouch with Sonia-en-Y anastomosis. No evidence of or anastomotic ulcer 2. Small hiatal hernia. RECOMMENDATIONS: The findings of this examination were discussed with the patient as well as a family. She was advised to follow with the biopsy results. In the meantime because of the severe ongoing symptoms , recommended surgical evaluation by Dr. Alvarado..
[2020-06-02] MEDS ORDERED: ONDANSETRON 4 MG/2 ML VIAL IVP ONE (13:04)
[2020-06-02 13:09] VITALS: BP 120/71; PULSE 90; RESP 20
== END 2020-06-02 13:32 | disposition home or self-care (01) ==
LOC: ORWHC2ENDO 10:24
PROVIDERS: ATTEND Internal Medicine Gastroenterology
DX: K20.90 Esophagitis, unspecified without bleeding (principal); K44.9 Diaphragmatic hernia without obstruction or gangrene; R10.13 Epigastric pain; J45.909 Unspecified asthma, uncomplicated; F17.210 Nicotine dependence, cigarettes, uncomplicated; Z79.899 Other long term (current) drug therapy; Z98.84 Bariatric surgery status
CPT/HCPCS: 88305; 43239; J2405; J2001; J2704

== ENCOUNTER 2020-06-28 20:26 | Inpatient (IN) | payer MEDICARE, OTHER ==
[2020-06-28 22:18] LABS: Amorphous Sediment,Urine Rare /hpf; Appearance,Urine Clear (Clear); Bacteria,Urine Moderate /hpf; Bilirubin,Urine Negative (Negative); Blood,Urine Trace (Negative); Color,Urine Light Yellow; Glucose,Urine (UA) Negative (Negative); Ketones,Urine Negative (Negative); Leukocyte Esterase,Urine Large (Negative); Nitrite,Urine Negative (Negative); PH, Urine 7.5 (5.0-8.0); Protein,Urine 1+ (Negative); RBC,Urine 4 /hpf (0-5); Specific Gravity,Urine 1.011 (1.001-1.035); Squamous Epithelial Cell,Urine <1 /hpf (0-4); Urobilinogen,Urine <2.0 mg/dL (<2.0); WBC,Urine 37 /hpf (0-5)
[2020-06-28] MEDS ORDERED: SODIUM CHLORIDE 0.9% 1,000 ML IV STA ×2 (23:37)
[2020-06-28] MEDS ORDERED: MORPHINE SULFATE 4 MG/ML SYRINGE IV STA (23:37)
[2020-06-28] MEDS ORDERED: ONDANSETRON 4 MG/2 ML VIAL IVP STA (23:37)
--- NOTE | 2020-06-28 23:40 | ED ---
Abdominal Pain HPI - General Chief Complaint: Abdominal Pain Stated Complaint: ABD pain Time Seen by Provider: 06/28/20 23:10 Source: patient, RN notes reviewed, old records reviewed Mode of arrival: ambulatory Limitations: no limitations - History of Present Illness Initial Comments: This is a 59-year-old female to the ER for evaluation of severe abdominal pain diffuse and bilateral abdominal pain with significant swelling distention, no modifying factors for pain. Pain continues to get worse. Symptoms for a few weeks now. Patient is without fever. Decreased bowel movements MD Complaint: abdominal pain -: week(s) Location: diffuse Radiation: none Severity: severe Severity scale (1-10): 9 Quality: cramping, stabbing, aching Consistency: intermittent Improves With: nothing Worsens With: nothing Context: recent surgery/procedure Associated Symptoms: denies other symptoms - Related Data Home Medications Medication Instructions Recorded Confirmed DULoxetine HCL [Cymbalta] 60 mg PO BID 03/21/16 06/29/20 SUMAtriptan SUCCINATE [Imitrex] 100 mg PO DAILY PRN 03/21/16 06/29/20 carBAMazepine [TEGretol] 400 mg PO BID 03/21/16 06/29/20 Metoprolol Tartrate 25 mg PO BID 02/02/19 06/29/20 busPIRone HCL 15 mg PO TID 02/02/19 06/29/20 ALPRAZolam [Xanax] 1 mg PO QID 04/20/19 06/29/20 Dicyclomine HCl 20 mg PO TID PRN 04/20/19 06/29/20 Fluticasone Nasal [place] [Flonase 1 spray EA NOSTRIL DAILY 04/20/19 06/29/20 Nasal [place]] Albuterol Inhaler [Ventolin Hfa 2 puff INHALATION RT-Q4H PRN 08/04/19 06/29/20 Inhaler] Butalb/APAP/Caff 50-325-40Mg 1 tab PO Q4H PRN 08/04/19 06/29/20 [Fioricet 50-325-40] traZODone HCL [Desyrel] 100 mg PO HS 08/04/19 06/29/20 Pravastatin Sodium [Pravachol] 10 mg PO HS 12/14/19 06/29/20 Tiotropium 18 Mcg/Puff [Spiriva] 1 puff INHALATION RT-DAILY 12/14/19 06/29/20 HYDROcodone/APAP 10-325MG [[place] 1 tab PO BID PRN 02/14/20 06/29/20 10-325] Promethazine [Phenergan] 25 mg PO Q12H PRN 02/14/20 06/29/20 Acetaminophen Tab [Tylenol] 650 mg PO Q4H PRN 03/11/20 06/29/20 Ascorbic Acid [Vitamin C] 1,000 mg PO DAILY 03/11/20 06/29/20 Glucosam/Mukund-Msm1/C/Steve/Bosw 1 tab PO DAILY 03/11/20 06/29/20 [Glucosamine-Chondroitin Tablet] Multivitamins, Thera [Multivitamin 1 tab PO DAILY 03/11/20 06/29/20 (formulary)] Cholecalciferol [Vitamin D3 (25 25 mcg PO DAILY 05/30/20 06/29/20 Mcg = 1000 Iu)] Zinc 50 mg PO DAILY 05/30/20 06/29/20 Diphenoxylate HCl/Atropine 1 - 2 tab PO QID PRN 06/29/20 06/29/20 [Lomotil 2.5-0.025 mg Tablet] amLODIPine [Norvasc] 10 mg PO DAILY 06/29/20 06/29/20 lisinopriL 40 mg PO DAILY 06/29/20 06/29/20 Previous Rx's Medication Instructions Recorded Ondansetron [Zofran] 4 mg PO Q8HR PRN #20 tab 08/10/19 Pantoprazole [Protonix] 40 mg PO BID #60 tab 12/16/19 Omeprazole [PriLOSEC] 40 mg PO DAILY #14 cap 03/11/20 Allergies Allergy/AdvReac Type Severity Reaction Status Date / Time No Known Allergies Allergy Verified 06/29/20 06:53 Review of Systems ROS Statement: Those systems with pertinent positive or pertinent negative responses have been documented in the HPI. ROS Other: All systems not noted in ROS Statement are negative. Past Medical History Past Medical History: Asthma, Blood Disorder, Chest Pain / Angina, Hearing Disorder / Deafness, Hypertension, Musculoskeletal Disorder, Osteoarthritis (O A), Pneumonia Additional Past Medical History / Comment(s): fluctuating body weight, chronic back pain with pain stimulator, history of iron deficiency,"low rbc's" & anemia requiring blood transfusions, uti, Hx falls & fx to left hip but no sx, dizzy spells, carpal tunnel, BOWEL OBSTRUCTIONS, pt has urostomy., States nausea and vomiting with abd pain-wt loss of 40 # History of Any Multi-Drug Resistant Organisms: None Reported Past Surgical History: Appendectomy, Bariatric Surgery, Bladder Surgery, Breast Surgery, Section, Cholecystectomy, Hysterectomy, Tubal Ligation Additional Past Surgical History / Comment(s): bladder suspension,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, gastric bypass, colon volvulus had exporatory lap w/lysis of adhesions and rt colectomy, urostomy Past Anesthesia/Blood Transfusion Reactions: No Reported Reaction Additional Past Anesthesia/Blood Transfusion Reaction / Comment(s): blood trandfusion- no reaction Past Psychological History: Anxiety, Bipolar, Depression Smoking Status: Current every day smoker Past Alcohol Use History: None Reported Past Drug Use History: None Reported - Past Family History Mother Family Medical History: No Reported History Additional Family Medical History / Comment(s): no history Father Family Medical History: No Reported History Additional Family Medical History / Comment(s): from alcoholism, gout Brother(s) Additional Family Medical History / Comment(s): seizure General Exam Limitations: no limitations General appearance: alert, in no apparent distress, anxious Head exam: Present: atraumatic, normocephalic, normal inspection Eye exam: Present: normal appearance, PERRL, EOMI. Absent: scleral icterus, conjunctival injection, periorbital swelling ENT exam: Present: normal exam, mucous membranes moist Neck exam: Present: normal inspection. Absent: tenderness, meningismus, lymphadenopathy Respiratory exam: Present: normal lung sounds bilaterally. Absent: respiratory distress, wheezes, rales, rhonchi, stridor Cardiovascular Exam: Present: regular rate, normal rhythm, normal heart sounds. Absent: systolic murmur, diastolic murmur, rubs, gallop, clicks GI/Abdominal exam: Present: distended, tenderness, guarding, normal bowel sounds. Absent: rebound, rigid Extremities exam: Present: normal inspection, full ROM, normal capillary refill. Absent: tenderness, pedal edema, joint swelling, calf tenderness Back exam: Present: normal inspection Neurological exam: Present: alert, oriented X3, CN II-XII intact Psychiatric exam: Present: normal affect, normal mood Skin exam: Present: warm, dry, intact, normal color. Absent: rash Course Vital Signs 06/28/20 06/29/20 06/29/20 21:44 01:37 05:28 Temperature 98.1 F 97.1 F L Pulse Rate 98 87 91 Respiratory 20 20 18 Rate Blood Pressure 151/97 144/96 137/98 O2 Sat by Pulse 100 100 98 Oximetry - Reevaluation(s) Reevaluation #1: Medical record is reviewed Patient has persistent significant abdominal pain here in the ER Spoke patient regarding findings and results questions answered Medical Decision Making - Medical Decision Making 59 female to be admitted for intractable nausea and vomiting with abdominal pain. Patient is a postop patient - Lab Data Result diagrams: 07/05/20 05:22 07/05/20 05:22 Lab Results 06/28/20 06/29/20 06/29/20 Range/Units 22:01 00:04 00:04 WBC 16.3 H (3.8-10.6) k/uL RBC 2.99 L (3.80-5.40) m/uL Hgb 8.2 L (11.4-16.0) gm/dL Hct 26.0 L (34.0-46.0) % MCV 87.0 (80.0-100.0) fL MCH 27.4 (25.0-35.0) pg MCHC 31.5 (31.0-37.0) g/dL RDW 17.7 H (11.5-15.5) % Plt Count 930 H (150-450) k/uL MPV 7.4 Neutrophils % 87 % Lymphocytes % 5 % Monocytes % 5 % Eosinophils % 2 % Basophils % 0 % Neutrophils # 14.2 H (1.3-7.7) k/uL Lymphocytes # 0.9 L (1.0-4.8) k/uL Monocytes # 0.9 (0-1.0) k/uL Eosinophils # 0.3 (0-0.7) k/uL Basophils # 0.1 (0-0.2) k/uL Hypochromasia Moderate Poikilocytosis Slight Anisocytosis Slight Sodium 132 L (137-145) mmol/L Potassium 5.3 H (3.5-5.1) mmol/L Chloride 103 (98-107) mmol/L Carbon Dioxide 20 L (22-30) mmol/L Anion Gap 9 mmol/L BUN 29 H (7-17) mg/dL Creatinine 1.29 H (0.52-1.04) mg/dL Est GFR (CKD-EPI)AfAm 52 (>60 ml/min/1.73 sqM) Est GFR (CKD-EPI)NonAf 45 (>60 ml/min/1.73 sqM) Glucose 108 H (74-99) mg/dL Plasma Lactic Acid Jas[place] (0.7-2.0) mmol/L Calcium 9.1 (8.4-10.2) mg/dL Total Bilirubin 0.3 (0.2-1.3) mg/dL AST 16 (14-36) U/L ALT 12 (4-34) U/L Alkaline Phosphatase 174 H (38-126) U/L Total Protein 6.9 (6.3-8.2) g/dL Albumin 3.7 (3.5-5.0) g/dL Amylase 243 H (30-110) U/L Lipase 185 (23-300) U/L Urine Color Light Yellow Urine Appearance Clear (Clear) Urine pH 7.5 (5.0-8.0) Ur Specific [place] 1.011 (1.001-1.035) Urine Protein 1+ H (Negative) Urine Glucose (UA) Negative (Negative) Urine Ketones Negative (Negative) Urine Blood Trace H (Negative) Urine Nitrite Negative (Negative) Urine Bilirubin Negative (Negative) Urine Urobilinogen <2.0 (<2.0) mg/dL Ur Leukocyte Esterase Large H (Negative) Urine RBC 4 (0-5) /hpf Urine WBC 37 H (0-5) /hpf Ur Squamous Epith Cells <1 (0-4) /hpf Amorphous Sediment Rare H (None) /hpf Urine Bacteria Moderate H (None) /hpf Coronavirus (PCR) (Not Detectd) 06/29/20 06/29/20 06/30/20 Range/Units 00:04 04:27 05:45 WBC 8.0 (3.8-10.6) k/uL RBC 2.84 L (3.80-5.40) m/uL Hgb 7.8 L (11.4-16.0) gm/dL Hct 24.8 L (34.0-46.0) % MCV 87.5 (80.0-100.0) fL MCH 27.5 (25.0-35.0) pg MCHC 31.4 (31.0-37.0) g/dL RDW 17.7 H (11.5-15.5) % Plt Count 838 H (150-450) k/uL MPV 6.3 Neutrophils % 77 % Lymphocytes % 11 % Monocytes % 7 % Eosinophils % 4 % Basophils % 1 % Neutrophils # 6.2 (1.3-7.7) k/uL Lymphocytes # 0.9 L (1.0-4.8) k/uL Monocytes # 0.5 (0-1.0) k/uL Eosinophils # 0.3 (0-0.7) k/uL Basophils # 0.0 (0-0.2) k/uL Hypochromasia Moderate Poikilocytosis Slight Anisocytosis Slight Sodium (137-145) mmol/L Potassium (3.5-5.1) mmol/L Chloride (98-107) mmol/L Carbon Dioxide (22-30) mmol/L Anion Gap mmol/L BUN (7-17) mg/dL Creatinine (0.52-1.04) mg/dL Est GFR (CKD-EPI)AfAm (>60 ml/min/1.73 sqM) Est GFR (CKD-EPI)NonAf (>60 ml/min/1.73 sqM) Glucose (74-99) mg/dL Plasma Lactic Acid [place] 1.1 (0.7-2.0) mmol/L Calcium (8.4-10.2) mg/dL Total Bilirubin (0.2-1.3) mg/dL AST (14-36) U/L ALT (4-34) U/L Alkaline Phosphatase (38-126) U/L Total Protein (6.3-8.2) g/dL Albumin (3.5-5.0) g/dL Amylase (30-110) U/L Lipase (23-300) U/L Urine Color Urine Appearance (Clear) Urine pH (5.0-8.0) Ur Specific [place] (1.001-1.035) Urine Protein (Negative) Urine Glucose (UA) (Negative) Urine Ketones (Negative) Urine Blood (Negative) Urine Nitrite (Negative) Urine Bilirubin (Negative) Urine Urobilinogen (<2.0) mg/dL Ur Leukocyte Esterase (Negative) Urine RBC (0-5) /hpf Urine WBC (0-5) /hpf Ur Squamous Epith Cells (0-4) /hpf Amorphous Sediment (None) /hpf Urine Bacteria (None) /hpf Coronavirus (PCR) Not Detected (Not Detectd) 06/30/20 Range/Units 05:45 WBC (3.8-10.6) k/uL RBC (3.80-5.40) m/uL Hgb (11.4-16.0) gm/dL Hct (34.0-46.0) % MCV (80.0-100.0) fL MCH (25.0-35.0) pg MCHC (31.0-37.0) g/dL RDW (11.5-15.5) % Plt Count (150-450) k/uL MPV Neutrophils % % Lymphocytes % % Monocytes % % Eosinophils % % Basophils % % Neutrophils # (1.3-7.7) k/uL Lymphocytes # (1.0-4.8) k/uL Monocytes # (0-1.0) k/uL Eosinophils # (0-0.7) k/uL Basophils # (0-0.2) k/uL Hypochromasia Poikilocytosis Anisocytosis Sodium 135 L (137-145) mmol/L Potassium 4.7 (3.5-5.1) mmol/L Chloride 108 H (98-107) mmol/L Carbon Dioxide 22 (22-30) mmol/L Anion Gap 5 mmol/L BUN 15 (7-17) mg/dL Creatinine 1.11 H (0.52-1.04) mg/dL Est GFR (CKD-EPI)AfAm 62 (>60 ml/min/1.73 sqM) Est GFR (CKD-EPI)NonAf 54 (>60 ml/min/1.73 sqM) Glucose 96 (74-99) mg/dL Plasma Lactic Acid [place] (0.7-2.0) mmol/L Calcium 8.7 (8.4-10.2) mg/dL Total Bilirubin 0.3 (0.2-1.3) mg/dL AST 12 L (14-36) U/L ALT 8 (4-34) U/L Alkaline Phosphatase 153 H (38-126) U/L Total Protein 5.8 L (6.3-8.2) g/dL Albumin 2.8 L (3.5-5.0) g/dL Amylase (30-110) U/L Lipase (23-300) U/L Urine Color Urine Appearance (Clear) Urine pH (5.0-8.0) Ur Specific [place] (1.001-1.035) Urine Protein (Negative) Urine Glucose (UA) (Negative) Urine Ketones (Negative) Urine Blood (Negative) Urine Nitrite (Negative) Urine Bilirubin (Negative) Urine Urobilinogen (<2.0) mg/dL Ur Leukocyte Esterase (Negative) Urine RBC (0-5) /hpf Urine WBC (0-5) /hpf Ur Squamous Epith Cells (0-4) /hpf Amorphous Sediment (None) /hpf Urine Bacteria (None) /hpf Coronavirus (PCR) (Not Detectd) - Radiology Data Radiology results: report reviewed (CT abdomen and pelvis shows large stool Kathy in with bilateral hydronephrosis), image reviewed Disposition Clinical Impression: Intractable vomiting, History of gastric bypass, Abdominal pain, UTI (urinary tract infection) Disposition: ADMITTED IP TO THIS HOSP Condition: Fair Is patient prescribed a controlled substance at d/c from ED?: No
[2020-06-29 00:53] LABS: Anisocytosis Slight; Basophils # (A) 0.1 k/uL (0-0.2); Basophils % (A) 0 %; Eosinophils # (A) 0.3 k/uL (0-0.7); Eosinophils % (A) 2 %; HGB 8.2 gm/dL (11.4-16.0); Hypochromasia Moderate; Lymphocytes # (A) 0.9 k/uL (1.0-4.8); Lymphocytes % (A) 5 %; MCH 27.4 pg (25.0-35.0); MCHC 31.5 g/dL (31.0-37.0); Mean Platelet Volume 7.4; Monocytes # (A) 0.9 k/uL (0-1.0); Monocytes % (A) 5 %; Neutrophils # (A) 14.2 k/uL (1.3-7.7); Neutrophils % (A) 87 %; Platelet Count 930 k/uL (150-450); Poikilocytosis Slight; RBC 2.99 m/uL (3.80-5.40); RDW 17.7 % (11.5-15.5); WBC 16.3 k/uL (3.8-10.6)
[2020-06-29 01:30] LABS: Albumin 3.7 g/dL (3.5-5.0); Calcium 9.1 mg/dL (8.4-10.2); Potassium 5.3 mmol/L (3.5-5.1); Total Bilirubin 0.3 mg/dL (0.2-1.3); Total Protein 6.9 g/dL (6.3-8.2)
--- NOTE | 2020-06-29 02:17 | CT ---
EXAM: CT Abdomen and Pelvis Without Intravenous Contrast CLINICAL HISTORY: ITS.REASON CT Reason: abdominal pain TECHNIQUE: Axial computed tomography images of the abdomen and pelvis without intravenous contrast. CTDI is 6.57 mGy and DLP is 350.2 mGy-cm. This CT exam was performed using one or more of the following dose reduction techniques: automated exposure control, adjustment of the mA and/or kV according to patient size, and/or use of iterative reconstruction technique. COMPARISON: 12/14/2019 FINDINGS: Lung bases: Bilateral breast implants in place. No mass. No consolidation. ABDOMEN: Liver: Hepatomegaly. Gallbladder and bile ducts: Surgically absent. Dilated intrahepatic and extrahepatic biliary ducts, with common bile duct measuring up to 20 mm in diameter, unchanged from 12/14/2019. Pancreas: Unremarkable. No ductal dilation. Spleen: Unremarkable. No splenomegaly. Adrenals: Unremarkable. No mass. Kidneys and ureters: Moderate bilateral hydroureteronephrosis, new from prior study. Stomach and bowel: Postsurgical changes from prior gastric surgery with a gastrojejunal anastomosis in the epigastrium, jejunojejunal anastomosis in the left upper quadrant, and additional anastomoses in the right lower quadrant. And colonic resection with anastomosis in the right lower quadrant. No obstruction. No mucosal thickening. Large fecal burden throughout the colon. Right lower quadrant ostomy in place. Throughout the colon. PELVIS: Reproductive: Status post hysterectomy. ABDOMEN and PELVIS: Intraperitoneal space: Unremarkable. No free air. No significant fluid collection. Bones/joints: No acute fracture. No dislocation. Soft tissues: Left flank neurostimulator generator in place with leads terminating above [id number]. Surgical clips along the right pelvic sidewall. Vasculature: Mild calcific atherosclerotic plaque of the infrarenal abdominal aorta and bilateral common iliac artery branches.. No abdominal aortic aneurysm. Lymph nodes: Unremarkable. No enlarged lymph nodes. IMPRESSION: 1. Moderate bilateral hydroureteronephrosis, new from prior study. 2. Dilated intrahepatic and extrahepatic biliary ducts, with common bile duct measuring up to 20 mm in diameter, unchanged from 12/14/2019. Status post cholecystectomy. 3. Postsurgical changes from prior gastric bypass and small bowel surgeries. No evidence of bowel obstruction. Large fecal burden throughout the colon. Right lower quadrant ostomy in place.
[2020-06-29] MEDS ORDERED: MORPHINE SULFATE 4 MG/ML SYRINGE IVP PRN (02:50)
[2020-06-29] MEDS ORDERED: MORPHINE SULFATE 4 MG/ML SYRINGE IVP STA (02:50)
[2020-06-29] MEDS ORDERED: HYDROmorphone 1 MG/ML 1 ML SYRINGE IVP STA ×2 (03:00→03:14)
[2020-06-29] MEDS ORDERED: HYDROmorphone 1 MG/ML 1 ML SYRINGE IVP PRN (03:14)
[2020-06-29] MEDS ORDERED: NALOXONE 0.4 MG/ML 1 ML VIAL IV PRN (03:14)
[2020-06-29] MEDS: SODIUM CHLORIDE 0.9% 1,000 ML IV SCH ×2 (05:34→12:06)
[2020-06-29] MEDS: HYDROmorphone 1 MG/ML 1 ML SYRINGE IVP PRN ×5 (09:02→22:28)
[2020-06-29] MEDS: NICOTINE 14MG/24HR PATCH TRANSDERM SCH (11:03)
[2020-06-29] MEDS: ONDANSETRON 4 MG/2 ML VIAL IVP PRN (11:20)
[2020-06-29 13:12] VITALS: BMI 21.4
[2020-06-29] MEDS: METOPROLOL TARTRATE 25 MG TAB PO SCH (14:14)
[2020-06-29] MEDS: HEPARIN SODIUM,PORCINE/PF 5,000 UNIT/0.5 ML SYRINGE SQ SCH (14:15)
[2020-06-29] MEDS: PANTOPRAZOLE 40 MG/10 ML VIAL IVP SCH (14:15)
[2020-06-29] MEDS: busPIRone HCl 5 MG TAB PO SCH ×2 (14:15→22:02)
[2020-06-29] MEDS: ALPRAZolam 1 MG TAB PO SCH ×2 (14:15→22:02)
[2020-06-29] MEDS: DULoxetine HCL 60 MG CAPSULE.DR PO SCH (14:15)
[2020-06-29] MEDS: lisinopriL 20 MG TAB PO SCH (14:27)
[2020-06-29] MEDS: PIPERACILLIN-TAZOBACTAM 3.375 GM in SODIUM CHLORIDE 0.9% 100 ML IVPB SCH ×2 (14:27→22:12)
--- NOTE | 2020-06-29 14:45 | HP ---
HISTORY AND PHYSICAL DATE OF SERVICE: 06/29/2020 CHIEF COMPLAINT: Abdominal pain. HISTORY OF PRESENT ILLNESS: This 59-year-old woman with a past medical history of multiple medical problems including history of asthma, history of chest pain, history of DJD, history of pneumonia, history of fluctuating body weight, history of bariatric surgery being followed by Dr. Bolanos in the outpatient setting, was complaining of abdominal pain. The patient also had features of UTI. The pain was diffusely situated. The patient also had a urostomy bag at this time. There is no history of fever. COVID-19 was negative. The patient underwent a CAT scan of the abdomen and pelvis in the ER which showed moderate bilateral hydroureteronephrosis new from prior study and dilated intrahepatic and extrahepatic biliary ducts and postsurgical changes from prior gastric bypass surgery. The patient admitted for further evaluation and treatment. There is no history any fever, any rigors, chills at this time. 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 MEDICATIONS: Home medications are: 1. Lisinopril. 2. Norvasc. 3. Lomotil. 4. Desyrel. 5. Tegretol. 6. Buspirone. 7. Zinc. 8. Spiriva. 9. Imitrex. 10.Pravachol. 11.Protonix. 12.Zofran. 13.Prilosec. 14.Multivitamin. 15.[place]iver. 16.Flonase. 17.Cymbalta. 18.Vitamin D3. 19.Fioricet. 20.Ventolin. 21.Xanax. ALLERGIES: None. FAMILY HISTORY: No history of heart disease or strokes in the family. SOCIAL HISTORY: Previous history of smoking. No history of alcohol intake. REVIEW OF SYSTEMS: ENT: No diminished hearing or diminished vision. CARDIOVASCULAR SYSTEM: No angina. RESPIRATORY SYSTEM: No cough or hemoptysis. GI: As mentioned earlier. : As mentioned earlier. NERVOUS SYSTEM: No numbness or weakness. ALLERGY/IMMUNOLOGY: Asthma. MUSCULOSKELETAL: As mentioned earlier. HEMATOLOGY: No history of anemia. ENDOCRINE: No history of diabetes or hypothyroidism. CONSTITUTIONAL: As mentioned earlier. DERMATOLOGY: Negative. RHEUMATOLOGY: Negative. PSYCHIATRY: As mentioned earlier. PHYSICAL EXAMINATION: The patient is alert and oriented x3. Pulse 88, blood pressure 141/83, respirations 16, temperature 98.1, pulse ox 96% on room air. HEENT: Conjunctivae normal. NECK: No jugular venous distention. CARDIOVASCULAR: S1, S2 muffled. RESPIRATORY: Breath sounds diminished at the bases. Bilateral scattered rhonchi. ABDOMEN: Soft, mild diffuse distention, mild diffuse tenderness present in the left lower quadrant. Urostomy present otherwise. LEGS: No edema, no swelling. NERVOUS SYSTEM: Higher function as mentioned earlier. Moves all 4 limbs. No focal motor or sensory deficits. LYMPHATICS: No lymphadenopathy of the neck, axillae or groin. SKIN: No ulcer, rash or bleeding. JOINTS: No active deforming arthropathy. LABS: WBC 16.3, hemoglobin is 8.2, sodium 132, potassium 5.3, creatinine is 1.29. ASSESSMENT: 1. Abdominal pain with acute urinary tract infection with sepsis, present on admission. 2. Acute renal failure with acute tubular necrosis and prerenal renal failure. 3. Moderate bilateral hydroureteronephrosis from the CAT scan. 4. Dilated intrahepatic and extrahepatic ducts on the CT scan. 5. Post surgical changes of the gastric bypass and small bowel surgeries. 6. Intractable vomiting. 7. Increased WBC. 8. Anemia, normocytic. 9. Increased platelets. 10.Hyponatremia. 11.Hyperkalemia. 12.Elevated alkaline phosphatase. 13.Increased amylase. 14.History of asthma. 15.History of chest pain. 16.Hypertension. 17.History of degenerative joint disease. 18.History of pneumonia. 19.History of fluctuating body weight. 20.History of transfusions. 21.History of bowel obstructions. 22.History of bladder resection because of long-standing indwelling catheter. 23.History of gastric bypass. 24.History of colonic volvulus. 25.History of anxiety, bipolar, depression. 26.History of nicotine dependence. 27.FULL CODE. RECOMMENDATIONS AND DISCUSSION: This 59-year-old woman who presented with multiple complex medical issues, we will monitor the patient closely. Continue the current medications, continue symptomatic treatment. Will initiate broad-spectrum IV antibiotics. Obtain the cultures, urine culture. I would also recommend surgical and urology consultations also. Prognosis guarded because of multiple complex medical issues. Further recommendations to follow. A copy of this dictation is being forwarded to Dr. Bolanos who is the primary physician. See orders for further details. The patient is on multiple home medications. Medications are reconciled and carefully restarted at this time. Prognosis guarded. DVT prophylaxis. See orders for details. Proton pump inhibitors. MMODL / IJN: [id number] /
--- NOTE | 2020-06-29 15:09 | P.GSCN ---
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 Patient presents to the emergency room with complaints of lower abdominal pain with abdominal distention for the past week. She did have an episode of vomiting yesterday. Patient does report that she has been having bowel movements. Her last bowel movement was yesterday morning. She has had a decrease in appetite. She is passing some gas. She had a computed tomography scan of the abdomen and pelvis which showed moderate bilateral hydronephrosis. Dilated intrahepatic and extrahepatic biliary ducts with common bile duct measuring up to 20 mm in diameter unchanged from prior study. Status post cholecystectomy. Postsurgical changes from prior gastric bypass and small bowel surgeries. No evidence of bowel obstruction. Large fecal burden throughout the colon. Patient denies any fever or chills or sweats. She denies any burning with urination. She was found have evidence of UTI is on antibiotics. Surgical service was consulted regarding abdominal pain. PAST MEDICAL HISTORY: See list. PAST SURGICAL HISTORY: See list. MEDICATIONS: See list. ALLERGIES: See list. SOCIAL HISTORY: No illicit drug use. REVIEW OF SYSTEMS: CONSTITUTIONAL: Denies fever or chills. HEENT: Denies blurred vision, vision changes, or eye pain. Denies hemoptysis CARDIOVASCULAR: Denies chest pain or pressure. RESPIRATORY: No shortness of breath. GASTROINTESTINAL: See HPI for pertinent findings HEMATOLOGIC: Denies bleeding disorders. GENITOURINARY: Denies any blood in urine or increased urinary frequency. SKIN: Denies pruitis. Denies rash. PHYSICAL EXAM: VITAL SIGNS: Reviewed GENERAL: Well-developed in no acute distress. HEENT: No sclera icterus. Extraocular movements grossly intact. Moist buccal mucosa. Head is atraumatic, normocephalic. No nasal drainage. ABDOMEN: Soft. Distended. Patient has tenderness to palpation of the lower abdomen. She has a urostomy and right side of the abdomen. NEUROLOGIC: Alert and oriented. Cranial nerves II through XII grossly intact. LABORATORY DATA: WBC 16.3 Hgb 8.2 platelets 9:30 sodium 132 potassium 5.3 BUN is 29 creatinine is 1.29 Urinalysis positive for UTI IMAGING: computed tomography scan of the abdomen and pelvis which showed moderate bilateral hydronephrosis. Dilated intrahepatic and extrahepatic biliary ducts with common bile duct measuring up to 20 mm in diameter unchanged from prior study. Status post cholecystectomy. Postsurgical changes from prior gastric bypass and small bowel surgeries. No evidence of bowel obstruction. Large fecal burden throughout the colon. ASSESSMENT: 1. Abdominal pain possibly due to large fecal burden throughout the colon 2. History of Multiple abdominal surgeries 3. Moderate bilateral hydronephrosis 4. UTI PLAN: -Soap esther enemas x3 ordered for large fecal burden -Agree with urology consult -Continue supportive care -Start full liquid diet -Continue antibiotics for UTI -No surgical intervention planned Thank you for this consultation Physician Wine Master note has been reviewed by physician. Signing provider agrees with the documented findings, assessment, and plan of care. Past Medical History Past Medical History: Asthma, Blood Disorder, Chest Pain / Angina, Hearing Disorder / Deafness, Hypertension, Musculoskeletal Disorder, Osteoarthritis (OA), Pneumonia Additional Past Medical History / Comment(s): fluctuating body weight, chronic back pain with pain stimulator, history of iron deficiency,"low rbc's" & anemia requiring blood transfusions, uti, Hx falls & fx to left hip but no sx, dizzy spells, carpal tunnel, BOWEL OBSTRUCTIONS, pt has urostomy., States nausea and vomiting with abd pain-wt loss of 40 # History of Any Multi-Drug Resistant Organisms: None Reported Past Surgical History: Appendectomy, Bariatric Surgery, Bladder Surgery, Breast Surgery, Section, Cholecystectomy, Hysterectomy, Tubal Ligation Additional Past Surgical History / Comment(s): bladder suspension,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, gastric bypass, colon volvulus had exporatory lap w/lysis of adhesions and rt colectomy, urostomy Past Anesthesia/Blood Transfusion Reactions: No Reported Reaction Additional Past Anesthesia/Blood Transfusion Reaction / Comm: blood transfusion- no reaction Past Psychological History: Anxiety, Bipolar, Depression Smoking Status: Current every day smoker Past Alcohol Use History: None Reported Additional Past Alcohol Use History / Comment(s): started smoking at age 16(1976) smoked 2 ppd, quit 1998, restarted smoking recently -smoking 1/2ppd Past Drug Use History: None Reported - Past Family History Mother Family Medical History: No Reported History Additional Family Medical History / Comment(s): no history Father Family Medical History: No Reported History Additional Family Medical History / Comment(s): from alcoholism, gout Brother(s) Additional Family Medical History / Comment(s): seizure Medications and Allergies Home Medications Medication Instructions Recorded Confirmed Type DULoxetine HCL [Cymbalta] 60 mg PO BID 03/21/16 06/29/20 History SUMAtriptan SUCCINATE [Imitrex] 100 mg PO DAILY PRN 03/21/16 06/29/20 History carBAMazepine [TEGretol] 400 mg PO BID 03/21/16 06/29/20 History Metoprolol Tartrate 25 mg PO BID 02/02/19 06/29/20 History busPIRone HCL 15 mg PO TID 02/02/19 06/29/20 History ALPRAZolam [Xanax] 1 mg PO QID 04/20/19 06/29/20 History Dicyclomine HCl 20 mg PO TID PRN 04/20/19 06/29/20 History Fluticasone Nasal [place] [Flonase 1 spray EA NOSTRIL DAILY 04/20/19 06/29/20 History Nasal [place]] Albuterol Inhaler [Ventolin Hfa 2 puff INHALATION RT-Q4H PRN 08/04/19 06/29/20 History Inhaler] Butalb/APAP/Caff 50-325-40Mg 1 tab PO Q4H PRN 08/04/19 06/29/20 History [Fioricet 50-325-40] traZODone HCL [Desyrel] 100 mg PO HS 08/04/19 06/29/20 History Ondansetron [Zofran] 4 mg PO Q8HR PRN #20 tab 08/10/19 06/29/20 Rx Pravastatin Sodium [Pravachol] 10 mg PO HS 12/14/19 06/29/20 History Tiotropium 18 Mcg/Puff [Spiriva] 1 puff INHALATION RT-DAILY 12/14/19 06/29/20 History Pantoprazole [Protonix] 40 mg PO BID #60 tab 12/16/19 06/29/20 Rx HYDROcodone/APAP 10-325MG [[place] 1 tab PO BID PRN 02/14/20 06/29/20 History 10-325] Promethazine [Phenergan] 25 mg PO Q12H PRN 02/14/20 06/29/20 History Acetaminophen Tab [Tylenol] 650 mg PO Q4H PRN 03/11/20 06/29/20 History Ascorbic Acid [Vitamin C] 1,000 mg PO DAILY 03/11/20 06/29/20 History Glucosam/Mukund-Msm1/C/Steve/Bosw 1 tab PO DAILY 03/11/20 06/29/20 History [Glucosamine-Chondroitin Tablet] Multivitamins, Thera [Multivitamin 1 tab PO DAILY 03/11/20 06/29/20 History (formulary)] Omeprazole [PriLOSEC] 40 mg PO DAILY #14 cap 03/11/20 06/29/20 Rx Cholecalciferol [Vitamin D3 (25 25 mcg PO DAILY 05/30/20 06/29/20 History Mcg = 1000 Iu)] Zinc 50 mg PO DAILY 05/30/20 06/29/20 History Diphenoxylate HCl/Atropine 1 - 2 tab PO QID PRN 06/29/20 06/29/20 History [Lomotil 2.5-0.025 mg Tablet] amLODIPine [Norvasc] 10 mg PO DAILY 06/29/20 06/29/20 History lisinopriL 40 mg PO DAILY 06/29/20 06/29/20 History Allergies Allergy/AdvReac Type Severity Reaction Status Date / Time No Known Allergies Allergy Verified 06/29/20 06:53 Surgical - Exam Vital Signs Temp Pulse Resp BP Pulse Ox 98.1 F 98 20 151/97 100 06/28/20 21:44 06/28/20 21:44 06/28/20 21:44 06/28/20 21:44 06/28/20 21:44 Results - Labs 06/29/20 00:04 06/29/20 00:04 Abnormal Lab Results - Last 24 Hours (Table) 06/28/20 06/29/20 06/29/20 Range/Units 22:01 00:04 00:04 WBC 16.3 H (3.8-10.6) k/uL RBC 2.99 L (3.80-5.40) m/uL Hgb 8.2 L (11.4-16.0) gm/dL Hct 26.0 L (34.0-46.0) % RDW 17.7 H (11.5-15.5) % Plt Count 930 H (150-450) k/uL Neutrophils # 14.2 H (1.3-7.7) k/uL Lymphocytes # 0.9 L (1.0-4.8) k/uL Sodium 132 L (137-145) mmol/L Potassium 5.3 H (3.5-5.1) mmol/L Carbon Dioxide 20 L (22-30) mmol/L BUN 29 H (7-17) mg/dL Creatinine 1.29 H (0.52-1.04) mg/dL Glucose 108 H (74-99) mg/dL Alkaline Phosphatase 174 H (38-126) U/L Amylase 243 H (30-110) U/L Urine Protein 1+ H (Negative) Urine Blood Trace H (Negative) Ur Leukocyte Esterase Large H (Negative) Urine WBC 37 H (0-5) /hpf Amorphous Sediment Rare H (None) /hpf Urine Bacteria Moderate H (None) /hpf Microbiology - Last 24 Hours (Table) 06/28/20 22:01 Urine Culture - Preliminary Urine,Voided Diabetes panel 06/29/20 Range/Units 00:04 Sodium 132 L (137-145) mmol/L Potassium 5.3 H (3.5-5.1) mmol/L Chloride 103 (98-107) mmol/L Carbon Dioxide 20 L (22-30) mmol/L BUN 29 H (7-17) mg/dL Creatinine 1.29 H (0.52-1.04) mg/dL Glucose 108 H (74-99) mg/dL Calcium 9.1 (8.4-10.2) mg/dL AST 16 (14-36) U/L ALT 12 (4-34) U/L Alkaline Phosphatase 174 H (38-126) U/L Total Protein 6.9 (6.3-8.2) g/dL Albumin 3.7 (3.5-5.0) g/dL Calcium panel 06/29/20 Range/Units 00:04 Calcium 9.1 (8.4-10.2) mg/dL Albumin 3.7 (3.5-5.0) g/dL Pituitary panel 06/29/20 Range/Units 00:04 Sodium 132 L (137-145) mmol/L Potassium 5.3 H (3.5-5.1) mmol/L Chloride 103 (98-107) mmol/L Carbon Dioxide 20 L (22-30) mmol/L BUN 29 H (7-17) mg/dL Creatinine 1.29 H (0.52-1.04) mg/dL Glucose 108 H (74-99) mg/dL Calcium 9.1 (8.4-10.2) mg/dL Adrenal panel 06/29/20 Range/Units 00:04 Sodium 132 L (137-145) mmol/L Potassium 5.3 H (3.5-5.1) mmol/L Chloride 103 (98-107) mmol/L Carbon Dioxide 20 L (22-30) mmol/L BUN 29 H (7-17) mg/dL Creatinine 1.29 H (0.52-1.04) mg/dL Glucose 108 H (74-99) mg/dL Calcium 9.1 (8.4-10.2) mg/dL Total Bilirubin 0.3 (0.2-1.3) mg/dL AST 16 (14-36) U/L ALT 12 (4-34) U/L Alkaline Phosphatase 174 H (38-126) U/L Total Protein 6.9 (6.3-8.2) g/dL Albumin 3.7 (3.5-5.0) g/dL
[2020-06-29] MEDS: BUTALB/APAP/CAFF 50-325-40MG TAB PO PRN (15:36)
[2020-06-29] MEDS: ZINC SULFATE 220 MG CAP PO SCH (15:36)
--- NOTE | 2020-06-29 18:04 | P.GSCN ---
History of Present Illness Consult date: 06/29/20 History of present illness: 59 yo female admitted for a uti and abdominal pain. The ptient had a ct scan identifying bilateral hydronephrosis which is new since last summer. The patiet has a very complicated surgical and Urological history. She has had c section, hysterectomy, cholecystectomy colectomy an lysis of adhesions. From a urological standpoint she related that she had a bladder neck suspension years ago with mesh that led to recuriing infection, chronic indwelling catheter. She states that this led to a cystectomy with ileal loop 1 and 1/2 years ago a [facility] in [place]. SHe follows there and was last seen in the fall. She states that her loop has been functioning well although she has had uti since the cystectomy. Review of Systems All systems: negative - Constitutional Denies fever, Denies weight loss - EENT Eyes: denies blurred vision Ears, nose, mouth and throat: Denies dysphagia - Cardiovascular Denies chest pain, Denies shortness of breath - Respiratory Denies cough, Denies 7 - Gastrointestinal Reports as per HPI - Genitourinary Genitourinary: Denies dysuria, Denies hematuria - Integumentary Denies rash, Denies unusual bruising - Neurological Denies headaches, Denies syncope - Hematologic/Lymphatic Denies easy bleeding, Denies easy bruising Past Medical History Past Medical History: Asthma, Blood Disorder, Chest Pain / Angina, Hearing Disorder / Deafness, Hypertension, Musculoskeletal Disorder, Osteoarthritis (OA), Pneumonia Additional Past Medical History / Comment(s): fluctuating body weight, chronic back pain with pain stimulator, history of iron deficiency,"low rbc's" & anemia requiring blood transfusions, uti, Hx falls & fx to left hip but no sx, dizzy spells, carpal tunnel, BOWEL OBSTRUCTIONS, pt has urostomy., States nausea and vomiting with abd pain-wt loss of 40 # History of Any Multi-Drug Resistant Organisms: None Reported Past Surgical History: Appendectomy, Bariatric Surgery, Bladder Surgery, Breast Surgery, Section, Cholecystectomy, Hysterectomy, Tubal Ligation Additional Past Surgical History / Comment(s): bladder suspension,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, gastric bypass, colon volvulus had exporatory lap w/lysis of adhesions and rt colectomy, urostomy Past Anesthesia/Blood Transfusion Reactions: No Reported Reaction Additional Past Anesthesia/Blood Transfusion Reaction / Comm: blood transfusion- no reaction Past Psychological History: Anxiety, Bipolar, Depression Smoking Status: Current every day smoker Past Alcohol Use History: None Reported Additional Past Alcohol Use History / Comment(s): started smoking at age 16(1976) smoked 2 ppd, quit 1998, restarted smoking recently -smoking 1/2ppd Past Drug Use History: None Reported - Past Family History Mother Family Medical History: No Reported History Additional Family Medical History / Comment(s): no history Father Family Medical History: No Reported History Additional Family Medical History / Comment(s): from alcoholism, gout Brother(s) Additional Family Medical History / Comment(s): seizure Medications and Allergies Home Medications Medication Instructions Recorded Confirmed Type DULoxetine HCL [Cymbalta] 60 mg PO BID 03/21/16 06/29/20 History SUMAtriptan SUCCINATE [Imitrex] 100 mg PO DAILY PRN 03/21/16 06/29/20 History carBAMazepine [TEGretol] 400 mg PO BID 03/21/16 06/29/20 History Metoprolol Tartrate 25 mg PO BID 02/02/19 06/29/20 History busPIRone HCL 15 mg PO TID 02/02/19 06/29/20 History ALPRAZolam [Xanax] 1 mg PO QID 04/20/19 06/29/20 History Dicyclomine HCl 20 mg PO TID PRN 04/20/19 06/29/20 History Fluticasone Nasal [place] [Flonase 1 spray EA NOSTRIL DAILY 04/20/19 06/29/20 History Nasal [place]] Albuterol Inhaler [Ventolin Hfa 2 puff INHALATION RT-Q4H PRN 08/04/19 06/29/20 History Inhaler] Butalb/APAP/Caff 50-325-40Mg 1 tab PO Q4H PRN 08/04/19 06/29/20 History [Fioricet 50-325-40] traZODone HCL [Desyrel] 100 mg PO HS 08/04/19 06/29/20 History Ondansetron [Zofran] 4 mg PO Q8HR PRN #20 tab 08/10/19 06/29/20 Rx Pravastatin Sodium [Pravachol] 10 mg PO HS 12/14/19 06/29/20 History Tiotropium 18 Mcg/Puff [Spiriva] 1 puff INHALATION RT-DAILY 12/14/19 06/29/20 History Pantoprazole [Protonix] 40 mg PO BID #60 tab 12/16/19 06/29/20 Rx HYDROcodone/APAP 10-325MG [[place] 1 tab PO BID PRN 02/14/20 06/29/20 History 10-325] Promethazine [Phenergan] 25 mg PO Q12H PRN 02/14/20 06/29/20 History Acetaminophen Tab [Tylenol] 650 mg PO Q4H PRN 03/11/20 06/29/20 History Ascorbic Acid [Vitamin C] 1,000 mg PO DAILY 03/11/20 06/29/20 History Glucosam/Mukund-Msm1/C/Steve/Bosw 1 tab PO DAILY 03/11/20 06/29/20 History [Glucosamine-Chondroitin Tablet] Multivitamins, Thera [Multivitamin 1 tab PO DAILY 03/11/20 06/29/20 History (formulary)] Omeprazole [PriLOSEC] 40 mg PO DAILY #14 cap 03/11/20 06/29/20 Rx Cholecalciferol [Vitamin D3 (25 25 mcg PO DAILY 05/30/20 06/29/20 History Mcg = 1000 Iu)] Zinc 50 mg PO DAILY 05/30/20 06/29/20 History Diphenoxylate HCl/Atropine 1 - 2 tab PO QID PRN 06/29/20 06/29/20 History [Lomotil 2.5-0.025 mg Tablet] amLODIPine [Norvasc] 10 mg PO DAILY 06/29/20 06/29/20 History lisinopriL 40 mg PO DAILY 06/29/20 06/29/20 History Allergies Allergy/AdvReac Type Severity Reaction Status Date / Time No Known Allergies Allergy Verified 06/29/20 06:53 Surgical - Exam Vital Signs Temp Pulse Resp BP Pulse Ox 98.1 F 98 20 151/97 100 06/28/20 21:44 06/28/20 21:44 06/28/20 21:44 06/28/20 21:44 06/28/20 21:44 - General mild pain well developed, well nourished - Eyes PERRL - ENT no hearing loss - Neck trachea midline - Respiratory normal expansion, normal respiratory effort - Cardiovascular Rhythm: regular - Abdomen mild tenderness, rlq ileal loop , multiple scars, gaseous distention Abdomen: soft - Neurologic normal coordination, normal sensation - Musculoskeletal normal posture - Psychiatric oriented to time, oriented to person, oriented to place, speech is normal, memory intact Results - Labs 06/29/20 00:04 06/29/20 00:04 Abnormal Lab Results - Last 24 Hours (Table) 06/28/20 06/29/20 06/29/20 Range/Units 22:01 00:04 00:04 WBC 16.3 H (3.8-10.6) k/uL RBC 2.99 L (3.80-5.40) m/uL Hgb 8.2 L (11.4-16.0) gm/dL Hct 26.0 L (34.0-46.0) % RDW 17.7 H (11.5-15.5) % Plt Count 930 H (150-450) k/uL Neutrophils # 14.2 H (1.3-7.7) k/uL Lymphocytes # 0.9 L (1.0-4.8) k/uL Sodium 132 L (137-145) mmol/L Potassium 5.3 H (3.5-5.1) mmol/L Carbon Dioxide 20 L (22-30) mmol/L BUN 29 H (7-17) mg/dL Creatinine 1.29 H (0.52-1.04) mg/dL Glucose 108 H (74-99) mg/dL Alkaline Phosphatase 174 H (38-126) U/L Amylase 243 H (30-110) U/L Urine Protein 1+ H (Negative) Urine Blood Trace H (Negative) Ur Leukocyte Esterase Large H (Negative) Urine WBC 37 H (0-5) /hpf Amorphous Sediment Rare H (None) /hpf Urine Bacteria Moderate H (None) /hpf Microbiology - Last 24 Hours (Table) 06/28/20 22:01 Urine Culture - Preliminary Urine,Voided Diabetes panel 06/29/20 Range/Units 00:04 Sodium 132 L (137-145) mmol/L Potassium 5.3 H (3.5-5.1) mmol/L Chloride 103 (98-107) mmol/L Carbon Dioxide 20 L (22-30) mmol/L BUN 29 H (7-17) mg/dL Creatinine 1.29 H (0.52-1.04) mg/dL Glucose 108 H (74-99) mg/dL Calcium 9.1 (8.4-10.2) mg/dL AST 16 (14-36) U/L ALT 12 (4-34) U/L Alkaline Phosphatase 174 H (38-126) U/L Total Protein 6.9 (6.3-8.2) g/dL Albumin 3.7 (3.5-5.0) g/dL Calcium panel 06/29/20 Range/Units 00:04 Calcium 9.1 (8.4-10.2) mg/dL Albumin 3.7 (3.5-5.0) g/dL Pituitary panel 06/29/20 Range/Units 00:04 Sodium 132 L (137-145) mmol/L Potassium 5.3 H (3.5-5.1) mmol/L Chloride 103 (98-107) mmol/L Carbon Dioxide 20 L (22-30) mmol/L BUN 29 H (7-17) mg/dL Creatinine 1.29 H (0.52-1.04) mg/dL Glucose 108 H (74-99) mg/dL Calcium 9.1 (8.4-10.2) mg/dL Adrenal panel 06/29/20 Range/Units 00:04 Sodium 132 L (137-145) mmol/L Potassium 5.3 H (3.5-5.1) mmol/L Chloride 103 (98-107) mmol/L Carbon Dioxide 20 L (22-30) mmol/L BUN 29 H (7-17) mg/dL Creatinine 1.29 H (0.52-1.04) mg/dL Glucose 108 H (74-99) mg/dL Calcium 9.1 (8.4-10.2) mg/dL Total Bilirubin 0.3 (0.2-1.3) mg/dL AST 16 (14-36) U/L ALT 12 (4-34) U/L Alkaline Phosphatase 174 H (38-126) U/L Total Protein 6.9 (6.3-8.2) g/dL Albumin 3.7 (3.5-5.0) g/dL - Imaging CT scan - abdomen: report reviewed, image reviewed CT scan - pelvis: report reviewed, image reviewed Assessment and Plan Assessment: Impression: Uti with sepsis. New onset hydronephrosis, bilateral. History of cystetomy with ileal loop. Multiple surgical procedures. Recommendation For now c/w the iv ab. I will investigate further with her presumed surgeon at [facility][ the patient gave a vague reference to a colleague there]. She was not real certain of his name. She may need to go radha to [facility] for furthere evaluation and treatment of the hydronephrosis if it doesnt get btter with the ab treatment Time with Patient: Greater than 30
[2020-06-29] MEDS ORDERED: PANTOPRAZOLE 40 MG TABLET PO SCH (21:00)
[2020-06-29] MEDS: carBAMazepine 200 MG TAB PO SCH (21:55)
[2020-06-29] MEDS: PRAVASTATIN SODIUM 20 MG TAB PO SCH (21:57)
[2020-06-29] MEDS: traZODone HCL 100 MG TAB PO SCH (22:00)
[2020-06-29] MEDS: SUMAtriptan succinate 50 MG TAB PO PRN (22:05)
[2020-06-30] MEDS: METOPROLOL TARTRATE 25 MG TAB PO SCH ×3 (00:47→20:54)
[2020-06-30] MEDS: PANTOPRAZOLE 40 MG/10 ML VIAL IVP SCH ×3 (00:47→20:59)
[2020-06-30] MEDS: DULoxetine HCL 60 MG CAPSULE.DR PO SCH ×3 (00:47→20:54)
[2020-06-30] MEDS: HEPARIN SODIUM,PORCINE/PF 5,000 UNIT/0.5 ML SYRINGE SQ SCH ×3 (00:48→21:03)
[2020-06-30] MEDS: SODIUM CHLORIDE 0.9% 1,000 ML IV SCH ×3 (00:58→18:03)
[2020-06-30] MEDS: HYDROmorphone 1 MG/ML 1 ML SYRINGE IVP PRN ×5 (05:01→21:05)
--- NOTE | 2020-06-30 05:44 | P.PN ---
Subjective Progress Note Date: 06/30/20 The patient is in the hospital with a uti with sepsis and abdominal pain she is feeling beter. SHe is afebrile Urine c&s is pending. I will try to figure out who her urologist at [facility] and notify him/her of her hydro for future evaluation and if necessary treatment Objective - Vital Signs Vital signs: Vital Signs Temp 98.6 F 06/30/20 02:35 Pulse 77 06/30/20 02:35 Resp 16 06/30/20 02:35 BP 105/71 06/30/20 02:35 Pulse Ox 95 06/30/20 02:35 Intake & Output 06/29/20 06/29/20 06/30/20 06:59 18:59 06:59 Intake Total 2880 200 Output Total 1850 1999 Balance 1030 -1800 Weight 53.2 kg 53.2 kg Intake: Intake, IV Titration 1100 Amount Piperacillin-Tazobactam 3 100 .375 gm In Sodium Chloride 0.9% 100 ml @ 25 mls/hr IVPB Q8H [place] Rx#: [id number] Sodium Chloride 0.9% 1, 1000 000 ml @ 100 mls/hr IV . Q10H [facility] Rx#:[id number] Oral 1780 200 Output: Urine 1850 1999 Right Lower Abdomen [id number] Other: Voiding Method Ileal Conduit (Right) Ileal Conduit (Right) Ileal Conduit (Right) # Bowel Movements 1 - Labs CBC & Chem 7: 06/29/20 00:04 06/29/20 00:04 Labs: Microbiology - Last 24 Hours (Table) 06/28/20 22:01 Urine Culture - Preliminary Urine,Voided Gram Neg Bacilli
[2020-06-30 06:20] LABS: Anisocytosis Slight; Basophils % (A) 1 %; Eosinophils # (A) 0.3 k/uL (0-0.7); Eosinophils % (A) 4 %; HCT 24.8 % (34.0-46.0); HGB 7.8 gm/dL (11.4-16.0); Hypochromasia Moderate; Lymphocytes # (A) 0.9 k/uL (1.0-4.8); Lymphocytes % (A) 11 %; MCH 27.5 pg (25.0-35.0); MCHC 31.4 g/dL (31.0-37.0); MCV 87.5 fL (80.0-100.0); Mean Platelet Volume 6.3; Monocytes # (A) 0.5 k/uL (0-1.0); Monocytes % (A) 7 %; Neutrophils # (A) 6.2 k/uL (1.3-7.7); Neutrophils % (A) 77 %; Platelet Count 838 k/uL (150-450); Poikilocytosis Slight; RBC 2.84 m/uL (3.80-5.40); RDW 17.7 % (11.5-15.5)
[2020-06-30] MEDS: PIPERACILLIN-TAZOBACTAM 3.375 GM in SODIUM CHLORIDE 0.9% 100 ML IVPB SCH ×3 (06:25→21:12)
[2020-06-30] MEDS: ONDANSETRON 4 MG/2 ML VIAL IVP PRN ×2 (06:30→18:02)
[2020-06-30 06:33] LABS: Albumin 2.8 g/dL (3.5-5.0); Calcium 8.7 mg/dL (8.4-10.2); Potassium 4.7 mmol/L (3.5-5.1); Total Bilirubin 0.3 mg/dL (0.2-1.3); Total Protein 5.8 g/dL (6.3-8.2)
[2020-06-30] MEDS: IPRATROPIUM 0.5 MG/2.5 ML NEBU INHALATION SCH ×4 (07:31→19:17)
[2020-06-30] MEDS: FLUTICASONE 50MCG/SPRAY NASAL 16GM EA NOSTRIL SCH (08:29)
[2020-06-30] MEDS: MULTIVITAMINS, THERA 1 EACH TAB PO SCH (08:29)
[2020-06-30] MEDS: carBAMazepine 200 MG TAB PO SCH ×2 (08:29→20:53)
[2020-06-30] MEDS: ALPRAZolam 1 MG TAB PO SCH ×4 (08:29→21:15)
[2020-06-30] MEDS: ZINC SULFATE 220 MG CAP PO SCH (08:29)
[2020-06-30] MEDS: lisinopriL 20 MG TAB PO SCH (08:29)
[2020-06-30] MEDS: NICOTINE 14MG/24HR PATCH TRANSDERM SCH (08:29)
[2020-06-30] MEDS: CHOLECALCIFEROL 25 MCG (1000 IU) TABLET PO SCH (08:29)
[2020-06-30] MEDS: amLODIPine 10 MG TAB PO SCH (08:29)
[2020-06-30] MEDS: busPIRone HCl 5 MG TAB PO SCH ×3 (08:29→21:15)
[2020-06-30] MEDS: ASCORBIC ACID 500 MG TAB PO SCH (09:47)
[2020-06-30] MEDS: BUTALB/APAP/CAFF 50-325-40MG TAB PO PRN (11:00)
[2020-06-30] MEDS: DOCUSATE 100 MG CAP PO SCH ×2 (11:25→20:54)
[2020-06-30] MEDS: LACTULOSE 20 GM/30 ML CUP PO SCH ×4 (14:11→17:07)
--- NOTE | 2020-06-30 16:15 | P.PN ---
Progress Note - Text Progress Note Date: 06/30/20 Patient has had limited success with soapsuds enemas. She still feels constipated. On exam vital signs are stable. Abdomen is soft Constipation. Patient will be given lactulose today. We will start with 30 mL by mouth every hour 4 doses.
--- NOTE | 2020-06-30 16:44 | PN ---
PROGRESS NOTE DATE OF SERVICE: 06/30/2020 This 59-year-old woman who was admitted with abdominal pain with acute UTI with sepsis also has elevated WBC. The patient also has anemia with a hemoglobin of 7.8. Creatinine is 1.11. The patient also had previous bladder surgery for possible bladder atonia with urostomy at [facility]. Cultures are negative at this time. Abdomen and pelvis CT scan is noted. Patient is still complaining of abdominal pain and some constipation also. Surgery is following the patient closely. Past medical history reviewed. REVIEW OF SYSTEMS: CARDIOVASCULAR SYSTEM: No angina, palpitations. RESPIRATORY SYSTEM: As mentioned earlier. GI: As mentioned earlier. : As mentioned earlier. NERVOUS SYSTEM: No numbness, weakness. CURRENT MEDICATIONS: Reviewed. They include Tylenol, Fioricet, [place], Ventolin, Norvasc, Tegretol, vitamin D3, heparin, Dilaudid, multivitamin, Zosyn. PHYSICAL EXAMINATION: Patient is alert, oriented x3. Pulse 80, blood pressure 101/64, respirations 16, temperature 98 degrees, pulse ox 97% on room air. HEENT: Conjunctivae normal. NECK: No jugular venous distention. CARDIOVASCULAR SYSTEM: S1, S2 muffled. RESPIRATORY SYSTEM: Breath sounds diminished at the bases. No rhonchi. No crackles. ABDOMEN: Soft. Mild diffuse distention. Mild diffuse tenderness on the left side of the abdomen. No guarding. No rigidity. No mass palpable. LEGS: No edema. No swelling. NERVOUS SYSTEM: No focal deficit. LABS: WBC 8, hemoglobin 7.8, sodium 135. ASSESSMENT: 1. Abdominal pain with acute urinary tract infection with sepsis, present on admission. 2. Acute renal failure with acute tubular necrosis and prerenal factors. 3. Moderate bilateral hydroureteronephrosis from the CT scan. 4. Dilated intra- and extrahepatic ducts on the CT scan. 5. Abdominal ileus and constipation. 6. Post-surgical changes in the gastric bypass and small bowel surgeries. 7. Intractable vomiting. 8. Increased white count. 9. Anemia, normocytic. 10.Constipation. 11.Increased platelets. 12.Hyponatremia. 13.Hyperkalemia. 14.Elevated alkaline phosphatase. 15.Increased amylase. 16.History of asthma. 17.History of chest pain. 18.Hypertension. 19.History of degenerative joint disease. 20.History of pneumonia. 21.History of fluctuating body weight. 22.History of transfusions. 23.History of bowel obstructions. 24.History of bladder resection because of longstanding indwelling [place] catheter. 25.History of gastric bypass. 26.Colonic volvulus history. 27.History of anxiety, bipolar depression. 28.History of nicotine dependence. 29.FULL CODE. RECOMMENDATIONS AND DISCUSSION: I recommend to continue current medications, continue with the monitoring, symptomatic treatment. Continue with the IV antibiotics. Monitor fluid/electrolyte balance closely. Repeat labs. Urology input appreciated. Surgery is also consulted. Surgery has recommended enemas and supportive care. Overall prognosis extremely guarded because of multiple complex medical issues, as mentioned earlier. Final urine culture is pending at this time. Initial culture showed Gram-negative bacilli. Further recommendations to follow. MMODL / IJN: [id number] /
[2020-06-30] MEDS: PRAVASTATIN SODIUM 20 MG TAB PO SCH (20:55)
[2020-07-01] MEDS: HYDROmorphone 1 MG/ML 1 ML SYRINGE IVP PRN ×6 (00:08→21:00)
[2020-07-01] MEDS: traZODone HCL 100 MG TAB PO SCH (00:08)
[2020-07-01] MEDS: SODIUM CHLORIDE 0.9% 1,000 ML IV SCH ×2 (04:50→11:58)
[2020-07-01] MEDS: PIPERACILLIN-TAZOBACTAM 3.375 GM in SODIUM CHLORIDE 0.9% 100 ML IVPB SCH ×3 (06:53→22:55)
[2020-07-01] MEDS: FLUTICASONE 50MCG/SPRAY NASAL 16GM EA NOSTRIL SCH (08:21)
[2020-07-01] MEDS: NICOTINE 14MG/24HR PATCH TRANSDERM SCH (08:22)
[2020-07-01] MEDS: ALPRAZolam 1 MG TAB PO SCH ×3 (08:22→18:07)
[2020-07-01] MEDS: busPIRone HCl 5 MG TAB PO SCH ×2 (08:22→15:55)
[2020-07-01] MEDS: carBAMazepine 200 MG TAB PO SCH ×2 (08:23→21:09)
[2020-07-01] MEDS: ASCORBIC ACID 500 MG TAB PO SCH (08:23)
[2020-07-01] MEDS: DOCUSATE 100 MG CAP PO SCH ×2 (08:23→21:08)
[2020-07-01] MEDS: CHOLECALCIFEROL 25 MCG (1000 IU) TABLET PO SCH (08:23)
[2020-07-01] MEDS: MULTIVITAMINS, THERA 1 EACH TAB PO SCH (08:24)
[2020-07-01] MEDS: HEPARIN SODIUM,PORCINE/PF 5,000 UNIT/0.5 ML SYRINGE SQ SCH ×2 (08:24→21:12)
[2020-07-01] MEDS: DULoxetine HCL 60 MG CAPSULE.DR PO SCH ×2 (08:24→21:08)
[2020-07-01] MEDS: PANTOPRAZOLE 40 MG/10 ML VIAL IVP SCH ×2 (08:24→21:00)
[2020-07-01] MEDS: ZINC SULFATE 220 MG CAP PO SCH (08:24)
[2020-07-01] MEDS: IPRATROPIUM 0.5 MG/2.5 ML NEBU INHALATION SCH ×4 (08:29→20:08)
[2020-07-01] MEDS: METOPROLOL TARTRATE 25 MG TAB PO SCH ×2 (08:46→21:08)
[2020-07-01] MEDS: lisinopriL 20 MG TAB PO SCH (08:46)
[2020-07-01] MEDS: amLODIPine 10 MG TAB PO SCH (08:46)
[2020-07-01] MEDS: DICYCLOMINE 20 MG TAB PO PRN ×2 (08:56→17:06)
[2020-07-01] MEDS ORDERED: LACTULOSE 20 GM/30 ML CUP PO SCH (11:30)
[2020-07-01] MEDS: LACTULOSE 20 GM/30 ML CUP PO SCH ×3 (13:59→15:56)
--- NOTE | 2020-07-01 14:28 | P.PN ---
Progress Note - Text Progress Note Date: 07/01/20 Patient still has not had any significant bowel movements. On exam vitals are stable. Abdomen soft. There is some firmness in the lower quadrants. Constipation. Patient will be re-given lactulose every hour today.
[2020-07-01] MEDS: HYDROcodone/APAP 10-325MG 1 EACH TAB PO PRN (14:57)
[2020-07-01] MEDS: ONDANSETRON 4 MG/2 ML VIAL IVP PRN (16:02)
--- NOTE | 2020-07-01 20:20 | PN ---
PROGRESS NOTE DATE OF SERVICE: 07/01/2020 This 59-year-old woman who had been admitted with abdominal pain and UTI with sepsis. Also had significant constipation. Multiple medication has been given. Surgery is following the patient closely. Urology has also seen the patient. Cultures are showing Klebsiella pneumoniae which is sensitive to most of the antibiotics. PAST MEDICAL HISTORY: Reviewed. REVIEW OF SYSTEMS: CARDIOVASCULAR SYSTEM: No angina. RESPIRATORY: As mentioned earlier. GI: As mentioned earlier. : As mentioned earlier. NERVOUS SYSTEM: No numbness, weakness. CURRENT MEDICATIONS: Reviewed include Tylenol, Fioricet, Flint, vitamin C, Tegretol, morphine, IV Zosyn. Other medication doses are reviewed. PHYSICAL EXAMINATION: Alert oriented x3. Pulse 75, blood pressure 149/80, respirations 16, temperature 97.8, pulse ox 98% on room air. HEENT: Conjunctivae normal. Oral mucosa moist. NECK: No jugular venous distention. No lymph node enlargement. CARDIOVASCULAR: S1, S2, muffled. No S3, no S4, RESPIRATORY: Diminished breath sounds at the bases. A few scattered rhonchi. ABDOMEN: Soft, nontender. LEGS: No edema, no swelling. NERVOUS SYSTEM: No focal deficits. LABS: WBC 8, hemoglobin 11.8, sodium 135, potassium 4.7. UA noted. ASSESSMENT: 1. Abdominal pain with acute UTI with sepsis, present on admission. 2. Acute renal failure with acute tubular necrosis, prerenal factors. 3. Moderate bilateral hydronephrosis on the CT scan. 4. Dilated intra and extrahepatic ducts on the CT scan. 5. Abdominal ileus and constipation. 6. Postsurgical changes in the gastric bypass and bowel surgery. 7. Intractable vomiting. 8. Increased WBC. 9. Anemia, normocytic. 10.Constipation. 11.Increased platelets. 12.Hyponatremia. 13.Hyperkalemia. 14.Increased alkaline phosphatase. 15.Increased amylase. 16.History of asthma. 17.History of chest pain. 18.Hypertension. 19.History of DJD. 20.History of pneumonia. 21.History of fluctuating body weight. 22.History of transfusion. 23.History of bowel resection. 24.History of bladder resection because of long-standing daily Storey catheter. 25.History of gastric bypass. 26.Colonic volvulus history. 27.History of anxiety bipolar depression. 28.History of nicotine dependence. 29.FULL CODE. RECOMMENDATIONS: Continue current management, continue symptomatic treatment. Continue with empiric antibiotics. Cultures are noted. Otherwise, I would also recommend lactulose for constipation. Closely follow with multiple consultants. Guarded prognosis. Further recommendations to follow. MMODL / IJN: [id number] /
[2020-07-01] MEDS: PRAVASTATIN SODIUM 20 MG TAB PO SCH (21:09)
[2020-07-02] MEDS: SODIUM CHLORIDE 0.9% 1,000 ML IV SCH ×2 (00:44→14:08)
[2020-07-02] MEDS: traZODone HCL 100 MG TAB PO SCH ×2 (00:54→20:41)
[2020-07-02] MEDS: ALPRAZolam 1 MG TAB PO SCH ×6 (00:54→22:29)
[2020-07-02] MEDS: HYDROcodone/APAP 10-325MG 1 EACH TAB PO PRN (00:54)
[2020-07-02] MEDS: busPIRone HCl 5 MG TAB PO SCH ×4 (00:55→20:42)
[2020-07-02] MEDS: PIPERACILLIN-TAZOBACTAM 3.375 GM in SODIUM CHLORIDE 0.9% 100 ML IVPB SCH ×3 (05:43→22:29)
[2020-07-02] MEDS: HYDROmorphone 1 MG/ML 1 ML SYRINGE IVP PRN ×5 (06:55→20:27)
[2020-07-02] MEDS: NICOTINE 14MG/24HR PATCH TRANSDERM SCH (08:01)
[2020-07-02] MEDS: amLODIPine 10 MG TAB PO SCH (08:02)
[2020-07-02] MEDS: ASCORBIC ACID 500 MG TAB PO SCH (08:02)
[2020-07-02] MEDS: DOCUSATE 100 MG CAP PO SCH ×2 (08:03→20:38)
[2020-07-02] MEDS: HEPARIN SODIUM,PORCINE/PF 5,000 UNIT/0.5 ML SYRINGE SQ SCH ×2 (08:03→20:39)
[2020-07-02] MEDS: FLUTICASONE 50MCG/SPRAY NASAL 16GM EA NOSTRIL SCH (08:03)
[2020-07-02] MEDS: CHOLECALCIFEROL 25 MCG (1000 IU) TABLET PO SCH (08:03)
[2020-07-02] MEDS: carBAMazepine 200 MG TAB PO SCH ×2 (08:03→20:39)
[2020-07-02] MEDS: lisinopriL 20 MG TAB PO SCH (08:04)
[2020-07-02] MEDS: METOPROLOL TARTRATE 25 MG TAB PO SCH ×2 (08:04→20:40)
[2020-07-02] MEDS: ZINC SULFATE 220 MG CAP PO SCH (08:04)
[2020-07-02] MEDS: MULTIVITAMINS, THERA 1 EACH TAB PO SCH (08:04)
[2020-07-02] MEDS: PANTOPRAZOLE 40 MG/10 ML VIAL IVP SCH ×2 (08:04→20:40)
[2020-07-02] MEDS: DULoxetine HCL 60 MG CAPSULE.DR PO SCH ×2 (08:11→20:38)
[2020-07-02] MEDS ORDERED: PEG 3350-NA SULF,BICARB,CL/KCL 4,000 ML BOTTLE PO ONE (09:36)
--- NOTE | 2020-07-02 09:36 | P.PN ---
Subjective Progress Note Date: 07/02/20 The patient is feeling much better after good bowel activity. I discussed with her surgeon at [facility]. She will need a loopogram and follow- up with him up. She should see the urologist at [facility] Dr. Rl Zelaya, this has been discussed with the patient and she understands the importance of follow-up there. Objective - Vital Signs Vital signs: Vital Signs Temp 97.8 F 07/02/20 07:51 Pulse 76 07/02/20 07:52 Resp 16 07/02/20 07:51 BP 136/82 07/02/20 07:51 Pulse Ox 98 07/02/20 07:51 Intake & Output 07/01/20 07/02/20 07/02/20 18:59 06:59 18:59 Intake Total 800 Output Total 1650 1600 Balance -850 -1600 Intake: Oral 800 Output: Urine 1650 1000 Stool 600 Other: Voiding Method Ileal Conduit (Right) Ileal Conduit (Right) Ileal Conduit (Right) # Voids 1 # Bowel Movements 1 3 - Labs CBC & Chem 7: 06/30/20 05:45 06/30/20 05:45 Labs: Microbiology - Last 24 Hours (Table) 06/29/20 15:13 Blood Culture - Preliminary Blood No Growth after 48 hours
[2020-07-02] MEDS: IPRATROPIUM 0.5 MG/2.5 ML NEBU INHALATION SCH ×4 (09:45→21:54)
[2020-07-02] MEDS: ONDANSETRON 4 MG/2 ML VIAL IVP PRN ×2 (09:59→20:36)
--- NOTE | 2020-07-02 09:59 | P.PN ---
Progress Note - Text Progress Note Date: 07/02/20 Patient had limited bowel movements with lactulose yesterday. On exam vital signs are stable. Abdomen soft. Chronic constipation. Patiently given GoLYTELY 2 L by mouth today.
[2020-07-02] MEDS: BUTALB/APAP/CAFF 50-325-40MG TAB PO PRN (14:19)
[2020-07-02] MEDS: DICYCLOMINE 20 MG TAB PO PRN (15:49)
[2020-07-02] MEDS ORDERED: MICONAZOLE NITRATE 4%/2% VAG CREAM KIT VAGINAL SCH (16:00)
[2020-07-02] MEDS: MICONAZOLE 2% VAGINAL CREAM 45 GM TUBE/KIT VAGINAL SCH (16:15)
[2020-07-02] MEDS: PRAVASTATIN SODIUM 20 MG TAB PO SCH (20:40)
--- NOTE | 2020-07-02 22:24 | PN ---
PROGRESS NOTE DATE OF SERVICE: 07/02/2020 This 59-year-old woman was admitted with abdominal pain, UTI, also had significant constipation. Culture showed Klebsiella pneumoniae which is rather sensitive to multiple antibiotics. No chest pain. No palpitations. No fever. PHYSICAL EXAMINATION: Alert and oriented x3. The pulse is 70. Blood pressure 143/82, respiration 16, temperature 97.8, pulse ox 98% on room air. HEENT: Conjunctivae normal. NECK: No JVD. CARDIOVASCULAR: S1, S2 muffled. RESPIRATORY SYSTEM: Breath sounds diminished at the bases. A few scattered rhonchi. ABDOMEN: Soft, mild diffuse distention. Mild diffuse discomfort. No guarding. No rigidity. No mass palpable. LEGS are no edema. No swelling. NERVOUS SYSTEM: No focal deficits. LABS: WBC 8, hemoglobin 7.2, sodium is 135. UA noted. ASSESSMENT: 1. Abdominal pain as well as acute urinary tract infection with sepsis, present on admission. 2. Acute renal failure with acute tubular necrosis with prerenal factors. 3. Moderate bilateral hydronephrosis in the CT scan. 4. Dilated intra and extrahepatic ducts in the CT scan. 5. Abdominal ileus and constipation. 6. Postsurgical changes in the gastric bypass and bowel surgery. 7. Intractable vomiting. 8. Increased WBC. 9. Anemia, normocytic. 10.Constipation. 11.Increased platelets. 12.Hyponatremia. 13.Hyperkalemia. 14.Increased alkaline phosphatase. 15.Increased amylase. 16.History of asthma. 17.History of chest pain. 18.History of hypertension. 19.History of degenerative joint disease. 20.History of pneumonia. 21.History of fluctuating body weight. 22.History of transfusion. 23.History of bowel resection. 24.History of bladder resection because of long-standing daily Storey catheter. 25.History of gastric bypass. 26.Colonic volvulus history. 27.History of anxiety, bipolar depression. 28.History of nicotine dependence. 29.FULL CODE. RECOMMENDATIONS AND DISCUSSION: Continue current medications, monitoring and symptomatic treatment. Creatinine slightly improved. Otherwise, continue the current antibiotics. Otherwise closely follow with surgery and measures of constipation. Guarded prognosis. Further recommendations to follow. MMODL / IJN: [id number] /
[2020-07-03] MEDS: SODIUM CHLORIDE 0.9% 1,000 ML IV SCH ×3 (00:14→16:45)
[2020-07-03] MEDS: HYDROmorphone 1 MG/ML 1 ML SYRINGE IVP PRN ×6 (01:33→20:54)
[2020-07-03] MEDS: DICYCLOMINE 20 MG TAB PO PRN (06:07)
[2020-07-03] MEDS: PIPERACILLIN-TAZOBACTAM 3.375 GM in SODIUM CHLORIDE 0.9% 100 ML IVPB SCH ×3 (06:12→22:01)
[2020-07-03] MEDS: FLUTICASONE 50MCG/SPRAY NASAL 16GM EA NOSTRIL SCH (08:13)
[2020-07-03] MEDS: PANTOPRAZOLE 40 MG/10 ML VIAL IVP SCH ×2 (08:13→19:49)
[2020-07-03] MEDS: ALPRAZolam 1 MG TAB PO SCH ×4 (08:14→22:01)
[2020-07-03] MEDS: MULTIVITAMINS, THERA 1 EACH TAB PO SCH (08:14)
[2020-07-03] MEDS: lisinopriL 20 MG TAB PO SCH (08:14)
[2020-07-03] MEDS: carBAMazepine 200 MG TAB PO SCH ×2 (08:14→19:50)
[2020-07-03] MEDS: CHOLECALCIFEROL 25 MCG (1000 IU) TABLET PO SCH (08:14)
[2020-07-03] MEDS: METOPROLOL TARTRATE 25 MG TAB PO SCH ×2 (08:14→19:48)
[2020-07-03] MEDS: DULoxetine HCL 60 MG CAPSULE.DR PO SCH ×2 (08:14→19:50)
[2020-07-03] MEDS: ASCORBIC ACID 500 MG TAB PO SCH (08:14)
[2020-07-03] MEDS: ZINC SULFATE 220 MG CAP PO SCH (08:14)
[2020-07-03] MEDS: HEPARIN SODIUM,PORCINE/PF 5,000 UNIT/0.5 ML SYRINGE SQ SCH ×2 (08:14→19:49)
[2020-07-03] MEDS: amLODIPine 10 MG TAB PO SCH (08:14)
[2020-07-03] MEDS: busPIRone HCl 5 MG TAB PO SCH ×3 (08:14→19:51)
[2020-07-03] MEDS: NICOTINE 14MG/24HR PATCH TRANSDERM SCH (08:14)
[2020-07-03] MEDS: DOCUSATE 100 MG CAP PO SCH ×2 (08:16→19:49)
[2020-07-03] MEDS: IPRATROPIUM 0.5 MG/2.5 ML NEBU INHALATION SCH ×4 (09:01→19:49)
[2020-07-03] MEDS: ONDANSETRON 4 MG/2 ML VIAL IVP PRN (09:53)
[2020-07-03] MEDS: BUTALB/APAP/CAFF 50-325-40MG TAB PO PRN (10:01)
--- NOTE | 2020-07-03 11:07 | P.PN ---
Progress Note - Text Progress Note Date: 07/03/20 Patient drinks 3 L of GoLYTELY yesterday. She has had very minimal output. She feels slightly distended. On exam her vital signs stable. Abdomen soft. There is mild tenderness. There is distended distention. Patient will undergo computed tomography scan of the abdomen pelvis oral contrast to evaluate for possible small bowel obstruction. We will follow with you.
[2020-07-03] MEDS: diphenhydrAMINE 25 MG CAP PO PRN ×2 (12:22→20:17)
[2020-07-03] MEDS: IOPAMIDOL CONTRAST (ORAL USE) VIAL PO PRN ×2 (13:00→15:33)
--- NOTE | 2020-07-03 16:29 | PN ---
PROGRESS NOTE DATE OF SERVICE: 07/03/2020 This 59-year-old woman who was admitted with abdominal pain as well as UTI with sepsis is being closely monitored at this time. The patient still complaining of persistent abdominal pain. Repeat CT scan has been planned by Surgery. The cultures are showing Klebsiella pneumoniae which is sensitive to multiple antibiotics. The patient has constipation. PHYSICAL EXAMINATION: The patient is alert and oriented x3. Pulse 76, blood pressure 134/84, respiration 16, temperature 97.9, pulse ox 98% on room air. HEENT: Conjunctivae normal. NECK: No jugular venous distention. CARDIOVASCULAR: S1, S2 muffled. RESPIRATORY: Breath sounds diminished at the bases. Scattered rhonchi. ABDOMEN: Soft. Mild diffuse distention and mild tenderness. Otherwise, no guarding, no rigidity. No mass palpable. LEGS: No edema. No swelling. NERVOUS SYSTEM: No focal deficits. LABS: WBC 18, hemoglobin 7.8, platelets noted. Sodium 135. ASSESSMENT: 1. Abdominal pain as well as acute urinary tract infection with sepsis, present on admission. 2. Acute renal failure with acute tubular necrosis with prerenal factors. 3. Moderate bilateral hydronephrosis on the CT scan. 4. Dilated intra and extrahepatic ducts on the CT scan of the abdomen. 5. Abdominal ileus and constipation. 6. Post surgical changes of the gastric bypass and bowel surgery. 7. Intractable vomiting. 8. Increased WBC. 9. Anemia, normocytic. 10.Constipation. 11.Increased platelets. 12.Hyponatremia. 13.Hyperkalemia. 14.Increased alkaline phosphatase. 15.Increased amylase. 16.History of asthma. 17.History of chest pain. 18.History of hypertension. 19.History of degenerative joint disease. 20.History of pneumonia. 21.History of fluctuating body weight. 22.History of transfusions. 23.History of bowel resection. 24.History of bladder resection because of long-standing Storey catheter. 25.History of gastric bypass. 26.Colonic volvulus history. 27.History of anxiety, bipolar, depression. 28.History of nicotine dependence. 29.FULL CODE. RECOMMENDATIONS AND DISCUSSION: I recommend to continue current medications, continue symptomatic treatment. Otherwise at this time continue with GoLYTELY hemoglobin has gone down to 7.8. I would recommend repeat labs and continue with antibiotics. Guarded prognosis because of multiple complex medical issues. Closely follow. Further recommendations to follow. Repeat CT scan. Surgery will evaluate the repeat CT scan and assess any changes in the stomach. This patient needs more than 2 nights of hospital stay for complete evaluation and treatment of the above mentioned multiple complex medical issues. Prognosis also guarded. ALBA / JANUARY: [id number] / MTDD
[2020-07-03] MEDS: PRAVASTATIN SODIUM 20 MG TAB PO SCH (19:54)
[2020-07-03] MEDS: MICONAZOLE 2% VAGINAL CREAM 45 GM TUBE/KIT VAGINAL SCH (20:58)
--- NOTE | 2020-07-03 21:07 | CT ---
EXAMINATION TYPE: CT abdomen pelvis w con DATE OF EXAM: 07/03/2020 COMPARISON: 06/29/2020. HISTORY: Abdominal distention CT DLP: 463.30 mGycm Automated exposure control for dose reduction was used. TECHNIQUE: Helical acquisition of images was performed from the lung bases through the pelvis. CONTRAST: Performed with Oral Contrast and with IV Contrast, patient injected with 80 mL of Isovue 300. FINDINGS: LUNG BASES: Bilateral trace pleural effusions with adjacent minimal atelectasis. LIVER/GB: Unchanged cholecystectomy with moderate biliary dilatation ductal dilatation. The common bi le duct diameter is approximately 17 mm. PANCREAS: No significant abnormality is seen. SPLEEN: No significant abnormality is seen. ADRENALS: No significant abnormality is seen. KIDNEYS: Persistent moderate bilateral hydroureteronephrosis without obstructing calculi. FREE AIR: No free air is visualized. RETROPERITONEAL ADENOPATHY: None visualized REPRODUCTIVE ORGANS: No significant abnormality is seen URINARY BLADDER: No significant abnormality is seen. PELVIC ADENOPATHY: None visualized. OSSEOUS STRUCTURES: No significant abnormality is seen. BOWEL: Interval several dilated small bowel loops with transition point in the right lower quadrant. Intraluminal contrast is suggested level of the transition point. Small free fluid. No free air. Rig ht ostomy and gastric bypass seen. Anasarca is noted. OTHER: Stable bilateral breast implants and left pelvic neurostimulator device. IMPRESSION: INTERVAL MODERATE TO HIGH GRADE DISTAL SMALL BOWEL OBSTRUCTION. SMALL FREE FLUID. PERSISTENT BILATERAL MODERATE HYDROURETERONEPHROSIS CHRONIC AND INCIDENTAL FINDINGS ABOVE.
[2020-07-03] MEDS: traZODone HCL 100 MG TAB PO SCH (22:01)
[2020-07-04] MEDS: HYDROmorphone 1 MG/ML 1 ML SYRINGE IVP PRN ×5 (02:20→21:56)
[2020-07-04] MEDS: SODIUM CHLORIDE 0.9% 1,000 ML IV SCH (04:34)
[2020-07-04] MEDS: PIPERACILLIN-TAZOBACTAM 3.375 GM in SODIUM CHLORIDE 0.9% 100 ML IVPB SCH ×3 (05:39→23:27)
[2020-07-04] MEDS: IPRATROPIUM 0.5 MG/2.5 ML NEBU INHALATION SCH ×4 (09:31→20:44)
[2020-07-04] MEDS: NICOTINE 14MG/24HR PATCH TRANSDERM SCH (10:49)
[2020-07-04] MEDS: HEPARIN SODIUM,PORCINE/PF 5,000 UNIT/0.5 ML SYRINGE SQ SCH ×2 (10:55→21:54)
[2020-07-04] MEDS: lisinopriL 20 MG TAB PO SCH (10:55)
[2020-07-04] MEDS: METOPROLOL TARTRATE 25 MG TAB PO SCH ×2 (11:00→21:56)
[2020-07-04] MEDS: ZINC SULFATE 220 MG CAP PO SCH (11:01)
[2020-07-04] MEDS: ALPRAZolam 1 MG TAB PO SCH ×4 (11:02→23:27)
[2020-07-04] MEDS: ASCORBIC ACID 500 MG TAB PO SCH (11:03)
[2020-07-04] MEDS: amLODIPine 10 MG TAB PO SCH (11:03)
[2020-07-04] MEDS: busPIRone HCl 5 MG TAB PO SCH ×3 (11:04→23:27)
[2020-07-04] MEDS: CHOLECALCIFEROL 25 MCG (1000 IU) TABLET PO SCH (11:05)
[2020-07-04] MEDS: carBAMazepine 200 MG TAB PO SCH ×2 (11:05→21:55)
[2020-07-04] MEDS: DOCUSATE 100 MG CAP PO SCH ×2 (11:06→21:56)
[2020-07-04] MEDS: FLUTICASONE 50MCG/SPRAY NASAL 16GM EA NOSTRIL SCH (11:07)
[2020-07-04] MEDS: diphenhydrAMINE 25 MG CAP PO PRN (11:27)
[2020-07-04] MEDS: MULTIVITAMINS, THERA 1 EACH TAB PO SCH (11:27)
[2020-07-04] MEDS: DULoxetine HCL 60 MG CAPSULE.DR PO SCH ×2 (11:27→21:56)
[2020-07-04] MEDS: PANTOPRAZOLE 40 MG/10 ML VIAL IVP SCH ×2 (11:28→21:54)
--- NOTE | 2020-07-04 12:58 | P.PN ---
Subjective Progress Note Date: 07/04/20 CHIEF COMPLAINT: Abdominal pain HISTORY OF PRESENT ILLNESS: Patient is followed for her abdominal pain and constipation. She had very minimal output with GoLYTELY. Today she had clear stools with blood. She feels that her abdomen is more distended. She had a computed tomography scan of the abdomen and pelvis that did show interval moderate to high-grade distal small bowel obstruction. She has been having nausea. No vomiting. Afebrile. PHYSICAL EXAM: VITAL SIGNS: Reviewed. GENERAL: Well-developed in no acute distress. HEENT: No sclera icterus. Extraocular movements grossly intact. Moist buccal mucosa. Head is atraumatic, normocephalic. ABDOMEN: Distended and tender with palpation NEUROLOGIC: Alert and oriented. Cranial nerves II through XII grossly intact. ASSESSMENT: 1. Abdominal pain 2. Moderate to high-grade distal small bowel obstruction suspect secondary to adhesions 3. History of small bowel obstruction with prior bowel resection 4. History of multiple abdominal surgeries PLAN: -Patient scheduled for exploratory laparotomy with small bowel resection tomorrow, 07/05/[address] Munoz -Keep patient nothing by mouth -Continue IV fluids -Continue pain medication as needed Physician Human Resources Professional note has been reviewed by physician. Signing provider agrees with the documented findings, assessment, and plan of care. Objective - Vital Signs Vital signs: Vital Signs Temp 97.9 F 07/04/20 08:38 Pulse 80 07/04/20 08:38 Resp 20 07/04/20 08:38 BP 122/75 07/04/20 08:38 Pulse Ox 99 07/04/20 08:38 Intake & Output 07/03/20 07/04/20 07/04/20 18:59 06:59 18:59 Intake Total 1380 1600 Output Total 1550 3600 Balance -170 -1999 Intake: Oral 1380 1600 Output: Urine 1550 3600 Other: Voiding Method Ileal Conduit (Right) # Bowel Movements 1 1 - Labs CBC & Chem 7: 06/30/20 05:45 06/30/20 05:45 Labs: Microbiology - Last 24 Hours (Table) 06/29/20 15:13 Blood Culture - Preliminary Blood No Growth after 96 hours
[2020-07-04 14:18] LABS: Anisocytosis Slight; Basophils # (A) 0.1 k/uL (0-0.2); Basophils % (A) 1 %; Eosinophils # (A) 0.4 k/uL (0-0.7); Eosinophils % (A) 6 %; HCT 24.7 % (34.0-46.0); HGB 7.9 gm/dL (11.4-16.0); Hypochromasia Moderate; Lymphocytes % (A) 13 %; MCH 27.9 pg (25.0-35.0); MCHC 31.8 g/dL (31.0-37.0); MCV 87.5 fL (80.0-100.0); Mean Platelet Volume 6.8; Monocytes # (A) 0.4 k/uL (0-1.0); Monocytes % (A) 5 %; Neutrophils # (A) 5.5 k/uL (1.3-7.7); Neutrophils % (A) 74 %; Platelet Count 698 k/uL (150-450); RBC 2.82 m/uL (3.80-5.40); RDW 17.4 % (11.5-15.5); WBC 7.4 k/uL (3.8-10.6)
[2020-07-04] MEDS: MICONAZOLE 2% VAGINAL CREAM 45 GM TUBE/KIT VAGINAL SCH (21:00)
[2020-07-04] MEDS: PRAVASTATIN SODIUM 20 MG TAB PO SCH (21:54)
[2020-07-04] MEDS: traZODone HCL 100 MG TAB PO SCH (22:15)
--- NOTE | 2020-07-04 22:55 | PN ---
PROGRESS NOTE DATE OF SERVICE: 07/04/2020 This 59-year-old woman who was admitted with abdominal pain as well as some constipation also had some features of small-bowel obstruction on the CT scan. The patient is also having liquids draining at this time. Surgery has seen the patient and exploratory laparotomy with small-bowel resection is scheduled by Dr. Munoz. No chest pain. No palpitations. No fever. PHYSICAL EXAMINATION: Alert and oriented x3. Pulse 71, blood pressure 120/76, respiration 16, temperature 97.1, pulse ox 93% on room air. HEENT: Conjunctivae normal. NECK: No jugular venous distention. CARDIOVASCULAR SYSTEM: S1, S2 muffled. RESPIRATORY SYSTEM: Breath sounds diminished at the bases. ABDOMEN: Soft, non-tender. LEGS: No edema. No swelling. NERVOUS SYSTEM: No focal deficit. LABS: WBC 7.4, hemoglobin 7.9. ASSESSMENT: 1. Abdominal pain as well as possible acute bowel obstruction for exploratory laparotomy with small-bowel resection. 2. Acute urinary tract infection with Klebsiella pneumoniae infection, present on admission. 3. Acute renal failure with acute tubular necrosis with prerenal factors. 4. Moderate bilateral hydronephrosis on the CT scan. 5. Dilated intrahepatic ducts on the CT scan of the abdomen. 6. Abdominal ileus and constipation. 7. Post-surgical changes of the gastric bypass and bowel surgery. 8. Intractable vomiting. 9. Increased white count. 10.Anemia, normocytic. 11.Constipation. 12.Increased platelets. 13.Hyponatremia. 14.Hyperkalemia. 15.Increased alkaline phosphatase. 16.Increased amylase. 17.History of asthma. 18.History of chest pain. 19.History of hypertension. 20.History of degenerative joint disease. 21.History of pneumonia. 22.History of fluctuating body weight. 23.History of transfusion. 24.History of bowel resection. 25.History of bladder resection because of long-standing Storey catheter. 26.History of gastric bypass. 27.Colonic volvulus history. 28.History of anxiety, bipolar, depression. 29.History of nicotine dependence. 30.FULL CODE. RECOMMENDATIONS AND DISCUSSION: I recommend to continue current medications, continue with the monitoring, symptomatic treatment. Continue with antibiotics. Closely follow with Surgery. Possible exploratory laparotomy. Prognosis guarded because of multiple complex medical issues. Further recommendations to follow. MMODL / IJN: [id number] /
[2020-07-05] MEDS: HYDROmorphone 1 MG/ML 1 ML SYRINGE IVP PRN ×4 (04:53→20:47)
[2020-07-05] MEDS ORDERED: LIDOCAINE 1% (10MG/ML) FOR IV START INTRADERMA PRN (05:00)
[2020-07-05] MEDS ORDERED: ONDANSETRON 4 MG/2 ML VIAL IVP ONE ×2 (05:00→14:20)
[2020-07-05] MEDS ORDERED: DEXAMETHASONE SOD PHOSPHATE 4 MG/ML 1 ML VIAL IV ONE (05:00)
[2020-07-05] MEDS: ALBUTEROL HFA INHALER INHALATION PRN ×4 (05:01→21:10)
[2020-07-05] MEDS: PIPERACILLIN-TAZOBACTAM 3.375 GM in SODIUM CHLORIDE 0.9% 100 ML IVPB SCH ×3 (06:08→21:03)
[2020-07-05 06:33] LABS: Anisocytosis Slight; Basophils # (A) 0.1 k/uL (0-0.2); Basophils % (A) 1 %; Eosinophils # (A) 0.6 k/uL (0-0.7); Eosinophils % (A) 6 %; HCT 28.3 % (34.0-46.0); HGB 8.7 gm/dL (11.4-16.0); Hypochromasia Marked; Lymphocytes # (A) 1.4 k/uL (1.0-4.8); Lymphocytes % (A) 15 %; MCH 27.3 pg (25.0-35.0); MCHC 30.7 g/dL (31.0-37.0); MCV 88.8 fL (80.0-100.0); Mean Platelet Volume 6.6; Monocytes # (A) 0.6 k/uL (0-1.0); Monocytes % (A) 7 %; Neutrophils # (A) 6.3 k/uL (1.3-7.7); Neutrophils % (A) 70 %; Platelet Count 785 k/uL (150-450); Poikilocytosis Slight; RBC 3.19 m/uL (3.80-5.40); RDW 17.3 % (11.5-15.5)
[2020-07-05] MEDS ORDERED: diphenhydrAMINE 50 MG/ML 1 ML VIAL IVP ONE (06:35)
[2020-07-05 06:49] LABS: African American GFR (CKD) 47 (>60 ml/min/1.73 sqM); Anion Gap 8 mmol/L; Blood Urea Nitrogen 7 mg/dL (7-17); Calcium 8.9 mg/dL (8.4-10.2); Carbon Dioxide 20 mmol/L (22-30); Chloride 108 mmol/L (98-107); Glucose 71 mg/dL (74-99); Non-African American GFR(CKD) 41 (>60 ml/min/1.73 sqM); Potassium 4.3 mmol/L (3.5-5.1); Sodium 136 mmol/L (137-145)
[2020-07-05] MEDS ORDERED: MIDAZOLAM 2 MG/2 ML VIAL IV PRN (07:00)
[2020-07-05] MEDS ORDERED: fentaNYL (PF) 50 MCG/ML 2 ML AMP IVP PRN (07:00)
[2020-07-05] MEDS: IPRATROPIUM 0.5 MG/2.5 ML NEBU INHALATION SCH ×4 (09:12→21:10)
[2020-07-05] MEDS: METOPROLOL TARTRATE 25 MG TAB PO SCH ×2 (09:46→20:46)
[2020-07-05] MEDS: ALPRAZolam 1 MG TAB PO SCH ×4 (09:46→21:03)
[2020-07-05] MEDS: FLUTICASONE 50MCG/SPRAY NASAL 16GM EA NOSTRIL SCH (09:47)
[2020-07-05] MEDS: PANTOPRAZOLE 40 MG/10 ML VIAL IVP SCH ×2 (09:48→20:46)
[2020-07-05] MEDS: MULTIVITAMINS, THERA 1 EACH TAB PO SCH (09:49)
[2020-07-05] MEDS: HEPARIN SODIUM,PORCINE/PF 5,000 UNIT/0.5 ML SYRINGE SQ SCH (09:49)
[2020-07-05] MEDS: DULoxetine HCL 60 MG CAPSULE.DR PO SCH ×2 (09:49→20:47)
[2020-07-05] MEDS: DOCUSATE 100 MG CAP PO SCH ×2 (09:49→20:47)
[2020-07-05] MEDS: lisinopriL 20 MG TAB PO SCH (09:49)
[2020-07-05] MEDS: ZINC SULFATE 220 MG CAP PO SCH (09:50)
[2020-07-05] MEDS: NICOTINE 14MG/24HR PATCH TRANSDERM SCH (09:50)
[2020-07-05] MEDS ORDERED: IV FLUID CONTINUATION 1,000 ML IV ONE ×2 (10:05→10:06)
[2020-07-05] MEDS ORDERED: LIDOCAINE 1% INJ 10MG/ML (20 ML MDV) ONE ×2 (11:06→12:03)
[2020-07-05] MEDS: ASCORBIC ACID 500 MG TAB PO SCH (11:18)
[2020-07-05] MEDS: amLODIPine 10 MG TAB PO SCH (11:18)
[2020-07-05] MEDS: busPIRone HCl 5 MG TAB PO SCH ×3 (11:18→21:03)
[2020-07-05] MEDS: CHOLECALCIFEROL 25 MCG (1000 IU) TABLET PO SCH (11:19)
[2020-07-05] MEDS: carBAMazepine 200 MG TAB PO SCH ×2 (11:19→20:47)
[2020-07-05] MEDS ORDERED: MIDAZOLAM 2 MG/2 ML VIAL IV ONE (11:31)
[2020-07-05] MEDS ORDERED: HEPARIN SODIUM,PORCINE 5,000 UNIT/ML 1 ML VIAL ONE (12:03)
[2020-07-05] MEDS ORDERED: ROCURONIUM 10 MG/ML (5 ML VIAL) IV ONE (12:03)
[2020-07-05] MEDS ORDERED: ONDANSETRON 4 MG/2 ML VIAL ONE (12:03)
[2020-07-05] MEDS ORDERED: fentaNYL (PF) 50 MCG/ML 2 ML AMP ONE (12:03)
[2020-07-05] MEDS ORDERED: GLYCOPYRROLATE 0.2 MG/ML 2 ML VIAL ONE (12:03)
[2020-07-05] MEDS ORDERED: SUCCINYLCHOLINE CHLORIDE 100 MG/5 ML SYR IV ONE (12:03)
[2020-07-05] MEDS ORDERED: MIDAZOLAM 2 MG/2 ML VIAL ONE (12:03)
[2020-07-05] MEDS ORDERED: ROPIVACAINE 5 MG/ML 30 ML VIAL ONE (12:03)
[2020-07-05] MEDS ORDERED: NEOSTIGMINE 1 MG/ML 10 ML VIAL ONE (12:03)
[2020-07-05] MEDS ORDERED: PROPOFOL 10 MG/ML 20 ML VIAL IV ONE (12:03)
[2020-07-05] MEDS ORDERED: HYDROmorphone (PF) 1 MG/ML ONE (12:03)
[2020-07-05] MEDS ORDERED: PHENYLEPHRINE-0.9% NACL SYG 1,000 MCG/10 ML SYRINGE ONE (12:03)
[2020-07-05] MEDS ORDERED: LACTATED RINGERS 1,000 ML IV ONE (12:30)
--- NOTE | 2020-07-05 13:31 | P.OP ---
Date of Procedure: 07/05/20 Preoperative Diagnosis: Small bowel obstruction Postoperative Diagnosis: frozen abdomen Procedure(s) Performed: Exploratory laparotomy Lysis of adhesions Enteroenterostomy between dilated small bowel and transverse colon Anesthesia: WALE Surgeon: Saeed Munoz Estimated Blood Loss (ml): 25 Pathology: none sent Condition: stable Disposition: PACU Description of Procedure: The patient's placed on the operative table in supine position. She received general anesthesia. Patient had previous multiple midline scars. She also had an urostomy in the right lower quadrant. The skin was incised midline and then using cautery and sharp dissection the abdominal wall was entered. There was dense adhesions to the anterior abdominal wall. The adhesions were quite extensive. It took approximately 30 minutes to enter the abdomen. Upon entering the abdomen there was a frozen abdomen. There was dense scar tissue between multiple loops of small bowel. In the pelvis there was very dense scar tissue related to the patient's previous cystectomy. At this point the collapsed distal small bowel could not be found. It was decided to perform a enteroenterostomy between the dilated small bowel and the transverse colon. Using the BRITTANY and TA stapler. A [id number] functional end-to-end staple S was created. 3-0 GI silk was used as a crotch stitch the area was irrigated there is no bleeding seen. The fascia was closed loop #1 PDS suture. Skin was closed nancy. Patient top she will was sent to recovery in stable condition.
[2020-07-05] MEDS: LACTATED RINGERS 1,000 ML IV SCH ×2 (13:40→15:17)
[2020-07-05] MEDS: SODIUM CHLORIDE 0.9% 1,000 ML IV SCH (13:40)
[2020-07-05] MEDS ORDERED: fentaNYL (PF) 50 MCG/ML 2 ML AMP IVP ONE (14:00)
[2020-07-05] MEDS ORDERED: HYDROmorphone 0.5 MG/0.5 ML SYRINGE IVP ONE (14:38)
[2020-07-05] MEDS: DEXTROSE 5%-0.9% NACL 1,000 ML IV SCH (16:43)
[2020-07-05] MEDS: PRAVASTATIN SODIUM 20 MG TAB PO SCH (20:47)
[2020-07-05] MEDS: traZODone HCL 100 MG TAB PO SCH (20:47)
--- NOTE | 2020-07-05 20:47 | PN ---
PROGRESS NOTE DATE OF SERVICE: 07/05/2020 This 59-year-old woman who was admitted with abdominal pain as well as bowel obstruction underwent exploratory laparotomy and lysis of adhesions and enteroenterostomy between dilated small bowel and transverse colon by Dr. Munoz. The patient is being closely monitored. No chest pain. No palpitations. No fever. PHYSICAL EXAMINATION: Alert and oriented x3. Pulse is 58, blood pressure 160/74, respiration 18, temperature 98.6, pulse ox 94% on room air. HEENT: Conjunctivae normal. NECK: No jugular venous distention. CARDIOVASCULAR SYSTEM: S1, S2 muffled. RESPIRATORY SYSTEM: Breath sounds diminished at the bases. No rhonchi. No crackles. ABDOMEN: Soft. Status post surgery. LEGS: No edema. No swelling. NERVOUS SYSTEM: No focal deficit. LABS: Hemoglobin 8.6, sodium 136. Other labs are noted. ASSESSMENT: 1. Abdominal pain with possible acute bowel obstruction with exploratory laparotomy as well as lysis of adhesions and enteroenterostomy. 2. Acute urinary tract infection with Klebsiella pneumoniae infection, present on admission. 3. Acute renal failure with acute tubular necrosis with prerenal factors. 4. Moderate bilateral hydronephrosis on the CT scan. 5. Dilated intrahepatic and extrahepatic ducts on the CT scan of the abdomen. 6. Abdominal ileus and constipation. 7. Post-surgical changes of gastric bypass and bowel surgery. 8. Intractable vomiting history. 9. Increased white count. 10.Anemia, normocytic. 11.Constipation history. 12.Increased platelets. 13.Hyponatremia. 14.Hyperkalemia. 15.Increased alkaline phosphatase. 16.Increased amylase. 17.History of asthma. 18.History of chest pain. 19.History of hypertension. 20.History of degenerative joint disease. 21.History of pneumonia. 22.History of fluctuating body weight. 23.History of transfusion. 24.History of bowel resection. 25.History of bladder resection because of longstanding Storey catheter. 26.History of gastric bypass. 27.Colonic volvulus history. 28.History of anxiety, bipolar, depression. 29.History of nicotine dependence. 30.FULL CODE. RECOMMENDATIONS AND DISCUSSION: I recommend to continue current medications, continue with the monitoring, symptomatic treatment. Continue with incentive spirometry. Continue with DVT prophylaxis. Monitor closely. Otherwise, the patient is on Lovenox, proton pump inhibitors. Guarded prognosis. Further recommendations to follow. MMODL / IJN: [id number] /
[2020-07-05] MEDS: ONDANSETRON 4 MG/2 ML VIAL IVP PRN (20:54)
[2020-07-05] MEDS: MICONAZOLE 2% VAGINAL CREAM 45 GM TUBE/KIT VAGINAL SCH (21:00)
[2020-07-06] MEDS: DEXTROSE 5%-0.9% NACL 1,000 ML IV SCH ×3 (00:38→15:17)
[2020-07-06] MEDS: HYDROmorphone 1 MG/ML 1 ML SYRINGE IVP PRN ×5 (00:40→18:08)
[2020-07-06] MEDS: SODIUM CHLORIDE 0.9% 1,000 ML IV SCH ×2 (02:50→22:20)
[2020-07-06] MEDS: ONDANSETRON 4 MG/2 ML VIAL IVP PRN ×2 (04:05→18:08)
[2020-07-06] MEDS: PIPERACILLIN-TAZOBACTAM 3.375 GM in SODIUM CHLORIDE 0.9% 100 ML IVPB SCH ×3 (05:21→22:10)
[2020-07-06] MEDS: IPRATROPIUM 0.5 MG/2.5 ML NEBU INHALATION SCH ×5 (07:11→18:52)
[2020-07-06] MEDS: ALBUTEROL HFA INHALER INHALATION PRN ×4 (07:15→18:52)
--- NOTE | 2020-07-06 07:26 | P.ANPRN ---
Procedure Note - Anesthesia - Nerve Block Performed Bilateral Erector Spinae Single Time Out Performed: Yes Date of Procedure: 07/05/20 Procedure Start Time: 11:30 Procedure Stop Time: 11:37 Location of Patient: PreOp Indication: Acute Post-Operative Pain, Requested by Surgeon Sedation Type: Sedate with meaningful contact maintained Preparation: Sterile Prep Position: Prone Needle Types: Pajunk Needle Gauge: 21 Ultrasound used to visualize needle placement: Yes Ultrasound used to observe medication spread: Yes Blood Aspirated: No Pain Paresthesia on Injection Noted: No Resistance on Injection: Normal Image Stored and Saved: Yes Events: Uneventful and Well Tolerated (ropi .5% 15cc plus xylo 1% 15cc at t10 bilaterally)
[2020-07-06 08:47] LABS: Anisocytosis Slight; Basophils % (A) 0 %; Eosinophils # (A) 0.3 k/uL (0-0.7); Eosinophils % (A) 2 %; HGB 8.7 gm/dL (11.4-16.0); Hypochromasia Marked; Lymphocytes # (A) 0.6 k/uL (1.0-4.8); Lymphocytes % (A) 3 %; MCH 27.6 pg (25.0-35.0); Mean Platelet Volume 6.9; Monocytes # (A) 0.8 k/uL (0-1.0); Monocytes % (A) 5 %; Neutrophils # (A) 15.9 k/uL (1.3-7.7); Neutrophils % (A) 90 %; Platelet Count 906 k/uL (150-450); Poikilocytosis Slight; RBC 3.15 m/uL (3.80-5.40); RDW 17.3 % (11.5-15.5); WBC 17.7 k/uL (3.8-10.6)
[2020-07-06] MEDS: METOPROLOL TARTRATE 25 MG TAB PO SCH ×2 (09:06→22:01)
[2020-07-06] MEDS: ENOXAPARIN 40 MG/0.4 ML SYRINGE SQ SCH (09:06)
[2020-07-06] MEDS: PANTOPRAZOLE 40 MG/10 ML VIAL IVP SCH ×2 (09:06→22:01)
[2020-07-06] MEDS: NICOTINE 14MG/24HR PATCH TRANSDERM SCH (09:06)
[2020-07-06] MEDS: lisinopriL 20 MG TAB PO SCH (09:07)
[2020-07-06] MEDS: ALPRAZolam 1 MG TAB PO SCH ×4 (09:07→22:03)
[2020-07-06] MEDS: amLODIPine 10 MG TAB PO SCH (09:07)
[2020-07-06] MEDS: MULTIVITAMINS, THERA 1 EACH TAB PO SCH (09:07)
[2020-07-06] MEDS: ZINC SULFATE 220 MG CAP PO SCH (09:07)
[2020-07-06] MEDS: DOCUSATE 100 MG CAP PO SCH ×2 (09:07→22:02)
[2020-07-06] MEDS: ASCORBIC ACID 500 MG TAB PO SCH (09:07)
[2020-07-06] MEDS: busPIRone HCl 5 MG TAB PO SCH ×3 (09:07→22:03)
[2020-07-06] MEDS: CHOLECALCIFEROL 25 MCG (1000 IU) TABLET PO SCH (09:08)
[2020-07-06] MEDS: carBAMazepine 200 MG TAB PO SCH ×2 (09:08→22:02)
[2020-07-06] MEDS: FLUTICASONE 50MCG/SPRAY NASAL 16GM EA NOSTRIL SCH (09:09)
[2020-07-06] MEDS: DULoxetine HCL 60 MG CAPSULE.DR PO SCH ×2 (09:09→22:02)
[2020-07-06 09:12] LABS: African American GFR (CKD) 49 (>60 ml/min/1.73 sqM); Anion Gap 8 mmol/L; Blood Urea Nitrogen 7 mg/dL (7-17); Calcium 8.5 mg/dL (8.4-10.2); Carbon Dioxide 18 mmol/L (22-30); Chloride 109 mmol/L (98-107); Glucose 118 mg/dL (74-99); Non-African American GFR(CKD) 42 (>60 ml/min/1.73 sqM); Potassium 4.5 mmol/L (3.5-5.1); Sodium 135 mmol/L (137-145)
--- NOTE | 2020-07-06 13:20 | P.PN ---
Subjective Progress Note Date: 07/06/20 CHIEF COMPLAINT: Abdominal pain HISTORY OF PRESENT ILLNESS: Patient is postop day #1 status post exploratory laparotomy, lysis of adhesions, Enteroenterostomy between dilated small bowel and transverse colon for frozen abdomen and small bowel obstruction. Patient is sitting up at bedside chair. She has worked with physical therapy. She is passing gas and did have a BM. She reports that her pain is controlled. She did get a nerve block. Afebrile. WBC 17.7 Hgb 8.7 platelets 906 sodium 135 CO2 18 creatinine 1.36 Patient seen and examined with Dr. howard PHYSICAL EXAM: VITAL SIGNS: Reviewed. GENERAL: Well-developed in no acute distress. HEENT: No sclera icterus. Extraocular movements grossly intact. Moist buccal mucosa. Head is atraumatic, normocephalic. ABDOMEN: Soft incisional dressing clean dry and intact NEUROLOGIC: Alert and oriented. Cranial nerves II through XII grossly intact. ASSESSMENT: 1. Frozen abdomen with small bowel obstruction status post exploratory laparotomy, lysis of adhesions, enteroenterostomy between dilated small bowel and transverse colon 2. Leukocytosis probably due to steroids. We'll monitor PLAN: -Advance diet to sips of clear liquids -Continue pain medication as needed -Continue IV fluids -Encourage patient to increase activity -Encourage patient to use incentive spirometer -GI prophylaxis Protonix and DVT prophylaxis Lovenox Physician Set Making Machine Operator note has been reviewed by physician. Signing provider agrees with the documented findings, assessment, and plan of care. Objective - Vital Signs Vital signs: Vital Signs Temp 98.2 F 07/06/20 07:34 Pulse 75 07/06/20 07:34 Resp 18 07/06/20 07:34 BP 134/84 07/06/20 07:34 Pulse Ox 94 L 07/06/20 07:34 Intake & Output 07/05/20 07/06/20 07/06/20 18:59 06:59 18:59 Intake Total 1900 100 Output Total 650 Balance 1250 100 Intake: IV 1900 Intake, IV Titration 100 Amount Piperacillin-Tazobactam 3 100 .375 gm In Sodium Chloride 0.9% 100 ml @ 25 mls/hr IVPB Q8H HARRIET Rx#: [id number] Output: Urine 600 Estimated Blood Loss 50 Other: Voiding Method Ileal Conduit (Right) Ileal Conduit (Right) Ileal Conduit (Right) - Labs CBC & Chem 7: 07/06/20 08:13 07/06/20 08:13 Labs: Abnormal Lab Results - Last 24 Hours (Table) 07/06/20 07/06/20 Range/Units 08:13 08:13 WBC 17.7 H (3.8-10.6) k/uL RBC 3.15 L (3.80-5.40) m/uL Hgb 8.7 L (11.4-16.0) gm/dL Hct 28.0 L (34.0-46.0) % RDW 17.3 H (11.5-15.5) % Plt Count 906 H (150-450) k/uL Neutrophils # 15.9 H (1.3-7.7) k/uL Lymphocytes # 0.6 L (1.0-4.8) k/uL Sodium 135 L (137-145) mmol/L Chloride 109 H (98-107) mmol/L Carbon Dioxide 18 L (22-30) mmol/L Creatinine 1.36 H (0.52-1.04) mg/dL Glucose 118 H (74-99) mg/dL Microbiology - Last 24 Hours (Table) 06/29/20 15:13 Blood Culture - Final Blood No Growth after 144 hours
[2020-07-06] MEDS: HYDROcodone/APAP 10-325MG 1 EACH TAB PO PRN (13:36)
[2020-07-06] MEDS ORDERED: FUROSEMIDE 10 MG/ML 4 ML VIAL IV STA (13:55)
--- NOTE | 2020-07-06 14:06 | P.PN ---
Subjective This is a pleasant 59 years old female with past medical history of asthma, hearing difficulty, hypertension, osteoarthritis, chronic back pain status post bariatric surgery and gastric bypass surgery, urinary bladder surgery after 12 years of indwelling urine catheter, Depression and bipolar disorder. She was admitted with signs and symptoms of bowel obstruction, she underwent exploratory laparotomy yesterday with the lysis of adhesions. Today is postoperative day #1., Patient is doing well and she is tolerating water this morning, diet will be assessed and advanced per surgery team, she has some nausea but no vomiting, just some mild expected abdominal pain and tenderness. No bowel movement or passing gas. On exam patient has no colostomy but ileal loop conduit for her previous bladder surgery with urine back connected. Has clear urine. Her labs showed leukocytosis, mostly reactive secondary to surgery. She has ch ronic high platelet count, currently 9/ K. Creatinine 1.3 with baseline 1.1, it looks like patient has chronic kidney disease as well as March her creatinine was 1.1. Vitals are stable. She is on Zosyn and IV fluid but wasn't running today. Also she had small dose of Lasix Review of systems CONSTITUTIONAL: No fever, no malaise, no fatigue. HEENT: No recent visual problems or hearing problems. Denied any sore throat. CARDIOVASCULAR: No orthopnea, PND, no palpitations, no syncope. PULMONARY: No shortness of breath, no cough, no hemoptysis. GASTROINTESTINAL: No diarrhea, no vomiting NEUROLOGICAL: No headaches, no weakness, no numbness. Active Medications Generic Name Dose Route Start Last Admin Trade Name Freq PRN Reason Stop Dose Admin Acetaminophen 650 mg 06/29/20 13:42 Acetaminophen Tab 325 Mg Tab PO Q4H PRN Pain Acetaminophen/Butalbital/Caffeine 1 each 06/29/20 13:42 07/03/20 10:01 Butalb/Apap/Caff 50-325-40mg Tab PO 1 each Q4H PRN Administration Migraine Headache Hydrocodone Bitart/Acetaminophen 1 each 06/29/20 13:42 07/06/20 13:36 Hydrocodone/Apap 10-325mg 1 Each Tab PO 1 each BID PRN Administration Pain Albuterol Sulfate 2 puff 06/29/20 13:42 07/06/20 10:36 Albuterol Hfa Inhaler INHALATION 2 puff RT-Q4H PRN Administration Shortness Of Breath Alprazolam 1 mg 06/29/20 18:00 07/06/20 13:33 Alprazolam 1 Mg Tab PO 1 mg QID [facility] Administration Amlodipine Besylate 10 mg 06/30/20 09:00 07/06/20 09:07 Amlodipine 10 Mg Tab PO 10 mg DAILY [facility] Administration Ascorbic Acid 1,000 mg 06/30/20 09:00 07/06/20 09:07 Ascorbic Acid 500 Mg Tab PO 1,000 mg DAILY [facility] Administration Buspirone HCl 15 mg 06/29/20 16:00 07/06/20 09:07 Buspirone Hcl 5 Mg Tab PO 15 mg TID [facility] Administration Carbamazepine 400 mg 06/29/20 21:00 07/06/20 09:08 Carbamazepine 200 Mg Tab PO 400 mg BID [facility] Administration Cholecalciferol 25 mcg 06/30/20 09:00 07/06/20 09:08 Cholecalciferol 25 Mcg (1000 Iu) Tablet PO 25 mcg DAILY [facility] Administration Dicyclomine HCl 20 mg 06/29/20 13:42 07/03/20 06:07 Dicyclomine 20 Mg Tab PO 20 mg TID PRN Administration Pain Diphenhydramine HCl 25 mg 07/03/20 12:04 07/04/20 11:27 Diphenhydramine 25 Mg Cap PO 25 mg QID PRN Administration Itching Docusate Sodium 100 mg 06/30/20 11:15 07/06/20 09:07 Docusate 100 Mg Cap PO 100 mg BID [facility] Administration Duloxetine HCl 60 mg 06/29/20 13:45 07/06/20 09:09 Duloxetine Hcl 60 Mg Capsule.Dr PO 60 mg BID [facility] Administration Enoxaparin Sodium 40 mg 07/06/20 09:00 07/06/20 09:06 Enoxaparin 40 Mg/0.4 Ml Syringe SQ 40 mg DAILY [facility] Administration Fluticasone Propionate 1 spray 06/30/20 09:00 07/06/20 09:09 Fluticasone 50mcg/[place] Nasal 16gm EA NOSTRIL 1 spray DAILY [facility] Administration Hydromorphone HCl 1 mg 06/29/20 09:00 07/06/20 08:27 Hydromorphone 1 Mg/Ml 1 Ml Syringe IVP 1 mg Q3HR PRN Administration Pain Sodium Chloride 1,000 mls @ 50 mls/hr 06/29/20 03:15 07/06/20 02:50 Saline 0.9% IV Not Given .Q20H [facility] Piperacillin Sod/Tazobactam 100 mls @ 25 mls/hr 06/29/20 14:00 07/06/20 05:21 Sod 3.375 gm/ Sodium Chloride IVPB 25 mls/hr Q8H [facility] Administration Lactated Ringer's 1,000 mls @ 20 mls/hr 07/05/20 05:00 07/05/20 15:17 Lactated Ringers IV 50 mls .Q24H [facility] Administration Dextrose/Sodium Chloride 1,000 mls @ 125 mls/hr 07/05/20 16:15 07/06/20 09:07 Dextrose 5%-Ns Iv Soln IV 125 mls/hr .Q8H [facility] Administration Ipratropium [place] 0.5 mg 06/30/20 08:00 07/06/20 10:36 Ipratropium 0.5 Mg/2.5 Ml Nebu INHALATION Not Given RT-QID [facility] Lisinopril 40 mg 06/29/20 13:45 07/06/20 09:07 Lisinopril 20 Mg Tab PO 40 mg DAILY [facility] Administration Metoprolol Tartrate 25 mg 06/29/20 13:45 07/06/20 09:06 Metoprolol Tartrate 25 Mg Tab PO 25 mg BID [facility] Administration Miconazole Nitrate 1 applic 07/02/20 17:00 07/05/20 21:00 Miconazole 2% Vaginal Cream 45 Gm Tube/Kit VAGINAL Not Given HS [facility] Morphine Sulfate 4 mg 06/29/20 02:50 Morphine Sulfate 4 Mg/Ml Syringe IVP Q4HR PRN Pain Multivitamins 1 each 06/30/20 09:00 07/06/20 09:07 Multivitamins, Thera 1 Each Tab PO 1 each DAILY [facility] Administration Naloxone HCl 0.2 mg 06/29/20 03:14 Naloxone 0.4 Mg/Ml 1 Ml Vial IV Q2M PRN Opioid Reversal Nicotine 1 patch 06/29/20 11:15 07/06/20 09:06 Nicotine 14mg/24hr Patch TRANSDERM 1 patch DAILY [facility] Administration Ondansetron HCl 4 mg 06/29/20 03:14 07/06/20 04:05 Ondansetron 4 Mg/2 Ml Vial IVP 4 mg Q8HR PRN Administration Nausea And Vomiting Pantoprazole Sodium 40 mg 06/29/20 14:00 07/06/20 09:06 Pantoprazole 40 Mg/10 Ml Vial IVP 40 mg BID [facility] Administration Pravastatin Sodium 10 mg 06/29/20 21:00 07/05/20 20:47 Pravastatin Sodium 20 Mg Tab PO 10 mg HS [facility] Administration Promethazine HCl 25 mg 06/29/20 13:42 Promethazine 25 Mg Tab PO Q12H PRN Nausea Sumatriptan Succinate 100 mg 06/29/20 13:42 06/29/20 22:05 Sumatriptan Succinate 50 Mg Tab PO 100 mg DAILY PRN Administration Migraine Headache Trazodone HCl 100 mg 06/29/20 21:00 07/05/20 20:47 Trazodone Hcl 100 Mg Tab PO 100 mg HS [facility] Administration Zinc Sulfate 220 mg 06/29/20 13:45 07/06/20 09:07 Zinc Sulfate 220 Mg Cap PO 220 mg DAILY [facility] Administration Objective - Vital Signs Vital signs: Vital Signs Temp 98 F 07/06/20 13:34 Pulse 78 07/06/20 13:34 Resp 18 07/06/20 13:34 BP 134/81 07/06/20 13:34 Pulse Ox 99 07/06/20 13:34 Intake & Output 07/05/20 07/06/20 07/06/20 18:59 06:59 18:59 Intake Total 1900 100 Output Total 650 Balance 1250 100 Intake: IV 1900 Intake, IV Titration 100 Amount Piperacillin-Tazobactam 3 100 .375 gm In Sodium Chloride 0.9% 100 ml @ 25 mls/hr IVPB Q8H [facility] Rx#: [id number] Output: Urine 600 Estimated Blood Loss 50 Other: Voiding Method Ileal Conduit (Right) Ileal Conduit (Right) Ileal Conduit (Right) - Exam GENERAL: The patient is alert and oriented x3, not in any acute distress. Well developed, well nourished. HEENT: Pupils are round and equally reacting to light. EOMI. No scleral icterus. No conjunctival pallor. Normocephalic, atraumatic. No pharyngeal erythema. No thyromegaly. CARDIOVASCULAR: S1 and S2 present. No murmurs, rubs, or gallops. PULMONARY: Chest is clear to auscultation, no wheezing or crackles. -ABDOMEN: Soft, nontender, nondistended, normoactive bowel sounds. No palpable organomegaly. Right lower abdomen Uro-bag MUSCULOSKELETAL: No joint swelling or deformity. EXTREMITIES: No cyanosis, clubbing, or pedal edema. NEUROLOGICAL: Gross neurological examination did not reveal any focal deficits. SKIN: No rashes. no petechiae. - Labs CBC & Chem 7: 07/06/20 08:13 07/06/20 08:13 Labs: Abnormal Lab Results - Last 24 Hours (Table) 07/06/20 07/06/20 Range/Units 08:13 08:13 WBC 17.7 H (3.8-10.6) k/uL RBC 3.15 L (3.80-5.40) m/uL Hgb 8.7 L (11.4-16.0) gm/dL Hct 28.0 L (34.0-46.0) % RDW 17.3 H (11.5-15.5) % Plt Count 906 H (150-450) k/uL Neutrophils # 15.9 H (1.3-7.7) k/uL Lymphocytes # 0.6 L (1.0-4.8) k/uL Sodium 135 L (137-145) mmol/L Chloride 109 H (98-107) mmol/L Carbon Dioxide 18 L (22-30) mmol/L Creatinine 1.36 H (0.52-1.04) mg/dL Glucose 118 H (74-99) mg/dL Microbiology - Last 24 Hours (Table) 06/29/20 15:13 Blood Culture - Final Blood No Growth after 144 hours Assessment and Plan Assessment: Small bowel obstruction status post exploratory laparotomy and lysis of adhesio ns on 07/05. Klebsiella urinary tract infection Acute kidney injury on chronic kidney disease, stable Moderate bilateral hydronephrosis, evaluated by his urologist and recommended follow-up with her surgeon at [facility] History of cystectomy with ileo-loop. History of multiple surgical procedures Chronic hypertrophic count Leukocytosis, mostly reactive Plan: This is a pleasant 59 years old female presents with SBO status post exploratory laparotomy. Continue with Zosyn, continue gentle hydration. Surgery primary team on the case. Urologist already evaluated the patient and recommended that she follows up with her urologist Rl Ash at [facility], patient informed and she agrees .Labs and medication were reviewed.. Continue same treatment. Continue with symptomatic treatment. Resume home medication. Monitor lytes and vitals. DVT and GI prophylaxis. Further recommendationsas per clinical course of the patient DVT prophylaxis: Subcutaneous Lovenox GI Prophylaxis: Ppi PT/OT: Pending Prognosis is guarded
[2020-07-06] MEDS: BUTALB/APAP/CAFF 50-325-40MG TAB PO PRN (18:07)
[2020-07-06] MEDS: MICONAZOLE 2% VAGINAL CREAM 45 GM TUBE/KIT VAGINAL SCH (21:40)
[2020-07-06] MEDS: PRAVASTATIN SODIUM 20 MG TAB PO SCH (22:01)
[2020-07-06] MEDS: traZODone HCL 100 MG TAB PO SCH (22:02)
[2020-07-06] MEDS: SUMAtriptan succinate 50 MG TAB PO PRN (22:02)
[2020-07-07] MEDS: LACTATED RINGERS 1,000 ML IV SCH ×2 (00:07→23:09)
[2020-07-07] MEDS: HYDROmorphone 1 MG/ML 1 ML SYRINGE IVP PRN ×6 (00:43→20:11)
[2020-07-07] MEDS: DEXTROSE 5%-0.9% NACL 1,000 ML IV SCH ×4 (01:49→20:12)
[2020-07-07] MEDS: PIPERACILLIN-TAZOBACTAM 3.375 GM in SODIUM CHLORIDE 0.9% 100 ML IVPB SCH ×3 (05:42→20:11)
[2020-07-07] MEDS: HYDROcodone/APAP 10-325MG 1 EACH TAB PO PRN ×2 (07:34→18:30)
[2020-07-07] MEDS: IPRATROPIUM 0.5 MG/2.5 ML NEBU INHALATION SCH ×4 (09:36→22:15)
[2020-07-07] MEDS: ALBUTEROL HFA INHALER INHALATION PRN ×3 (09:36→16:55)
[2020-07-07] MEDS: METOPROLOL TARTRATE 25 MG TAB PO SCH ×2 (09:40→20:00)
[2020-07-07] MEDS: amLODIPine 10 MG TAB PO SCH (09:40)
[2020-07-07] MEDS: busPIRone HCl 5 MG TAB PO SCH ×3 (09:40→20:01)
[2020-07-07] MEDS: ALPRAZolam 1 MG TAB PO SCH ×4 (09:41→22:52)
[2020-07-07] MEDS: CHOLECALCIFEROL 25 MCG (1000 IU) TABLET PO SCH (09:42)
[2020-07-07] MEDS: ZINC SULFATE 220 MG CAP PO SCH (09:42)
[2020-07-07] MEDS: DOCUSATE 100 MG CAP PO SCH ×2 (09:42→20:00)
[2020-07-07] MEDS: MULTIVITAMINS, THERA 1 EACH TAB PO SCH (09:42)
[2020-07-07] MEDS: carBAMazepine 200 MG TAB PO SCH ×2 (09:43→20:00)
[2020-07-07] MEDS: ASCORBIC ACID 500 MG TAB PO SCH (09:44)
[2020-07-07] MEDS: lisinopriL 20 MG TAB PO SCH (09:44)
[2020-07-07] MEDS: DULoxetine HCL 60 MG CAPSULE.DR PO SCH ×2 (09:45→20:00)
[2020-07-07] MEDS: ENOXAPARIN 40 MG/0.4 ML SYRINGE SQ SCH (09:46)
[2020-07-07] MEDS: NICOTINE 14MG/24HR PATCH TRANSDERM SCH (09:46)
[2020-07-07] MEDS: PANTOPRAZOLE 40 MG/10 ML VIAL IVP SCH ×2 (09:46→20:00)
[2020-07-07] MEDS: FLUTICASONE 50MCG/SPRAY NASAL 16GM EA NOSTRIL SCH (09:47)
[2020-07-07] MEDS: ONDANSETRON 4 MG/2 ML VIAL IVP PRN ×2 (09:50→23:12)
[2020-07-07 10:56] LABS: Anisocytosis (M) 2+; Basophils # (A) 0.02 X 10*3/uL (0.00-0.10); Basophils % (A) 0.1 %; Eosinophils # (A) 1.03 X 10*3/uL (0.04-0.35); Eosinophils % (A) 6.8 %; HCT 23.4 % (37.2-46.3); HGB 6.9 g/dL (12.0-15.0); Hypochromasia (M) 2+; Lymphocytes % (A) 5.9 %; MCH 27.2 pg (27.0-32.0); MCHC 29.5 g/dL (32.0-37.0); MCV 92.1 fL (80.0-97.0); Monocytes # (A) 1.76 X 10*3/uL (0.20-1.00); Monocytes % (A) 11.6 %; Neutrophils # (A) 11.38 X 10*3/uL (1.80-7.70); Neutrophils % (A) 74.9 %; Platelet Count 613 X 10*3/uL (140-440); RBC 2.54 X 10*6/uL (4.10-5.20); RDW 17.6 % (11.5-14.5)
[2020-07-07 12:11] LABS: African American GFR (CKD) 46.9 (60.0-200.0); Anion Gap 13.5 mmol/L (4.00-12.00); BUN/Creat Ratio 7.14 Ratio (12.00-20.00); Calcium 8.1 mg/dL (8.7-10.3); Carbon Dioxide 14.5 mmol/L (21.6-31.8); Non-African American GFR(CKD) 40.5 (60.0-200.0); Potassium 4.3 mmol/L (3.5-5.5)
--- NOTE | 2020-07-07 13:21 | P.PN ---
Subjective Progress Note Date: 07/07/20 CHIEF COMPLAINT: Abdominal pain HISTORY OF PRESENT ILLNESS: Patient is postop day #2 status post exploratory laparotomy, lysis of adhesions, Enteroenterostomy between dilated small bowel and transverse colon for frozen abdomen and small bowel obstruction. Patient is sitting up at bedside chair. She is passing gas and did have diarrhea. Patient does report her stool is firming up. Her pain is controlled. She did receive the nerve block. Denies any blood in the stools. Afebrile. WBC trending down 15.20 hemoglobin down to 6.9 platelet 613 creatinine 1.4 Patient seen and examined with Dr. howard PHYSICAL EXAM: VITAL SIGNS: Reviewed. GENERAL: Well-developed in no acute distress. HEENT: No sclera icterus. Extraocular movements grossly intact. Moist buccal mucosa. Head is atraumatic, normocephalic. ABDOMEN: Soft mildly distended incisional dressing clean dry and intact NEUROLOGIC: Alert and oriented. Cranial nerves II through XII grossly intact. ASSESSMENT: 1. Frozen abdomen with small bowel obstruction status post exploratory laparotomy, lysis of adhesions, enteroenterostomy between dilated small bowel and transverse colon 2. Leukocytosis probably due to steroids. We'll monitor 3. Anemia likely aida-dilutional, secondary to IV fluids PLAN: -Transfuse 1 unit of blood for hemoglobin of 6.9 -Advance diet to full liquids -Continue antibiotic -Continue pain medication as needed -Continue IV fluids -Encourage patient to increase activity -Encourage patient to use incentive spirometer -GI prophylaxis Protonix and DVT prophylaxis Lovenox Physician [employer] note has been reviewed by physician. Signing provider agrees with the documented findings, assessment, and plan of care. Objective - Vital Signs Vital signs: Vital Signs Temp 97.8 F 07/07/20 08:00 Pulse 76 07/07/20 08:00 Resp 16 07/07/20 08:00 BP 151/91 07/07/20 08:00 Pulse Ox 98 07/07/20 08:00 Intake & Output 07/06/20 07/07/20 07/07/20 18:59 06:59 18:59 Intake Total 100 Output Total 600 700 Balance -500 -700 Weight 53.2 kg Intake: Intake, IV Titration 100 Amount Piperacillin-Tazobactam 3 100 .375 gm In Sodium Chloride 0.9% 100 ml @ 25 mls/hr IVPB Q8H [facility] Rx#: [id number] Output: Urine 600 700 Other: Voiding Method Ileal Conduit (Right) Ileal Conduit (Right) Ileal Conduit (Right) # Bowel Movements 3 - Labs CBC & Chem 7: 07/07/20 04:20 07/07/20 04:20 Labs: Abnormal Lab Results - Last 24 Hours (Table) 07/05/20 07/07/20 07/07/20 Range/Units 09:29 04:20 04:20 WBC 15.20 H (4.50-10.00) X 10*3/uL RBC 2.54 L (4.10-5.20) X 10*6/uL Hgb 6.9 L* (12.0-15.0) g/dL Hct 23.4 L (37.2-46.3) % MCHC 29.5 L (32.0-37.0) g/dL RDW 17.6 H (11.5-14.5) % Plt Count 613 H (140-440) X 10*3/uL Plt Count Comment INCREASED A MPV 9.0 L (9.5-12.2) fL Immature Gran # 0.11 H (0.00-0.04) X 10*3/uL Neutrophils # 11.38 H (1.80-7.70) X 10*3/uL Monocytes # 1.76 H (0.20-1.00) X 10*3/uL Eosinophils # 1.03 H (0.04-0.35) X 10*3/uL Carbon Dioxide 14.5 L (21.6-31.8) mmol/L Anion Gap 13.50 H (4.00-12.00) mmol/L Est GFR (CKD-EPI)AfAm 46.9 L (60.0-200.0) Est GFR (CKD-EPI)NonAf 40.5 L (60.0-200.0) BUN/Creatinine Ratio 7.14 L (12.00-20.00) Ratio Glucose 113 H (70-110) mg/dL Calcium 8.1 L (8.7-10.3) mg/dL Crossmatch See Detail
[2020-07-07] MEDS: ACETAMINOPHEN TAB 325 MG TAB PO PRN ×2 (14:20→23:13)
[2020-07-07] MEDS: MICONAZOLE 2% VAGINAL CREAM 45 GM TUBE/KIT VAGINAL SCH (20:06)
[2020-07-07] MEDS: PRAVASTATIN SODIUM 20 MG TAB PO SCH (20:13)
[2020-07-07] MEDS: SODIUM CHLORIDE 0.9% 1,000 ML IV SCH (20:14)
[2020-07-07] MEDS ORDERED: FUROSEMIDE 10 MG/ML 4 ML VIAL IV STA (21:26)
--- NOTE | 2020-07-07 21:31 | P.PN ---
Subjective This is a pleasant 59 years old female with past medical history of asthma, hearing difficulty, hypertension, osteoarthritis, chronic back pain status post bariatric surgery and gastric bypass surgery, urinary bladder surgery after 12 years of indwelling urine catheter, Depression and bipolar disorder. She was admitted with signs and symptoms of bowel obstruction, she underwent exploratory laparotomy yesterday with the lysis of adhesions. Today is postoperative day #1., Patient is doing well and she is tolerating water this morning, diet will be assessed and advanced per surgery team, she has some nausea but no vomiting, just some mild expected abdominal pain and tenderness. No bowel movement or passing gas. On exam patient has no colostomy but ileal loop conduit for her previous bladder surgery with urine back connected. Has clear urine. Her labs showed leukocytosis, mostly reactive secondary to surgery. She has chronic high platelet count, currently 12/04 K. Creatinine 1.3 with baseline 1.1, it looks like patient has chronic kidney disease as well as March her creatinine was 1.1. Vitals are stable. She is on Zosyn and IV fluid but wasn't running today. Also she had small dose of Lasix 07/07/2020 Patient is tolerating liquid diet and today it was advanced to full liquid diet, she has some nausea but no vomiting, abdominal pain is mild, she has diarrhea today about twice in the morning She denies signs and symptoms of bipolar depression or suicidal ideation Daily labs showing a drop of her hemoglobin from 8.7 down to 6.9 and 1 unit of blood transfusion is provided. WBC is pending down also from 17,000-58, creat inine 1.3 up to 1.4. Platelets improved down to 613. She still on Zosyn and D5 normal saline at 125 mL/h. Also got 1 dose of Lasix Review of systems CONSTITUTIONAL: No fever, no malaise, no fatigue. HEENT: No recent visual problems or hearing problems. Denied any sore throat. CARDIOVASCULAR: No orthopnea, PND, no palpitations, no syncope. PULMONARY: No shortness of breath, no cough, no hemoptysis. GASTROINTESTINAL: No diarrhea, no vomiting NEUROLOGICAL: No headaches, no weakness, no numbness. Active Medications Generic Name Dose Route Start Last Admin Trade Name Freq PRN Reason Stop Dose Admin Acetaminophen 650 mg 06/29/20 13:42 07/07/20 14:20 Acetaminophen Tab 325 Mg Tab PO 650 mg Q4H PRN Administration Pain Acetaminophen/Butalbital/Caffeine 1 each 06/29/20 13:42 07/06/20 18:07 Butalb/Apap/Caff 50-325-40mg Tab PO 1 each Q4H PRN Administration Migraine Headache Hydrocodone Bitart/Acetaminophen 1 each 06/29/20 13:42 07/07/20 18:30 Hydrocodone/Apap 10-325mg 1 Each Tab PO 1 each BID PRN Administration Pain Albuterol Sulfate 2 puff 06/29/20 13:42 07/07/20 16:55 Albuterol Hfa Inhaler INHALATION 2 puff RT-Q4H PRN Administration Shortness Of Breath Alprazolam 1 mg 06/29/20 18:00 07/07/20 18:56 Alprazolam 1 Mg Tab PO Not Given QID [facility] Amlodipine Besylate 10 mg 06/30/20 09:00 07/07/20 09:40 Amlodipine 10 Mg Tab PO 10 mg DAILY [facility] Administration Ascorbic Acid 1,000 mg 06/30/20 09:00 07/07/20 09:44 Ascorbic Acid 500 Mg Tab PO 1,000 mg DAILY [facility] Administration Buspirone HCl 15 mg 06/29/20 16:00 07/07/20 20:01 Buspirone Hcl 5 Mg Tab PO 15 mg TID [facility] Administration Carbamazepine 400 mg 06/29/20 21:00 07/07/20 20:00 Carbamazepine 200 Mg Tab PO 400 mg BID [facility] Administration Cholecalciferol 25 mcg 06/30/20 09:00 07/07/20 09:42 Cholecalciferol 25 Mcg (1000 Iu) Tablet PO 25 mcg DAILY [facility] Administration Dicyclomine HCl 20 mg 06/29/20 13:42 07/03/20 06:07 Dicyclomine 20 Mg Tab PO 20 mg TID PRN Administration Pain Diphenhydramine HCl 25 mg 07/03/20 12:04 07/04/20 11:27 Diphenhydramine 25 Mg Cap PO 25 mg QID PRN Administration Itching Docusate Sodium 100 mg 06/30/20 11:15 07/07/20 20:00 Docusate 100 Mg Cap PO 100 mg BID [facility] Administration Duloxetine HCl 60 mg 06/29/20 13:45 07/07/20 20:00 Duloxetine Hcl 60 Mg Capsule.Dr PO 60 mg BID [facility] Administration Enoxaparin Sodium 40 mg 07/06/20 09:00 07/07/20 09:46 Enoxaparin 40 Mg/0.4 Ml Syringe SQ 40 mg DAILY [facility] Administration Fluticasone Propionate 1 spray 06/30/20 09:00 07/07/20 09:47 Fluticasone 50mcg/[place] Nasal 16gm EA NOSTRIL 1 spray DAILY [facility] Administration Furosemide 40 mg 07/07/20 21:26 Furosemide 10 Mg/Ml 4 Ml Vial IV 07/07/20 21:27 ONCE STA Hydromorphone HCl 1 mg 06/29/20 09:00 07/07/20 20:11 Hydromorphone 1 Mg/Ml 1 Ml Syringe IVP 1 mg Q3HR PRN Administration Pain Sodium Chloride 1,000 mls @ 50 mls/hr 06/29/20 03:15 07/07/20 20:14 Saline 0.9% IV Not Given .Q20H [facility] Piperacillin Sod/Tazobactam 100 mls @ 25 mls/hr 06/29/20 14:00 07/07/20 20:11 Sod 3.375 gm/ Sodium Chloride IVPB 25 mls/hr Q8H [facility] Administration Lactated Ringer's 1,000 mls @ 20 mls/hr 07/05/20 05:00 07/07/20 00:07 Lactated Ringers IV Not Given .Q24H [facility] Dextrose/Sodium Chloride 1,000 mls @ 125 mls/hr 07/05/20 16:15 07/07/20 20:12 Dextrose 5%-Ns Iv Soln IV 125 mls/hr .Q8H [facility] Administration Ipratropium [place] 0.5 mg 06/30/20 08:00 07/07/20 16:54 Ipratropium 0.5 Mg/2.5 Ml Nebu INHALATION Not Given RT-QID [facility] Lisinopril 40 mg 06/29/20 13:45 07/07/20 09:44 Lisinopril 20 Mg Tab PO 40 mg DAILY [facility] Administration Metoprolol Tartrate 25 mg 06/29/20 13:45 07/07/20 20:00 Metoprolol Tartrate 25 Mg Tab PO 25 mg BID [facility] Administration Miconazole Nitrate 1 applic 07/02/20 17:00 07/07/20 20:06 Miconazole 2% Vaginal Cream 45 Gm Tube/Kit VAGINAL Not Given HS [facility] Morphine Sulfate 4 mg 06/29/20 02:50 Morphine Sulfate 4 Mg/Ml Syringe IVP Q4HR PRN Pain Multivitamins 1 each 06/30/20 09:00 07/07/20 09:42 Multivitamins, Thera 1 Each Tab PO 1 each DAILY [facility] Administration Naloxone HCl 0.2 mg 06/29/20 03:14 Naloxone 0.4 Mg/Ml 1 Ml Vial IV Q2M PRN Opioid Reversal Nicotine 1 patch 06/29/20 11:15 07/07/20 09:46 Nicotine 14mg/24hr Patch TRANSDERM 1 patch DAILY [facility] Administration Ondansetron HCl 4 mg 06/29/20 03:14 07/07/20 09:50 Ondansetron 4 Mg/2 Ml Vial IVP 4 mg Q8HR PRN Administration Nausea And Vomiting Pantoprazole Sodium 40 mg 06/29/20 14:00 07/07/20 20:00 Pantoprazole 40 Mg/10 Ml Vial IVP 40 mg BID [facility] Administration Pravastatin Sodium 10 mg 06/29/20 21:00 07/07/20 20:13 Pravastatin Sodium 20 Mg Tab PO 10 mg HS [facility] Administration Promethazine HCl 25 mg 06/29/20 13:42 Promethazine 25 Mg Tab PO Q12H PRN Nausea Sumatriptan Succinate 100 mg 06/29/20 13:42 07/06/20 22:02 Sumatriptan Succinate 50 Mg Tab PO 100 mg DAILY PRN Administration Migraine Headache Trazodone HCl 100 mg 06/29/20 21:00 07/06/20 22:02 Trazodone Hcl 100 Mg Tab PO 100 mg HS [facility] Administration Zinc Sulfate 220 mg 06/29/20 13:45 07/07/20 09:42 Zinc Sulfate 220 Mg Cap PO 220 mg DAILY [facility] Administration Objective - Vital Signs Vital signs: Vital Signs Temp 97.7 F 07/07/20 15:30 Pulse 60 07/07/20 15:30 Resp 16 07/07/20 15:30 BP 146/87 07/07/20 15:30 Pulse Ox 100 07/07/20 15:30 Intake & Output 07/06/20 07/07/20 07/07/20 18:59 06:59 18:59 Intake Total 100 310 Output Total 600 700 Balance -500 -700 310 Weight 53.2 kg 53.2 kg Intake: Intake, IV Titration 100 Amount Piperacillin-Tazobactam 3 100 .375 gm In Sodium Chloride 0.9% 100 ml @ 25 mls/hr IVPB Q8H [facility] Rx#: [id number] Blood Product 310 Rc As-1 Unit 310 [id number] Output: Urine 600 700 Other: Voiding Method Ileal Conduit (Right) Ileal Conduit (Right) Ileal Conduit (Right) # Bowel Movements 3 - Exam GENERAL: The patient is alert and oriented x3, not in any acute distress. Well developed, well nourished. HEENT: Pupils are round and equally reacting to light. EOMI. No scleral icterus. No conjunctival pallor. Normocephalic, atraumatic. No pharyngeal erythema. No th yromegaly. CARDIOVASCULAR: S1 and S2 present. No murmurs, rubs, or gallops. PULMONARY: Chest is clear to auscultation, no wheezing or crackles. -ABDOMEN: Soft, nontender, nondistended, normoactive bowel sounds. No palpable organomegaly. Right lower abdomen Uro-bag MUSCULOSKELETAL: No joint swelling or deformity. EXTREMITIES: No cyanosis, clubbing, or pedal edema. NEUROLOGICAL: Gross neurological examination did not reveal any focal deficits. SKIN: No rashes. no petechiae. - Labs CBC & Chem 7: 07/07/20 04:20 07/07/20 04:20 Labs: Abnormal Lab Results - Last 24 Hours (Table) 07/05/20 07/07/20 07/07/20 Range/Units 09:29 04:20 04:20 WBC 15.20 H (4.50-10.00) X 10*3/uL RBC 2.54 L (4.10-5.20) X 10*6/uL Hgb 6.9 L* (12.0-15.0) g/dL Hct 23.4 L (37.2-46.3) % MCHC 29.5 L (32.0-37.0) g/dL RDW 17.6 H (11.5-14.5) % Plt Count 613 H (140-440) X 10*3/uL Plt Count Comment INCREASED A MPV 9.0 L (9.5-12.2) fL Immature Gran # 0.11 H (0.00-0.04) X 10*3/uL Neutrophils # 11.38 H (1.80-7.70) X 10*3/uL Monocytes # 1.76 H (0.20-1.00) X 10*3/uL Eosinophils # 1.03 H (0.04-0.35) X 10*3/uL Carbon Dioxide 14.5 L (21.6-31.8) mmol/L Anion Gap 13.50 H (4.00-12.00) mmol/L Est GFR (CKD-EPI)AfAm 46.9 L (60.0-200.0) Est GFR (CKD-EPI)NonAf 40.5 L (60.0-200.0) BUN/Creatinine Ratio 7.14 L (12.00-20.00) Ratio Glucose 113 H (70-110) mg/dL Calcium 8.1 L (8.7-10.3) mg/dL Crossmatch See Detail Assessment and Plan Assessment: Small bowel obstruction status post exploratory laparotomy and lysis of adhesions on 07/05. Acute blood loss anemia secondary to surgical blood loss and status post one unit of blood transfusion Klebsiella urinary tract infection Acute kidney injury on chronic kidney disease, stable Moderate bilateral hydronephrosis, evaluated by his urologist and recommended follow-up with her surgeon at [facility] History of cystectomy with ileo-loop. History of multiple surgical procedures Chronic hypertrophic count Leukocytosis, mostly reactive Plan: This is a pleasant 59 years old female presents with SBO status post exploratory laparotomy. Continue with Zosyn, continue gentle hydration. Surgery primary team on the case. Urologist already evaluated the patient and recommended that she follows up with her urologist Rl Ash at [facility], patient informed and she agrees Monitor hemoglobin .Labs and medication were reviewed.. Continue same treatment. Continue with symptomatic treatment. Resume home medication. Monitor lytes and vitals. DVT and GI prophylaxis. Further recommendationsas per clinical course of the patient DVT prophylaxis: Subcutaneous Lovenox GI Prophylaxis: Ppi PT/OT: Pending Prognosis is guarded
[2020-07-07] MEDS: traZODone HCL 100 MG TAB PO SCH (22:53)
[2020-07-08] MEDS: HYDROmorphone 1 MG/ML 1 ML SYRINGE IVP PRN ×5 (04:18→23:46)
[2020-07-08] MEDS: DEXTROSE 5%-0.9% NACL 1,000 ML IV SCH ×3 (04:21→19:58)
[2020-07-08 08:17] LABS: Anisocytosis Slight; Basophils % (A) 0 %; Eosinophils # (A) 0.6 k/uL (0-0.7); Eosinophils % (A) 5 %; HCT 27.4 % (34.0-46.0); HGB 8.4 gm/dL (11.4-16.0); Hypochromasia Marked; Lymphocytes # (A) 0.8 k/uL (1.0-4.8); Lymphocytes % (A) 6 %; MCH 27.2 pg (25.0-35.0); MCHC 30.5 g/dL (31.0-37.0); MCV 88.9 fL (80.0-100.0); Mean Platelet Volume 6.6; Monocytes # (A) 0.7 k/uL (0-1.0); Monocytes % (A) 5 %; Neutrophils # (A) 11.5 k/uL (1.3-7.7); Neutrophils % (A) 84 %; Platelet Count 622 k/uL (150-450); Poikilocytosis Slight; RBC 3.08 m/uL (3.80-5.40); RDW 17.1 % (11.5-15.5); WBC 13.7 k/uL (3.8-10.6)
[2020-07-08] MEDS: CHOLECALCIFEROL 25 MCG (1000 IU) TABLET PO SCH (08:26)
[2020-07-08] MEDS: DOCUSATE 100 MG CAP PO SCH ×2 (08:26→19:59)
[2020-07-08] MEDS: PIPERACILLIN-TAZOBACTAM 3.375 GM in SODIUM CHLORIDE 0.9% 100 ML IVPB SCH ×3 (08:26→23:47)
[2020-07-08] MEDS: NICOTINE 14MG/24HR PATCH TRANSDERM SCH (08:26)
[2020-07-08] MEDS: ASCORBIC ACID 500 MG TAB PO SCH (08:27)
[2020-07-08] MEDS: MULTIVITAMINS, THERA 1 EACH TAB PO SCH (08:27)
[2020-07-08] MEDS: DULoxetine HCL 60 MG CAPSULE.DR PO SCH ×2 (08:27→19:59)
[2020-07-08] MEDS: lisinopriL 20 MG TAB PO SCH (08:27)
[2020-07-08] MEDS: amLODIPine 10 MG TAB PO SCH (08:27)
[2020-07-08] MEDS: ALPRAZolam 1 MG TAB PO SCH ×4 (08:27→23:46)
[2020-07-08] MEDS: METOPROLOL TARTRATE 25 MG TAB PO SCH ×2 (08:27→19:59)
[2020-07-08] MEDS: busPIRone HCl 5 MG TAB PO SCH ×3 (08:27→19:58)
[2020-07-08] MEDS: PANTOPRAZOLE 40 MG/10 ML VIAL IVP SCH ×2 (08:27→19:58)
[2020-07-08 08:28] LABS: African American GFR (CKD) 50 (>60 ml/min/1.73 sqM); Anion Gap 10 mmol/L; Blood Urea Nitrogen 7 mg/dL (7-17); Calcium 8.2 mg/dL (8.4-10.2); Carbon Dioxide 16 mmol/L (22-30); Chloride 109 mmol/L (98-107); Glucose 122 mg/dL (74-99); Non-African American GFR(CKD) 43 (>60 ml/min/1.73 sqM); Potassium 3.3 mmol/L (3.5-5.1); Sodium 135 mmol/L (137-145)
[2020-07-08] MEDS: ENOXAPARIN 40 MG/0.4 ML SYRINGE SQ SCH (08:28)
[2020-07-08] MEDS: ZINC SULFATE 220 MG CAP PO SCH (08:28)
[2020-07-08] MEDS: carBAMazepine 200 MG TAB PO SCH ×2 (08:30→20:01)
[2020-07-08] MEDS: ONDANSETRON 4 MG/2 ML VIAL IVP PRN ×2 (08:31→17:17)
[2020-07-08] MEDS: IPRATROPIUM 0.5 MG/2.5 ML NEBU INHALATION SCH ×4 (08:51→20:52)
[2020-07-08] MEDS ORDERED: FUROSEMIDE 10 MG/ML 4 ML VIAL IV STA (10:20)
--- NOTE | 2020-07-08 10:50 | P.PN ---
Subjective Progress Note Date: 07/08/20 Principal diagnosis: Small bowel obstruction Patient complaining of mild nausea. Having some dry heaves. Says she is less distended. Tolerating full liquids. Asking for cottage cheese to eat. Today's hemoglobin improved at 8.4. Objective - Vital Signs Vital signs: Vital Signs Temp 98.0 F 07/08/20 07:54 Pulse 86 07/08/20 07:54 Resp 18 07/08/20 07:54 BP 163/90 07/08/20 07:54 Pulse Ox 95 07/08/20 07:54 Intake & Output 07/07/20 07/08/20 07/08/20 18:59 06:59 18:59 Intake Total 310 Output Total 700 800 Balance 310 -700 -800 Weight 53.2 kg Intake: Blood Product 310 Rc As-1 Unit 310 [id number] Output: Urine 700 800 Other: Voiding Method Ileal Conduit (Right) Ileal Conduit (Right) - Exam Abdomen: Soft, mild distention, mild tenderness, dressing clean and dry - Labs CBC & Chem 7: 07/08/20 07:31 07/08/20 07:31 Labs: Abnormal Lab Results - Last 24 Hours (Table) 07/05/20 07/07/20 07/07/20 Range/Units 09:29 04:20 04:20 WBC 15.20 H (4.50-10.00) X 10*3/uL RBC 2.54 L (4.10-5.20) X 10*6/uL Hgb 6.9 L* (12.0-15.0) g/dL Hct 23.4 L (37.2-46.3) % MCHC 29.5 L (32.0-37.0) g/dL RDW 17.6 H (11.5-14.5) % Plt Count 613 H (140-440) X 10*3/uL Plt Count Comment INCREASED A MPV 9.0 L (9.5-12.2) fL Immature Gran # 0.11 H (0.00-0.04) X 10*3/uL Neutrophils # 11.38 H (1.80-7.70) X 10*3/uL Lymphocytes # (1.0-4.8) k/uL Monocytes # 1.76 H (0.20-1.00) X 10*3/uL Eosinophils # 1.03 H (0.04-0.35) X 10*3/uL Sodium (137-145) mmol/L Potassium (3.5-5.1) mmol/L Chloride (98-107) mmol/L Carbon Dioxide 14.5 L (21.6-31.8) mmol/L Anion Gap 13.50 H (4.00-12.00) mmol/L Creatinine (0.52-1.04) mg/dL Est GFR (CKD-EPI)AfAm 46.9 L (60.0-200.0) Est GFR (CKD-EPI)NonAf 40.5 L (60.0-200.0) BUN/Creatinine Ratio 7.14 L (12.00-20.00) Ratio Glucose 113 H (70-110) mg/dL Calcium 8.1 L (8.7-10.3) mg/dL Crossmatch See Detail 07/08/20 07/08/20 Range/Units 07:31 07:31 WBC 13.7 H (4.50-10.00) X 10*3/uL RBC 3.08 L (4.10-5.20) X 10*6/uL Hgb 8.4 L (12.0-15.0) g/dL Hct 27.4 L (37.2-46.3) % MCHC 30.5 L (32.0-37.0) g/dL RDW 17.1 H (11.5-14.5) % Plt Count 622 H (140-440) X 10*3/uL Plt Count Comment MPV (9.5-12.2) fL Immature Gran # (0.00-0.04) X 10*3/uL Neutrophils # 11.5 H (1.80-7.70) X 10*3/uL Lymphocytes # 0.8 L (1.0-4.8) k/uL Monocytes # (0.20-1.00) X 10*3/uL Eosinophils # (0.04-0.35) X 10*3/uL Sodium 135 L (137-145) mmol/L Potassium 3.3 L (3.5-5.1) mmol/L Chloride 109 H (98-107) mmol/L Carbon Dioxide 16 L (21.6-31.8) mmol/L Anion Gap (4.00-12.00) mmol/L Creatinine 1.33 H (0.52-1.04) mg/dL Est GFR (CKD-EPI)AfAm (60.0-200.0) Est GFR (CKD-EPI)NonAf (60.0-200.0) BUN/Creatinine Ratio (12.00-20.00) Ratio Glucose 122 H (70-110) mg/dL Calcium 8.2 L (8.7-10.3) mg/dL Crossmatch Assessment and Plan (1) Abdominal pain Narrative/Plan: Patient is having bowel function at this time. Continue full liquids. Increase activity level. Recheck labs tomorrow. Current Visit: Yes Status: Acute Code(s): R10.9 - UNSPECIFIED ABDOMINAL PAIN SNOMED Code(s): 88593553
[2020-07-08] MEDS: ALBUTEROL HFA INHALER INHALATION PRN ×2 (11:26→15:36)
[2020-07-08] MEDS: FLUTICASONE 50MCG/SPRAY NASAL 16GM EA NOSTRIL SCH (11:53)
[2020-07-08] MEDS ORDERED: POTASSIUM CHLORIDE ER 20 MEQ TAB.ER PO STA (15:05)
--- NOTE | 2020-07-08 15:09 | P.PN ---
Subjective This is a pleasant 59 years old female with past medical history of asthma, hearing difficulty, hypertension, osteoarthritis, chronic back pain status post bariatric surgery and gastric bypass surgery, urinary bladder surgery after 12 years of indwelling urine catheter, Depression and bipolar disorder. She was admitted with signs and symptoms of bowel obstruction, she underwent exploratory laparotomy yesterday with the lysis of adhesions. Today is postoperative day #1., Patient is doing well and she is tolerating water this morning, diet will be assessed and advanced per surgery team, she has some nausea but no vomiting, just some mild expected abdominal pain and tenderness. No bowel movement or passing gas. On exam patient has no colostomy but ileal loop conduit for her previous bladder surgery with urine back connected. Has clear urine. Her labs showed leukocytosis, mostly reactive secondary to surgery. She has chronic high platelet count, currently 9/6 K. Creatinine 1.3 with baseline 1.1, it looks like patient has chronic kidney disease as well as March her creatinine was 1.1. Vitals are stable. She is on Zosyn and IV fluid but wasn't running today. Also she had small dose of Lasix 07/07/2020 Patient is tolerating liquid diet and today it was advanced to full liquid diet, she has some nausea but no vomiting, abdominal pain is mild, she has diarrhea today about twice in the morning She denies signs and symptoms of bipolar depression or suicidal ideation Daily labs showing a drop of her hemoglobin from 8.7 down to 6.9 and 1 unit of blood transfusion is provided. WBC is pending down also from 17,000-58, creat inine 1.3 up to 1.4. Platelets improved down to 613. She still on Zosyn and D5 normal saline at 125 mL/h. Also got 1 dose of Lasix 07/08/2020 Patient still on full liquid diet, and it was advanced today because of her persistent nausea. No significant abdominal pain but she has some loose bowel movement about twice a day. C. diff this is sent. She is status post one unit of blood transfusion yesterday and she got 1 dose of Lasix yesterday as well. She still have normal saline running at 1 25 mL/h and patient is pretty swollen, or give her another dose of Lasix today. WBC is trending down to 13 K, creatinine is stable at 1.3. Platelets are stable at 620 2K. Hemoglobin is improved with blood transfusion to 8.4. Extremities on Zosyn and IV fluids. Check labs in the morning including hemoglobin, electrolytes and creatinine and magnesium Review of systems CONSTITUTIONAL: No fever, no malaise, no fatigue. HEENT: No recent visual problems or hearing problems. Denied any sore throat. CARDIOVASCULAR: No orthopnea, PND, no palpitations, no syncope. PULMONARY: No shortness of breath, no cough, no hemoptysis. GASTROINTESTINAL: No diarrhea, no vomiting NEUROLOGICAL: No headaches, no weakness, no numbness. Active Medications Generic Name Dose Route Start Last Admin Trade Name Freq PRN Reason Stop Dose Admin Acetaminophen 650 mg 06/29/20 13:42 07/07/20 23:13 Acetaminophen Tab 325 Mg Tab PO 650 mg Q4H PRN Administration Pain Acetaminophen/Butalbital/Caffeine 1 each 06/29/20 13:42 07/06/20 18:07 Butalb/Apap/Caff 50-325-40mg Tab PO 1 each Q4H PRN Administration Migraine Headache Hydrocodone Bitart/Acetaminophen 1 each 06/29/20 13:42 07/07/20 18:30 Hydrocodone/Apap 10-325mg 1 Each Tab PO 1 each BID PRN Administration Pain Albuterol Sulfate 2 puff 06/29/20 13:42 07/08/20 11:26 Albuterol Hfa Inhaler INHALATION 2 puff RT-Q4H PRN Administration Shortness Of Breath Alprazolam 1 mg 06/29/20 18:00 07/08/20 08:27 Alprazolam 1 Mg Tab PO 1 mg QID HARRIET Administration Amlodipine Besylate 10 mg 06/30/20 09:00 07/08/20 08:27 Amlodipine 10 Mg Tab PO 10 mg DAILY HARRIET Administration Ascorbic Acid 1,000 mg 06/30/20 09:00 07/08/20 08:27 Ascorbic Acid 500 Mg Tab PO 1,000 mg DAILY HARRIET Administration Buspirone HCl 15 mg 06/29/20 16:00 07/08/20 08:27 Buspirone Hcl 5 Mg Tab PO 15 mg TID HARRIET Administration Carbamazepine 400 mg 06/29/20 21:00 07/08/20 08:30 Carbamazepine 200 Mg Tab PO 400 mg BID HARRIET Administration Cholecalciferol 25 mcg 06/30/20 09:00 07/08/20 08:26 Cholecalciferol 25 Mcg (1000 Iu) Tablet PO 25 mcg DAILY HARRIET Administration Dicyclomine HCl 20 mg 06/29/20 13:42 07/03/20 06:07 Dicyclomine 20 Mg Tab PO 20 mg TID PRN Administration Pain Diphenhydramine HCl 25 mg 07/03/20 12:04 07/04/20 11:27 Diphenhydramine 25 Mg Cap PO 25 mg QID PRN Administration Itching Docusate Sodium 100 mg 06/30/20 11:15 07/08/20 08:26 Docusate 100 Mg Cap PO Not Given BID HARRIET Duloxetine HCl 60 mg 06/29/20 13:45 07/08/20 08:27 Duloxetine Hcl 60 Mg Capsule.Dr PO 60 mg BID HARRIET Administration Enoxaparin Sodium 40 mg 07/06/20 09:00 07/08/20 08:28 Enoxaparin 40 Mg/0.4 Ml Syringe SQ 40 mg DAILY HARRIET Administration Fluticasone Propionate 1 spray 06/30/20 09:00 07/08/20 11:53 Fluticasone 50mcg/[place] Nasal 16gm EA NOSTRIL 1 spray DAILY HARRIET Administration Hydromorphone HCl 1 mg 06/29/20 09:00 07/08/20 11:53 Hydromorphone 1 Mg/Ml 1 Ml Syringe IVP 1 mg Q3HR PRN Administration Pain Sodium Chloride 1,000 mls @ 50 mls/hr 06/29/20 03:15 07/07/20 20:14 Saline 0.9% IV Not Given .Q20H HARRIET Piperacillin Sod/Tazobactam 100 mls @ 25 mls/hr 06/29/20 14:00 07/08/20 08:26 Sod 3.375 gm/ Sodium Chloride IVPB 25 mls/hr Q8H HARRIET Administration Lactated Ringer's 1,000 mls @ 20 mls/hr 07/05/20 05:00 07/07/20 23:09 Lactated Ringers IV Not Given .Q24H HARRIET Dextrose/Sodium Chloride 1,000 mls @ 125 mls/hr 07/05/20 16:15 07/08/20 11:53 Dextrose 5%-Ns Iv Soln IV 125 mls/hr .Q8H HARRIET Administration Ipratropium [place] 0.5 mg 06/30/20 08:00 07/08/20 11:26 Ipratropium 0.5 Mg/2.5 Ml Nebu INHALATION Not Given RT-QID HARRIET Lisinopril 40 mg 06/29/20 13:45 07/08/20 08:27 Lisinopril 20 Mg Tab PO 40 mg DAILY HARRIET Administration Metoprolol Tartrate 25 mg 06/29/20 13:45 07/08/20 08:27 Metoprolol Tartrate 25 Mg Tab PO 25 mg BID HARRIET Administration Miconazole Nitrate 1 applic 07/02/20 17:00 07/07/20 20:06 Miconazole 2% Vaginal Cream 45 Gm Tube/Kit VAGINAL Not Given HS HARRIET Morphine Sulfate 4 mg 06/29/20 02:50 Morphine Sulfate 4 Mg/Ml Syringe IVP Q4HR PRN Pain Multivitamins 1 each 06/30/20 09:00 07/08/20 08:27 Multivitamins, Thera 1 Each Tab PO 1 each DAILY HARRIET Administration Naloxone HCl 0.2 mg 06/29/20 03:14 Naloxone 0.4 Mg/Ml 1 Ml Vial IV Q2M PRN Opioid Reversal Nicotine 1 patch 06/29/20 11:15 07/08/20 08:26 Nicotine 14mg/24hr Patch TRANSDERM 1 patch DAILY HARRIET Administration Ondansetron HCl 4 mg 06/29/20 03:14 07/08/20 08:31 Ondansetron 4 Mg/2 Ml Vial IVP 4 mg Q8HR PRN Administration Nausea And Vomiting Pantoprazole Sodium 40 mg 06/29/20 14:00 07/08/20 08:27 Pantoprazole 40 Mg/10 Ml Vial IVP 40 mg BID HARRIET Administration Pravastatin Sodium 10 mg 06/29/20 21:00 07/07/20 20:13 Pravastatin Sodium 20 Mg Tab PO 10 mg HS HARRIET Administration Promethazine HCl 25 mg 06/29/20 13:42 Promethazine 25 Mg Tab PO Q12H PRN Nausea Sumatriptan Succinate 100 mg 06/29/20 13:42 07/06/20 22:02 Sumatriptan Succinate 50 Mg Tab PO 100 mg DAILY PRN Administration Migraine Headache Trazodone HCl 100 mg 06/29/20 21:00 07/07/20 22:53 Trazodone Hcl 100 Mg Tab PO 100 mg HS HARRIET Administration Zinc Sulfate 220 mg 06/29/20 13:45 07/08/20 08:28 Zinc Sulfate 220 Mg Cap PO 220 mg DAILY HARRIET Administration Objective - Vital Signs Vital signs: Vital Signs Temp 98.7 F 07/08/20 14:00 Pulse 82 07/08/20 14:00 Resp 18 07/08/20 14:00 BP 129/82 07/08/20 14:00 Pulse Ox 98 07/08/20 14:00 Intake & Output 07/07/20 07/08/20 07/08/20 18:59 06:59 18:59 Intake Total 310 Output Total 700 800 Balance 310 -700 -800 Weight 53.2 kg Intake: Blood Product 310 Rc As-1 Unit 310 [id number] Output: Urine 700 800 Other: Voiding Method Ileal Conduit (Right) Ileal Conduit (Right) - Exam GENERAL: The patient is alert and oriented x3, not in any acute distress. Well developed, well nourished. HEENT: Pupils are round and equally reacting to light. EOMI. No scleral icterus. No conjunctival pallor. Normocephalic, atraumatic. No pharyngeal erythema. No thyromegaly. CARDIOVASCULAR: S1 and S2 present. No murmurs, rubs, or gallops. PULMONARY: Chest is clear to auscultation, no wheezing or crackles. -ABDOMEN: Soft, nontender, nondistended, normoactive bowel sounds. No palpable organomegaly. Right lower abdomen Uro-bag MUSCULOSKELETAL: No joint swelling or deformity. EXTREMITIES: No cyanosis, clubbing, or pedal edema. NEUROLOGICAL: Gross neurological examination did not reveal any focal deficits. SKIN: No rashes. no petechiae. - Labs CBC & Chem 7: 07/08/20 07:31 07/08/20 07:31 Labs: Abnormal Lab Results - Last 24 Hours (Table) 07/05/20 07/08/20 07/08/20 Range/Units 09:29 07:31 07:31 WBC 13.7 H (3.8-10.6) k/uL RBC 3.08 L (3.80-5.40) m/uL Hgb 8.4 L (11.4-16.0) gm/dL Hct 27.4 L (34.0-46.0) % MCHC 30.5 L (31.0-37.0) g/dL RDW 17.1 H (11.5-15.5) % Plt Count 622 H (150-450) k/uL Neutrophils # 11.5 H (1.3-7.7) k/uL Lymphocytes # 0.8 L (1.0-4.8) k/uL Sodium 135 L (137-145) mmol/L Potassium 3.3 L (3.5-5.1) mmol/L Chloride 109 H (98-107) mmol/L Carbon Dioxide 16 L (22-30) mmol/L Creatinine 1.33 H (0.52-1.04) mg/dL Glucose 122 H (74-99) mg/dL Calcium 8.2 L (8.4-10.2) mg/dL Crossmatch See Detail Assessment and Plan Assessment: Small bowel obstruction status post exploratory laparotomy and lysis of adhesions on 07/05. Acute blood loss anemia secondary to surgical blood loss and status post one unit of blood transfusion Klebsiella urinary tract infection Acute kidney injury on chronic kidney disease, stable Moderate bilateral hydronephrosis, evaluated by his urologist and recommended follow-up with her surgeon at [facility] History of cystectomy with ileo-loop. History of multiple surgical procedures Chronic hypertrophic count Leukocytosis, mostly reactive Plan: This is a pleasant 59 years old female presents with SBO status post exploratory laparotomy. Continue with Zosyn, continue gentle hydration. Surgery primary team on the case. Urologist already evaluated the patient and recommended that she follows up with her urologist Rl Ash at [facility], patient informed and she agrees Monitor hemoglobin .Labs and medication were reviewed.. Continue same treatment. Continue with symptomatic treatment. Resume home medication. Monitor lytes and vitals. DVT and GI prophylaxis. Further recommendationsas per clinical course of the patient DVT prophylaxis: Subcutaneous Lovenox GI Prophylaxis: Ppi PT/OT: Pending Prognosis is guarded
[2020-07-08] MEDS: SODIUM CHLORIDE 0.9% 1,000 ML IV SCH (19:56)
[2020-07-08] MEDS: PRAVASTATIN SODIUM 20 MG TAB PO SCH (19:59)
[2020-07-08] MEDS: HYDROcodone/APAP 10-325MG 1 EACH TAB PO PRN (19:59)
[2020-07-08] MEDS: LACTATED RINGERS 1,000 ML IV SCH (20:01)
[2020-07-08] MEDS: MICONAZOLE 2% VAGINAL CREAM 45 GM TUBE/KIT VAGINAL SCH (20:01)
[2020-07-08] MEDS: traZODone HCL 100 MG TAB PO SCH (23:46)
[2020-07-09] MEDS: DEXTROSE 5%-0.9% NACL 1,000 ML IV SCH ×2 (05:31→21:21)
[2020-07-09] MEDS: ONDANSETRON 4 MG/2 ML VIAL IVP PRN ×2 (05:31→13:20)
[2020-07-09] MEDS: HYDROmorphone 1 MG/ML 1 ML SYRINGE IVP PRN ×5 (05:32→23:42)
[2020-07-09] MEDS: PIPERACILLIN-TAZOBACTAM 3.375 GM in SODIUM CHLORIDE 0.9% 100 ML IVPB SCH ×3 (05:32→21:24)
[2020-07-09 07:34] LABS: African American GFR (CKD) 44 (>60 ml/min/1.73 sqM); Anion Gap 9 mmol/L; Blood Urea Nitrogen 7 mg/dL (7-17); Calcium 8.2 mg/dL (8.4-10.2); Carbon Dioxide 16 mmol/L (22-30); Chloride 109 mmol/L (98-107); Glucose 83 mg/dL (74-99); Non-African American GFR(CKD) 38 (>60 ml/min/1.73 sqM); Potassium 3.3 mmol/L (3.5-5.1); Sodium 134 mmol/L (137-145)
[2020-07-09] MEDS: ALBUTEROL HFA INHALER INHALATION PRN ×4 (08:06→20:51)
[2020-07-09] MEDS: IPRATROPIUM 0.5 MG/2.5 ML NEBU INHALATION SCH ×4 (08:29→20:52)
[2020-07-09 09:05] LABS: Basophils # (A) 0.03 X 10*3/uL (0.00-0.10); Basophils % (A) 0.3 %; Eosinophils # (A) 0.87 X 10*3/uL (0.04-0.35); Eosinophils % (A) 7.7 %; HCT 26.5 % (37.2-46.3); HGB 8.1 g/dL (12.0-15.0); Lymphocytes # (A) 1.31 X 10*3/uL (0.90-5.00); Lymphocytes % (A) 11.5 %; MCH 27.3 pg (27.0-32.0); MCHC 30.6 g/dL (32.0-37.0); MCV 89.2 fL (80.0-97.0); Mean Platelet Volume 9.1 fL (9.5-12.2); Monocytes # (A) 1.06 X 10*3/uL (0.20-1.00); Monocytes % (A) 9.3 %; Neutrophils # (A) 8.03 X 10*3/uL (1.80-7.70); Neutrophils % (A) 70.7 %; Platelet Count 604 X 10*3/uL (140-440); RBC 2.97 X 10*6/uL (4.10-5.20); RDW 17.2 % (11.5-14.5); WBC 11.36 X 10*3/uL (4.50-10.00)
[2020-07-09] MEDS: ASCORBIC ACID 500 MG TAB PO SCH (09:08)
[2020-07-09] MEDS: PANTOPRAZOLE 40 MG/10 ML VIAL IVP SCH ×2 (09:08→21:15)
[2020-07-09] MEDS: NICOTINE 14MG/24HR PATCH TRANSDERM SCH (09:08)
[2020-07-09] MEDS: ENOXAPARIN 40 MG/0.4 ML SYRINGE SQ SCH (09:08)
[2020-07-09] MEDS: ZINC SULFATE 220 MG CAP PO SCH (09:09)
[2020-07-09] MEDS: busPIRone HCl 5 MG TAB PO SCH ×3 (09:09→21:24)
[2020-07-09] MEDS: amLODIPine 10 MG TAB PO SCH (09:09)
[2020-07-09] MEDS: lisinopriL 20 MG TAB PO SCH (09:09)
[2020-07-09] MEDS: METOPROLOL TARTRATE 25 MG TAB PO SCH ×2 (09:09→21:21)
[2020-07-09] MEDS: HYDROcodone/APAP 10-325MG 1 EACH TAB PO PRN (09:13)
[2020-07-09] MEDS: ALPRAZolam 1 MG TAB PO SCH ×4 (09:13→21:17)
[2020-07-09] MEDS: CHOLECALCIFEROL 25 MCG (1000 IU) TABLET PO SCH (09:13)
[2020-07-09] MEDS: carBAMazepine 200 MG TAB PO SCH ×2 (09:13→21:17)
[2020-07-09] MEDS: MULTIVITAMINS, THERA 1 EACH TAB PO SCH (09:13)
[2020-07-09] MEDS: DOCUSATE 100 MG CAP PO SCH ×2 (09:14→21:14)
[2020-07-09] MEDS: DULoxetine HCL 60 MG CAPSULE.DR PO SCH ×2 (09:19→21:17)
[2020-07-09] MEDS ORDERED: Potassium Replacement Protocol 1 EACH MISC MISCELLANE PRN (09:32)
--- NOTE | 2020-07-09 09:56 | P.PN ---
Subjective Progress Note Date: 07/09/20 Principal diagnosis: Small bowel obstruction Patient doing better today. Tolerating full liquids. Would like more to eat. White blood cell count 11.3, hemoglobin 8.1. No vomiting today. She is having liquid stools. Objective - Vital Signs Vital signs: Vital Signs Temp 98.1 F 07/09/20 07:43 Pulse 83 07/09/20 07:43 Resp 18 07/09/20 07:43 BP 110/72 07/09/20 07:43 Pulse Ox 98 07/09/20 07:43 Intake & Output 07/08/20 07/09/20 07/09/20 18:59 06:59 18:59 Intake Total 250 Output Total 1700 Balance -1700 250 Intake: Oral 250 Output: Urine 1700 Other: Voiding Method Ileal Conduit (Right) - Exam Abdomen: Soft, mild distention, incision clean and dry - Labs CBC & Chem 7: 07/09/20 05:47 07/09/20 05:47 Labs: Abnormal Lab Results - Last 24 Hours (Table) 07/09/20 07/09/20 Range/Units 05:47 05:47 WBC 11.36 H (4.50-10.00) X 10*3/uL RBC 2.97 L (4.10-5.20) X 10*6/uL Hgb 8.1 L (12.0-15.0) g/dL Hct 26.5 L (37.2-46.3) % MCHC 30.6 L (32.0-37.0) g/dL RDW 17.2 H (11.5-14.5) % Plt Count 604 H (140-440) X 10*3/uL MPV 9.1 L (9.5-12.2) fL Immature Gran # 0.06 H (0.00-0.04) X 10*3/uL Neutrophils # 8.03 H (1.80-7.70) X 10*3/uL Monocytes # 1.06 H (0.20-1.00) X 10*3/uL Eosinophils # 0.87 H (0.04-0.35) X 10*3/uL Sodium 134 L (137-145) mmol/L Potassium 3.3 L (3.5-5.1) mmol/L Chloride 109 H (98-107) mmol/L Carbon Dioxide 16 L (22-30) mmol/L Creatinine 1.49 H (0.52-1.04) mg/dL Calcium 8.2 L (8.4-10.2) mg/dL Magnesium 1.0 L (1.6-2.3) mg/dL Assessment and Plan (1) Abdominal pain Narrative/Plan: Patient seems to be doing better. Will increase diet. Ambulate. Current Visit: Yes Status: Acute Code(s): R10.9 - UNSPECIFIED ABDOMINAL PAIN OMED Code(s): 93353405
[2020-07-09] MEDS ORDERED: Magnesium Replacement Protocol 1 EACH MISC MISCELLANE PRN (11:13)
[2020-07-09] MEDS: POTASSIUM CHLORIDE ER 20 MEQ TAB.ER PO SCH ×2 (11:36→13:20)
[2020-07-09] MEDS: MAGNESIUM SULFATE-D5W PMX 1 GM in DEXTROSE/WATER 1 100ML.BAG IVPB SCH ×3 (11:36→16:49)
[2020-07-09] MEDS: FLUTICASONE 50MCG/SPRAY NASAL 16GM EA NOSTRIL SCH (11:47)
--- NOTE | 2020-07-09 15:47 | P.PN ---
Subjective This is a pleasant 59 years old female with past medical history of asthma, hearing difficulty, hypertension, osteoarthritis, chronic back pain status post bariatric surgery and gastric bypass surgery, urinary bladder surgery after 12 years of indwelling urine catheter, Depression and bipolar disorder. She was admitted with signs and symptoms of bowel obstruction, she underwent exploratory laparotomy yesterday with the lysis of adhesions. Today is postoperative day #1., Patient is doing well and she is tolerating water this morning, diet will be assessed and advanced per surgery team, she has some nausea but no vomiting, just some mild expected abdominal pain and tenderness. No bowel movement or passing gas. On exam patient has no colostomy but ileal loop conduit for her previous bladder surgery with urine back connected. Has clear urine. Her labs showed leukocytosis, mostly reactive secondary to surgery. She has chronic high platelet count, currently 9/6 K. Creatinine 1.3 with baseline 1.1, it looks like patient has chronic kidney disease as well as March her creatinine was 1.1. Vitals are stable. She is on Zosyn and IV fluid but wasn't running today. Also she had small dose of Lasix 07/07/2020 Patient is tolerating liquid diet and today it was advanced to full liquid diet, she has some nausea but no vomiting, abdominal pain is mild, she has diarrhea today about twice in the morning She denies signs and symptoms of bipolar depression or suicidal ideation Daily labs showing a drop of her hemoglobin from 8.7 down to 6.9 and 1 unit of blood transfusion is provided. WBC is pending down also from 17,000-58, creat inine 1.3 up to 1.4. Platelets improved down to 613. She still on Zosyn and D5 normal saline at 125 mL/h. Also got 1 dose of Lasix 07/08/2020 Patient still on full liquid diet, and it was advanced today because of her persistent nausea. No significant abdominal pain but she has some loose bowel movement about twice a day. C. diff this is sent. She is status post one unit of blood transfusion yesterday and she got 1 dose of Lasix yesterday as well. She still have normal saline running at 1 25 mL/h and patient is pretty swollen, or give her another dose of Lasix today. WBC is trending down to 13 K, creatinine is stable at 1.3. Platelets are stable at 620 2K. Hemoglobin is improved with blood transfusion to 8.4. Extremities on Zosyn and IV fluids. Check labs in the morning including hemoglobin, electrolytes and creatinine and magnesium 07/09/2020 Patient is awake and alert, patient had some abdominal pain and nausea but she tolerates her liquid diet and can be advanced to soft diet after discussion with surgery team. She has soft/formed stool today. Her blood pressure is stable however it was on the low side overnight 95/62, because of that. Hold Norvasc. Patient continue on antiplatelet. WBC, down to 11 and hemoglobin is stable at 8.1. Platelets 604K and creatinine is stable at 1.4. Patient remains on Zosyn and IV fluids Objective - Vital Signs Vital signs: Vital Signs Temp 98.4 F 07/09/20 14:25 Pulse 80 07/09/20 14:25 Resp 16 07/09/20 14:47 BP 133/82 07/09/20 14:25 Pulse Ox 97 07/09/20 14:25 Intake & Output 07/08/20 07/09/20 07/09/20 18:59 06:59 18:59 Intake Total 250 Output Total 1700 600 Balance -1700 250 -600 Intake: Oral 250 Output: Urine 1700 600 Other: Voiding Method Ileal Conduit (Right) Ileal Conduit (Right) - Exam GENERAL: The patient is alert and oriented x3, not in any acute distress. Well developed, well nourished. HEENT: Pupils are round and equally reacting to light. EOMI. No scleral icterus. No conjunctival pallor. Normocephalic, atraumatic. No pharyngeal erythema. No thyromegaly. CARDIOVASCULAR: S1 and S2 present. No murmurs, rubs, or gallops. PULMONARY: Chest is clear to auscultation, no wheezing or crackles. -ABDOMEN: Soft, nontender, nondistended, normoactive bowel sounds. No palpable organomegaly. Right lower abdomen Uro-bag MUSCULOSKELETAL: No joint swelling or deformity. EXTREMITIES: No cyanosis, clubbing, or pedal edema. NEUROLOGICAL: Gross neurological examination did not reveal any focal deficits. SKIN: No rashes. no petechiae. - Labs CBC & Chem 7: 07/09/20 05:47 07/09/20 05:47 Labs: Abnormal Lab Results - Last 24 Hours (Table) 07/09/20 07/09/20 Range/Units 05:47 05:47 WBC 11.36 H (4.50-10.00) X 10*3/uL RBC 2.97 L (4.10-5.20) X 10*6/uL Hgb 8.1 L (12.0-15.0) g/dL Hct 26.5 L (37.2-46.3) % MCHC 30.6 L (32.0-37.0) g/dL RDW 17.2 H (11.5-14.5) % Plt Count 604 H (140-440) X 10*3/uL MPV 9.1 L (9.5-12.2) fL Immature Gran # 0.06 H (0.00-0.04) X 10*3/uL Neutrophils # 8.03 H (1.80-7.70) X 10*3/uL Monocytes # 1.06 H (0.20-1.00) X 10*3/uL Eosinophils # 0.87 H (0.04-0.35) X 10*3/uL Sodium 134 L (137-145) mmol/L Potassium 3.3 L (3.5-5.1) mmol/L Chloride 109 H (98-107) mmol/L Carbon Dioxide 16 L (22-30) mmol/L Creatinine 1.49 H (0.52-1.04) mg/dL Calcium 8.2 L (8.4-10.2) mg/dL Magnesium 1.0 L (1.6-2.3) mg/dL Assessment and Plan Assessment: Small bowel obstruction status post exploratory laparotomy and lysis of adhesions on 07/05. Acute blood loss anemia secondary to surgical blood loss and status post one unit of blood transfusion Klebsiella urinary tract infection Acute kidney injury on chronic kidney disease, stable Moderate bilateral hydronephrosis, evaluated by his urologist and recommended follow-up with her surgeon at [facility] History of cystectomy with ileo-loop. History of multiple surgical procedures Chronic hypertrophic count Leukocytosis, mostly reactive Plan: This is a pleasant 59 years old female presents with SBO status post exploratory laparotomy. Continue with Zosyn, continue gentle hydration. Surgery primary team on the case. Advance diet as tolerated. Urologist already evaluated the patient and recommended that she follows up with her urologist Rl Ash at [facility], patient informed and she agrees Monitor hemoglobin .Labs and medication were reviewed.. Continue same treatment. Continue with symptomatic treatment. Resume home medication. Monitor lytes and vitals. DVT and GI prophylaxis. Further recommendationsas per clinical course of the patient DVT prophylaxis: Subcutaneous Lovenox GI Prophylaxis: Ppi PT/OT: Pending
[2020-07-09] MEDS: SODIUM CHLORIDE 0.9% 1,000 ML IV SCH (21:10)
[2020-07-09] MEDS: MICONAZOLE 2% VAGINAL CREAM 45 GM TUBE/KIT VAGINAL SCH (21:15)
[2020-07-09] MEDS: PRAVASTATIN SODIUM 20 MG TAB PO SCH (21:18)
[2020-07-09] MEDS: traZODone HCL 100 MG TAB PO SCH (23:42)
[2020-07-10] MEDS: HYDROmorphone 1 MG/ML 1 ML SYRINGE IVP PRN ×5 (03:25→20:42)
[2020-07-10] MEDS: LACTATED RINGERS 1,000 ML IV SCH (05:10)
[2020-07-10] MEDS: DEXTROSE 5%-0.9% NACL 1,000 ML IV SCH ×3 (05:11→15:54)
[2020-07-10 05:55] LABS: Albumin 2.4 g/dL (3.5-5.0); Calcium 8.3 mg/dL (8.4-10.2); Magnesium 1.7 mg/dL (1.6-2.3); Potassium 3.2 mmol/L (3.5-5.1); Total Bilirubin 0.3 mg/dL (0.2-1.3); Total Protein 5.2 g/dL (6.3-8.2)
[2020-07-10] MEDS: PIPERACILLIN-TAZOBACTAM 3.375 GM in SODIUM CHLORIDE 0.9% 100 ML IVPB SCH ×3 (06:07→22:18)
[2020-07-10] MEDS: ONDANSETRON 4 MG/2 ML VIAL IVP PRN ×2 (06:14→20:40)
[2020-07-10] MEDS ORDERED: POTASSIUM CHLORIDE ER 20 MEQ TAB.ER PO STA (08:27)
[2020-07-10] MEDS ORDERED: MAGNESIUM SULFATE-D5W PMX 1 GM in DEXTROSE/WATER 1 100ML.BAG IVPB ONE (09:00)
[2020-07-10] MEDS: IPRATROPIUM 0.5 MG/2.5 ML NEBU INHALATION SCH ×4 (09:21→19:33)
[2020-07-10] MEDS: ENOXAPARIN 40 MG/0.4 ML SYRINGE SQ SCH (09:47)
[2020-07-10] MEDS: FLUTICASONE 50MCG/SPRAY NASAL 16GM EA NOSTRIL SCH (09:48)
[2020-07-10] MEDS: PANTOPRAZOLE 40 MG/10 ML VIAL IVP SCH ×2 (09:49→20:50)
[2020-07-10] MEDS: NICOTINE 14MG/24HR PATCH TRANSDERM SCH (09:50)
[2020-07-10] MEDS: DOCUSATE 100 MG CAP PO SCH ×2 (09:55→20:47)
[2020-07-10] MEDS: METOPROLOL TARTRATE 25 MG TAB PO SCH ×2 (09:55→20:48)
[2020-07-10] MEDS: ASCORBIC ACID 500 MG TAB PO SCH (09:58)
[2020-07-10] MEDS: DULoxetine HCL 60 MG CAPSULE.DR PO SCH ×2 (09:59→20:48)
[2020-07-10] MEDS: ALPRAZolam 1 MG TAB PO SCH ×4 (09:59→22:17)
[2020-07-10] MEDS: busPIRone HCl 5 MG TAB PO SCH ×3 (10:01→22:17)
[2020-07-10] MEDS: carBAMazepine 200 MG TAB PO SCH ×2 (10:02→20:48)
[2020-07-10] MEDS: CHOLECALCIFEROL 25 MCG (1000 IU) TABLET PO SCH (10:02)
[2020-07-10] MEDS: lisinopriL 20 MG TAB PO SCH (10:03)
[2020-07-10] MEDS: ZINC SULFATE 220 MG CAP PO SCH (10:03)
[2020-07-10] MEDS: HYDROcodone/APAP 10-325MG 1 EACH TAB PO PRN ×3 (10:03→22:17)
[2020-07-10] MEDS: MULTIVITAMINS, THERA 1 EACH TAB PO SCH (10:03)
[2020-07-10] MEDS: ALBUTEROL HFA INHALER INHALATION PRN ×3 (11:20→19:33)
--- NOTE | 2020-07-10 12:57 | P.PN ---
Subjective Progress Note Date: 07/10/20 CHIEF COMPLAINT: Abdominal pain HISTORY OF PRESENT ILLNESS: Patient is postop day #5 status post exploratory laparotomy, lysis of adhesions, Enteroenterostomy between dilated small bowel and transverse colon for frozen abdomen and small bowel obstruction. Patient is sitting up in bed. She is complaining of gas pains crossing her abdomen. She is having bowel movements and passing gas. She denies any nausea or vomiting. She has been still requiring the IV Dilaudid. She usually does take Pike at home. She is on a low fiber diet. Afebrile. Magnesium 1.7 potassium 3.2 PHYSICAL EXAM: VITAL SIGNS: Reviewed. GENERAL: Well-developed in no acute distress. HEENT: No sclera icterus. Extraocular movements grossly intact. Moist buccal mucosa. Head is atraumatic, normocephalic. ABDOMEN: Soft mildly distended incisional dressing clean dry and intact. Urostomy NEUROLOGIC: Alert and oriented. Cranial nerves II through XII grossly intact. ASSESSMENT: 1. Frozen abdomen with small bowel obstruction status post exploratory laparotomy, lysis of adhesions, enteroenterostomy between dilated small bowel and transverse colon 2. Leukocytosis 3. Anemia likely aida-dilutional, secondary to IV fluids. Patient did receive blood transfusion this admission 4. Acute kidney injury 5. UTI with Klebsiella 6. Hypokalemia and hypomagnesemia PLAN: -Replace potassium and magnesium -Continue low fiber diet -Continue antibiotic -Adjusting Pike to every 6 hours as needed for pain -Add simethicone drops for gas pains -Encourage patient to ambulate -Continue IV fluids -Encourage patient to use incentive spirometer -GI prophylaxis Protonix and DVT prophylaxis Lovenox Physician Research Assistant note has been reviewed by physician. Signing provider agrees with the documented findings, assessment, and plan of care. Objective - Vital Signs Vital signs: Vital Signs Temp 98.1 F 07/10/20 08:30 Pulse 75 07/10/20 08:30 Resp 18 07/10/20 11:11 BP 154/85 07/10/20 08:30 Pulse Ox 100 07/10/20 08:30 Intake & Output 07/09/20 07/10/20 07/10/20 18:59 06:59 18:59 Output Total 600 1500 Balance -600 -1500 Weight 53.2 kg Output: Urine 600 1500 Other: Voiding Method Ileal Conduit (Right) Ileal Conduit (Right) # Voids 1 - Labs CBC & Chem 7: 07/09/20 05:47 07/10/20 05:12 Labs: Abnormal Lab Results - Last 24 Hours (Table) 07/10/20 Range/Units 05:12 Sodium 134 L (137-145) mmol/L Potassium 3.2 L (3.5-5.1) mmol/L Chloride 109 H (98-107) mmol/L Carbon Dioxide 16 L (22-30) mmol/L Creatinine 1.41 H (0.52-1.04) mg/dL Calcium 8.3 L (8.4-10.2) mg/dL AST 12 L (14-36) U/L Total Protein 5.2 L (6.3-8.2) g/dL Albumin 2.4 L (3.5-5.0) g/dL
[2020-07-10] MEDS: SIMETHICONE 40 MG/0.6 ML DROPS 2,000 MG/30 ML BOTTLE PO SCH ×3 (13:02→20:51)
[2020-07-10] MEDS: MICONAZOLE 2% VAGINAL CREAM 45 GM TUBE/KIT VAGINAL SCH (20:48)
[2020-07-10] MEDS: PRAVASTATIN SODIUM 20 MG TAB PO SCH (20:50)
[2020-07-11] MEDS: HYDROmorphone 1 MG/ML 1 ML SYRINGE IVP PRN ×6 (01:18→21:19)
[2020-07-11] MEDS: traZODone HCL 100 MG TAB PO SCH ×2 (01:59→21:20)
[2020-07-11] MEDS: HYDROcodone/APAP 10-325MG 1 EACH TAB PO PRN ×4 (04:36→22:41)
[2020-07-11] MEDS: ONDANSETRON 4 MG/2 ML VIAL IVP PRN ×2 (04:43→12:55)
[2020-07-11] MEDS: LACTATED RINGERS 1,000 ML IV SCH (06:02)
[2020-07-11] MEDS: PIPERACILLIN-TAZOBACTAM 3.375 GM in SODIUM CHLORIDE 0.9% 100 ML IVPB SCH ×3 (06:13→22:02)
[2020-07-11] MEDS: DEXTROSE 5%-0.9% NACL 1,000 ML IV SCH ×3 (06:15→16:46)
[2020-07-11 07:29] LABS: Anisocytosis Slight; HCT 32.4 % (34.0-46.0); HGB 9.8 gm/dL (11.4-16.0); Hypochromasia Marked; MCHC 30.3 g/dL (31.0-37.0); MCV 89.1 fL (80.0-100.0); Mean Platelet Volume 7.2; Platelet Count 846 k/uL (150-450); Poikilocytosis Slight; RBC 3.64 m/uL (3.80-5.40); RDW 16.9 % (11.5-15.5); WBC 15.4 k/uL (3.8-10.6)
--- NOTE | 2020-07-11 07:35 | P.PN ---
Subjective This is a pleasant 59 years old female with past medical history of asthma, hearing difficulty, hypertension, osteoarthritis, chronic back pain status post bariatric surgery and gastric bypass surgery, urinary bladder surgery after 12 years of indwelling urine catheter, Depression and bipolar disorder. She was admitted with signs and symptoms of bowel obstruction, she underwent exploratory laparotomy yesterday with the lysis of adhesions. Today is postoperative day #1., Patient is doing well and she is tolerating water this morning, diet will be assessed and advanced per surgery team, she has some nausea but no vomiting, just some mild expected abdominal pain and tenderness. No bowel movement or passing gas. On exam patient has no colostomy but ileal loop conduit for her previous bladder surgery with urine back connected. Has clear urine. Her labs showed leukocytosis, mostly reactive secondary to surgery. She has chronic high platelet count, currently 9/6 K. Creatinine 1.3 with baseline 1.1, it looks like patient has chronic kidney disease as well as March her creatinine was 1.1. Vitals are stable. She is on Zosyn and IV fluid but wasn't running today. Also she had small dose of Lasix 07/07/2020 Patient is tolerating liquid diet and today it was advanced to full liquid diet, she has some nausea but no vomiting, abdominal pain is mild, she has diarrhea today about twice in the morning She denies signs and symptoms of bipolar depression or suicidal ideation Daily labs showing a drop of her hemoglobin from 8.7 down to 6.9 and 1 unit of blood transfusion is provided. WBC is pending down also from 17,000-58, creat inine 1.3 up to 1.4. Platelets improved down to 613. She still on Zosyn and D5 normal saline at 125 mL/h. Also got 1 dose of Lasix 07/08/2020 Patient still on full liquid diet, and it was advanced today because of her persistent nausea. No significant abdominal pain but she has some loose bowel movement about twice a day. C. diff this is sent. She is status post one unit of blood transfusion yesterday and she got 1 dose of Lasix yesterday as well. She still have normal saline running at 1 25 mL/h and patient is pretty swollen, or give her another dose of Lasix today. WBC is trending down to 13 K, creatinine is stable at 1.3. Platelets are stable at 620 2K. Hemoglobin is improved with blood transfusion to 8.4. Extremities on Zosyn and IV fluids. Check labs in the morning including hemoglobin, electrolytes and creatinine and magnesium 07/09/2020 Patient is awake and alert, patient had some abdominal pain and nausea but she tolerates her liquid diet and can be advanced to soft diet after discussion with surgery team. She has soft/formed stool today. Her blood pressure is stable however it was on the low side overnight 95/62, because of that. Hold Norvasc. Patient continue on antiplatelet. WBC, down to 11 and hemoglobin is stable at 8.1. Platelets 604K and creatinine is stable at 1.4. Patient remains on Zosyn and IV fluids 07/10/2020 Patient is tolerating chopped diet, no nausea or vomiting but she still have abdominal pain after advancing the diet. She is having soft/formed stool. Groves is been added by surgery primary team, IV fluids stopped, Storey catheter discontinued and discussed with staff to check bladder scan. Surgery team on the case and they provided postoperative care She still have mild leukocytosis at 11.3, trending down. Low potassium is been replaced and all magnesium replacement as well. She is hemodynamically stable and blood pressure is improved with systolic 1:30 to 140. Norvasc has been held while continue on antihypertensive medication. Patient also continue on Zosyn due to suspected intra-abdominal infection and hypotension few days ago. Objective - Vital Signs Vital signs: Vital Signs Temp 98.1 F 07/10/20 08:30 Pulse 75 07/10/20 08:30 Resp 18 07/10/20 11:11 BP 154/85 07/10/20 08:30 Pulse Ox 100 07/10/20 08:30 Intake & Output 07/09/20 07/10/20 07/10/20 18:59 06:59 18:59 Output Total 600 1500 Balance -600 -1500 Weight 53.2 kg Output: Urine 600 1500 Other: Voiding Method Ileal Conduit (Right) Ileal Conduit (Right) # Voids 1 - Exam GENERAL: The patient is alert and oriented x3, not in any acute distress. Well developed, well nourished. HEENT: Pupils are round and equally reacting to light. EOMI. No scleral icterus. No conjunctival pallor. Normocephalic, atraumatic. No pharyngeal erythema. No thyromegaly. CARDIOVASCULAR: S1 and S2 present. No murmurs, rubs, or gallops. PULMONARY: Chest is clear to auscultation, no wheezing or crackles. -ABDOMEN: Soft, nontender, nondistended, normoactive bowel sounds. No palpable organomegaly. Right lower abdomen Uro-bag MUSCULOSKELETAL: No joint swelling or deformity. EXTREMITIES: No cyanosis, clubbing, or pedal edema. NEUROLOGICAL: Gross neurological examination did not reveal any focal deficits. SKIN: No rashes. no petechiae. - Labs CBC & Chem 7: 07/11/20 06:28 07/10/20 05:12 Labs: Abnormal Lab Results - Last 24 Hours (Table) 07/10/20 Range/Units 05:12 Sodium 134 L (137-145) mmol/L Potassium 3.2 L (3.5-5.1) mmol/L Chloride 109 H (98-107) mmol/L Carbon Dioxide 16 L (22-30) mmol/L Creatinine 1.41 H (0.52-1.04) mg/dL Calcium 8.3 L (8.4-10.2) mg/dL AST 12 L (14-36) U/L Total Protein 5.2 L (6.3-8.2) g/dL Albumin 2.4 L (3.5-5.0) g/dL Assessment and Plan Assessment: Small bowel obstruction status post exploratory laparotomy and lysis of adhesions on 07/05. Acute blood loss anemia secondary to surgical blood loss and status post one unit of blood transfusion Klebsiella urinary tract infection Acute kidney injury on chronic kidney disease, stable Moderate bilateral hydronephrosis, evaluated by his urologist and recommended follow-up with her surgeon at [facility] History of cystectomy with ileo-loop. History of multiple surgical procedures Chronic hypertrophic count Leukocytosis, mostly reactive Plan: This is a pleasant 59 years old female presents with SBO status post exploratory laparotomy. Continue with Zosyn, discontinue IV fluids. Surgery primary team on the case. Advance diet as tolerated. Urologist already evaluated the patient and recommended that she follows up with her urologist Rl Ash at [facility], patient informed and she agrees Monitor hemoglobin .Labs and medication were reviewed.. Continue same treatment. Continue with symptomatic treatment. Resume home medication. Monitor lytes and vitals. DVT and GI prophylaxis. Further recommendationsas per clinical course of the patient DVT prophylaxis: Subcutaneous Lovenox GI Prophylaxis: Ppi PT/OT: Pending
[2020-07-11 07:43] LABS: Calcium 9.1 mg/dL (8.4-10.2); Magnesium 1.7 mg/dL (1.6-2.3); Potassium 3.5 mmol/L (3.5-5.1)
[2020-07-11] MEDS ORDERED: POTASSIUM CHLORIDE ER 20 MEQ TAB.ER PO STA (08:11)
[2020-07-11] MEDS ORDERED: MAGNESIUM SULFATE-D5W PMX 1 GM in DEXTROSE/WATER 1 100ML.BAG IVPB ONE (08:30)
[2020-07-11] MEDS: ALBUTEROL HFA INHALER INHALATION PRN ×4 (08:41→21:41)
[2020-07-11] MEDS: IPRATROPIUM 0.5 MG/2.5 ML NEBU INHALATION SCH ×4 (08:44→21:42)
[2020-07-11] MEDS: BUTALB/APAP/CAFF 50-325-40MG TAB PO PRN (08:45)
[2020-07-11] MEDS: DULoxetine HCL 60 MG CAPSULE.DR PO SCH ×2 (08:54→21:22)
[2020-07-11] MEDS: ENOXAPARIN 40 MG/0.4 ML SYRINGE SQ SCH (08:54)
[2020-07-11] MEDS: FLUTICASONE 50MCG/SPRAY NASAL 16GM EA NOSTRIL SCH (08:54)
[2020-07-11] MEDS: lisinopriL 20 MG TAB PO SCH (08:54)
[2020-07-11] MEDS: CHOLECALCIFEROL 25 MCG (1000 IU) TABLET PO SCH (08:54)
[2020-07-11] MEDS: DOCUSATE 100 MG CAP PO SCH ×2 (08:54→21:22)
[2020-07-11] MEDS: PANTOPRAZOLE 40 MG/10 ML VIAL IVP SCH ×2 (08:55→21:18)
[2020-07-11] MEDS: MULTIVITAMINS, THERA 1 EACH TAB PO SCH (08:55)
[2020-07-11] MEDS: METOPROLOL TARTRATE 25 MG TAB PO SCH ×2 (08:55→21:20)
[2020-07-11] MEDS: ZINC SULFATE 220 MG CAP PO SCH (08:55)
[2020-07-11] MEDS: SIMETHICONE 40 MG/0.6 ML DROPS 2,000 MG/30 ML BOTTLE PO SCH ×4 (08:56→21:23)
[2020-07-11] MEDS: ASCORBIC ACID 500 MG TAB PO SCH (08:56)
[2020-07-11] MEDS: carBAMazepine 200 MG TAB PO SCH ×2 (08:56→21:22)
[2020-07-11] MEDS: busPIRone HCl 5 MG TAB PO SCH ×3 (08:56→21:21)
[2020-07-11] MEDS: ALPRAZolam 1 MG TAB PO SCH ×4 (08:56→21:22)
[2020-07-11] MEDS: NICOTINE 14MG/24HR PATCH TRANSDERM SCH (08:57)
--- NOTE | 2020-07-11 13:58 | XR ---
EXAMINATION TYPE: XR chest 1V portable DATE OF EXAM: 07/11/2020 Comparison: 12/14/2019 Clinical History: 59-year-old female increased WBC, crackles Findings: Some skin nancy are present along the midline epigastrium. Spinal stimulator array centered along t he mid thoracic spinal canal. The limits of normal in size. Hazy peripheral basilar opacities likely related to overlying soft tiss ue. No nina consolidation or pleural effusion. Impression: Borderline heart size. No definite acute process.
[2020-07-11] MEDS ORDERED: DEXTROSE 5%-0.9% NACL 1,000 ML IV SCH (14:00)
--- NOTE | 2020-07-11 15:05 | P.PN ---
Subjective Progress Note Date: 07/11/20 CHIEF COMPLAINT: Abdominal pain HISTORY OF PRESENT ILLNESS: Patient is postop day #6 status post exploratory laparotomy, lysis of adhesions, Enteroenterostomy between dilated small bowel and transverse colon for frozen abdomen and small bowel obstruction. Patient is sitting up in bed. She is still complaining of abdominal pain but reports that the pain is controlled. She is still having loose stools. 3 bowel was this morning. She is passing gas. No blood reported in the stools. She denies any vomiting. She does report having her chronic nausea. She is tolerating diet. She is eating small amounts of food. She is still requiring the IV Dilaudid. Afebrile. WBC did go up to 15.4 hemoglobin 9.8 potassium 3.2 magnesium 1.7 creatinine 1.36 PHYSICAL EXAM: VITAL SIGNS: Reviewed. GENERAL: Well-developed in no acute distress. HEENT: No sclera icterus. Extraocular movements grossly intact. Moist buccal mucosa. Head is atraumatic, normocephalic. ABDOMEN: Soft mildly distended incision clean dry and intact. Urostomy NEUROLOGIC: Alert and oriented. Cranial nerves II through XII grossly intact. ASSESSMENT: 1. Frozen abdomen with small bowel obstruction status post exploratory la parotomy, lysis of adhesions, enteroenterostomy between dilated small bowel and transverse colon 2. Leukocytosis will monitor 3. Anemia likely aida-dilutional, secondary to IV fluids. Patient did receive blood transfusion this admission 4. Acute kidney injury 5. UTI with Klebsiella 6. Hypokalemia and hypomagnesemia 7. Moderate bilateral hydronephrosis evaluated by urologist PLAN: -Replace potassium and magnesium again today -Continue low fiber diet -Continue antibiotic -Continue pain medication as needed -Encourage patient to ambulate -Encourage patient to use incentive spirometer -GI prophylaxis Protonix and DVT prophylaxis Lovenox Physician Advanced Quality Engineer note has been reviewed by physician. Signing provider agrees with the documented findings, assessment, and plan of care. Objective - Vital Signs Vital signs: Vital Signs Temp 97.9 F 07/11/20 14:25 Pulse 73 07/11/20 14:25 Resp 16 07/11/20 14:25 BP 147/90 07/11/20 14:25 Pulse Ox 98 07/11/20 14:25 Intake & Output 07/10/20 07/11/20 07/11/20 18:59 06:59 18:59 Intake Total 600 Output Total 1700 Balance -1100 Weight 53.2 kg Intake: Oral 600 Output: Urine 1700 Other: Voiding Method Ileal Conduit (Right) # Voids 3 # Bowel Movements 4 - Labs CBC & Chem 7: 07/11/20 06:28 07/11/20 06:28 Labs: Abnormal Lab Results - Last 24 Hours (Table) 07/11/20 07/11/20 Range/Units 06:28 06:28 WBC 15.4 H (3.8-10.6) k/uL RBC 3.64 L (3.80-5.40) m/uL Hgb 9.8 L (11.4-16.0) gm/dL Hct 32.4 L (34.0-46.0) % MCHC 30.3 L (31.0-37.0) g/dL RDW 16.9 H (11.5-15.5) % Plt Count 846 H (150-450) k/uL Sodium 133 L (137-145) mmol/L Carbon Dioxide 17 L (22-30) mmol/L Creatinine 1.36 H (0.52-1.04) mg/dL
[2020-07-11] MEDS: PROMETHAZINE 25 MG TAB PO PRN (16:47)
[2020-07-11] MEDS: ACETAMINOPHEN TAB 325 MG TAB PO PRN (17:52)
[2020-07-11] MEDS: PRAVASTATIN SODIUM 20 MG TAB PO SCH (21:21)
[2020-07-11] MEDS: MICONAZOLE 2% VAGINAL CREAM 45 GM TUBE/KIT VAGINAL SCH (21:23)
[2020-07-12] MEDS: HYDROmorphone 1 MG/ML 1 ML SYRINGE IVP PRN ×2 (00:13→08:52)
[2020-07-12] MEDS: DEXTROSE 5%-0.9% NACL 1,000 ML IV SCH ×2 (00:17→09:52)
[2020-07-12 01:39] VITALS: RESP 16
[2020-07-12] MEDS: LACTATED RINGERS 1,000 ML IV SCH (05:02)
[2020-07-12] MEDS: HYDROcodone/APAP 10-325MG 1 EACH TAB PO PRN (05:03)
[2020-07-12] MEDS: PIPERACILLIN-TAZOBACTAM 3.375 GM in SODIUM CHLORIDE 0.9% 100 ML IVPB SCH (06:04)
[2020-07-12] MEDS: ALPRAZolam 1 MG TAB PO SCH ×2 (06:05→11:00)
[2020-07-12 06:17] LABS: Anisocytosis Slight; Basophils % (A) 0 %; Eosinophils # (A) 0.9 k/uL (0-0.7); Eosinophils % (A) 9 %; HCT 26.6 % (34.0-46.0); HGB 8.7 gm/dL (11.4-16.0); Hypochromasia Moderate; Lymphocytes # (A) 0.9 k/uL (1.0-4.8); Lymphocytes % (A) 9 %; MCH 28.2 pg (25.0-35.0); MCHC 32.7 g/dL (31.0-37.0); MCV 86.3 fL (80.0-100.0); Mean Platelet Volume 6.9; Monocytes # (A) 0.5 k/uL (0-1.0); Monocytes % (A) 5 %; Neutrophils # (A) 7.6 k/uL (1.3-7.7); Neutrophils % (A) 77 %; Platelet Count 664 k/uL (150-450); Poikilocytosis Slight; RBC 3.08 m/uL (3.80-5.40); RDW 16.9 % (11.5-15.5)
[2020-07-12 06:30] LABS: Calcium 8.5 mg/dL (8.4-10.2); Potassium 3.2 mmol/L (3.5-5.1)
[2020-07-12 08:24] VITALS: PULSE 81; TEMP 98.2
[2020-07-12] MEDS ORDERED: POTASSIUM CHLORIDE ER 20 MEQ TAB.ER PO STA (08:29)
[2020-07-12] MEDS: SIMETHICONE 40 MG/0.6 ML DROPS 2,000 MG/30 ML BOTTLE PO SCH (08:48)
[2020-07-12] MEDS: carBAMazepine 200 MG TAB PO SCH (08:49)
[2020-07-12] MEDS: ASCORBIC ACID 500 MG TAB PO SCH (08:49)
[2020-07-12] MEDS: CHOLECALCIFEROL 25 MCG (1000 IU) TABLET PO SCH (08:49)
[2020-07-12] MEDS: busPIRone HCl 5 MG TAB PO SCH (08:49)
[2020-07-12] MEDS: DOCUSATE 100 MG CAP PO SCH ×2 (08:50→08:53)
[2020-07-12] MEDS: DULoxetine HCL 60 MG CAPSULE.DR PO SCH (08:50)
[2020-07-12] MEDS: METOPROLOL TARTRATE 25 MG TAB PO SCH (08:50)
[2020-07-12] MEDS: lisinopriL 20 MG TAB PO SCH (08:50)
[2020-07-12] MEDS: MULTIVITAMINS, THERA 1 EACH TAB PO SCH (08:50)
[2020-07-12] MEDS: ENOXAPARIN 40 MG/0.4 ML SYRINGE SQ SCH (08:50)
[2020-07-12] MEDS: FLUTICASONE 50MCG/SPRAY NASAL 16GM EA NOSTRIL SCH (08:50)
[2020-07-12] MEDS: PANTOPRAZOLE 40 MG/10 ML VIAL IVP SCH (08:51)
[2020-07-12] MEDS: ZINC SULFATE 220 MG CAP PO SCH (08:51)
[2020-07-12] MEDS: NICOTINE 14MG/24HR PATCH TRANSDERM SCH (08:52)
[2020-07-12] MEDS ORDERED: MAGNESIUM SULFATE-D5W PMX 1 GM in DEXTROSE/WATER 1 100ML.BAG IVPB ONE (09:00)
[2020-07-12] MEDS: ONDANSETRON 4 MG/2 ML VIAL IVP PRN (09:13)
[2020-07-12] MEDS: IPRATROPIUM 0.5 MG/2.5 ML NEBU INHALATION SCH ×2 (10:23→11:32)
--- NOTE | 2020-07-12 10:52 | P.DS ---
Providers Date of admission: 07/03/20 10:02 Expected date of discharge: 07/12/20 Attending physician: Annel Pantoja Consults: 06/29/20 08:05 Consult Physician Routine Consulting Provider: Saeed Munoz Consult Reason/Comments: abdominal pain Do you want consulting provider notified?: Yes 06/29/20 14:28 Consult Physician Urgent Consulting Provider: Abdoul Calderon Consult Reason/Comments: Bilateral hydroureteronephrosis Do you want consulting provider notified?: Yes Primary care physician: Brenden Cici [facility] Course: Discharge diagnosis 1. Frozen abdomen with small bowel obstruction status post exploratory laparotomy, lysis of adhesions, enteroenterostomy between dilated small bowel and transverse colon 2. Leukocytosis resolved 3. Anemia likely aida-dilutional, secondary to IV fluids. Patient did receive blood transfusion this admission 4. Acute kidney injury on chronic kidney disease 5. UTI with Klebsiella 6. Hypokalemia and hypomagnesemia being corrected 7. 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 Patient presents to the emergency room with complaints of lower abdominal pain with abdominal distention for the past week. She did have an episode of vomiting yesterday. Patient does report that she has been having bowel movements. Her last bowel movement was yesterday morning. She has had a decrease in appetite. She is passing some gas. She had a computed tomography scan of the abdomen and pelvis which showed moderate bilateral hydronephrosis. Dilated intrahepatic and extrahepatic biliary ducts with common bile duct measuring up to 20 mm in diameter unchanged from prior study. Status post cholecystectomy. Postsurgical changes from prior gastric bypass and small bowel surgeries. No evidence of bowel obstruction. Large fecal burden throughout the colon. Patient initially treated for constipation. However abdominal discomfort continued. She is only having small results with the enemas. Repeat computed tomography scan of the abdomen and pelvis ordered. Showing interval moderate to high grade distal small bowel obstruction. Patient went to surgery she is status post exploratory laparotomy, lysis of adhesions, enteroenterostomy between dilated small bowel and transverse colon for frozen abdomen with small bowel obstruction. Patient is tolerating diet. Her pain is controlled. She is having loose stools. She is afebrile. She is up and ambulating. She is stable for discharge. Please refer to chart for any further details. Physician Guide Travel note has been reviewed by physician. Signing provider agrees with the documented findings, assessment, and plan of care. Patient Condition at Discharge: Stable Plan - Discharge Summary Discharge Rx Participant: No New Discharge Prescriptions: New Potassium Chloride ER [K-Dur 20] 40 meq PO DAILY #30 tab HYDROcodone/APAP 10-325MG [Chazy 10-325] 1 tab PO Q6HR PRN 3 Days #12 tab PRN Reason: Pain Amoxicillin/Potassium Clav [Augmentin 875-125 Tablet] 1 tab PO Q12HR 1 Days #14 tab No Action carBAMazepine [TEGretol] 400 mg PO BID SUMAtriptan SUCCINATE [Imitrex] 100 mg PO DAILY PRN PRN Reason: Migraine Headache DULoxetine HCL [Cymbalta] 60 mg PO BID busPIRone HCL 15 mg PO TID Metoprolol Tartrate 25 mg PO BID ALPRAZolam [Xanax] 1 mg PO QID Fluticasone Nasal Chino [Flonase Nasal [place]] 1 spray EA NOSTRIL DAILY Dicyclomine HCl 20 mg PO TID PRN PRN Reason: Pain Albuterol Inhaler [Ventolin Hfa Inhaler] 2 puff INHALATION RT-Q4H PRN PRN Reason: Shortness Of Breath Butalb/APAP/Caff 50-325-40Mg [Fioricet 50-325-40] 1 tab PO Q4H PRN PRN Reason: Migraine Headache traZODone HCL [Desyrel] 100 mg PO HS Ondansetron [Zofran] 4 mg PO Q8HR PRN #20 tab PRN Reason: Nausea And Vomiting Pravastatin Sodium [Pravachol] 10 mg PO HS Tiotropium 18 Mcg/Puff [Spiriva] 1 puff INHALATION RT-DAILY Pantoprazole [Protonix] 40 mg PO BID #60 tab HYDROcodone/APAP 10-325MG [Chazy 10-325] 1 tab PO BID PRN PRN Reason: Pain Promethazine [Phenergan] 25 mg PO Q12H PRN PRN Reason: Nausea Acetaminophen Tab [Tylenol] 650 mg PO Q4H PRN PRN Reason: Pain Ascorbic Acid [Vitamin C] 1,000 mg PO DAILY Glucosam/Mukund-Msm1/C/Steve/Bosw [Glucosamine-Chondroitin Tablet] 1 tab PO DAILY Multivitamins, Thera [Multivitamin (formulary)] 1 tab PO DAILY Omeprazole [PriLOSEC] 40 mg PO DAILY #14 cap Cholecalciferol [Vitamin D3 (25 Mcg = 1000 Iu)] 25 mcg PO DAILY Zinc 50 mg PO DAILY amLODIPine [Norvasc] 10 mg PO DAILY Diphenoxylate HCl/Atropine [Lomotil 2.5-0.025 mg Tablet] 1 - 2 tab PO QID PRN PRN Reason: Diarrhea lisinopriL 40 mg PO DAILY Discharge Medication List DULoxetine HCL [Cymbalta] 60 mg PO BID 03/21/16 [History] SUMAtriptan SUCCINATE [Imitrex] 100 mg PO DAILY PRN 03/21/16 [History] carBAMazepine [TEGretol] 400 mg PO BID 03/21/16 [History] Metoprolol Tartrate 25 mg PO BID 02/02/19 [History] busPIRone HCL 15 mg PO TID 02/02/19 [History] ALPRAZolam [Xanax] 1 mg PO QID 04/20/19 [History] Dicyclomine HCl 20 mg PO TID PRN 04/20/19 [History] Fluticasone Nasal [place] [Flonase Nasal [place]] 1 spray EA NOSTRIL DAILY 04/20/19 [History] Albuterol Inhaler [Ventolin Hfa Inhaler] 2 puff INHALATION RT-Q4H PRN 08/04/19 [History] Butalb/APAP/Caff 50-325-40Mg [Fioricet 50-325-40] 1 tab PO Q4H PRN 08/04/19 [History] traZODone HCL [Desyrel] 100 mg PO HS 08/04/19 [History] Ondansetron [Zofran] 4 mg PO Q8HR PRN #20 tab 08/10/19 [Rx] Pravastatin Sodium [Pravachol] 10 mg PO HS 12/14/19 [History] Tiotropium 18 Mcg/Puff [Spiriva] 1 puff INHALATION RT-DAILY 12/14/19 [History] Pantoprazole [Protonix] 40 mg PO BID #60 tab 12/16/19 [Rx] HYDROcodone/APAP 10-325MG [Chazy 10-325] 1 tab PO BID PRN 02/14/20 [History] Promethazine [Phenergan] 25 mg PO Q12H PRN 02/14/20 [History] Acetaminophen Tab [Tylenol] 650 mg PO Q4H PRN 03/11/20 [History] Ascorbic Acid [Vitamin C] 1,000 mg PO DAILY 03/11/20 [History] Glucosam/Mukund-Msm1/C/Steve/Bosw [Glucosamine-Chondroitin Tablet] 1 tab PO DAILY 03/11/20 [History] Multivitamins, Thera [Multivitamin (formulary)] 1 tab PO DAILY 03/11/20 [Histo ry] Omeprazole [PriLOSEC] 40 mg PO DAILY #14 cap 03/11/20 [Rx] Cholecalciferol [Vitamin D3 (25 Mcg = 1000 Iu)] 25 mcg PO DAILY 05/30/20 [History] Zinc 50 mg PO DAILY 05/30/20 [History] Diphenoxylate HCl/Atropine [Lomotil 2.5-0.025 mg Tablet] 1 - 2 tab PO QID PRN 06/29/20 [History] amLODIPine [Norvasc] 10 mg PO DAILY 06/29/20 [History] lisinopriL 40 mg PO DAILY 06/29/20 [History] Amoxicillin/Potassium Clav [Augmentin 875-125 Tablet] 1 tab PO Q12HR 1 Days #14 tab 07/12/20 [Rx] HYDROcodone/APAP 10-325MG [Chazy 10-325] 1 tab PO Q6HR PRN 3 Days #12 tab 07/12/20 [Rx] Potassium Chloride ER [K-Dur 20] 40 meq PO DAILY #30 tab 07/12/20 [Rx] Follow up Appointment(s)/Referral(s): Rl Zelaya MD [REFERRING] - 10 Days (office not answering. Please call to make appointment ) Brenden Bolanos MD [Primary Care Provider] - 1-2 days Saeed Munoz MD [STAFF PHYSICIAN] - 1 Week Activity/Diet/Wound Care/Special Instructions: Medicine service to complete discharge med rec No driving while taking Chazy No lifting over 10 pounds You may shower. No soaking or tub baths for 2 weeks Very light activity until you are reevaluated at your follow up appointment with your surgeon Discharge Disposition: HOME SELF-CARE
[2020-07-12] MEDS: PROMETHAZINE 25 MG TAB PO PRN (11:11)
[2020-07-12] MEDS ORDERED: CALCIUM CARBONATE 500 MG CHEWABLE PO PRN (12:52)
[2020-07-12 13:37] VITALS: BP 145/85
--- NOTE | 2020-07-13 11:41 | CDI ---
Documentation Clarification Form Date: 07/13/20 From: Adwoa Guzman Phone: Admit Date: 07/03/2020 10:02:00 AM Patient Name: Nehemiah Carlson Visit Number: [id number] Discharge Date: 07/12/2020 01:41:00 PM ATTENTION: The Clinical Documentation Specialists (CDI) and [facility] Coding Staff appreciate your assistance in clarifying documentation. Please respond to the clarification below the line at the bottom and electronically sign. The CDI & [facility] Coding staff will review the response and follow-up if needed. Please note: Queries are made part of the Legal Health Record. If you have any questions, please contact the author of this message via ITS. Dr. Abdoul Calderon, Unspecified CKD is documented in 07/06 PN. Additional clarification regarding the stage of CKD is requested. History/Risk Factors: Urostomy with UTI and sepsis Patients Historical CR: 1.1 in March Clinical Indicators: 06/29- Current BUN: 29, 15, 7, 7, 10.0, 7, 7, 7, 8, 9 Current CR: 1.29, 1.11, 1.39, 1.36, 1.4, 1.33, 1.49, 1.41, 1.36, 1.45 Current GFR: 45, 54, 41, 42, 40.5, 43, 38, 40, 42, 39 Treatment: IV antibotics, further evaluation at [facility] with previous surgeon Please clarify the stage of the CKD, if known: [ ] CKD Stage 1 (GFR > 90) [ ] CKD Stage 2 (GFR 60-89) [ ] CKD Stage 3 (GFR 30-59) [ ] CKD Stage 3a (GFR 45-59) [ ] CKD Stage 3b (GFR 30-44) [ ] CKD Stage 4 (GFR 15-29) [ ] CKD Stage 5 (GFR <15) [ ] ESRD [ ] Other, please specify [ ] Unable to determine crf stage 2 MTDD
--- NOTE | 2020-07-13 11:58 | CDI ---
Documentation Clarification Form Date: 07/13/20 From: Adwoa Hinds Phone: If questions, call Lauren Taylor at [phone] between 9am and 5pm Admit Date: 07/03/2020 10:02:00 AM Patient Name: Nehemiah Carlson Visit Number: [id number] Discharge Date: 07/12/2020 01:41:00 PM ATTENTION: The Clinical Documentation Specialists (CDI) and [facility] Coding Staff appreciate your assistance in clarifying documentation. Please respond to the clarification below the line at the bottom and electronically sign. The CDI & [facility] Coding staff will review the response and follow-up if needed. Please note: Queries are made part of the Legal Health Record. If you have any questions, please contact the author of this message via ITS. Dr. Saeed Munoz, The patients principal diagnosis the diagnosis that was chiefly responsible for the admission - has not been clearly identified and clarification is requested. The patient presented was placed in observation with the abdominal pain with acute urinary tract infection with sepsis. Four days later she was converted to inpatient status, and was found to have a small bowel obstruction and subsequently underwent surgery on 07/05. History/Risk factors: ATN, bilateral hydoureteronephrosis, urostomy Clinical Indicators: UTI w sepsis on 06/29 and small bowel obstruction on 07/03. Lab findings: Klebsiella pneumoniae grew from urine culture Radiology findings: INTERVAL MODERATE TO HIGH GRADE DISTAL SMALL BOWEL OBSTRUCTION. SMALL FREE FLUID. PERSISTENT BILATERAL MODERATE HYDROURETERONEPHROSIS CHRONIC AND INCIDENTAL FINDINGS ABOVE. 07/03 Vital Signs: T-98.1, P-69, R-18, BP-166/87, O2 SAT-97 Treatment: IV Piperacillin-Tazobactam 06/29-07/12, In your professional opinion, can you please clarify which diagnosis, after study, was the reason chiefly responsible for the admission? [ ] Sepsis due to Klebsiella pneumoniae POA [ ] Small bowel obstruction POA [ ] Other, please specify [ ] Unable to determine unable to determine MTDD
== END 2020-07-12 13:41 | disposition home or self-care (01) | DRG 853 ==
LOC: EC 20:26 → 6PED 06-29 03:14 → OBSVTOIN 07-03 10:02 → 4SSUR 07-04 18:05 → 6PED 07-09 14:17
PROVIDERS: ADMIT Hospitalist; ATTEND Hospitalist
PROC: 0D180ZL Bypass Small Intestine to Transverse Colon, Open Approach (ICD-10-PCS; principal; 2020-07-05 11:10)
PROC: 0DNW0ZZ Release Peritoneum, Open Approach (ICD-10-PCS; principal; 2020-07-05 11:10)
DX: A41.59 Other Gram-negative sepsis (principal); N17.0 Acute kidney failure with tubular necrosis; K56.50 Intestinal adhesions [bands], unspecified as to partial versus complete obstruction; E87.1 Hypo-osmolality and hyponatremia; D62 Acute posthemorrhagic anemia; F31.30 Bipolar disorder, current episode depressed, mild or moderate severity, unspecified; N13.6 Pyonephrosis; Z93.6 Other artificial openings of urinary tract status; Z20.822 Contact with and (suspected) exposure to COVID-19; N18.2 Chronic kidney disease, stage 2 (mild); I12.9 Hypertensive chronic kidney disease with stage 1 through stage 4 chronic kidney disease, or unspecified chronic kidney disease; G89.29 Other chronic pain; M54.9 Dorsalgia, unspecified; F41.9 Anxiety disorder, unspecified; J45.909 Unspecified asthma, uncomplicated; K82.8 Other specified diseases of gallbladder; E87.5 Hyperkalemia; E83.42 Hypomagnesemia; E87.6 Hypokalemia; T38.0X5A Adverse effect of glucocorticoids and synthetic analogues, initial encounter; D72.829 Elevated white blood cell count, unspecified; H91.90 Unspecified hearing loss, unspecified ear; D64.9 Anemia, unspecified; M19.90 Unspecified osteoarthritis, unspecified site; F17.210 Nicotine dependence, cigarettes, uncomplicated; Z71.6 Tobacco abuse counseling; Z79.899 Other long term (current) drug therapy; Z96.82 Presence of neurostimulator; Z91.81 History of falling; Z87.01 Personal history of pneumonia (recurrent); Z90.49 Acquired absence of other specified parts of digestive tract; Z98.84 Bariatric surgery status; Z98.891 History of uterine scar from previous surgery; Z90.710 Acquired absence of both cervix and uterus; Z90.6 Acquired absence of other parts of urinary tract; Z98.51 Tubal ligation status; Z87.19 Personal history of other diseases of the digestive system; Z87.42 Personal history of other diseases of the female genital tract; Z87.448 Personal history of other diseases of urinary system; Z98.890 Other specified postprocedural states; Z81.1 Family history of alcohol abuse and dependence; Z82.69 Family history of other diseases of the musculoskeletal system and connective tissue; Z82.0 Family history of epilepsy and other diseases of the nervous system
CPT/HCPCS: 36410; 36415; 64999; 71045; 74176; 74177; 76937; 76942; 80048; 80053; 81001; 82150; 83605; 83690; 83735; 84132; 85025; 85027; 86850; 86900; 86901; 86920; 87040; 87077; 87086; 87186; 87635; 94640; 94760; 96365; 96375; 99285

== ENCOUNTER 2020-08-02 12:16 | Inpatient (IN) | payer MEDICARE, OTHER ==
[2020-08-02] MEDS ORDERED: SODIUM CHLORIDE 0.9% 1,000 ML IV STA ×2 (12:56)
[2020-08-02] MEDS ORDERED: HYDROmorphone 1 MG/ML 1 ML SYRINGE IVP STA (13:01)
[2020-08-02] MEDS ORDERED: ONDANSETRON 4 MG/2 ML VIAL IVP STA (13:01)
--- NOTE | 2020-08-02 13:04 | ED ---
Abdominal Pain HPI - General Chief Complaint: Abdominal Pain Stated Complaint: poss bowel obstruction Time Seen by Provider: 08/02/20 12:19 Source: patient Mode of arrival: wheelchair Limitations: no limitations - History of Present Illness Initial Comments: This is a 59-year-old female with history of a urostomy and history of a bowel obstruction with surgery month ago who is back today at the behest of her doctor and she is having persistent abdominal pain started doctor yesterday and outpatient CAT scan and kidney function test on her kidney functions are deteriorating also her CAT scan showed evidence of an ileus and partial small bowel obstruction. No fevers chills or sweats she states she's had decreased oral intake has been losing weight. No other complaints or modifying this time he does state the pain is about 10/10. MD Complaint: abdominal pain - Related Data Home Medications Medication Instructions Recorded Confirmed DULoxetine HCL [Cymbalta] 60 mg PO BID 03/21/16 08/02/20 SUMAtriptan SUCCINATE [Imitrex] 100 mg PO DAILY PRN 03/21/16 08/02/20 carBAMazepine [TEGretol] 400 mg PO BID 03/21/16 08/02/20 Metoprolol Tartrate 25 mg PO BID 02/02/19 08/02/20 busPIRone HCL 15 mg PO TID 02/02/19 08/02/20 ALPRAZolam [Xanax] 1 mg PO QID 04/20/19 08/02/20 Dicyclomine HCl 20 mg PO TID PRN 04/20/19 08/02/20 Fluticasone Nasal Marion [Flonase 1 spray EA NOSTRIL DAILY 04/20/19 08/02/20 Nasal Marion] Albuterol Inhaler [Ventolin Hfa 2 puff INHALATION RT-Q4H PRN 08/04/19 08/02/20 Inhaler] Butalb/APAP/Caff 50-325-40Mg 1 tab PO Q4H PRN 08/04/19 08/02/20 [Fioricet 50-325-40] traZODone HCL [Desyrel] 100 mg PO HS 08/04/19 08/02/20 Pravastatin Sodium [Pravachol] 10 mg PO HS 12/14/19 08/02/20 Tiotropium 18 Mcg/Puff [Spiriva] 1 puff INHALATION RT-DAILY 12/14/19 08/02/20 Promethazine [Phenergan] 25 mg PO Q12H PRN 02/14/20 08/02/20 Acetaminophen Tab [Tylenol] 650 mg PO Q4H PRN 03/11/20 08/02/20 Ascorbic Acid [Vitamin C] 1,000 mg PO DAILY 03/11/20 08/02/20 Glucosam/Mukund-Msm1/C/Steve/Bosw 1 tab PO DAILY 03/11/20 08/02/20 [Glucosamine-Chondroitin Tablet] Multivitamins, Thera [Multivitamin 1 tab PO DAILY 03/11/20 08/02/20 (formulary)] Cholecalciferol [Vitamin D3 (25 25 mcg PO DAILY 05/30/20 08/02/20 Mcg = 1000 Iu)] Zinc 50 mg PO DAILY 05/30/20 08/02/20 Diphenoxylate HCl/Atropine 1 - 2 tab PO QID PRN 06/29/20 08/02/20 [Lomotil 2.5-0.025 mg Tablet] amLODIPine [Norvasc] 10 mg PO DAILY 06/29/20 08/02/20 lisinopriL 40 mg PO DAILY 06/29/20 08/02/20 Previous Rx's Medication Instructions Recorded Ondansetron [Zofran] 4 mg PO Q8HR PRN #20 tab 08/10/19 Pantoprazole [Protonix] 40 mg PO BID #60 tab 12/16/19 Omeprazole [PriLOSEC] 40 mg PO DAILY #14 cap 03/11/20 HYDROcodone/APAP 10-325MG [Ramona 1 tab PO Q6HR PRN 3 Days #12 tab 07/12/20 10-325] Potassium Chloride ER [K-Dur 20] 40 meq PO DAILY #30 tab 07/12/20 Allergies Allergy/AdvReac Type Severity Reaction Status Date / Time No Known Allergies Allergy Verified 08/02/20 13:01 Review of Systems ROS Statement: Those systems with pertinent positive or pertinent negative responses have been documented in the HPI. ROS Other: All systems not noted in ROS Statement are negative. Past Medical History Past Medical History: Asthma, Blood Disorder, Chest Pain / Angina, Hearing Disorder / Deafness, Hypertension, Musculoskeletal Disorder, Osteoarthritis (OA), Pneumonia Additional Past Medical History / Comment(s): fluctuating body weight, chronic back pain with pain stimulator, history of iron deficiency,"low rbc's" & anemia requiring blood transfusions, uti, Hx falls & fx to left hip but no sx, dizzy spells, carpal tunnel, BOWEL OBSTRUCTIONS, pt has urostomy., States nausea and vomiting with abd pain-wt loss of 40 # History of Any Multi-Drug Resistant Organisms: None Reported Past Surgical History: Appendectomy, Bariatric Surgery, Bladder Surgery, Breast Surgery, Section, Cholecystectomy, Hysterectomy, Tubal Ligation Additional Past Surgical History / Comment(s): bladder suspension,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, gastric bypass, colon volvulus had exporatory lap w/lysis of adhesions and rt colectomy, urostomy Past Anesthesia/Blood Transfusion Reactions: No Reported Reaction Additional Past Anesthesia/Blood Transfusion Reaction / Comment(s): blood trandfusion- no reaction Past Psychological History: Anxiety, Bipolar, Depression Smoking Status: Current every day smoker Past Alcohol Use History: None Reported Past Drug Use History: None Reported - Past Family History Mother Family Medical History: No Reported History Additional Family Medical History / Comment(s): no history Father Family Medical History: No Reported History Additional Family Medical History / Comment(s): from alcoholism, gout Brother(s) Additional Family Medical History / Comment(s): seizure General Exam - General Exam Comments Initial Comments: This a well-developed asthenic appearing female who is awake alert oriented 3 Limitations: no limitations General appearance: alert, in no apparent distress Head exam: Present: atraumatic, normocephalic, normal inspection Eye exam: Present: normal appearance, PERRL, EOMI. Absent: scleral icterus, conjunctival injection, periorbital swelling ENT exam: Present: mucous membranes dry Neck exam: Present: normal inspection, full ROM. Absent: tenderness, meningismus, lymphadenopathy Respiratory exam: Present: normal lung sounds bilaterally. Absent: respiratory distress, wheezes, rales, rhonchi, stridor Cardiovascular Exam: Present: regular rate, normal rhythm, normal heart sounds. Absent: systolic murmur, diastolic murmur, rubs, gallop, clicks GI/Abdominal exam: Present: soft, distended, tenderness, normal bowel sounds, other (Her ostomy present right lower quadrant). Absent: guarding, rebound, rigid Rectal exam: Present: deferred Extremities exam: Present: normal inspection, full ROM, normal capillary refill. Absent: tenderness, pedal edema, joint swelling, calf tenderness Back exam: Present: normal inspection Neurological exam: Present: alert, oriented X3, CN II-XII intact Psychiatric exam: Present: normal affect, normal mood Skin exam: Present: warm, dry, intact, normal color. Absent: rash Course Vital Signs 08/02/20 08/02/20 08/02/20 12:24 13:29 14:00 Temperature 98.9 F Pulse Rate 90 90 87 Respiratory 20 16 16 Rate Blood Pressure 110/81 110/85 O2 Sat by Pulse 100 98 98 Oximetry 08/02/20 15:00 Temperature Pulse Rate 88 Respiratory 18 Rate Blood Pressure 125/94 O2 Sat by Pulse 100 Oximetry Medical Decision Making - Medical Decision Making I did review the imaging and report evidence of ileus with partial small bowel obstructions in the CAT scan earlier today. I did discuss the case with Dr. Zhang as well as with Dr. Munoz. Patient will be admitted to Dr. Zhang's service with Dr. Munoz on consult. - Lab Data Result diagrams: 08/02/20 13:03 08/02/20 13:03 Lab Results 08/02/20 08/02/20 08/02/20 Range/Units 13:03 13:03 13:03 WBC 9.6 (3.8-10.6) k/uL RBC 3.93 (3.80-5.40) m/uL Hgb 10.9 L (11.4-16.0) gm/dL Hct 34.9 (34.0-46.0) % MCV 89.0 (80.0-100.0) fL MCH 27.7 (25.0-35.0) pg MCHC 31.2 (31.0-37.0) g/dL RDW 19.6 H (11.5-15.5) % Plt Count 966 H (150-450) k/uL MPV 7.0 Neutrophils % 76 % Lymphocytes % 15 % Monocytes % 4 % Eosinophils % 4 % Basophils % 1 % Neutrophils # 7.4 (1.3-7.7) k/uL Lymphocytes # 1.4 (1.0-4.8) k/uL Monocytes # 0.4 (0-1.0) k/uL Eosinophils # 0.4 (0-0.7) k/uL Basophils # 0.1 (0-0.2) k/uL Hypochromasia Marked Poikilocytosis Moderate Anisocytosis Slight PT 10.1 (9.0-12.0) sec INR 0.9 (<1.2) APTT 23.4 (22.0-30.0) sec Sodium (137-145) mmol/L Potassium (3.5-5.1) mmol/L Chloride (98-107) mmol/L Carbon Dioxide (22-30) mmol/L Anion Gap mmol/L BUN (7-17) mg/dL Creatinine (0.52-1.04) mg/dL Est GFR (CKD-EPI)AfAm (>60 ml/min/1.73 sqM) Est GFR (CKD-EPI)NonAf (>60 ml/min/1.73 sqM) Glucose (74-99) mg/dL Plasma Lactic Acid Jaswinder (0.7-2.0) mmol/L Calcium (8.4-10.2) mg/dL Total Bilirubin (0.2-1.3) mg/dL AST (14-36) U/L ALT (4-34) U/L Alkaline Phosphatase (38-126) U/L Creatine Kinase (30-135) U/L Troponin I (0.000-0.034) ng/mL Total Protein (6.3-8.2) g/dL Albumin (3.5-5.0) g/dL Amylase (30-110) U/L Lipase (23-300) U/L Urine Color Light Yellow Urine Appearance Clear (Clear) Urine pH 6.5 (5.0-8.0) Ur Specific [place] 1.012 (1.001-1.035) Urine Protein 1+ H (Negative) Urine Glucose (UA) Negative (Negative) Urine Ketones Negative (Negative) Urine Blood Trace H (Negative) Urine Nitrite Negative (Negative) Urine Bilirubin Negative (Negative) Urine Urobilinogen <2.0 (<2.0) mg/dL Ur Leukocyte Esterase Moderate H (Negative) Urine RBC 1 (0-5) /hpf Urine WBC 7 H (0-5) /hpf Urine Bacteria Rare H (None) /hpf Urine Mucus Rare H (None) /hpf 08/02/20 08/02/20 08/02/20 Range/Units 13:03 13:03 13:03 WBC (3.8-10.6) k/uL RBC (3.80-5.40) m/uL Hgb (11.4-16.0) gm/dL Hct (34.0-46.0) % MCV (80.0-100.0) fL MCH (25.0-35.0) pg MCHC (31.0-37.0) g/dL RDW (11.5-15.5) % Plt Count (150-450) k/uL MPV Neutrophils % % Lymphocytes % % Monocytes % % Eosinophils % % Basophils % % Neutrophils # (1.3-7.7) k/uL Lymphocytes # (1.0-4.8) k/uL Monocytes # (0-1.0) k/uL Eosinophils # (0-0.7) k/uL Basophils # (0-0.2) k/uL Hypochromasia Poikilocytosis Anisocytosis PT (9.0-12.0) sec INR (<1.2) APTT (22.0-30.0) sec Sodium 131 L (137-145) mmol/L Potassium 3.6 (3.5-5.1) mmol/L Chloride 111 H (98-107) mmol/L Carbon Dioxide 9 L* (22-30) mmol/L Anion Gap 11 mmol/L BUN 35 H (7-17) mg/dL Creatinine 1.39 H (0.52-1.04) mg/dL Est GFR (CKD-EPI)AfAm 47 (>60 ml/min/1.73 sqM) Est GFR (CKD-EPI)NonAf 41 (>60 ml/min/1.73 sqM) Glucose 82 (74-99) mg/dL Plasma Lactic Acid Jaswinder 0.5 L (0.7-2.0) mmol/L Calcium 8.6 (8.4-10.2) mg/dL Total Bilirubin 0.4 (0.2-1.3) mg/dL AST 37 H (14-36) U/L ALT 24 (4-34) U/L Alkaline Phosphatase 198 H (38-126) U/L Creatine Kinase 50 (30-135) U/L Troponin I <0.012 (0.000-0.034) ng/mL Total Protein 7.0 (6.3-8.2) g/dL Albumin 3.4 L (3.5-5.0) g/dL Amylase 119 H (30-110) U/L Lipase 457 H (23-300) U/L Urine Color Urine Appearance (Clear) Urine pH (5.0-8.0) Ur Specific [place] (1.001-1.035) Urine Protein (Negative) Urine Glucose (UA) (Negative) Urine Ketones (Negative) Urine Blood (Negative) Urine Nitrite (Negative) Urine Bilirubin (Negative) Urine Urobilinogen (<2.0) mg/dL Ur Leukocyte Esterase (Negative) Urine RBC (0-5) /hpf Urine WBC (0-5) /hpf Urine Bacteria (None) /hpf Urine Mucus (None) /hpf Disposition Clinical Impression: Acute pancreatitis, Abdominal pain, Partial small bowel obstruction, Dehydrat ion Disposition: ADMITTED IP TO THIS [facility] Condition: Fair Referrals: Brenden Bolanos MD [Primary Care Provider] - 1-2 days
[2020-08-02 13:20] LABS: Anisocytosis Slight; Basophils # (A) 0.1 k/uL (0-0.2); Basophils % (A) 1 %; Eosinophils # (A) 0.4 k/uL (0-0.7); Eosinophils % (A) 4 %; HCT 34.9 % (34.0-46.0); HGB 10.9 gm/dL (11.4-16.0); Hypochromasia Marked; Lymphocytes # (A) 1.4 k/uL (1.0-4.8); Lymphocytes % (A) 15 %; MCH 27.7 pg (25.0-35.0); MCHC 31.2 g/dL (31.0-37.0); Monocytes # (A) 0.4 k/uL (0-1.0); Monocytes % (A) 4 %; Neutrophils # (A) 7.4 k/uL (1.3-7.7); Neutrophils % (A) 76 %; Platelet Count 966 k/uL (150-450); Poikilocytosis Moderate; RBC 3.93 m/uL (3.80-5.40); RDW 19.6 % (11.5-15.5); WBC 9.6 k/uL (3.8-10.6)
[2020-08-02 13:27] LABS: Albumin 3.4 g/dL (3.5-5.0); Calcium 8.6 mg/dL (8.4-10.2); Total Bilirubin 0.4 mg/dL (0.2-1.3)
[2020-08-02 13:28] LABS: Potassium 3.6 mmol/L (3.5-5.1)
[2020-08-02 13:31] LABS: INR 0.9 (<1.2); Partial Thromboplastin Time 23.4 sec (22.0-30.0); Prothrombin Time 10.1 sec (9.0-12.0)
--- NOTE | 2020-08-02 13:37 | XR ---
EXAMINATION TYPE: XR KUB DATE OF EXAM: 08/02/2020 COMPARISON: NONE HISTORY: Pain TECHNIQUE: Single supine KUB image of the abdomen is obtained FINDINGS: Distended small and large bowel with air-fluid level seen. Right lower quadrant ostomy identified. No convincing evidence for pneumoperitoneum. No unusual calcifications. The lung bases are clear. The osseous structures are intact. IMPRESSION: 1. Correlate for ileus. Distal obstructive change is difficult to exclude. Progress studies are advi sed.
[2020-08-02 13:45] LABS: Appearance,Urine Clear (Clear); Bacteria,Urine Rare /hpf; Bilirubin,Urine Negative (Negative); Blood,Urine Trace (Negative); Color,Urine Light Yellow; Glucose,Urine (UA) Negative (Negative); Ketones,Urine Negative (Negative); Leukocyte Esterase,Urine Moderate (Negative); Mucus,Urine Rare /hpf; Nitrite,Urine Negative (Negative); PH, Urine 6.5 (5.0-8.0); Protein,Urine 1+ (Negative); RBC,Urine 1 /hpf (0-5); Specific Gravity,Urine 1.012 (1.001-1.035); Urobilinogen,Urine <2.0 mg/dL (<2.0); WBC,Urine 7 /hpf (0-5)
[2020-08-02] MEDS ORDERED: NALOXONE 0.4 MG/ML 1 ML VIAL IV PRN (15:48)
--- NOTE | 2020-08-02 16:21 | P.GSCN ---
History of Present Illness Consult date: 08/02/20 History of present illness: CHIEF COMPLAINT: Abdominal pain with abdominal distention HISTORY OF PRESENT ILLNESS: This is a 59-year-old female with a known history of history of frozen abdomen on 07/05/2020 she underwent exploratory laparotomy, lysis of adhesions and enteroenterostomy between dilated small bowel and transverse colon with Dr. Munoz. She also has a history of gastric bypass, bowel obstruction with colon resection, volvulus of the cecum and ascending colon with right colectomy, cholecystectomy, bladder cystectomy with urostomy, section and hysterectomy. She also has a past medical history of pancreatitis, recurrent UTIs, bilateral hydronephrosis and chronic kidney disease. Patient presents to the emergency room with complaints of abdominal pain and abdominal distention for the past 5 days. She has been having nausea and vomiting. The last emesis was this morning. Her last bowel movement was 5 days ago. Her stools are always liquidy. Patient is been having dry heaves. And significant abdominal pain and abdominal distention. She has had poor oral intake. She feels very full and bloated. Her stomach is so bloated that she feels it's causing her to be short of breath. She had a computed tomography scan of the abdomen and pelvis completed outpatient with oral contrast that shows persistent severe bilateral hydronephrosis. Persistent diffuse prominent bowel loops without transition point suggesting ileus with probable partial bowel obstruction. Cannot exclude internal hernia as given the extensive surgical changes and the patient and areas of focal prominent bowel loops with focal mass effect. Findings slightly more progressed or more prominent from most recent CT study one month earlier. Surgical service on consult regarding patient's abdominal pain and possible partial small bowel obstruction. Patient also reporting that her urine has been cloudy. PAST MEDICAL HISTORY: See list. PAST SURGICAL HISTORY: See list. MEDICATIONS: See list. ALLERGIES: See list. SOCIAL HISTORY: No illicit drug use. REVIEW OF SYSTEMS: CONSTITUTIONAL: Denies fever or chills. HEENT: Denies blurred vision, vision changes, or eye pain. Denies hemoptysis CARDIOVASCULAR: Denies chest pain or pressure. RESPIRATORY: No shortness of breath. GASTROINTESTINAL: See HPI for pertinent findings HEMATOLOGIC: Denies bleeding disorders. GENITOURINARY: Denies any blood in urine or increased urinary frequency. SKIN: Denies pruitis. Denies rash. PHYSICAL EXAM: VITAL SIGNS: Reviewed GENERAL: Well-developed in no acute distress. HEENT: No sclera icterus. Extraocular movements grossly intact. Moist buccal mucosa. Head is atraumatic, normocephalic. No nasal drainage. ABDOMEN: Distended and tenderness on more the left lower abdomen. Urostomy on the right. NEUROLOGIC: Alert and oriented. Cranial nerves II through XII grossly intact. LABORATORY DATA: WBC 9.6 hemoglobin 10.9 platelets 966 sodium 131 potassium 3.6 chloride 111 CO2 9 BUN 35 creatinine 1.39 and lactic 0.5 glucose 82 AST 37 ALT 24 alk phos 198 albumin 3.4 amylase 119 lipase 457 Urinalysis showing moderate leukocyte esterase and WBCs 7 bacteria rare IMAGING: Computed tomography scan of the abdomen and pelvis completed outpatient with oral contrast that shows persistent severe bilateral hydronephrosis. Persistent diffuse prominent bowel loops without transition point suggesting ileus with probable partial bowel obstruction. Cannot exclude internal hernia as given the extensive surgical changes and the patient and areas of focal prominent bowel loops with focal mass effect. Findings slightly more progressed or more prominent from most recent CT study one month earlier Abdominal x-ray correlate for ileus. Distal obstructive changes difficult to exclude. Progress studies are advised. ASSESSMENT: 1. Abdominal pain with abdominal distention 2. Probable partial bowel obstruction versus ileus 3. History of frozen abdomen status post exploratory laparotomy, lysis of adhesions and enteroenterostomy between dilated small bowel and transverse colon on 07/05/2020 4. History of bowel obstructions 5. Elevated lipase and amylase and prior history of pancreatitis PLAN: -Keep patient nothing by mouth -Place NG tube for decompression -Continue IV fluids -Continue pain medication as needed -Continue antiemetics as needed -Further recommendations forthcoming per surgeon Thank you for this consultation Physician Placement Secretary note has been reviewed by physician. Signing provider agrees with the documented findings, assessment, and plan of care. Past Medical History Past Medical History: Asthma, Blood Disorder, Chest Pain / Angina, Hearing Disorder / Deafness, Hypertension, Musculoskeletal Disorder, Osteoarthritis (OA), Pneumonia Additional Past Medical History / Comment(s): fluctuating body weight, chronic back pain with pain stimulator, history of iron deficiency,"low rbc's" & anemia requiring blood transfusions, uti, Hx falls & fx to left hip but no sx, dizzy spells, carpal tunnel, BOWEL OBSTRUCTIONS, pt has urostomy., States nausea and vomiting with abd pain-wt loss of 40 # History of Any Multi-Drug Resistant Organisms: None Reported Past Surgical History: Appendectomy, Bariatric Surgery, Bladder Surgery, Breast Surgery, Section, Cholecystectomy, Hysterectomy, Tubal Ligation Additional Past Surgical History / Comment(s): bladder suspension,BLADDER R EMOVED R/T LONG HX OF IDC, gastric bypass, colon volvulus had exporatory lap w/lysis of adhesions and rt colectomy, urostomy Past Anesthesia/Blood Transfusion Reactions: No Reported Reaction Additional Past Anesthesia/Blood Transfusion Reaction / Comm: blood trandfusion- no reaction Past Psychological History: Anxiety, Bipolar, Depression Smoking Status: Current every day smoker Past Alcohol Use History: None Reported Past Drug Use History: None Reported - Past Family History Mother Family Medical History: No Reported History Additional Family Medical History / Comment(s): no history Father Family Medical History: No Reported History Additional Family Medical History / Comment(s): from alcoholism, gout Brother(s) Additional Family Medical History / Comment(s): seizure Medications and Allergies Home Medications Medication Instructions Recorded Confirmed Type DULoxetine HCL [Cymbalta] 60 mg PO BID 03/21/16 08/02/20 History SUMAtriptan SUCCINATE [Imitrex] 100 mg PO DAILY PRN 03/21/16 08/02/20 History carBAMazepine [TEGretol] 400 mg PO BID 03/21/16 08/02/20 History Metoprolol Tartrate 25 mg PO BID 02/02/19 08/02/20 History busPIRone HCL 15 mg PO TID 02/02/19 08/02/20 History ALPRAZolam [Xanax] 1 mg PO QID 04/20/19 08/02/20 History Dicyclomine HCl 20 mg PO TID PRN 04/20/19 08/02/20 History Fluticasone Nasal [place] [Flonase 1 spray EA NOSTRIL DAILY 04/20/19 08/02/20 History Nasal [place]] Albuterol Inhaler [Ventolin Hfa 2 puff INHALATION RT-Q4H PRN 08/04/19 08/02/20 History Inhaler] Butalb/APAP/Caff 50-325-40Mg 1 tab PO Q4H PRN 08/04/19 08/02/20 History [Fioricet 50-325-40] traZODone HCL [Desyrel] 100 mg PO HS 08/04/19 08/02/20 History Ondansetron [Zofran] 4 mg PO Q8HR PRN #20 tab 08/10/19 08/02/20 Rx Pravastatin Sodium [Pravachol] 10 mg PO HS 12/14/19 08/02/20 History Tiotropium 18 Mcg/Puff [Spiriva] 1 puff INHALATION RT-DAILY 12/14/19 08/02/20 History Pantoprazole [Protonix] 40 mg PO BID #60 tab 12/16/19 08/02/20 Rx Promethazine [Phenergan] 25 mg PO Q12H PRN 02/14/20 08/02/20 History Acetaminophen Tab [Tylenol] 650 mg PO Q4H PRN 03/11/20 08/02/20 History Ascorbic Acid [Vitamin C] 1,000 mg PO DAILY 03/11/20 08/02/20 History Glucosam/Mukund-Msm1/C/Steve/Bosw 1 tab PO DAILY 03/11/20 08/02/20 History [Glucosamine-Chondroitin Tablet] Multivitamins, Thera [Multivitamin 1 tab PO DAILY 03/11/20 08/02/20 History (formulary)] Omeprazole [PriLOSEC] 40 mg PO DAILY #14 cap 03/11/20 08/02/20 Rx Cholecalciferol [Vitamin D3 (25 25 mcg PO DAILY 05/30/20 08/02/20 History Mcg = 1000 Iu)] Zinc 50 mg PO DAILY 05/30/20 08/02/20 History Diphenoxylate HCl/Atropine 1 - 2 tab PO QID PRN 06/29/20 08/02/20 History [Lomotil 2.5-0.025 mg Tablet] amLODIPine [Norvasc] 10 mg PO DAILY 06/29/20 08/02/20 History lisinopriL 40 mg PO DAILY 06/29/20 08/02/20 History HYDROcodone/APAP 10-325MG [[place] 1 tab PO Q6HR PRN 3 Days #12 tab 07/12/20 08/02/20 Rx 10-325] Potassium Chloride ER [K-Dur 20] 40 meq PO DAILY #30 tab 07/12/20 08/02/20 Rx Allergies Allergy/AdvReac Type Severity Reaction Status Date / Time No Known Allergies Allergy Verified 08/02/20 13:01 Surgical - Exam Vital Signs Temp Pulse Resp BP Pulse Ox 98.9 F 90 20 110/81 100 08/02/20 12:24 08/02/20 12:24 08/02/20 12:24 08/02/20 12:24 08/02/20 12:24 Results - Labs 08/02/20 13:03 08/02/20 13:03 Abnormal Lab Results - Last 24 Hours (Table) 08/02/20 08/02/20 08/02/20 Range/Units 13:03 13:03 13:03 Hgb 10.9 L (11.4-16.0) gm/dL RDW 19.6 H (11.5-15.5) % Plt Count 966 H (150-450) k/uL Sodium 131 L (137-145) mmol/L Chloride 111 H (98-107) mmol/L Carbon Dioxide 9 L* (22-30) mmol/L BUN 35 H (7-17) mg/dL Creatinine 1.39 H (0.52-1.04) mg/dL Plasma Lactic Acid Jaswinder (0.7-2.0) mmol/L AST 37 H (14-36) U/L Alkaline Phosphatase 198 H (38-126) U/L Albumin 3.4 L (3.5-5.0) g/dL Amylase 119 H (30-110) U/L Lipase 457 H (23-300) U/L Urine Protein 1+ H (Negative) Urine Blood Trace H (Negative) Ur Leukocyte Esterase Moderate H (Negative) Urine WBC 7 H (0-5) /hpf Urine Bacteria Rare H (None) /hpf Urine Mucus Rare H (None) /hpf 08/02/20 Range/Units 13:03 Hgb (11.4-16.0) gm/dL RDW (11.5-15.5) % Plt Count (150-450) k/uL Sodium (137-145) mmol/L Chloride (98-107) mmol/L Carbon Dioxide (22-30) mmol/L BUN (7-17) mg/dL Creatinine (0.52-1.04) mg/dL Plasma Lactic Acid Jaswinder 0.5 L (0.7-2.0) mmol/L AST (14-36) U/L Alkaline Phosphatase (38-126) U/L Albumin (3.5-5.0) g/dL Amylase (30-110) U/L Lipase (23-300) U/L Urine Protein (Negative) Urine Blood (Negative) Ur Leukocyte Esterase (Negative) Urine WBC (0-5) /hpf Urine Bacteria (None) /hpf Urine Mucus (None) /hpf Diabetes panel 08/02/20 Range/Units 13:03 Sodium 131 L (137-145) mmol/L Potassium 3.6 (3.5-5.1) mmol/L Chloride 111 H (98-107) mmol/L Carbon Dioxide 9 L* (22-30) mmol/L BUN 35 H (7-17) mg/dL Creatinine 1.39 H (0.52-1.04) mg/dL Glucose 82 (74-99) mg/dL Calcium 8.6 (8.4-10.2) mg/dL AST 37 H (14-36) U/L ALT 24 (4-34) U/L Alkaline Phosphatase 198 H (38-126) U/L Total Protein 7.0 (6.3-8.2) g/dL Albumin 3.4 L (3.5-5.0) g/dL Calcium panel 08/02/20 Range/Units 13:03 Calcium 8.6 (8.4-10.2) mg/dL Albumin 3.4 L (3.5-5.0) g/dL Pituitary panel 08/02/20 Range/Units 13:03 Sodium 131 L (137-145) mmol/L Potassium 3.6 (3.5-5.1) mmol/L Chloride 111 H (98-107) mmol/L Carbon Dioxide 9 L* (22-30) mmol/L BUN 35 H (7-17) mg/dL Creatinine 1.39 H (0.52-1.04) mg/dL Glucose 82 (74-99) mg/dL Calcium 8.6 (8.4-10.2) mg/dL Adrenal panel 08/02/20 Range/Units 13:03 Sodium 131 L (137-145) mmol/L Potassium 3.6 (3.5-5.1) mmol/L Chloride 111 H (98-107) mmol/L Carbon Dioxide 9 L* (22-30) mmol/L BUN 35 H (7-17) mg/dL Creatinine 1.39 H (0.52-1.04) mg/dL Glucose 82 (74-99) mg/dL Calcium 8.6 (8.4-10.2) mg/dL Total Bilirubin 0.4 (0.2-1.3) mg/dL AST 37 H (14-36) U/L ALT 24 (4-34) U/L Alkaline Phosphatase 198 H (38-126) U/L Total Protein 7.0 (6.3-8.2) g/dL Albumin 3.4 L (3.5-5.0) g/dL
[2020-08-02] MEDS: HYDROmorphone 1 MG/ML 1 ML SYRINGE IVP PRN ×2 (16:24→20:45)
--- NOTE | 2020-08-02 21:02 | P.HPIM ---
History of Present Illness H&P Date: 08/02/20 Chief Complaint: Abdominal pain History of presenting complaint: This is a 59-year-old patient of Dr. Bolanos. Chronic stable medical conditions include hypertension, obesity with previous bariatric surgery with a small remnant status post stomach about 30 years ago, , bipolar disorder, hypertension, chronic back pain,. Patient had repeated blood infection with UTI and a chronic Storey catheter for 2 years. underwent partial bladder resection on January 08, 2019 [facility]. urostomy was created. Patient now presenting with 1 week of increasing pain in the epigastric area she described as stabbing pain. Also feels like a tight band across the area. Significant nausea. Not able to eat because of the same. Daughter has an appetite. No fever no chills. Computed tomography scan in the ER was nonspecific.. Patient was here from July 03 through July 12. Admitted with a frozen abdomen. With a small bowel obstruction. Patient underwent lysis of radiation antrostomy between dilated small bowel and transverse colon. Patient states she's had chronically had nausea. Since she left the hospital she's been eating small amounts. Easily gets distended. She has maybe couple of bowel movements a day. Patient is a been having increasing abdominal pain. Her family doctor ordered a CAT scan that showed evidence of ileus and possible small bowel obst ruction. And she was admitted to the ER. Pain is rather significant in abdomen. Review of systems: GEN.: tired, decreased oral intake EYES: None HEENT: None NECK: None RESPIRATORY: None CARDIOVASCULAR: None GASTROINTESTINAL: As above GENITOURINARY: None MUSCULOSKELETAL: Some joint pains LYMPHATICS: None HEMATOLOGICAL: None PSYCHIATRY: Anxious NEUROLOGICAL: None Past medical history to include: Hypertension, obesity with previous bariatric surgery, bipolar disorder, hypertension, chronic back pain, partial bladder resection with the urostomy, pancreatitis, chronic back pain with pain stimulator, enterostomy small bowel to the transverse colon Social history: Lives alone . Patient smoked for close to 20 years and stopped in 1998. 2 packs a day. Recently started smoking again. No alcohol. Family history: Reviewed, noncontributory to presentation Physical examination: VITAL SIGNS: 98.9, 88, 18, 110/78, 100% room air GENERAL: BMI 18.5, laying in bed, tired EYES: Pupils equal. Conjunctiva normal. HEENT: External appearance of nose and ears normal, oral cavity dry mucous memb ranes NECK: JVD not raised; masses not palpable. HEART: First and second heart sounds are normal; no edema. LUNGS: Respiratory rate normal; clear to auscultation. ABDOMEN: Soft, healed midline scar, some localized distention in the left lower quadrant with tenderness no guarding rigidity no guarding or rigidity, liver spleen not palpable, no masses palpable, midline scar is present, urostomy bag- with clear urine PSYCH: AO - times three. Mood and affect anxious NEUROLOGICAL: Cranial nerves grossly intact; no facial asymmetry, power and sensation grossly intact. LYMPHATICS: No lymph nodes palpable in the axilla and neck INVESTIGATIONS, reviewed in the clinical context: Abdominal x-ray: Correlate for ileus. Distal obstructive chain difficult to exclude. Computed tomography scan of the abdomen and pelvis without contrast: Persistent severe bilateral hydronephrosis. Persistent diffuse prominent bowel loops without transition point suggesting ileus. Fecal filled loops WBC 9.6 hemoglobin 10.9 platelets 96 6 potassium 3.6 bicarb 9 BUN 35 creatinine 1.39 Amylase 119 lipase 457 Lab work from July 12: Creatinine 1.45 Assessment and plan: -Acute small bowel obstruction versus ileus: This is a patient who July 12 underwent antrostomy to large bowel. Now presents with progressive increasing abdominal distention nausea vomiting. Patient remained nothing by mouth. Dr. Munoz consulted -Acute metabolic acidosis IV fluids with bicarbonate supplement -Essential hypertension Hold amlodipine. Continue with Lopressor -Bipolar disorder Continue with BuSpar Cymbalta Tegretol -History of Bladder surgery with ileal conduit Patient has a urostomy -Normocytic anemia, likely from anemia of chronic disease Follow H&H -Chronic kidney disease stage III likely nephrosclerosis Follow renal function Plan: We will make the patient nothing by mouth. IV fluids with bicarbonate. M edications to continue. Consult GI and general surgery. DVT prophylaxis. Care was discussed with the patient. Given the complexity and severity of patient's condition expect the patient to be in the hospital at least for 2 overnights Past Medical History Past Medical History: Asthma, Blood Disorder, Chest Pain / Angina, Hearing Disorder / Deafness, Hypertension, Musculoskeletal Disorder, Osteoarthritis (OA), Pneumonia Additional Past Medical History / Comment(s): fluctuating body weight, chronic back pain with pain stimulator, history of iron deficiency,"low rbc's" & anemia requiring blood transfusions, uti, Hx falls & fx to left hip but no sx, dizzy spells, carpal tunnel, BOWEL OBSTRUCTIONS, pt has urostomy., States nausea and vomiting with abd pain-wt loss of 40 # History of Any Multi-Drug Resistant Organisms: None Reported Past Surgical History: Appendectomy, Bariatric Surgery, Bladder Surgery, Breast Surgery, Section, Cholecystectomy, Hysterectomy, Tubal Ligation Additional Past Surgical History / Comment(s): bladder suspension,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, gastric bypass, colon volvulus had exporatory lap w/lysis of adhesions and rt colectomy, urostomy Past Anesthesia/Blood Transfusion Reactions: No Reported Reaction Additional Past Anesthesia/Blood Transfusion Reaction / Comment(s): blood trandfusion- no reaction Past Psychological History: Anxiety, Bipolar, Depression Smoking Status: Current every day smoker Past Alcohol Use History: None Reported Past Drug Use History: None Reported - Past Family History Mother Family Medical History: No Reported History Additional Family Medical History / Comment(s): no history Father Family Medical History: No Reported History Additional Family Medical History / Comment(s): from alcoholism, gout Brother(s) Additional Family Medical History / Comment(s): seizure Medications and Allergies Home Medications Medication Instructions Recorded Confirmed Type DULoxetine HCL [Cymbalta] 60 mg PO BID 03/21/16 08/02/20 History SUMAtriptan SUCCINATE [Imitrex] 100 mg PO DAILY PRN 03/21/16 08/02/20 History carBAMazepine [TEGretol] 400 mg PO BID 03/21/16 08/02/20 History Metoprolol Tartrate 25 mg PO BID 02/02/19 08/02/20 History busPIRone HCL 15 mg PO TID 02/02/19 08/02/20 History ALPRAZolam [Xanax] 1 mg PO QID 04/20/19 08/02/20 History Dicyclomine HCl 20 mg PO TID PRN 04/20/19 08/02/20 History Fluticasone Nasal [place] [Flonase 1 spray EA NOSTRIL DAILY 04/20/19 08/02/20 History Nasal [place]] Albuterol Inhaler [Ventolin Hfa 2 puff INHALATION RT-Q4H PRN 08/04/19 08/02/20 History Inhaler] Butalb/APAP/Caff 50-325-40Mg 1 tab PO Q4H PRN 08/04/19 08/02/20 History [Fioricet 50-325-40] traZODone HCL [Desyrel] 100 mg PO HS 08/04/19 08/02/20 History Ondansetron [Zofran] 4 mg PO Q8HR PRN #20 tab 08/10/19 08/02/20 Rx Pravastatin Sodium [Pravachol] 10 mg PO HS 12/14/19 08/02/20 History Tiotropium 18 Mcg/Puff [Spiriva] 1 puff INHALATION RT-DAILY 12/14/19 08/02/20 History Pantoprazole [Protonix] 40 mg PO BID #60 tab 12/16/19 08/02/20 Rx Promethazine [Phenergan] 25 mg PO Q12H PRN 02/14/20 08/02/20 History Acetaminophen Tab [Tylenol] 650 mg PO Q4H PRN 03/11/20 08/02/20 History Ascorbic Acid [Vitamin C] 1,000 mg PO DAILY 03/11/20 08/02/20 History Glucosam/Mukund-Msm1/C/Steve/Bosw 1 tab PO DAILY 03/11/20 08/02/20 History [Glucosamine-Chondroitin Tablet] Multivitamins, Thera [Multivitamin 1 tab PO DAILY 03/11/20 08/02/20 History (formulary)] Omeprazole [PriLOSEC] 40 mg PO DAILY #14 cap 03/11/20 08/02/20 Rx Cholecalciferol [Vitamin D3 (25 25 mcg PO DAILY 05/30/20 08/02/20 History Mcg = 1000 Iu)] Zinc 50 mg PO DAILY 05/30/20 08/02/20 History Diphenoxylate HCl/Atropine 1 - 2 tab PO QID PRN 06/29/20 08/02/20 History [Lomotil 2.5-0.025 mg Tablet] amLODIPine [Norvasc] 10 mg PO DAILY 06/29/20 08/02/20 History lisinopriL 40 mg PO DAILY 06/29/20 08/02/20 History HYDROcodone/APAP 10-325MG [[place] 1 tab PO Q6HR PRN 3 Days #12 tab 07/12/20 08/02/20 Rx 10-325] Potassium Chloride ER [K-Dur 20] 40 meq PO DAILY #30 tab 07/12/20 08/02/20 Rx Allergies Allergy/AdvReac Type Severity Reaction Status Date / Time No Known Allergies Allergy Verified 08/02/20 13:01 Physical Exam Vitals: Vital Signs Temp Pulse Resp BP Pulse Ox 08/02/20 19:26 98.9 F 88 18 110/78 100 08/02/20 19:00 88 18 110/78 100 08/02/20 18:00 82 18 105/80 100 08/02/20 17:00 84 18 103/78 100 08/02/20 16:00 80 18 117/74 100 08/02/20 15:00 88 18 125/94 100 08/02/20 14:00 87 16 98 08/02/20 13:29 90 16 110/85 98 08/02/20 12:24 98.9 F 90 20 110/81 100 Intake and Output 08/02/20 08/02/20 08/02/20 06:59 14:59 22:59 Other: Weight 44.452 kg Results CBC & Chem 7: 08/02/20 13:03 08/02/20 13:03 Labs: Abnormal Lab Results - Last 24 Hours (Table) 08/02/20 08/02/20 08/02/20 Range/Units 13:03 13:03 13:03 Hgb 10.9 L (11.4-16.0) gm/dL RDW 19.6 H (11.5-15.5) % Plt Count 966 H (150-450) k/uL Sodium 131 L (137-145) mmol/L Chloride 111 H (98-107) mmol/L Carbon Dioxide 9 L* (22-30) mmol/L BUN 35 H (7-17) mg/dL Creatinine 1.39 H (0.52-1.04) mg/dL Plasma Lactic Acid Jaswinder (0.7-2.0) mmol/L AST 37 H (14-36) U/L Alkaline Phosphatase 198 H (38-126) U/L Albumin 3.4 L (3.5-5.0) g/dL Amylase 119 H (30-110) U/L Lipase 457 H (23-300) U/L Urine Protein 1+ H (Negative) Urine Blood Trace H (Negative) Ur Leukocyte Esterase Moderate H (Negative) Urine WBC 7 H (0-5) /hpf Urine Bacteria Rare H (None) /hpf Urine Mucus Rare H (None) /hpf 08/02/20 Range/Units 13:03 Hgb (11.4-16.0) gm/dL RDW (11.5-15.5) % Plt Count (150-450) k/uL Sodium (137-145) mmol/L Chloride (98-107) mmol/L Carbon Dioxide (22-30) mmol/L BUN (7-17) mg/dL Creatinine (0.52-1.04) mg/dL Plasma Lactic Acid Jaswinder 0.5 L (0.7-2.0) mmol/L AST (14-36) U/L Alkaline Phosphatase (38-126) U/L Albumin (3.5-5.0) g/dL Amylase (30-110) U/L Lipase (23-300) U/L Urine Protein (Negative) Urine Blood (Negative) Ur Leukocyte Esterase (Negative) Urine WBC (0-5) /hpf Urine Bacteria (None) /hpf Urine Mucus (None) /hpf
[2020-08-02] MEDS: busPIRone HCl 5 MG TAB PO SCH (22:22)
[2020-08-02] MEDS: carBAMazepine 200 MG TAB PO SCH (22:22)
[2020-08-02] MEDS: DULoxetine HCL 60 MG CAPSULE.DR PO SCH (22:22)
[2020-08-02] MEDS: METOPROLOL TARTRATE 25 MG TAB PO SCH (22:22)
[2020-08-02] MEDS: traZODone HCL 100 MG TAB PO SCH (22:23)
[2020-08-02] MEDS: ALPRAZolam 1 MG TAB PO SCH (22:23)
[2020-08-02] MEDS: DEXTROSE 5%-0.45% NACL 1,000 ML with SODIUM BICARB (1 MEQ/ML) 50 ML IV SCH ×2 (23:45)
[2020-08-03] MEDS: HYDROmorphone 1 MG/ML 1 ML SYRINGE IVP PRN ×6 (04:41→23:39)
[2020-08-03] MEDS: ACETAMINOPHEN TAB 325 MG TAB PO PRN (05:00)
[2020-08-03 06:46] LABS: African American GFR (CKD) 50 (>60 ml/min/1.73 sqM); Anion Gap 8 mmol/L; Blood Urea Nitrogen 37 mg/dL (7-17); Calcium 8.3 mg/dL (8.4-10.2); Carbon Dioxide 10 mmol/L (22-30); Chloride 115 mmol/L (98-107); Glucose 108 mg/dL (74-99); Non-African American GFR(CKD) 43 (>60 ml/min/1.73 sqM); Sodium 133 mmol/L (137-145)
--- NOTE | 2020-08-03 07:28 | US ---
EXAMINATION TYPE: US kidneys/renal and bladder DATE OF EXAM: 08/03/2020 COMPARISON: CT yesterday CLINICAL HISTORY: Assess for CkD. Exam done portable. EXAM MEASUREMENTS: Right Kidney: 10.3 x 4.0 x 4.8 cm Left Kidney: 9.1 x 3.9 x 4.5 cm Right Kidney: hydronephrosis Left Kidney: hydronephrosis Bladder: surgically absent Confirmation of severe bilateral hydronephrosis as suspected on CT. IMPRESSION: Severe bilateral hydronephrosis redemonstrated.
[2020-08-03] MEDS: PANTOPRAZOLE 40 MG/10 ML VIAL IV SCH (07:37)
[2020-08-03] MEDS: busPIRone HCl 5 MG TAB PO SCH ×3 (07:37→21:05)
[2020-08-03] MEDS: DULoxetine HCL 60 MG CAPSULE.DR PO SCH ×2 (07:37→21:05)
[2020-08-03] MEDS: ALPRAZolam 1 MG TAB PO SCH ×4 (07:37→21:05)
[2020-08-03] MEDS: carBAMazepine 200 MG TAB PO SCH ×2 (07:38→21:05)
[2020-08-03] MEDS: METOPROLOL TARTRATE 25 MG TAB PO SCH (07:38)
[2020-08-03] MEDS: ONDANSETRON 4 MG/2 ML VIAL IVP PRN ×2 (07:50→21:09)
[2020-08-03] MEDS: DEXTROSE 5%-0.45% NACL 1,000 ML with SODIUM BICARB (1 MEQ/ML) 50 ML IV SCH ×6 (07:56→21:13)
[2020-08-03] MEDS ORDERED: POTASSIUM CHLORIDE ER 20 MEQ TAB.ER PO STA (12:44)
--- NOTE | 2020-08-03 12:47 | P.PN ---
Subjective Progress Note Date: 08/03/20 CHIEF COMPLAINT: Abdominal pain HISTORY OF PRESENT ILLNESS: Patient is being followed for a partial bowel obstruction. She is passing a small amount of gas. No bowel movement. Still having abdominal pain and abdominal distention about the same as yesterday. Denies any vomiting. She has had some dry heaves and nausea which is not new for the patient. She is currently nothing by mouth. Afebrile. WBC 9.6 potassium 3.0 sodium 133 CO2 10 creatinine 1.33 urology has been consulted regarding bilateral hydronephrosis PHYSICAL EXAM: VITAL SIGNS: Reviewed. GENERAL: Well-developed in no acute distress. HEENT: No sclera icterus. Extraocular movements grossly intact. Moist buccal mucosa. Head is atraumatic, normocephalic. ABDOMEN: Distended and tender with palpation urostomy on the right of abdomen NEUROLOGIC: Alert and oriented. Cranial nerves II through XII grossly intact. ASSESSMENT: 1. Partial bowel obstruction 2. History of frozen abdomen status post exploratory laparotomy, lysis of adhesions and enteroenterostomy between dilated small bowel and transverse colon on 07/05/2020 3. History of bowel obstructions 4. Elevated lipase and amylase and prior history of pancreatitis PLAN: -No surgical intervention planned. Recommend conservative management -Advance diet to sips of clears -Replace potassium for potassium level 3.0 -Continue IV fluids -Continue pain medication as needed -Encourage patient to ambulate Physician Shaper And Presser note has been reviewed by physician. Signing provider agrees with the documented findings, assessment, and plan of care. Objective - Vital Signs Vital signs: Vital Signs Temp 97.6 F 08/03/20 12:18 Pulse 67 08/03/20 12:18 Resp 17 08/03/20 12:18 BP 102/63 08/03/20 12:18 Pulse Ox 100 08/03/20 12:18 Intake & Output 08/02/20 08/03/20 08/03/20 18:59 06:59 18:59 Intake Total 985 Output Total 200 Balance 785 Weight 44.452 kg 44.452 kg Intake: Intake, IV Titration 985 Amount Dextrose 5%-0.45% NaCl 1, 725 000 ml @ 125 mls/hr IV . Q8H24M [facility] with Sodium Bicarb (1 Meq/ml) 50 ml Rx#:[id number] Sodium Chloride 0.9% 1, 260 000 ml @ 130 mls/hr IV . Q7H42M STA Rx#:[id number] Oral 0 Output: Urine 200 Other: Voiding Method Ileal Conduit (Right) Ileal Conduit (Right) - Labs CBC & Chem 7: 08/02/20 13:03 08/03/20 06:15 Labs: Abnormal Lab Results - Last 24 Hours (Table) 08/02/20 08/02/20 08/02/20 Range/Units 13:03 13:03 13:03 Hgb 10.9 L (11.4-16.0) gm/dL RDW 19.6 H (11.5-15.5) % Plt Count 966 H (150-450) k/uL Sodium 131 L (137-145) mmol/L Potassium (3.5-5.1) mmol/L Chloride 111 H (98-107) mmol/L Carbon Dioxide 9 L* (22-30) mmol/L BUN 35 H (7-17) mg/dL Creatinine 1.39 H (0.52-1.04) mg/dL Glucose (74-99) mg/dL Plasma Lactic Acid Jaswinder (0.7-2.0) mmol/L Calcium (8.4-10.2) mg/dL AST 37 H (14-36) U/L Alkaline Phosphatase 198 H (38-126) U/L Albumin 3.4 L (3.5-5.0) g/dL Amylase 119 H (30-110) U/L Lipase 457 H (23-300) U/L Urine Protein 1+ H (Negative) Urine Blood Trace H (Negative) Ur Leukocyte Esterase Moderate H (Negative) Urine WBC 7 H (0-5) /hpf Urine Bacteria Rare H (None) /hpf Urine Mucus Rare H (None) /hpf 08/02/20 08/03/20 Range/Units 13:03 06:15 Hgb (11.4-16.0) gm/dL RDW (11.5-15.5) % Plt Count (150-450) k/uL Sodium 133 L (137-145) mmol/L Potassium 3.0 L (3.5-5.1) mmol/L Chloride 115 H (98-107) mmol/L Carbon Dioxide 10 L (22-30) mmol/L BUN 37 H (7-17) mg/dL Creatinine 1.33 H (0.52-1.04) mg/dL Glucose 108 H (74-99) mg/dL Plasma Lactic Acid Jaswinder 0.5 L (0.7-2.0) mmol/L Calcium 8.3 L (8.4-10.2) mg/dL AST (14-36) U/L Alkaline Phosphatase (38-126) U/L Albumin (3.5-5.0) g/dL Amylase (30-110) U/L Lipase (23-300) U/L Urine Protein (Negative) Urine Blood (Negative) Ur Leukocyte Esterase (Negative) Urine WBC (0-5) /hpf Urine Bacteria (None) /hpf Urine Mucus (None) /hpf
[2020-08-03 14:56] VITALS: BMI 18.5
--- NOTE | 2020-08-03 19:22 | P.PN ---
Progress Note - Text Progress Note Date: 08/03/20 Chief Complaint: Abdominal pain History of presenting complaint: This is a 59-year-old patient of Dr. Bolanos. Chronic stable medical conditions include hypertension, obesity with previous bariatric surgery with a small remnant status post stomach about 30 years ago, , bipolar disorder, hypertension, chronic back pain,. Patient had repeated blood infection with UTI and a chronic Storey catheter for 2 years. underwent partial bladder resection on January 08, 2019 [facility]. urostomy was created. Patient now presenting with 1 week of increasing pain in the epigastric area she described as stabbing pain. Also feels like a tight band across the area. Sig nificant nausea. Not able to eat because of the same. Daughter has an appetite. No fever no chills. Computed tomography scan in the ER was nonspecific.. Patient was here from July 03 through July 12. Admitted with a frozen abdomen. With a small bowel obstruction. Patient underwent lysis of radiation antrostomy between dilated small bowel and transverse colon. Patient states she's had chronically had nausea. Since she left the hospital she's been eating small amounts. Easily gets distended. She has maybe couple of bowel movements a day. Patient is a been having increasing abdominal pain. Her family doctor ordered a CAT scan that showed evidence of ileus and possible small bowel obstruction. And she was admitted to the ER. Pain is rather significant in abdomen. Today: Laying in bed. Abdominal pain. Some distention. Somewhat disturbed. Told by surgeon that no surgical intervention can be done. Started on clear liquids Review of systems: Was done for constitutional, cardiovascular, GI, pulmonary. relevant finding as above Active Medications Acetaminophen (Acetaminophen Tab 325 Mg Tab) 650 mg PO Q6HR PRN PRN Reason: Fever and/ or Pain Last Admin: 08/03/20 05:00 Dose: 650 mg Documented by: Albuterol Sulfate (Albuterol Hfa Inhaler) 2 puff INHALATION RT-Q4H PRN PRN Reason: Shortness Of Breath Alprazolam (Alprazolam 1 Mg Tab) 1 mg PO QID [facility] Last Admin: 08/03/20 18:06 Dose: 1 mg Documented by: Buspirone HCl (Buspirone Hcl 5 Mg Tab) 15 mg PO TID [facility] Last Admin: 08/03/20 15:40 Dose: 15 mg Documented by: Carbamazepine (Carbamazepine 200 Mg Tab) 400 mg PO BID [facility] Last Admin: 08/03/20 07:38 Dose: 400 mg Documented by: Duloxetine HCl (Duloxetine Hcl 60 Mg Capsule.Dr) 60 mg PO BID [facility] Last Admin: 08/03/20 07:37 Dose: 60 mg Documented by: Hydromorphone HCl (Hydromorphone 1 Mg/Ml 1 Ml Syringe) 1 mg IVP Q3HR PRN PRN Reason: Severe Pain Last Admin: 08/03/20 15:40 Dose: 1 mg Documented by: Sodium Bicarbonate 50 ml/ (Dextrose/Sodium Chloride) 1,050 mls @ 125 mls/hr IV .Q8H24M [facility] Last Admin: 08/03/20 07:56 Dose: 125 mls/hr Documented by: Metoprolol Tartrate (Metoprolol Tartrate 25 Mg Tab) 25 mg PO BID [facility] Last Admin: 08/03/20 07:38 Dose: 25 mg Documented by: Naloxone HCl (Naloxone 0.4 Mg/Ml 1 Ml Vial) 0.2 mg IV Q2M PRN PRN Reason: Opioid Reversal Ondansetron HCl (Ondansetron 4 Mg/2 Ml Vial) 4 mg IVP Q8HR PRN PRN Reason: Nausea And Vomiting Last Admin: 08/03/20 07:50 Dose: 4 mg Documented by: Pantoprazole Sodium (Pantoprazole 40 Mg/10 Ml Vial) 40 mg IV DAILY [facility] Last Admin: 08/03/20 07:37 Dose: 40 mg Documented by: Trazodone HCl (Trazodone Hcl 100 Mg Tab) 100 mg PO HS [facility] Last Admin: 08/02/20 22:23 Dose: 100 mg Documented by: Past medical history to include: Hypertension, obesity with previous bariatric surgery, bipolar disorder, hypertension, chronic back pain, partial bladder resection with the urostomy, pancreatitis, chronic back pain with pain stimulator, enterostomy small bowel to the transverse colon Social history: Lives alone . Patient smoked for close to 20 years and stopped in 1998. 2 packs a day. Recently started smoking again. No alcohol. Family history: Reviewed, noncontributory to presentation Physical examination: VITAL SIGNS: 97.6, 67, 17, 1 or 2 x 63, 100% on room air GENERAL: , laying in bed, tired EYES: Pupils equal. Conjunctiva normal. HEENT: External appearance of nose and ears normal, oral cavity dry mucous membranes NECK: JVD not raised; masses not palpable. HEART: First and second heart sounds are normal; no edema. LUNGS: Respiratory rate normal; clear to auscultation. ABDOMEN: Soft, healed midline scar, some localized distention in the left lower quadrant with tenderness no guarding rigidity no guarding or rigidity, liver spleen not palpable, no masses palpable, midline scar is present, urostomy bag- with clear urine PSYCH: AO - times three. Mood and affect anxious INVESTIGATIONS, reviewed in the clinical context: August 03: Sodium 133 potassium 3 bicarbonate 10 creatinine 1.33 Abdominal x-ray: Correlate for ileus. Distal obstructive chain difficult to exclude. Computed tomography scan of the abdomen and pelvis without contrast: Persistent severe bilateral hydronephrosis. Persistent diffuse prominent bowel loops without transition point suggesting ileus. Fecal filled loops WBC 9.6 hemoglobin 10.9 platelets 96 6 potassium 3.6 bicarb 9 BUN 35 creatinine 1.39 Amylase 119 lipase 457 Lab work from July 12: Creatinine 1.45 Assessment and plan: -Acute small bowel obstruction versus ileus: This is a patient who July 12 underwent enterostomy to large bowel. Now presents with progressive increasing abdominal distention nausea vomiting.-Slow to respond Nothing by mouth. Dr. Munoz -patient is not a surgical candidate. Started on clear liquids -Acute metabolic acidosis -slow to respond IV fluids with bicarbonate supplement to continue -Essential hypertension Hold amlodipine. Continue with Lopressor -Bipolar disorder Continue with BuSpar Cymbalta Tegretol -History of Bladder surgery with ileal conduit Patient has a urostomy -Normocytic anemia, likely from anemia of chronic disease Follow H&H -Chronic kidney disease stage III likely nephrosclerosis Follow renal function Discussed with patient. Discussed with Dr. Munoz. Continue with IV fluids with bicarb. Repeat labs
[2020-08-03] MEDS: ALBUTEROL HFA INHALER INHALATION PRN (19:38)
[2020-08-03] MEDS: traZODone HCL 100 MG TAB PO SCH (21:05)
[2020-08-03] MEDS: METOPROLOL TARTRATE 12.5 MG TAB PO SCH (21:05)
[2020-08-04] MEDS: HYDROmorphone 1 MG/ML 1 ML SYRINGE IVP PRN ×5 (02:54→20:49)
[2020-08-04] MEDS: DEXTROSE 5%-0.45% NACL 1,000 ML with SODIUM BICARB (1 MEQ/ML) 50 ML IV SCH ×4 (05:20→17:45)
[2020-08-04] MEDS: ACETAMINOPHEN TAB 325 MG TAB PO PRN ×2 (05:23→20:41)
[2020-08-04 06:21] LABS: Anisocytosis Slight; Basophils # (A) 0.1 k/uL (0-0.2); Basophils % (A) 1 %; Eosinophils # (A) 0.4 k/uL (0-0.7); Eosinophils % (A) 5 %; HCT 31.1 % (34.0-46.0); HGB 9.7 gm/dL (11.4-16.0); Hypochromasia Marked; Lymphocytes # (A) 0.8 k/uL (1.0-4.8); Lymphocytes % (A) 11 %; MCH 28.1 pg (25.0-35.0); MCHC 31.2 g/dL (31.0-37.0); MCV 90.1 fL (80.0-100.0); Mean Platelet Volume 6.4; Monocytes # (A) 0.4 k/uL (0-1.0); Monocytes % (A) 5 %; Neutrophils # (A) 5.9 k/uL (1.3-7.7); Neutrophils % (A) 78 %; Platelet Count 726 k/uL (150-450); Poikilocytosis Moderate; RBC 3.45 m/uL (3.80-5.40); RDW 19.5 % (11.5-15.5); WBC 7.5 k/uL (3.8-10.6)
[2020-08-04 06:29] LABS: African American GFR (CKD) 49 (>60 ml/min/1.73 sqM); Anion Gap 7 mmol/L; Blood Urea Nitrogen 30 mg/dL (7-17); Calcium 8.4 mg/dL (8.4-10.2); Carbon Dioxide 14 mmol/L (22-30); Chloride 110 mmol/L (98-107); Glucose 106 mg/dL (74-99); Lipase 162 U/L (23-300); Non-African American GFR(CKD) 43 (>60 ml/min/1.73 sqM); Potassium 3.2 mmol/L (3.5-5.1); Sodium 131 mmol/L (137-145)
[2020-08-04] MEDS: DULoxetine HCL 60 MG CAPSULE.DR PO SCH ×2 (08:03→20:33)
[2020-08-04] MEDS: ALPRAZolam 1 MG TAB PO SCH ×4 (08:03→20:41)
[2020-08-04] MEDS: busPIRone HCl 5 MG TAB PO SCH ×3 (08:03→20:33)
[2020-08-04] MEDS: ONDANSETRON 4 MG/2 ML VIAL IVP PRN ×2 (08:03→17:45)
[2020-08-04] MEDS ORDERED: POTASSIUM CHLORIDE ER 20 MEQ TAB.ER PO STA (08:07)
[2020-08-04] MEDS: PANTOPRAZOLE 40 MG/10 ML VIAL IV SCH (08:08)
[2020-08-04] MEDS: METOPROLOL TARTRATE 12.5 MG TAB PO SCH ×2 (08:09→20:32)
[2020-08-04] MEDS: carBAMazepine 200 MG TAB PO SCH ×2 (08:23→20:40)
[2020-08-04] MEDS: ALBUTEROL HFA INHALER INHALATION PRN ×3 (11:23→19:47)
--- NOTE | 2020-08-04 13:04 | P.PN ---
Subjective Progress Note Date: 08/04/20 CHIEF COMPLAINT: Abdominal pain HISTORY OF PRESENT ILLNESS: Patient is being followed for a partial bowel obstruction. Patient did have a small bowel movement and has passed small amount of gas. She does have nausea. But no vomiting. She's currently on sips of clears. She is still having abdominal pain but it is better than on admission. Abdomen is slightly less distended. Afebrile. WBC 7.5 hemoglobin 9.7 sodium 131 potassium is 3.2 CO2 14 creatinine 1.34 magnesium 1.9 lipase 162 PHYSICAL EXAM: VITAL SIGNS: Reviewed. GENERAL: Well-developed in no acute distress. HEENT: No sclera icterus. Extraocular movements grossly intact. Moist buccal mucosa. Head is atraumatic, normocephalic. ABDOMEN: Slight decrease in abdominal distention and diffuse tenderness with palpation. urostomy on the right of abdomen NEUROLOGIC: Alert and oriented. Cranial nerves II through XII grossly intact. ASSESSMENT: 1. Partial bowel obstruction 2. History of frozen abdomen status post exploratory laparotomy, lysis of adhesions and enteroenterostomy between dilated small bowel and transverse colon on 07/05/2020 3. History of bowel obstructions 4. Elevated lipase and amylase and prior history of pancreatitis. Repeat lipase normalized PLAN: -No surgical intervention planned. Recommend conservative management -Continue sips of clears -Replace potassium for potassium level 3.2 -Continue IV fluids -Continue pain medication as needed -Encourage patient to ambulate -She had prophylaxis Protonix and DVT prophylaxis subcu heparin Physician Stitcher T[employer] Controlled Machine note has been reviewed by physician. Signing provider agrees with the documented findings, assessment, and plan of care. Objective - Vital Signs Vital signs: Vital Signs Temp 97.7 F 08/04/20 05:00 Pulse 73 08/04/20 05:00 Resp 20 08/04/20 05:00 BP 95/62 08/04/20 05:00 Pulse Ox 99 08/04/20 05:00 Intake & Output 08/03/20 08/04/20 08/04/20 18:59 06:59 18:59 Intake Total 1500 1525 Output Total 6919 378 9813 Balance -100 625 -1150 Weight 44.452 kg Intake: Intake, IV Titration 1500 1225 Amount Dextrose 5%-0.45% NaCl 1, 1500 1225 000 ml @ 125 mls/hr IV . Q8H24M [facility] with Sodium Bicarb (1 Meq/ml) 50 ml Rx#:[id number] Oral 300 Output: Urine 6439 [id number] Other: Voiding Method Ileal Conduit (Right) Ileal Conduit (Right) Ileal Conduit (Right) # Bowel Movements 1 - Labs CBC & Chem 7: 08/04/20 05:28 08/04/20 05:28 Labs: Abnormal Lab Results - Last 24 Hours (Table) 08/04/20 08/04/20 Range/Units 05:28 05:28 RBC 3.45 L (3.80-5.40) m/uL Hgb 9.7 L (11.4-16.0) gm/dL Hct 31.1 L (34.0-46.0) % RDW 19.5 H (11.5-15.5) % Plt Count 726 H (150-450) k/uL Lymphocytes # 0.8 L (1.0-4.8) k/uL Sodium 131 L (137-145) mmol/L Potassium 3.2 L (3.5-5.1) mmol/L Chloride 110 H (98-107) mmol/L Carbon Dioxide 14 L (22-30) mmol/L BUN 30 H (7-17) mg/dL Creatinine 1.34 H (0.52-1.04) mg/dL Glucose 106 H (74-99) mg/dL Microbiology - Last 24 Hours (Table) 08/02/20 13:15 Blood Culture - Preliminary Blood No Growth after 24 hours 08/02/20 13:00 Blood Culture - Preliminary Blood No Growth after 24 hours
[2020-08-04] MEDS: HEPARIN SODIUM,PORCINE/PF 5,000 UNIT/0.5 ML SYRINGE SQ SCH ×2 (13:11→20:40)
--- NOTE | 2020-08-04 15:07 | P.PN ---
Progress Note - Text Progress Note Date: 08/04/20 Chief Complaint: Abdominal pain History of presenting complaint: This is a 59-year-old patient of Dr. Bolanos. Chronic stable medical conditions include hypertension, obesity with previous bariatric surgery with a small remnant status post stomach about 30 years ago, , bipolar disorder, hypertension, chronic back pain,. Patient had repeated blood infection with UTI and a chronic Storey catheter for 2 years. underwent partial bladder resection on January 08, 2019 [facility]. urostomy was created. Patient now presenting with 1 week of increasing pain in the epigastric area she described as stabbing pain. Also feels like a tight band across the area. Sig nificant nausea. Not able to eat because of the same. Daughter has an appetite. No fever no chills. Computed tomography scan in the ER was nonspecific.. Patient was here from July 03 through July 12. Admitted with a frozen abdomen. With a small bowel obstruction. Patient underwent lysis of radiation antrostomy between dilated small bowel and transverse colon. Patient states she's had chronically had nausea. Since she left the hospital she's been eating small amounts. Easily gets distended. She has maybe couple of bowel movements a day. Patient is a been having increasing abdominal pain. Her family doctor ordered a CAT scan that showed evidence of ileus and possible small bowel obstruction. And she was admitted to the ER. Pain is rather significant in abdomen. Seen with Dr. Munoz. Patient not a candidate for any surgical intervention. Today: On clear liquids. Did positive flatus. Abdominal pain present. No nausea vomiting. Review of systems: Was done for constitutional, cardiovascular, GI, pulmonary. relevant finding as above Active Medications Acetaminophen (Acetaminophen Tab 325 Mg Tab) 650 mg PO Q6HR PRN PRN Reason: Fever and/ or Pain Last Admin: 08/04/20 05:23 Dose: 650 mg Documented by: Albuterol Sulfate (Albuterol Hfa Inhaler) 2 puff INHALATION RT-Q4H PRN PRN Reason: Shortness Of Breath Last Admin: 08/04/20 11:23 Dose: 2 puff Documented by: Alprazolam (Alprazolam 1 Mg Tab) 1 mg PO QID [facility] Last Admin: 08/04/20 13:11 Dose: 1 mg Documented by: Buspirone HCl (Buspirone Hcl 5 Mg Tab) 15 mg PO TID [facility] Last Admin: 08/04/20 08:03 Dose: 15 mg Documented by: Carbamazepine (Carbamazepine 200 Mg Tab) 400 mg PO BID [facility] Last Admin: 08/04/20 08:23 Dose: 400 mg Documented by: Duloxetine HCl (Duloxetine Hcl 60 Mg Capsule.Dr) 60 mg PO BID [facility] Last Admin: 08/04/20 08:03 Dose: 60 mg Documented by: Heparin Sodium (Porcine) (Heparin Sodium,Porcine/Pf 5,000 Unit/0.5 Ml Syringe) 5,000 unit SQ Q12HR [facility] Last Admin: 08/04/20 13:11 Dose: 5,000 unit Documented by: Hydromorphone HCl (Hydromorphone 1 Mg/Ml 1 Ml Syringe) 1 mg IVP Q3HR PRN PRN Reason: Severe Pain Last Admin: 08/04/20 11:08 Dose: 1 mg Documented by: Sodium Bicarbonate 50 ml/ (Dextrose/Sodium Chloride) 1,050 mls @ 125 mls/hr IV .Q8H24M [facility] Last Admin: 08/04/20 05:20 Dose: 125 mls/hr Documented by: Metoprolol Tartrate (Metoprolol Tartrate 12.5 Mg Tab) 12.5 mg PO BID [facility] Last Admin: 08/04/20 08:09 Dose: 12.5 mg Documented by: Naloxone HCl (Naloxone 0.4 Mg/Ml 1 Ml Vial) 0.2 mg IV Q2M PRN PRN Reason: Opioid Reversal Ondansetron HCl (Ondansetron 4 Mg/2 Ml Vial) 4 mg IVP Q8HR PRN PRN Reason: Nausea And Vomiting Last Admin: 08/04/20 08:03 Dose: 4 mg Documented by: Pantoprazole Sodium (Pantoprazole 40 Mg/10 Ml Vial) 40 mg IV DAILY [facility] Last Admin: 08/04/20 08:08 Dose: 40 mg Documented by: Trazodone HCl (Trazodone Hcl 100 Mg Tab) 100 mg PO HS [facility] Last Admin: 08/03/20 21:05 Dose: 100 mg Documented by: Past medical history to include: Hypertension, obesity with previous bariatric surgery, bipolar disorder, hypertension, chronic back pain, partial bladder resection with the urostomy, pancreatitis, chronic back pain with pain stimulator, enterostomy small bowel to the transverse colon Social history: Lives alone . Patient smoked for close to 20 years and stopped in 1998. 2 packs a day. Recently started smoking again. No alcohol. Family history: Reviewed, noncontributory to presentation Physical examination: VITAL SIGNS: 97.7, 73, 20, 95/62, 99% room air GENERAL: , laying in bed, tired EYES: Pupils equal. Conjunctiva normal. HEENT: External appearance of nose and ears normal, oral cavity dry mucous membranes NECK: JVD not raised; masses not palpable. HEART: First and second heart sounds are normal; no edema. LUNGS: Respiratory rate normal; clear to auscultation. ABDOMEN: Soft, healed midline scar, some localized distention in the left lower quadrant with tenderness no guarding rigidity no guarding or rigidity, liver spleen not palpable, no masses palpable, midline scar is present, urostomy bag- with clear urine PSYCH: AO - times three. Mood and affect anxious INVESTIGATIONS, reviewed in the clinical context: August 04: Sodium 131 potassium 3.2 creatinine 1.34 bicarbonate 14 hemoglobin 9.7 platelets 726 August 03: Sodium 133 potassium 3 bicarbonate 10 creatinine 1.33 Abdominal x-ray: Correlate for ileus. Distal obstructive chain difficult to exclude. Computed tomography scan of the abdomen and pelvis without contrast: Persistent severe bilateral hydronephrosis. Persistent diffuse prominent bowel loops without transition point suggesting ileus. Fecal filled loops WBC 9.6 hemoglobin 10.9 platelets 96 6 potassium 3.6 bicarb 9 BUN 35 creatinine 1.39 Amylase 119 lipase 457 Lab work from July 12: Creatinine 1.45 Assessment and plan: -Acute small bowel obstruction versus ileus: This is a patient who July 12 underwent enterostomy to large bowel. Now presents with progressive increasing abdominal distention nausea vomiting.-Slow to respond Nothing by mouth. Dr. Munoz -patient is not a surgical candidate. Started on clear liquids -Acute metabolic acidosis -slow to respond IV fluids with bicarbonate supplement to continue -Essential hypertension Hold amlodipine. Continue with Lopressor -Bipolar disorder Continue with BuSpar Cymbalta Tegretol -History of Bladder surgery with ileal conduit Patient has a urostomy -Normocytic anemia, likely from anemia of chronic disease Follow H&H -Chronic kidney disease stage III likely nephrosclerosis Follow renal function -Hypokalemia Replace potassium Discussed with patient. Discussed with Dr. Munoz. Continue with IV fluids with bicarb. Repeat labs
--- NOTE | 2020-08-04 15:35 | P.GSCN ---
History of Present Illness Consult date: 08/04/20 Reason for Consult: Bilateral hydronephrosis Requesting physician: Maurilio Zhang History of present illness: The patient is a 59-year-old white female admitted with epigastric abdominal pain and nausea. She underwent a mesh sling in the past and ultimately developed a small capacity bladder with inability to void and recurrent UTIs. This was managed with a chronic indwelling catheter, but she ultimately underwent a cystectomy with ileal conduit urinary diversion in December 2018. She was hospitalized last month and a CT scan showed bilateral hydroureteronephrosis, which is new as a CT scan in November 2019 showed no evidence of hydronephrosis. During her hospitalization last month, Dr. Calderon spoke with Dr. lR Zelaya, her surgeon at [facility], who recommended that she undergo a loopogram and follow-up with him. Review of Systems - Gastrointestinal Reports abdominal pain, Reports nausea - Genitourinary Genitourinary: Reports flank pain, Denies hematuria Past Medical History Past Medical History: Asthma, Blood Disorder, Chest Pain / Angina, Hearing Disorder / Deafness, Hypertension, Musculoskeletal Disorder, Osteoarthritis (OA), Pneumonia Additional Past Medical History / Comment(s): fluctuating body weight, chronic back pain with pain stimulator that does not work, history of iron deficiency,"low rbc's" & anemia requiring blood transfusions, uti, Hx falls & fx to left hip but no sx, dizzy spells, carpal tunnel, BOWEL OBSTRUCTIONS, pt has urostomy., States nausea and vomiting with abd pain-, migraines, anxiety and depression pancrea duct issues been scoped for this History of Any Multi-Drug Resistant Organisms: None Reported Past Surgical History: Appendectomy, Bariatric Surgery, Bladder Surgery, Breast Surgery, Section, Cholecystectomy, Hysterectomy, Tubal Ligation Additional Past Surgical History / Comment(s): bladder suspension,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 Smoking Status: Former smoker Past Alcohol Use History: None Reported Additional Past Alcohol Use History / Comment(s): stopped smoking since surgery Past Drug Use History: None Reported - Past Family History Mother Family Medical History: No Reported History Additional Family Medical History / Comment(s): no history Father Family Medical History: No Reported History Additional Family Medical History / Comment(s): from alcoholism, gout Brother(s) Additional Family Medical History / Comment(s): seizure Medications and Allergies Home Medications Medication Instructions Recorded Confirmed Type DULoxetine HCL [Cymbalta] 60 mg PO BID 03/21/16 08/02/20 History SUMAtriptan SUCCINATE [Imitrex] 100 mg PO DAILY PRN 03/21/16 08/02/20 History carBAMazepine [TEGretol] 400 mg PO BID 03/21/16 08/02/20 History Metoprolol Tartrate 25 mg PO BID 02/02/19 08/02/20 History busPIRone HCL 15 mg PO TID 02/02/19 08/02/20 History ALPRAZolam [Xanax] 1 mg PO QID 04/20/19 08/02/20 History Dicyclomine HCl 20 mg PO TID PRN 04/20/19 08/02/20 History Fluticasone Nasal [place] [Flonase 1 spray EA NOSTRIL DAILY 04/20/19 08/02/20 History Nasal [place]] Albuterol Inhaler [Ventolin Hfa 2 puff INHALATION RT-Q4H PRN 08/04/19 08/02/20 History Inhaler] Butalb/APAP/Caff 50-325-40Mg 1 tab PO Q4H PRN 08/04/19 08/02/20 History [Fioricet 50-325-40] traZODone HCL [Desyrel] 100 mg PO HS 08/04/19 08/02/20 History Ondansetron [Zofran] 4 mg PO Q8HR PRN #20 tab 08/10/19 08/02/20 Rx Pravastatin Sodium [Pravachol] 10 mg PO HS 12/14/19 08/02/20 History Tiotropium 18 Mcg/Puff [Spiriva] 1 puff INHALATION RT-DAILY 12/14/19 08/02/20 History Pantoprazole [Protonix] 40 mg PO BID #60 tab 12/16/19 08/02/20 Rx Promethazine [Phenergan] 25 mg PO Q12H PRN 02/14/20 08/02/20 History Acetaminophen Tab [Tylenol] 650 mg PO Q4H PRN 03/11/20 08/02/20 History Ascorbic Acid [Vitamin C] 1,000 mg PO DAILY 03/11/20 08/02/20 History Glucosam/Mukund-Msm1/C/Steve/Bosw 1 tab PO DAILY 03/11/20 08/02/20 History [Glucosamine-Chondroitin Tablet] Multivitamins, Thera [Multivitamin 1 tab PO DAILY 03/11/20 08/02/20 History (formulary)] Omeprazole [PriLOSEC] 40 mg PO DAILY #14 cap 03/11/20 08/02/20 Rx Cholecalciferol [Vitamin D3 (25 25 mcg PO DAILY 05/30/20 08/02/20 History Mcg = 1000 Iu)] Zinc 50 mg PO DAILY 05/30/20 08/02/20 History Diphenoxylate HCl/Atropine 1 - 2 tab PO QID PRN 06/29/20 08/02/20 History [Lomotil 2.5-0.025 mg Tablet] amLODIPine [Norvasc] 10 mg PO DAILY 06/29/20 08/02/20 History lisinopriL 40 mg PO DAILY 06/29/20 08/02/20 History HYDROcodone/APAP 10-325MG [[place] 1 tab PO Q6HR PRN 3 Days #12 tab 07/12/2008/18 Rx 10-325] Potassium Chloride ER [K-Dur 20] 40 meq PO DAILY #30 tab 07/12/20 08/02/20 Rx Allergies Allergy/AdvReac Type Severity Reaction Status Date / Time No Known Allergies Allergy Verified 08/02/20 13:01 Surgical - Exam Vital Signs Temp Pulse Resp BP Pulse Ox 98.9 F 90 20 110/81 100 08/02/20 12:24 08/02/20 12:24 08/02/20 12:24 08/02/20 12:24 08/02/20 12:24 - General well developed, well nourished, no distress - Respiratory normal respiratory effort - Abdomen Soft, mildly distended. Mild left lower quadrant tenderness, no guarding or rebound. Right-sided urostomy with nicely budded stoma. - Psychiatric oriented to time, oriented to person, oriented to place, speech is normal, memory intact Results - Labs 08/04/20 05:28 08/04/20 05:28 Abnormal Lab Results - Last 24 Hours (Table) 08/04/20 08/04/20 Range/Units 05:28 05:28 RBC 3.45 L (3.80-5.40) m/uL Hgb 9.7 L (11.4-16.0) gm/dL Hct 31.1 L (34.0-46.0) % RDW 19.5 H (11.5-15.5) % Plt Count 726 H (150-450) k/uL Lymphocytes # 0.8 L (1.0-4.8) k/uL Sodium 131 L (137-145) mmol/L Potassium 3.2 L (3.5-5.1) mmol/L Chloride 110 H (98-107) mmol/L Carbon Dioxide 14 L (22-30) mmol/L BUN 30 H (7-17) mg/dL Creatinine 1.34 H (0.52-1.04) mg/dL Glucose 106 H (74-99) mg/dL Microbiology - Last 24 Hours (Table) 08/02/20 13:15 Blood Culture - Preliminary Blood No Growth after 24 hours 08/02/20 13:00 Blood Culture - Preliminary Blood No Growth after 24 hours Diabetes panel 08/04/20 Range/Units 05:28 Sodium 131 L (137-145) mmol/L Potassium 3.2 L (3.5-5.1) mmol/L Chloride 110 H (98-107) mmol/L Carbon Dioxide 14 L (22-30) mmol/L BUN 30 H (7-17) mg/dL Creatinine 1.34 H (0.52-1.04) mg/dL Glucose 106 H (74-99) mg/dL Calcium 8.4 (8.4-10.2) mg/dL Calcium panel 08/04/20 Range/Units 05:28 Calcium 8.4 (8.4-10.2) mg/dL Pituitary panel 08/04/20 Range/Units 05:28 Sodium 131 L (137-145) mmol/L Potassium 3.2 L (3.5-5.1) mmol/L Chloride 110 H (98-107) mmol/L Carbon Dioxide 14 L (22-30) mmol/L BUN 30 H (7-17) mg/dL Creatinine 1.34 H (0.52-1.04) mg/dL Glucose 106 H (74-99) mg/dL Calcium 8.4 (8.4-10.2) mg/dL Adrenal panel 08/04/20 Range/Units 05:28 Sodium 131 L (137-145) mmol/L Potassium 3.2 L (3.5-5.1) mmol/L Chloride 110 H (98-107) mmol/L Carbon Dioxide 14 L (22-30) mmol/L BUN 30 H (7-17) mg/dL Creatinine 1.34 H (0.52-1.04) mg/dL Glucose 106 H (74-99) mg/dL Calcium 8.4 (8.4-10.2) mg/dL - Imaging CT scan - abdomen: report reviewed, image reviewed Assessment and Plan (1) Hydronephrosis Current Visit: Yes Status: Acute Code(s): N13.30 - UNSPECIFIED HYDRONEPHROSIS SNOMED Code(s): 02594413 Plan: In summary, the patient has developed bilateral hydronephrosis, the etiology of which is unclear. A loopogram will be obtained to determine whether the patient has a stricture, which would most commonly be located at the ureteroileal anas tomotic site. Time with Patient: Greater than 30
--- NOTE | 2020-08-04 19:22 | FL ---
EXAMINATION TYPE: FL cystogram DATE OF EXAM: 08/04/2020 COMPARISON: None HISTORY: Bilateral hydronephrosis TECHNIQUE: The procedure was explained to the patient. All questions were answered. Verbal informed c onsent was obtained. A 15 [place] Storey catheter was placed through the ostomy without resistance. Whe n resistance was met in appropriate depth the catheter balloon was inflated with 7 mL saline. This wa s slightly withdrawn and there was a firm resistance. Under fluoroscopic observation contrast was the n administered in retrograde fashion. Imaging was performed including oblique views. Free gravity fed contrast flow slowed at approximately 170 mL. The procedure was terminated at this point. Contrast w as then drained with gravity. The balloon was deflated and the catheter withdrawn without difficulty. Patient was returned to her room having tolerated the procedure very well. FINDINGS: Steam Table Worker view: Preliminary mechanical engineering technician view was obtained. Abundant bowel gas is present. Contrast fl ows freely into the ileal conduit which fills normally. Retrograde filling is identified into the dil ated left ureter. The anastomosis is narrow. Some contrast identified within the renal calyces on the left. There may be some narrowing of the distal left ureter in its most dependent portion. Under jasmin l-time observation the right ureter is not identified. In retrospect, image 14 may suggest minimal co ntrast within the distal right ureter however no flow or persistent visualization of the ureter is ev ident. Severe stenosis near the anastomosis on the right should be suspected. Contrast freely empties through the catheter. Fluoroscopy time: 1 minute 27 seconds Images: 20 IMPRESSION: 1. Narrowing at the anastomosis on the left distal ureter may be present with dilated left ureter an d contrast within dilated calyces on the left. 2. Nonvisualization of the right ureter, right anastomosis stenosis should be suspected.
[2020-08-04] MEDS: traZODone HCL 100 MG TAB PO SCH (20:32)
[2020-08-05] MEDS: DEXTROSE 5%-0.45% NACL 1,000 ML with SODIUM BICARB (1 MEQ/ML) 50 ML IV SCH ×8 (02:28→22:01)
[2020-08-05] MEDS: HYDROmorphone 1 MG/ML 1 ML SYRINGE IVP PRN ×5 (03:11→23:21)
[2020-08-05] MEDS: ONDANSETRON 4 MG/2 ML VIAL IVP PRN ×2 (04:42→20:32)
[2020-08-05] MEDS: ALPRAZolam 1 MG TAB PO SCH ×4 (04:53→20:23)
[2020-08-05 06:32] LABS: African American GFR (CKD) 55 (>60 ml/min/1.73 sqM); Anion Gap 8 mmol/L; Blood Urea Nitrogen 21 mg/dL (7-17); Calcium 7.8 mg/dL (8.4-10.2); Carbon Dioxide 16 mmol/L (22-30); Chloride 110 mmol/L (98-107); Glucose 111 mg/dL (74-99); Non-African American GFR(CKD) 48 (>60 ml/min/1.73 sqM); Potassium 2.9 mmol/L (3.5-5.1); Sodium 134 mmol/L (137-145)
[2020-08-05] MEDS: ALBUTEROL HFA INHALER INHALATION PRN ×4 (07:51→19:26)
[2020-08-05] MEDS: carBAMazepine 200 MG TAB PO SCH ×2 (08:41→20:21)
[2020-08-05] MEDS: PANTOPRAZOLE 40 MG/10 ML VIAL IV SCH (08:41)
[2020-08-05] MEDS: METOPROLOL TARTRATE 12.5 MG TAB PO SCH ×2 (08:41→20:20)
[2020-08-05] MEDS: DULoxetine HCL 60 MG CAPSULE.DR PO SCH ×2 (08:41→20:19)
[2020-08-05] MEDS: busPIRone HCl 5 MG TAB PO SCH ×3 (08:41→20:19)
[2020-08-05] MEDS: HEPARIN SODIUM,PORCINE/PF 5,000 UNIT/0.5 ML SYRINGE SQ SCH ×2 (08:42→20:19)
[2020-08-05] MEDS: ACETAMINOPHEN TAB 325 MG TAB PO PRN (09:03)
[2020-08-05] MEDS ORDERED: FAMOTIDINE 20 MG TAB PO SCH (09:45)
[2020-08-05] MEDS: POTASSIUM CHLORIDE ER 20 MEQ TAB.ER PO SCH ×2 (12:15→13:17)
--- NOTE | 2020-08-05 13:57 | P.PN ---
Progress Note - Text Progress Note Date: 08/05/20 Patient is requesting more today. She currently feels hungry. On exam her vital signs are stable. Abdomen soft. There is no significant tenderness. The patient will have her diet is regular diet
--- NOTE | 2020-08-05 13:59 | P.PN ---
Progress Note - Text Progress Note Date: 08/05/20 Ms. Carlson's serum creatinine level today is 1.22. The loopogram yesterday showed reflux of contrast into the left ureter, but none on the right. 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 Her overall condition is improving, such that she is likely to be discharged home tomorrow. Arrangements will be made for her to undergo insertion of a right percutaneous nephrostomy tube as an outpatient. If her renal function improves, placement of an antegrade stent can be attempted. If this is successful, stent changes can be done periodically through the ileal conduit. All of this was discussed with her in detail.
--- NOTE | 2020-08-05 14:26 | P.PN ---
Progress Note - Text Progress Note Date: 08/05/20 Chief Complaint: Abdominal pain History of presenting complaint: This is a 59-year-old patient of Dr. Bolanos. Chronic stable medical conditions include hypertension, obesity with previous bariatric surgery with a small remnant status post stomach about 30 years ago, , bipolar disorder, hypertension, chronic back pain,. Patient had repeated blood infection with UTI and a chronic Storey catheter for 2 years. underwent partial bladder resection on January 08, 2019 [facility]. urostomy was created. Patient now presenting with 1 week of increasing pain in the epigastric area she described as stabbing pain. Also feels like a tight band across the area. Sig nificant nausea. Not able to eat because of the same. Daughter has an appetite. No fever no chills. Computed tomography scan in the ER was nonspecific.. Patient was here from July 03 through July 12. Admitted with a frozen abdomen. With a small bowel obstruction. Patient underwent lysis of radiation antrostomy between dilated small bowel and transverse colon. Patient states she's had chronically had nausea. Since she left the hospital she's been eating small amounts. Easily gets distended. She has maybe couple of bowel movements a day. Patient is a been having increasing abdominal pain. Her family doctor ordered a CAT scan that showed evidence of ileus and possible small bowel obstruction. And she was admitted to the ER. Pain is rather significant in abdomen. Seen with Dr. Munoz. Patient not a candidate for any surgical intervention. Today: Remains on clear liquids. Some abdominal pain and distention. No nausea vomiting. More comfortable overall. Review of systems: Was done for constitutional, cardiovascular, GI, pulmonary. relevant finding as above Active Medications Acetaminophen (Acetaminophen Tab 325 Mg Tab) 650 mg PO Q6HR PRN PRN Reason: Fever and/ or Pain Last Admin: 08/05/20 09:03 Dose: 650 mg Documented by: Albuterol Sulfate (Albuterol Hfa Inhaler) 2 puff INHALATION RT-Q4H PRN PRN Reason: Shortness Of Breath Last Admin: 08/05/20 11:31 Dose: 2 puff Documented by: Alprazolam (Alprazolam 1 Mg Tab) 1 mg PO QID HARRIET Last Admin: 08/05/20 13:25 Dose: 1 mg Documented by: Buspirone HCl (Buspirone Hcl 5 Mg Tab) 15 mg PO TID PENDING SALE TO [facility] Last Admin: 08/05/20 08:41 Dose: 15 mg Documented by: Carbamazepine (Carbamazepine 200 Mg Tab) 400 mg PO BID PENDING SALE TO [facility] Last Admin: 08/05/20 08:41 Dose: 400 mg Documented by: Duloxetine HCl (Duloxetine Hcl 60 Mg Capsule.Dr) 60 mg PO BID PENDING SALE TO [facility] Last Admin: 08/05/20 08:41 Dose: 60 mg Documented by: Famotidine (Famotidine 20 Mg Tab) 20 mg PO DAILY PENDING SALE TO [facility] Heparin Sodium (Porcine) (Heparin Sodium,Porcine/Pf 5,000 Unit/0.5 Ml Syringe) 5,000 unit SQ Q12HR PENDING SALE TO [facility] Last Admin: 08/05/20 08:42 Dose: 5,000 unit Documented by: Hydromorphone HCl (Hydromorphone 1 Mg/Ml 1 Ml Syringe) 1 mg IVP Q3HR PRN PRN Reason: Severe Pain Last Admin: 08/05/20 13:24 Dose: 1 mg Documented by: Sodium Bicarbonate 50 ml/ (Dextrose/Sodium Chloride) 1,050 mls @ 125 mls/hr IV .Q8H24M PENDING SALE TO [facility] Last Admin: 08/05/20 12:15 Dose: 125 mls/hr Documented by: Metoprolol Tartrate (Metoprolol Tartrate 12.5 Mg Tab) 12.5 mg PO BID PENDING SALE TO [facility] Last Admin: 08/05/20 08:41 Dose: 12.5 mg Documented by: Naloxone HCl (Naloxone 0.4 Mg/Ml 1 Ml Vial) 0.2 mg IV Q2M PRN PRN Reason: Opioid Reversal Ondansetron HCl (Ondansetron 4 Mg/2 Ml Vial) 4 mg IVP Q8HR PRN PRN Reason: Nausea And Vomiting Last Admin: 08/05/20 04:42 Dose: 4 mg Documented by: Trazodone HCl (Trazodone Hcl 100 Mg Tab) 100 mg PO HS PENDING SALE TO [facility] Last Admin: 08/04/20 20:32 Dose: 100 mg Documented by: Past medical history to include: Hypertension, obesity with previous bariatric surgery, bipolar disorder, hypertension, chronic back pain, partial bladder resection with the urostomy, pancreatitis, chronic back pain with pain stimulator, enterostomy small bowel to the transverse colon Social history: Lives alone . Patient smoked for close to 20 years and stopped in 1998. 2 packs a day. Recently started smoking again. No alcohol. Family history: Reviewed, noncontributory to presentation Physical examination: VITAL SIGNS: 98.1, 70, 15, 107/71, 99% room air GENERAL: , laying in bed, tired EYES: Pupils equal. Conjunctiva normal. HEENT: External appearance of nose and ears normal, oral cavity dry mucous membranes NECK: JVD not raised; masses not palpable. HEART: First and second heart sounds are normal; no edema. LUNGS: Respiratory rate normal; clear to auscultation. ABDOMEN: Soft, healed midline scar, some localized distention in the left lower quadrant with tenderness no guarding rigidity no guarding or rigidity, liver spleen not palpable, no masses palpable, midline scar is present, urostomy bag- with clear urine PSYCH: AO - times three. Mood and affect anxious INVESTIGATIONS, reviewed in the clinical context: August 05: Potassium 2.9 bun 21 and creatinine 1.2 to bicarb 16 July 7: Sodium 131 potassium 3.2 creatinine 1.34 bicarbonate 14 hemoglobin 9.7 platelets 726 August 03: Sodium 133 potassium 3 bicarbonate 10 creatinine 1.33 Abdominal x-ray: Correlate for ileus. Distal obstructive chain difficult to exclude. Computed tomography scan of the abdomen and pelvis without contrast: Persistent severe bilateral hydronephrosis. Persistent diffuse prominent bowel loops without transition point suggesting ileus. Fecal filled loops WBC 9.6 hemoglobin 10.9 platelets 96 6 potassium 3.6 bicarb 9 BUN 35 creatinine 1.39 Amylase 119 lipase 457 Lab work from July 12: Creatinine 1.45 Assessment and plan: -Acute small bowel obstruction versus ileus: This is a patient who July 12 underwent enterostomy to large bowel. Now presents with progressive increasing abdominal distention nausea vomiting.-Slow to respond Initially Nothing by mouth. Dr. Munoz -patient is not a surgical candidate. Started on clear liquids. Today advanced to regular diet by Dr. Munoz -Acute metabolic acidosis -slow to respond IV fluids with bicarbonate supplement to continue -Essential hypertension Hold amlodipine. Continue with Lopressor -Bipolar disorder Continue with BuSpar Cymbalta Tegretol -History of Bladder surgery with ileal conduit Patient has a urostomy -Normocytic anemia, likely from anemia of chronic disease Follow H&H -Chronic kidney disease stage III likely nephrosclerosis Follow renal function -Hypokalemia-worsening Replace potassium Continue IV fluids with bicarbonate. Diet advanced per general surgery. Replace potassium
[2020-08-05] MEDS: SODIUM BICARBONATE TAB 650 MG TAB PO SCH ×2 (16:21→20:21)
[2020-08-05] MEDS: traZODone HCL 100 MG TAB PO SCH (20:20)
[2020-08-06] MEDS: HYDROmorphone 1 MG/ML 1 ML SYRINGE IVP PRN ×6 (06:22→21:58)
[2020-08-06] MEDS: ONDANSETRON 4 MG/2 ML VIAL IVP PRN ×2 (06:22→18:55)
[2020-08-06 08:38] LABS: African American GFR (CKD) 55 (>60 ml/min/1.73 sqM); Anion Gap 7 mmol/L; Blood Urea Nitrogen 18 mg/dL (7-17); Calcium 7.9 mg/dL (8.4-10.2); Carbon Dioxide 20 mmol/L (22-30); Chloride 108 mmol/L (98-107); Glucose 100 mg/dL (74-99); Non-African American GFR(CKD) 48 (>60 ml/min/1.73 sqM); Potassium 3.3 mmol/L (3.5-5.1); Sodium 135 mmol/L (137-145)
[2020-08-06] MEDS: HEPARIN SODIUM,PORCINE/PF 5,000 UNIT/0.5 ML SYRINGE SQ SCH ×2 (09:09→21:00)
[2020-08-06] MEDS: busPIRone HCl 5 MG TAB PO SCH ×3 (09:09→21:58)
[2020-08-06] MEDS: METOPROLOL TARTRATE 12.5 MG TAB PO SCH ×2 (09:09→21:00)
[2020-08-06] MEDS: ALPRAZolam 1 MG TAB PO SCH ×4 (09:10→21:58)
[2020-08-06] MEDS: FAMOTIDINE 20 MG TAB PO SCH (09:10)
[2020-08-06] MEDS: DULoxetine HCL 60 MG CAPSULE.DR PO SCH ×2 (09:10→21:00)
[2020-08-06] MEDS: SODIUM BICARBONATE TAB 650 MG TAB PO SCH ×3 (09:10→21:00)
[2020-08-06] MEDS: carBAMazepine 200 MG TAB PO SCH ×2 (09:10→21:00)
[2020-08-06] MEDS: DEXTROSE 5%-0.45% NACL 1,000 ML with SODIUM BICARB (1 MEQ/ML) 50 ML IV SCH ×4 (10:49→21:59)
[2020-08-06] MEDS ORDERED: POTASSIUM CHLORIDE ER 20 MEQ TAB.ER PO STA (11:26)
--- NOTE | 2020-08-06 11:45 | P.PN ---
Progress Note - Text Progress Note Date: 08/06/20 The patient's complaints of crampy abdominal pain. She is having flatus. On exam her vital signs are stable. Abdomen soft. Chronic issues with partial small bowel obstruction. Patient has a frozen abdomen is not a surgical candidate. She'll receive supportive care. She'll remain on clear liquids.
--- NOTE | 2020-08-06 20:03 | P.PN ---
Progress Note - Text Progress Note Date: 08/06/20 Chief Complaint: Abdominal pain History of presenting complaint: This is a 59-year-old patient of Dr. Bolanos. Chronic stable medical conditions include hypertension, obesity with previous bariatric surgery with a small remnant status post stomach about 30 years ago, , bipolar disorder, hypertension, chronic back pain,. Patient had repeated blood infection with UTI and a chronic Storey catheter for 2 years. underwent partial bladder resection on January 08, 2019 [facility]. urostomy was created. Patient now presenting with 1 week of increasing pain in the epigastric area she described as stabbing pain. Also feels like a tight band across the area. Sig nificant nausea. Not able to eat because of the same. Daughter has an appetite. No fever no chills. Computed tomography scan in the ER was nonspecific.. Patient was here from July 03 through July 12. Admitted with a frozen abdomen. With a small bowel obstruction. Patient underwent lysis of radiation antrostomy between dilated small bowel and transverse colon. Patient states she's had chronically had nausea. Since she left the hospital she's been eating small amounts. Easily gets distended. She has maybe couple of bowel movements a day. Patient is a been having increasing abdominal pain. Her family doctor ordered a CAT scan that showed evidence of ileus and possible small bowel obstruction. And she was admitted to the ER. Pain is rather significant in abdomen. Seen with Dr. Munoz. Patient not a candidate for any surgical intervention. Per urology-old patient right percutaneous nephrostomy tube to be done. Today: Patient's diet was advanced to regular by Dr. Munoz. But was swished over to clear liquids for today's lunch.. No bowel movement. Abdominal distention. No nausea vomiting. Review of systems: Was done for constitutional, cardiovascular, GI, pulmonary. relevant finding as above Active Medications Acetaminophen (Acetaminophen Tab 325 Mg Tab) 650 mg PO Q6HR PRN PRN Reason: Fever and/ or Pain Last Admin: 08/05/20 09:03 Dose: 650 mg Documented by: Albuterol Sulfate (Albuterol Hfa Inhaler) 2 puff INHALATION RT-Q4H PRN PRN Reason: Shortness Of Breath Last Admin: 08/05/20 19:26 Dose: 2 puff Documented by: Alprazolam (Alprazolam 1 Mg Tab) 1 mg PO QID [facility] Last Admin: 08/06/20 18:52 Dose: 1 mg Documented by: Buspirone HCl (Buspirone Hcl 5 Mg Tab) 15 mg PO TID [facility] Last Admin: 08/06/20 15:54 Dose: 15 mg Documented by: Carbamazepine (Carbamazepine 200 Mg Tab) 400 mg PO BID [facility] Last Admin: 08/06/20 09:10 Dose: 400 mg Documented by: Duloxetine HCl (Duloxetine Hcl 60 Mg Capsule.Dr) 60 mg PO BID [facility] Last Admin: 08/06/20 09:10 Dose: 60 mg Documented by: Famotidine (Famotidine 20 Mg Tab) 20 mg PO DAILY [facility] Last Admin: 08/06/20 09:10 Dose: 20 mg Documented by: Heparin Sodium (Porcine) (Heparin Sodium,Porcine/Pf 5,000 Unit/0.5 Ml Syringe) 5,000 unit SQ Q12HR [facility] Last Admin: 08/06/20 09:09 Dose: 5,000 unit Documented by: Hydromorphone HCl (Hydromorphone 1 Mg/Ml 1 Ml Syringe) 1 mg IVP Q3HR PRN PRN Reason: Severe Pain Last Admin: 08/06/20 18:52 Dose: 1 mg Documented by: Sodium Bicarbonate 50 ml/ (Dextrose/Sodium Chloride) 1,050 mls @ 125 mls/hr IV .Q8H24M [facility] Last Admin: 08/06/20 10:49 Dose: 125 mls/hr Documented by: Metoprolol Tartrate (Metoprolol Tartrate 12.5 Mg Tab) 12.5 mg PO BID [facility] Last Admin: 08/06/20 09:09 Dose: 12.5 mg Documented by: Naloxone HCl (Naloxone 0.4 Mg/Ml 1 Ml Vial) 0.2 mg IV Q2M PRN PRN Reason: Opioid Reversal Ondansetron HCl (Ondansetron 4 Mg/2 Ml Vial) 4 mg IVP Q8HR PRN PRN Reason: Nausea And Vomiting Last Admin: 08/06/20 18:55 Dose: 4 mg Documented by: Sodium Bicarbonate (Sodium Bicarbonate Tab 650 Mg Tab) 650 mg PO TID [facility] Last Admin: 08/06/20 15:54 Dose: 650 mg Documented by: Trazodone HCl (Trazodone Hcl 100 Mg Tab) 100 mg PO HS [facility] Last Admin: 08/05/20 20:20 Dose: 100 mg Documented by: Past medical history to include: Hypertension, obesity with previous bariatric surgery, bipolar disorder, hype rtension, chronic back pain, partial bladder resection with the urostomy, pancreatitis, chronic back pain with pain stimulator, enterostomy small bowel to the transverse colon Social history: Lives alone . Patient smoked for close to 20 years and stopped in 1998. 2 packs a day. Recently started smoking again. No alcohol. Family history: Reviewed, noncontributory to presentation Physical examination: VITAL SIGNS: 97.7, 73, 16, 150/88, 98% room air GENERAL: , laying in bed, tired EYES: Pupils equal. Conjunctiva normal. HEENT: External appearance of nose and ears normal, oral cavity dry mucous membranes NECK: JVD not raised; masses not palpable. HEART: First and second heart sounds are normal; no edema. LUNGS: Respiratory rate normal; clear to auscultation. ABDOMEN: Soft, healed midline scar, localized distention in the left lower quadrant with tenderness no guarding rigidity no guarding or rigidity, liver spleen not palpable, no masses palpable, midline scar is present, urostomy bag- with clear urine PSYCH: AO - times three. Mood and affect anxious INVESTIGATIONS, reviewed in the clinical context: August 06: Potassium 3.3 bicarb 20 creatinine 1.2 to July 8: Potassium 2.9 bun 21 and creatinine 1.2 to bicarb 16 July 7: Sodium 131 potassium 3.2 creatinine 1.34 bicarbonate 14 hemoglobin 9.7 platelets 726 July 6: Sodium 133 potassium 3 bicarbonate 10 creatinine 1.33 Abdominal x-ray: Correlate for ileus. Distal obstructive chain difficult to exclude. Computed tomography scan of the abdomen and pelvis without contrast: Persistent severe bilateral hydronephrosis. Persistent diffuse prominent bowel loops without transition point suggesting ileus. Fecal filled loops WBC 9.6 hemoglobin 10.9 platelets 96 6 potassium 3.6 bicarb 9 BUN 35 creatinine 1.39 Amylase 119 lipase 457 Lab work from July 12: Creatinine 1.45 Assessment and plan: -Acute small bowel obstruction versus ileus: This is a patient who July 12 underwent enterostomy to large bowel. Now presents with progressive increasing abdominal distention nausea vomiting.-Not improving Initially Nothing by mouth. Dr. Munoz -patient is not a surgical candidate. Started on clear liquids. advanced to regular diet by Dr. Munoz. Diet scale back to clear liquids. Repeat abdominal x-ray in the morning. -Acute metabolic acidosis -slow to respond IV fluids with bicarbonate supplement to continue -Essential hypertension Hold amlodipine. Continue with Lopressor -Bipolar disorder Continue with BuSpar Cymbalta Tegretol -History of Bladder surgery with ileal conduit Patient has a urostomy -Normocytic anemia, likely from anemia of chronic disease Follow H&H -Chronic kidney disease stage III likely nephrosclerosis Follow renal function -Slow to improve Replace potassium Continue IV fluids with bicarbonate. Diet has been backed off to clear liquids by surgery. Repeat abdominal x-ray in the morning. Replace potassium
[2020-08-06] MEDS: traZODone HCL 100 MG TAB PO SCH (21:00)
[2020-08-06] MEDS: ACETAMINOPHEN TAB 325 MG TAB PO PRN (22:00)
[2020-08-07] MEDS: HYDROmorphone 1 MG/ML 1 ML SYRINGE IVP PRN ×7 (02:39→23:43)
[2020-08-07] MEDS: ACETAMINOPHEN TAB 325 MG TAB PO PRN (02:45)
[2020-08-07] MEDS: ONDANSETRON 4 MG/2 ML VIAL IVP PRN ×3 (02:45→20:05)
[2020-08-07 06:41] LABS: African American GFR (CKD) 61 (>60 ml/min/1.73 sqM); Anion Gap 5 mmol/L; Blood Urea Nitrogen 18 mg/dL (7-17); Calcium 8.4 mg/dL (8.4-10.2); Carbon Dioxide 24 mmol/L (22-30); Chloride 107 mmol/L (98-107); Glucose 98 mg/dL (74-99); Non-African American GFR(CKD) 53 (>60 ml/min/1.73 sqM); Potassium 3.9 mmol/L (3.5-5.1); Sodium 136 mmol/L (137-145)
--- NOTE | 2020-08-07 08:06 | XR ---
EXAMINATION TYPE: XR abdomen 2V DATE OF EXAM: 08/07/2020 COMPARISON: 08/02/2020 HISTORY: Abnormal x-ray TECHNIQUE: One view abdominal series FINDINGS: Numerous dilated bowel loops with air-fluid levels. There is a stimulator device noted and there are multiple surgical clips. Suggestive an ostomy in the right lower quadrant. Lung bases are clear. IMPRESSION: 1. Persistent numerous dilated bowel loops with air-fluid levels correlate for obstruction.
[2020-08-07] MEDS: ALBUTEROL HFA INHALER INHALATION PRN ×3 (08:18→16:25)
[2020-08-07] MEDS: busPIRone HCl 5 MG TAB PO SCH ×3 (09:31→22:07)
[2020-08-07] MEDS: METOPROLOL TARTRATE 12.5 MG TAB PO SCH ×2 (09:31→22:07)
[2020-08-07] MEDS: ALPRAZolam 1 MG TAB PO SCH ×4 (09:31→22:07)
[2020-08-07] MEDS: FAMOTIDINE 20 MG TAB PO SCH (09:31)
[2020-08-07] MEDS: SODIUM BICARBONATE TAB 650 MG TAB PO SCH ×3 (09:31→22:07)
[2020-08-07] MEDS: DULoxetine HCL 60 MG CAPSULE.DR PO SCH ×2 (09:32→20:10)
[2020-08-07] MEDS: HEPARIN SODIUM,PORCINE/PF 5,000 UNIT/0.5 ML SYRINGE SQ SCH ×2 (09:32→20:10)
[2020-08-07] MEDS: carBAMazepine 200 MG TAB PO SCH ×2 (09:32→20:10)
[2020-08-07] MEDS: DEXTROSE 5%-0.45% NACL 1,000 ML with SODIUM BICARB (1 MEQ/ML) 50 ML IV SCH ×6 (09:32→16:16)
--- NOTE | 2020-08-07 11:09 | P.PN ---
Subjective Progress Note Date: 08/07/20 CHIEF COMPLAINT: Abdominal pain HISTORY OF PRESENT ILLNESS: Patient is being followed for a partial bowel obstruction. Patient did have a small bowel movement and is passing gas. She does have nausea with dry heaves. Denies any vomiting. She is currently on a clear liquid diet She is still having abdominal pain but it is better than on admission. Abdomen is distended. Afebrile. Sodium 136 potassium 3.9 creatinine 1.12 Abdominal x-ray shows persistent numerous dilated bowel loops with air-fluid levels correlate for obstruction. Reviewed x-ray results with Dr. howard PHYSICAL EXAM: VITAL SIGNS: Reviewed. GENERAL: Well-developed in no acute distress. HEENT: No sclera icterus. Extraocular movements grossly intact. Moist buccal mucosa. Head is atraumatic, normocephalic. ABDOMEN: Soft. Distended. Nontender. urostomy on the right of abdomen NEUROLOGIC: Alert and oriented. Cranial nerves II through XII grossly intact. ASSESSMENT: 1. Partial bowel obstruction with abdominal x-ray still showing persistent numerous dilated bowel loops with air-fluid levels correlate for obstruction 2. History of frozen abdomen status post exploratory laparotomy, lysis of adhesions and enteroenterostomy between dilated small bowel and transverse colon on 07/05/2020 3. History of bowel obstructions 4. Elevated lipase and amylase and prior history of pancreatitis. Repeat lipase normalized PLAN: -No surgical intervention planned. Patient is not a surgical candidate. She has history of frozen abdomen. Recommend conservative management -Continue clear liquids -Continue IV fluids -Continue pain medication as needed -Encourage patient to ambulate -She had prophylaxis Protonix and DVT prophylaxis subcu heparin Physician Cloak Room Attendant note has been reviewed by physician. Signing provider agrees with the documented findings, assessment, and plan of care. Objective - Vital Signs Vital signs: Vital Signs Temp 98.6 F 08/07/20 05:33 Pulse 74 08/07/20 08:00 Resp 14 08/07/20 08:00 BP 138/94 08/07/20 05:33 Pulse Ox 98 08/07/20 05:33 Intake & Output 08/06/20 08/07/20 08/07/20 18:59 06:59 18:59 Intake Total 2340 Output Total 3375 1000 Balance -3375 1340 Intake: Intake, IV Titration 1500 Amount Dextrose 5%-0.45% NaCl 1, 1500 000 ml @ 125 mls/hr IV . Q8H24M [facility] with Sodium Bicarb (1 Meq/ml) 50 ml Rx#:[id number] Oral 840 Output: Urine 3375 1000 Other: Voiding Method Ileal Conduit (Right) Ileal Conduit (Right) Ileal Conduit (Right) - Labs CBC & Chem 7: 08/04/20 05:28 08/07/20 05:42 Labs: Abnormal Lab Results - Last 24 Hours (Table) 08/07/20 Range/Units 05:42 Sodium 136 L (137-145) mmol/L BUN 18 H (7-17) mg/dL Creatinine 1.12 H (0.52-1.04) mg/dL Microbiology - Last 24 Hours (Table) 08/02/20 13:15 Blood Culture - Preliminary Blood No Growth after 96 hours 08/02/20 13:00 Blood Culture - Preliminary Blood No Growth after 96 hours
[2020-08-07] MEDS ORDERED: TEMAZEPAM 15 MG CAP PO PRN (14:29)
[2020-08-07 15:16] LABS: Appearance,Urine Cloudy (Clear); Bilirubin,Urine Negative (Negative); Blood,Urine Negative (Negative); Budding Yeast,Urine Few /hpf; Color,Urine Light Yellow; Glucose,Urine (UA) Negative (Negative); Ketones,Urine Negative (Negative); Leukocyte Esterase,Urine Small (Negative); Nitrite,Urine Positive (Negative); Protein,Urine Trace (Negative); RBC,Urine 3 /hpf (0-5); Specific Gravity,Urine 1.007 (1.001-1.035); Urobilinogen,Urine <2.0 mg/dL (<2.0); WBC,Urine 8 /hpf (0-5)
--- NOTE | 2020-08-07 15:35 | PN ---
PROGRESS NOTE DATE OF SERVICE: 08/07/2020. This 59-year-old woman who was admitted with abdominal pain, had possible acute small- bowel obstruction. Surgery is following the patient closely. The patient has abdominal distention. Patient has some minimal bowel movements. The most recent abdominal x-ray which was reviewed personally by me showed persistent numerous dilated bowel loops. The patient is being closely monitored. Surgery is following the patient closely. PAST MEDICAL HISTORY: Reviewed. REVIEW OF SYSTEMS: CARDIOVASCULAR SYSTEM: No angina. RESPIRATORY SYSTEM: As mentioned earlier. GI: As mentioned earlier. : As mentioned earlier. NERVOUS SYSTEM: No numbness or weakness. CURRENT MEDICATIONS: Current medications are reviewed and include Tylenol, Ventolin, BuSpar, Pepcid, heparin, Lopressor, sodium bicarb, Desyrel and doses are reviewed. PHYSICAL EXAMINATION: Patient is alert and oriented x3. Pulse 68, blood pressure 150/88, respiration 16, temperature 98.6, pulse ox 100% on room air. HEENT: Conjunctivae normal. NECK: No jugular venous distention. CARDIOVASCULAR: S1, S2 muffled. RESPIRATORY: Breath sounds diminished at the bases. A few scattered rhonchi. ABDOMEN: Soft, mild diffuse distention. Mild diffuse discomfort also on palpation. Bowel sounds diminished. LEGS: No edema, no swelling. NERVOUS SYSTEM: No focal deficits. LABS: WBC 7.5, hemoglobin 9.7, sodium 136, potassium 3.9, creatinine is 1.12. UA initially showed 7 WBCs. Blood culture negative so far. ASSESSMENT: 1. Abdominal distention with acute small-bowel obstruction with persistent dilated bowel loops. 2. Hyponatremia. 3. Rule out urinary tract infection. 4. Severe metabolic acidosis. 5. Renal failure with acute tubular necrosis. 6. Elevated amylase, lipase, possible mild pancreatitis, present on admission. 7. Severe bilateral hydronephrosis. 8. History of asthma. 9. History of hearing defects. 10.History of degenerative joint disease. 11.History of pneumonia. 12.History of chronic back pain, degenerative joint disease. 13.History of bowel obstruction. 14.History of bariatric surgery. 15.History of bladder surgery. 16.History of cholecystectomy. 17.History of cystectomy due to longstanding indwelling Storey catheter. 18.Anxiety, bipolar depression. 19.History of nicotine dependence. RECOMMENDATIONS AND DISCUSSION: In this 59-year-old woman who presented with multiple complex medical issues, we will monitor the patient closely. Continue the current medications. Continue symptomatic treatment. I recommend UA with micro and as well as repeat cultures. Continue to monitor. Repeat labs. Follow with Urology and Surgery. The possibility of right stricture was suspected. Right percutaneous nephrostomy tube was planned as an outpatient. We will continue to monitor. Patient is still symptomatic and unable to keep anything down. We will advance diet slowly as per surgical recommendations. Will continue symptomatic treatment. See orders for details. MMODL / IJN: [id number] / MTDD
[2020-08-07 16:02] LABS: Anisocytosis Slight; Basophils % (A) 0 %; Eosinophils # (A) 0.3 k/uL (0-0.7); Eosinophils % (A) 4 %; HCT 29.2 % (34.0-46.0); Hypochromasia Moderate; Lymphocytes # (A) 1.3 k/uL (1.0-4.8); Lymphocytes % (A) 18 %; MCV 90.2 fL (80.0-100.0); Mean Platelet Volume 6.5; Monocytes # (A) 0.3 k/uL (0-1.0); Monocytes % (A) 4 %; Neutrophils # (A) 5.1 k/uL (1.3-7.7); Neutrophils % (A) 72 %; Platelet Count 573 k/uL (150-450); Poikilocytosis Slight; RBC 3.23 m/uL (3.80-5.40); RDW 19.6 % (11.5-15.5); WBC 7.1 k/uL (3.8-10.6)
[2020-08-07 16:13] LABS: ALT 14 U/L (4-34); AST 25 U/L (14-36); African American GFR (CKD) 77 (>60 ml/min/1.73 sqM); Albumin 2.4 g/dL (3.5-5.0); Albumin/Globulin Ratio 0.9; Alkaline Phosphatase 145 U/L (38-126); Anion Gap 5 mmol/L; Blood Urea Nitrogen 16 mg/dL (7-17); Calcium 8.1 mg/dL (8.4-10.2); Carbon Dioxide 21 mmol/L (22-30); Chloride 103 mmol/L (98-107); Globulin 2.8 g/dL; Glucose 112 mg/dL (74-99); Non-African American GFR(CKD) 67 (>60 ml/min/1.73 sqM); Potassium 3.5 mmol/L (3.5-5.1); Sodium 129 mmol/L (137-145); Total Bilirubin 0.4 mg/dL (0.2-1.3); Total Protein 5.2 g/dL (6.3-8.2)
[2020-08-07] MEDS: PANTOPRAZOLE 40 MG/10 ML VIAL IVP SCH ×2 (16:15→20:09)
[2020-08-07] MEDS: traZODone HCL 100 MG TAB PO SCH (22:07)
[2020-08-08] MEDS: DEXTROSE 5%-0.45% NACL 1,000 ML with SODIUM BICARB (1 MEQ/ML) 50 ML IV SCH ×4 (00:47→10:23)
[2020-08-08] MEDS: ONDANSETRON 4 MG/2 ML VIAL IVP PRN ×2 (04:42→16:49)
[2020-08-08] MEDS: HYDROmorphone 1 MG/ML 1 ML SYRINGE IVP PRN ×5 (04:44→21:47)
[2020-08-08 07:03] LABS: Anisocytosis Slight; Basophils % (A) 1 %; Eosinophils # (A) 0.4 k/uL (0-0.7); Eosinophils % (A) 6 %; HCT 33.2 % (34.0-46.0); HGB 10.5 gm/dL (11.4-16.0); Hypochromasia Moderate; Lymphocytes # (A) 0.9 k/uL (1.0-4.8); Lymphocytes % (A) 12 %; MCH 28.5 pg (25.0-35.0); MCHC 31.7 g/dL (31.0-37.0); MCV 89.9 fL (80.0-100.0); Mean Platelet Volume 6.3; Monocytes # (A) 0.4 k/uL (0-1.0); Monocytes % (A) 5 %; Neutrophils # (A) 5.5 k/uL (1.3-7.7); Neutrophils % (A) 76 %; Platelet Count 605 k/uL (150-450); Poikilocytosis Slight; RBC 3.69 m/uL (3.80-5.40); RDW 19.3 % (11.5-15.5); WBC 7.2 k/uL (3.8-10.6)
[2020-08-08] MEDS: SODIUM BICARBONATE TAB 650 MG TAB PO SCH (08:07)
[2020-08-08] MEDS: DULoxetine HCL 60 MG CAPSULE.DR PO SCH ×2 (08:07→21:41)
[2020-08-08] MEDS: busPIRone HCl 5 MG TAB PO SCH ×3 (08:07→21:40)
[2020-08-08] MEDS: HEPARIN SODIUM,PORCINE/PF 5,000 UNIT/0.5 ML SYRINGE SQ SCH ×2 (08:07→21:43)
[2020-08-08] MEDS: PANTOPRAZOLE 40 MG/10 ML VIAL IVP SCH ×2 (08:07→21:43)
[2020-08-08] MEDS: METOPROLOL TARTRATE 12.5 MG TAB PO SCH ×2 (08:07→21:42)
[2020-08-08] MEDS: ALPRAZolam 1 MG TAB PO SCH ×4 (08:07→21:41)
[2020-08-08] MEDS: carBAMazepine 200 MG TAB PO SCH ×2 (08:08→21:42)
[2020-08-08] MEDS: FAMOTIDINE 20 MG TAB PO SCH (08:08)
[2020-08-08] MEDS: ALBUTEROL HFA INHALER INHALATION PRN ×4 (09:02→20:12)
--- NOTE | 2020-08-08 11:33 | P.PN ---
Subjective Progress Note Date: 08/08/20 CHIEF COMPLAINT: Abdominal pain HISTORY OF PRESENT ILLNESS: Patient is being followed for a partial bowel obstruction. Patient is having bowel movements. In passing gas. She reports decrease in abdominal pain and distention. Patient's diet will be advanced as tolerated. She's afebrile. WBC 7.2. Patient seen and examined with Dr. howard PHYSICAL EXAM: VITAL SIGNS: Reviewed. GENERAL: Well-developed in no acute distress. HEENT: No sclera icterus. Extraocular movements grossly intact. Moist buccal mucosa. Head is atraumatic, normocephalic. ABDOMEN: Soft. Decrease in abdominal distention. Nontender. urostomy on the right of abdomen NEUROLOGIC: Alert and oriented. Cranial nerves II through XII grossly intact. ASSESSMENT: 1. Partial bowel obstruction with abdominal x-ray still showing persistent numerous dilated bowel loops with air-fluid levels correlate for obstruction 2. History of frozen abdomen status post exploratory laparotomy, lysis of adhesions and enteroenterostomy between dilated small bowel and transverse colon on 07/05/2020 3. History of bowel obstructions 4. Elevated lipase and amylase and prior history of pancreatitis. Repeat lipase normalized PLAN: -No surgical intervention planned. Patient is not a surgical candidate. She has history of frozen abdomen. Recommend conservative management -Advance diet as tolerated -Continue IV fluids -Continue pain medication as needed -Encourage patient to ambulate -She had prophylaxis Protonix and DVT prophylaxis subcu heparin Physician Restaurant Hospitality Manager note has been reviewed by physician. Signing provider agrees with the documented findings, assessment, and plan of care. Objective - Vital Signs Vital signs: Vital Signs Temp 98.1 F 08/08/20 05:00 Pulse 76 08/08/20 05:00 Resp 20 08/08/20 05:00 BP 117/82 08/08/20 05:00 Pulse Ox 98 08/08/20 05:00 Intake & Output 08/07/20 08/08/20 08/08/20 18:59 06:59 18:59 Intake Total 240 2360 Output Total 1100 4900 Balance -860 -2540 Weight 44.452 kg Intake: Intake, IV Titration 1560 Amount Dextrose 5%-0.45% NaCl 1, 1560 000 ml @ 125 mls/hr IV . Q8H24M [facility] with Sodium Bicarb (1 Meq/ml) 50 ml Rx#:[id number] Oral 240 800 Output: Urine 1100 4900 Other: Voiding Method Ileal Conduit (Right) Ileal Conduit (Right) Ileal Conduit (Right) # Voids 0 - Labs CBC & Chem 7: 08/08/20 06:22 08/07/20 15:35 Labs: Abnormal Lab Results - Last 24 Hours (Table) 08/07/20 08/07/20 08/07/20 Range/Units 14:50 15:35 15:35 RBC 3.23 L (3.80-5.40) m/uL Hgb 9.0 L (11.4-16.0) gm/dL Hct 29.2 L (34.0-46.0) % RDW 19.6 H (11.5-15.5) % Plt Count 573 H (150-450) k/uL Lymphocytes # (1.0-4.8) k/uL Sodium 129 L (137-145) mmol/L Carbon Dioxide 21 L (22-30) mmol/L Glucose 112 H (74-99) mg/dL Calcium 8.1 L (8.4-10.2) mg/dL Alkaline Phosphatase 145 H (38-126) U/L Total Protein 5.2 L (6.3-8.2) g/dL Albumin 2.4 L (3.5-5.0) g/dL Urine Appearance Cloudy H (Clear) Urine Protein Trace H (Negative) Urine Nitrite Positive H (Negative) Ur Leukocyte Esterase Small H (Negative) Urine WBC 8 H (0-5) /hpf Urine Yeast (Budding) Few H (None) /hpf 08/08/20 Range/Units 06:22 RBC 3.69 L (3.80-5.40) m/uL Hgb 10.5 L (11.4-16.0) gm/dL Hct 33.2 L (34.0-46.0) % RDW 19.3 H (11.5-15.5) % Plt Count 605 H (150-450) k/uL Lymphocytes # 0.9 L (1.0-4.8) k/uL Sodium (137-145) mmol/L Carbon Dioxide (22-30) mmol/L Glucose (74-99) mg/dL Calcium (8.4-10.2) mg/dL Alkaline Phosphatase (38-126) U/L Total Protein (6.3-8.2) g/dL Albumin (3.5-5.0) g/dL Urine Appearance (Clear) Urine Protein (Negative) Urine Nitrite (Negative) Ur Leukocyte Esterase (Negative) Urine WBC (0-5) /hpf Urine Yeast (Budding) (None) /hpf Microbiology - Last 24 Hours (Table) 08/02/20 13:15 Blood Culture - Preliminary Blood No Growth after 120 hours 08/02/20 13:00 Blood Culture - Preliminary Blood No Growth after 120 hours
[2020-08-08] MEDS: ACETAMINOPHEN TAB 325 MG TAB PO PRN (13:11)
--- NOTE | 2020-08-08 16:06 | PN ---
PROGRESS NOTE DATE OF SERVICE: 08/08/2020 This 59-year-old woman who was admitted with abdominal distention with partial bowel obstruction, possibly ileus, is being closely monitored. The patient has abdominal distention. Patient also had habitual vomiting. Multiple consultants are following the patient closely. The patient is not a surgical candidate. The patient has significant hyponatremia. Past medical history reviewed. REVIEW OF SYSTEMS: CARDIOVASCULAR SYSTEM: No angina, palpitations. RESPIRATORY SYSTEM: As mentioned earlier. GI: As mentioned earlier. : No dysuria or retention. NERVOUS SYSTEM: No numbness, weakness. CURRENT MEDICATIONS: Tylenol, Ventolin, Xanax, BuSpar, tegretol. Doses are reviewed. PHYSICAL EXAMINATION: Patient is alert and oriented x3. Pulse 78, blood pressure 130/82, respirations 16, temperature 98.1, pulse ox 98% on room air. HEENT: Conjunctivae normal. NECK: No jugular venous distention. CARDIOVASCULAR SYSTEM: S1, S2 muffled. RESPIRATORY SYSTEM: Breath sounds diminished at the bases. No rhonchi. No crackles. ABDOMEN: Soft. Mild diffuse distention. No tenderness. No guarding. No rigidity. Bowel sounds diminished. LEGS: No edema. No swelling. NERVOUS SYSTEM: No focal deficit. LABS: WBC 7.2, hemoglobin 10.5. Sodium 129 yesterday. UA noted. ASSESSMENT: 1. Abdominal distention with acute small-bowel obstruction and persistent dilatation of the small bowel loops, possible ileus. 2. Hyponatremia. 3. Rule out urinary tract infection. 4. Severe metabolic acidosis. 5. Renal failure, acute tubular necrosis with acute renal failure. 6. Elevated amylase, lipase, possible mild pancreatitis, present on admission. 7. Severe bilateral hydronephrosis. 8. History of asthma. 9. History of hearing defects. 10.History of degenerative joint disease. 11.History of pneumonia. 12.History of chronic back pain, degenerative joint disease. 13.History of bowel obstruction. 14.History of bariatric surgery. 15.History of bladder surgery. 16.History of cholecystectomy. 17.History of cystectomy with longstanding indwelling Storey catheter previously. 18.Anxiety, depression, bipolar. 19.History of nicotine dependence. RECOMMENDATIONS AND DISCUSSION: I recommend to continue current medications, continue with the monitoring, symptomatic treatment. Otherwise at this time I would also recommend a short course of empiric antibiotics. Urine culture has been sought. Prognosis guarded because of multiple complex medical issues. Advance diet per Surgery. Continue with the Protonix. Further recommendations to follow. MMODL / IJN: [id number] /
[2020-08-08 16:40] LABS: African American GFR (CKD) 81 (>60 ml/min/1.73 sqM); Anion Gap 3 mmol/L; Blood Urea Nitrogen 14 mg/dL (7-17); Calcium 7.8 mg/dL (8.4-10.2); Carbon Dioxide 27 mmol/L (22-30); Chloride 100 mmol/L (98-107); Glucose 115 mg/dL (74-99); Non-African American GFR(CKD) 70 (>60 ml/min/1.73 sqM); Sodium 130 mmol/L (137-145)
[2020-08-08 16:42] LABS: Potassium 2.8 mmol/L (3.5-5.1)
[2020-08-08] MEDS ORDERED: Potassium Replacement Protocol 1 EACH MISC MISCELLANE PRN (16:56)
[2020-08-08] MEDS: POTASSIUM CHLORIDE ER 20 MEQ TAB.ER PO SCH ×3 (17:08→19:55)
[2020-08-08] MEDS: traZODone HCL 100 MG TAB PO SCH (21:41)
[2020-08-09] MEDS: HYDROmorphone 1 MG/ML 1 ML SYRINGE IVP PRN ×4 (02:25→19:28)
[2020-08-09] MEDS: POTASSIUM CHLORIDE ER 20 MEQ TAB.ER PO SCH ×2 (02:32→03:32)
[2020-08-09 06:19] LABS: Anisocytosis Slight; Basophils % (A) 1 %; Eosinophils # (A) 0.4 k/uL (0-0.7); Eosinophils % (A) 6 %; HCT 30.6 % (34.0-46.0); HGB 9.7 gm/dL (11.4-16.0); Hypochromasia Moderate; Lymphocytes # (A) 0.8 k/uL (1.0-4.8); Lymphocytes % (A) 10 %; MCH 28.8 pg (25.0-35.0); MCHC 31.8 g/dL (31.0-37.0); MCV 90.7 fL (80.0-100.0); Mean Platelet Volume 6.5; Monocytes # (A) 0.3 k/uL (0-1.0); Monocytes % (A) 5 %; Neutrophils # (A) 5.9 k/uL (1.3-7.7); Neutrophils % (A) 79 %; Platelet Count 536 k/uL (150-450); RBC 3.37 m/uL (3.80-5.40); RDW 19.1 % (11.5-15.5); WBC 7.5 k/uL (3.8-10.6)
[2020-08-09] MEDS: ALBUTEROL HFA INHALER INHALATION PRN ×3 (07:49→20:34)
[2020-08-09 08:01] LABS: African American GFR (CKD) 69 (>60 ml/min/1.73 sqM); Anion Gap 5 mmol/L; Blood Urea Nitrogen 17 mg/dL (7-17); Carbon Dioxide 25 mmol/L (22-30); Chloride 104 mmol/L (98-107); Glucose 88 mg/dL (74-99); Non-African American GFR(CKD) 60 (>60 ml/min/1.73 sqM); Potassium 3.9 mmol/L (3.5-5.1); Sodium 134 mmol/L (137-145)
[2020-08-09] MEDS: HEPARIN SODIUM,PORCINE/PF 5,000 UNIT/0.5 ML SYRINGE SQ SCH ×2 (08:41→20:53)
[2020-08-09] MEDS: PANTOPRAZOLE 40 MG/10 ML VIAL IVP SCH ×2 (08:42→20:53)
[2020-08-09] MEDS: carBAMazepine 200 MG TAB PO SCH ×2 (08:43→21:25)
[2020-08-09] MEDS: DULoxetine HCL 60 MG CAPSULE.DR PO SCH ×2 (08:43→20:53)
[2020-08-09] MEDS: busPIRone HCl 5 MG TAB PO SCH ×3 (08:43→21:25)
[2020-08-09] MEDS: FAMOTIDINE 20 MG TAB PO SCH (08:44)
[2020-08-09] MEDS: ALPRAZolam 1 MG TAB PO SCH ×4 (08:44→21:25)
[2020-08-09] MEDS: METOPROLOL TARTRATE 12.5 MG TAB PO SCH ×2 (08:44→21:25)
--- NOTE | 2020-08-09 15:00 | P.PN ---
Subjective Progress Note Date: 08/09/20 CHIEF COMPLAINT: Abdominal pain HISTORY OF PRESENT ILLNESS: Patient is being followed for a partial bowel obstruction. Patient is having bowel movements and is passing gas. She reports improvement in her abdominal distention. She reports decrease in abdominal pain. She is having diarrhea and nausea. She is on a regular diet. She's afebrile. WBC 7.5 hemoglobin 9.7 potassium 3.9 creatinine 1.2 Patient seen and examined with Dr. howard PHYSICAL EXAM: VITAL SIGNS: Reviewed. GENERAL: Well-developed in no acute distress. HEENT: No sclera icterus. Extraocular movements grossly intact. Moist buccal mucosa. Head is atraumatic, normocephalic. ABDOMEN: Soft. Decrease in abdominal distention. Nontender. urostomy on the right of abdomen NEUROLOGIC: Alert and oriented. Cranial nerves II through XII grossly intact. ASSESSMENT: 1. Partial bowel obstruction with abdominal x-ray still showing persistent numerous dilated bowel loops with air-fluid levels correlate for obstruction 2. History of frozen abdomen status post exploratory laparotomy, lysis of adhesions and enteroenterostomy between dilated small bowel and transverse colon on 07/05/2020 3. History of bowel obstructions 4. Elevated lipase and amylase and prior history of pancreatitis. Repeat lipase normalized PLAN: -Patient is stable from surgical standpoint for discharge -No surgical intervention planned. Patient is not a surgical candidate. She has history of frozen abdomen. Recommend conservative management -Continue regular diet -Continue pain medication as needed -Encourage patient to ambulate -She had prophylaxis Protonix and DVT prophylaxis subcu heparin Physician Drywall Carrier note has been reviewed by physician. Signing provider agrees with the documented findings, assessment, and plan of care. Objective - Vital Signs Vital signs: Vital Signs Temp 98.2 F 08/09/20 05:00 Pulse 74 08/09/20 05:00 Resp 20 08/09/20 05:00 BP 141/85 08/09/20 05:00 Pulse Ox 96 08/09/20 05:00 Intake & Output 08/08/20 08/09/20 08/09/20 18:59 06:59 18:59 Intake Total 580 300 236 Output Total 1000 500 Balance -420 -200 236 Intake: Oral 580 300 236 Output: Urine 1000 500 Other: Voiding Method Ileal Conduit (Right) Ileal Conduit (Right) Ileal Conduit (Right) - Labs CBC & Chem 7: 08/09/20 05:24 08/09/20 05:24 Labs: Abnormal Lab Results - Last 24 Hours (Table) 08/08/20 08/08/20 08/09/20 Range/Units 16:01 21:22 05:24 RBC 3.37 L (3.80-5.40) m/uL Hgb 9.7 L (11.4-16.0) gm/dL Hct 30.6 L (34.0-46.0) % RDW 19.1 H (11.5-15.5) % Plt Count 536 H (150-450) k/uL Lymphocytes # 0.8 L (1.0-4.8) k/uL Sodium 130 L (137-145) mmol/L Potassium 2.8 L 3.1 L (3.5-5.1) mmol/L Glucose 115 H (74-99) mg/dL Calcium 7.8 L (8.4-10.2) mg/dL 08/09/20 Range/Units 05:24 RBC (3.80-5.40) m/uL Hgb (11.4-16.0) gm/dL Hct (34.0-46.0) % RDW (11.5-15.5) % Plt Count (150-450) k/uL Lymphocytes # (1.0-4.8) k/uL Sodium 134 L (137-145) mmol/L Potassium (3.5-5.1) mmol/L Glucose (74-99) mg/dL Calcium 8.0 L (8.4-10.2) mg/dL Microbiology - Last 24 Hours (Table) 08/08/20 17:12 Urine Culture - Preliminary Urine,Suprapubic 08/02/20 13:15 Blood Culture - Final Blood No Growth after 144 hours 08/02/20 13:00 Blood Culture - Final Blood No Growth after 144 hours
--- NOTE | 2020-08-09 18:31 | PN ---
PROGRESS NOTE DATE OF SERVICE: 08/09/2020 This 59-year-old woman who was admitted with abdominal distention, acute small-bowel obstruction and persistent dilatation of the small bowel loops, possible ileus, is being closely monitored at this time. The patient is still having nausea. No chest pain. No palpitations. No fever. The patient is on IV antibiotics for presumed UTI also. The patient was hypokalemic yesterday, which is being corrected. PHYSICAL EXAMINATION: Alert and oriented x3. Pulse 75, blood pressure 110/87, respirations 16, temperature 98.4, pulse ox 97% on room air. HEENT: Conjunctivae normal. NECK: No jugular venous distention. CARDIOVASCULAR SYSTEM: S1, S2 muffled. RESPIRATORY SYSTEM: Breath sounds diminished at the bases. A few scattered rhonchi. ABDOMEN: Soft. Mild diffuse distention. Mild diffuse discomfort. No guarding. No rigidity. LEGS: No edema. No swelling. NERVOUS SYSTEM: No focal deficit. LABS: Hemoglobin 9.7, sodium 134, potassium 3.9. ASSESSMENT: 1. Abdominal distention with acute small-bowel obstruction, persistent dilatation of small bowel loops, possible ileus. 2. Hyponatremia. 3. Hypokalemia. 4. Mild urinary tract infection, present on admission. 5. Severe metabolic acidosis. 6. Acute renal failure, acute tubular necrosis. 7. Elevated amylase and lipase; possible mild pancreatitis, present on admission. 8. Severe bilateral hydronephrosis. 9. History of asthma. 10.History of hearing defects. 11.History of degenerative joint disease. 12.History of pneumonia. 13.History of chronic back pain, degenerative joint disease. 14.History of bowel resection. 15.History of bariatric surgery. 16.History of bladder surgery. 17.History of cholecystectomy. 18.History of hysterectomy with long-standing indwelling Storey catheter previously. 19.Anxiety, depression, bipolar. 20.History of nicotine dependence. RECOMMENDATIONS AND DISCUSSION: I recommend to continue current medications, continue with the monitoring, symptomatic treatment. Continue with IV antibiotics. Repeat labs will be ordered for tomorrow. Guarded prognosis. Further recommendations to follow. MMODL / IJN: [id number] /
[2020-08-09] MEDS: ONDANSETRON 4 MG/2 ML VIAL IVP PRN (19:27)
[2020-08-09] MEDS: traZODone HCL 100 MG TAB PO SCH (21:25)
[2020-08-10] MEDS: HYDROmorphone 1 MG/ML 1 ML SYRINGE IVP PRN ×3 (00:12→08:36)
[2020-08-10] MEDS: ACETAMINOPHEN TAB 325 MG TAB PO PRN (00:13)
[2020-08-10] MEDS: ONDANSETRON 4 MG/2 ML VIAL IVP PRN ×2 (04:03→12:17)
[2020-08-10 07:27] LABS: Anisocytosis Slight; Basophils % (A) 1 %; Eosinophils # (A) 0.5 k/uL (0-0.7); Eosinophils % (A) 8 %; HGB 9.4 gm/dL (11.4-16.0); Hypochromasia Moderate; Lymphocytes % (A) 16 %; MCH 28.5 pg (25.0-35.0); MCHC 31.3 g/dL (31.0-37.0); MCV 91.1 fL (80.0-100.0); Monocytes # (A) 0.4 k/uL (0-1.0); Monocytes % (A) 7 %; Neutrophils # (A) 4.4 k/uL (1.3-7.7); Neutrophils % (A) 68 %; Platelet Count 477 k/uL (150-450); RDW 18.7 % (11.5-15.5); WBC 6.5 k/uL (3.8-10.6)
[2020-08-10 07:45] LABS: African American GFR (CKD) 58 (>60 ml/min/1.73 sqM); Anion Gap 3 mmol/L; Blood Urea Nitrogen 21 mg/dL (7-17); Carbon Dioxide 25 mmol/L (22-30); Chloride 104 mmol/L (98-107); Glucose 88 mg/dL (74-99); Non-African American GFR(CKD) 50 (>60 ml/min/1.73 sqM); Potassium 3.8 mmol/L (3.5-5.1); Sodium 132 mmol/L (137-145)
[2020-08-10] MEDS: ALBUTEROL HFA INHALER INHALATION PRN ×2 (08:01→11:23)
[2020-08-10] MEDS: HEPARIN SODIUM,PORCINE/PF 5,000 UNIT/0.5 ML SYRINGE SQ SCH (08:35)
[2020-08-10] MEDS: PANTOPRAZOLE 40 MG/10 ML VIAL IVP SCH (08:35)
[2020-08-10] MEDS: busPIRone HCl 5 MG TAB PO SCH (08:35)
[2020-08-10] MEDS: ALPRAZolam 1 MG TAB PO SCH (08:35)
[2020-08-10] MEDS: FAMOTIDINE 20 MG TAB PO SCH (08:35)
[2020-08-10] MEDS: carBAMazepine 200 MG TAB PO SCH (08:36)
[2020-08-10] MEDS: DULoxetine HCL 60 MG CAPSULE.DR PO SCH (08:36)
[2020-08-10] MEDS: METOPROLOL TARTRATE 12.5 MG TAB PO SCH (08:36)
[2020-08-10] MEDS ORDERED: HYDROcodone/APAP 10-325MG 1 EACH TAB PO ONE (11:42)
--- NOTE | 2020-08-10 11:43 | P.PN ---
Subjective Progress Note Date: 08/10/20 CHIEF COMPLAINT: Abdominal pain HISTORY OF PRESENT ILLNESS: Patient is being followed for a partial bowel obstruction. Patient is having bowel movements and is passing gas. She reports improvement in her abdominal distention. She reports decrease in abdominal pain. She is having diarrhea and nausea. She is on a regular diet. She's afebrile. WBC 6.5 hemoglobin 9.4 Cr 1.18 Patient seen and examined with Dr. howard PHYSICAL EXAM: VITAL SIGNS: Reviewed. GENERAL: Well-developed in no acute distress. HEENT: No sclera icterus. Extraocular movements grossly intact. Moist buccal mucosa. Head is atraumatic, normocephalic. ABDOMEN: Soft. Decrease in abdominal distention. Nontender. urostomy on the right of abdomen NEUROLOGIC: Alert and oriented. Cranial nerves II through XII grossly intact. ASSESSMENT: 1. Partial bowel obstruction with abdominal x-ray still showing persistent numerous dilated bowel loops with air-fluid levels correlate for obstruction 2. History of frozen abdomen status post exploratory laparotomy, lysis of adhesions and enteroenterostomy between dilated small bowel and transverse colon on 07/05/2020 3. History of bowel obstructions 4. Elevated lipase and amylase and prior history of pancreatitis. Repeat lipase normalized PLAN: -Patient is stable from surgical standpoint for discharge -No surgical intervention planned. Patient is not a surgical candidate. She has history of frozen abdomen. Recommend conservative management -Continue regular diet -3 day prescription of [place] 10 q6 hrs PRN was given. Then patient needs to follow-up with her PCP for chronic pain medication -Encourage patient to ambulate -She had prophylaxis Protonix and DVT prophylaxis subcu heparin Physician Senior Ssis Developer note has been reviewed by physician. Signing provider agrees with the documented findings, assessment, and plan of care. Objective - Vital Signs Vital signs: Vital Signs Temp 98.1 F 08/10/20 04:11 Pulse 75 08/10/20 04:11 Resp 16 08/10/20 04:11 BP 155/90 08/10/20 04:11 Pulse Ox 96 08/10/20 04:11 Intake & Output 08/09/20 08/10/20 08/10/20 18:59 06:59 18:59 Intake Total 758 600 Output Total 300 500 Balance 458 100 Weight 44.452 kg Intake: Intake, IV Titration 50 Amount cefTRIAXone 1 gm In 50 Sodium Chloride 0.9% 50 ml @ 100 mls/hr IVPB Q24HR [facility] Rx#:[id number] Oral 708 600 Output: Urine 300 500 Other: Voiding Method Ileal Conduit (Right) Ileal Conduit (Right) Ileal Conduit (Right) - Labs CBC & Chem 7: 08/10/20 06:15 08/10/20 06:15 Labs: Abnormal Lab Results - Last 24 Hours (Table) 08/10/20 08/10/20 Range/Units 06:15 06:15 RBC 3.30 L (3.80-5.40) m/uL Hgb 9.4 L (11.4-16.0) gm/dL Hct 30.0 L (34.0-46.0) % RDW 18.7 H (11.5-15.5) % Plt Count 477 H (150-450) k/uL Sodium 132 L (137-145) mmol/L BUN 21 H (7-17) mg/dL Creatinine 1.18 H (0.52-1.04) mg/dL Calcium 8.0 L (8.4-10.2) mg/dL Microbiology - Last 24 Hours (Table) 08/08/20 17:12 Urine Culture - Preliminary Urine,Suprapubic Coagulase Negative Staph Group D Enterococcus
[2020-08-10 13:21] VITALS: BP 157/99; PULSE 72; RESP 18; TEMP 98.3
--- NOTE | 2020-08-10 20:34 | P.DS ---
Providers Date of admission: 08/02/20 15:48 Expected date of discharge: 08/10/20 Attending physician: Maurilio Zhang Consults: 08/02/20 15:49 Consult Physician Urgent Consulting Provider: Saeed Munoz Consult Reason/Comments: Partial small bowel obstruction Do you want consulting provider notified?: Already Contacted 08/03/20 12:16 Consult Physician Routine Consulting Provider: Abdoul Calderon Consult Reason/Comments: bilateral hydronephosis Do you want consulting provider notified?: Yes Primary care physician: [facility] Course: Chief Complaint: Abdominal pain History of presenting complaint: This is a 59-year-old patient of Dr. Bolanos. Chronic stable medical conditions include hypertension, obesity with previous bariatric surgery with a small remnant status post stomach about 30 years ago, , bipolar disorder, hypertension, chronic back pain,. Patient had repeated blood infection with UTI and a chronic Storey catheter for 2 years. underwent partial bladder resection on January 08, 2019 [facility]. urostomy was created. Patient now presenting with 1 week of increasing pain in the epigastric area she described as stabbing pain. Also feels like a tight band across the area. Significant nausea. Not able to eat because of the same. Daughter has an appetite. No fever no chills. Computed tomography scan in the ER was nonspecific.. Patient was here from July 03 through July 12. Admitted with a frozen abdomen. With a small bowel obstruction. Patient underwent lysis of radiation antrostomy between dilated small bowel and transverse colon. Patient states she's had chronically had nausea. Since she left the hospital she's been eating small amounts. Easily gets distended. She has maybe couple of bowel movements a day. Patient is a been having increasing abdominal pain. Her family doctor ordered a CAT scan that showed evidence of ileus and possible small bowel obstruction. And she was admitted to the ER. Pain is rather significant in abdomen. Seen with Dr. Munoz. Patient not a candidate for any surgical intervention. Per urology-old patient right percutaneous nephrostomy tube to be done. Patient diet was advanced. Patient started having bowel movements. Today: Care was discussed at length with the patient. Dr. Munoz has reminded her that she noticed surgical candidate. Options are very limited. We'll also mentioned that things go rapidly worse even then hospice may be to be considered. She will follow with Dr. Munoz. Questions were answered. Also discussed with TANK SETTER with Dr. Munoz today. She is writing a prescription for some [place]. Discussion and discharge planning more than 35 minutes Consultation: Dr. Munoz from general surgery Dr. hernandez from urology Past medical history to include: Hypertension, obesity with previous bariatric surgery, bipolar disorder, hypertension, chronic back pain, partial bladder resection with the urostomy, pancreatitis, chronic back pain with pain stimulator, enterostomy small bowel to the transverse colon Social history: Lives alone . Patient smoked for close to 20 years and stopped in 1998. 2 packs a day. Recently started smoking again. No alcohol. Family history: Reviewed, noncontributory to presentation Physical examination: VITAL SIGNS: 98.3, 72, 18, 157/99, 99% room air GENERAL: , laying in bed, awake EYES: Pupils equal. Conjunctiva pale NECK: JVD not raised; masses not palpable. HEART: First and second heart sounds are normal; no edema. LUNGS: Respiratory rate normal; clear to auscultation. ABDOMEN: Soft, healed midline scar, mild tenderness no guarding rigidity no guarding or rigidity, liver spleen not palpable, no masses palpable, midline scar is present, urostomy bag-with clear urine PSYCH: AO - times three. Mood and affect normal INVESTIGATIONS, reviewed in the clinical context: August 10: WBC 6. 5/9 0.4 platelets 477 potassium 3.8 creatinine 1.18 August 03: Sodium 133 potassium 3 bicarbonate 10 creatinine 1.33 Abdominal x-ray: Correlate for ileus. Distal obstructive chain difficult to exclude. Computed tomography scan of the abdomen and pelvis without contrast: Persistent severe bilateral hydronephrosis. Persistent diffuse prominent bowel loops without transition point suggesting ileus. Fecal filled loops WBC 9.6 hemoglobin 10.9 platelets 96 6 potassium 3.6 bicarb 9 BUN 35 creatinine 1.39 Amylase 119 lipase 457 Lab work from July 12: Creatinine 1.45 Assessment and plan: -Acute small bowel obstruction versus ileus: This is a patient who July 12 underwent enterostomy to large bowel. Now presents with progressive increasing abdominal distention nausea vomiting.-Clinically improvement. Dr. Munoz -patient is not a surgical candidate. -Acute metabolic acidosis -improved IV fluids with bicarbonate supplement to continue -Essential hypertension Amlodipine and lisinopril discontinued. Continue with Lopressor -Bipolar disorder Continue with BuSpar Cymbalta Tegretol -History of Bladder surgery with ileal conduit Patient has a urostomy -Normocytic anemia, likely from anemia of chronic disease Follow H&H -Chronic kidney disease stage III likely nephrosclerosis Follow renal function -Hypokalemia-corrected Replace potassium Disposition: Home Patient Condition at Discharge: Fair Plan - Discharge Summary Discharge Rx Participant: Yes New Discharge Prescriptions: Continue carBAMazepine [TEGretol] 400 mg PO BID SUMAtriptan SUCCINATE [Imitrex] 100 mg PO DAILY PRN PRN Reason: Migraine Headache DULoxetine HCL [Cymbalta] 60 mg PO BID busPIRone HCL 15 mg PO TID Metoprolol Tartrate 25 mg PO BID ALPRAZolam [Xanax] 1 mg PO QID Dicyclomine HCl 20 mg PO TID PRN PRN Reason: Pain Albuterol Inhaler [Ventolin Hfa Inhaler] 2 puff INHALATION RT-Q4H PRN PRN Reason: Shortness Of Breath Butalb/APAP/Caff 50-325-40Mg [Fioricet 50-325-40] 1 tab PO Q4H PRN PRN Reason: Migraine Headache traZODone HCL [Desyrel] 100 mg PO HS Ondansetron [Zofran] 4 mg PO Q8HR PRN #20 tab PRN Reason: Nausea And Vomiting Pravastatin Sodium [Pravachol] 10 mg PO HS Tiotropium 18 Mcg/Puff [Spiriva] 1 puff INHALATION RT-DAILY Pantoprazole [Protonix] 40 mg PO BID #60 tab Promethazine [Phenergan] 25 mg PO Q12H PRN PRN Reason: Nausea Acetaminophen Tab [Tylenol] 650 mg PO Q4H PRN PRN Reason: Pain Ascorbic Acid [Vitamin C] 1,000 mg PO DAILY Glucosam/Mukund-Msm1/C/Steve/Bosw [Glucosamine-Chondroitin Tablet] 1 tab PO DAILY Multivitamins, Thera [Multivitamin (formulary)] 1 tab PO DAILY Cholecalciferol [Vitamin D3 (25 Mcg = 1000 Iu)] 25 mcg PO DAILY Diphenoxylate HCl/Atropine [Lomotil 2.5-0.025 mg Tablet] 1 - 2 tab PO QID PRN PRN Reason: Diarrhea HYDROcodone/APAP 10-325MG [[place] 10-325] 1 tab PO Q6HR PRN 3 Days #12 tab PRN Reason: Pain Discontinued Fluticasone Nasal [place] [Flonase Nasal [place]] 1 spray EA NOSTRIL DAILY Omeprazole [PriLOSEC] 40 mg PO DAILY #14 cap Zinc 50 mg PO DAILY amLODIPine [Norvasc] 10 mg PO DAILY Potassium Chloride ER [K-Dur 20] 40 meq PO DAILY #30 tab lisinopriL 40 mg PO DAILY Discharge Medication List DULoxetine HCL [Cymbalta] 60 mg PO BID 03/21/16 [History] SUMAtriptan SUCCINATE [Imitrex] 100 mg PO DAILY PRN 03/21/16 [History] carBAMazepine [TEGretol] 400 mg PO BID 03/21/16 [History] Metoprolol Tartrate 25 mg PO BID 02/02/19 [History] busPIRone HCL 15 mg PO TID 02/02/19 [History] ALPRAZolam [Xanax] 1 mg PO QID 04/20/19 [History] Dicyclomine HCl 20 mg PO TID PRN 04/20/19 [History] Albuterol Inhaler [Ventolin Hfa Inhaler] 2 puff INHALATION RT-Q4H PRN 08/04/19 [History] Butalb/APAP/Caff 50-325-40Mg [Fioricet 50-325-40] 1 tab PO Q4H PRN 08/04/19 [History] traZODone HCL [Desyrel] 100 mg PO HS 08/04/19 [History] Ondansetron [Zofran] 4 mg PO Q8HR PRN #20 tab 08/10/19 [Rx] Pravastatin Sodium [Pravachol] 10 mg PO HS 12/14/19 [History] Tiotropium 18 Mcg/Puff [Spiriva] 1 puff INHALATION RT-DAILY 12/14/19 [History] Pantoprazole [Protonix] 40 mg PO BID #60 tab 12/16/19 [Rx] Promethazine [Phenergan] 25 mg PO Q12H PRN 02/14/20 [History] Acetaminophen Tab [Tylenol] 650 mg PO Q4H PRN 03/11/20 [History] Ascorbic Acid [Vitamin C] 1,000 mg PO DAILY 03/11/20 [History] Glucosam/Mukund-Msm1/C/Steve/Bosw [Glucosamine-Chondroitin Tablet] 1 tab PO DAILY 03/11/20 [History] Multivitamins, Thera [Multivitamin (formulary)] 1 tab PO DAILY 03/11/20 [History] Cholecalciferol [Vitamin D3 (25 Mcg = 1000 Iu)] 25 mcg PO DAILY 05/30/20 [History] Diphenoxylate HCl/Atropine [Lomotil 2.5-0.025 mg Tablet] 1 - 2 tab PO QID PRN 06/29/20 [History] HYDROcodone/APAP 10-325MG [[place] 10-325] 1 tab PO Q6HR PRN 3 Days #12 tab 08/10/20 [Rx] Follow up Appointment(s)/Referral(s): Bran Hernandez MD [STAFF PHYSICIAN] - 1 Week (The office will call you with an appointment time and date.) Brenden Bolanos MD [Primary Care Provider] - 08/14/20 10:00 am (You will see lana Bishop) Saeed Munoz MD [STAFF PHYSICIAN] - 08/22/20 1:30 pm Patient Instructions/Handouts: Hydrocodone/Acetaminophen (By mouth), Bowel Obstruction (DC) Activity/Diet/Wound Care/Special Instructions: activity as tolerated Diet as tolerated Discharge Disposition: HOME SELF-CARE
== END 2020-08-10 14:02 | disposition home or self-care (01) | DRG 388 ==
LOC: EC 12:16 → 5NMEDONC 15:48
PROVIDERS: ADMIT Hospitalist; ATTEND Hospitalist
PROC: BT1 Imaging, Urinary System, Fluoroscopy (ICD-10-PCS; principal; 2020-08-04)
DX: K56.600 Partial intestinal obstruction, unspecified as to cause (principal); K85.90 Acute pancreatitis without necrosis or infection, unspecified; N17.0 Acute kidney failure with tubular necrosis; E87.2 Acidosis; E87.1 Hypo-osmolality and hyponatremia; N13.6 Pyonephrosis; F31.30 Bipolar disorder, current episode depressed, mild or moderate severity, unspecified; D63.1 Anemia in chronic kidney disease; K56.7 Ileus, unspecified; Z93.6 Other artificial openings of urinary tract status; N18.30 Chronic kidney disease, stage 3 unspecified; Z20.822 Contact with and (suspected) exposure to COVID-19; I12.9 Hypertensive chronic kidney disease with stage 1 through stage 4 chronic kidney disease, or unspecified chronic kidney disease; E86.0 Dehydration; E87.6 Hypokalemia; B95.2 Enterococcus as the cause of diseases classified elsewhere; B95.7 Other staphylococcus as the cause of diseases classified elsewhere; G89.29 Other chronic pain; M54.9 Dorsalgia, unspecified; J45.909 Unspecified asthma, uncomplicated; M19.90 Unspecified osteoarthritis, unspecified site; F41.9 Anxiety disorder, unspecified; G43.909 Migraine, unspecified, not intractable, without status migrainosus; G56.00 Carpal tunnel syndrome, unspecified upper limb; H91.90 Unspecified hearing loss, unspecified ear; F17.210 Nicotine dependence, cigarettes, uncomplicated; Z79.899 Other long term (current) drug therapy; Z90.6 Acquired absence of other parts of urinary tract; Z87.440 Personal history of urinary (tract) infections; Z87.01 Personal history of pneumonia (recurrent); Z96.82 Presence of neurostimulator; Z91.81 History of falling; Z90.49 Acquired absence of other specified parts of digestive tract; Z98.84 Bariatric surgery status; Z98.891 History of uterine scar from previous surgery; Z90.710 Acquired absence of both cervix and uterus; Z98.51 Tubal ligation status; Z87.19 Personal history of other diseases of the digestive system; Z87.42 Personal history of other diseases of the female genital tract; Z87.81 Personal history of (healed) traumatic fracture; Z60.2 Problems related to living alone; Z98.890 Other specified postprocedural states; Z81.1 Family history of alcohol abuse and dependence; Z82.0 Family history of epilepsy and other diseases of the nervous system; Z82.69 Family history of other diseases of the musculoskeletal system and connective tissue
CPT/HCPCS: 36415; 74018; 74019; 74176; 74430; 76770; 80048; 80053; 81001; 82150; 82550; 82565; 83605; 83690; 83735; 84132; 84484; 84520; 85025; 85610; 85730; 87040; 87077; 87086; 87186; 87636; 94640; 96361; 96374; 96375; 99285

== ENCOUNTER → 2020-08-02 | Outpatient (CLI) | payer MEDICARE, OTHER ==
--- NOTE | 2020-08-02 09:01 | CT ---
EXAMINATION TYPE: CT abdomen pelvis wo con DATE OF EXAM: 08/02/2020 HISTORY: h/o abd pain and distention CT DLP: 207.10 mGycm. Automated Exposure Control for Dose Reduction was Utilized. TECHNIQUE: CT scan of the abdomen and pelvis is performed with oral but without IV contrast. COMPARISON: CT abdomen and pelvis July 03, 2020 FINDINGS: Within the limitations of a non-contrast study, the following observations are made. LUNG BASES: Partial visualization of bilateral breast implants are redemonstrated. LIVER/GB: Cholecystectomy clips are redemonstrated. Persistent moderate central extrahepatic and left intrahepatic biliary dilatation near coronal image 31 not significantly changed from several prior s tudies. Right lobe prominence or hepatomegaly redemonstrated. PANCREAS: No significant abnormality is seen. SPLEEN: No significant abnormality is seen. ADRENALS: No significant abnormality is seen. KIDNEYS: Severe bilateral hydronephrosis redemonstrated. Absent [place] bladder once again noted. BOWEL: Surgical changes epigastric region from gastric bypass procedure again seen. Additional surgic al sutures scattered throughout the abdomen and upper pelvis. Patient has very little intra-abdominal fat and there is incomplete opacification of bowel loops making evaluation suboptimal. Persistent pr ominent contrast and fecal filled bowel loops throughout the left abdomen along with right lower quad rant and pelvis. This is even more prominent from recent CT one month earlier. Fecal prominence in th e colon along the periphery extending to rectum. Right-sided ostomy redemonstrated. On coronal images there are areas of prominent bowel loops particularly in the pelvis with local mass effect. In patie nt with extensive surgical history, internal hernia should be considered. UTERUS/ADNEXA: Uterus surgically absent or markedly atrophic. Surgical clips bilateral pelvis are red emonstrated. Scattered bilateral pelvic phleboliths are redemonstrated. LYMPH NODES: No new greater than 1cm abdominal or pelvic lymph nodes are appreciated. OSSEOUS STRUCTURES: No significant abnormality is seen. OTHER: Left posterior Spinal stimulator device ascends the thoracic spinal canal is redemonstrated. IMPRESSION: Persistent severe bilateral hydronephrosis. Persistent diffuse prominent bowel loops with out transition point suggesting ileus with probable partial bowel obstructions. I cannot exclude inte rnal hernias given the extensive surgical change in this patient and areas of focal prominent bowel l oops with focal mass effect. Findings slightly more progressed or more prominent from most recent CT study 1 month earlier.
== END | disposition home or self-care (01) ==
LOC: RADCTMAIN 06:52
PROVIDERS: ATTEND Nurse Practitioner Family
DX: N13.30 Unspecified hydronephrosis (principal)
CPT/HCPCS: 36415; 74176; 82565; 84520